=== PATIENT | female | born 1980 | race Caucasian/White ===

== ENCOUNTER 2017-05-06 16:42 | Emergency (ER) | payer OTHER ==
[2017-05-06] MEDS ORDERED: DIPHENHYDRAMINE 50 MG/ML VIAL ONE (17:22)
[2017-05-06] MEDS ORDERED: DEXAMETHASONE 10 MG/ML VIAL ONE (17:22)
[2017-05-06] MEDS ORDERED: TRAMADOL HCL 50 MG TAB ONE (17:22)
[2017-05-06] MEDS ORDERED: MAGNESIUM SULFATE 1 gm IVPB 1 GM/100 ML BAG IV ONE (17:23)
[2017-05-06] MEDS ORDERED: KETOROLAC 30 MG/ML INJ ONE (17:23)
[2017-05-06] MEDS ORDERED: ONDANSETRON 4 MG/2 ML VIAL ONE ×2 (17:39→18:00)
[2017-05-06] MEDS ORDERED: PROMETHAZINE 25 MG/ML VIAL ONE (18:57)
[2017-05-06] MEDS ORDERED: MEPERIDINE HCL 50 MG/ML AMP ONE (18:57)
--- NOTE | 2017-05-06 19:25 | ER ---
Nurse's Notes [facility] Name: Luis Felipe Nova Age: 37 yrs Sex: Female : 1980 Arrival Date: 05/06/2017 Time: 16:45 Bed 8 Private MD: Diagnosis: Migraine Presentation: 05/06 16:54 Presenting complaint: Patient states: Intractable migraine for one week. Similar to la1 previous. Transition of care: patient was not received from another setting of care. Onset of symptoms was May 06, 2017. Care prior to arrival: None. 16:54 Method Of Arrival: Ambulatory la1 16:54 Acuity: BRIANNA 3 la1 Triage Assessment: 16:57 Headache History: The patient has had previous headaches and this one is similar to la1 previous episodes. General: Appears in no apparent distress. Behavior is calm, cooperative. Pain: Pain currently is 8 out of 10 on a pain scale. Pain began 2-3 days ago. Also complains of nausea. Historical: - Allergies: 16:56 Sulfa (Sulfonamide Antibiotics); la1 16:56 Reglan; la1 - PMHx: 16:56 Migraines; la1 - Immunization history:: Adult Immunizations up to date. - Social history:: Smoking status: Patient/guardian denies using tobacco. Screenin:57 Abuse screen: Denies threats or abuse. Nutritional screening: No deficits noted. la1 Tuberculosis screening: No symptoms or risk factors identified. Fall Risk None identified. Assessment: 16:56 General: Appears in no apparent distress. Behavior is calm, cooperative. Pain: la1 Complains of pain in forehead, right eye and right cheek. Neuro: Level of Consciousness is awake, alert, obeys commands, Oriented to person, place, time, situation. Cardiovascular: Capillary refill < 3 seconds Patient's skin is warm and dry. Respiratory: Airway is patent Respiratory effort is even, unlabored, Respiratory pattern is regular, symmetrical. GI: No signs and/or symptoms were reported involving the gastrointestinal system. : No signs and/or symptoms were reported regarding the genitourinary system. Vital Signs: 16:56 BP 131 / 91; Pulse 94; Resp 16; Temp 98.3; Pulse Ox 100% on R/A; la1 19:04 BP 128 / 86; Pulse 96; Resp 16; Pulse Ox 100% on R/A; la1 19:39 BP 129 / 56; Pulse 89; Resp 19; Pulse Ox 100% on R/A; la1 ED Course: 16:45 Patient arrived in ED. mr 16:48 [facility] jr8 16:48 Mike Hernandez MD is Attending Physician. jr8 16:54 Juan Jose Ordoñez, KEESHA is Primary Nurse. la1 16:55 Triage completed. la1 16:56 Arm band placed on left wrist. la1 16:57 Bed in low position. Call light in reach. la1 19:40 No provider procedures requiring assistance completed. IV discontinued, intact, la1 bleeding controlled, No redness/swelling at site. Pressure dressing applied. Administered Medications: 17:24 Drug: Decadron - Dexamethasone 10 mg Route: IVP; Site: right antecubital; la1 17:38 Follow up: Response: No adverse reaction la1 17:24 Drug: Benadryl 50 mg Route: IVP; Site: right antecubital; la1 17:38 Follow up: Response: No adverse reaction la1 17:24 Drug: Magnesium Sulfate 1 grams Route: IVPB; Infused Over: 1 hrs; Site: right la1 antecubital; 19:41 Follow up: IV Status: Completed infusion la1 17:24 Drug: traMADol 100 mg Route: PO; la1 17:38 Follow up: Response: No adverse reaction; Pain is decreased la1 17:24 Drug: Zofran 4 mg Route: IVP; Site: right antecubital; la1 17:38 Follow up: Response: No adverse reaction la1 17:25 Drug: TORadol 30 mg Route: IVP; Site: right antecubital; la1 17:38 Follow up: Response: No adverse reaction; Pain is decreased la1 17:43 Drug: Zofran 4 mg Route: IVP; Site: right antecubital; la1 19:41 Follow up: Response: No adverse reaction la1 18:46 Drug: Demerol 50 mg Route: IVP; Site: right antecubital; la1 19:41 Follow up: Response: No adverse reaction; Pain is decreased la1 18:47 Drug: Phenergan 25 mg Route: IVP; Site: right antecubital; la1 19:41 Follow up: Response: No adverse reaction la1 Outcome: 19:24 Discharge ordered by . adam 19:40 Discharged to home ambulatory. la1 19:40 Condition: stable 19:40 Discharge instructions given to patient, Instructed on discharge instructions, follow up and referral plans. medication usage, Demonstrated understanding of instructions, follow-up care. 19:40 Patient left the ED. la1 Signatures: Rachael Godinez mr Bryan Griffiths PA PA jr8 Attema, Lee, RN RN la1
--- NOTE | 2017-05-06 19:25 | EDPHYS ---
Physician Documentation [facility] Name: Luis Felipe Nova Age: 37 yrs Sex: Female : 1980 Arrival Date: 05/06/2017 Time: 16:45 Bed 8 Private MD: ED Physician Mike Hernandez HPI: 05/06 18:42 This 37 yrs old Female presents to ER via Ambulatory with complaints of jr8 Headache. 18:42 The patient complains of pain to the forehead. The patient describes the headache as jr8 constant, throbbing. Onset: The symptoms/episode began/occurred acutely, 1 week(s) ago. Associated signs and symptoms: Pertinent positives: nausea, Photophobia. Severity of symptoms: At its worst the pain was moderate, in the emergency department the pain is unchanged. Headache History: The patient has had previous headaches and this one is similar to previous episodes. The symptoms are alleviated by nothing. the symptoms are aggravated by lights, movement, noise. The patient has experienced similar episodes in the past, a few times. The patient has not recently seen a physician. Stated that ever since she had bacterial meningitis 4 years ago. Has had on/off headaches. Sees neurology for them. Tried her OTC medicines for acute headache but did not respond to them. Historical: - Allergies: 16:56 Sulfa (Sulfonamide Antibiotics); la1 16:56 Reglan; la1 - PMHx: 16:56 Migraines; la1 - Immunization history:: Adult Immunizations up to date. - Social history:: Smoking status: Patient/guardian denies using tobacco. ROS: 18:42 Eyes: Negative for injury, pain, redness, and discharge, ENT: Negative for injury, jr8 pain, and discharge, Neck: Negative for injury, pain, and swelling, Cardiovascular: Negative for chest pain, palpitations, and edema, Respiratory: Negative for shortness of breath, cough, wheezing, and pleuritic chest pain, Abdomen/GI: Negative for abdominal pain, nausea, vomiting, diarrhea, and constipation, Back: Negative for injury and pain, MS/Extremity: Negative for injury and deformity, Skin: Negative for injury, rash, and discoloration. 18:42 Neuro: Positive for headache, Negative for altered mental status, dizziness, gait disturbance, hearing loss, loss of consciousness, numbness, seizure activity, speech changes, syncope, near syncope, tingling, tinnitus, tremor, visual changes, weakness. Exam: 18:42 Head/Face: Normocephalic, atraumatic. Eyes: Pupils equal round and reactive to light, jr8 extra-ocular motions intact. Lids and lashes normal. Conjunctiva and sclera are non-icteric and not injected. Cornea within normal limits. Periorbital areas with no swelling, redness, or edema. ENT: Nares patent. No nasal discharge, no septal abnormalities noted. Tympanic membranes are normal and external auditory canals are clear. Oropharynx with no redness, swelling, or masses, exudates, or evidence of obstruction, uvula midline. Mucous membranes moist. Neck: Trachea midline, no thyromegaly or masses palpated, and no cervical lymphadenopathy. Supple, full range of motion without nuchal rigidity, or vertebral point tenderness. No Meningismus. Cardiovascular: Regular rate and rhythm with a normal S1 and S2. No gallops, murmurs, or rubs. Normal PMI, no JVD. No pulse deficits. Respiratory: Lungs have equal breath sounds bilaterally, clear to auscultation and percussion. No rales, rhonchi or wheezes noted. No increased work of breathing, no retractions or nasal flaring. Abdomen/GI: Soft, non-tender, with normal bowel sounds. No distension or tympany. No guarding or rebound. No evidence of tenderness throughout. Back: No spinal tenderness. No costovertebral tenderness. Full range of motion. Skin: Warm, dry with normal turgor. Normal color with no rashes, no lesions, and no evidence of cellulitis. MS/ Extremity: Pulses equal, no cyanosis. Neurovascular intact. Full, normal range of motion. Neuro: Awake and alert, GCS 15, oriented to person, place, time, and situation. Cranial nerves II-XII grossly intact. Motor strength 5/5 in all extremities. Sensory grossly intact. Cerebellar exam normal. Normal gait. Vital Signs: 16:56 BP 131 / 91; Pulse 94; Resp 16; Temp 98.3; Pulse Ox 100% on R/A; la1 19:04 BP 128 / 86; Pulse 96; Resp 16; Pulse Ox 100% on R/A; la1 19:39 BP 129 / 56; Pulse 89; Resp 19; Pulse Ox 100% on R/A; la1 MDM: 16:48 Patient medically screened. jr8 19:23 Data reviewed: vital signs, nurses notes, and as a result, I will discharge patient. jr8 Data interpreted: Pulse oximetry: on room air is 100 %. Interpretation: normal. Counseling: I had a detailed discussion with the patient and/or guardian regarding: the historical points, exam findings, and any diagnostic results supporting the discharge/admit diagnosis, the need for outpatient follow up, a neurologist, to return to the emergency department if symptoms worsen or persist or if there are any questions or concerns that arise at home. Response to treatment: the patient's symptoms have markedly improved after treatment. 05/06 17:00 Order name: IV; Complete Time: 17:25 jr8 Administered Medications: 17:24 Drug: Decadron - Dexamethasone 10 mg Route: IVP; Site: right antecubital; la1 17:38 Follow up: Response: No adverse reaction la1 17:24 Drug: Benadryl 50 mg Route: IVP; Site: right antecubital; la1 17:38 Follow up: Response: No adverse reaction la1 17:24 Drug: Magnesium Sulfate 1 grams Route: IVPB; Infused Over: 1 hrs; Site: right la1 antecubital; 19:41 Follow up: IV Status: Completed infusion la1 17:24 Drug: traMADol 100 mg Route: PO; la1 17:38 Follow up: Response: No adverse reaction; Pain is decreased la1 17:24 Drug: Zofran 4 mg Route: IVP; Site: right antecubital; la1 17:38 Follow up: Response: No adverse reaction la1 17:25 Drug: TORadol 30 mg Route: IVP; Site: right antecubital; la1 17:38 Follow up: Response: No adverse reaction; Pain is decreased la1 17:43 Drug: Zofran 4 mg Route: IVP; Site: right antecubital; la1 19:41 Follow up: Response: No adverse reaction la1 18:46 Drug: Demerol 50 mg Route: IVP; Site: right antecubital; la1 19:41 Follow up: Response: No adverse reaction; Pain is decreased la1 18:47 Drug: Phenergan 25 mg Route: IVP; Site: right antecubital; la1 19:41 Follow up: Response: No adverse reaction la1 Disposition: 05/06/17 19:24 Discharged to Home. Impression: Migraine. - Condition is Stable. - Discharge Instructions: Migraine Headache. - Medication Reconciliation Form, Thank You Letter, Antibiotic Education, Prescription Opioid Use form. - Follow up: Private Physician; When: 2 - 3 days; Reason: Recheck today's complaints, Continuance of care, Re-evaluation by your physician. - Problem is new. - Symptoms have improved. Addendum: 05/08/2017 07:00 Co-signature as Attending Physician, Mike Hernandez MD I agree with the assessment and k dr plan of care. Signatures: Mike Hernandez MD MD [facility] Bryan Griffiths PA PA jr8 Juan Jose Ordoñez RN RN la1
[2017-05-06 19:44] VITALS: TEMP 98.3; O2SAT 100
[2017-05-06 19:46] VITALS: BP 129/56
== END 2017-05-06 19:40 | disposition home or self-care (01) ==
LOC: ER 16:42
DX: G43.909 Migraine, unspecified, not intractable, without status migrainosus (principal); Z88.2 Allergy status to sulfonamides; Z88.8 Allergy status to other drugs, medicaments and biological substances
CPT/HCPCS: 96365; 96366; 96375; 99283; J1100; J2175; J2405; J2550; J3475

== ENCOUNTER 2017-06-07 16:18 | Emergency (ER) | payer OTHER ==
--- OUTSIDE RECORDS SUMMARY | 2017-06-07 16:22 | XMS REPORT | Clinical Summary ---
:1980 Author Organization [facility] Address [address] [place] [address] Care Team Providers Name Role Phone Prudence Carr MD Primary Care Provider Allergies Active Allergy Reactions Severity Noted Date Comments Metoclopramide Hcl Diarrhea High 03/03/2016 Sulfa (Sulfonamide Antibiotics) Hives, Rash High 06/12/2013 Current Medications Prescription Sig. Disp. Refills Start End Status Date Date hydroxychloroquine TAKE 1 TABLET 1 Active (PLAQUENIL) 200 mg (200 MG TOTAL) 7 tablet BY MOUTH DAILY FOR 90 DAYS. estrogens, conjugated, Take 1.25 mg by Active (PREMARIN) 1.25 MG mouth daily. tablet levothyroxine Take 137 mcg by 90 tablet 3 Active (SYNTHROID, LEVOXYL) mouth every 7 137 mcg tablet morning. ARNUITY ELLIPTA 100 Active mcg/actuation blister 8 with device butalbital-acetaminoph Take 2 tablets 180 tablet 0 Active en-caff (FIORICET, by mouth 3 8 018 ESGIC) 50-325-40 mg (three) times a per tablet day for 30 days. gabapentin (NEURONTIN) Take 1 capsule 90 capsule 0 Active 100 mg capsule (100 mg total) 8 018 by mouth 3 (three) times a day for 30 days. zonisamide (ZONEGRAN) Take 1 capsule 30 capsule 0 Active 100 MG capsule (100 mg total) 8 018 by mouth nightly for 30 days. DULoxetine (CYMBALTA) Take 1 capsule 60 capsule 0 Active 60 MG capsule (60 mg total) 8 018 by mouth 2 (two) times a day for 30 days. traZODone (DESYREL) Take 1 tablet 30 tablet 0 Active 100 MG tablet (100 mg total) 8 018 by mouth every evening for 30 days. escitalopram (LEXAPRO) Take 20 mg by Discontinued 20 MG tablet mouth every 017 morning. estrogens, conjugated, Take 1 tablet 90 tablet 3 Discontinued (PREMARIN) 1.25 MG (1.25 mg total) 6 017 tabletIndications: Hot by mouth daily. flashes due to menopause pimecrolimus (ELIDEL) Apply 1 Discontinued 1 % cream application 017 topically every evening. topiramate (TOPAMAX) 1 tab qAM, 1 75 tablet 5 Discontinued 50 MG tablet 1/2 tabs qPM 7 017 dihydroergotamine 1 spray in each 8 mL 11 Discontinued (MIGRANAL) 0.5 mg/pump nostril at the 7 017 act. (4 mg/mL) nasal onset of spray migraine. Repeat after 15 minutes if needed SYNTHROID 112 mcg TAKE 1 TABLET 30 tablet 1 Discontinued tablet (112 MCG TOTAL) 7 017 BY MOUTH EVERY MORNING. promethazine Take 1 tablet 30 tablet 0 (PHENERGAN) 25 MG (25 mg total) 7 017 tabletIndications: by mouth every Nausea 6 (six) hours as needed for nausea or vomiting for up to 30 days. valproic acid Take 250 mg by Discontinued (DEPAKENE) 250 mg mouth 2 (two) 7 018 capsule times a day. docusate sodium Take 1 capsule 60 capsule 0 (COLACE) 100 MG (100 mg total) 7 017 capsule by mouth 2 (two) times a day for 30 days. hyoscyamine Take 1 tablet 90 tablet 0 (LEVSIN/SL) 0.125 mg (0.125 mg 7 017 SL tablet total) by mouth every 4 (four) hours as needed for cramping for up to 30 days. sodium,potassium,mag Use as 2 Bottle 0 Discontinued sulfates (SUPREP BOWEL directed, 7 017 PREP KIT) dispense entire 17.5-3.13-1.6 gram kit recon soln PROMETHAZINE HCL Take by mouth Discontinued (PROMETHAZINE ORAL) as needed. 017 doxepin 6 mg tablet Take 6 mg by 90 tablet 0 Discontinued mouth nightly. 7 017 levothyroxine Take 1 tablet 30 tablet 1 Discontinued (SYNTHROID, LEVOXYL) (125 mcg total) 7 017 125 mcg tablet by mouth every morning. doxylamine (UNISON) 25 Take 1 tablet 30 tablet 0 mg tablet (25 mg total) 7 017 by mouth nightly as needed for sleep for up to 30 days. azithromycin Discontinued (ZITHROMAX) 250 MG 7 017 tablet meloxicam (MOBIC) 15 Take 1 tablet 30 tablet 2 Discontinued mg tabletIndications: (15 mg total) 7 017 Positive LISY by mouth daily. (antinuclear antibody) traMADol (ULTRAM) 50 Take 1 tablet 9 tablet 0 mg tablet (50 mg total) 7 017 by mouth every 8 (eight) hours as needed for moderate pain for up to 3 days. levothyroxine Take 137 mcg by 30 tablet 4 Discontinued (SYNTHROID, LEVOXYL) mouth every 7 017 137 mcg tablet morning. hydroxychloroquine Take 1 tablet 180 tablet 1 (PLAQUENIL) 200 mg (200 mg total) 7 017 tablet by mouth daily for 90 days. DULoxetine (CYMBALTA) 1 CAPSULE BY 1 Discontinued 60 MG capsule MOUTH DAILY 7 018 bacitracin 500 Apply topically 28 g 1 unit/gram ointment 2 (two) times a 7 017 day for 14 days. doxycycline Take 1 capsule 20 capsule 0 (VIBRAMYCIN) 50 MG (50 mg total) capsule by mouth 2 (two) times a day for 10 days. bacitracin ointment APPLY TOPICALLY 1 Discontinued tube 2 (TWO) TIMES A 017 DAY FOR 14 DAYS. nitrofurantoin, Take 1 capsule 10 capsule 0 macrocrystal-monohydra (100 mg total) te, (MACROBID) 100 MG by mouth 2 capsule (two) times a day for 5 days. meloxicam (MOBIC) 15 TAKE 1 TABLET 30 tablet 2 Discontinued mg tabletIndications: (15 MG TOTAL) Positive LISY BY MOUTH DAILY. (antinuclear antibody) ACETAMINOPHEN (TYLENOL Take 1 tablet Discontinued ORAL) by mouth daily 017 as needed (for mild pain). diazePAM (VALIUM) 10 One tablet by 1 tablet 0 MG tabletIndications: mouth 45 mins 017 Anxiety before proceedure traZODone (DESYREL) 50 Take 50 mg by 1 Discontinued MG tablet mouth every 7 017 evening. acetaminophen Take 500 mg by Discontinued (TYLENOL) 500 MG mouth every 4 018 tablet (four) hours as needed for mild pain. levothyroxine Take 137 mcg by Discontinued (SYNTHROID, LEVOXYL) mouth every 017 137 mcg tablet morning. meloxicam (MOBIC) 15 Take 15 mg by Discontinued mg tablet mouth daily. 018 traZODone (DESYREL) 50 Take 50 mg by Discontinued MG tablet mouth every 018 evening. FLUoxetine (PROzac) 20 Take 40 mg by Discontinued MG capsule mouth daily. 018 traMADol-acetaminophen Take 1 tablet 10 tablet 0 (ULTRACET) 37.5-325 mg by mouth every 7 017 per tablet 6 (six) hours as needed for moderate pain for up to 5 days. predniSONE (DELTASONE) Take 1 tablet 5 tablet 0 50 mg tablet (50 mg total) 7 017 by mouth daily for 5 days. naproxen (NAPROSYN) Take 1 tablet 14 tablet 0 Discontinued 500 MG tablet (500 mg total) 8 018 by mouth 2 (two) times a day with meals for 7 days. PREMARIN 1.25 mg TAKE 1 TABLET 90 tablet 1 Discontinued tabletIndications: Hot (1.25 MG TOTAL) 8 018 flashes due to BY MOUTH DAILY. menopause meloxicam (MOBIC) 15 TAKE 1 TABLET 30 tablet 2 Discontinued mg tabletIndications: (15 MG TOTAL) 8 018 Positive LISY BY MOUTH DAILY. (antinuclear antibody) traMADol (ULTRAM) 50 Take 1 tablet 120 tablet 0 mg tablet (50 mg total) 8 018 by mouth every 6 (six) hours as needed for moderate pain for up to 31 days. predniSONE (DELTASONE) Days 1-3:8 tab 120 tablet 1 5 mg PO AM;4-7 7 tab 8 018 tabletIndications: PO AM;8-11:6 Myalgia tab PO AM;12-15-5 tab PO AM;16-19:4 tab PO AM;20-23:3 tab PO AM;24-27:2 tab PO AM;28-31:1 tab PO methylPREDNISolone follow package 21 tablet 0 (MEDROL DOSEPAK) 4 mg directions 8 018 tablet promethazine Take 1 tablet 20 tablet 0 (PHENERGAN) 12.5 MG (12.5 mg total) 8 018 tablet by mouth every 6 (six) hours as needed for nausea or vomiting for up to 5 days. Active Problems Problem Noted Date Status migrainosus 05/14/2017 Chest pain 01/05/2017 Migraine with status migrainosus 03/04/2016 Acquired hypothyroidism 02/16/2016 Deep vein thrombosis 02/07/2014 Overview: had blood clot to left arm from IV, treated with bld.thinner for 6 mos.and cleared now. Anxiety and depression Encounters Date Type Specialty Care Team Description 05/25/2017 Procedure Pass Obstetrics and Gynecology 05/24/2017 Telephone Gastroenterology Jodi Cohn MA 05/17/2017 Orders Only Radiology Josue Mclaughlin 05/14/2017 [facility] Obstetrics and Chuy Wang Status migrainosus ( Primary Dx); - Encounter Gynecology MD Alton Intractable headache, unspecified chronicity pattern, unspecified headache type 05/26/2017 Mike Leyva MD Ahmed, Rezwan, MD Nguyen, Leanne, MD 05/07/2017 Emergency Emergency Medicine Mike Leyva Intractable migraine MD Surendra without aura and without status migrainosus (Primary Dx) 04/29/2017 Hospital Radiology Jessy, Generalized abdominal Encounter Leonidas Amato MD pain 04/28/2017 Telephone Gastroenterology Leonidas Jiménez MD 04/20/2017 Telephone Rheumatology Juliana Jin MA 04/14/2017 Office Visit Gastroenterology Jessy, Meka abdominal Leonidas Amato MD pain (Primary Dx) 04/14/2017 Telephone Gastroenterology Jodi Cohn MA 03/31/2017 Telephone Gastroenterology Ginger Magallon LVN 03/29/2017 Orders Only Rheumatology Radu Curry IgA deficiency (Primary Dx); MD Kiel Diarrhea due to malabsorption 03/29/2017 Orders Only Rheumatology Juliana Jin MA 03/22/2017 Telephone Rheumatology Juliana Jin MA 03/21/2017 Orders Only Rheumatology Davin, Parathyroid abnormality ( Primary Dx); FABIO Andrews Myalgia 03/16/2017 Orders Only Rheumatology Davin, Pain of upper abdomen FABIO Andrews (Primary Dx) 03/15/2017 Office Visit Rheumatology Radu Curry Myalgia (Primary Dx); MD Kiel Positive LISY (antinuclear antibody); Epigastric pain; Hypocalcemia; 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; Encounter for long-term (current) use of NSAIDs; Vitamin D deficiency 03/14/2017 Orders Only Rheumatology Juliana Jin MA 03/11/2017 Lab Lab Leonidas Jiménez MD 03/03/2017 Telephone Gastroenterology Leonidas Jiménez MD 03/02/2017 Hospital Radiology [place], Abnormal ultrasound Encounter Prudence Kramer MD of liver 03/02/2017 Telephone Gastroenterology Jodi Cohn MA 02/24/2017 Office Visit Rheumatology Radu Curry Costochondritis ( Primary Dx); MD Kiel Myalgia; Positive LISY (antinuclear antibody); Epigastric pain; Iron deficiency anemia due to chronic blood loss 02/24/2017 Refill Rheumatology Radu Curry Positive LISY MD Kiel (antinuclear antibody) 02/18/2017 Office Visit Internal Medicine [place], Pleurisy (Primary Dx); Prudence Kramer MD Abnormal ultrasound of liver 02/18/2017 Procedure Pass Radiology 02/18/2017 Refill Obstetrics and [place], Hot flashes due to Gynecology [place], menopause 02/18/2017 Abstract Cardiothoracic Surgery Claudy Garber MD 02/04/2017 Orders Only Internal Medicine Mary Givens MA 01/17/2017 Telephone Gastroenterology Jodi Cohn MA 01/09/2017 Emergency Emergency Medicine Stuart, Ángela, Other chest pain PA (Primary Dx) Mike Leyva MD 01/05/2017 Emergency General Internal Ángela Davidson, Chest pain, unspecified type (Primary Dx); - Medicine PA Anxiety and depression 01/08/2017 Reymundo Heart MD Nguyen, Leanne, MD 01/05/2017 Hospital Radiology [place], Shortness of breath Encounter Prudence Kramer MD 01/05/2017 Office Visit Internal Medicine [place], Shortness of breath Prudence Kramer MD (Primary Dx) 01/03/2017 Orders Only Internal Medicine Adelina Wiley, Myalgia (Primary Dx ); FABIO Positive LISY (antinuclear antibody) 01/01/2017 Emergency Emergency Medicine Jn Muro Chronic right-sided low back pain without sciatica (Primary Dx); MD Enrico Myalgia; Chest pain, unspecified type 12/21/2016 Telephone Gastroenterology Jodi Cohn MA 12/14/2016 Lab Lab Ami Suarez MD 12/14/2016 Hospital Radiology [place], Calcification of Encounter Ami Ordoñez, right breast 12/14/2016 Hospital Radiology Erick, Calcification of Encounter [place] Ordoñez, right breast 12/14/2016 Hospital Radiology [place], Calcification of Encounter [place] Ordoeñz, right breast 12/14/2016 Ancillary Orders Access [place], Calcification of Ami Ordoñez, right breast 12/14/2016 Ancillary Orders Access [place], Calcification of [place] Ordoñez, right breast 12/06/2016 Hospital Radiology [place], Right flank pain Encounter Prudence Kramer MD 11/30/2016 Office Visit Internal Medicine [place], Right flank pain Prudence Kramer MD (Primary Dx) 11/30/2016 Refill Obstetrics and Danilo, Anxiety (Primary Dx) Gynecology YAMIL Alexander 11/26/2016 Transcribe Orders Access [place], Calcification of right breast ( Primary Dx); [place], Breast calcifications 11/26/2016 Telephone Radiology Efren Gutierrez RN 11/25/2016 Hospital Radiology [place], Breast discharge Encounter Ami Ordoñez MD 11/25/2016 Hospital Radiology [place], Breast discharge Encounter Ami Ordoñez MD 11/25/2016 Ancillary Orders Obstetrics and [place], Breast discharge Gynecology Ami Ordoñez MD 11/25/2016 Ancillary Orders Obstetrics and [place], Breast discharge Gynecology Ami Ordoñez MD 11/21/2016 Refill Rheumatology Radu Curry MD (antinuclear antibody) 11/17/2016 Telephone Obstetrics and [place], Breast discharge Gynecology YAMIL Alexander (Primary Dx) 11/10/2016 Office Visit Internal Medicine [place], Back pain, Prudence Kramer MD unspecified back location, unspecified back pain laterality, unspecified chronicity (Primary Dx) 10/24/2016 Orders Only Internal Medicine [place], Paronychia of toe, Prudence Kramer MD unspecified laterality (Primary Dx) 10/21/2016 Office Visit Internal Medicine [place], Acquired hypothyroidism (Primary Dx); Prudence Kramer MD Other forms of migraine with status migrainosus; Anxiety and depression 09/13/2016 Orders Only Rheumatology Juliana Jin MA 09/07/2016 Orders Only Internal Medicine [place], Prudence Kramer MD 09/03/2016 Orders Only Internal Medicine [place], Acquired Prudence Kramer MD hypothyroidism (Primary Dx) 09/02/2016 Office Visit Internal Medicine [place], Anxiety and depression (Primary Dx); Prudence Kramer MD Acquired hypothyroidism; Tightness in chest 09/01/2016 Emergency Emergency Medicine [place], Shortness of breath Harshil Ruiz (Primary Dx) 08/30/2016 Office Visit Rheumatology Radu Curry Positive LISY ( antinuclear antibody) (Primary Dx); MD Kiel Myalgia; Fatigue, unspecified type 08/12/2016 Orders Only Internal Medicine Zoila Zepeda MD 08/11/2016 Office Visit Internal Medicine Katelyn, Myalgia (Primary Dx); MD Zoila Acquired hypothyroidism; Muscle cramp; Positive LISY (antinuclear antibody); Sleep disturbance; Mild episode of recurrent major depressive disorder 08/04/2016 Telephone Rheumatology Juliana Jin MA 07/26/2016 Office Visit Internal Medicine [place], Left lower quadrant pain (Primary Dx); Prudence Kramer MD Depression, unspecified depression type; Acquired hypothyroidism 07/26/2016 Lab Lab Radu Curry Raynaud's disease without gangrene; MD Kiel History of miscarriage; Other forms of migraine with status migrainosus; Deep vein thrombosis (DVT) of other vein of left upper extremity, unspecified chronicity; Acquired hypothyroidism; Cholecystitis without calculus; Chronic bilateral low back pain without sciatica 07/26/2016 Office Visit Rheumatology Radu Curry History of miscarriage (Primary Dx); MD Kiel Raynaud's disease without gangrene; Acquired hypothyroidism; Other forms of migraine with status migrainosus; Deep vein thrombosis (DVT) of other vein of left upper extremity, unspecified chronicity; Chronic bilateral low back pain without sciatica; Cholecystitis without calculus 07/19/2016 Office Visit Internal Medicine [place], Left lower quadrant pain (Primary Dx); Prudence Kramer MD Depressive disorder; Acquired hypothyroidism 07/14/2016 Telephone Obstetrics and [place], Pelvic pain in female Gynecology YAMIL Alexander (Primary Dx) 07/07/2016 Lab Lab Leonidas Jiménez MD 07/06/2016 [facility] Radiology [place], Abnormal finding on Encounter Prudence Kramer MD radiology exam 06/30/2016 Telephone Gastroenterology Jodi Cohn MA 06/29/2016 Procedure Pass Radiology 06/29/2016 Orders Only Internal Medicine Adelina Wiley, Abnormal finding on ID radiology exam (Primary Dx) 06/28/2016 Hospital Radiology [place], LLQ pain Encounter Leonidas Amato MD 06/24/2016 Telephone Gastroenterology Lalit, LLQ pain (Primary Dx) FABIO Zapata 06/23/2016 Office Visit Gastroenterology Jessy, Left lower quadrant pain (Primary Dx); Leonidas Amato MD Change in bowel habits 06/21/2016 Office Visit Internal Medicine [place], Chest pressure ( Primary Dx); Prudence Kramer MD Abdominal distention; Hypothyroidism, unspecified type; Constipation, unspecified constipation type 06/18/2016 Telephone Obstetrics and [place], Nausea (Primary Dx) Gynecology 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, 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 06/16/2016 Office Visit Obstetrics and [place], Pelvic pain in female Gynecology Ami Ordoñez (Primary Dx) after 06/06/2016 Immunizations Name Dates Previously Given Next Due Tdap 03/29/2008 Family History Medical History Relation Name Comments Diabetes Father Thyroid disease Father Diabetes Maternal Grandfather Cancer Maternal Grandmother Fibromyalgia Mother Colon cancer Paternal Grandfather Relation Name Status Comments Father Alive Maternal Grandfather Alive Maternal Grandmother Mother Alive Paternal Grandfather Alive Social History Tobacco Use Types Packs/Day Years Used Date Never Smoker Smokeless Tobacco: Never Used Alcohol Use Drinks/Week oz/Week Comments Yes social Sex Assigned at Date Recorded Not on file Last Filed Vital Signs Vital Sign Reading Time Taken Blood Pressure 132/74 05/26/2017 8:27 AM CDT Pulse 79 05/26/2017 8:27 AM CDT Temperature 36.3 C (97.3 F) 05/26/2017 8:27 AM CDT Respiratory Rate 18 05/26/2017 8:27 AM CDT Oxygen Saturation 97% 05/26/2017 8:27 AM CDT Inhaled Oxygen Concentration - - Weight 113 kg (250 lb) 05/17/2017 12:30 PM CDT Height 167.6 cm (5' 6") 05/17/2017 12:30 PM CDT Body Mass Index 40.35 05/17/2017 12:30 PM CDT Plan of Treatment Date Type Specialty Care Team Description 06/09/2017 Office Visit Rheumatology Kaleigh López [place] [address] [id number] Health Maintenance Due Date Last Done Comments PAP SMEAR 02/11/2014 02/11/2011 INFLUENZA VACCINE 09/07/2017 Procedures Procedure Name Priority Date/Time Associated Comments Diagnosis ECHOCARDIOGRAM 2D Routine 01/07/2017 3:45 Results for this COMPLETE W MMODE PM [employer] procedure are in SPECTRAL COLOR DOPPLER the results (45787) section. CV STRESS TEST NUCLEAR Routine 01/06/2017 9:07 Results for this CARDIO AM [employer] SCI[employer]ACTITIONER procedure are in the results section. after 06/06/2016 Results MRI Brain Wo Contrast (05/25/2017 4:31 PM) Specimen Performing Laboratory [facility] [address] [place] [id number] Narrative EXAMINATION:MRI BRAIN WO CONTRAST CLINICAL HISTORY:speech change COMPARISON:May 17, 2017 Findings: No intracranial hemorrhage, acute ischemia, extra-axial fluid collections or parenchymal mass lesions. No hydrocephalus. No suspicious focal bone marrow lesions. Major flow voids are maintained. IMPRESSION: No acute intracranial abnormalities or mass lesions. [id number] Procedure Note Interface, Radiology Results Incoming - 05/25/2017 4:52 PM CDT EXAMINATION: MRI BRAIN WO CONTRAST CLINICAL HISTORY: speech change COMPARISON: May 17, 2017 Findings: No intracranial hemorrhage, acute ischemia, extra-axial fluid collections or parenchymal mass lesions. No hydrocephalus. No suspicious focal bone marrow lesions. Major flow voids are maintained. IMPRESSION: No acute intracranial abnormalities or mass lesions. [id number] Partial thromboplastin time, activated (05/25/2017 3:00 PM)Only the most recent of3 resultswithin the time period is included. Component Value Ref Range PTT 28.3 23.0 - 36.0 sec Comment: PTT therapeutic range for unfractionated heparin is 61.0-112.0 seconds which corresponds to Anti-Xa 0.3-0.7 U/ml. Specimen Performing Laboratory Blood [facility] DEPARTMENT OF PATHOLOGY AND GENOMIC MEDICINE [address] [place] [id number] Prothrombin time with INR (05/25/2017 3:00 PM)Only the most recent of3 resultswithin the time period is included. Component Value Ref Range Prothrombin time 13.3 12.0 - 15.0 sec INR 1.0 Comment: The International Normalized Ratio (INR) is a therapeutic monitoring tool for patients who are stable on oral anticoagulant therapy. An INR of 2.0-3.0 is suggested for deep vein thrombosis/pulmonary embolism. Specimen Performing Laboratory Blood [facility] DEPARTMENT OF PATHOLOGY AND GENOMIC MEDICINE [address] [place] [address] CBC with platelet and differential (05/25/2017 3:00 PM)Only the most recent of16 resultswithin the time period is included. Component Value Ref Range WBC 8.10 4.50 - 11.00 k/uL RBC 3.79 (L) 4.20 - 5.50 m/uL HGB 11.2 (L) 12.0 - 16.0 g/dL HCT 35.0 (L) 37.0 - 47.0 % MCV 92.3 82.0 - 100.0 fL MCH 29.6 27.0 - 34.0 pg MCHC 32.0 31.0 - 37.0 g/dL RDW - SD 47.0 37.0 - 55.0 fL MPV 10.4 8.8 - 13.2 fL Platelet count 243 150 - 400 k/uL Nucleated RBC 0.00 /100 WBC Neutrophils 55.2 39.0 - 69.0 % Lymphocytes 34.3 25.0 - 45.0 % Monocytes 8.4 0.0 - 10.0 % Eosinophils 1.1 0.0 - 5.0 % Basophils 0.6 0.0 - 1.0 % Immature granulocytes 0.4Comment: "Immature granulocytes" 0.0 - 1.0 % (promyelocytes, myelocytes, metamyelocytes) Specimen Performing Laboratory Blood [facility] DEPARTMENT OF PATHOLOGY AND GENOMIC MEDICINE [address] [place] [id number] Estimated GFR (05/25/2017 2:45 PM)Only the most recent of14 resultswithin the time period is included. Component Value Ref Range GFR Non Af Amer 81 mL/min/1.73 m2 GFR Af Amer >90 mL/min/1.73 m2 Comment: Chronic kidney disease: <60 mL/min/1.73m2 Kidney failure: <15 mL/min/1.73m2 The estimated GFR is calculated from the IDMS-traceable Modification of Diet in Renal Disease Equation. The accuracy of the calculation is poor when the creatinine is normal. Calculated values >90 mL/min/1.73m2 are not reported. This equation has not been validated in children (<18 years), women, the elderly (>70 years), or ethnic groups other than Caucasians and Americans. Specimen Performing Laboratory Plasma specimen [facility] DEPARTMENT OF PATHOLOGY AND [address] [address] Troponin (05/25/2017 2:45 PM)Only the most recent of5 resultswithin the time period is included. Component Value Ref Range Troponin <0.30 0.00 - 0.30 ng/mL Comment: 0.30 - 1.49 ng/mlMay indicate increased risk of acute coronary syndrome. >=1.5 ng/mlConsistent with acute myocardial infarction. The diagnostic value of a single normal or non-diagnostic result is questionable.Serial samples at 2-6 hour intervals are required to rule out acute myocardial injury. Specimen Performing Laboratory Plasma specimen [facility] DEPARTMENT PATHOLOGY [address] [address] Magnesium level (05/25/2017 2:45 PM)Only the most recent of6 resultswithin the time period is included. Component Value Ref Range Magnesium 1.9 1.6 - 2.6 mg/dL Specimen Performing Laboratory Plasma specimen [facility] DEPARTMENT PATHOLOGY [address] [address] Lactic acid level (05/25/2017 2:45 PM) Component Value Ref Range Lactic acid 1.3 0.5 - 2.2 mmol/L Specimen Performing Laboratory Plasma specimen [facility] DEPARTMENT PATHOLOGY [address] [address] Ionized calcium (05/25/2017 2:45 PM)Only the most recent of2 resultswithin the time period is included. Component Value Ref Range pH 7.46 Ionized calcium 1.06 (L) 1.11 - 1.32 mmol/L Specimen Performing Laboratory Plasma specimen [facility] DEPARTMENT PATHOLOGY [address] [address] Basic metabolic panel (05/25/2017 2:45 PM)Only the most recent of11 resultswithin the time period is included. Component Value Ref Range Sodium 142 135 - 148 mEq/L Potassium 4.0 3.5 - 5.0 mEq/L Chloride 107 98 - 112 mEq/L CO2 24 24 - 31 mEq/L Anion gap 11 7 - 15 mEq/L Comment: Starting from May , anion gap calculation no longer incorporates potassium. Please note the change. BUN 10 6 - 20 mg/dL Creatinine 0.8 0.5 - 0.9 mg/dL Glucose 297 (H) 65 - 99 mg/dL Calcium 8.1 (L) 8.3 - 10.2 mg/dL Specimen Performing Laboratory Plasma specimen [facility] DEPARTMENT OF PATHOLOGY AND [facility] MEDICINE [address] [place] [address] ECG 12 lead (05/25/2017 2:30 PM)Only the most recent of9 resultswithin the time period is included. Component Value Ref Range Ventricular rate 103 Atrial rate 103 ME interval 160 QRSD interval 72 QT interval 340 QTC interval 445 P axis 1 59 QRS axis 1 17 T wave axis 41 EKG impression Sinus tachycardia-Possible Left atrial enlargement-Borderline ECG-In automated comparison with ECG of 19-MAY-2017 11:39,-No significant change was found- Specimen Performing Laboratory [facility] [address] [place] [address] POC glucose (05/25/2017 2:16 PM) Component Value Ref Range POC glucose 104 (H) 65 - 99 mg/dL Comment: PENDING SALE TO [facility] Notified RN Meter ID: [id number] Stave Planer Tender: Anna Cano I Specimen Performing Laboratory [facility] [facility] [address] [place] [address] Zinc level, serum (05/25/2017 6:00 AM) Component Value Ref Range Zinc 61 60 - 120 ug/dL Comment: INTERPRETIVE INFORMATION: Zinc, Serum or Plasma Circulating zinc concentrations are dependent on albumin status and are depressed with malnutrition. Zinc may also be lowered with infection, inflammation, stress, oral contraceptives, and . Zinc may be elevated with zinc supplementation or fasting. Elevated zinc concentrations may interfere with copper absorption. Test developed and characteristics determined by [facility]. See Compliance Statement B: [facility]/CS Performed by [facility], [address] [place] [id number] www.[email or web address], Ferny Rodríguez MD - Lab. Director Specimen Performing Laboratory [facility] [address] [place] [phone] CTA Head W Wo Contrast (05/21/2017 8:16 PM) Specimen Performing Laboratory [address] [address] Narrative EXAMINATION: CT ANGIOGRAM HEAD W WO CONTRAST CLINICAL HISTORY: HEADACHEACUTESEVERETHUNDERCLAPWORST GREEN OF LIFE, VENOGRAM PROTOCOL COMPARISON:None TECHNIQUE:Imaging of the intracranial circulation was obtained from the skull base to the vertex during the arterial phase of enhancement. Postprocessing was performed with MIP multiplanar and 3D reconstructed images. CT scans are performed using radiation dose reduction techniques. Technical factors are evaluated and adjusted to ensure appropriate moderation of exposure. Automated dose management technology is applied to adjust radiation exposure while achieving a diagnostic quality image. FINDINGS: No hemodynamically significant stenosis is identified of the intracranial internal carotid arteries, middle cerebral arteries, anterior cerebral arteries, intracranial vertebral arteries, basilar artery or posterior cerebral arteries. There is no aneurysmal dilatation or vascular malformation of the [place]. The major dural sinuses are opacified normally. The internal cerebral veins opacify. IMPRESSION: No hemodynamically significant narrowing of the [place] vessels. No evidence of dural sinus or venous thrombosis. [facility]-[id number] Procedure Note Interface, Radiology Results Incoming - 05/22/2017 12:12 AM CDT EXAMINATION: CT ANGIOGRAM HEAD W WO CONTRAST CLINICAL HISTORY: HEADACHE ACUTE SEVERE THUNDERCLAP WORST GREEN OF LIFE, VENOGRAM PROTOCOL COMPARISON: None TECHNIQUE: Imaging of the intracranial circulation was obtained from the skull base to the vertex during the arterial phase of enhancement. Postprocessing was performed with MIP multiplanar and 3D reconstructed images. CT scans are performed using radiation dose reduction techniques. Technical factors are evaluated and adjusted to ensure appropriate moderation of exposure. Automated dose management technology is applied to adjust radiation exposure while achieving a diagnostic quality image. FINDINGS: No hemodynamically significant stenosis is identified of the intracranial internal carotid arteries, middle cerebral arteries, anterior cerebral arteries , intracranial vertebral arteries, basilar artery or posterior cerebral arteries. There is no aneurysmal dilatation or vascular malformation of the [place]. The major dural sinuses are opacified normally. The internal cerebral veins opacify. IMPRESSION: No hemodynamically significant narrowing of the [place] vessels. No evidence of dural sinus or venous thrombosis. [facility]-[id number] CT Cervical Spine Wo Contrast (05/21/2017 8:04 PM) Specimen Performing Laboratory [facility] [address] [place] [address] Narrative EXAMINATION: CT CERVICAL SPINE WO CONTRAST CLINICAL HISTORY: headacheimbalance COMPARISON:None TECHNIQUE: Noncontrast enhanced imaging through the cervical spine was performed with coronal and sagittal reconstructed images. CT scans are performed using radiation dose reduction techniques (iterative reconstruction and/or automated exposure control). Technical factors are evaluated and adjusted to ensure appropriate moderation of exposure. Automated dose management technology is applied to adjust radiation exposure while achieving a diagnostic quality image. FINDINGS: Cervical lordosis is maintained.No acute fractures or subluxations.No soft tissue abnormalities are seen. No degenerative change. IMPRESSION: No acute osseous abnormality. [facility]-[id number] Procedure Note Hm Interface, Radiology Results Incoming - 05/22/2017 12:18 AM CDT EXAMINATION: CT CERVICAL SPINE WO CONTRAST CLINICAL HISTORY: headache imbalance COMPARISON: None TECHNIQUE: Noncontrast enhanced imaging through the cervical spine was performed with coronal and sagittal reconstructed images. CT scans are performed using radiation dose reduction techniques (iterative reconstruction and/or automated exposure control). Technical factors are evaluated and adjusted to ensure appropriate moderation of exposure. Automated dose management technology is applied to adjust radiation exposure while achieving a diagnostic quality image. FINDINGS: Cervical lordosis is maintained. No acute fractures or subluxations. No soft tissue abnormalities are seen. No degenerative change. IMPRESSION: No acute osseous abnormality. [facility]-[id number] LISY (05/21/2017 4:24 PM)Only the most recent of2 resultswithin the time period is included. Component Value Ref Range LISY screen Negative Negative Specimen Performing Laboratory Blood [facility]PART[facility] OF PATHOLOGY AND [facility] [address] [place] [address] Folate level (05/21/2017 4:24 PM) Component Value Ref Range Folate 7.3 4.8 - 24.2 ng/mL Specimen Performing Laboratory Serum [facility]PARTMENT OF PATHOLOGY AND [facility] [address] [place] [address] Vitamin B12 level (05/21/2017 4:24 PM)Only the most recent of2 resultswithin the time period is included. Component Value Ref Range Vitamin B12 688 211 - 946 pg/mL Comment: Significant overlap exists between normal and deficiency states. However, most patients with deficiencies will have Serum B12 <200 pg/mL. Specimen Performing Laboratory Serum [facility]MENT OF PATHOLOGY AND [facility] [address] [place] [address] Smear review (05/19/2017 5:10 AM) Component Value Ref Range Platelet slide review David adequate Tear drop cells Occasional Ovalocytes Moderate Specimen Performing Laboratory [facility] DEPARTMENT OF PATHOLOGY AND GENOMIC MEDICINE [address] [place] [address] IgG synthesis rate study (05/17/2017 2:53 PM) Component Value Ref Range IgG albumin ratio, CSF 0.12 0.00 - 0.23 IgG index, CSF 0.66 (H) 0.01 - 0.63 IgG synthetic rate 1.75 -9.90 - 3.30 mg/day Q-albumin ratio, CSF 3.96 2.00 - 7.50 IgG, CSF 1.15 1.00 - 3.00 mg/dL Albumin, CSF <9.50 (L) 10.00 - 30.00 mg/dL IgG 437 (L) 700 - 1,600 mg/dL Albumin, S 2,400.0 (L) 3,640.0 - 5,304.0 mg/dL Specimen Performing Laboratory Cerebrospinal fluid [facility]MENT OF PATHOLOGY AND GENOMIC MEDICINE [address] [place] [address] Cytomegalovirus by PCR (05/17/2017 2:53 PM) Component Value Ref Range Cytomegalovirus by PCR Not-Detected Not-Detected IU/mL Cytomegalovirus by PCR See link below for PDF Lab ReportComment: Specimen Performing Laboratory [facility] DEPARTMENT OF PATHOLOGY AND [address] [address] Varicella zoster by PCR (05/17/2017 2:53 PM) Component Value Ref Range VZV result Not-Detected Not-Detected copies/mL Varicella zoster, PCR See link below for PDF Lab ReportComment: Specimen Performing Laboratory [facility] DEPARTMENT OF PATHOLOGY [address] [address] Herpes simplex virus by PCR (05/17/2017 2:53 PM) Component Value Ref Range Herpes virus, PCR Not-Detected Not-Detected Herpes virus, PCR See link below for PDF Lab ReportComment: Specimen Performing Laboratory [facility] DEPARTMENT OF PATHOLOGY [address] [address] Lynda Conroy Virus (EBV) by PCR (05/17/2017 2:53 PM) Component Value Ref Range Lynda Conroy virus, PCR Not-Detected Not-Detected copies/mL Lynda Conroy virus, PCR See link below for PDF Lab ReportComment: Specimen Performing Laboratory [facility] DEPARTMENT OF PATHOLOGY [address] [address] Cryptococcal antigen, screen (05/17/2017 2:53 PM) Component Value Ref Range Cryptococcal Ag Negative - No Cryptococcus antigen detected. Comment: Specimen Information Specimen Source: CSF (Spinal Fluid) Specimen Site: No tube number noted Specimen Performing Laboratory Cerebrospinal fluid - No tube number noted [facility] DEPARTMENT OF PATHOLOGY AND [address] [address] Enterovirus by PCR (05/17/2017 2:53 PM) Component Value Ref Range Enterovirus PCR Not-Detected Not-Detected Enterovirus PCR See link below for PDF Lab ReportComment: Specimen Performing Laboratory [facility]MENT OF PATHOLOGY AND [facility] [address] [place] [address] Gram stain (05/17/2017 2:53 PM) Component Value Ref Range Gram stain isolate Rare WBC's No organisms seen Comment: Specimen Information Specimen Source: CSF (Spinal Fluid) Specimen Site: No tube number noted Specimen Performing Laboratory Cerebrospinal fluid - No tube number noted [facility] DEPARTMENT OF PATHOLOGY AND [address] [address] CSF culture (05/17/2017 2:53 PM) Component Value Ref Range CSF culture isolate No growth after 3 days. Comment: Specimen Information Specimen Source: CSF (Spinal Fluid) Specimen Site: No tube number noted Specimen Performing Laboratory Cerebrospinal fluid - No tube number noted [facility] DEPARTMENT OF PATHOLOGY AND [address] [address] CSF cell count with differential (05/17/2017 2:53 PM) Component Value Ref Range Color, CSF Colorless Appearance, CSF Clear RBC, CSF 2,150 (H) 0 - 1 /CMM WBC, CSF 1 0 - 5 /CMM Comment: Corrected result(s) called to STEPHANY DYE (name/location) at2017 19:01 (date/time) by MN__. Corrected result; previously reported as 7 on 05/17/2017 at 17:58 by MN CSF mononuclear cell 1/CMM Specimen Performing Laboratory Cerebrospinal fluid [facility] DEPARTMENT OF PATHOLOGY AND GENOMIC MEDICINE [address] [place] [address] Protein, CSF (05/17/2017 2:53 PM) Component Value Ref Range Protein, CSF 18 15 - 45 mg/dL Specimen Performing Laboratory Cerebrospinal fluid [facility]MENT OF PATHOLOGY AND GENOMIC MEDICINE [address] [place] [address] Glucose level, CSF (05/17/2017 2:53 PM) Component Value Ref Range Glucose, CSF 62 40 - 70 mg/dL Specimen Performing Laboratory Cerebrospinal fluid [facility]MENT OF PATHOLOGY AND GENOMIC MEDICINE [address] [place] [address] IR Lumbar Puncture by Radiology (05/17/2017 1:52 PM) Specimen Performing Laboratory [address] [address] Narrative EXAMINATION:IR LUMBAR PUNCTURE CLINICAL HISTORY:HEADACHE COMPARISON:None. FINDINGS: Informed consent was obtained prior to the exam. Total fluoroscopy time was 1 second. 2 images were stored during fluoroscopy although no images were obtained. The patient was prepped in a sterile fashion in the prone position. 1% Xylocaine was utilized for local anesthesia. Utilizing fluoroscopic guidance a 22-gauge spinal needle was placed into the subarachnoid space at the L3-4 level. The opening pressure was 16 cm. Approximately 36 mL of initially blood-tinged but later clear cerebrospinal fluid was withdrawn and sent to the laboratory for analysis. There were no complications. The primary surgeon was Dr. Newby. There were no assistants. The patient was sent to the recovery room after the procedure and then back to the floor. IMPRESSION: Successful fluoroscopic guided lumbar puncture to evaluate for headache and meningitis. [facility]-[id number] Procedure Note Interface, Radiology Results Incoming - 05/17/2017 2:24 PM CDT EXAMINATION: IR LUMBAR PUNCTURE CLINICAL HISTORY: HEADACHE COMPARISON: None. FINDINGS: Informed consent was obtained prior to the exam. Total fluoroscopy time was 1 second. 2 images were stored during fluoroscopy although no images were obtained. The patient was prepped in a sterile fashion in the prone position. 1% Xylocaine was utilized for local anesthesia. Utilizing fluoroscopic guidance a 22-gauge spinal needle was placed into the subarachnoid space at the L3-4 level. The opening pressure was 16 cm. Approximately 36 mL of initially blood-tinged but later clear cerebrospinal fluid was withdrawn and sent to the laboratory for analysis. There were no complications. The primary surgeon was Dr. Nebwy. There were no assistants. The patient was sent to the recovery room after the procedure and then back to the floor. IMPRESSION: Successful fluoroscopic guided lumbar puncture to evaluate for headache and meningitis. [facility]-[id number] CT Stroke Brain Wo Contrast (05/17/2017 9:04 AM) Specimen Performing Laboratory [address] [address] Narrative EXAMINATION: CT STROKE BRAIN WO CONTRAST CLINICAL HISTORY: STROKE COMPARISON: NONE TECHNIQUE: Noncontrast enhanced images of the brain were obtained from the skull base to the vertex. Both soft tissue and bone reconstruction algorithms were performed. CT scans are performed using radiation dose reduction techniques.Technical factors are evaluated and adjusted to ensure appropriate moderation of exposure.Automated dose management technology is applied to adjust radiation exposure while achieving a diagnostic quality image. DOSE (DLP):1157.60 mGy.cm FINDINGS: The ventricles, sulci and CSF-containing spaces are normal size and configuration. The fajardo-white matter interface is within normal limits. There is no evidence of mass, hemorrhage or extraaxial fluid collection.There is no evidence of midline shift or brain herniation. There is no other macrostructural abnormalities within the cerebral hemispheres , basal ganglia, brainstem or cerebellum. The visualized bony structures are unremarkable. The paranasal sinuses are well aerated. Mastoid air cells and orbits are grossly unremarkable. IMPRESSION: Negative for acute intracranial abnormality, mass, hemorrhage, extra-axial fluid collection or hydrocephalus. Findings discussed withKEESHA Chanel on 05/17/2017 9:08 AM , and she verbalized understanding of the report. [facility]-[id number] Procedure Note Interface, Radiology Results Incoming - 05/17/2017 9:12 AM CDT EXAMINATION: CT STROKE BRAIN WO CONTRAST CLINICAL HISTORY: STROKE COMPARISON: NONE TECHNIQUE: Noncontrast enhanced images of the brain were obtained from the skull base to the vertex. Both soft tissue and bone reconstruction algorithms were performed. CT scans are performed using radiation dose reduction techniques. Technical factors are evaluated and adjusted to ensure appropriate moderation of exposure. Automated dose management technology is applied to adjust radiation exposure while achieving a diagnostic quality image. DOSE (DLP): 1157.60 mGy.cm FINDINGS: The ventricles, sulci and CSF-containing spaces are normal size and configuration. The fajardo-white matter interface is within normal limits. There is no evidence of mass, hemorrhage or extraaxial fluid collection. There is no evidence of midline shift or brain herniation. There is no other macrostructural abnormalities within the cerebral hemispheres , basal ganglia, brainstem or cerebellum. The visualized bony structures are unremarkable. The paranasal sinuses are well aerated. Mastoid air cells and orbits are grossly unremarkable. IMPRESSION: Negative for acute intracranial abnormality, mass, hemorrhage, extra-axial fluid collection or hydrocephalus. Findings discussed with KEESHA Chanel on 05/17/2017 9:08 AM , and she verbalized understanding of the report. [id number] CBC hemogram (05/15/2017 5:00 AM)Only the most recent of2 resultswithin the time period is included. Component Value Ref Range WBC 5.20 4.50 - 11.00 k/uL RBC 3.80 (L) 4.20 - 5.50 m/uL HGB 11.3 (L) 12.0 - 16.0 g/dL HCT 35.5 (L) 37.0 - 47.0 % MCV 93.4 82.0 - 100.0 fL MCH 29.7 27.0 - 34.0 pg MCHC 31.8 31.0 - 37.0 g/dL RDW - SD 45.9 37.0 - 55.0 fL MPV 10.8 8.8 - 13.2 fL Platelet count 210 150 - 400 k/uL Nucleated RBC 0.00 /100 WBC Specimen Performing Laboratory Blood [facility] DEPARTMENT OF PATHOLOGY AND GENOMIC MEDICINE [address] [place] [address] Thyroid stimulating hormone (05/15/2017 5:00 AM)Only the most recent of4 resultswithin the time period is included. Component Value Ref Range TSH 2.19 0.27 - 4.20 uIU/mL Specimen Performing Laboratory Plasma specimen [facility] DEPARTMENT OF PATHOLOGY AND [address] [address] T4, free (05/15/2017 5:00 AM)Only the most recent of3 resultswithin the time period is included. Component Value Ref Range T4, free 1.0 0.9 - 1.7 ng/dL Specimen Performing Laboratory Plasma specimen [facility] DEPARTMENT OF PATHOLOGY AND GENOMIC MEDICINE [address] [place] [address] Phosphorus level (05/15/2017 5:00 AM)Only the most recent of4 resultswithin the time period is included. Component Value Ref Range Phosphorus 3.1 2.4 - 4.5 mg/dL Specimen Performing Laboratory Plasma specimen [facility] DEPARTMENT OF PATHOLOGY AND [facility] [address] [place] [address] Lipid panel (05/15/2017 5:00 AM) Component Value Ref Range Cholesterol 240 (H) <200 mg/dL Triglycerides 184 (H) <150 mg/dL HDL cholesterol 72 >40 mg/dL LDL cholesterol 154 (H)Comment: Result obtained by direct <100 mg/dL LDL measurement Lipid panel interpretation SeeBelow Comment: Total Cholesterol (mg/dL) <200 Desirable [phone]-yxcp >=240High Triglycerides (mg/dL) <150 Normal [id number]-mrez 200-499High >=500Very high HDL Cholesterol (mg/dL) <40Low (male) <40Low (female) LDL Cholesterol (mg/dL) <100 Optimal 100-129Near or above optimal [phone]-awzv 160-189High >=190Very high Risk Catergories that modify LDL goals. Risk CatergoriesLDL goal (mg/dL) CHD and CHD risk equivalent<100 (10-year risk >20%) Multiple (2+) risk factors <130 (10-year risk=<20%) 0-1 risk factors <160 (<10-year risk) Defining levels of lipids in metabolic syndrome Triglycerides>=150 mg/dL HDL Cholesterol Men<40 mg/dL Women<40 mg/dL Non-HDL cholesterol is a second target for therapy in persons with high triglycerides (>=200 mg/dL) Specimen Performing Laboratory Plasma specimen [facility] DEPARTMENT OF PATHOLOGY AND GENOMIC MEDICINE [address] [place] [address] Hemoglobin A1c (05/14/2017 5:15 PM)Only the most recent of2 resultswithin the time period is included. Component Value Ref Range Hemoglobin A1C 5.4 4.0 - 5.6 % Comment: HbA1c cutoffs for diagnosing diabetes: 4.0% - 5.6%=normal 5.7% - 6.4%=increased risk for diabetes (prediabetes) >=6.5%=diabetes Goals for glycemic control (ADA 2016) < 7.0%Target for non adults with diabetes. More or less stringent targets may be appropriate for individual patients. <7.5% Target for Children and adolescents with type 1 diabetes. Specimen Performing Laboratory [facility] DEPARTMENT OF PATHOLOGY AND GENOMIC MEDICINE [address] [place] [address] Urinalysis screen and microscopy, with reflex to culture (05/14/2017 3:38 PM) Only the most recent of4 resultswithin the time period is included. Component Value Ref Range Specimen site Clean catch Color, UA Straw Appearance, UA Clear Specific gravity, UA 1.008 1.001 - 1.035 pH, UA 6.0 5.0 - 8.5 Protein, UA Negative Negative Glucose, UA Negative Negative Ketones, UA Negative Negative Bilirubin, UA Negative Negative Blood, UA Negative Negative Nitrite, UA Negative Negative Urobilinogen, UA <2.0 <2.0 Leukocyte esterase, UA Negative Negative Epithelial cells, UA 3 /HPF WBC, UA <1 0 - 4 /HPF RBC, UA None seen 0 - 5 /HPF Bacteria, UA Few None seen Yeast, UA None seen Yeast with pseudohyphae, UA None seen Specimen Performing Laboratory Urine [facility] DEPARTMENT PATHOLOGY AND [facility] [address] [place] [address] hCG qualitative, urine screen (05/14/2017 3:38 PM) Component Value Ref Range hCG qualitative, urine NegativeComment: Sensitivity of HCG test: 25 mIU/mL Specimen Performing Laboratory Urine [facility] DEPARTMENT PATHOLOGY AND [facility] [address] [place] [address] Urine culture (05/14/2017 3:38 PM)Only the most recent of5 resultswithin the time period is included. Component Value Ref Range Urine culture SEE COMMENTComment: Bacteriuria screen negative. Specimen Performing Laboratory Urine [facility] DEPARTMENT OF PATHOLOGY AND [facility] [address] [place] [address] Valproic acid level (05/14/2017 3:34 PM) Component Value Ref Range Valproic acid 33.6 (L) 50.0 - 100.0 ug/mL Comment: Therapeutic Range: 50 - 100 ug/mL Specimen Performing Laboratory Plasma specimen [facility] DEPARTMENT OF PATHOLOGY AND [facility] [address] [place] [address] PV duplex venous upper extremity (05/14/2017 3:00 PM) Specimen [facility] [address] [place], [place] [id number] Narrative Vascular Ultrasound Laboratory Upper Extremity Venous Report [address] [place] [address] Pat.Name:LUIS FELIPE MCCRARY.ID:[id number] .Date: 05/14/2017Refer.:PHYSICIAN, EMERGENCY, MD Exam Time: 2:39:00 PMStudy Type:UE Venous DOBAge:1980,37YSex: FEMALE Sonogrphr: Bandar [place] RVT Room:ER TapeVol: VB, CPT - 4: 66369 Echo Event ID:[id number] Order ID:[id number] Reason for Study:Right upper extremity edema and pain s/p DHE infusion Race:C SUMMARY: DUPLEX SCAN OBSERVATIONS Right Left IJNormal SubclavianNormal Normal AxillaryNormal BrachialNormal BasilicNormal CephalicObstructed RIGHT: The upper arm cephalic vein is non-compressible with echogenic material within the lumen; color flow and Doppler signals are absent. There is normal compressibility and no evidence of echogenic material noted within the lumen of the remaining visualized veins. PRELIMINARY FINDINGS 1. The upper arm cephalic vein is obstructed Verbal preliminary results given to Dr. Leyva @ [facility] PHYSICIAN INTERPRETATION 1.Venous examination of the right upper extremity, neck and left subclavian vein demonstratesthrombosis right cephalic vein Signed 05/14/2017 03:42 PM Louis Kaba MD Procedure Note Interface, Radiology Results In - 05/14/2017 3:43 PM CDT Vascular Ultrasound Laboratory Upper Extremity Venous Report [address] [place] [address] Pat.Name: LUIS FELIPE MCCRARY Pat.ID: [id number] .Date: 05/14/2017 Refer.MD: PHYSICIAN, EMERGENCY, MD Exam Time: 2:39:00 PM Study Type:UE Venous Age: 2 1980,37Y Sex: FEMALE Sonogrphr: GLENN WangT Room: ER Tape Vol: VB, CPT - 4: 64942 Echo Event ID:[id number] Order ID: [id number] Reason for Study:Right upper extremity edema and pain s/p DHE infusion Race: C SUMMARY: DUPLEX SCAN OBSERVATIONS Right Left IJ Normal Subclavian Normal Normal Axillary Normal Brachial Normal Basilic Normal Cephalic Obstructed RIGHT: The upper arm cephalic vein is non-compressible with echogenic material within the lumen; color flow and Doppler signals are absent. There is normal compressibility and no evidence of echogenic material noted within the lumen of the remaining visualized veins. PRELIMINARY FINDINGS 1. The upper arm cephalic vein is obstructed Verbal preliminary results given to Dr. Leyva @ 1500 PHYSICIAN INTERPRETATION 1. Venous examination of the right upper extremity, neck and left subclavian vein demonstrates thrombosis right cephalic vein Signed 05/14/2017 03:42 PM Louis Kaba MD CT Abdomen Pelvis W Contrast (04/29/2017 12:25 PM)Only the most recent of2 resultswithin the time period is included. Specimen Performing Laboratory [facility] [address] [place] [id number] Narrative EXAMINATION:CT ABDOMEN PELVIS W CONTRAST CLINICAL HISTORY:R10.84 Generalized abdominal pain, ABDOMINAL PAIN TECHNIQUE: Multiple axial images of the abdomen and pelvis were obtained following intravenous administration of iodinated contrast. Sagittal and coronal computerized reformatted images were also obtained. CT scans are performed using radiation dose reduction techniques. Technical factors are evaluated and adjusted to ensure appropriate moderation of exposure. Automated dose management technology is applied to adjust radiation exposure while achieving a diagnostic quality image. COMPARISON:06/28/2016 IMPRESSION: No significant CT abnormality. A few small mesenteric lymph nodes are seen which may suggest a low-grade enteritis. Otherwise unremarkable as detailed below. Clear lung bases. Cholecystectomy. Liver, spleen, pancreas, both adrenal glands and both kidneys are unremarkable. No hydronephrosis or hydroureter. Urinary bladder is unremarkable. Tiny hiatal hernia. Stomach otherwise unremarkable. Small bowel is normal, unobstructed. Administered oral contrast has reached the cecum. Colon is unremarkable. No enlarged lymph nodes by size criteria, no free fluid. Abdominal aorta is unremarkable. Osseous structures are intact. [facility]-[id number] Procedure Note Interface, Radiology Results Incoming - 04/29/2017 12:32 PM CDT EXAMINATION: CT ABDOMEN PELVIS W CONTRAST CLINICAL HISTORY: R10.84 Generalized abdominal pain, ABDOMINAL PAIN TECHNIQUE: Multiple axial images of the abdomen and pelvis were obtained following intravenous administration of iodinated contrast. Sagittal and coronal computerized reformatted images were also obtained. CT scans are performed using radiation dose reduction techniques. Technical factors are evaluated and adjusted to ensure appropriate moderation of exposure. Automated dose management technology is applied to adjust radiation exposure while achieving a diagnostic quality image. COMPARISON: 06/28/2016 IMPRESSION: No significant CT abnormality. A few small mesenteric lymph nodes are seen which may suggest a low-grade enteritis. Otherwise unremarkable as detailed below. Clear lung bases. Cholecystectomy. Liver, spleen, pancreas, both adrenal glands and both kidneys are unremarkable. No hydronephrosis or hydroureter. Urinary bladder is unremarkable. Tiny hiatal hernia. Stomach otherwise unremarkable. Small bowel is normal, unobstructed. Administered oral contrast has reached the cecum. Colon is unremarkable. No enlarged lymph nodes by size criteria, no free fluid. Abdominal aorta is unremarkable. Osseous structures are intact. [facility]-[id number] Lipase level (04/14/2017 11:23 AM)Only the most recent of4 resultswithin the time period is included. Component Value Ref Range Lipase 20 7 - 60 U/L Specimen Performing Laboratory [facility] Narrative FASTING:NO FASTING: NO Amylase level (04/14/2017 11:23 AM)Only the most recent of4 resultswithin the time period is included. Component Value Ref Range Amylase 56 21 - 101 U/L Specimen Performing Laboratory [facility] Narrative FASTING:NO FASTING: NO Comprehensive metabolic panel (04/14/2017 11:23 AM)Only the most recent of7 resultswithin the time period is included. Component Value Ref Range Glucose 115 (H) 65 - 99 mg/dL Comment: Fasting reference interval For someone without known diabetes, a glucose value between 100 and 125 mg/dL is consistent with prediabetes and should be confirmed with a follow-up test. BUN, whole blood 9 7 - 25 mg/dL Creatinine 0.82 0.50 - 1.10 mg/dL EGFR Non-Afr. Iranian 92 > OR=60 mL/min/1.73m2 EGFR 107 > OR=60 mL/min/1.73m2 BUN/creatinine ratio NOT APPLICABLE 6 (calc) Sodium 139 135 - 146 mmol/L Potassium 4.7 3.5 - 5.3 mmol/L Chloride 102 98 - 110 mmol/L CO2 30 20 - 31 mmol/L Calcium 9.1 8.6 - 10.2 mg/dL Protein 6.5 6.1 - 8.1 g/dL Albumin, S 3.9 3.6 - 5.1 g/dL Globulin, total 2.6 1.9 - 3.7 g/dL (calc) Albumin/globulin ratio 1.5 1.0 - 2.5 (calc) Total bilirubin 0.2 0.2 - 1.2 mg/dL Alkaline phosphatase 62 33 - 115 U/L AST 11 10 - 30 U/L ALT 8 6 - 29 U/L Specimen Performing Laboratory [facility] Narrative FASTING:NO FASTING: NO HLA Typing for Celiac Disease (04/06/2017 11:52 AM) Component Value Ref Range Interpretation see note Comment: The patient does not have the HLA-DQ variants associated with celiac disease. More than 97% of celiac patients carry either HLA-DQ2(DQA1*05/DQB1*02) or HLA-DQ8(DQA1*03/DQB1*0302) or both. Genetic counseling as needed. HLA DQ2 Negative HLA DQ8 Negative HLA variants detected: HLA DQA1 1 HLA DQA1 1 HLA DQB1 501 HLA DQB1 604 Reviewed by see note Comment: Steve Galarza, Ph.D., [facility] Director, Molecular Genetics Typing performed by PCR and hybridization with sequence specific oligonucleotide probes (SSO) using the FDA-cleared LABType(R) SSO Kit. Specimen Performing Laboratory [facility] Narrative FASTING:NO FASTING: NO LISY SCREEN W IFA W REFLEX TO TITER (03/16/2017 9:07 AM) Component Value Ref Range LISY screen NEGATIVE NEGATIVE Comment: LISY IFA is a first line screen for detecting the presence of up to approximately 150 autoantibodies in various autoimmune diseases. A negative LISY IFA result suggests LISY-associated autoimmune diseases are not present at this time. Visit Physician FAQs for interpretation of all antibodies in the [place], prevalence, and association with diseases at http://education.BitMethod/ faq/WGY471 Specimen Performing Laboratory [facility] Narrative FASTING:YES FASTING: YES TEST AUTHORIZATION (03/16/2017 9:07 AM) Component Value Ref Range TEST(S) ORDERED ON REQUISITION CELIAC DISEASE COMPREHENSIVE TEST CODE: 90788QDBP CLIENT CONTACT: JULIANA JIN REPORT ALWAYS MESSAGE SIGNATURE Comment: The laboratory testing on this patient was verbally requested or confirmed by the ordering physician or his or her authorized it sales representative after contact with an employee of [employer]. Federal regulations require that we maintain on file written authorization for all laboratory testing.Accordingly we are asking that the ordering physician or his or her authorized it sales representative sign a copy of this report and promptly return it to the auto claim representative. Signature: (Always message) Comment: Please fax this signed form to [phone]. Please do not attempt to return this document by other methods. Documents will not be viewed by a it sales representative. Please do not use this fax number for other service requests. Specimen Performing Laboratory [facility] Narrative FASTING:YES FASTING: YES SS-B antibody (03/16/2017 9:07 AM)Only the most recent of2 resultswithin the time period is included. Component Value Ref Range Sjogren's SS-B antibody <1.0 NEG <1.0 NEG AI Specimen Performing Laboratory [facility] Narrative FASTING:YES FASTING: YES SS-A antibody (03/16/2017 9:07 AM)Only the most recent of2 resultswithin the time period is included. Component Value Ref Range Sjogren's SS-A antibody <1.0 NEG <1.0 NEG AI Specimen Performing Laboratory [facility] Narrative FASTING:YES FASTING: YES Mayi-1 antibody (03/16/2017 9:07 AM)Only the most recent of2 resultswithin the time period is included. Component Value Ref Range Mayi-1 antibody <1.0 NEG <1.0 NEG AI Specimen Performing Laboratory [facility] Narrative FASTING:YES FASTING: YES Acetylcholine receptor binding Ab (03/16/2017 9:07 AM) Component Value Ref Range Acetylcholine receptor binding Ab <0.30 nmol/L Comment: Reference Ranges for Acetylcholine Receptor Binding Antibody: Negative: < or=0.30 nmol/L Equivocal:0.31-0.49 nmol/L Positive: > or=0.50 nmol/L Specimen Performing Laboratory [facility] Narrative FASTING:YES FASTING: YES Celiac disease panel (03/16/2017 9:07 AM) Component Value Ref Range Interpretation see note Comment: No serological evidence for celiac disease is present. Consider IgA deficiency. Tissue transglutaminase Ab, IgA 1 <4 U/mL Comment: Value Interpretation <4 U/mL: No Antibody Detected >or=4 U/mL: Antibody Detected IgA 47 (L) 81 - 463 mg/dL Specimen Performing Laboratory [facility] Narrative FASTING:YES FASTING: YES Tissue transglutaminase Ab, IgG (03/16/2017 9:07 AM) Component Value Ref Range Tissue transglutaminase Ab, IgG 3 <6 U/mL Comment: Value Interpretation <6 U/mL: No Antibody Detected >or=6 U/mL: Antibody Detected Specimen Performing Laboratory [facility] Narrative FASTING:YES FASTING: YES Aldolase, serum (03/16/2017 9:07 AM) Component Value Ref Range Aldolase 2.9 < OR=8.1 U/L Specimen Performing Laboratory [facility] Narrative FASTING:YES FASTING: YES Vitamin D 25 hydroxy level (03/16/2017 9:07 AM) Component Value Ref Range Vitamin D, 25-hydroxy 23 (L) 30 - 100 ng/mL Comment: Vitamin D Status 25-OH Vitamin D: Deficiency:<20 ng/mL Insufficiency: 20 - 29 ng/mL Optimal: > or=30 ng/mL For 25-OH Vitamin D testing on patients on D2-supplementation and patients for whom quantitation of D2 and D3 fractions is required, the QuestAssureD(TM) 25-OH VIT D, (D2,D3), LC/MS/MS is recommended: order code 09322 (patients >2yrs). For more information on this test, go to: http://education.Gluster/faq/FRG511 (This link is being provided for informational/educational purposes only.) Specimen Performing Laboratory [facility] Narrative FASTING:YES FASTING: YES Urinalysis, automated with microscopy (03/16/2017 9:07 AM) Component Value Ref Range Color, UA YELLOW YELLOW Appearance CLEAR CLEAR Specific gravity, urine 1.015 1.001 - 1.035 pH, urine 6.0 5.0 - 8.0 Glucose, urine NEGATIVE NEGATIVE Bilirubin, UA NEGATIVE NEGATIVE Ketones, UA NEGATIVE NEGATIVE Occult blood, urine NEGATIVE NEGATIVE Protein, UA NEGATIVE NEGATIVE Nitrite, UA NEGATIVE NEGATIVE Leukocyte esterase, UA NEGATIVE NEGATIVE WBC, UA NONE SEEN < OR=5 /HPF RBC, UA NONE SEEN < OR=2 /HPF Squamous epithelial cells, UA 0-5 < OR=5 /HPF Bacteria, UA NONE SEEN NONE SEEN /HPF Hyaline casts, UA NONE SEEN NONE SEEN /LPF Specimen Performing Laboratory [facility] Narrative FASTING:YES FASTING: YES Angiotensin converting enzyme (03/16/2017 9:07 AM) Component Value Ref Range Angiotensin converting enzyme 53 9 - 67 U/L Specimen Performing Laboratory [facility] Narrative FASTING:YES FASTING: YES Complement activity, total (03/16/2017 9:07 AM) Component Value Ref Range Complement activity, total >60 (H) 31 - 60 U/mL Specimen Performing Laboratory [facility] Narrative FASTING:YES FASTING: YES C3 complement component (03/16/2017 9:07 AM)Only the most recent of2 resultswithin the time period is included. Component Value Ref Range C3 complement 164 83 - 193 mg/dL Specimen Performing Laboratory [facility] Narrative FASTING:YES FASTING: YES C4 complement component (03/16/2017 9:07 AM)Only the most recent of2 resultswithin the time period is included. Component Value Ref Range C4 complement 30 15 - 57 mg/dL Specimen Performing Laboratory [facility] Narrative FASTING:YES FASTING: YES C-reactive protein (03/16/2017 9:07 AM)Only the most recent of2 resultswithin the time period is included. Component Value Ref Range CRP 8.2 (H) <8.0 mg/L Specimen Performing Laboratory [facility] Narrative FASTING:YES FASTING: YES Parathyroid hormone (03/16/2017 9:07 AM) Component Value Ref Range PTH 66 (H) 14 - 64 pg/mL Comment: Interpretive GuideIntact PTH Calcium ------- Normal ParathyroidNormal Normal HypoparathyroidismLow or Low NormalLow Hyperparathyroidism PrimaryNormal or High High SecondaryHigh Normal or Low Tertiary High High Non-Parathyroid HypercalcemiaLow or Low NormalHigh Specimen Performing Laboratory [facility] Narrative FASTING:YES FASTING: YES Creatine kinase, total (CPK) (03/16/2017 9:07 AM)Only the most recent of5 resultswithin the time period is included. Component Value Ref Range Creatine kinase 82 29 - 143 U/L Specimen Performing Laboratory [facility] Narrative FASTING:YES FASTING: YES Surgical pathology request (03/11/2017 4:43 PM)Only the most recent of3 resultswithin the time period is included. Component Value Ref Range Surgical pathology report See link below for PDF Lab Report Result status This is Final Report to [id number] Specimen Performing Laboratory [facility] DEPARTMENT OF PATHOLOGY AND GENOMIC MEDICINE [address] [place] [id number] MRI Abdomen W Wo Contrast (03/02/2017 8:20 AM)Only the most recent of2 resultswithin the time period is included. Specimen Per[facility] [address] [place] [id number] Narrative EXAMINATION:MRI ABDOMEN W WO CONTRAST CLINICAL HISTORY: 37 years 1980R93.2 Abnormal findings on diagnostic imaging of liver and biliary tract, 2 lesions of the liver- rule out mass vs hemamgioma COMPARISON:01/06/2017, 07/06/2016 TECHNIQUE: Multiplanar, multisequence MRI of the upper abdomen with and without intravenous gadolinium. FINDINGS: 1.Liver is normal in contour and signal intensity. There are no suspicious hepatic lesions identified. There is no MRI correlate identified to explain the echogenic regions on prior ultrasound, therefore may have been artifactual. Question of a 7 mm hypovascular focus in the right lobe of the liver at the dome, probably also artifactual. 2.The gallbladder is absent. There is no biliary dilatation. 3.The spleen, adrenal glands, pancreas and kidneys are normal in appearance. 4.The abdominal aorta is nonaneurysmal. The portal vein is patent. There is no abdominal ascites. No abdominal adenopathy. 5.No focal marrow replacing abnormality. IMPRESSION: 1.No suspicious hepatic lesion. 2.Status post cholecystectomy. 3.Additional findings as above. [facility]-[id number] Procedure Note [facility], Radiology Results Incoming - 03/02/2017 8:51 AM CHRISTIAN SCIENCE PRACTITIONER EXAMINATION: MRI ABDOMEN W WO CONTRAST CLINICAL HISTORY: 37 years 1980 R93.2 Abnormal findings on diagnostic imaging of liver and biliary tract, 2 lesions of the liver- rule out mass vs hemamgioma COMPARISON: 01/06/2017, 07/06/2016 TECHNIQUE: Multiplanar, multisequence MRI of the upper abdomen with and without intravenous gadolinium. FINDINGS: 1. Liver is normal in contour and signal intensity. There are no suspicious hepatic lesions identified. There is no MRI correlate identified to explain the echogenic regions on prior ultrasound, therefore may have been artifactual. Question of a 7 mm hypovascular focus in the right lobe of the liver at the dome, probably also artifactual. 2. The gallbladder is absent. There is no biliary dilatation. 3. The spleen, adrenal glands, pancreas and kidneys are normal in appearance. 4. The abdominal aorta is nonaneurysmal. The portal vein is patent. There is no abdominal ascites. No abdominal adenopathy. 5. No focal marrow replacing abnormality. IMPRESSION: 1. No suspicious hepatic lesion. 2. Status post cholecystectomy. 3. Additional findings as above. [facility]-[id number] Total iron binding capacity (02/24/2017 1:15 PM) Component Value Ref Range Iron level 81 40 - 190 mcg/dL Iron binding capacity 577 (H) 250 - 450 mcg/dL (calc) Iron saturation 14 11 - 50 % (calc) Specimen Performing Laboratory [facility] Narrative FASTING:NO FASTING: NO Reticulocyte count, automated (02/24/2017 1:15 PM) Component Value Ref Range Retic count, manual 1.6 % Retic absolute, auto 65,280 20,000 - 80,000 cells/uL Specimen Performing Laboratory [facility] Narrative FASTING:NO FASTING: NO Ferritin level (02/24/2017 1:15 PM) Component Value Ref Range Ferritin level 17 10 - 154 ng/mL Specimen Performing Laboratory [facility] Narrative FASTING:NO FASTING: NO Echocardiogram complete w contrast and 3D if needed (01/07/2017 3:45 PM) Specimen Performing Laboratory [facility] [address] [place] [address] Narrative Echocardiography Report [address] [place] [address] Pat.Name:LUIS FELIPE MCCRARY.ID:[id number] .Date: 01/07/2017 Refer.MD:ELOISE NO MD Exam Time: 4:27:00 PMStudy Type:Routine Echo Height:71inWeight:242lb BSA: 2.29 m2 DOBAge:1980,36Y Sex: FEMALEBP:119/63 HR:90 bpmSonogrphr: KRUNAL Wheeler, [facility] Pat. Stat.:Inpatient Room:A836 Study Status:Final Echo Event ID:[id number] Order ID:[id number] Reason for Study:Chest Pain Procedures:2D Echo, Colorflow Doppler, Portable Race:C SUMMARY: Normal biventricular function. FINDINGS: LV: LV size is normal. LV EF is normal. Overall wall motion is normal.Estimated EF is 60-64%. RV: RV size is normal. RV systolic function is normal. LA: LA size is normal. RA: RA size is normal. AO: Aortic root diameter is normal. CATINA: No pericardial effusion. AV: No structural AV abnormalities noted. MV: No structural MV abnormalities noted. A trace of mitral regurgitation. PV: Pulmonic valve not well seen. A trace of pulmonic regurgitation. TV: No structural TV abnormalities noted. Watson: LV relaxation is normal. LV filling pressure is normal. Other:Insufficient TR jet to estimate PA systolic pressure. MEASUREMENTS: 2D Parasternal Long [place]es LVOT 2.1 cmIVSd 0.9 cm LA Ds2.8 cmLVPWd0.9 cm Ao Rtd 2.9 cmIndex 1.3 cm/m LV Asbl871.2 g(87-129) LVIDd4.7 cmIndex 2 cm/m LVM Index 64.3 g/m2 LVIDs3.1 cmRWT0.4 LV%fs 33.1 % LA Sng Plane LA Area 14.6 cm2(8.8-23.4) LA Vol 35 ml Index15.3 ml/m LA LngAx 5.3 cm DOPPLER LVOT For Flow LVOT Area3.5 cm2 LVOT SV 66 ml YGPAgqDsf218.6 cm/sHR91.8 bpm LVOTpkPG 4 mmHgLVOT CO6.1 l/min LVOTmnPG 2.3 mmHgLVOT CI 2.6 l/m/m2 LVOT TVI19 cm Signed 01/07/2017 10:41 PM Yariel Middleton M.D. Procedure Note Interface, Radiology Results In - 01/07/2017 10:[address] [facility] Echocardiography Report [address] [place] [address] Pat.Name: LUIS FELIPE MCCRARY Pat.ID: [id number] .Date: 01/07/2017 Refer.MD: ELOISE NO MD Exam Time: 4:27:00 PM Study Type:Routine Echo Height: 71in Weight: 242lb BSA: 2.29 m2 Age: 1 1980,36Y Sex: FEMALE BP: 119/63 HR: 90 bpm Sonogrphr: KRUNAL Wheeler, [facility] Pat. Stat.:Inpatient Room: [facility] Study Status:Final Echo Event ID:[id number] Order ID: [id number] Reason for Study:Chest Pain Procedures:2D Echo, Colorflow Doppler, Portable Race: C SUMMARY: Normal biventricular function. FINDINGS: LV: LV size is normal. LV EF is normal. Overall wall motion is normal. Estimated EF is 60-64%. RV: RV size is normal. RV systolic function is normal. LA: LA size is normal. RA: RA size is normal. AO: Aortic root diameter is normal. CATINA: No pericardial effusion. AV: No structural AV abnormalities noted. MV: No structural MV abnormalities noted. A trace of mitral regurgitation. PV: Pulmonic valve not well seen. A trace of pulmonic regurgitation. TV: No structural TV abnormalities noted. Watson: LV relaxation is normal. LV filling pressure is normal. Other: Insufficient TR jet to estimate PA systolic pressure. MEASUREMENTS: 2D Parasternal Long [place]es LVOT 2.1 cm IVSd 0.9 cm LA Ds 2.8 cm LVPWd 0.9 cm Ao Rtd 2.9 cm Index 1.3 cm/m LV Mass 147.2 g (87-129) LVIDd 4.7 cm Index 2 cm/m LVM Index 64.3 g/m2 LVIDs 3.1 cm RWT 0.4 LV%fs 33.1 % LA Sng Plane LA Area 14.6 cm2 (8.8-23.4) LA Vol 35 ml Index 15.3 ml/m LA LngAx 5.3 cm DOPPLER LVOT For Flow LVOT Area 3.5 cm2 LVOT SV 66 ml LVOTpkVel 100.6 cm/s HR 91.8 bpm LVOTpkPG 4 mmHg LVOT CO 6.1 l/min LVOTmnPG 2.3 mmHg LVOT CI 2.6 l/m/m2 LVOT TVI 19 cm Signed 01/07/2017 10:41 PM Yariel Middleton M.D. US Abdomen Complete (01/06/2017 4:29 PM)Only the most recent of2 resultswithin the time period is included. Specimen Performing Laboratory [facility] [address] [place] [address] Narrative EXAM: US ABDOMEN COMPLETE CLINICAL DATA:ABDOMINAL PAIN COMPARISON: MRI July 06, 2016 IMPRESSION: LIVER:2 echogenic areas are seen in the liver. Left lobe lesion measures 1.3 cm. Right lobe lesion measures 8 mm. They may be related to small hemangiomas. These are not clearly identified on the previous MRI examination. They may be artifactual. A follow-up MRI is recommended for further evaluation. GALLBLADDER:Absent. CBD:4 mm, within normal limits. MPV:Doppler evaluation of the portal vein demonstrates normal hepatopetal flow. 9 mm in diameter. PANCREAS:The visualized portions of the pancreas are within normal limits. SPLEEN:The spleen is homogeneous and not enlarged measuring 10.9 cm in length. KIDNEYS:Survey of kidneys demonstrates no hydronephrosis.The right kidney measures 11.3 cm in length and the left kidney measures9.7 cm in length. AORTA:The visualized upper abdominal aorta demonstrates no evidence of ectasia or aneurysm. IVC:The visualized portions of the inferior vena cava are unremarkable. ASCITES: No ascites or abnormal fluid collections are seen. PLEURAL EFFUSION:There are no pleural effusions. [facility]-[id number] Procedure Note [facility], Radiology Results Incoming - 01/06/2017 4:42 PM CHRISTIAN SCIENCE PRACTITIONER EXAM: US ABDOMEN COMPLETE CLINICAL DATA: ABDOMINAL PAIN COMPARISON: MRI July 06, 2016 IMPRESSION: LIVER: 2 echogenic areas are seen in the liver. Left lobe lesion measures 1.3 cm. Right lobe lesion measures 8 mm. They may be related to small hemangiomas. These are not clearly identified on the previous MRI examination. They may be artifactual. A follow-up MRI is recommended for further evaluation. GALLBLADDER: Absent. CBD: 4 mm, within normal limits. MPV: Doppler evaluation of the portal vein demonstrates normal hepatopetal flow. 9 mm in diameter. PANCREAS: The visualized portions of the pancreas are within normal limits. SPLEEN: The spleen is homogeneous and not enlarged measuring 10.9 cm in length. KIDNEYS: Survey of kidneys demonstrates no hydronephrosis. The right kidney measures 11.3 cm in length and the left kidney measures 9.7 cm in length. AORTA: The visualized upper abdominal aorta demonstrates no evidence of ectasia or aneurysm. IVC: The visualized portions of the inferior vena cava are unremarkable. ASCITES: No ascites or abnormal fluid collections are seen. PLEURAL EFFUSION: There are no pleural effusions. [facility]-[id number] CV stress test (01/06/2017 9:07 AM) Component Value Ref Range Resting HR 83 Resting BP 124 Peak MET Achieved 1.0 Protocol Name REGADENO Time in Exercise Phase 00:01:00 Max Systolic BP 133 Max Diastolic BP 70 Max Heart Rate 118 Max Predicted Heart Rate 185 Target HR Formula (220 - Age)*100% Test Indication chest pain Arrhy During Ex ECG Interp Before EX ECG Interp During Ex Ex Summary Comment Overall HR Response to Exercise Overall BP Response To Exercise Reason for Termination Stress Test Impression -Waveform interpreted in report associated with image study. No interpretation is provided as part of this Stress ECG report.-Electronically Signed By Pranav BOLDEN, Cait Loco ([id number]), editor greeting card Danika Rose ([id number]) on 01/06/2017 3:26:37 PM Specimen Performing Laboratory [facility] MUSE [address] [place] [address] CV myocardial perfusion (01/06/2017 9:07 AM) Specimen Performing Laboratory [facility] [address] [place] [address] Narrative Nuclear Cardiology and Cardiac CT [address] [place] [address] Myocardial Perfusion Imaging Report Stress ECG tracings are available in MUSE, EPIC and CV Web All ECG interpretations are included in this report Pat.Name:LUIS FELIPE MCCRARY Pat.ID:[id number] St.Date: 01/06/2017Refer.MD:MARIO VELAZQUEZ MD Exam Time: 8:25:00 AM Study Type:Myocardial Perfusion Imaging Height:70inWeight:242lb BSA: 2.27 m2 DOBAge:1980,36Y Sex: FEMALEBP:124/73 HR:82 bpmHCT: 37 % Nuclear Tech:RASHID BellT, DRY PLASTERER HELPER/ PALOMA Humphreys, [facility] Pat. Stat.:Outpatient Room:[id number] Event ID:[id number] Order ID:[id number] Reason for Study:Chest pain, unspecified* History / Clinical:DVT, Migraine, Appendectomy, Cholecystectomy, Thyroidectomy, Back Surgery, Obesity Procedures:Stress only Race: Risk Factors:Obesity Clinical Symptoms:Regadenoson Physical Exam:S1, S2 Surgery: Serum K+ Date,4.3/01/05/2017, Troponin I Date, 1)negative/01/01/2017 2)negative/01/05/2017 3)negative/01/06/2017, BUN/Creatinine Date,90.8/01/05/2017 Medications:None SUMMARY: SCINTIGRAPHIC RESULTS Perfusion Defect Size (% LV) 0 % Total 0 % Ischemia 0 % Scar Left Ventricular Perfusion Results There is normal tracer distribution throughout the myocardium during stress and prone imaging. Gated SPECT Results The post-stress left ventricular ejection fraction is 77 % with normal regional wall motion and left ventricular thickening.Left ventricular end-diastolic volume is 88 ml; end-systolic volume is20 ml. The left ventricle is of normal size at stress.The right ventricle is of normal size with normal wall motion. Conclusion Normal regadenoson Tc-99m tetrofosmin myocardial perfusion study. The left ventricular ejection fraction is normal. Comments Patients with a normal stress myocardial perfusion study have a low (< 1%) annual risk of cardiac or nonfatal myocardial infarction. Study Quality/Artifacts The study quality is good. Comparison to Previous Study None available. STRESS: Baseline Vital Signs:Intervention: Regadenoson 0.4mg/5ml IV over 10 seconds followed by radiotracer injection and 5ml saline flush ECG: Normal Sinus Rhythm HR:82 BP:124/73 Stress Test Results: Target HR: 157 Symptoms and Complications: Arrhythmias: None Terminated: As per Regadenoson protocol Symptoms:Chest tightness, Nausea, Leg and neck tingling Complications: None Conclusions: Normal heart rate response to pharmacological stress, Normal blood pressure response to pharmacological stress Stress ECG Interp: No ischemic ST segment change occurred with stress. Signed 01/06/2017 01:29 PM Cait Rock MD Procedure Note Interface, Radiology Results In - 01/06/2017 1:[address] [facility] Nuclear Cardiology and Cardiac CT [address] [address] Myocardial Perfusion Imaging Report Stress ECG tracings are available in [employer]), [employer] and [employer] All ECG interpretations are included in this report Pat.Name: LUIS FELIPE MCCRARY Pat.ID: [id number] St.Date: 01/06/2017 Refer.MD: MARIO VELAZQUEZ MD Exam Time: 8:25:00 AM Study Type:Myocardial Perfusion Imaging Height: 70in Weight: 242lb BSA: 2.27 m2 Age: 1 1980,36Y Sex: FEMALE BP: 124/73 HR: 82 bpm HCT: 37 % Nuclear Tech:RASHID BellT, DRY PLASTERER HELPER/ PALOMA Humphreys, ARRT Pat. Stat.:Outpatient Room: ED25 Nuclear Event ID:[id number] Order ID: [id number] Reason for Study:Chest pain, unspecified* History / Clinical:DVT, Migraine, Appendectomy, Cholecystectomy, Thyroidectomy, Back Surgery, Obesity Procedures:Stress only Race: Risk Factors:Obesity Clinical Symptoms:Regadenoson Physical Exam:S1, S2 Surgery: Serum K+ Date, 4.301/05/2017, Troponin I Date, 1)negative01/01/2017 2)negative01/05/2017 3)negative01/06/2017, BUN/Creatinine Date, 9/0.801/05/2017 Medications:None SUMMARY: SCINTIGRAPHIC RESULTS Perfusion Defect Size (% LV) 0 % Total 0 % Ischemia 0 % Scar Left Ventricular Perfusion Results There is normal tracer distribution throughout the myocardium during stress and prone imaging. Gated SPECT Results The post-stress left ventricular ejection fraction is 77 % with normal regional wall motion and left ventricular thickening. Left ventricular end-diastolic volume is 88 ml; end-systolic volume is 20 ml. The left ventricle is of normal size at stress. The right ventricle is of normal size with normal wall motion. Conclusion Normal regadenoson Tc-99m tetrofosmin myocardial perfusion study. The left ventricular ejection fraction is normal. Comments Patients with a normal stress myocardial perfusion study have a low (< 1%) annual risk of cardiac or nonfatal myocardial infarction. Study Quality/Artifacts The study quality is good. Comparison to Previous Study None available. STRESS: Baseline Vital Signs: Intervention: Regadenoson 0.4mg/5ml IV over 10 seconds followed by radiotracer injection and 5ml saline flush ECG: Normal Sinus Rhythm HR: 82 BP: 124/73 Stress Test Results: Target HR: 157 Symptoms and Complications: Arrhythmias: None Terminated: As per Regadenoson protocol Symptoms: Chest tightness, Nausea, Leg and neck tingling Complications: None Conclusions: Normal heart rate response to pharmacological stress, Normal blood pressure response to pharmacological stress Stress ECG Interp: No ischemic ST segment change occurred with stress. Signed 01/06/2017 01:29 PM Cait Rock MD CT Angiogram Pe Chest (01/05/2017 7:17 PM)Only the most recent of2 resultswithin the time period is included. Specimen Performing Laboratory [facility] [id number] [place] [address] ANGIOGRAM PE CHEST INDICATION:sob TECHNIQUE: Multidetector CT of the chest with attention to the pulmonary arteries was performed following the intravenous administration of iodinated contrast. Standard multiplanar reformatted images were performed.In addition, postprocessed 3D MIP images were also performed for CT angiography. CT imaging was performed with iterative reconstruction technique and/or automated exposure control to reduce radiation dose. COMPARISON:09/01/2016. FINDINGS: PULMONARY ARTERIES:The pulmonary arteries are diagnostically opacified without findings for acute pulmonary embolus. HEART AND GREAT ARTERIES:The heart is normal in size without pericardial effusion. The aorta and great vessels are unremarkable for phase of scanning. MEDIASTINUM AND CYRUS: No mass or hematoma is identified.No enlarged lymph nodes are seen.Trachea and central airways are patent. LUNGS:Aside from a few areas of minimal atelectasis, the lungs are clear. PLEURA: No pneumothorax or effusion. CHEST WALL:There are no acute osseous abnormalities. VISUALIZED ABDOMEN: No acute findings. IMPRESSION: No pulmonary embolism or acute pulmonary infiltrate. [facility]-[id number] Procedure Note Interface, Radiology Results Incoming - 01/05/2017 7:31 PM [facility] [employer]ACTITIONER CT ANGIOGRAM PE CHEST INDICATION: sob TECHNIQUE: Multidetector CT of the chest with attention to the pulmonary arteries was performed following the intravenous administration of iodinated contrast. Standard multiplanar reformatted images were performed. In addition, postprocessed 3D MIP images were also performed for CT angiography. CT imaging was performed with iterative reconstruction technique and/or automated exposure control to reduce radiation dose. COMPARISON: 09/01/2016. FINDINGS: PULMONARY ARTERIES: The pulmonary arteries are diagnostically opacified without findings for acute pulmonary embolus. HEART AND GREAT ARTERIES: The heart is normal in size without pericardial effusion. The aorta and great vessels are unremarkable for phase of scanning. MEDIASTINUM AND CYRUS: No mass or hematoma is identified. No enlarged lymph nodes are seen. Trachea and central airways are patent. LUNGS: Aside from a few areas of minimal atelectasis, the lungs are clear. PLEURA: No pneumothorax or effusion. CHEST WALL: There are no acute osseous abnormalities. VISUALIZED ABDOMEN: No acute findings. IMPRESSION: No pulmonary embolism or acute pulmonary infiltrate. [facility]-[id number] B natriuretic peptide (01/05/2017 5:10 PM)Only the most recent of2 resultswithin the time period is included. Component Value Ref Range BNP 5 0 - 100 pg/mL Specimen Performing Laboratory Blood [facility] DEPARTMENT OF PATHOLOGY AND GENOMIC MEDICINE [address] [place] [address] XR Chest 2 Vw (01/05/2017 1:02 PM) Specimen Performing Laboratory [facility] [address] [place] [address] Narrative EXAMINATION:XR CHEST 2 VW CLINICAL HISTORY:R06.02 Shortness of breath, SHORTNESS OF BREATH IMPRESSION: Normal chest. Heart and mediastinum are within normal limits. Lungs are clear. Regional skeleton is intact. No change from March 05, 2015 [facility]-[id number] Procedure Note Interface, Radiology Results Incoming - 01/05/2017 1:10 PM CHRISTIAN SCIENCE PRACTITIONER EXAMINATION: XR CHEST 2 VW CLINICAL HISTORY: R06.02 Shortness of breath, SHORTNESS OF BREATH IMPRESSION: Normal chest. Heart and mediastinum are within normal limits. Lungs are clear. Regional skeleton is intact. No change from March 05, 2015 [facility]-[id number] D-dimer (01/05/2017 12:02 PM) Component Value Ref Range D-dimer 0.37 <0.50 mcg/mL FEU Comment: The D-Dimer test is used frequently to exclude an acute PE or DVT. In patients with a low to moderate clinical risk assessment and a D-Dimer result <0.50 mcg/mL FEU, the likelihood of a PE or DVT is very low. However, a thromboembolic event should not be excluded solely on the basis of the D-Dimer level. Increased levels of D-Dimer are associated with a PE, DVT, DIC, malignancies, inflammation, sepsis, surgery, trauma, , and advancing patient age. [Saeed 2006 11:295(2):199-207] For additional information, please refer to: http://education.Gluster/faq/QCK581 (This link is being provided for informational/ educational purposes only) Specimen Performing Laboratory Blood [facility] Narrative FASTING:NO FASTING: NO CT Head Wo Contrast (01/01/2017 5:40 PM) Specimen Performing Laboratory [facility] [address] [place] [address] Narrative EXAMINATION:CT HEAD WO CONTRAST CLINICAL HISTORY:headache COMPARISON:MRI brain 03/14/2013; CT head 03/13/2013. TECHNIQUE: Noncontrast head CT performed using radiation dose reduction techniques.Technical factors are evaluated and adjusted to ensure appropriate moderation of exposure.Automated dose management technology is applied to adjust radiation exposure while achieving a diagnostic quality image. FINDINGS: No evidence of acute intracranial hemorrhage, mass, mass effect, midline shift , or acute infarct. Ventricles and sulci are normal in appearance for patient's age.Basal cisterns are clear. Calvarium is intact. Orbits are normal in appearance. Visualized paranasal sinuses are clear. Mastoid air cells are clear. IMPRESSION: 1. No CT evidence of acute intracranial abnormality. [id number] Procedure Note Interface, Radiology Results Incoming - 01/01/2017 5:47 PM CHRISTIAN SCIENCE PRACTITIONER EXAMINATION: CT HEAD WO CONTRAST CLINICAL HISTORY: headache COMPARISON: MRI brain 03/14/2013; CT head 03/13/2013. TECHNIQUE: Noncontrast head CT performed using radiation dose reduction techniques. Technical factors are evaluated and adjusted to ensure appropriate moderation of exposure. Automated dose management technology is applied to adjust radiation exposure while achieving a diagnostic quality image. FINDINGS: No evidence of acute intracranial hemorrhage, mass, mass effect, midline shift , or acute infarct. Ventricles and sulci are normal in appearance for patient's age. Basal cisterns are clear. Calvarium is intact. Orbits are normal in appearance. Visualized paranasal sinuses are clear. Mastoid air cells are clear. IMPRESSION: 1. No CT evidence of acute intracranial abnormality. [facility]-[id number] CT Renal Stone Protocol (01/01/2017 5:40 PM) Specimen Performing Laboratory [facility] [address] [place] [id number] Narrative EXAMINATION:CT RENAL STONE PROTOCOL CLINICAL HISTORY:right flank pain TECHNIQUE: Multiple axial images of the abdomen and pelvis were obtained without intravenous administration of iodinated contrast. Sagittal and coronal computerized reformatted images were also obtained. The lack of intravenous contrast reduces the sensitivity of detecting solid organ disease. COMPARISON:CT abdomen and pelvis dated 06/28/2016 FINDINGS: Lower chest: Patchy atelectasis in the lower lobes bilaterally. Abdomen: Limited evaluation of the solid organs in the absence of intravenous contrast. No focal liver mass can be visualized. Spleen, adrenal glands, and pancreas are normal. The gallbladder is absent without dilatation of the biliary tree. No evidence of a renal stone or hydronephrosis. The ureters are normal in caliber. No ureteral calculus is present. No ascites. No enlarged retroperitoneal or upper abdominal lymph nodes. Subcentimeter left periaortic lymph nodes are nonspecific. Abdominal aorta is normal in caliber. Stomach and duodenum are unremarkable. There is no evidence of a small bowel obstruction. The appendix is not visualized. Moderate amount of stool throughout the colon. No findings to suggest a colonic obstruction. Pelvis: No suspicious fluid in the pelvis. Uterus is not visualized and may be absent. No discrete adnexal mass. No inguinal or pelvic lymph nodes. IMPRESSION: No acute noncontrast abnormality. [facility]-[id number] Procedure Note Interface, Radiology Results Incoming - 01/01/2017 6:07 PM CHRISTIAN SCIENCE PRACTITIONER EXAMINATION: CT RENAL STONE PROTOCOL CLINICAL HISTORY: right flank pain TECHNIQUE: Multiple axial images of the abdomen and pelvis were obtained without intravenous administration of iodinated contrast. Sagittal and coronal computerized reformatted images were also obtained. The lack of intravenous contrast reduces the sensitivity of detecting solid organ disease. COMPARISON: CT abdomen and pelvis dated 06/28/2016 FINDINGS: Lower chest: Patchy atelectasis in the lower lobes bilaterally. Abdomen: Limited evaluation of the solid organs in the absence of intravenous contrast. No focal liver mass can be visualized. Spleen, adrenal glands, and pancreas are normal. The gallbladder is absent without dilatation of the biliary tree. No evidence of a renal stone or hydronephrosis. The ureters are normal in caliber. No ureteral calculus is present. No ascites. No enlarged retroperitoneal or upper abdominal lymph nodes. Subcentimeter left periaortic lymph nodes are nonspecific. Abdominal aorta is normal in caliber. Stomach and duodenum are unremarkable. There is no evidence of a small bowel obstruction. The appendix is not visualized. Moderate amount of stool throughout the colon. No findings to suggest a colonic obstruction. Pelvis: No suspicious fluid in the pelvis. Uterus is not visualized and may be absent. No discrete adnexal mass. No inguinal or pelvic lymph nodes. IMPRESSION: No acute noncontrast abnormality. [facility]-[id number] Hepatic function panel (01/01/2017 4:50 PM) Component Value Ref Range Albumin 3.3 (L) 3.5 - 5.0 g/dL Total bilirubin <0.2 0.0 - 1.2 mg/dL Bilirubin direct <0.2 0.0 - 0.3 mg/dL Alkaline phosphatase 69 35 - 104 U/L Protein 6.9 6.3 - 8.3 g/dL Comment: 4.6-7.0 g/dL 1 week 4.4-7.6 g/dL 7 months-1year5.1-7.3 g/dL 1-2 years5.6-7.5 g/dL >3 years6.0-8.0 g/dL 18-150 6.3-8.3 g/dL ALT 11 5 - 50 U/L AST 18 10 - 35 U/L Specimen Performing Laboratory Plasma specimen [facility] DEPARTMENT OF PATHOLOGY AND GENOMIC MEDICINE [address] [place] [address] Mammo Diagnostic w Cad Right (12/14/2016 10:40 AM) [facility] [address] [place] [address] Narrative EXAMINATION:MAMMO DIAGNOSTIC W CAD RIGHT See stereotactic breast biopsy report for right breast diagnostic mammogram after stereotactic biopsy. Impression: Successful stereotactic breast biopsy and clip placement. [facility]-[id number] Breast Specimen (12/14/2016 10:39 AM) Specimen Performing Laboratory [facility] [address] [place] [address] Narrative Specimen radiograph: Specimen radiograph does show the microcalcifications present. IMPRESSION: Successful specimen radiography. See stereotactic breast biopsy report of same day for further detail. Stereotactic Breast Biopsy Right (12/14/2016 10:39 AM) Specimen Performing Laboratory [facility] [address] [place] [address] Addenda Addendum by Brian Capps Jr., MD on 12/17/2016 10:30 AM ADDENDUM #1 Addendum report for pathology. Stereotactic biopsy for microcalcification reveals benign changes. No atypia or malignancy. Apocrine metaplasia noted. Reporting pathologist: Dr. Heike Saenz M.D. PhD 12/15/2016. See pathology report for further details. IMPRESSION: BI-RADS Category 2 benign findings. Annual mammography recommended Narrative PROCEDURE: STEREOTACTIC BREAST BIOPSY RIGHT CLINICAL HISTORY: The patient came in for stereotactic biopsy of right breast calcifications as previously recommended. CONSENT: Informed consent for stereotactic guided core needle biopsy/biopsies of the right breast(s) was obtained following a detailed discussion of the procedure, alternatives, risks, and complications including hemorrhage, infection, and clip migration. PROCEDURE: After a confirmatory pause for the biopsy team, and after obtaining informed consent, the patient was placed on the stereotactic table. Using stereotactic guidance and a vacuum-assisted needle, approximately 12 core samples were obtained through a single skin incision and a clip deployed marking the biopsy site. Specimen radiograph confirmed the presence of calcifications in multiple core samples.The core samples obtained were sent to pathology. Postprocedure mammogram obtained, not for diagnostic purposes but for clip identification, confirmed clip deployment and minimal postbiopsy changes. The patient tolerated the procedure and left the department in stable condition. IMPRESSION: Stereotactic guided core needle biopsy/biopsies of the right breast are complete.Final pathology report is pending. Addendum will follow. BI-RADS CATEGORY 0: INCOMPLETE. HISTOLOGY IS PENDING. [id number] US Renal (12/06/2016 4:02 PM) Specimen Performing Laboratory [facility] [address] [place] [address] Narrative EXAMINATION:US RENAL CLINICAL HISTORY:R10.9 Unspecified abdominal pain, right flank pain COMPARISON:None. IMPRESSION: 1.There is no hydronephrosis. 2.Renal cortical echogenicity is within normal limits. 3.Right kidney measures 11.5 x 4.5 x 6.3 cm. 4.Left kidney measures 10.6 x 5.3 x 5.4 cm. 5.Bladder is unremarkable. [id number] Procedure Note Interface, Radiology Results Incoming - 12/06/2016 5:37 PM CDT EXAMINATION: US RENAL CLINICAL HISTORY: R10.9 Unspecified abdominal pain, right flank pain COMPARISON: None. IMPRESSION: 1. There is no hydronephrosis. 2. Renal cortical echogenicity is within normal limits. 3. Right kidney measures 11.5 x 4.5 x 6.3 cm. 4. Left kidney measures 10.6 x 5.3 x 5.4 cm. 5. Bladder is unremarkable. [id number] US Breast Complete Bilateral (11/25/2016 10:26 AM) Specimen Performing Laboratory [facility] [address] [place] [address] Narrative EXAMINATION:MAMMO DIAGNOSTIC W CAD BILATERAL, US BREAST COMPLETE BILATERAL INDICATION:History of bloody nipple discharge.] And discharge in the past. No personal or family history of breast cancer. COMPARISON:None available FINDINGS: The breasts are heterogeneously dense which, may obscure small masses. There is a mildly suspicious cluster calcification seen centrally in the right breast with slight heterogeneous forms. There is another one or 2 small foci or clusters of microvascular calcification with a few calcification that appear somewhat heterogeneous. There is also a few scattered benign-appearing punctate calcification on the left. Bilateral whole breast sonography was performed by both the stitch bonding machine tender helper and myself. This included sonographic evaluation of all 4 quadrants as well as the subareolar regions bilaterally.No solid or cystic lesion of concern nor abnormal acoustic shadowing is detected. IMPRESSION:Mildly suspicious right breast calcification foci or cluster. RECOMMENDATION: Stereotactic biopsy of right breast. BI-RADS 4: SUSPICIOUS. [id number] Mammo Diagnostic w Cad Bilateral (11/25/2016 9:51 AM) Specimen Performing Laboratory [facility] [address] [place] [address] Narrative EXAMINATION:MAMMO DIAGNOSTIC W CAD BILATERAL, US BREAST COMPLETE BILATERAL INDICATION:History of bloody nipple discharge.] And discharge in the past. No personal or family history of breast cancer. COMPARISON:None available FINDINGS: The breasts are heterogeneously dense which, may obscure small masses. There is a mildly suspicious cluster calcification seen centrally in the right breast with slight heterogeneous forms. There is another one or 2 small foci or clusters of microvascular calcification with a few calcification that appear somewhat heterogeneous. There is also a few scattered benign-appearing punctate calcification on the left. Bilateral whole breast sonography was performed by both the stitch bonding machine tender helper and myself. This included sonographic evaluation of all 4 quadrants as well as the subareolar regions bilaterally.No solid or cystic lesion of concern nor abnormal acoustic shadowing is detected. IMPRESSION:Mildly suspicious right breast calcification foci or cluster. RECOMMENDATION: Stereotactic biopsy of right breast. BI-RADS 4: SUSPICIOUS. [id number] POC urinalysis dipstick (11/10/2016 12:05 PM) Component Value Ref Range Color urine, POC Yellow Clarity urine, POC Clear Glucose urine, POC Negative Negative Bilirubin urine, POC Negative Negative Ketones urine, POC Negative Negative Specific gravity urine, POC </=1.005 1.005 - 1.030 Blood urine, POC Negative Negative pH urine, POC 8.0 5.0, 5.5, 6.0, 6.5, 7.0, 7.5, 8.0, 8.5 Protein urine, POC Negative Negative Urobilinogen urine, POC Comment: negative <2.0 Nitrite urine, POC Negative Negative Leukocyte esterase urine, POC Negative Negative Specimen Performing Laboratory Urine ECG ED Preliminary Interpretation - NOT AN ORDER (09/02/2016 10:06 AM) Minnie Danielle MD 09/02/2016 10:06 AM ECG ED Preliminary Interpretation - Not an Order Performed by: ADRIEL LEACH Authorized by: HARSHIL DANIELLE Interpretation: Interpretation: non-specific Rate: ECG rate:82 bpm ECG rate assessment: normal Rhythm: Rhythm: sinus rhythm Ectopy: Ectopy: none QRS: QRS axis:Left ST segments: ST segments:Non-specific T waves: T waves: non-specific Sm and Sm/VESSEL BUILDER Antibodies (08/30/2016 4:55 PM) Component Value Ref Range Marx antibody <1.0 NEG <1.0 NEG AI VESSEL BUILDER-SM interp <1.0 NEG <1.0 NEG AI Specimen Performing Laboratory Blood [facility] Narrative FASTING:NO DNA Ab screen (08/30/2016 4:55 PM) Component Value Ref Range DNA ds antibody 1 IU/mL Comment: IU/mL Interpretation < or=4 Negative 5-9 Indeterminate > or=10 Positive Specimen Performing Laboratory Blood [facility] Narrative FASTING:NO Thyroperoxidase antibody (08/30/2016 4:55 PM) Component Value Ref Range Thyroperoxidase Ab 1 <9 IU/mL Specimen Performing Laboratory Blood [facility] Narrative FASTING:NO Scleroderma antibody (08/30/2016 4:55 PM) Component Value Ref Range Scleroderma SCL-70 Ab <1.0 NEG <1.0 NEG AI Specimen Performing Laboratory Blood [facility] Narrative FASTING:NO HLA B single locus low res - SSO (07/26/2016 10:26 AM) Component Value Ref Range HLA B single locus los res - SSO See link below for PDF Lab Report Specimen Performing Laboratory [facility] DEPARTMENT OF PATHOLOGY AND [facility] MEDICINE [address] [place] [id number] Thyroglobulin antibody (07/26/2016 10:26 AM) Component Value Ref Range Thyroglobulin Ab <0.9 0.0 - 4.0 IU/mL Specimen Performing Laboratory Serum [facility] DEPARTMENT OF PATHOLOGY AND [facility] MEDICINE [address] [place] [address] Protease-3 (07/26/2016 10:26 AM) Component Value Ref Range ME-3 (protease) 2 0 - 20 Units Comment: Negative:0 - 20 UNITS Weak Positive: 21 - 30 UNITS Moderate to Strong Positive: > 30 UNITS ME-3 (protease) interp Negative Negative Specimen Performing Laboratory Blood [facility] DEPARTMENT OF PATHOLOGY AND GENOMIC MEDICINE [address] [place] [id number] MPO (myeloperoxidase) (07/26/2016 10:26 AM) Component Value Ref Range MPO (myeloperoxidase) 2 0 - 20 Units Comment: Negative: 0 - 20 units Weak Positive:21 - 30 units Moderate to Strong: > 30 units MPO (myeloperoxidase) interp Negative Negative Specimen Performing Laboratory Blood [facility] DEPARTMENT OF PATHOLOGY AND GENOMIC MEDICINE [address] [place] [address] LISY titer (07/26/2016 10:26 AM) Component Value Ref Range LISY titer 1:160 (A) Not-Detected LISY titer 1 1:160 (A) Not-Detected LISY pattern Nucleolar (A) Not-Detected Specimen Performing Laboratory Blood [facility] DEPARTMENT OF PATHOLOGY AND [address] [address] Beta-2 glycoprotein 1 Abs, IgG & IgM (07/26/2016 10:26 AM) Component Value Ref Range Beta-2 glycoprotein 1 antibody, IgG 1 0 - 20 Beta-2 glycoprotein 1 antibody, IgM 2 0 - 20 Comment: INTERPRETIVE INFORMATION: [id number] I, IgG and IgM Antibody The persistent presence of IgG and/or IgM beta 2 glycoprotein I (B2GPI) antibodies (greater than 99th percentile) is a laboratory criterion for the diagnosis of antiphospholipid syndrome (APS). Persistence is defined as moderate or high levels of IgG and/or IgM B2GPI antibodies detected in two or more specimens drawn at least 12 weeks apart (J Throm Haemost. 2006;4:295-306). B2GPI results greater than 20 SGU (IgG) and/or SMU (IgM) are considered positive based on the cutoff values established for this test. International reference materials and consensus units for anti-B2GPI antibodies have not been established (Clin Tracie Acta. 2012;413(1-2):358-60; Arthritis Rheum. 2012;64(1):1-10.). Strong clinical correlation is recommended for a diagnosis of APS. Low positive IgG and IgM B2GPI antibody levels should be interpreted in light of APS-specific clinical manifestations and/or other criteria phospholipid antibody tests. Performed by [facility], [address] [place], [place] [id number] [email or web address], Ferny Rodríguez MD - Lab. Director Specimen Performing Laboratory [facility] [address] [place] [id number] Functional protein S (07/26/2016 10:26 AM) Component Value Ref Range Functional protein S 94 58 - 160 % Comment: Functional Protein S performed.If result is decreased Total and Free Protein S Antigen will be performed. Specimen Performing Laboratory Blood [facility] DEPARTMENT OF PATHOLOGY AND [facility] [address] [place] [id number] Functional protein C (07/26/2016 10:26 AM) Component Value Ref Range Functional protein C 146 70 - 165 % Specimen Performing Laboratory Blood [facility] DEPARTMENT OF PATHOLOGY AND [address] [id number] Lupus anticoagulant panel (07/26/2016 10:26 AM) Component Value Ref Range Prothrombin time 12.5 12.0 - 15.0 sec INR 0.9 Comment: The International Normalized Ratio (INR) is a therapeutic monitoring tool for patients who are stable on oral anticoagulant therapy. An INR of 2.0-3.0 is suggested for deep vein thrombosis/pulmonary embolism. PTT 28.3 23.0 - 36.0 sec Comment: PTT therapeutic range for unfractionated heparin is 61.0-112.0 seconds which corresponds to Anti-Xa 0.3-0.7 U/ml. PTT lupus anticoagulant 30.9 27.0 - 38.0 sec Comment: Lupus anticoagulant (LA) panel consists of PT, PTT, PTT-LA, and DRVVT. If the PTT-LA is above the normal range, the hexagonal phospholipid will be performed. If the DRVVT is above the normal range, the DRVVC confirmatory test will be performed. A normal result for both the DRVVT and the PTT-LA means the patient is negative for lupus anticoagulant. The patient is considered positive for lupus anticoagulant if either the Ratio SCR/CONF or the hexagonal phospholipid is high (positive) on two occassions at least six weeks apart. Clinical confirmation is also required for diagnosis. DRVVT 37.5 29.0 - 46.0 sec Specimen Performing Laboratory Blood [facility] DEPARTMENT OF PATHOLOGY AND [facility] [address] [place] [id number] Cardiolipin antibodies (07/26/2016 10:26 AM) Component Value Ref Range Cardiolipin IgG 1 0 - 14 GPL Comment: Negative=<15 GPL Indeterminate=15-20 GPL Positive=>20 GPL Cardiolipin IgM 5 0 - 12 MPL Comment: Negative=<13 MPL Indeterminate=13-20 MPL Positive=>20 MPL Specimen Performing Laboratory Blood [facility] DEPARTMENT OF PATHOLOGY AND [facility] [address] [place] [id number] Factor V leiden by PCR (07/26/2016 10:26 AM) Component Value Ref Range Factor V Leiden Normal Factor V Leiden See link below for PDF Lab ReportComment: Specimen Performing Laboratory Blood [facility] DEPARTMENT OF PATHOLOGY AND GENOMIC MEDICINE [address] [place] [address] Sedimentation rate (07/26/2016 10:26 AM) Component Value Ref Range Sedimentation rate 8 0 - 20 mm/hr Specimen Performing Laboratory Blood [facility] DEPARTMENT OF PATHOLOGY AND GENOMIC MEDICINE [address] [place] [phone] Antithrombin III level (07/26/2016 10:26 AM) Component Value Ref Range Antithrombin III 102 80 - 130 % Specimen Performing Laboratory Blood [facility] DEPARTMENT OF PATHOLOGY AND GENOMIC MEDICINE [address] [place] [id number] Pelvic Transvaginal (06/16/2016 11:19 AM) Specimen Performing Laboratory [facility] [address] [place] [id number] Narrative Uterus: Length: Surgically absent Endometrium: n/a Free Fluid:Not seen Rt Ovary:Surgically absent Rt Adnexa:wnl Lt Ovary: Surgically absent Lt Adnexa:wnl nw after 06/06/2016 Insurance Payer Benefit Plan / Group Subscriber ID Type Phone Address AETNA AETNA HMO,POS,EPO, MC/EC xxxxxxxxx HMO Home: [id number] [phone] [place], [place] [phone]
--- OUTSIDE RECORDS SUMMARY | 2017-06-07 16:22 | XMS REPORT ---
:1980 [facility] Address [address] [place] [address] Dr. Graham [address] [place] [id number] Care Team Providers Name Role Phone Unavailable Unavailable Unavailable Problems This patient has no known problems. Allergies, Adverse Reactions, Alerts This patient has no known allergies or adverse reactions. Medications This patient has no known medications. Results Test Description Test Time Test Comments Text Results Atomic Results Result Comments MRI BRAIN AND PITUITARY WO/W CLINICAL INDICATION: R51 Headache, visual disturbance.MODALITY: Siemens Skyra 3.0 Elenita MRITECHNIQUE: Multiplanar SE, FSE and inversion recovery pulse sequences of the brain were performed without contrast enhancement. High-resolution coronal and sagittal T1 and T2 imaging is obtained through the pituitary gland. Diffusion weighted imaging was utilized. IV contrast, 20 ml gadolinium are injected IV and post-contrast T1 axial and coronal images obtained. Axial FLAIR and postcontrast T1-weighted imaging are obtain through the entire brain.IMPRESSION:1. Mildly enlarged, partially empty sella. No evidence of sellar or parasellar mass.2. No evidence of intracranial demyelination process.3. Following contrast administration there is no abnormal enhancement in the brain, skull base or meninges.FINDINGS:COMPARISON: noneThe sella is mildly enlarged with intact sellar floor. Mildly thinned pituitary tissue measuring approximately 2 mm - 3.4 mm in CC dimension is seen along the floor of the sella. Findings are consistent with partially empty sella. The pituitary gland is homogeneous prior to and following contrast administration without evidence of pituitary microadenoma, pituitary mass or pituitary macroadenoma. The posterior pituitary gland is normal. The infundibulum is normal in position with normal signal characteristics prior to and following contrast administration. The suprasellar cistern is normal. Cavernous sinuses are normal bilaterally.Optic tracts and optic chiasm are normal. Hypothalamus, third ventricle and mesial temporal lobes are normal. There are normal flow voids in the carotid arteries and the cavernous sinuses. The prepontine cistern and vertebral basilar arteries are normal.Diffusion imaging is normal. There is no evidence of cerebral ischemia or infarct. There are no intracranial demyelinating lesions or significant white matter lesions. There are no intracranial masses, hydrocephalus, or hemorrhages. Brainstem, midbrain and cerebellum are normal. Internal auditory canals are normal. The craniocervical junction is normal without mass or Chiari malformation.Paranasal sinuses and mastoid air cells are clear.There is no pathologic intracranial enhancement.
--- NOTE | 2017-06-07 17:40 | RAD REPORT ---
EXAM DESCRIPTION: CT - Head Brain Wo Cont - 06/07/2017 5:34 pm CLINICAL HISTORY: Headache COMPARISON: 11/04/2008 TECHNIQUE: All CT scans are performed using dose optimization technique as appropriate and may inclu de automated exposure control or mA/KV adjustment according to patient size. FINDINGS: No intracranial hemorrhage, hydrocephalus or extra-axial fluid collection.No areas of brai n edema or evidence of midline shift. The paranasal sinuses and mastoids are clear. The calvarium is intact. IMPRESSION: No acute intracranial abnormality.
[2017-06-07 18:00] LABS: Absolute Lymphocytes (CBC) 2.1 K/uL (0.7-4.9); Absolute Monocytes 0.2 K/uL (0.1-1.3); Absolute Neutrophil 2.6 K/uL (1.8-8.0); Basophils % 0.7 % (0-1.3); Eosinophils % 1.7 % (0-4.4); Hematocrit 35.5 % (36.0-45.0); Lymphocytes % 41.5 % (15.3-44.8); MCH 29.9 pg (27.0-35.0); MCV 88.7 fL (80-100); MPV 8.9 fL (7.6-11.3); Monocytes % 4.7 % (3.3-12.3)
[2017-06-07] MEDS ORDERED: DIPHENHYDRAMINE 50 MG/ML VIAL ONE (18:09)
[2017-06-07] MEDS ORDERED: NA CHLORIDE 0.9% 1,000 ML ONE (18:09)
[2017-06-07 18:11] LABS: Potassium 3.8 mEq/L (3.6-5.0)
[2017-06-07 18:14] LABS: Bilirubin Total 0.2 mg/dL (0.3-1.2)
--- NOTE | 2017-06-07 19:06 | EDPHYS ---
Physician Documentation [facility] Name: Luis Felipe Nova Age: 37 yrs Sex: Female : 1980 Arrival Date: 06/07/2017 Time: 16:22 Bed 17 Private MD: out of town, doctor ED Physician Dickson Gonzalez HPI: 06/07 17:12 This 37 yrs old Female presents to ER via Ambulatory with complaints of ma2 Numbness Of Arm. 17:12 The patient or guardian complains of pain, that is acute. The complaints affect the ma2 right bicep and dorsal aspect of right forearm. Onset: The symptoms/episode began/occurred gradually, 3 hour(s) ago. Severity of symptoms: At their worst the symptoms were moderate. hx of migraine, has been having baseline headache for the last month now with gradual new headache that is occipital and associated with right arm and leg numbness and heaviness for the last 3 hours, gradual not worst of her life. no other symptom . 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 - Social history:: Smoking status: Patient/guardian denies using tobacco, Patient/guardian denies using alcohol, street drugs, The patient lives with family. - Family history:: not pertinent. ROS: 17:12 Neuro: Positive for headache, numbness, Negative for altered mental status, dizziness, ma2 gait disturbance, hearing loss, loss of consciousness, seizure activity, speech changes, syncope, near syncope, tingling, tinnitus, tremor, visual changes, weakness. 17:12 All other systems are negative. Exam: 17:12 Constitutional: This is a well developed, well nourished patient who is awake, alert, ma2 and in no acute distress. Chest/axilla: Normal chest wall appearance and motion. Nontender with no deformity. No lesions are appreciated. Cardiovascular: Regular rate and rhythm with a normal S1 and S2. No gallops, murmurs, or rubs. Normal PMI, no JVD. No pulse deficits. Respiratory: Lungs have equal breath sounds bilaterally, clear to auscultation and percussion. No rales, rhonchi or wheezes noted. No increased work of breathing, no retractions or nasal flaring. Abdomen/GI: Soft, non-tender, with normal bowel sounds. No distension or tympany. No guarding or rebound. No evidence of tenderness throughout. MS/ Extremity: Pulses equal, no cyanosis. Neurovascular intact. Full, normal range of motion. Neuro: Awake and alert, GCS 15, oriented to person, place, time, and situation. Cranial nerves II-XII grossly intact. Motor strength 5/5 in all extremities. Sensory grossly intact. Cerebellar exam normal. Normal gait. Psych: Awake, alert, with orientation to person, place and time. Behavior, mood, and affect are within normal limits. Vital Signs: 16:39 BP 125 / 84; Pulse 108; Resp 16; Temp 98.4; Pulse Ox 99% on R/A; Weight 113.4 kg; ch Height 5 ft. 11 in. (180.34 cm); Pain 6/10; 17:39 BP 122 / 86; Pulse 83; Resp 16; Pulse Ox 97% on R/A; mh5 18:25 BP 113 / 80; Pulse 84; Resp 16 S; Pulse Ox 99% on R/A; jl7 16:39 Body Mass Index 34.87 (113.40 kg, 180.34 cm) ch MDM: 16:46 Patient medically screened. ma2 17:12 Differential diagnosis: migraine headache, tension headache vs other headache unlikely ma2 brain bleeding or other condition. 19:04 Data reviewed: vital signs, nurses notes, halfway records, lab test result(s), ma2 EKG. Counseling: I had a detailed discussion with the patient and/or guardian regarding: the historical points, exam findings, and any diagnostic results supporting the discharge/admit diagnosis, the presence of at least one elevated blood pressure reading (>120/80) during this emergency department visit, the need for outpatient follow up. ED course: workup unremarkable, given IVF, phenargan and feels better . 06/07 17:12 Order name: CBC with Diff; Complete Time: 18:50 ma2 06/07 17:12 Order name: CMP; Complete Time: 18:50 ma2 06/07 17:12 Order name: CT Head Brain wo Cont; Complete Time: 18:01 ma2 06/07 17:12 Order name: Magnesium; Complete Time: 18:50 ma2 Administered Medications: 18:14 Drug: Benadryl 50 mg Route: IVP; Site: right antecubital; jl7 20:59 Follow up: Response: No adverse reaction ao 18:14 Drug: NS 0.9% 1000 ml Route: IV; Rate: 1 bolus; Site: right antecubital; jl7 20:59 Follow up: IV Status: Completed infusion; IV Intake: 1000ml ao 19:23 Drug: Phenergan 25 mg Route: IVP; Site: right antecubital; ao 20:59 Follow up: Response: No adverse reaction ao Disposition: 06/07/17 19:05 Discharged to Home. Impression: Migraine. - Condition is Stable. - Discharge Instructions: Migraine Headache. - Prescriptions for promethazine 25 mg Oral Tablet - take 1 tablet by ORAL route every 6 hours As needed; 20 tablet. - Medication Reconciliation Form, Thank You Letter, Antibiotic Education, Prescription Opioid Use form. - Follow up: Private Physician; When: Tomorrow; Reason: Continuance of care. - Problem is new. - Symptoms have improved. Signatures: Dispatcher [employer] Parvin Ortiz RN RN ch Ortiz, Alex, RN RN ao Leal, Jahala, RN RN jl7 Dickson Gonzalez MD MD sd2
--- NOTE | 2017-06-07 19:06 | ER ---
Nurse's Notes [facility] Name: Luis Felipe Nova Age: 37 yrs Sex: Female : 1980 Arrival Date: 06/07/2017 Time: 16:22 Bed 17 Private MD: out of town, doctor Diagnosis: Migraine Presentation: 06/07 16:36 Presenting complaint: Patient states: pt c/o feeling soda fizz in the back of the head, ch then headache to back of head. states the R side of body feels heavy. started at 1330. pt has hx of migranes, atypical that cause weakness and tingling. Transition of care: patient was not received from another setting of care. Onset of symptoms was June 07, 2017 at 13:30. Initial Sepsis Screen: Does the patient meet any 2 criteria? No. Patient's initial sepsis screen is negative. Does the patient have a suspected source of infection? No. Patient's initial sepsis screen is negative. Care prior to arrival: None. 16:36 Method Of Arrival: Ambulatory 16:36 Acuity: BRIANNA 3 ch Triage Assessment: 16:39 General: Appears in no apparent distress. comfortable, Behavior is calm, cooperative, ch appropriate for age. Pain: Complains of pain in occipital area and base of the skull. Neuro: Level of Consciousness is awake, alert, obeys commands, Oriented to person, place, time, situation, Phd Intern are equal bilaterally Moves all extremities. Full function Gait is steady, Speech is normal, Facial symmetry appears normal, Facial symmetry: tongue is midline, Pupils are PERRLA, Reports headache pt reports feeling heavy on R arm. 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 - Social history:: Smoking status: Patient/guardian denies using tobacco, Patient/guardian denies using alcohol, street drugs, The patient lives with family. - Family history:: not pertinent. Screenin:00 Abuse screen: Denies threats or abuse. Denies injuries from another. Nutritional jl7 screening: No deficits noted. Tuberculosis screening: No symptoms or risk factors identified. Fall Risk IV access (20 points). Total Leija Fall Scale indicates No Risk (0-24 pts). Assessment: 16:45 General: Appears in no apparent distress. uncomfortable, Behavior is calm, cooperative, jl7 appropriate for age. Pain: Complains of pain in right parietal area Pain does not radiate. Pain currently is 7 out of 10 on a pain scale. Quality of pain is described as pressure, Pain began 4 hours ago. Is continuous. Neuro: Level of Consciousness is awake, alert, obeys commands, Oriented to person, place, time, situation, Phd Intern are weak bilaterally Moves all extremities. Gait is steady, Speech is normal, Facial symmetry appears normal, Pupils are PERRLA. Cardiovascular: Heart tones S1 S2 present. Respiratory: Airway is patent Respiratory effort is even, unlabored, Respiratory pattern is regular, symmetrical, Breath sounds are clear bilaterally. GI: No signs and/or symptoms were reported involving the gastrointestinal system. : No signs and/or symptoms were reported regarding the genitourinary system. EENT: No signs and/or symptoms were reported regarding the EENT system. Derm: Skin is pink, warm \\T\\ dry. Musculoskeletal: No signs and/or symptoms reported regarding the musculoskeletal system. 17:45 Reassessment: No changes from previously documented assessment. Patient and/or family jl7 updated on plan of care and expected duration. Pain level reassessed. Patient is alert, oriented x 3, equal unlabored respirations, skin warm/dry/pink. 19:20 General: Appears in no apparent distress. comfortable, Behavior is calm, cooperative, ao appropriate for age. Pain: Complains of pain in migranine hadche. Neuro: Level of Consciousness is awake, alert, obeys commands, Oriented to person, place, time, situation. Cardiovascular: Patient's skin is warm and dry. Respiratory: Airway is patent Respiratory effort is even, unlabored, Respiratory pattern is regular, symmetrical. GI: No signs and/or symptoms were reported involving the gastrointestinal system. : No signs and/or symptoms were reported regarding the genitourinary system. EENT: No signs and/or symptoms were reported regarding the EENT system. Derm: No signs and/or symptoms reported regarding the dermatologic system. 20:10 Reassessment: Patient o be discharge after fluids are done. ao Vital Signs: 16:39 BP 125 / 84; Pulse 108; Resp 16; Temp 98.4; Pulse Ox 99% on R/A; Weight 113.4 kg; ch Height 5 ft. 11 in. (180.34 cm); Pain 6/10; 17:39 BP 122 / 86; Pulse 83; Resp 16; Pulse Ox 97% on R/A; mh5 18:25 BP 113 / 80; Pulse 84; Resp 16 S; Pulse Ox 99% on R/A; jl7 16:39 Body Mass Index 34.87 (113.40 kg, 180.34 cm) ED Course: 16:22 Patient arrived in ED. mr 16:22 out of town, doctor is Private Physician. mr 16:37 Triage completed. 16:39 Arm band placed on left wrist. Patient placed in an exam room. 16:46 Dickson Gonzalez MD is Attending Physician. ma 17:00 Patient has correct armband on for positive identification. Placed in gown. Bed in low jl7 position. Call light in reach. Side rails up X 1. monitor worker on. Pulse ox on. NIBP on. Warm blanket given. 17:00 Report given to KEESHA Romero. jl7 17:33 CT completed. Patient tolerated procedure well. Patient moved to CT via wheelchair. nj Patient moved back from CT. 17:34 CT Head Brain wo Cont In Process Unspecified. EDMS 18:08 Renee Paz RN is Primary Nurse. jl7 18:21 Initial lab(s) drawn, by fl, sent to lab. Inserted saline lock: 22 gauge in right mh5 antecubital area, using aseptic technique. Blood collected. 20:20 No provider procedures requiring assistance completed. IV discontinued, intact, ao bleeding controlled, No redness/swelling at site. Pressure dressing applied. Administered Medications: 18:14 Drug: Benadryl 50 mg Route: IVP; Site: right antecubital; jl7 20:59 Follow up: Response: No adverse reaction ao 18:14 Drug: NS 0.9% 1000 ml Route: IV; Rate: 1 bolus; Site: right antecubital; jl7 20:59 Follow up: IV Status: Completed infusion; IV Intake: 1000ml ao 19:23 Drug: Phenergan 25 mg Route: IVP; Site: right antecubital; ao 20:59 Follow up: Response: No adverse reaction ao Intake: 20:59 IV: 1000ml; Total: 1000ml. ao Outcome: 19:05 Discharge ordered by MD. hardy 20:20 Discharged to home ambulatory. ao 20:20 Condition: stable 20:20 Discharge instructions given to patient, Instructed on discharge instructions, Demonstrated understanding of instructions, follow-up care, medications, Prescriptions given X 1. 20:57 Patient left the ED. ao Signatures: Dispatcher [employer] EDMS Parvin Jain, Rachael Mcclellan RN, ch, Alex RN Ronny Woodruff Maria mh5 Leal, Jahala, RN RN jl7 Dickson Gonzalez MD MD ma2
[2017-06-07] MEDS ORDERED: PROMETHAZINE 25 MG/ML VIAL ONE (19:14)
[2017-06-07 21:12] VITALS: TEMP 98.4
[2017-06-07 21:14] VITALS: BP 113/80; O2SAT 99
== END 2017-06-07 20:57 | disposition home or self-care (01) ==
LOC: ER 16:18
DX: G43.909 Migraine, unspecified, not intractable, without status migrainosus (principal); Z88.2 Allergy status to sulfonamides; Z88.8 Allergy status to other drugs, medicaments and biological substances
CPT/HCPCS: 36415; 70450; 80053; 83735; 85025; 96361; 96374; 96375; 99285; J2550; J7030

== ENCOUNTER 2018-01-10 08:24 | Emergency (ER) | payer OTHER ==
[2018-01-10] MEDS ORDERED: ONDANSETRON 4 MG/2 ML VIAL ONE ×2 (08:44→09:48)
[2018-01-10] MEDS ORDERED: NA CHLORIDE 0.9% 1,000 ML ONE (08:44)
[2018-01-10] MEDS ORDERED: KETOROLAC 30 MG/ML INJ ONE (09:06)
[2018-01-10 09:14] LABS: Absolute Lymphocytes (CBC) 2.2 K/uL (0.7-4.9); Absolute Monocytes 0.3 K/uL (0.1-1.3); Absolute Neutrophil 2.7 K/uL (1.8-8.0); Basophils % 0.6 % (0-1.3); Eosinophils % 1.4 % (0-4.4); Hematocrit 36.9 % (36.0-45.0); Lymphocytes % 41.7 % (15.3-44.8); MCH 29.2 pg (27.0-35.0); MCV 86.9 fL (80-100); MPV 9.8 fL (7.6-11.3); RBC Red Blood Cell Count 4.25 M/uL (3.86-4.86)
--- NOTE | 2018-01-10 09:17 | RAD REPORT ---
EXAM DESCRIPTION: CT - Stone Protocol - 01/10/2018 9:07 am CLINICAL HISTORY: Right flank pain for 2 days, now radiating to the right lower quadrant, hematuria, prior , cholecystectomy and hysterectomy COMPARISON: January 2014 CT, renal ultrasound January 05 TECHNIQUE: Axial 5 mm thick images were obtained without oral or IV contrast. The [id number] span s the entirety of the system including uppermost abdomen and lung bases. All CT scans are performed using dose optimization technique as appropriate and may include automated exposure control or mA/KV adjustment according to patient size. FINDINGS: No hydronephrosis is present and no obstructing ureteral calculi. No renal pelvic or calic eal calcifications. No suspicious renal masses. Isodense masses and pyelonephritis are not excluded o n a stone protocol CT scan. Urinary bladder is only partially filled. No bladder calculi or acute fin ding suspected. No adrenal abnormalities. Imaged portions of the liver, spleen and pancreas show no suspicious findings on non-contrast imaging . Liver does demonstrate a fatty infiltration pattern. Cholecystectomy clips are present. No biliary tree dilatation. No appendicitis findings. No acute GI process identifiable. Patient has a few small nonspecific sub c entimeter sized mesenteric lymph nodes. No hernia, mass or bulky lymphadenopathy noted. No free air, free fluid or inflammatory stranding. No significant bony abnormality. IMPRESSION: No hydronephrosis, obstructing calculus or other acute finding. Isodense masses and pyelonephritis are not excluded on stone protocol technique. No appendicitis or acute GI process seen. Patient does have a few small nonspecific mesenteric lymph nodes. Status post cholecystectomy with no biliary tree dilatation.
--- OUTSIDE RECORDS SUMMARY | 2018-01-10 09:17 | XMS REPORT | Clinical Summary ---
:1980 Author Organization [facility] Address [address] [place] [address] Care Team Providers Name Role Phone Prudence Carr MD Primary Care Provider Allergies Active Allergy Reactions Severity Noted Date Comments Metoclopramide Hcl Diarrhea High 03/03/2016 Sulfa (Sulfonamide Antibiotics) Hives, Rash High 06/12/2013 Medications Medication Sig Dispensed Refills Start End Date Status Date hydroxychloroquine TAKE 1 TABLET 1 Active (PLAQUENIL) 200 mg (200 MG TOTAL) 7 tablet BY MOUTH DAILY FOR 90 DAYS. estrogens, conjugated, Take 1.25 mg 0 Active (PREMARIN) 1.25 MG by mouth tablet daily. levothyroxine Take 137 mcg 90 tablet 3 Active (SYNTHROID, LEVOXYL) by mouth every 7 137 mcg tablet morning. ARNUITY ELLIPTA 100 0 Active mcg/actuation blister 8 with device PREMARIN 1.25 mg TAKE 1 TABLET 90 tablet 0 Active tabletIndications: Hot (1.25 MG 8 flashes due to TOTAL) BY menopause MOUTH DAILY. valproic acid Take 250 mg by 0 05/27/19 Discontinued (DEPAKENE) 250 mg mouth 2 (two) 7 18 capsule times a day. DULoxetine (CYMBALTA) 1 CAPSULE BY 1 02/24/19 Discontinued 60 MG capsule MOUTH DAILY 7 18 acetaminophen Take 500 mg by 0 02/24/19 Discontinued (TYLENOL) 500 MG mouth every 4 18 tablet (four) hours as needed for mild pain. levothyroxine Take 137 mcg 0 12/29/20 Discontinued (SYNTHROID, LEVOXYL) by mouth every 17 137 mcg tablet morning. meloxicam (MOBIC) 15 Take 15 mg by 0 02/24/19 Discontinued mg tablet mouth daily. 18 traZODone (DESYREL) 50 Take 50 mg by 0 05/27/19 Discontinued MG tablet mouth every 18 evening. FLUoxetine (PROzac) 20 Take 40 mg by 0 05/27/19 Discontinued MG capsule mouth daily. 18 traMADol-acetaminophen Take 1 tablet 10 tablet 0 01/15/20 (ULTRACET) 37.5-325 mg by mouth every 7 17 per tablet 6 (six) hours as needed for moderate pain for up to 5 days. predniSONE (DELTASONE) Take 1 tablet 5 tablet 0 01/15/20 50 mg tablet (50 mg total) 7 17 by mouth daily for 5 days. naproxen (NAPROSYN) Take 1 tablet 14 tablet 0 02/24/19 Discontinued 500 MG tablet (500 mg total) 8 18 by mouth 2 (two) times a day with meals for 7 days. PREMARIN 1.25 mg TAKE 1 TABLET 90 tablet 1 02/24/19 Discontinued tabletIndications: Hot (1.25 MG 8 18 flashes due to TOTAL) BY menopause MOUTH DAILY. meloxicam (MOBIC) 15 TAKE 1 TABLET 30 tablet 2 02/24/19 Discontinued mg tabletIndications: (15 MG TOTAL) 8 18 Positive LISY BY MOUTH (antinuclear antibody) DAILY. traMADol (ULTRAM) 50 Take 1 tablet 120 tablet 0 04/15/19 mg tablet (50 mg total) 8 18 by mouth every 6 (six) hours as needed for moderate pain for up to 31 days. predniSONE (DELTASONE) Days 1-3:8 tab 120 tablet 1 05/09/19 5 mg PO AM;4-7 7 8 18 tabletIndications: tab PO Myalgia AM;8-11:6 tab PO AM;12-15-5 tab PO AM;16-19:4 tab PO AM;20-23:3 tab PO AM;24-27:2 tab PO AM;28-31:1 tab PO butalbital-acetaminoph Take 2 tablets 180 tablet 0 06/26/19 en-caff (FIORICET, by mouth 3 8 18 ESGIC) 50-325-40 mg (three) times per tablet a day for 30 days. gabapentin (NEURONTIN) Take 1 capsule 90 capsule 0 06/25/19 100 mg capsule (100 mg total) 8 18 by mouth 3 (three) times a day for 30 days. zonisamide (ZONEGRAN) Take 1 capsule 30 capsule 0 06/25/19 100 MG capsule (100 mg total) 8 18 by mouth nightly for 30 days. methylPREDNISolone follow package 21 tablet 0 05/31/19 (MEDROL DOSEPAK) 4 mg directions 8 18 tablet DULoxetine (CYMBALTA) Take 1 capsule 60 capsule 0 06/25/19 60 MG capsule (60 mg total) 8 18 by mouth 2 (two) times a day for 30 days. promethazine Take 1 tablet 20 tablet 0 05/31/19 (PHENERGAN) 12.5 MG (12.5 mg 8 18 tablet total) by mouth every 6 (six) hours as needed for nausea or vomiting for up to 5 days. traZODone (DESYREL) Take 1 tablet 30 tablet 0 06/26/19 100 MG tablet (100 mg total) 8 18 by mouth every evening for 30 days. PREMARIN 1.25 mg TAKE 1 TABLET 90 tablet 0 12/09/19 Discontinued tabletIndications: Hot (1.25 MG 8 18 flashes due to TOTAL) BY menopause MOUTH DAILY. Active Problems Problem Noted Date Status migrainosus 05/14/2017 Chest pain 01/05/2017 Migraine with status migrainosus 03/04/2016 Acquired hypothyroidism 02/16/2016 Deep vein thrombosis 02/07/2014 Overview: had blood clot to left arm from IV, treated with bld.thinner for 6 mos.and cleared now. Anxiety and depression Encounters Date Type Specialty Care Team Description 12/08/2017 Refill Obstetrics and [place]rick, Hot flashes due to Gynecology [place], menopause 11/30/2017 Telephone Obstetrics and [place], Screening mammogram, Gynecology Ami Ordoñez, encounter for MD (Primary Dx) 09/03/2017 Refill Obstetrics and [place], Hot flashes due to Gynecology saray Santos MD 05/24/2017 Telephone Gastroenterology Jodi Cohn MA 05/17/2017 Orders Only Radiology Josue Mclaughlin 05/14/2017 Hospital Obstetrics and Chuy Wang Status migrainosus ( Primary Dx); - Encounter Gynecology MD [place] Intractable headache, unspecified chronicity pattern, unspecified headache type 05/26/2017 Mike Leyva MD Ahmed, Rezwan, MD Nguyen, Leanne, MD 05/07/2017 Emergency Emergency Medicine Mike Leyva Intractable migraine MD Surendra without aura and without status migrainosus (Primary Dx) 04/29/2017 [facility] Radiology Jessy, Generalized abdominal Encounter Leonidas Amato MD pain 04/28/2017 Telephone Gastroenterology Leonidas Jiménez MD 04/20/2017 Telephone Rheumatology Juliana Jin MA 04/14/2017 Office Visit Gastroenterology Jessy, Generalized abdominal Leonidas Amato MD pain (Primary Dx) [...] Positive LISY (antinuclear antibody); Epigastric pain; Hypocalcemia; long term care pharmacist current use of systemic steroids; Encounter for long-term (current) use of NSAIDs; Vitamin D deficiency 03/14/2017 Orders Only Rheumatology Juliana Jin MA 03/11/2017 Lab Lab Leonidas Jiménez MD 03/03/2017 Telephone Gastroenterology Leonidas Jiménez MD 03/02/2017 Hospital Radiology [place], Abnormal ultrasound Encounter Prudence Kramer MD of liver 03/02/2017 [facility] Rheumatology Radu Curry Costochondritis ( Primary Dx); MD Kiel Myalgia; Positive LISY (antinuclear antibody); Epigastric pain; Iron deficiency anemia due to chronic blood loss 02/24/2017 Refill Rheumatology Radu Curry Positive LISY MD Kiel (antinuclear antibody) 02/18/2017 Office Visit Internal Medicine [place], Pleurisy (Primary Dx); Prudence Kramer MD Abnormal ultrasound of liver 02/18/2017 Refill Obstetrics and [place], Hot flashes due to Gynecology saray Santos MD 02/18/2017 Abstract Cardiothoracic Surgery Claudy Garber MD 02/04/2017 Orders Only Internal Medicine Mary Givens MA 01/17/2017 [facility] 01/[facility]2017 Emergency Emergency Medicine Ángela Davidson, Other chest pain PA (Primary Dx) Mike Leyva MD after 01/09/2017 Immunizations Name Dates Previously Given Next Due [...] Assigned at Date Recorded Not on file Job Start Date Occupation Industry Not on file Not on file Not on file Travel History Travel Start Travel End No recent travel history available. Last Filed Vital Signs Vital Sign Reading [...] Treatment Date Type Specialty Care Team Description 05/02/2018 Office Visit Obstetrics and Gynecology Ami Suarez MD [id number] [facility] [address] [place] [id number] Health Maintenance Due Date Last Done Comments CERVICAL CANCER SCREENING 02/11/2014 02/11/2011 INFLUENZA VACCINE 09/07/2017 HEPATITIS B VACCINES Aged Out No longer eligible based on patient's age to complete this topic IPV VACCINES Aged Out No longer eligible based on patient's age to complete this topic MENINGOCOCCAL VACCINE Aged Out No longer eligible based on patient's age to complete this topic Procedures Procedure Name Priority Date/Time Associated Diagnosis Comments MRI BRAIN WO CONTRAST STAT 05/25/2017 4:31 Results for this PM CDT procedure are in the results section. PROTHROMBIN TIME WITH STAT 05/25/2017 3:00 Results for this INR PM CDT procedure are in the results section. PARTIAL THROMBOPLASTIN STAT 05/25/2017 3:00 Results for this TIME (PTT) PM CDT procedure are in the results section. HC COMPLETE BLD COUNT STAT 05/25/2017 3:00 Results for this W/AUTO DIFF PM CDT procedure are in the results section. ZZESTIMATED GFR STAT 05/25/2017 2:45 Results for this PM CDT procedure are in the results section. BASIC METABOLIC PANEL STAT 05/25/2017 2:45 Results for this PM CDT procedure are in the results section. TROPONIN STAT 05/25/2017 2:45 Results for this PM CDT procedure are in the results section. MAGNESIUM LEVEL STAT 05/25/2017 2:45 Results for this PM CDT procedure are in the results section. LACTIC ACID LEVEL STAT 05/25/2017 2:45 Results for this PM CDT procedure are in the results section. IONIZED CALCIUM STAT 05/25/2017 2:45 Results for this PM CDT procedure are in the results section. ECG 12-LEAD Routine 05/25/2017 2:30 Results for this PM CDT procedure are in the results section. POC GLUCOSE Routine 05/25/2017 2:16 Results for this PM CDT procedure are in the results section. ZINC LEVEL, SERUM Routine 05/25/2017 6:00 Results for this AM CDT procedure are in the results section. CT ANGIOGRAM HEAD W WO Routine 05/21/2017 8:16 Results for this CONTRAST PM CDT procedure are in the results section. CT CERVICAL SPINE WO Routine 05/21/2017 8:04 Results for this CONTRAST PM CDT procedure are in the results section. FOLATE LEVEL Routine 05/21/2017 4:24 Results for this PM CDT procedure are in the results section. VITAMIN B12 LEVEL Routine 05/21/2017 4:24 Results for this PM CDT procedure are in the results section. LISY Routine 05/21/2017 4:24 Results for this PM CDT procedure are in the results section. HC COMPLETE BLD COUNT Routine 05/21/2017 12:15 Results for this W/AUTO DIFF PM CDT procedure are in the results section. ZZESTIMATED GFR Routine 05/21/2017 4:10 Results for this AM CDT procedure are in the results section. CBC WITH PLATELET AND Routine 05/21/2017 4:10 Results for this DIFFERENTIAL AM CDT procedure are in the results section. BASIC METABOLIC PANEL Routine 05/21/2017 4:10 Results for this AM CDT procedure are in the results section. ZZESTIMATED GFR Routine 05/20/2017 4:40 Results for this AM CDT procedure are in the results section. HC COMPLETE BLD COUNT Routine 05/20/2017 4:40 Results for this W/AUTO DIFF AM CDT procedure are in the results section. BASIC METABOLIC PANEL Routine 05/20/2017 4:40 Results for this AM CDT procedure are in the results section. ECG 12-LEAD Routine 05/19/2017 11:39 Results for this AM CDT procedure are in the results section. SMEAR REVIEW Routine 05/19/2017 5:10 Results for this AM CDT procedure are in the results section. ZZESTIMATED GFR Routine 05/19/2017 5:10 Results for this AM CDT procedure are in the results section. HC COMPLETE BLD COUNT Routine 05/19/2017 5:10 Results for this W/AUTO DIFF AM CDT procedure are in the results section. BASIC METABOLIC PANEL Routine 05/19/2017 5:10 Results for this AM CDT procedure are in the results section. ECG 12-LEAD Routine 05/18/2017 10:41 Results for this AM CDT procedure are in the results section. ZZESTIMATED GFR Routine 05/18/2017 4:40 Results for this AM CDT procedure are in the results section. HC COMPLETE BLD COUNT Routine 05/18/2017 4:40 Results for this W/AUTO DIFF AM CDT procedure are in the results section. BASIC METABOLIC PANEL Routine 05/18/2017 4:40 Results for this AM CDT procedure are in the results section. CYTOMEGALOVIRUS BY PCR Routine 05/17/2017 2:53 Results for this PM CDT procedure are in the results section. LYNDA MALONE VIRUS (EBV) Routine 05/17/2017 2:53 Results for this BY PCR PM CDT procedure are in the results section. HERPES SIMPLEX VIRUS BY Routine 05/17/2017 2:53 Results for this PCR PM CDT procedure are in the results section. VARICELLA ZOSTER BY PCR Routine 05/17/2017 2:53 Results for this PM CDT procedure are in the results section. ENTEROVIRUS BY PCR Routine 05/17/2017 2:53 Results for this PM CDT procedure are in the results section. IGG SYNTHESIS RATE STUDY Routine 05/17/2017 2:53 Results for this PM CDT procedure are in the results section. GLUCOSE LEVEL, CSF Routine 05/17/2017 2:53 Results for this PM CDT procedure are in the results section. PROTEIN, CSF Routine 05/17/2017 2:53 Results for this PM CDT procedure are in the results section. CSF CELL COUNT WITH Routine 05/17/2017 2:53 Results for this DIFFERENTIAL PM CDT procedure are in the results section. GRAM STAIN Routine 05/17/2017 2:53 Results for this PM CDT procedure are in the results section. FUNGUS CULTURE Routine 05/17/2017 2:53 Results for this PM CDT procedure are in the results section. AFB CULTURE Routine 05/17/2017 2:53 Results for this PM CDT procedure are in the results section. CSF CULTURE Routine 05/17/2017 2:53 Results for this PM CDT procedure are in the results section. CRYPTOCOCCAL ANTIGEN Routine 05/17/2017 2:53 Results for this SCREEN PM CDT procedure are in the results section. IR LUMBAR PUNCTURE Routine 05/17/2017 1:52 Results for this PM CDT procedure are in the results section. CT STROKE BRAIN WO STAT 05/17/2017 9:04 Results for this CONTRAST AM CDT procedure are in the results section. HC COMPLETE BLD COUNT Routine 05/17/2017 5:23 Results for this W/AUTO DIFF AM CDT procedure are in the results section. ZZESTIMATED GFR Routine 05/17/2017 4:00 Results for this AM CDT procedure are in the results section. BASIC METABOLIC PANEL Routine 05/17/2017 4:00 Results for this AM CDT procedure are in the results section. HC COMPLETE BLD COUNT Routine 05/16/2017 4:20 Results for this W/AUTO DIFF AM CDT procedure are in the results section. ZZESTIMATED GFR Routine 05/16/2017 4:00 Results for this AM CDT procedure are in the results section. BASIC METABOLIC PANEL Routine 05/16/2017 4:00 Results for this AM CDT procedure are in the results section. ZZESTIMATED GFR Routine 05/15/2017 5:00 Results for this AM CDT procedure are in the results section. LIPID PANEL Routine 05/15/2017 5:00 Results for this AM CDT procedure are in the results section. T4, FREE Routine 05/15/2017 5:00 Results for this AM CDT procedure are in the results section. THYROID STIMULATING Routine 05/15/2017 5:00 Results for this HORMONE AM CDT procedure are in the results section. PHOSPHORUS LEVEL Routine 05/15/2017 5:00 Results for this AM CDT procedure are in the results section. MAGNESIUM LEVEL Routine 05/15/2017 5:00 Results for this AM CDT procedure are in the results section. BASIC METABOLIC PANEL Routine 05/15/2017 5:00 Results for this AM CDT procedure are in the results section. CBC HEMOGRAM Routine 05/15/2017 5:00 Results for this AM CDT procedure are in the results section. HEMOGLOBIN A1C STAT 05/14/2017 5:15 Results for this PM CDT procedure are in the results section. HCG QUALITATIVE, URINE Routine 05/14/2017 3:38 Results for this SCREEN PM CDT procedure are in the results section. URINALYSIS SCREEN AND Routine 05/14/2017 3:38 Results for this MICROSCOPY, WITH REFLEX PM CDT procedure are in TO CULTURE the results section. URINE CULTURE Routine 05/14/2017 3:38 Results for this PM CDT procedure are in the results section. MAGNESIUM LEVEL STAT 05/14/2017 3:34 Results for this PM CDT procedure are in the results section. PHOSPHORUS LEVEL STAT 05/14/2017 3:34 Results for this PM CDT procedure are in the results section. VALPROIC ACID LEVEL STAT 05/14/2017 3:34 Results for this PM CDT procedure are in the results section. ZZESTIMATED GFR STAT 05/14/2017 3:34 Results for this PM CDT procedure are in the results section. BASIC METABOLIC PANEL STAT 05/14/2017 3:34 Results for this PM CDT procedure are in the results section. HC COMPLETE BLD COUNT STAT 05/14/2017 3:34 Results for this W/AUTO DIFF PM CDT procedure are in the results section. US DUPLEX VENOUS UPPER STAT 05/14/2017 3:00 Results for this EXTREMITY RIGHT PM CDT procedure are in the results section. CT ABDOMEN PELVIS W Routine 04/29/2017 12:25 Generalized Results for this CONTRAST PM CDT abdominal 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 LIPASE LEVEL Routine 04/14/2017 11:23 Generalized Results for this AM [employer] abdominal 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 AMYLASE LEVEL Routine 04/14/2017 11:23 Generalized Results for this AM [employer] abdominal 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 COMPREHENSIVE METABOLIC Routine 04/14/2017 11:23 Generalized Results for this PANEL AM [employer] abdominal 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 CBC HEMOGRAM Routine 04/14/2017 11:23 Generalized Results for this AM [employer] abdominal 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 HLA TYPING FOR CELIAC Routine 04/06/2017 11:52 IgA deficiency Results for this DISEASE AM [employer] Diarrhea due to procedure are in malabsorption the results section. TISSUE TRANSGLUTAMINASE Routine 03/16/2017 9:07 Results for this AB, IGG AM [employer] procedure are in the results section. TEST AUTHORIZATION Routine 03/16/2017 9:07 Results for this AM [employer] procedure are in the results section. CELIAC DISEASE PANEL Routine 03/16/2017 9:07 Results for this AM [employer] procedure are in the results section. VITAMIN D 25 HYDROXY Routine 03/16/2017 9:07 Vitamin D deficiency Results for this LEVEL AM [employer] procedure are in the results section. VITAMIN B12 LEVEL Routine 03/16/2017 9:07 Myalgia Results for this AM [employer] procedure are in the results section. URINALYSIS, AUTOMATED Routine 03/16/2017 9:07 Encounter for Results for this WITH MICROSCOPY AM [employer] long-term (current) procedure are in use of NSAIDs the results section. MAYI-1 ANTIBODY Routine 03/16/2017 9:07 Positive LISY Results for this AM [employer] (antinuclear procedure are in antibody) the results section. SS-B ANTIBODY Routine 03/16/2017 9:07 Positive LISY Results for this AM [employer] (antinuclear procedure are in antibody) the results section. SS-A ANTIBODY Routine 03/16/2017 9:07 Positive LISY Results for this AM [employer] (antinuclear procedure are in antibody) the results section. COMPLEMENT ACTIVITY, Routine 03/16/2017 9:07 Positive LISY Results for this TOTAL AM [employer] (antinuclear procedure are in antibody) the results section. C4 COMPLEMENT COMPONENT Routine 03/16/2017 9:07 Positive LISY Results for this AM [employer] (antinuclear procedure are in antibody) the results section. C3 COMPLEMENT COMPONENT Routine 03/16/2017 9:07 Positive LISY Results for this AM [employer] (antinuclear procedure are in antibody) the results section. LISY SCREEN W IFA W Routine 03/16/2017 9:07 Positive LISY Results for this REFLEX TO TITER AM [employer] (antinuclear procedure are in antibody) the results section. MAGNESIUM LEVEL Routine 03/16/2017 9:07 Hypocalcemia Results for this AM [employer] procedure are in the results section. PARATHYROID HORMONE Routine 03/16/2017 9:07 Hypocalcemia Results for this AM [employer] procedure are in the results section. ACETYLCHOLINE RECEPTOR Routine 03/16/2017 9:07 Myalgia Results for this BINDING AB AM [employer] procedure are in the results section. ANGIOTENSIN CONVERTING Routine 03/16/2017 9:07 Myalgia Results for this ENZYME AM [employer] procedure are in the results section. IONIZED CALCIUM Routine 03/16/2017 9:07 Hypocalcemia Results for this AM [employer] procedure are in the results section. COMPREHENSIVE METABOLIC Routine 03/16/2017 9:07 Encounter for Results for this PANEL AM [employer] long-term (current) procedure are in use of NSAIDs the results section. HEMOGLOBIN A1C Routine 03/16/2017 9:07 longterm current Results for this AM [employer] use of systemic procedure are in steroids the results section. CREATINE KINASE, TOTAL Routine 03/16/2017 9:07 Myalgia Results for this (CPK) AM [employer] procedure are in the results section. C-REACTIVE PROTEIN Routine 03/16/2017 9:07 Positive LISY Results for this AM [employer] (antinuclear procedure are in antibody) the results section. ALDOLASE, SERUM Routine 03/16/2017 9:07 Myalgia Results for this AM [employer] procedure are in the results section. SURGICAL PATHOLOGY Routine 03/11/2017 4:43 Results for this REQUEST PM [employer] procedure are in the results section. MRI ABDOMEN W WO Routine 03/02/2017 8:20 Abnormal ultrasound Results for this CONTRAST AM [employer] of liver procedure are in the results section. LIPASE LEVEL Routine 02/24/2017 1:15 Epigastric pain Results for this PM [employer] procedure are in the results section. AMYLASE LEVEL Routine 02/24/2017 1:15 Epigastric pain Results for this PM [employer] procedure are in the results section. CBC WITH PLATELET AND Routine 02/24/2017 1:15 Iron deficiency Results for this DIFFERENTIAL PM [employer] anemia due to procedure are in chronic blood loss the results section. TOTAL IRON BINDING Routine 02/24/2017 1:15 Iron deficiency Results for this CAPACITY PM [employer] anemia due to procedure are in chronic blood loss the results section. RETICULOCYTE COUNT, Routine 02/24/2017 1:15 Iron deficiency Results for this AUTOMATED PM [employer] anemia due to procedure are in chronic blood loss the results section. FERRITIN LEVEL Routine 02/24/2017 1:15 Iron deficiency Results for this PM [employer] anemia due to procedure are in chronic blood loss the results section. ECG 12-LEAD STAT 01/09/2017 4:14 Results for this PM [employer] procedure are in the results section. after 01/09/2017 Results MRI Brain Wo Contrast (05/25/2017 4:31 PM CDT) Narrative Performed At EXAMINATION:MRI BRAIN WO CONTRAST [facility] CLINICAL HISTORY:speech change COMPARISON:May 17, 2017 Findings: No intracranial hemorrhage, acute ischemia, extra-axial fluid collections or parenchymal mass lesions. No hydrocephalus. No suspicious focal bone marrow lesions. Major flow voids are maintained. IMPRESSION: No acute intracranial abnormalities or mass lesions. [facility]-[id number] Procedure Note Interface, Radiology Results Incoming - 05/25/2017 4:52 PM CDT EXAMINATION: MRI BRAIN WO CONTRAST CLINICAL HISTORY: speech change COMPARISON: May 17, 2017 Findings: No intracranial hemorrhage, acute ischemia, extra-axial fluid collections or parenchymal mass lesions. No hydrocephalus. No suspicious focal bone marrow lesions. Major flow voids are maintained. IMPRESSION: No acute intracranial abnormalities or mass lesions. [facility]-[id number] Performing Organization Address City/State/Zipcode Phone Number [facility] [address] [facility] [place] [address] Partial thromboplastin time, activated (05/25/2017 3:00 PM CDT) PTT 28.3 23.0 - 36.0 sec [facility] DEPARTMENT OF PATHOLOGY Comment: AND GENOMIC MEDICINE PTT therapeutic range for unfractionated heparin is 61.0-112.0 seconds which corresponds to Anti-Xa 0.3-0.7 U/ml. Specimen Blood Performing Organization Address City/[facility]/Zipcode Phone Number [facility] OF [facility] AND [address] [place] [address] Prothrombin time with INR (05/25/2017 3:00 PM CDT) Prothrombin time 13.3 12.0 - 15.0 sec [facility] DEPARTMENT OF PATHOLOGY AND GENOMIC MEDICINE INR 1.0 [facility] DEPARTMENT OF Comment: PATHOLOGY AND GENOMIC The International Normalized Ratio (INR) is a therapeutic MEDICINE monitoring tool for patients who are stable on oral anticoagulant therapy. An INR of 2.0-3.0 is suggested for deep vein thrombosis/pulmonary embolism. Specimen Blood Performing Organization Address St. [facility] Phone Number [facility] DEPARTMENT OF PATHOLOGY AND [address] [place] [address] CBC with platelet and differential (05/25/2017 3:00 PM CDT)Only the most recent of10 resultswithin the time period is included. WBC 8.10 4.50 - 11.00 k/uL [facility] DEPARTMENT OF PATHOLOGY AND GENOMIC MEDICINE RBC 3.79 (L) 4.20 - 5.50 m/uL [facility] DEPARTMENT OF PATHOLOGY AND GENOMIC MEDICINE HGB 11.2 (L) 12.0 - 16.0 g/dL [facility] DEPARTMENT OF PATHOLOGY AND GENOMIC MEDICINE HCT 35.0 (L) 37.0 - 47.0 % [facility] DEPARTMENT OF PATHOLOGY AND GENOMIC MEDICINE MCV 92.3 82.0 - 100.0 fL [facility] DEPARTMENT OF PATHOLOGY AND GENOMIC MEDICINE MCH 29.6 27.0 - 34.0 pg [facility] DEPARTMENT OF PATHOLOGY AND GENOMIC MEDICINE MCHC 32.0 31.0 - 37.0 g/dL [facility] DEPARTMENT OF PATHOLOGY AND GENOMIC MEDICINE RDW - SD 47.0 37.0 - 55.0 fL [facility] DEPARTMENT OF PATHOLOGY AND GENOMIC MEDICINE MPV 10.4 8.8 - 13.2 fL [facility] DEPARTMENT OF PATHOLOGY AND GENOMIC MEDICINE Platelet count 243 150 - 400 k/uL [facility] DEPARTMENT OF PATHOLOGY AND GENOMIC MEDICINE Nucleated RBC 0.00 /100 WBC [facility] DEPARTMENT OF PATHOLOGY AND GENOMIC MEDICINE Neutrophils 55.2 39.0 - 69.0 % [facility] DEPARTMENT OF PATHOLOGY AND GENOMIC MEDICINE Lymphocytes 34.3 25.0 - 45.0 % [facility] DEPARTMENT OF PATHOLOGY AND GENOMIC MEDICINE Monocytes 8.4 0.0 - 10.0 % [facility] DEPARTMENT OF PATHOLOGY AND GENOMIC MEDICINE Eosinophils 1.1 0.0 - 5.0 % [facility] DEPARTMENT OF PATHOLOGY AND GENOMIC MEDICINE Basophils 0.6 0.0 - 1.0 % [facility] DEPARTMENT OF PATHOLOGY AND GENOMIC MEDICINE Immature granulocytes 0.4Comment: 0.0 - 1.0 % [facility] DEPARTMENT OF "Immature PATHOLOGY AND GENOMIC granulocytes" MEDICINE (promyelocytes, myelocytes, metamyelocytes) Specimen Blood Performing Organization Address City/[facility] Phone Number [facility] DEPARTMENT OF PATHOLOGY AND [address] [place] [address] Estimated GFR (05/25/2017 2:45 PM CDT)Only the most recent of9 resultswithin the time period is included. GFR Non Af Amer 81 mL/min/1.73 m2 [facility] DEPARTMENT OF PATHOLOGY AND GENOMIC MEDICINE GFR Af Amer >90 mL/min/1.73 m2 [facility] DEPARTMENT OF Comment: PATHOLOGY AND GENOMIC Chronic kidney disease: <60 mL/min/1.73m2 MEDICINE Kidney failure: <15 mL/min/1.73m2 The estimated GFR is calculated from the IDMS-traceable Modification of Diet in Renal Disease Equation. The accuracy of the calculation is poor when the creatinine is normal. Calculated values >90 mL/min/1.73m2 are not reported. This equation has not been validated in children (<18 years), women, the elderly (>70 years), or ethnic groups other than Caucasians and Americans. Specimen Plasma specimen Performing Organization Address City/State/Zipcode Phone Number [facility] DEPARTMENT OF PATHOLOGY AND [address] [phone] [facility] Troponin (05/25/2017 2:45 PM CDT) Troponin <0.30 0.00 - 0.30 ng/mL [facility] DEPARTMENT OF PATHOLOGY Comment: AND GENOMIC MEDICINE 0.30 - 1.49 ng/mlMay indicate increased risk of acute coronary syndrome. >=1.5 ng/mlConsistent with acute myocardial infarction. The diagnostic value of a single normal or non-diagnostic result is questionable.Serial samples at 2-6 hour intervals are required to rule out acute myocardial injury. Specimen Plasma specimen Performing Organization Address [facility] Phone Number [facility] DEPARTMENT OF PATHOLOGY AND [address] [place] [address] Magnesium level (05/25/2017 2:45 PM CDT)Only the most recent of4 resultswithin the time period is included. Magnesium 1.9 1.6 - 2.6 mg/dL [facility] DEPARTMENT OF PATHOLOGY AND GENOMIC MEDICINE Specimen Plasma specimen Performing Organization Address [facility] Phone Number [facility] DEPARTMENT OF PATHOLOGY AND [address] [place] [address] Lactic acid level (05/25/2017 2:45 PM CDT) Lactic acid 1.3 0.5 - 2.2 mmol/L [facility] DEPARTMENT OF PATHOLOGY AND [facility] MEDICINE Specimen Plasma specimen Performing Organization Address [facility] Phone Number [facility] DEPARTMENT OF PATHOLOGY AND [address] [place] [address] Ionized calcium (05/25/2017 2:45 PM CDT)Only the most recent of2 resultswithin the time period is included. pH 7.46 [facility] DEPARTMENT OF PATHOLOGY AND GENOMIC MEDICINE Ionized calcium 1.06 (L) 1.11 - 1.32 mmol/L [facility] DEPARTMENT OF PATHOLOGY AND [facility] Specimen Plasma specimen Performing Organization Address [facility] Phone Number [facility] DEPARTMENT OF PATHOLOGY AND [address] [place] [address] Basic metabolic panel (05/25/2017 2:45 PM CDT)Only the most recent of9 resultswithin the time period is included. Sodium 142 135 - 148 mEq/L [facility] DEPARTMENT OF PATHOLOGY AND GENOMIC MEDICINE Potassium 4.0 3.5 - 5.0 mEq/L [facility] DEPARTMENT OF PATHOLOGY AND GENOMIC MEDICINE Chloride 107 98 - 112 mEq/L [facility] DEPARTMENT OF PATHOLOGY AND GENOMIC MEDICINE CO2 24 24 - 31 mEq/L [facility] DEPARTMENT OF PATHOLOGY AND GENOMIC MEDICINE Anion gap 11 7 - 15 mEq/L [facility] DEPARTMENT OF PATHOLOGY Comment: AND GENOMIC [facility] Starting from May , anion gap calculation no longer incorporates potassium. Please note the change. BUN 10 6 - 20 mg/dL [facility] DEPARTMENT OF PATHOLOGY AND GENOMIC MEDICINE Creatinine 0.8 0.5 - 0.9 mg/dL [facility] DEPARTMENT OF PATHOLOGY AND GENOMIC MEDICINE Glucose 297 (H) 65 - 99 mg/dL [facility] DEPARTMENT OF PATHOLOGY AND [facility] MEDICINE Calcium 8.1 (L) 8.3 - 10.2 mg/dL [facility] DEPARTMENT OF PATHOLOGY AND [facility] Specimen Plasma specimen Performing Organization Address [facility] Phone Number [facility] DEPARTMENT OF PATHOLOGY AND [address] [place] [id number] [facility] ECG 12 lead (05/25/2017 2:30 PM CDT)Only the most recent of4 resultswithin the time period is included. Ventricular rate 103 [facility]USE Atrial rate 103 [facility] UT interval 160 [facility] QRSD interval 72 [facility] QT interval 340 [facility] QTC interval 445 [facility] MUSE P axis 1 59 [facility] M[facility] QRS axis 1 17 [facility] MUSE T wave axis 41 [facility] MUSE EKG impression Sinus tachycardia-Possible Left atrial [facility] MUSE enlargement-Borderline ECG-In automated comparison with ECG of 19-MAY-2017 11:39,-No significant change was found- Performing Organization Address [facility] Phone Number [facility] MUSE [address] [place] [address] POC glucose (05/25/2017 2:16 PM CDT) POC glucose 104 (H) 65 - 99 mg/dL [facility] DEPARTMENT OF PATHOLOGY AND Comment: [facility] Notified RN Meter ID: [id number] Film Cleaner: Anna Cano I Performing Organization Address [facility]/Zipcode Phone Number [facility] DEPARTMENT OF PATHOLOGY AND [address] [place] [address] [facility] Zinc level, serum (05/25/2017 6:00 AM CDT) Zinc 61 60 - 120 ug/dL [facility] Comment: INTERPRETIVE INFORMATION: Zinc, Serum or Plasma Circulating zinc concentrations are dependent on albumin status and are depressed with malnutrition. Zinc may also be lowered with infection, inflammation, stress, oral contraceptives, and . Zinc may be elevated with zinc supplementation or fasting. Elevated zinc concentrations may interfere with copper absorption. Test developed and characteristics determined by [facility]. See Compliance Statement B: [email or web address] Performed by [facility], [address] [place] [address] [email or web address], Ferny Rodríguez MD - Lab. Director Specimen Blood Performing Organization Address City/State/Zipcode Phone Number [facility] [address] [place] [address] CTA Head W Wo Contrast (05/21/2017 8:16 PM CDT) Narrative Performed At EXAMINATION: CT ANGIOGRAM HEAD W WO CONTRAST [facility] CLINICAL HISTORY: HEADACHEACUTESEVERETHUNDERCLAPWORST GREEN OF LIFE, VENOGRAM [...] aneurysmal dilatation or vascular malformation of the [place]. The major dural sinuses are opacified normally. The internal cerebral veins opacify. IMPRESSION: No hemodynamically significant narrowing of the [place] vessels. No evidence of dural sinus or venous thrombosis. [facility]-[id number] Procedure Note Hm Interface, Radiology Results Incoming - 05/22/2017 12:12 [...] aneurysmal dilatation or vascular malformation of the [place]. The major dural sinuses are opacified normally. The internal cerebral veins opacify. IMPRESSION: No hemodynamically significant narrowing of the [place] vessels. No evidence of dural sinus or venous thrombosis. [facility]-[id number] Performing Organization Address [facility] Phone Number [facility] [address] [place] [address] CT Cervical Spine Wo Contrast (05/21/2017 8:04 PM CDT) Narrative Performed At EXAMINATION: CT CERVICAL SPINE WO CONTRAST [facility] CLINICAL HISTORY: headacheimbalance COMPARISON:None TECHNIQUE: Noncontrast enhanced [...] degenerative change. IMPRESSION: No acute osseous abnormality. [facility]-[id number] Procedure Note Hm Interface, Radiology Results Incoming [...] degenerative change. IMPRESSION: No acute osseous abnormality. [facility]-[id number] Performing Organization Address [facility]/Zipcode Phone Number [facility] [address] [place] [address] LISY (05/21/2017 4:24 PM CDT) LISY screen Negative Negative [facility] DEPARTMENT OF PATHOLOGY AND GENOMIC MEDICINE Specimen Blood Performing Organization Address [facility] Phone Number [facility] DEPARTMENT OF PATHOLOGY AND [address] [place] [address] GENOMIC MEDICINE Folate level (05/21/2017 4:24 PM CDT) Folate 7.3 4.8 - 24.2 ng/mL [facility] DEPARTMENT OF PATHOLOGY AND GENOMIC MEDICINE Specimen Serum Performing Organization Address City/[facility] Phone Number [facility] DEPARTMENT OF PATHOLOGY AND [address] [place] [address] [facility] Vitamin B12 level (05/21/2017 4:24 PM CDT)Only the most recent of2 resultswithin the time period is included. Vitamin B12 688 211 - 946 pg/mL [facility] DEPARTMENT OF PATHOLOGY Comment: AND [facility] Significant overlap exists between normal and deficiency states. However, most patients with deficiencies will have Serum B12 <200 pg/mL. Specimen Serum Performing Organization Address City/[facility] Phone Number [facility] DEPARTMENT OF PATHOLOGY AND [address] [place], [place] [id number] [facility] MEDICINE Smear review (05/19/2017 5:10 AM CDT) Platelet slide review David adequate [facility] DEPARTMENT OF PATHOLOGY AND GENOMIC MEDICINE Tear drop cells Occasional [facility] DEPARTMENT OF PATHOLOGY AND GENOMIC MEDICINE Ovalocytes Moderate [facility] DEPARTMENT OF PATHOLOGY AND GENOMIC MEDICINE Performing Organization Address [facility] Phone Number [facility] DEPARTMENT OF PATHOLOGY AND [address] [place] [address] [facility] IgG synthesis rate study (05/17/2017 2:53 PM CDT) IgG albumin ratio, CSF 0.12 0.00 - 0.23 [facility] DEPARTMENT OF PATHOLOGY AND GENOMIC MEDICINE IgG index, CSF 0.66 (H) 0.01 - 0.63 [facility] DEPARTMENT OF PATHOLOGY AND GENOMIC MEDICINE IgG synthetic rate 1.75 -9.90 - 3.30 mg/day [facility] DEPARTMENT OF PATHOLOGY AND GENOMIC MEDICINE Q-albumin ratio, CSF 3.96 2.00 - 7.50 [facility] DEPARTMENT OF PATHOLOGY AND GENOMIC MEDICINE IgG, CSF 1.15 1.00 - 3.00 mg/dL [facility] DEPARTMENT OF PATHOLOGY AND GENOMIC MEDICINE Albumin, CSF <9.50 (L) 10.00 - 30.00 mg/dL [facility] DEPARTMENT OF PATHOLOGY AND GENOMIC MEDICINE IgG 437 (L) 700 - 1,600 mg/dL [facility] DEPARTMENT OF PATHOLOGY AND GENOMIC MEDICINE Albumin, S 2,400.0 (L) 3,640.0 - 5,304.0 mg/dL [facility] DEPARTMENT OF PATHOLOGY AND GENOMIC MEDICINE Specimen Cerebrospinal fluid Performing Organization Address City/[facility] Phone Number [facility] DEPARTMENT OF PATHOLOGY AND [address] [place] [address] GENOMIC [facility] Cytomegalovirus by PCR (05/17/2017 2:53 PM CDT) Cytomegalovirus by PCR Not-Detected Not-Detected IU/mL [facility] DEPARTMENT OF PATHOLOGY AND GENOMIC MEDICINE Cytomegalovirus by PCR See link below for [facility] DEPARTMENT OF PDF Lab PATHOLOGY AND GENOMIC ReportComment: Case MEDICINE Number: [id number] Performing Organization Address City/State/[facility] Phone Number [facility] DEPARTMENT OF PATHOLOGY AND [address] [place] [address] Varicella zoster by PCR (05/17/2017 2:53 PM CDT) VZV result Not-Detected Not-Detected [facility] DEPARTMENT OF copies/mL PATHOLOGY AND GENOMIC MEDICINE Varicella zoster, PCR See link below for [facility] DEPARTMENT OF PDF Lab PATHOLOGY AND GENOMIC ReportComment: Case MEDICINE Number: [id number] Performing Organization Address City/[facility] Phone Number [facility] DEPARTMENT OF PATHOLOGY AND [address] [place] [address] Herpes simplex virus by PCR (05/17/2017 2:53 PM CDT) Herpes virus, PCR Not-Detected Not-Detected [facility] DEPARTMENT OF PATHOLOGY AND GENOMIC MEDICINE Herpes virus, PCR See link below for PDF [facility] DEPARTMENT OF PATHOLOGY Lab ReportComment: Case AND GENOMIC MEDICINE Number: [id number] Performing Organization Address City/[facility] Phone Number [facility] DEPARTMENT OF PATHOLOGY AND [address] [place] [address] Lynda Malone Virus (EBV) by PCR (05/17/2017 2:53 PM CDT) Lynda Malone virus, PCR Not-Detected Not-Detected [facility] DEPARTMENT OF copies/mL PATHOLOGY AND GENOMIC MEDICINE Lynda Malone virus, PCR See link below for [facility] DEPARTMENT OF PDF Lab PATHOLOGY AND GENOMIC ReportComment: Case MEDICINE Number: [id number] Performing Organization Address City/[facility] Phone Number [facility] DEPARTMENT OF PATHOLOGY AND [address] [place] [address] AFB culture (05/17/2017 2:53 PM CDT) AFB culture isolate No growth after 6 weeks of incubation. [facility] DEPARTMENT OF PATHOLOGY Comment: AND GENOMIC MEDICINE Specimen Information Specimen Source: CSF (Spinal Fluid) Specimen Site: No tube number noted Specimen Cerebrospinal fluid - No tube number noted Performing Organization Address City/State/Zipcode Phone Number [facility] DEPARTMENT OF PATHOLOGY AND [address] [place] [address] Cryptococcal antigen, screen (05/17/2017 2:53 PM CDT) Cryptococcal Ag Negative - No Cryptococcus antigen detected. [facility] DEPARTMENT OF PATHOLOGY Comment: AND GENOMIC MEDICINE Specimen Information Specimen Source: CSF (Spinal Fluid) Specimen Site: No tube number noted Specimen Cerebrospinal fluid - No tube number noted Performing Organization Address City/State/Zipcode Phone Number [facility] DEPARTMENT OF PATHOLOGY AND [address] [place] [address] Enterovirus by PCR (05/17/2017 2:53 PM CDT) Enterovirus PCR Not-Detected Not-Detected [facility] DEPARTMENT OF PATHOLOGY AND GENOMIC MEDICINE Enterovirus PCR See link below for PDF Lab [facility] DEPARTMENT OF PATHOLOGY ReportComment: Case AND GENOMIC MEDICINE Number: [id number] Performing Organization Address City/State/[facility] Phone Number [facility] DEPARTMENT OF PATHOLOGY AND [address] [place] [address] Gram stain (05/17/2017 2:53 PM CDT) Gram stain isolate Rare WBC's [facility] DEPARTMENT OF PATHOLOGY No organisms seen AND [facility] Comment: Specimen Information Specimen Source: CSF (Spinal Fluid) Specimen Site: No tube number noted Specimen Cerebrospinal fluid - No tube number noted Performing Organization Address City/[facility] Phone Number [facility] DEPARTMENT OF PATHOLOGY AND [address] [place] [address] CSF culture (05/17/2017 2:53 PM CDT) CSF culture isolate No growth after 3 days. [facility] DEPARTMENT OF PATHOLOGY Comment: AND [facility] MEDICINE Specimen Information Specimen Source: CSF (Spinal Fluid) Specimen Site: No tube number noted Specimen Cerebrospinal fluid - No tube number noted Performing Organization Address City/State/Zipcode Phone Number [facility] DEPARTMENT OF PATHOLOGY AND [address] [place] [address] [facility] Fungus culture (05/17/2017 2:53 PM CDT) Fungus culture isolate No growth after 4 weeks of incubation. [facility] DEPARTMENT OF Comment: PATHOLOGY AND GENOMIC Specimen Information MEDICINE Specimen Source: CSF (Spinal Fluid) Specimen Site: No tube number noted Specimen Cerebrospinal fluid - No tube number noted Performing Organization Address [facility] Phone Number [facility] DEPARTMENT OF PATHOLOGY AND [address] [place] [address] CSF cell count with differential (05/17/2017 2:53 PM CDT) Color, CSF Colorless [facility] DEPARTMENT OF PATHOLOGY AND GENOMIC MEDICINE Appearance, CSF Clear [facility] DEPARTMENT OF PATHOLOGY AND GENOMIC MEDICINE RBC, CSF 2,150 (H) 0 - 1 /CMM [facility] DEPARTMENT OF PATHOLOGY AND GENOMIC MEDICINE WBC, CSF 1 0 - 5 /CMM [facility] DEPARTMENT OF Comment: PATHOLOGY AND GENOMIC Corrected result(s) called to STEPHANY LORA/SHERYL (name/location) at2017 MEDICINE 19:01 (date/time) by [place]__. Corrected result; previously reported as 7 on 05/17/2017 at 17:58 by [place] CSF mononuclear cell 1/CMM [facility] DEPARTMENT OF PATHOLOGY AND GENOMIC MEDICINE Specimen Cerebrospinal fluid Performing Organization Address [facility] Phone Number [facility] DEPARTMENT OF PATHOLOGY AND [address] [place] [address] Protein, CSF (05/17/2017 2:53 PM CDT) Protein, CSF 18 15 - 45 mg/dL [facility] DEPARTMENT OF PATHOLOGY AND GENOMIC MEDICINE Specimen Cerebrospinal fluid Performing Organization Address [facility] Phone Number [facility] DEPARTMENT OF PATHOLOGY AND [address] [place] [address] Glucose level, CSF (05/17/2017 2:53 PM CDT) Glucose, CSF 62 40 - 70 mg/dL [facility] DEPARTMENT OF PATHOLOGY AND GENOMIC MEDICINE Specimen Cerebrospinal fluid Performing Organization Address [facility] Phone Number [facility] DEPARTMENT OF PATHOLOGY AND [address] [place] [address] IR Lumbar Puncture by Radiology (05/17/2017 1:52 PM CDT) Narrative Performed At EXAMINATION:IR LUMBAR PUNCTURE [facility] CLINICAL HISTORY:HEADACHE COMPARISON:None. FINDINGS: Informed consent was [...] puncture to evaluate for headache and meningitis. [facility]-[id number] Procedure Note Interface, Radiology Results Incoming - [...] puncture to evaluate for headache and meningitis. [facility]-[id number] Performing Organization Address City/State/Zipcode Phone Number [facility] [address] [place] [address] CT Stroke Brain Wo Contrast (05/17/2017 9:04 AM CDT) Narrative Performed At EXAMINATION: CT STROKE BRAIN WO [facility] CLINICAL HISTORY: STROKE COMPARISON: NONE TECHNIQUE: Noncontrast [...] no other macrostructural abnormalities within the cerebral hemispheres, basal ganglia, brainstem or cerebellum. The visualized bony structures are unremarkable. The paranasal sinuses are well aerated. Mastoid air cells and orbits are grossly unremarkable. IMPRESSION: Negative for acute intracranial abnormality, mass, hemorrhage, extra-axial fluid collection or hydrocephalus. Findings discussed withKEESHA Chanel on 05/17/2017 9:08 AM , and she verbalized understanding of the report. [id number] Procedure Note Interface, Radiology Results Incoming - [...] and she verbalized understanding of the report. [id number] Performing Organization Address City/State/Zipcode Phone Number [facility] [address] [place] [address] CBC hemogram (05/15/2017 5:00 AM CDT)Only the most recent of2 resultswithin the time period is included. WBC 5.20 4.50 - 11.00 k/uL [facility] DEPARTMENT OF PATHOLOGY AND GENOMIC MEDICINE RBC 3.80 (L) 4.20 - 5.50 m/uL [facility] DEPARTMENT OF PATHOLOGY AND GENOMIC MEDICINE HGB 11.3 (L) 12.0 - 16.0 g/dL [facility] DEPARTMENT OF PATHOLOGY AND GENOMIC MEDICINE HCT 35.5 (L) 37.0 - 47.0 % [facility] DEPARTMENT OF PATHOLOGY AND GENOMIC MEDICINE MCV 93.4 82.0 - 100.0 fL [facility] DEPARTMENT OF PATHOLOGY AND GENOMIC MEDICINE MCH 29.7 27.0 - 34.0 pg [facility] DEPARTMENT OF PATHOLOGY AND GENOMIC MEDICINE MCHC 31.8 31.0 - 37.0 g/dL [facility] DEPARTMENT OF PATHOLOGY AND GENOMIC MEDICINE RDW - SD 45.9 37.0 - 55.0 fL [facility] DEPARTMENT OF PATHOLOGY AND GENOMIC MEDICINE MPV 10.8 8.8 - 13.2 fL [facility] DEPARTMENT OF PATHOLOGY AND GENOMIC MEDICINE Platelet count 210 150 - 400 k/uL [facility] DEPARTMENT OF PATHOLOGY AND GENOMIC MEDICINE Nucleated RBC 0.00 /100 WBC [facility] DEPARTMENT OF PATHOLOGY AND GENOMIC MEDICINE Specimen Blood Performing Organization Address [facility] Phone Number [facility] DEPARTMENT OF PATHOLOGY AND [address] [place] [address] MEDICINE Thyroid stimulating hormone (05/15/2017 5:00 AM CDT) TSH 2.19 0.27 - 4.20 uIU/mL [facility] DEPARTMENT OF PATHOLOGY AND GENOMIC MEDICINE Specimen Plasma specimen Performing Organization Address [facility] [facility] Phone Number [facility] DEPARTMENT OF PATHOLOGY AND [address] [place] [address] GENOMIC MEDICINE T4, free (05/15/2017 5:00 AM CDT) T4, free 1.0 0.9 - 1.7 ng/dL [facility] DEPARTMENT OF PATHOLOGY AND GENOMIC MEDICINE Specimen Plasma specimen Performing Organization Address [facility] Phone Number [facility] DEPARTMENT OF PATHOLOGY AND [address] [place] [address] GENOMIC [facility] Phosphorus level (05/15/2017 5:00 AM CDT)Only the most recent of2 resultswithin the time period is included. Phosphorus 3.1 2.4 - 4.5 mg/dL [facility] DEPARTMENT OF PATHOLOGY AND GENOMIC MEDICINE Specimen Plasma specimen Performing Organization Address [facility] Phone Number [facility] DEPARTMENT OF PATHOLOGY AND [address] [place] [address] GENOMIC MEDICINE Lipid panel (05/15/2017 5:00 AM CDT) Cholesterol 240 (H) <200 mg/dL [facility] DEPARTMENT OF PATHOLOGY AND GENOMIC MEDICINE Triglycerides 184 (H) <150 mg/dL [facility] DEPARTMENT OF PATHOLOGY AND GENOMIC MEDICINE HDL cholesterol 72 >40 mg/dL [facility] DEPARTMENT OF PATHOLOGY AND GENOMIC MEDICINE LDL cholesterol 154 (H)Comment: Result <100 mg/dL [facility] DEPARTMENT OF obtained by direct LDL PATHOLOGY AND GENOMIC measurement MEDICINE Lipid panel interpretation SeeBelow [facility] DEPARTMENT OF Comment: PATHOLOGY AND GENOMIC Total Cholesterol (mg/dL) MEDICINE <200 Desirable [phone]-zvtn >=240High Triglycerides (mg/dL) <150 Normal 331-361Mulavxngyp-ncbu 200-499High >=500Very high HDL Cholesterol (mg/dL) <40Low (male) <40Low (female) LDL Cholesterol (mg/dL) <100 Optimal 100-129Near or above optimal 401-323Styanuhvvo-csdq 160-189High >=190Very high Risk Catergories that modify [...] persons with high triglycerides (>=200 mg/dL) Specimen Plasma specimen Performing Organization Address City/State/Zipcode Phone Number [facility] DEPARTMENT OF PATHOLOGY AND [address] [place] [address] GENOMIC MEDICINE Hemoglobin A1c (05/14/2017 5:15 PM CDT)Only the most recent of2 resultswithin the time period is included. Hemoglobin A1C 5.4 4.0 - 5.6 % [facility] DEPARTMENT OF PATHOLOGY Comment: AND GENOMIC MEDICINE HbA1c cutoffs for diagnosing diabetes: 4.0% - 5.6%=normal 5.7% - 6.4%=increased risk for diabetes (prediabetes) >=6.5%=diabetes Goals for glycemic control (ADA 2016) < 7.0%Target for non adults with diabetes. More or less stringent targets may be appropriate for individual patients. <7.5% Target for Children and adolescents with type 1 diabetes. Performing Organization Address City/[facility]/Zipcode Phone Number [facility] DEPARTMENT OF PATHOLOGY AND [address] [place] [address] MEDICINE Urinalysis screen and microscopy, with reflex to culture (05/14/2017 3:38 PM CDT) Specimen site Clean catch [facility] DEPARTMENT OF PATHOLOGY AND GENOMIC MEDICINE Color, UA Straw [facility] DEPARTMENT OF PATHOLOGY AND GENOMIC MEDICINE Appearance, UA Clear [facility] DEPARTMENT OF PATHOLOGY AND GENOMIC MEDICINE Specific gravity, UA 1.008 1.001 - 1.035 [facility] DEPARTMENT OF PATHOLOGY AND GENOMIC MEDICINE pH, UA 6.0 5.0 - 8.5 [facility] DEPARTMENT OF PATHOLOGY AND GENOMIC MEDICINE Protein, UA Negative Negative [facility] DEPARTMENT OF PATHOLOGY AND GENOMIC MEDICINE Glucose, UA Negative Negative [facility] DEPARTMENT OF PATHOLOGY AND GENOMIC MEDICINE Ketones, UA Negative Negative [facility] DEPARTMENT OF PATHOLOGY AND GENOMIC MEDICINE Bilirubin, UA Negative Negative [facility] DEPARTMENT OF PATHOLOGY AND GENOMIC MEDICINE Blood, UA Negative Negative [facility] DEPARTMENT OF PATHOLOGY AND GENOMIC MEDICINE Nitrite, UA Negative Negative [facility] DEPARTMENT OF PATHOLOGY AND GENOMIC MEDICINE Urobilinogen, UA <2.0 <2.0 [facility] DEPARTMENT OF PATHOLOGY AND GENOMIC MEDICINE Leukocyte esterase, UA Negative Negative [facility] DEPARTMENT OF PATHOLOGY AND GENOMIC MEDICINE Epithelial cells, UA 3 /HPF [facility] DEPARTMENT OF PATHOLOGY AND GENOMIC MEDICINE WBC, UA <1 0 - 4 /HPF [facility] DEPARTMENT OF PATHOLOGY AND GENOMIC MEDICINE RBC, UA None seen 0 - 5 /HPF [facility] DEPARTMENT OF PATHOLOGY AND GENOMIC MEDICINE Bacteria, UA Few None seen [facility] DEPARTMENT OF PATHOLOGY AND GENOMIC MEDICINE Yeast, UA None seen [facility] DEPARTMENT OF PATHOLOGY AND GENOMIC MEDICINE Yeast with pseudohyphae, UA None seen [facility] DEPARTMENT OF PATHOLOGY AND GENOMIC MEDICINE Specimen Urine Performing Organization Address City/[facility]code Phone Number [facility] DEPARTMENT OF PATHOLOGY AND [address] [place] [address] [facility] MEDICINE hCG qualitative, urine screen (05/14/2017 3:38 PM CDT) hCG qualitative, urine NegativeComment: [facility] DEPARTMENT OF Sensitivity of HCG test: 25 PATHOLOGY AND GENOMIC mIU/mL MEDICINE Specimen Urine Performing Organization Address City/[facility]/Zipcode Phone Number [facility] DEPARTMENT OF PATHOLOGY AND [address] [place] [address] [facility] MEDICINE Urine culture (05/14/2017 3:38 PM CDT) Urine culture SEE COMMENTComment: Bacteriuria [facility] DEPARTMENT OF PATHOLOGY screen negative. AND GENOMIC MEDICINE Specimen Urine Performing Organization Address [facility] Phone Number [facility] DEPARTMENT OF PATHOLOGY AND [address] [place] [address] GENOMIC MEDICINE Valproic acid level (05/14/2017 3:34 PM CDT) Valproic acid 33.6 (L) 50.0 - 100.0 ug/mL [facility] DEPARTMENT OF PATHOLOGY AND Comment: GENOMIC MEDICINE Therapeutic Range: 50 - 100 ug/mL Specimen Plasma specimen Performing Organization Address City/[facility]code Phone Number [facility] DEPARTMENT OF PATHOLOGY AND [address] [place] [address] GENOMIC MEDICINE PV duplex venous upper extremity (05/14/2017 3:00 PM CDT) Narrative Performed At [facility] Vascular Ultrasound Laboratory Upper Extremity Venous Report [address] [place] [address] Pat.Name:LUIS FELIPE MCCRARY.ID:[id number] .Date: 05/14/2017Refer.MD:PHYSICIAN, EMERGENCY, MD Exam Time: 2:39:00 PMStudy Type:UE Venous DOBAge:1980,37YSex: FEMALE Sonogrphr: Bandar Toleod RVT Room:ER TapeVol: DI, CPT - 4: 48863 Echo Event ID:[id number] Order ID:[id number] Reason for Study:Right upper extremity edema and [...] preliminary results given to Dr. Leyva @ 0645 PHYSICIAN INTERPRETATION 1.Venous examination of the right upper extremity, neck and left subclavian vein demonstratesthrombosis right cephalic vein Signed 05/14/2017 03:42 PM Louis Kaba MD Procedure Note Interface, Radiology Results In - 05/14/2017 3:43 PM CDT Vascular Ultrasound Laboratory Upper Extremity Venous Report [address] [place] [address] Pat.Name: LUIS FELIPE MCCRARY Pat.ID: [id number] .Date: 05/14/2017 Refer.MD: PHYSICIAN, EMERGENCY, MD Exam Time: 2:39:00 PM Study Type:UE Venous Age: 2 1980,37Y Sex: FEMALE Sonogrphr: Bandar [place] RVT Room: ER Tape Vol: VB, CPT - 4: 01617 Echo Event ID:[id number] Order ID: [id number] Reason for Study:Right upper extremity edema and [...] preliminary results given to Dr. Leyva @ [facility] [place] PHYSICIAN INTERPRETATION 1. Venous examination of the right upper extremity, neck and left subclavian vein demonstrates thrombosis right cephalic vein Signed 05/14/2017 03:42 PM Louis Kaba MD Performing Organization Address City/State/Zipcode Phone Number [facility] [address] [place] [address] CT Abdomen Pelvis W Contrast (04/29/2017 12:25 PM CDT) Narrative Performed At EXAMINATION:CT ABDOMEN PELVIS W CONTRAST HM [facility] CLINICAL HISTORY:R10.84 Generalized abdominal pain, ABDOMINAL PAIN [...] aorta is unremarkable. Osseous structures are intact. [facility]-[id number] Procedure Note Interface, Radiology Results Incoming - [...] aorta is unremarkable. Osseous structures are intact. [facility]-[id number] Performing Organization Address City/State/Zipcode Phone Number [facility] [address] [place] [address] Lipase level (04/14/2017 11:23 AM SENIOR FIRE PROTECTION ENGINEER)Only the most recent of2 resultswithin the time period is included. Lipase 20 7 - 60 U/L [employer] [place] Specimen Blood Narrative Performed At FASTING:NO [facility] FASTING: NO Resulting Agency Comment Performing Organization Information: Site ID: [facility] Name: [facility] Lab Address: [address] [place], [place] [id number] Director: Tierra Vance MD Performing Organization Address [facility] Hospital[facility] [place] [address] Amylase level (04/14/2017 11:23 AM SENIOR FIRE PROTECTION ENGINEER)Only the most recent of2 resultswithin the time period is included. Amylase 56 21 - 101 U/L [employer] [place] Specimen Blood Narrative Performed At FASTING:NO [facility] FASTING: NO Resulting Agency Comment Performing Organization Information: Site ID: [facility] Name: [facility] Address: [address] [place], [place] [id number] Director: Tierra Vance MD Performing Organization Address [facility] Phone Number [facility] [address] Comprehensive metabolic panel (04/14/2017 11:23 AM SENIOR FIRE PROTECTION ENGINEER)Only the most recent of2 resultswithin the time period is included. Glucose 115 (H) 65 - 99 mg/dL [employer] Comment: [place] Fasting reference interval For someone without known diabetes, a glucose value between 100 and 125 mg/dL is consistent with prediabetes and should be confirmed with a follow-up test. BUN, whole blood 9 7 - 25 mg/dL [facility] [place] Creatinine 0.82 0.50 - 1.10 mg/dL [facility] [place] EGFR Non-Afr. Prydeinig 92 > OR=60 [facility] mL/min/1.73m2 [place] EGFR 107 > OR=60 [facility] mL/min/1.73m2 [place] BUN/creatinine ratio NOT APPLICABLE 6 - 22 (calc) [facility] [place] Sodium 139 135 - 146 mmol/L [facility] [place] Potassium 4.7 3.5 - 5.3 mmol/L [facility] Chloride 102 98 - 110 mmol/L [facility] [place] CO2 30 20 - 31 mmol/L [facility] [place] Calcium 9.1 8.6 - 10.2 mg/dL [facility] [place] Protein 6.5 6.1 - 8.1 g/dL [facility] [place] Albumin, S 3.9 3.6 - 5.1 g/dL [facility] [place] Globulin, total 2.6 1.9 - 3.7 g/dL [facility] (calc) [place] Albumin/globulin ratio 1.5 1.0 - 2.5 (calc) [facility] [place] Total bilirubin 0.2 0.2 - 1.2 mg/dL [facility] Alkaline phosphatase 62 33 - 115 U/L [facility]ST[facility] [place] AST 11 10 - 30 U/L [facility] [place] ALT 8 6 - 29 U/L [facility] [place] Specimen Blood Narrative Performed At FASTING:NO [facility] FASTING: NO Resulting Agency Comment Performing Organization Information: Site ID: [id number] Name: [facility] Address: [address] [place] [phone] Director: Tierra Vance MD Performing Organization Address City/State/Zipcode Phone Number [facility] [place] [phone] HLA Typing for Celiac Disease (04/06/2017 11:52 AM SENIOR FIRE PROTECTION ENGINEER) Interpretation see note [facility] Comment: [facility]/[place] The patient does not have the HLA-DQ variants [facility] associated with celiac disease. More than 97% of celiac patients carry either HLA-DQ2(DQA1*05/DQB1*02) or HLA-DQ8(DQA1*03/DQB1*0302) or both. Genetic counseling as needed. HLA DQ2 Negative [facility] HLA DQ8 Negative [facility] [facility] HLA variants detected: HLA 1 [facility] DQA1 [facility]/[place] HLA DQA1 1 [facility] HLA DQB1 501 [facility] HLA DQB1 604 [facility] Reviewed by see note [facility] Comment: [facility] Steve Galarza, Ph.D., [facility] Director, Molecular Genetics Typing performed by PCR and hybridization with sequence specific oligonucleotide probes (SSO) using the FDA-cleared LABType(R) SSO Kit. Specimen Blood Narrative Performed At FASTING:NO [facility] FASTING: NO Resulting Agency Comment Performing Organization Information: Site ID: TRUE Name: Janeth Bai/Aditi [facility] Address: [address] [place] [address] Director: John Morales M.D.,PhD Performing Organization Address City/[facility]/Zipcode Phone Number JANETH BAI/ADITI [address] [place], [place] LISY SCREEN W IFA W REFLEX TO TITER (03/16/2017 9:07 AM SENIOR FIRE PROTECTION ENGINEER) LISY screen NEGATIVE NEGATIVE [employer] II Comment: LISY IFA is a first line screen for detecting the presence of up to approximately 150 autoantibodies in various autoimmune diseases. A negative LISY IFA result suggests LISY-associated autoimmune diseases are not present at this time. Visit Physician FAQs for interpretation of all antibodies in the [place], prevalence, and association with diseases at http://education.Rupture/ faq/MSN079 Specimen Blood Narrative Performed At FASTING:YES [facility] FASTING: YES Resulting Agency Comment Performing Organization Information: Site ID: IG Name: [facility] Address: [address] [place] [phone] Director: Dr. Jacek Andujar Performing Organization Address [facility] Hospitalcode Phone Number [employer] [address] [address] TEST AUTHORIZATION (03/16/2017 9:07 AM SENIOR FIRE PROTECTION ENGINEER) TEST(S) ORDERED ON CELIAC DISEASE [facility] REQUISITION COMPREHENSIVE DI[facility]-[place] II TEST CODE: [id number] [employer] II CLIENT CONTACT: JULIANA JIN [facility] DIAGNOSTICS-[place] II REPORT ALWAYS MESSAGE [facility] SIGNATURE Comment: DIAGNOSTICS-[place]RSITOPHER II The laboratory testing on this patient was verbally requested or confirmed by the ordering physician or his or her authorized provider service representative after contact with an employee of [facility]. Federal regulations require that we maintain on file written authorization for all laboratory testing.Accordingly we are asking that the ordering physician or his or her authorized provider service representative sign a copy of this report and promptly return it to the client delivery specialist. Signature: (Always message) [facility] Comment: [employer]-CHRISTOPHER II Please fax this signed form to [phone]. Please do not attempt to return this document by other methods. Documents will not be viewed by a provider service representative. Please do not use this fax number for other service requests. Narrative Performed At FASTING:YES [facility] FASTING: YES Resulting Agency Comment Performing Organization Information: Site ID: IG Name: [facility] Address: [address] [place] [phone] Director: Dr. Jacek Andujar Performing Organization Address City/[facility]/Zipcode Phone Number [employer] [address] SS-B antibody (03/16/2017 9:07 AM SENIOR FIRE PROTECTION ENGINEER) Sjogren's SS-B antibody <1.0 NEG <1.0 NEG AI AA Party[facility] II Specimen Blood Narrative Performed At FASTING:YES [facility] FASTING: YES Resulting Agency Comment Performing Organization Information: Site ID: IG Name: [facility] Address: [address] [place] [phone] Director: Dr. Jacek Andujar Performing Organization Address [facility]/Zipcode Phone Number [employer] [address] SS-A antibody (03/16/2017 9:07 AM SENIOR FIRE PROTECTION ENGINEER) Sjogren's SS-A antibody <1.0 NEG <1.0 NEG AI AA PartyVING II Specimen Blood Narrative Performed At FASTING:YES [facility] FASTING: YES Resulting Agency Comment Performing Organization Information: Site ID: IG Name: [facility] Address: [address] [place] [phone] Director: Dr. Jacek Andujar Performing Organization Address [facility]/Zipcode Phone Number [address] [address] Mayi-1 antibody (03/16/2017 9:07 AM SENIOR FIRE PROTECTION ENGINEER) Mayi-1 antibody <1.0 NEG <1.0 NEG AI [facility] II Specimen Blood Narrative Performed At FASTING:YES [facility] FASTING: YES Resulting Agency Comment Performing Organization Information: Site ID: IG Name: [facility] Address: [address] [place] [address] Director: Dr. Jacek Andujar Performing Organization Address [facility] Phone Number [facility] [facility] II [address] [place] [address] Acetylcholine receptor binding Ab (03/16/2017 9:07 AM SENIOR FIRE PROTECTION ENGINEER) Acetylcholine receptor <0.30 nmol/L [facility] binding Ab Comment: DIAGNOSTICS/[place] [facility] Reference Ranges for Acetylcholine Receptor Binding Antibody: Negative: < or=0.30 nmol/L Equivocal:0.31-0.49 nmol/L Positive: > or=0.50 nmol/L Specimen Blood Narrative Performed At FASTING:YES [facility] FASTING: YES Resulting Agency Comment Performing Organization Information: Site ID: [id number] Name: [facility], Address: [address] [place] [phone] Director: Richard Hodge MD,PhD Performing Organization Address [facility] Phone Number [facility] DIAGNOSTICS/[facility] [address] [place] [address] [facility] Celiac disease panel (03/16/2017 9:07 AM SENIOR FIRE PROTECTION ENGINEER) Interpretation see note [facility] Comment: DIAGNOSTICS/[facility] No serological evidence for celiac disease is present. JAGJIT Consider IgA deficiency. Tissue transglutaminase Ab, 1 <4 U/mL [facility] IgA Comment: [facility]ST[facility] [facility] Value Interpretation <4 U/mL: No Antibody Detected >or=4 U/mL: Antibody Detected IgA 47 (L) 81 - 463 mg/dL [facility] JAGJIT Narrative Performed At FASTING:YES [facility] FASTING: YES Resulting Agency Comment Performing Organization Information: Site ID: AMD Name: [facility] [facility] Address: [address] [place] [address] Director: John Morales M.D.,PhD Performing Organization Address City/[facility]/Zipcode Phone Number [facility] [employer] [address] [place] Tissue transglutaminase Ab, IgG (03/16/2017 9:07 AM SENIOR FIRE PROTECTION ENGINEER) Tissue transglutaminase Ab, 3 <6 U/mL [facility] IgG Comment: [facility] [place] Value Interpretation <6 U/mL: No Antibody Detected >or=6 U/mL: Antibody Detected Narrative Performed At FASTING:YES [facility] FASTING: YES Resulting Agency Comment Performing Organization Information: Site ID: AMD Name: [facility]/[employer] [facility] Address: [address] [place] [phone] Director: John Morales M.D.,PhD Performing Organization Address City/State/[facility] Phone Number [employer] [address] [place] [address] [phone] [place] Aldolase, serum (03/16/2017 9:07 AM SENIOR FIRE PROTECTION ENGINEER) Aldolase 2.9 < OR=8.1 U/L [employer] II Specimen Blood Narrative Performed At FASTING:YES [facility] FASTING: YES Resulting Agency Comment Performing Organization Information: Site ID: IG Name: [facility] Address: [address] [place] [phone] Director: Dr. Jacek Andujar Performing Organization Address [facility] Hospitalcode Phone Number [employer] [address] [place] [address]. [place] [address] Vitamin D 25 hydroxy level (03/16/2017 9:07 AM SENIOR FIRE PROTECTION ENGINEER) Vitamin D, 25-hydroxy 23 (L) 30 - 100 ng/mL [facility] Comment: [place] Vitamin D Status 25-OH Vitamin D: Deficiency:<20 ng/mL Insufficiency: 20 - 29 ng/mL Optimal: > or=30 ng/mL For 25-OH Vitamin D testing on patients on D2-supplementation and patients for whom quantitation of D2 and D3 fractions is required, the QuestAssureD(TM) 25-OH VIT D, (D2,D3), LC/MS/MS is recommended: order code [id number] (patients >2yrs). For more information on this test, go to: http://education.Airseed/faq/IEZ272 (This link is being provided for informational/educational purposes only.) Specimen Blood Narrative Performed At FASTING:YES [facility] FASTING: YES Resulting Agency Comment Performing Organization Information: Site ID: KERRY Name: [facility] Address: [address] [place] [phone] Director: Tierra Vance MD Performing Organization Address City/[facility]code Phone Number [facility] [place] [phone] Urinalysis, automated with microscopy (03/16/2017 9:07 AM SENIOR FIRE PROTECTION ENGINEER) Color, UA YELLOW YELLOW [employer] [place] Appearance CLEAR CLEAR [facility] [place] Specific gravity, urine 1.015 1.001 - 1.035 [facility] [place] pH, urine 6.0 5.0 - 8.0 [facility] [place] Glucose, urine NEGATIVE NEGATIVE [facility] [place] Bilirubin, UA NEGATIVE NEGATIVE [facility] [place] Ketones, UA NEGATIVE NEGATIVE [facility] [place] Occult blood, urine NEGATIVE NEGATIVE [facility] [place] Protein, UA NEGATIVE NEGATIVE [facility] [place] Nitrite, UA NEGATIVE NEGATIVE [facility] [place] Leukocyte esterase, UA NEGATIVE NEGATIVE [facility] [place] WBC, UA NONE SEEN < OR=5 /HPF [facility] [place] RBC, UA NONE SEEN < OR=2 /HPF [facility] [place] Squamous epithelial cells, UA 0-5 < OR=5 /HPF [facility] [place] Bacteria, UA NONE SEEN NONE SEEN /HPF [facility] [place] Hyaline casts, UA NONE SEEN NONE SEEN /LPF [facility] [place] Specimen Urine Narrative Performed At FASTING:YES [facility] FASTING: YES Resulting Agency Comment Performing Organization Information: Site ID: RGA Name: [facility] Address: [address] [place] [phone] Director: Tierra Vance MD Performing Organization Address City/State/Zipcode Phone Number [facility] [address] [address] Angiotensin converting enzyme (03/16/2017 9:07 AM SENIOR FIRE PROTECTION ENGINEER) Angiotensin converting enzyme 53 9 - 67 U/L [facility] II Specimen Blood Narrative Performed At FASTING:YES [facility] FASTING: YES Resulting Agency Comment Performing Organization Information: Site ID: [id number] Name: [facility] Address: [address] [place] [address] Director: Dr. Jacek Andujar Performing Organization Address City/State/Zipcode Phone Number [facility] [address] [place] [address] Complement activity, total (03/16/2017 9:07 AM SENIOR FIRE PROTECTION ENGINEER) Complement activity, total >60 (H) 31 - 60 U/mL [facility] [place] Specimen Blood Narrative Performed At FASTING:YES [facility] FASTING: YES Resulting Agency Comment Performing Organization Information: Site ID: [id number] Name: [facility] [facility] [place], Address: [address] [place] [phone] Director: Richard Hodge MD,PhD Performing Organization Address City/[facility] Phone Number [facility] [employer] [address] [place] [phone] [facility] [place] C3 complement component (03/16/2017 9:07 AM SENIOR FIRE PROTECTION ENGINEER) C3 complement 164 83 - 193 mg/dL [employer] [place] Specimen Blood Narrative Performed At FASTING:YES [facility] FASTING: YES Resulting Agency Comment Performing Organization Information: Site ID: RGA [facility] Address: [address] [place] [phone] Director: Tierra Vance MD Performing Organization Address [facility] Phone Number [facility] [address] [address] C4 complement component (03/16/2017 9:07 AM SENIOR FIRE PROTECTION ENGINEER) C4 complement 30 15 - 57 mg/dL [employer] [place] Specimen Blood Narrative Performed At FASTING:YES [facility] FASTING: YES Resulting Agency Comment Performing Organization Information: Site ID: RGA [facility]: [facility] Address: [address] [place] [phone] Director: Tierra Vance MD Performing Organization Address [facility] Phone Number [facility] [address] [address] C-reactive protein (03/16/2017 9:07 AM SENIOR FIRE PROTECTION ENGINEER) CRP 8.2 (H) <8.0 mg/L [employer] [place] Specimen Blood Narrative Performed At FASTING:YES [facility] FASTING: YES Resulting Agency Comment Performing Organization Information: Site ID: RGA Name: [facility] Address: [address] [place] [phone] Director: Tierra Vance MD Performing Organization Address City/State/[facility]code Phone Number [facility] [address] [address] Parathyroid hormone (03/16/2017 9:07 AM SENIOR FIRE PROTECTION ENGINEER) PTH 66 (H) 14 - 64 pg/mL [employer] SoftwareCHRISTOPHER Comment: II Interpretive GuideIntact PTH Calcium ------- Normal ParathyroidNormal Normal HypoparathyroidismLow or Low NormalLow Hyperparathyroidism PrimaryNormal or High High SecondaryHigh Normal or Low Tertiary High High Non-Parathyroid HypercalcemiaLow or Low NormalHigh Specimen Blood Narrative Performed At FASTING:YES [facility] FASTING: YES Resulting Agency Comment Performing Organization Information: Site ID: [id number] Name: [facility] Address: [address] [place] [phone] Director: Dr. Jacek Andujar Performing Organization Address [facility] Phone Number [facility] [address] Creatine kinase, total (CPK) (03/16/2017 9:07 AM SENIOR FIRE PROTECTION ENGINEER) Creatine kinase 82 29 - 143 U/L [employer] [place] Specimen Blood Narrative Performed At FASTING:YES [facility] FASTING: YES Resulting Agency Comment Performing Organization Information: Site ID: RGA Name: [facility] Address: [address] [place] [phone] Director: Tierra Vance MD Performing Organization Address City/[facility] Hospitalcode Phone Number [facility] [address] [address] Surgical pathology request (03/11/2017 4:43 PM SENIOR FIRE PROTECTION ENGINEER) [facility] DEPARTMENT OF PATHOLOGY AND GENOMIC MEDICINE Surgical pathology report See link below for PDF [facility] DEPARTMENT OF Lab Report PATHOLOGY AND GENOMIC MEDICINE Result status This is Final Report to [facility] DEPARTMENT OF [id number] PATHOLOGY AND GENOMIC MEDICINE Performing Organization Address City/State/Zipcode Phone Number [facility] DEPARTMENT OF PATHOLOGY AND [address] [place] [address] GENOMIC MEDICINE MRI Abdomen W Wo Contrast (03/02/2017 8:20 AM SENIOR FIRE PROTECTION ENGINEER) Narrative Performed At EXAMINATION:MRI ABDOMEN W WO CONTRAST RADIANT CLINICAL HISTORY: 37 years 1981R93.2 Abnormal findings [...] 2.Status post cholecystectomy. 3.Additional findings as above. [facility]-[id number] Procedure Note [facility], Radiology Results Incoming - 03/02/2017 8:51 AM SENIOR FIRE PROTECTION ENGINEER EXAMINATION: MRI ABDOMEN W WO CONTRAST CLINICAL [...] post cholecystectomy. 3. Additional findings as above. [facility]-[id number] Performing Organization Address City/State/Zipcode Phone Number [facility] [address] [place] [address] Total iron binding capacity (02/24/2017 1:15 PM SENIOR FIRE PROTECTION ENGINEER) Iron level 81 40 - 190 mcg/dL [employer] [place] Iron binding capacity 577 (H) 250 - 450 mcg/dL (calc) [employer] [place] Iron saturation 14 11 - 50 % (calc) [employer] [place] Specimen Blood Narrative Performed At FASTING:NO [facility] FASTING: NO Resulting Agency Comment Performing Organization Information: Site ID: RG [facility]: [facility] Address: [address] [place] [phone] Director: Tierra Vance MD Performing Organization Address [facility] Phone Number [facility] [address] [address] Reticulocyte count, automated (02/24/2017 1:15 PM SENIOR FIRE PROTECTION ENGINEER) Retic count, manual 1.6 % [facility] [place] Retic absolute, auto 65,280 20,000 - 80,000 cells/uL [employer] [place] Specimen Blood Narrative Performed At FASTING:NO [facility] FASTING: NO Resulting Agency Comment Performing Organization Information: Site ID: RGA Name: [facility] Address: [address] [place] [phone] Director: Tierra Vance MD Performing Organization Address [facility] Phone Number [facility] [address] [address] Ferritin level (02/24/2017 1:15 PM SENIOR FIRE PROTECTION ENGINEER) Ferritin level 17 10 - 154 ng/mL [employer] [place] Specimen Blood Narrative Performed At FASTING:NO [facility] FASTING: NO Resulting Agency Comment Performing Organization Information: Site ID: RGA [facility]: [facility] Address: [address] [place] [phone] Director: Tierra Vance MD Performing Organization Address City/State/Zipcode Phone Number [facility] [place] [address] [facility] [place] [phone] after 01/09/2017 Insurance Payer Benefit Plan / Group Subscriber ID Type Phone Address AETNA AETNA HMO,POS,EPO, MC/EC xxxxxxxxx HMO ([place]) [place] [address] Advance Directives Patient has advance care planning documents on file. For more information, please contact:Isidoro Gramajo[address] [place] [address]
[2018-01-10 09:22] LABS: ALT/SGPT 21 U/L (12-78); AST/SGOT 16 U/L (15-37); Albumin 3.7 g/dL (3.4-5.0); Alkaline Phosphatase 94 U/L (45-117); BUN Blood Urea Nitrogen 8 mg/dL (7-18); Bicarbonate 26 mmol/L (21-32); Bilirubin Direct < 0.1 mg/dL (0-0.2); Bilirubin Total 0.2 mg/dL (0.2-1.0); Glucose Level 93 mg/dL (74-106); Lipase 117 U/L (73-393); Potassium 4.2 mmol/L (3.5-5.1); Protein, Total 7.4 g/dL (6.4-8.2); Sodium Level 141 mmol/L (136-145)
--- OUTSIDE RECORDS SUMMARY | 2018-01-10 09:22 | XMS REPORT | Continuity of Care Document ---
:1980 Author Organization Interface Problems Problem Status Onset Classification Date Comments Source Date Reported SYNCOPE Active 08/10/[address] MIGRAINE Active 08/07/[address], [place] Discharge 03/31/19 04/03/2015 Diagnosis: 16 [place] Unspecified abdominal pain FLANK PAIN Active 03/31/19 [address] [place] Discharge 08/27/19 09/02/2014 Diagnosis: 15 [place] Abdominal pain Discharge 08/27/19 09/02/2014 Diagnosis: 15 [place] Dizziness PID Active 08/27/19 [address] [place] DIZZINESS Active 08/27/19 [address] [place] WEAKNESS Active 08/27/19 [address] [place] ABDOMINAL PAIN, Active 08/16/19 Condition 08/15/2014 Medical RIGHT LOWER 15 Group QUADRANT RADIAL VEIN Active 08/06/19 THROMBOSIS 15 [place] ARM SWELLING Active 08/06/19 15 [place] Discharge 04/04/19 04/06/2014 Diagnosis: Acute 15 [place] right lower quadrant pain ABDOMINAL PAIN Active 04/04/19 15 [place] MS Active 01/27/[address] SENT Active 01/09/20 11 [place] DVT (<span Resolved Problem [place] [facility] [id number]"> Neuro, Confirmed</span>) [facility] Endometriosis Resolved Problem 08/19/2017 [facility] [place] [facility] Hypothyroidism Active Problem 08/19/2017 [facility] [place] [facility] Valentin Guadarrama,[facility] Thyroid cancer Resolved Problem 08/19/2017 [facility] [place] [facility] Meningitis Resolved Problem 08/19/2017 [facility] [place] [facility] [place],[facility] Morbid obesity Active Problem 08/19/2017 [facility] [place] [facility] [place],[facility] Blood clot Resolved Problem 04/03/2015 [place] MIGRAINE, Active UNSPECIFIED, [place] INTRACTABLE, WITH FEM PELV INFLAM Active DIS NOS [place] AC DVT/EMBL UP Active EXT [place] SYNCOPE AND Active [facility] Medications Medication Details Route Status Patient Ordering Order Source Instructions Provider Date candesartan 4 mg 4 mg=1 tab, Active 08/15/ [facility] oral tablet PO, QAM, 1 tab 2018 Neuro every morning for 1 week, then 2 tab every morning thereafter. Decrease nortriptyline to 3 tabs at bedtime., # 60 tab, 1 Refill(s), Pharmacy: [facility]/pharmacy #[id number], for migraine headaches indomethacin 25 mg 25 mg=1 cap, [facility], BID, PRN [facility] Headache 6-10, 1 tab BID prn headache. Take with food or milk. Stop zanaflex when starting this medication., # 40 cap, 1 Refill(s), Pharmacy: [facility]/pharmacy #[id number], For migraine headaches Promethazine 25 mg=1 tab, Active 08/11[facility] [place] Hydrochloride 25 PO, Q6H, PRN 2018 Medical MG Oral Tablet Nausea & Center Vomiting, # 28 tab, 0 Refill(s), Pharmacy: [facility]/pharmacy #[id number] acetaZOLAMIDE 250 500 mg=2 tab, Active 08/11[facility] [place] mg oral tablet PO, Q12H, # 2018 Medical 120 tab, 1 Center Refill(s), [id number] Acetazolamide 500 mg, 2 tab, Inactive 08/11[facility] [place] Route: PO, 2018 Medical Drug form: Center TAB, Q12H, Dosing Weight 117.727, kg, Priority: NOW, Start date: 08/11/17 14:23:00 CDT, Duration: 30 day, Stop date: 09/10/17 9:00:00 CDTNotes: (Same as: Diamox) Magnesium Sulfate 2 gm, 50 mL, Inactive 08/11[facility] [place] Route: IVPB, 2018 Medical Drug form: Center INJ, ONCE, Dosing Weight 117.727, kg, Total dose=2 gm, Start date: 08/10/17 21:49:00 CDT, Stop date: 08/10/17 21:49:00 CDTNotes: WASTE: F/P - Sink; E - Municipal Trash Bin Zofran 4 mg, 2 mL, Inactive [place] Route: IV2017 Medical Drug form: Center INJ, ONCE, Dosing Weight 117.727, kg, Start date: 08/10/17 21:49:00 CDT, Stop date: 08/10/17 21:49:00 CDTNotes: (Same as: Zofran) MEDICATION WASTE Product Size: 4 mg Product Wasted: ___ mg Ketorolac 30 mg, 1 mL, Inactive [facility] Route: IV2017 Medical Drug form: Center INJ, ONCE, Dosing Weight 117.727, kg, Start date: 08/10/17 21:49:00 CDT, Stop date: 08/10/17 21:49:00 CDTNotes: (Same as:Toradol) IV bolus must be given >15 seconds. Give IM administration slowly and deeply into the muscle. Not for use > 4 days MEDICATION WASTE Product Size: 30 mg Product Wasted: ___ mg Ketorolac 30 mg, 1 mL, Inactive [facility] Route: 2017 Medical Drug form: [place] INJ, ONCE, Dosing Weight 117.727, kg, Priority: NOW, Start date: 08/10/17 14:45:00 CDT, Stop date: 08/10/17 14:45:00 CDTNotes: (Same as:Toradol) Give IM administration slowly and deeply into the muscle. Not for use > 4 days MEDICATION WASTE Product Size: 30 mg Product Wasted: ___ mg Zofran 4 mg, 2 mL, Inactive [facility] Route: 2017 Medical Drug form: Center INJ, ONCE, Dosing Weight 117.727, kg, Start date: 08/10/17 14:45:00 CDT, Stop date: 08/10/17 14:45:00 CDTNotes: (Same as: Zofran) MEDICATION WASTE Product Size: 4 mg Product Wasted: ___ mg Magnesium Sulfate 2 gm, 50 mL, Inactive [facility] Route: 2017 Medical Drug form: Center INJ, ONCE, Dosing Weight 117.727, kg, Total dose=2 gm, Start date: 08/10/17 14:44:00 CDT, Stop date: 08/10/17 14:44:00 CDTNotes: WASTE: F/P - Sink; E - Municipal Trash Bin nortriptyline 50 50 mg=1 cap, Active [facility] mg oral capsule PO, Bedtime, # 2018 Medical 30 cap, 1 Center Refill(s) levothyroxine 137 137 Active [place] mcg (0.137 mg) microgram=1 2018 Medical oral tablet tab, PO, Center Daily, 0 Refill(s) Nortriptyline 50 mg, 1 cap, No Longer [place] Route: PO, Active 2017 Medical Drug form: Center CAP, Daily, Dosing Weight 68.182, kg, Start date: 08/10/17 9:00:00 CDT, Duration: 30 day, Stop date: 09/08/17 9:00:00 CDTNotes: (Same as:Yobani Sagastumetycrystal) Premarin 1.25 mg, 1 No Longer [place] tab, Route: Active 2018 Medical PO, Drug form: Center TAB, Daily, Dosing Weight 68.182, kg, Start date: 08/10/17 9:00:00 CDT, Duration: 30 day, Stop date: 09/08/17 9:00:00 CDT Docusate 100 mg, 1 cap, No Longer [facility] Route: PO, Active 2017 Medical Drug form: [place] CAP, BID, Dosing Weight 68.182, kg, Start date: 08/10/17 9:00:00 CDT, Duration: 30 day, Stop date: 09/08/17 17:00:00 CDT Synthroid 112 microgram, No Longer [facility] 1 tab, Route: Active 2018 Medical PO, Drug form: [place] TAB, Q630AM, Dosing Weight 68.182, kg, Start date: 08/10/17 6:30:00 CDT, Duration: 30 day, Stop date: 09/08/17 6:30:00 CDT Phenergan 12.5 mg, 0.5 Inactive [place] mL, Route: 2018 Medical IVPB, Drug Center form: INJ, ONCE, Dosing Weight 117.727, kg, Start date: 08/10/17 2:16:00 CDT, Stop date: 08/10/17 2:16:00 CDTNotes: Do not give IV push. (Same as: Phenergan) Dexamethasone 6 mg, 1.5 mL, Inactive [place] Route: IV, 2018 Medical Drug form: [place] INJ, ONCE, Dosing Weight 117.727, kg, PRN Headache 7-10, Start date: 08/10/17 1:04:00 CDT, Pediatric DosingNotes: Concentration: 4mg/ml APAP/butalbital/ca 1 tab, Route: No Longer [place] ffeine PO, Drug Form: Active 2018 Medical TAB, Q4H, PRN Center Other -See Comment, Start date: 08/09/17 18:10:00 CDT, Duration: 30 day, Stop date: 09/08/17 18:09:00 CDT Phenergan 25 mg, 1 tab, No Longer [facility] Route: PO, Active 2017 Medical Drug form: [place] TAB, Q6H, PRN Nausea & Vomiting, Start date: 08/09/17 18:08:00 CDT, Duration: 30 day, Stop date: 09/08/17 18:07:00 CDT normal saline 0.9% 1,000 mL, Inactive [place] IV 1,000 mL Rate: 1,000 2018 Medical ml/hr, Infuse Center over: 1 hr, Route: IV, Dosing Weight 68.182 kg, Total Volume: 1,000, Start date: 08/09/17 17:27:00 CDT, Duration: 1 doses or times, Stop date: 08/09/17 18:26:00 CDT, 1.85, m2 normal saline 0.9% 1,000 mL, No Longer [facility] IV 1,000 mL Rate: 125 Active 2018 Medical ml/hr, Infuse Center over: 8 hr, Route: IV, Dosing Weight 68.182 kg, Total Volume: 1,000, Start date: 08/09/17 17:25:00 CDT, Duration: 30 day, Stop date: 09/08/17 17:24:00 CDT, 1.85, m2 Caffeine 100 MG / 1 tab, Route: Inactive [facility] Ergotamine PO, Drug Form: 2018 Medical Tartrate 1 MG Oral TAB, Dosing Center Tablet Weight 68.182, kg, Q1H, PRN, Start date: 08/09/17 17:15:00 CDT, Duration: 30 day, Stop date: 09/08/17 17:14:00 CDT, migraine Potassium Chloride 40 mEq, 2 tab, Inactive [place] Route: PO, 2018 Medical Drug form: [place] ERTAB, ONCE, Dosing Weight 68.182, kg, Start date: 08/09/17 17:07:00 CDT, Stop date: 08/09/17 17:07:00 CDT Acetaminophen 650 mg, 2 tab, No Longer [facility] Route: PO, Active 2018 Medical Drug form: Center TAB, Q4H, Dosing Weight 68.182, kg, PRN Pain 1-3/Temp > 100.4 F, Start date: 08/09/17 17:06:00 CDT, Duration: 30 day, Stop date: 09/08/17 17:05:00 CDTNotes: Do not exceed 4 gm/day. (Same as: Tylenol) Ondansetron 4 mg, 2 mL, No Longer [facility] Route: IVP, Active 2017 Medical Drug form: [place] INJ, Q6H, Dosing Weight 68.182, kg, PRN Nausea & Vomiting, Start date: 08/09/17 17:06:00 CDT, Duration: 30 day, Stop date: 09/08/17 17:05:00 CDTNotes: (Same as: Osvaldo) MEDICATION WASTE Product Size: 4 mg Product Wasted: ___ mg Acetaminophen 325 1 tab, Route: No Longer [place] MG / Hydrocodone PO, Drug Form: Active 2018 Medical Bitartrate 5 MG TAB, Dosing Center Oral Tablet Weight 68.182, kg, Q4H, PRN Pain Score 4-6, Start date: 08/09/17 17:06:00 CDT, Duration: 30 day, Stop date: 09/08/17 17:05:00 CDTNotes: (Same as: [place] 325/5) Do not exceed 4gm/day of acetaminophen. Isolyte S PH-7.4 1,000 mL, 1000 Inactive [facility] ([place]) IV ml/hr, Route: 2018 Medical IV, Drug Form: [facility], Dosing Weight 68.182, kg, ONCE, STAT, Start date: 08/09/17 15:04:00 CDT, Stop date: 08/09/17 15:04:00 CDTNotes: (Same as: Isolyte S PH 7.4) Isolyte S PH-7.4 1,000 mL, 1000 Inactive [facility] ([place]) IV ml/hr, Route: 2018 Medical IV, Drug Form: [facility], Dosing Weight 68.182, kg, ONCE, STAT, Start date: 08/09/17 13:38:00 CDT, Stop date: 08/09/17 13:38:00 CDTNotes: (Same as: Isolyte S PH 7.4) Iohexol 70 mL, Route: Inactive [facility] IVP, Drug 2017 Medical Form: [facility] Dosing Weight 68.182, kg, ONCALL, STAT, Start date: 08/09/17 12:43:00 CDT, Duration: 1 doses or times, Dose=2.2ml/kg, Max feju=[id number] -- "To be infused by Radiology Staff ONLY"Notes: (Same as:Omnipaque 350). WASTE: F/P - Black; E - Municipal Trash Bin Caffeine 100 MG / 1 tab, PO, No Longer Ergotamine Q1H, PRN for Active 2017 Tartrate 1 MG Oral headache, 2 Tablet tablets at start of attack; 1 additional tablet every 30 min, if needed, maximum 6 tab/day and 10 tab/week, X 2 day, # 20 tab, 0 Refill(s) Pts. Home Med - Pts. Home Inactive Premarin 1.25 Med - Premarin 2018 [place] mg 1.25 mg, 1 each, Drug form: MISC, Route: PO, Daily, 08/08/17 9:00:00 CDT, Duration: 30 day, Stop date: 09/06/17 9:00:00 CDT Dihydroergotamine 1 mg, 1 mL, Inactive Mesylate 1 MG/ML Route: IM, 2018 [facility] Injectable Drug form: Solution [DHE-45] INJ, ONCE, Dosing Weight 112.983, kg, Start date: 08/08/17 8:11:00 CDT, Stop date: 08/08/17 8:11:00 CDT, For Migraine HeadacheNotes: (Same as: Soy Enciso) Morphine 2 mg, 1 mL, Inactive Route: IVP, 2017 [facility] Drug form: SOLN, ONCE, Dosing Weight 112.983, kg, PRN Headache 6-10, Start date: 08/07/17 17:57:00 CDT Phenergan 12.5 mg, 0.5 No Longer mL, Route: Active 2017 [facility] IVPB, Q4H, Dosing Weight 112.983, kg, PRN Nausea & Vomiting, Start date: 08/07/17 16:15:00 CDT, Duration: 3 day, Stop date: 08/10/17 16:14:00 CDTNotes: Do not give IV push. (Same as: Phenergan) Bring pts. Home Bring pts. No Longer Med to pharmacy - Home Med to Active 2017 [facility] Premarin pharmacy - Premarin, 1 each, Drug form: MISC, Route: MISC, [place], 08/07/17 16:00:00 CDT, Duration: 30 day, Stop date: 09/06/17 8:00:00 CDT Solu-Medrol 250 mg, 4 mL, Inactive Route: IVP, 2017 [facility] Drug form: INJ, ONCE, Dosing Weight 112.983, kg, Priority: STAT, Start date: 08/07/17 11:42:00 CDT, Stop date: 08/07/17 11:42:00 CDTNotes: (Same as:Solu-MEDROL , A-Methapred) tizanidine 2 mg, 0.5 tab, No Longer Route: PO, Active 2017 [facility] Drug form: TAB, Daily, Dosing Weight 112.983, kg, Start date: 08/07/17 9:00:00 CDT, Duration: 30 day, Stop date: 09/05/17 9:00:00 CDTNotes: (Same As: Zanaflex) Nortriptyline 50 mg, 2 cap, No Longer Route: PO, Active 2017 [facility] Drug form: CAP, Daily, Dosing Weight 112.983, kg, Start date: 08/07/17 9:00:00 CDT, Duration: 30 day, Stop date: 09/05/17 9:00:00 CDTNotes: (Same as:Pamelor, Aventyl) Synthroid 125 microgram, No Longer 1 tab, Route: Active 2017 [facility] PO, Drug form: TAB, Q630AM, Dosing Weight 112.983, kg, Start date: 08/07/17 9:00:00 CDT, Duration: 30 day, Stop date: 09/06/17 6:30:00 CDTNotes: Take 1 hour before or 2 hours after meal; Enteral feeds may interefere with the absorption of this medication. (Same as:Levothroid) Premarin 1.25 mg, 2 No Longer tab, Route: 2017 [facility] PO, Drug form: TAB, Daily, Dosing Weight 112.983, kg, Start date: 08/07/17 9:00:00 CDT, Duration: 30 day, Stop date: 09/05/17 9:00:00 CDTNotes: (Same As: Premarin) Sumatriptan 6 mg, 0.5 mL, Inactive Route: SUB-Q, 2017 [facility] Drug form: INJ, ONCE, Dosing Weight 112.983, kg, PRN Headache 6-10, Priority: STAT, Start date: 08/07/17 8:46:00 CDTNotes: For SUBCUTANEOUS use only Tylenol 650 mg, 2 tab, No Longer Route: PO, Active 2017 [facility] Drug form: TAB, Q6H, Dosing Weight 112.983, kg, PRN Pain Score 1-3, Start date: 08/07/17 8:25:00 CDT, Duration: 30 day, Stop date: 09/06/17 8:24:00 CDTNotes: Do not exceed 4 gm/day. (Same as: Tylenol) Saline Flush 0.9% 10 ml, Route: No Longer IVP, Drug Active 2017 [facility] Form: INJ, Dosing Weight 112.983, kg, PRN, PRN Line Flush, Start date: 08/07/17 8:25:00 CDT, Duration: 30 day, Stop date: 09/06/17 8:24:00 CDTNotes: preservative free. Sodium Chloride 1,000 mL, No Longer 0.9% IV 1,000 mL Rate: 125 Active 2017 [facility] ml/hr, Infuse over: 8 hr, Route: IV, Dosing Weight 112.983 kg, Total Volume: 1,000, Start date: 08/07/17 8:25:00 CDT, Duration: 30 day, Stop date: 09/06/17 8:24:00 CDT, 2.4, m2 Ondansetron 4 mg, 2 mL, No Longer Route: IVP, Active 2017 [facility] Drug form: INJ, Q8H, Dosing Weight 112.983, kg, PRN Nausea & Vomiting, Start date: 08/07/17 8:25:00 CDT, Duration: 30 day, Stop date: 09/06/17 8:24:00 CDTNotes: (Same as: Zofran) MEDICATION WASTE Product Size: 4 mg Product Wasted: ___ mg Sumatriptan 50 mg, Route: Inactive PO, Drug form: 2017 [facility] TAB, ONCE, Dosing Weight 112.983, kg, PRN Headache 4-6, Start date: 08/07/17 8:24:00 CDT Ondansetron 4 mg, Route: Inactive IVP, Drug 2017 [facility] form: INJ, Q8H, Dosing Weight 112.983, kg, PRN Nausea, Start date: 08/07/17 8:24:00 CDT, Duration: 30 day, Stop date: 09/06/17 8:23:00 CDT Morphine 4 mg, 1 mL, Inactive Route: IVP, 2017 [facility] Drug form: SOLN, ONCE, Dosing Weight 112.983, kg, PRN Pain Score 6-10, Start date: 08/07/17 7:14:00 CDTNotes: (Same as:MORPhine Sulfate) Synthroid PO, Daily, 0 No Longer Refill(s) Active 2017 [facility] Nortriptyline 50 mg, PO, No Longer Daily, 0 2017 [facility] Refill(s) Estrogens, 1.25 mg=1 tab, On Hold Conjugated (SHELTER) PO, Daily, 0 2017 [facility] 1.25 MG Oral Refill(s) Tablet [Premarin] tizanidine 4 mg, PO, BID, No Longer 0 Refill(s) Active 2017 [facility] Zofran 4 mg, 1 tab, No Longer Route: PO, Active 2017 [facility] Drug form: TAB, Q4H, Dosing Weight 112.983, kg, PRN as needed for nausea/vomitin g, Start date: 08/07/17 6:44:00 CDT, Stop date: 09/06/17 6:43:00 CDTNotes: (Same as: Zofran) Zofran 4 mg, 2 mL, Inactive Route: IVP, 2017 [facility] Drug form: INJ, ONCE, Dosing Weight 110.455, kg, Priority: STAT, Start date: 08/06/17 23:14:00 CDT, Stop date: 08/06/17 23:14:00 CDTNotes: (Same as: Zofran) MEDICATION WASTE Product Size: 4 mg Product Wasted: ___ mg Magnesium Sulfate 2 gm, 4 mL, Inactive Route: IV, 2017 [facility] ONCE, Dosing Weight 110.455, kg, Priority: STAT, Start date: 08/06/17 22:04:00 CDT, Stop date: 08/06/17 22:04:00 CDTNotes: (Same as: MgSO4) WASTE: F/P - Sink; E - Municipal Trash Bin MEDICATION WASTE Product Size: 1000 mg Product Wasted: ___ mg Phenergan 12.5 mg, Inactive Route: IVPB, 2017 [facility] ONCE, Dosing Weight 110.455, kg, Priority: STAT, Start date: 08/06/17 22:04:00 CDT, Stop date: 08/06/17 22:04:00 CDT Divalproex Sodium 500 mg, 2 tab, Inactive 500 MG Enteric Route: PO, 2017 [facility] Coated Tablet Drug form: ECTAB, ONCE, Dosing Weight 110.455, kg, Start date: 08/06/17 22:03:00 CDT, Stop date: 08/06/17 22:03:00 CDT, Delayed Release TabletNotes: (Same as: Depakote Delayed Release) Do not confuse with the extended-relea se tablet. Delayed absorption, enteric coated tablet. Do not crush NS ([place]) IV 1,000 mL, Inactive 1,000 ml/hr, 2017 [facility] Infuse Over: 1 hr, Route: IV, 1,000, Drug form: INJ, ONCE, Priority: STAT, Dosing Weight 110.455 kg, Start date: 08/06/17 19:59:00 CDT, Stop date: 08/06/17 19:59:00 CDT Ketorolac 30 mg, 1 mL, Inactive Route: IVP, 2017 [facility] Drug form: INJ, ONCE, Dosing Weight 110.455, kg, Priority: STAT, Start date: 08/06/17 19:59:00 CDT, Stop date: 08/06/17 19:59:00 CDTNotes: (Same as:Toradol) IV bolus must be given >15 seconds. Give IM administration slowly and deeply into the muscle. Not for use > 4 days MEDICATION WASTE Product Size: 30 mg Product Wasted: ___ mg Compazine 10 mg, 2 mL, Inactive Route: IV, 2017 [facility] Drug form: INJ, ONCE, Dosing Weight 110.455, kg, Start date: 08/06/17 19:59:00 CDT, Stop date: 08/06/17 19:59:00 CDTNotes: (Same as: Compazine) Benadryl 25 mg, 0.5 mL, Inactive Route: IVP, 2017 [facility] Drug form: INJ, ONCE, Dosing Weight 110.455, kg, Priority: STAT, Start date: 08/06/17 19:59:00 CDT, Stop date: 08/06/17 19:59:00 CDTNotes: (Same as: Benadryl) Zofran 4 mg, 2 mL, Inactive Route: IVP, 2018 [facility] Drug form: INJ, ONCE, Dosing Weight 110.455, kg, Priority: STAT, Start date: 08/06/17 14:21:00 CDT, Stop date: 08/06/17 14:21:00 CDTNotes: (Same as: Zofran) MEDICATION WASTE Product Size: 4 mg Product Wasted: ___ mg Dexamethasone 10 mg, 2.5 mL, Inactive Route: IVP2017 [facility] Drug form: INJ, ONCE, Dosing Weight 110.455, kg, Priority: STAT, Start date: 08/06/17 14:21:00 CDT, Stop date: 08/06/17 14:21:00 CDT Benadryl 25 mg, 0.5 mL, Inactive Route: IVP2017 [facility] Drug form: INJ, ONCE, Dosing Weight 110.455, kg, Priority: STAT, Start date: 08/06/17 14:21:00 CDT, Stop date: 08/06/17 14:21:00 CDTNotes: (Same as: Benadryl) Ketorolac 30 mg, 1 mL, Inactive Route: IV2017 [facility] Drug form: INJ, ONCE, Dosing Weight 110.455, kg, Priority: STAT, Start date: 08/06/17 14:21:00 CDT, Stop date: 08/06/17 14:21:00 CDTNotes: (Same as:Toradol) IV bolus must be given >15 seconds. Give IM administration slowly and deeply into the muscle. Not for use > 4 days MEDICATION WASTE Product Size: 30 mg Product Wasted: ___ mg normal saline 0.9% 1,000 mL, Inactive IV 1,000 mL Rate: 1,000 2017 [facility] ml/hr, Infuse over: 1 hr, Route: IV, Dosing Weight 110.455 kg, Total Volume: 1,000, Priority: STAT, Start date: 08/06/17 14:20:00 CDT, Duration: 1 doses or times, Stop date: 08/06/17 15:19:00 CDT, 2.37, m2 tizanidine 4 MG See Active Oral Tablet Instructions, 2018 [facility] [Zanaflex] 0.5 tab PO bedtime x 2 days, then 1 tab PO bedtime x 14 days, then stop, # 20 tab, 0 Refill(s), Pharmacy: [facility]/pharmacy #[id number] nortriptyline 10 See Active mg oral capsule Instructions, 2018 [facility] after stopping Zanaflex 1 cap PO PM x 1 wk, then 2 cap PM x 1 wk, then 3 cap PM x 1 wk, then 4 cap PM x 1 wk, then 5 cap PO thereafter, # 150 cap, 2 Refill(s), Pharmacy: [facility]/pharmacy #[id number] tizanidine 4 MG See Inactive Oral Tablet Instructions, 2018 Neuro [Zanaflex] 0.5 tab PO bedtime x 2 days, then 1 tab PO bedtime x 10 dyas, then stop, # 15 tab, 0 Refill(s), Pharmacy: [facility]/pharmacy #[id number] Ibuprofen 0 Refill(s) Active 2017 [facility] Tylenol PO, 0 Active Refill(s) 2017 [facility] Promethazine 25 mg=1 tab, Active Hydrochloride 25 PO, Q6H, PRN 2015 [place] MG Oral Tablet Nausea, X 4 [Phenergan] day, # 30 tab, 0 Refill(s) Acetaminophen 325 1-2 tab, PO, Active MG / Hydrocodone Q4-6H, PRN 2016 [facility] Bitartrate 10 MG Pain, X 5 day, Oral Tablet [[place] # 30 tab, 0 10/325] Refill(s) Acetaminophen 325 1 tab, Route: Inactive MG / Hydrocodone PO, Drug Form: 2015 [facility] Bitartrate 10 MG TAB, Dosing Oral Tablet [[place] Weight 97.727, 10/325] kg, ONCE, STAT, Start date: 03/31/15 13:36:00, Stop date: 03/31/15 13:36:00 Phenergan 25 mg, Route: Inactive IVPB, ONCE, 2015 [facility] Dosing Weight 97.727, kg, Priority: STAT, Start date: 03/31/15 12:31:00, Stop date: 03/31/15 12:31:00 Morphine 4 mg, Route: Inactive IVP, Drug 2015 [facility] form: INJ, ONCE, Dosing Weight 97.727, kg, Priority: STAT, Start date: 03/31/15 12:31:00, Stop date: 03/31/15 12:31:00 Zofran 4 mg, Route: Inactive IVP, Drug 2015 [facility] form: INJ, ONCE, Dosing Weight 97.727, kg, Priority: STAT, Start date: 03/31/15 11:46:00, Stop date: 03/31/15 11:46:00 Morphine 4 mg, Route: Inactive IVP, Drug 2015 [facility] form: INJ, ONCE, Dosing Weight 97.727, kg, Priority: STAT, Start date: 03/31/15 11:46:00, Stop date: 03/31/15 11:46:00 Acetaminophen 325 1 tab, PO, Active MG / Hydrocodone TID, PRN Pain, 2014 [facility] Bitartrate 10 MG # 30 tab, 0 Oral Tablet [[place] Refill(s), 10/325] given to patient meclizine 25 mg 25 mg=1 tab, Active oral tablet PO, TID, PRN 2014 [facility] Other-See Comments, X 10 day, # 30 tab, 0 Refill(s) Doxycycline 100 MG 100 mg=1 cap, Active Oral Capsule PO, Q12H, X 14 2014 [facility] day, # 28 cap, 0 Refill(s) rivaroxaban 20 MG 20 mg=1 tab, Active Oral Tablet PO, QPM, # 30 2014 [Xarelto] tab, 3 Refill(s) ketOROLAC 30 mg/mL 30 mg, 1 mL, Inactive injectable Route: IV, 2014 [facility] solution Drug form: INJ, Q8H, Dosing Weight 86, kg, PRN Pain Score 4-6, Start date: 08/29/14 18:29:00, Duration: 4 day, Stop date: 09/02/14 18:28:00Notes: (Same as:Toradol) IV bolus must be given >15 seconds. Give IM administration slowly and deeply into the muscle. Not for use > 4 days MEDICATION WASTE Product Size: 30 mg Product Wasted: ___ mg Acetaminophen 1,000 mg, 100 No Longer mL, Route: IV, Active 2014 [facility] Drug form: INJ, Q6H, Dosing Weight 86, kg, PRN Pain Score 4-6, Start date: 08/29/14 18:27:00, Duration: 2 day, Stop date: 08/31/14 18:26:00Notes: Infuse over 15 minutes Do not exceed 4gm/day of acetaminophen MEDICATION WASTE Product Size: 1000 mg Product Wasted: ___ mg Morphine 2 mg, 1 mL, No Longer Route: IV, Active 2014 [facility] Drug form: INJ, Q2H, Dosing Weight 86, kg, PRN Pain Score 4-6, Start date: 08/29/14 9:49:00, Duration: 30 day, Stop date: 09/28/14 9:48:00Notes: (Same as:MORPhine Sulfate) Rocephin 250 mg, Route: Inactive IM, Drug form: 2014 [facility] PDR/INJ, ONCE, Dosing Weight 86, kg, Start date: 08/28/14 13:37:00, Stop date: 08/28/14 13:37:00Notes: (Same As: Rocephin) Zithromax 250 mg 500 mg, 2 tab, Inactive oral tablet Route: PO, 2014 [facility] Drug form: TAB, ONCE, Dosing Weight 86, kg, Start date: 08/28/14 13:37:00, Stop date: 08/28/14 13:37:00Notes: Take 1 hour before or 2 hours after meals. (Same As: Zithromax) pneumococcal 0.5 mL, Route: Inactive capsular IM, Drug Form: 2014 polysaccharide INJ, Daily, type 1 vaccine / Start date: pneumococcal 08/28/14 capsular 9:00:00, polysaccharide Duration: 1 type 10A vaccine / doses or pneumococcal times, Stop capsular date: 08/28/14 polysaccharide 9:00:00Notes: type 11A vaccine / (Same as: pneumococcal Pneumovax 23) capsular Refrigerate polysaccharide type 12F vaccine / pneumococcal capsular polysacchar Morphine 2 mg, 1 mL, No Longer Route: IV, Active 2014 [facility] Drug form: INJ, Q4H, Dosing Weight 86, kg, PRN Pain Score 4-6, Start date: 08/27/14 17:29:00, Duration: 30 day, Stop date: 09/26/14 17:28:00Notes: (Same as:MORPhine Sulfate) Tylenol 650 mg, 2 tab, No Longer Route: PO, Active 2014 [facility] Drug form: TAB, Q6H, Dosing Weight 86, kg, PRN Pain Score 1-3, Start date: 08/27/14 11:30:00, Duration: 30 day, Stop date: 09/26/14 11:29:00Notes: Do not exceed 4 gm/day. (Same as: Tylenol) tramadol 50 mg, 1 tab, No Longer hydrochloride 50 Route: PO, Active 2014 Oral Tablet Drug form: TAB, Q6H, Dosing Weight 86, kg, PRN Pain Score 1-3, Start date: 08/27/14 11:30:00, Duration: 30 day, Stop date: 09/26/14 11:29:00Notes: Not to exceed 400mg/day. (Same As: Ultram) Lorazepam 1 mg, 0.5 mL, Inactive Route: IV, 2014 [facility] Drug form: INJ, ONCE, Dosing Weight 86, kg, PRN Other -See Comment, Start date: 08/27/14 11:24:00Notes: (Same as: Ativan) Synthroid 112 microgram, No Longer 1 tab, Route: Active 2014 [facility] PO, Drug form: TAB, Daily, Dosing Weight 88.636, kg, Start date: 08/27/14 6:30:00, Duration: 30 day, Stop date: 09/25/14 6:30:00Notes: Take 1 hour before or 2 hours after meal; Enteral feeds may interefere with the absorption of this medication.(Sa me as:Levothroid) rivaroxaban 15 mg, 1 tab, No Longer Route: PO, Active 2014 [facility] Drug form: TAB, [id number], Dosing Weight 88.636, kg, Start date: 08/27/14 6:00:00, Duration: 30 day, Stop date: 09/25/14 18:00:00Notes: (Same as: Xarelto) Administer with food Meclizine 25 mg, 1 tab, No Longer Route: PO, Active 2014 [facility] Drug form: TAB, TID, Dosing Weight 88.636, kg, PRN Dizziness, Start date: 08/26/14 20:59:00, Duration: 30 day, Stop date: 09/25/14 20:58:00Notes: (Same as: Antivert) Zofran 4 mg, Route: Inactive IVP, Drug 2014 [facility] form: INJ, ONCE, Dosing Weight 88.636, kg, Start date: 08/26/14 20:17:00, Stop date: 08/26/14 20:17:00 Meclizine 25 mg, Route: Inactive PO, ONCE, 2014 [facility] Dosing Weight 88.636, kg, Start date: 08/26/14 20:17:00, Stop date: 08/26/14 20:17:00 Ondansetron 4 mg, 2 mL, No Longer Route: IVP, Active 2014 [facility] Drug form: INJ, Q6H, Dosing Weight 88.636, kg, PRN Nausea & Vomiting, Start date: 08/26/14 19:56:00, Duration: 30 day, Stop date: 09/25/14 19:55:00Notes: (Same as: Zofran) MEDICATION WASTE Product Size: 4 mg Product Wasted: ___ mg Docusate 100 mg, 1 cap, No Longer Route: PO, Active 2014 [facility] Drug form: CAP, BID, Dosing Weight 88.636, kg, PRN Constipation, Start date: 08/26/14 19:56:00, Duration: 30 day, Stop date: 09/25/14 19:55:00Notes: (Same as: Colace) (Do Not Crush) meclizine 25 mg 25 mg=1 tab, No Longer oral tablet PO, TID, PRN Active 2014 [facility] Other-See Comments, X 10 day, # 30 tab, 0 Refill(s) Ativan 1 mg, Route: Inactive IVP, Drug 2014 [facility] form: INJ, ONCE, Dosing Weight 88.636, kg, Priority: STAT, Start date: 08/26/14 17:00:00, Stop date: 08/26/14 17:00:00 Ketorolac 30 mg, Route: Inactive IVP, Drug 2014 [facility] form: INJ, ONCE, Dosing Weight 88.636, kg, Priority: STAT, Start date: 08/26/14 17:00:00, Stop date: 08/26/14 17:00:00 Zofran 4 mg, Route: Inactive IVP, Drug 2014 [facility] form: INJ, ONCE, Dosing Weight 88.636, kg, Priority: STAT, Start date: 08/26/14 15:21:00, Stop date: 08/26/14 15:21:00 Morphine 4 mg, Route: Inactive IVP, Drug 2014 [facility] form: INJ, ONCE, Dosing Weight 88.636, kg, Priority: STAT, Start date: 08/26/14 15:20:00, Stop date: 08/26/14 15:20:00 Meclizine 25 mg, 1 tab, Inactive Route: PO, 2014 [facility] Drug form: TAB, ONCE, Dosing Weight 88.636, kg, Priority: STAT, Start date: 08/26/14 14:28:00, Stop date: 08/26/14 14:28:00Notes: (Same as: Antivert) Sodium Chloride 1,000 mL, 1000 Inactive 0.154 MEQ/ML ml/hr, Infuse 2014 [facility] Injectable Over: 1 hr, Solution Route: IV, 1,000, Drug form: INJ, ONCE, Priority: STAT, Dosing Weight 88.636 kg, Start date: 08/26/14 14:28:00, Duration: 1 doses or times, Stop date: 08/26/14 14:28:00 Saline Flush 0.9% 10 mL, Route: No Longer IVP, Drug Active 2014 [facility] Form: INJ, Dosing Weight 88.636, kg, PRN, PRN Line Flush, Start date: 08/26/14 14:28:00, Duration: 30 day, Stop date: 09/25/14 14:27:00Notes: (Same as: BD Posiflush) SYNTHROID 112 MCG Active Medical TABS 2014 Group XARELTO TABS Active Medical 2014 Group rivaroxaban 15 mg 15 mg=1 tab, Active oral tablet PO, [id number], # 2014 30 tab, 1 Refill(s) Xarelto 15 mg, 1 tab, No Longer Route: PO, Active 2014 Drug form: TAB, [id number], Dosing Weight 85.909, kg, Start date: 08/09/14 18:00:00, Duration: 30 day, Stop date: 09/08/14 6:00:00Notes: (Same as: Xarelto) Administer with food Ofirmev 1,000 mg, 100 No Longer mL, Route: IV, Active 2014 Drug form: INJ, Q6H, Dosing Weight 85.909, kg, for > or=50 kg, Start date: 08/07/14 18:00:00, Duration: 1 day, Stop date: 08/08/14 12:00:00Notes: Infuse over 15 minutes Do not exceed 4gm/day of acetaminophen MEDICATION WASTE Product Size: 1000 mg Product Wasted: ___ mg docusate sodium 100 mg, 1 cap, No Longer 100 mg oral Route: PO, Active 2014 capsule Drug form: CAP, BID, Dosing Weight 85.909, kg, Start date: 08/07/14 17:00:00, Duration: 30 day, Stop date: 09/06/14 9:00:00Notes: (Same as: Colace) (Do Not Crush) Phenergan 6.25 mg, Inactive Route: IVPB, 2014 ONCE, Dosing Weight 85.909, kg, Start date: 08/07/14 14:03:00, Stop date: 08/07/14 14:03:00 Acetaminophen 325 1 tab, Route: Inactive MG / Hydrocodone PO, Drug Form: 2014 Bitartrate 5 MG TAB, Dosing Oral Tablet [[place] Weight 85.909, 5/325] kg, Q4H, PRN Pain, Start date: 08/07/14 13:31:00, Duration: 30 day, Stop date: 09/06/14 13:30:00 Ondansetron 4 mg, Route: Inactive IVP, ONCE, 2014 [facility] Dosing Weight 85.909, kg, PRN Nausea & Vomiting, Start date: 08/07/14 13:31:00 Naloxone 0.04 mg, Inactive Route: IVP, 2014 [facility] Q2MIN, Dosing Weight 85.909, kg, PRN Narcotic Reversal, Start date: 08/07/14 13:31:00, Duration: 8 doses or times, Stop date: Limited # of times Flumazenil 0.2 mg, Route: Inactive IVP, PRN, 2014 [facility] Dosing Weight 85.909, kg, PRN Benzodiazepine Reversal, Initial dose, Start date: 08/07/14 13:31:00, Duration: 30 day, Stop date: 09/06/14 13:30:00 Meperidine 12.5 mg, Inactive Route: IVP, 2014 [facility] Q30Min, Dosing Weight 85.909, kg, PRN Other -See Comment, For shivering, Start date: 08/07/14 13:31:00, Duration: 2 doses or times, Stop date: Limited # of times Acetaminophen 1,000 mg, Inactive Route: IVPB, 2014 [facility] Drug form: INJ, ONCE, Dosing Weight 85.909, kg, PRN Pain Score 1-3, Start date: 08/07/14 13:31:00, Duration: 1 doses or times, Stop date: Limited # of times Fentanyl 25 microgram, Inactive Route: IVP, 2014 [facility] Q5Min, Dosing Weight 85.909, kg, PRN Pain Score 4-6, Start date: 08/07/14 13:31:00, Duration: 4 doses or times, Stop date: Limited # of times Hydromorphone 0.5 mg, Route: Inactive IVP, Q5Min, 2014 [facility] Dosing Weight 85.909, kg, PRN Pain Score 7-10, Start date: 08/07/14 13:31:00, Duration: 4 doses or times, Stop date: Limited # of times Sodium Chloride 1,000 mL, No Longer 0.154 MEQ/ML Rate: 125 Active 2014 [facility] Injectable ml/hr, Infuse Solution over: 8 hr, Route: IV, Dosing Weight 85.909 kg, Total Volume: 1,000, Start date: 08/07/14 13:13:00, Duration: 30 day, Stop date: 09/06/14 13:12:00 Saline Flush 0.9% 10 ml, Route: No Longer IVP, Drug Active 2014 [facility] Form: INJ, Dosing Weight 85.909, kg, PRN, PRN Line Flush, Start date: 08/07/14 13:13:00, Duration: 30 day, Stop date: 09/06/14 13:12:00Notes: (Same as: BD Posiflush) Ondansetron 4 mg, 2 mL, No Longer Route: IVP, [facility] 2014 [facility] Drug form: INJ, Q6H, Dosing Weight 85.909, kg, PRN Nausea & Vomiting, Start date: 08/07/14 13:13:00, Duration: 30 day, Stop date: 09/06/14 13:12:00Notes: (Same as: Osvaldo) MEDICATION WASTE Product Size: 4 mg Product Wasted: ___ mg Morphine 2 mg, 1 mL, No Longer Route: IVP, [facility] 2014 [facility] Drug form: INJ, Q3H, Dosing Weight 85.909, kg, PRN Pain Score 4-6, Start date: 08/07/14 13:13:00, Duration: 30 day, Stop date: 09/06/14 13:12:00Notes: (Same as:MORPhine Sulfate) Acetaminophen 325 1 tab, Route: No Longer MG / Hydrocodone PO, Drug Form: 2014 [facility] Bitartrate 5 MG TAB, Dosing Oral Tablet Weight 85.909, kg, Q4H, PRN Pain Score 1-3, Start date: 08/07/14 13:13:00, Duration: 30 day, Stop date: 09/06/14 13:12:00Notes: (Same as: Thornton 325/5) Do not exceed 4gm/day of acetaminophen. Morphine 2 mg, 1 mL, Inactive Route: IV, 2014 Drug form: INJ, Q2H, Dosing Weight 85.909, kg, PRN Pain Score 1-5, Start date: 08/07/14 9:49:00, Duration: 30 day, Stop date: 09/06/14 9:48:00Notes: (Same as:MORPhine Sulfate) normal saline 0.9% 1,000 mL, Inactive IV 1,000 mL Rate: 100 2014 [facility] ml/hr, Infuse over: 10 hr, Route: IV, Dosing Weight 85.909 kg, Total Volume: 1,000, Start date: 08/07/14 9:49:00, Duration: 30 day, Stop date: 09/06/14 9:48:00 Zofran 4 mg, 2 mL, No Longer Route: IV, Active 2014 [facility] Drug form: INJ, Q4H, Dosing Weight 85.909, kg, PRN Nausea, Start date: 08/06/14 23:35:00, Duration: 30 day, Stop date: 09/05/14 23:34:00Notes: (Same as: Zofran) MEDICATION WASTE Product Size: 4 mg Product Wasted: ___ mg Synthroid 112 microgram, No Longer 1 tab, Route: Active 2014 [facility] PO, Drug form: TAB, [id number], Dosing Weight 85.909, kg, Start date: 08/06/14 6:30:00, Duration: 30 day, Stop date: 09/04/14 6:30:00Notes: Take 1 hour before or 2 hours after meal; Enteral feeds may interefere with the absorption of this medication.(Sa nj as:Levothroid) Lovenox 80 mg, 0.8 mL, No Longer Route: SUB-Q, Active 2014 [facility] Drug form: INJ, [id number], Dosing Weight 85.909, kg, Start date: 08/06/14 4:00:00, Duration: 30 day, Stop date: 09/04/14 13:00:00Notes: Nurse to ensure documentation of patient education per anticoagulatio n policy. (Same as: Lovenox) Ondansetron 4 mg, 2 mL, No Longer Route: IVP, Active 2014 [facility] Drug form: INJ, Q8H, Dosing Weight 85.909, kg, PRN Nausea & Vomiting, Start date: 08/05/14 17:46:00, Duration: 30 day, Stop date: 09/04/14 17:45:00Notes: (Same as: Zofran) MEDICATION WASTE Product Size: 4 mg Product Wasted: ___ mg Docusate 100 mg, 1 cap, No Longer Route: PO, Active 2014 [facility] Drug form: CAP, BID, Dosing Weight 85.909, kg, PRN Constipation, Start date: 08/05/14 17:46:00, Duration: 30 day, Stop date: 09/04/14 17:45:00Notes: (Same as: Colace) (Do Not Crush) Acetaminophen 325 1 tab, Route: No Longer MG / Hydrocodone PO, Drug Form: Active 2014 [facility] Bitartrate 5 MG TAB, Dosing Oral Tablet Weight 85.909, kg, Q4H, PRN Pain Score 1-3, Start date: 08/05/14 17:46:00, Duration: 30 day, Stop date: 09/04/14 17:45:00Notes: (Same as: Thornton 325/5) Do not exceed 4gm/day of acetaminophen. Levothyroxine 112 Active Sodium 0.112 MG microgram=1 2014 [facility] Oral Tablet tab, PO, [Synthroid] Daily, # 30 tab, 0 Refill(s) Lovenox 80 mg, 0.8 mL, Inactive Route: SUB-Q, 2014 [facility] Drug form: INJ, ONCE, Dosing Weight 85.909, kg, Priority: STAT, Start date: 08/05/14 15:00:00, Stop date: 08/05/14 15:00:00Notes: Nurse to ensure documentation of patient education per anticoagulatio n policy. (Same as: Lovenox) Prednisone 60 mg, Route: Inactive PO, Drug form: 2014 [facility] TAB, ONCE, Dosing Weight 85.909, kg, Priority: STAT, Start date: 08/05/14 13:15:00, Stop date: 08/05/14 13:15:00 Dicyclomine 20 mg=1 tab, Active Hydrochloride 20 PO, QID, # 28 2014 [facility] MG Oral Tablet tab, 0 [Bentyl] Refill(s) Ondansetron 4 MG 4 mg=1 tab, Active Disintegrating PO, BID, 2014 [facility] Tablet [Zofran] Nausea and Vomiting, Dissolve tab under tongue, # 10 tab, 0 Refill(s)Speci al Instructions: Dissolve tab under tongue tramadol 50 mg=1 tab, Active hydrochloride 50 PO, Q4H, # 24 2014 [facility] Oral Tablet tab, 0 Refill(s) Ketorolac 30 mg, Route: Inactive IVP, Drug 2014 [facility] form: INJ, ONCE, Dosing Weight 84.091, kg, Priority: STAT, Start date: 04/04/14 15:08:00, Stop date: 04/04/14 15:08:00 Morphine 4 mg, Route: Inactive IVP, Drug 2014 [facility] form: INJ, ONCE, Dosing Weight 84.091, kg, Priority: STAT, Start date: 04/04/14 14:26:00, Stop date: 04/04/14 14:26:00 Morphine 4 mg, Route: Inactive IVP, Drug 2014 [facility] form: INJ, ONCE, Dosing Weight 84.091, kg, Priority: STAT, Start date: 04/04/14 12:22:00, Stop date: 04/04/14 12:22:00 normal saline 0.9% 1,000 mL, Inactive IV 1000 mL Rate: 1,000 2014 [facility] ml/hr, Infuse over: 1 hr, Route: IV, Dosing Weight 84.091 kg, Total Volume: 1,000, Priority: STAT, Start date: 04/04/14 12:22:00, Duration: 1 doses or times, Stop date: 04/04/14 13:21:00 Zofran 4 mg, Route: Inactive IVP, Drug 2014 [facility] form: INJ, ONCE, Dosing Weight 84.091, kg, Priority: STAT, Start date: 04/04/14 12:21:00, Stop date: 04/04/14 12:21:00 Allergies, Adverse Reactions, Alerts Substance Category Reaction Severity Reaction Status Date Comments Source type Reported SULFA Drug SULFA allergy 5 Medical Group sulfa Assertion Drug Active Data [facility] drugs<sup> allergy 5 migrated Neuro 1</sup> from [employer] on 09/06/14. Originally documented as SULFA. hives Reglan Assertion Diarrhea, Propensity Active [facility] NOS to adverse Neuro reactions to drug sulfa Assertion Drug Active drugs allergy [place] Immunizations Immunization Date Given Site Status Last Comments Source Updated pneumococcal 08/28/2014 Right completed [facility] 23-valent vaccine deltoid Neuro, OPID [facility] Results Order Name Results Value Reference Date Interpretation Comments Source Range BODY WBC CSF 0 /mm3 0 - 53 08/11 [facility] /[address] [place] [address] BODY Supernat CSF Colorless Colorless 08/11 [facility] (08/11/17 11:36 AM) Center BODY RBC CSF 0 /mm3 0 - 03 08/11 [facility]2017 [facility] BODY Clarity CSF Clear Clear 08/11 [facility] FLUIDS [facility] (08/11/17 11:36 AM) Center BODY Color CSF Colorless Colorless 08/11 [facility] /2017 [facility] (08/11/17 11:36 AM) [place] BODY Tube Num CSF 3 08/[address] [facility] BODY Glucose CSF 74 mg/dL 45 - 80 08/[address] BODY Protein CSF 20 mg/dL 15 - 45 08/[address] IMMUNOLOGY ASHKAN CSF <1 unit/L <=3 unit/L 08/11 [facility] [address] [place] [address] IMMUNOLOGY VDRL Scr CSF Non Reactive Non 08/11 [facility] Reactive [facility] (08/11/17 11:36 AM) Center Gram Stain Gram Stain 08/11 [facility] Report Performed Medical By: Center [facility] [place] Culture: CSF 48 Hour 08/11 [facility]/Gram Stain Report - Medical No Growth, [place] Holding Spine Spine lumbar EXAM: LUMBAR PUNCTURE, FLUOROSCOPIC GUIDANCE 08/11 - [facility] lumbar puncture w - Medical puncture w fluoro DX This report was dictated by a Tractor Trailer Truck Driver /Fellow. I have personally reviewed the images as Center fluoro DX well as the Resident's interpretation and agree with the findings. DATE: 08/11/2017 2:32 PM CDT Read by: Chandu Bell MD Resident: Chandu Bell MD Dictated Date/time: 08/11/17 17:50 Electronically Signed by: Neo Coronel MD 08/11/17 23:27 FINAL REPORT INDICATION: Other- See Reason for Consult - lp COMPARISON: Lumbar puncture dated 01/29/2011. TECHNIQUE AND FINDINGS: Informed consent was obtained from the patient, and time out procedure was performed. The lower back was prepped and draped in sterile fashion with the patient in prone position. Under fluoroscopic guidance a 22 gauge needle was advanced into the thecal sac at the L2-L3 interspace, and 1 8 mL of clear spinal fluid was withdrawn without complication. The opening pressure was 29 cm of water and the closing pressure was 14.5. FLUOROSCOPY TIME: 0.2 min Skin dose: 6.6 mGy Neo Coronel MD was present for the procedure. IMPRESSION: Successful fluoroscopy guided lumbar puncture. CHEM PANEL eGFR 80 08/11 Result Comment: The eGFR is calculated using the CKD-EPI formula. In most young, healthy individuals the eGFR will be >90 mL/ min/1.73m2. The eGFR declines with age. An eGFR of 60-89 may be normal in [facility] mL/min/1. some populations, particularly the elderly, for whom the CKD-EPI formula has not been extensively validated. Use of the eGFR is not recommended in the following populations: [address] Individuals with unstable creatinine concentrations, including patients and those with serious co-morbid conditions. Patients with extremes in muscle mass or diet. The data above are obtained from the National Kidney Disease Education Program (NKDEP) which additionally recommends that when the eGFR is used in patients with extremes of body mass index for purposes of drug dosing, the eGFR should be multiplied by the estimated BMI. CHEM PANEL Glucose Lvl 164 mg/dL 70 - 99 08/11 [facility] CHEM PANEL BUN 11 mg/dL 7 - 22 08/11 [facility]2017 [facility] CHEM PANEL Potassium 3.5 meq/L 3.5 - 5.1 08/11 [facility] /2017 [facility] CHEM PANEL Creatinine 0.92 mg/dL 0.50 - 08/11 [facility] Lvl 1.40 /2018 Medical Center CHEM PANEL Chloride Lvl 105 meq/L 95 - 109 08/11 [place] /2018 [facility] CHEM PANEL AGAP 15.5 meq/L 10.0 - 07 [place] 20.0 /2017 [facility] CHEM PANEL Calcium Lvl 8.0 mg/dL 8.5 - 10.5 08/11 [place] /2018 [facility] CHEM PANEL Sodium Lvl 141 meq/L 135 - 145 08/11 [place] /2018 [facility] CHEM PANEL CO2 24 meq/L 24 - 32 08/11 [place] /2018 [facility] CARDIAC CK MB 1.0 ng/mL 0.5 - 3.6 08/10 [place] [facility] /2018 [facility] CARDIAC CK MB Index 0.7 0.0 - 2.5 08/10 [place] [facility] /2018 [facility] CARDIAC Troponin-T null 0.000 - 08/10 [place] [facility] 0.100 /2018 [facility] CARDIAC Troponin-I null 0.00 - 08/10 [place] [facility] 0.40 /2018 [facility] CARDIAC Total CK 137 unit/L 08/10 [place] [facility] /2018 [facility] CARDIAC Troponin-T null 0.000 - 08/10 [place] [facility] 0.100 /2018 [facility] CARDIAC Troponin-I null 0.00 - 08/10 [place] [facility] 0.40 /2018 [facility] CARDIAC CK MB Index 0.9 0.0 - 2.5 08/10 [place] [facility] /2018 [facility] CARDIAC CK MB 1.4 ng/mL 0.5 - 3.6 08/10 [place] [facility] /2018 [facility] CARDIAC Total CK 157 unit/L - 08/10 [place] [facility] /2018 [facility] CARDIAC CK MB Index 1.3 0.0 - 2.5 08/10 [place] [facility] /2018 [facility] CARDIAC CK MB 2.3 ng/mL 0.5 - 3.6 08/10 [place] [facility] /2018 [facility] CARDIAC Total CK 176 unit/L - 08/10 [place] [facility] /2018 [facility] CARDIAC Troponin-T null 0.000 - 08/10 [place] [facility] 0.100 /2018 [facility] CARDIAC Troponin-I null 0.00 - 08/10 [place] [facility] 0.40 /2018 [facility] CHEM PANEL Phosphorus 2.9 mg/dL 2.5 - 4.5 08/10 [place] /2018 [facility] CHEM PANEL Magnesium 1.9 mg/dL 1.8 - 2.4 08/10 [facility] [place] Lvl /2018 [facility] Brain w/wo Brain w/wo MRA OF THE BRAIN WITH AND WITHOUT CONTRAST 08/09 - [facility] contrast contrast MRA /2018 - Medical MRA and and MRV MRV OF THE BRAIN WITH AND WITHOUT CONTRAST Center MRV Read by: Buzz Lehman MD Dictated Date/time: 08/10/17 03:26 DATE: 08/09/2017 at 10:37 PM. Electronically Signed by: Buzz Lehman MD 08/10/17 03:38 FINAL REPORT COMPARISON: MRA brain 08/27/2014 HISTORY: Benign intracranial hypertension.. TECHNIQUE: Pre and postcontrast MR angiography and venography of the cervical and intracranial circulation was performed utilizing 3-D time-of- flight and phase contrast techniques. Maximum intensity pro jection, MIP reformatted images were provided. Source images were also reviewed. 15 cc of MultiHance contrast was administered intravenously. FINDINGS: MRA: There is normal flow signal and enhancement within the bilateral intracranial internal carotid arteries, the bilateral distal vertebral arteries , and the basilar artery. The anterior and posterior circulations demonstrate normal branching pattern and caliber. There are no intracranial branch occlusions or stenoses. There are no aneurysms or vascular malformations. Normal flow signal is noted within the cervical bilateral common, internal , and external carotid arteries. There is no carotid bifurcation stenosis. Normal flow signal and enhancement is noted within the bilateral vertebral arteries. MRV: There is normal flow signal within the superior sagittal sinus, the bilateral internal cerebral veins, the vein of Tra, the straight sinus, and the bilateral internal jugular veins. Flow signal i s noted within the bilateral transverse sinuses with prominence of the right transverse sinus. There is narrowing and focal stenosis of the lateral transverse sinuses bilaterally consistent with benign intracranial hypertension. There is no venous sinus thrombosis. IMPRESSION: 1. Stenosis of the bilateral lateral transverse sinuses consistent with benign intracranial hypertension. 2. Normal MRA of the brain. Brain/Orbi Brain/Orbits MRI OF THE BRAIN AND ORBITS WITH AND WITHOUT CONTRAST 08/09 - [facility] ts w/wo w/wo /2018 - Medical contrast contrast MRI Center MRI DATE: 08/10/2017 at 12:29 AM. Read by: Buzz Lehman MD Dictated Date/time: 08/10/17 03:44 Electronically Signed by: Buzz Lehman MD 08/10/17 03:51 FINAL REPORT HISTORY: Benign intracranial hypertension/idiopathic intracranial hypertension, pseudotumor cerebri. TECHNIQUE: Pre and postcontrast MR imaging was performed utilizing T1, T2, and diffusion weighting. High-resolution images were obtained through the orbits. FINDINGS: There is no restricted diffusion to indicate acute infarction. The rivera-white interfaces are well defined. There are no foci of signal abnormality within the brain substance. There are no mass lesions or extra-axial collections. Normal vascular flow voids are noted. High-resolution images of the orbits demonstrate mild prominence of the subarachnoid spaces of the optic nerve sheaths. There is mild flattening of the posterior sclera. These findings are consistent wi th idiopathic intracranial hypertension or pseudotumor cerebri. Mucosal thickening is noted within the left sphenoid sinus. IMPRESSION: 1. Mild prominence of the optic nerve sheaths and flattening the posterior sclera consistent with idiopathic intracranial hypertension or pseudotumor cerebri. URINE AND UA Bacteria Few /HPF None Seen 08/09 [facility] /HPF /[address] [place] [address] URINE AND UA RBC None Seen 0 - 2 08/[address] (08/09/17 2:28 PM) [place] URINE AND UA Sq Epi Occasional Few /LPF 08/09 [facility] /LPF /[address] [place] [address] URINE AND UA WBC None Seen None Seen 08/[address] (08/09/17 2:28 PM) [place] URINE AND UA Mucus None Seen None Seen 08/[address] (08/09/17 2:28 PM) [place] URINE AND UA Turbidity Clear Clear 08/[address] (08/09/17 2:28 PM) [place] URINE AND UA Blood Negative Negative 08/[address] (08/09/17 2:28 PM) [place] URINE AND UA Bili Negative Negative 08/[address] *NA* [place] (08/09/17 2:28 PM) URINE AND UA Leuk Est Negative Negative 08/[address] (08/09/17 2:28 PM) [place] URINE AND UA Nitrite Negative Negative 08/[address] (08/09/17 2:28 PM) [place] URINE AND UA 0.2 EU/dL 0.1 - 1.0 08/09 [facility] Urobilinogen /[address] [place] [address] URINE AND UA Color Yellow Yellow 08/09 [facility] Medical *NA* [place] (08/09/17 2:28 PM) URINE AND UA Spec Grav <=1.005 <=1.030 08/09 [facility]
*NA*< /2017 Medical br/>( Center 8 2:28 PM) URINE AND UA Ketones Negative Negative 08/09 [facility] *NA* [place] (08/09/17 2:28 PM) URINE AND UA pH 6.0 5.0 - 8.0 08/[address] URINE AND UA Protein Negative Negative 08/09 [facility] (08/09/17 2:28 PM) [place] URINE AND UA Glucose Negative Negative 08/09 [facility] (08/09/17 2:28 PM) [place] BLOOD BANK ABO/Rh O POS 08/09 [facility] RESULTS [facility] BLOOD BANK Antibody Negative 08/09 [facility] RESULTS Scr [facility] (08/09/17 1:30 PM) [place] CHEM PANEL eGFR 98 08/09 Result Comment: The eGFR is calculated using the CKD-EPI formula. In most young, healthy individuals the eGFR will be >90 mL/ min/1.73m2. The eGFR declines with age. An eGFR of 60-89 may be normal in [facility] mL/min/1. some populations, particularly the elderly, for whom the CKD-EPI formula has not been extensively validated. Use of the eGFR is not recommended in the following populations: [address] Individuals with unstable creatinine concentrations, including patients and those with serious co-morbid conditions. Patients with extremes in muscle mass or diet. The data above are obtained from the National Kidney Disease Education Program (NKDEP) which additionally recommends that when the eGFR is used in patients with extremes of body mass index for purposes of drug dosing, the eGFR should be multiplied by the estimated BMI. CHEM PANEL CO2 26 meq/L 24 - 32 08/09 [facility]2017 [facility] CHEM PANEL Potassium 3.3 meq/L 3.5 - 5.1 08/09 [facility] Lvl /2017 [facility] CHEM PANEL Chloride Lvl 104 meq/L 95 - 109 08/[address] CHEM PANEL Calcium Lvl 8.6 mg/dL 8.5 - 10.5 08/09 [facility] [place] [address] CHEM PANEL Glucose Lvl 85 mg/dL 70 - 99 08/[address] CHEM PANEL BUN 12 mg/dL 7 - 22 08/[address] CHEM PANEL Creatinine 0.78 mg/dL 0.50 - 08/09 [facility] Lvl [address].40 [facility] CHEM PANEL Sodium Lvl 138 meq/L 135 - 145 08/[address] CHEM PANEL AGAP 11.3 meq/L 10.0 - 08/[address] [facility] ENDOCRINOL S Preg Negative Negative 08/09 [facility] OGY Medical *NA* Center (08/09/17 11:58 AM) HEMATOLOGY MPV 9.2 fL 7.4 - 10.4 08/09 [facility]2017 [facility] HEMATOLOGY RBC 4.12 M/CMM 4.20 - 08/09 [facility] [address].40 [facility] HEMATOLOGY WBC 9.1 K/CMM 3.7 - 10.4 08/09 [facility] [address] [place] [address] HEMATOLOGY RDW 14.0 % 11.5 - 08/09 [facility] [address] [facility] HEMATOLOGY Platelet 204 K/CMM 133 - 450 08/[address] [place] [address] HEMATOLOGY MCHC 33.4 g/dL 32.0 - 08/09 [facility] [address] [facility] HEMATOLOGY MCH 30.0 pg 27.0 - 08/09 [facility] [address] [facility] HEMATOLOGY MCV 89.6 fL 80.0 - 08/09 [facility] [address] [facility] HEMATOLOGY Hct 36.9 % 36.0 - 08/[address] [facility] HEMATOLOGY Hgb 12.3 g/dL 12.0 - 08/09 [facility] [address] [facility] HEMATOLOGY Basophils # 0.1 K/CMM 0.0 - 0.2 08/09 [facility] HEMATOLOGY Eosinophils 0.1 K/CMM 0.0 - 0.5 08/09 [facility] # /2017 [facility] HEMATOLOGY Monocytes # 0.5 K/CMM 0.0 - 0.8 08/[address] HEMATOLOGY Monocytes 6.0 % 2.0 - 12.0 08/09 [facility] [address] [place] [address] HEMATOLOGY Lymphocytes 3.1 K/CMM 1.0 - 5.5 08/09 [facility] # /2017 [facility] HEMATOLOGY Segs-Bands # 5.3 K/CMM 1.5 - 8.1 08/09 [facility] HEMATOLOGY Eosinophils 1.0 % 0.0 - 4.0 08/09 [facility] HEMATOLOGY Basophils 0.6 % 0.0 - 1.0 08/09 [facility] HEMATOLOGY Lymphocytes 33.8 % 20.0 - 08/[address] [facility] HEMATOLOGY Segs 58.6 % 45.0 - 08/[address] [place] [address] [facility] HEMATOLOGY PTT 24.1 s 22.9 - 08/[address] [place] [address] [facility] HEMATOLOGY INR 0.83 0.85 - 08/09 [facility] [address].17 [facility] HEMATOLOGY PT 11.4 s 12.0 - 08/09 [facility] [address].7 [facility] IMMUNOLOGY [facility] HIV 4th Negative Negative 08/09 [facility] GEN [facility] *NA* Center (08/09/17 11:56 AM) Brain wo Brain wo EXAM: CT HEAD WITHOUT CONTRAST 08/09 [facility] contrast contrast CT /2017 - [facility] CT Center DATE: 08/09/2017 12:09 PM CDT Read by: Romulo Llamas MD Dictated Date/time: 08/09/17 13:57 Electronically Signed by: Romulo Llamas MD 08/09/17 14:06 FINAL REPORT INDICATION: 37 years old Female patient with history of - syncope, GREEN. TECHNIQUE: Multiple axial images were obtained through the head from vertex to the skull base. Axial bone algorithm reconstruction images are provided. COMPARISON: MRI brain 02/18/2016 FINDINGS: No acute intracranial hemorrhage is identified. The ventricles are normal in size. No parenchymal mass, mass effect or midline shift is present. The rivera- white matter differentiation is maintained. No p athologic extra axial fluid is identified. Empty sella is identified. There is blunting of the posterior globes at the insertion of the optic nerves. Visualized paranasal sinuses are clear. No mastoid e ffusion is identified. The bony calvarium is intact. IMPRESSION: 1. No CT evidence of acute intracranial abnormality. Empty sella and flattening of the posterior globes are concerning for idiopathic intracranial hypertension (pseudotumor cerebri). Correlation with CSF pressure is recommended. Spine Spine EXAM: CT CERVICAL SPINE WITHOUT CONTRAST 07/03 [facility] cervical cervical wo /2017 - Medical wo contrast CT This report was dictated by a Tractor Trailer Truck Driver/ Fellow. I have personally reviewed the images as Center contrast well as the Resident's interpretation and agree with the findings. CT DATE: 08/09/2017 12:09 PM CDT Read by: Fernando Bentley MD Resident: Fernando Bentley MD Dictated Date/time: 08/09/17 13:35 Electronically Signed by: Iwrin So MD 08/09/17 14:10 FINAL REPORT INDICATION: - neck pain s/p fall COMPARISON: Magnetic resonance imaging of the cervical spine 01/18/2011. Chest radiograph 03/31/2015. TECHNIQUE: Volumetric acquisition of the cervical spine without contrast. Axial, sagittal and coronal reconstructions. IV contrast: None. DLP: 673 mGy-cm UT SECTION: ER FINDINGS: The spine is imaged from the skull base to the level of T1. No acute fracture or malalignment is identified. There is very minimal retrolisthesis at C2/C3 and C3/C4 which is unchanged from 2010. No soft tissue abnormality is identified. A 1 cm metallic foreign body is embedded in the soft tissues of the left lower neck in close proximity to the left sternocleidomastoid as seen on image 75 of series 3. Of note, this foreign body was present in 2015. IMPRESSION: 1. No acute abnormality in the cervical spine. 2. Mild spondylosis of the cervical spine Chest Chest EXAM: CTA CHEST WITH CONTRAST 08/09 [facility] Pulmonary Pulmonary /2017 - Medical Embolism Embolism CTA Center CTA DATE: 08/09/2017 12:10 PM CDT Read by: Cale Bustamante MD Dictated Date/time: 08/09/17 13:16 Electronically Signed by: Cale Bustamante MD 08/09/17 13:21 FINAL REPORT INDICATION: - chest pain, hx of DVT, tachycardia, syncope COMPARISON: No available prior chest CTs for comparison. TECHNIQUE: Volumetric CT acquisition of the chest, during pulmonary arterial phase, after intravenous contrast. Axial, sagittal, coronal, and oblique MIP reconstructions are created at the acquisition workstation. IV Contrast: 70 mL of Omnipaque 350 DLP: 792 mGy-cm FINDINGS: Lines and tubes: None Lower neck: The visualized portion of the thyroid gland and lower neck are unremarkable. Heart and Mediastinum: No cardiomegaly. No pericardial effusion. RV to LV ratio is less than 1. No aortic or coronary calcifications identified. Measurements and appearance of the thoracic aorta are nor mal. At the same level where the ascending aorta measures 3.2 cm the pulmonary trunk measures 2.2 cm. There is no pulmonary embolus. Pleura: Trace right pleural effusion. No pneumothorax. Lymph Nodes: There is no hilar, mediastinal, axillary or internal mammary lymphadenopathy. Lungs: Minimal bibasilar dependent atelectatic changes. Small calcified nodule is seen in the superior lingular segment. (Axial image 95). Otherwise, lungs are clear. Trachea: Unremarkable. Upper abdomen: The visualized portion of the upper abdomen is unremarkable. Bones and soft tissues: Unremarkable. IMPRESSION: 1. No pulmonary embolism. No CT features of right heart strain. 2. Lungs are essentially clear. 3. Trace right pleural fluid. RECOMMENDATIONS: None. Elbow 3 Elbow 3 EXAM: XR RIGHT ELBOW 3 VIEWS 08/09 - [place] views DX views DX /2017 [facility] DATE: 08/09/2017 12:09 PM CDT Read by: Irwin So MD Dictated Date/time: 08/09/17 12:46 Electronically Signed by: Irwin So MD 08/09/17 12:48 FINAL REPORT INDICATION: - pain s/p fall COMPARISON: None TECHNIQUE: AP, lateral and oblique radiographs of the right elbow DISCUSSION: No acute fracture or malalignment is identified. There is no excessive joint fluid. No soft tissue abnormality is identified. IMPRESSION: No acute abnormality. Chest Chest 1view EXAM: XR CHEST 1 VIEW 08/09 - [facility] 1view DX DX /2017 [facility] DATE: 08/09/2017 12:08 PM CDT Read by: Irwin So MD Dictated Date/time: 08/09/17 12:42 Electronically Signed by: Irwin So MD 08/09/17 12:45 FINAL REPORT INDICATION: - syncope COMPARISON: 03/31/2015 TECHNIQUE: AP chest FINDINGS: Lines and tubes: None. Lungs and pleura: Subsegmental atelectasis is present in the left lung base. Lung volumes are slightly low. No other pulmonary or pleural based abnormality is identified. Heart and mediastinum: Unremarkable. Chest wall: Unremarkable. Bones: No acute bony abnormality is identified. IMPRESSION: Minimal left basilar atelectasis, without other acute cardiopulmonary abnormality. Hand 3 Hand 3 views EXAM: XR LEFT HAND 3 VIEWS 08/09 - [facility] views DX - Medical This report was dictated by a Tractor Trailer Truck Driver/Fellow. I have personally reviewed the images as Center well as the Resident's interpretation and agree with the findings. DATE: 08/09/2017 12:09 PM CDT Read by: Fernando Bentley MD Resident: Fernando Bentley MD Dictated Date/time: 08/09/17 12:35 Electronically Signed by: Irwin So MD 08/09/17 12:38 FINAL REPORT INDICATION: - 2nd/3rd digit pain s/p fall COMPARISON: None. TECHNIQUE: PA, lateral and oblique radiographs of the hand FINDINGS: No acute fracture or malalignment is identified. Soft tissue swelling is present about the 2nd and 3rd digits. No radiopaque foreign body. IMPRESSION: Soft tissue swelling about the 2nd and 3rd digits of the left hand without underlying fracture or malalignment. URINE AND UA <=1.0 0.1 - 1.0 08/07 [facility] Urobilinogen mg/dL [place] URINE AND UA Ketones Negative Negative 08/07 [facility] mg/dL mg/dL [facility] URINE AND UA Nitrite Negative Negative 08/07 [facility] (08/06/17 7:19 PM) URINE AND UA Leuk Est Negative Negative 08/07 [facility] (08/06/17 7:19 PM) URINE AND UA Sq Epi Occasional Few /LPF 08/07 [facility] /LPF /2017 [facility] URINE AND UA Bili Negative Negative 08/07 [facility] *NA* (08/06/17 7:19 PM) URINE AND UA Glucose Negative Negative 08/07 [facility] mg/dL mg/dL [facility] URINE AND UA Protein Negative Negative 08/07 [facility] mg/dL mg/dL [facility] URINE AND UA Blood Negative Negative 08/07 [facility] (08/06/17 7:19 PM) URINE AND UA Color Yellow Yellow 08/07 [facility] *NA* (08/06/17 7:19 PM) URINE AND UA WBC 1 /HPF 0 - 5 08/07 [facility] URINE AND UA Bacteria Occasional None Seen 08/07 [facility] /HPF /HPF /2017 [facility] URINE AND UA RBC 1 /HPF 0 - 2 08/07 [facility] URINE AND UA Mucus Few /LPF None Seen 08/07 [facility] /LPF /2017 [facility] URINE AND UA Spec Grav 1.008 <=1.030 08/07 [facility] URINE AND UA Turbidity Clear Clear 08/07 [facility] (08/06/17 7:19 PM) URINE AND UA pH 6.0 5.0 - 8.0 08/07 [facility] URINE CHEM U Preg Negative Negative 08/07 [facility] (08/06/17 7:19 PM) CHEM PANEL A/G Ratio 1.0 0.7 - 1.6 08/06 [facility] CHEM PANEL B/C Ratio 8 6 - 25 08/06 [facility] CHEM PANEL Globulin 3.8 g/dL 2.7 - 4.2 08/06 [facility] CHEM PANEL AGAP 13.1 meq/L 10.0 - 08/06 [facility] 20.0 [facility] CHEM PANEL eGFR 113 08/06 Result Comment: The eGFR is calculated using the CKD-EPI formula. In most young, healthy individuals the eGFR will be >90 mL/ min/1.73m2. The eGFR declines with age. An eGFR of 60-89 may be normal in mL/min/1.7 some populations, particularly the elderly, for whom the CKD-EPI formula has not been extensively validated. Use of the eGFR is not recommended in the following populations: [facility] 3m2 Individuals with unstable creatinine concentrations, including patients and those with serious co-morbid conditions. Patients with extremes in muscle mass or diet. The data above are obtained from the National Kidney Disease Education Program (NKDEP) which additionally recommends that when the eGFR is used in patients with extremes of body mass index for purposes of drug dosing, the eGFR should be multiplied by the estimated BMI. CHEM PANEL Calcium Lvl 8.7 mg/dL 8.5 - 10.5 08/06 [facility] CHEM PANEL Total 7.5 g/dL 6.4 - 8.4 08/06 [facility] CHEM PANEL Potassium 4.1 meq/L 3.5 - 5.1 08/06 [facility] Lvl /2017 [facility] CHEM PANEL Chloride Lvl 107 meq/L 95 - 109 08/06 [facility] CHEM PANEL CO2 25 meq/L 24 - 32 08/06 [facility] CHEM PANEL Sodium Lvl 141 meq/L 135 - 145 08/06 [facility] CHEM PANEL Creatinine 0.74 mg/dL 0.50 - 08/06 [facility] Lvl 1.40 [facility] CHEM PANEL BUN 6 mg/dL 7 - 22 08/06 [facility] CHEM PANEL Bili Total 0.2 mg/dL 0.2 - 1.3 08/06 [facility] CHEM PANEL Albumin Lvl 3.7 g/dL 3.5 - 5.0 08/06 [facility] CHEM PANEL ALT 25 unit/L 0 - 65 08/06 [facility] CHEM PANEL AST 16 unit/L 0 - 37 08/06 [facility] CHEM PANEL Alk Phos 83 unit/L 39 - 136 08/06 [facility] CHEM PANEL Glucose Lvl 99 mg/dL 70 - 99 08/06 [facility] HEMATOLOGY Eosinophils 0.1 K/CMM 0.0 - 0.5 08/06 [facility] HEMATOLOGY Basophils 0.5 % 0.0 - 1.0 08/06 [facility] HEMATOLOGY Segs-Bands # 3.0 K/CMM 1.5 - 8.1 08/06 [facility] HEMATOLOGY Monocytes # 0.3 K/CMM 0.0 - 0.8 08/06 [facility] HEMATOLOGY Lymphocytes 2.6 K/CMM 1.0 - 5.5 08/06 [facility] HEMATOLOGY Eosinophils 1.0 % 0.0 - 4.0 08/06 [facility] HEMATOLOGY Monocytes 4.3 % 2.0 - 12.0 08/06 [facility] HEMATOLOGY Lymphocytes 44.4 % 20.0 - 08/06 [facility] 40.0 [facility] HEMATOLOGY Segs 49.8 % 45.0 - 08/06 [facility] 75.0 [facility] HEMATOLOGY Platelet 253 K/CMM 133 - 450 08/06 [facility] HEMATOLOGY MPV 9.2 fL 7.4 - 10.4 08/06 [facility] HEMATOLOGY MCHC 33.5 g/dL 32.0 - 08/06 [facility] 36.0 /2017 [facility] HEMATOLOGY RDW 13.9 % 11.5 - 08/06 [facility] 14.5 [facility] HEMATOLOGY MCH 29.7 pg 27.0 - 08/06 [facility] 31.0 [facility] HEMATOLOGY MCV 88.7 fL 80.0 - 08/06 [facility] 98.0 [facility] HEMATOLOGY Hct 38.0 % 36.0 - 08/06 [facility] 48.0 [facility] HEMATOLOGY Hgb 12.7 g/dL 12.0 - 08/06 [facility] 16.0 [facility] HEMATOLOGY WBC 6.0 K/CMM 3.7 - 10.4 08/06 [facility] /2017 [facility] HEMATOLOGY RBC 4.28 M/CMM 4.20 - 08/06 [facility] 5.40 [facility] Brain wo Brain wo CT HEAD WITHOUT CONTRAST: 08/06 - [facility] contrast contrast CT /2017 - [place] [facility] HISTORY: Persistent severe migraine. Read by: Lucas Hamlin MD Dictated Date/time: 08/06/17 20:17 Electronically Signed by: Lucas Hamlin MD 08/06/17 20:19 FINAL REPORT PROCEDURE: Multiple axial images from the skull base to the skull vertex were obtained without contrast. Coronal and sagittal reconstructed images were performed. DLP: 888.96 mGy-cm COMPARISON: None FINDINGS: No acute hemorrhage, midline shift, extra-axial fluid collection , mass, or hydrocephalus is present. Rivera-white differentiation appears normal. No sulcal effacement to suggest acute infarct i s present. Partially empty sella is of uncertain clinical significance. The visualized mastoid air cells are clear. There is no air-fluid level in the visualized paranasal sinuses. Mild left sphenoid mucosal thickening is noted. IMPRESSION: No acute intracranial abnormality. SL: BM-M Carotid Carotid CAROTID ULTRASOUND 06/30 - [facility] artery artery /2017 - [place] Doppler Doppler bilat US bilat US HISTORY: - [id number], RT neck pain; Read by: Pérez Yepez MD Dictated Date/time: 06/30/17 14:10 Electronically Signed by: Pérez Yepez MD 06/30/17 14:14 FINAL REPORT TECHNIQUE: Rivera-scale, color Doppler and spectral Doppler of the carotid arteries was performed. Any reported ICA stenoses indirectly reference the distal internal carotid diameter as the denominator for the sten osis measurement, utilizing consensus panel criteria. COMPARISON: None available. FINDINGS: RIGHT: No significant plaque ICA PSV 80 cm/sec CCA PSV 132 cm/sec ICA/CCA ratio 0.6 Vertebral flow is antegrade. External carotid artery is patent. LEFT: No significant plaque ICA PSV 75 cm/sec CCA PSV 114 cm/sec ICA/CCA ratio 0.7 Vertebral flow is antegrade. External carotid artery is patent. IMPRESSION: 1. RIGHT: ICA stenosis <50 % by velocity criteria. 2. LEFT: ICA stenosis <50 % by velocity criteria. Consensus panel Doppler US criteria for diagnosis of ICA stenosis: Stenosis (%) ICA PSV (cm/sec) ICA/CCA ratio -- <50 <125 <2.0 50-69 125-230 2.0-4.0 >70 but less than >230 >4.0 near occlusion Near occlusion High, low, or Variable undetectable SL: [id number] Brain CTA Brain CTA PROCEDURE: BRAIN CTA / CT VENOGRAM 04/16 [facility] CLINICAL INDICATION: I67.1. Cerebral aneurysm. Read by: Dong Flores MD Dictated Date/time: 04/16/16 16:48 Electronically Signed by: Dong Flores MD 04/16/16 21:06 FINAL REPORT Note: The patient reports a headache, blurry vision, numbness and tingling. COMPARISON: Multiple prior examinations, the most recent comparison examination is magnetic resonance imaging of the brain and MRA of the brain performed 08/27/2014. TECHNIQUE: Enhanced axial helical CT images of the brain were performed. Coronal and sagittal reconstructions are available along with 3D post-processed imaging for exam interpretation. Unenhanced axial helical CT images of the brain were also performed. IV contrast: [address] Radiation Dose DLP 2098.14 mGy-cm. FINDINGS: BRAIN CTA: There is a tiny calcification involving the cavernous segment of the left internal carotid artery. Flow is demonstrated in the intracranial arterial vasculature without a demonstrable hemodyn amically significant stenosis, aneurysm or arterial venous malformation. The vertebral arteries are codominant. BRAIN CT VENOGRAM: Flow is demonstrated in the intracranial venous vasculature without demonstrable thrombosis. The left transverse sinus is hypoplastic. NON-CONTRAST BRAIN IMAGES: The brain volume is age-appropriate. Again noted is an empty sella. There is no finding to suggest an acute infarction. There is no demonstrable mass, hemorrhage, hydrocephalu s, extra-axial fluid collection, midline shift or herniation. ADDITIONAL FINDINGS: There is debris/mucosal thickening in the posterior aspect of the left sphenoid sinus. There is minimal segmental mucosal thickening in the bilateral ethmoid sinuses. There is parti al aeration of the lana luís, a developmental variation. There is no demonstrable abnormality of the orbits, mastoids or calvarium. IMPRESSION: 1. Tiny calcification involving the cavernous segment of the left internal carotid artery. Otherwise unremarkable CTA of the intracranial arterial vasculature. 2. Hypoplastic left transverse sinus. Otherwise unremarkable CTV of the intracranial venous vasculature. 3. There is no demonstrable acute intracranial abnormality. 4. Stable empty sella. 5. Mild left sphenoid sinusitis. 6. Minimal chronic bilateral ethmoid sinusitis. SL: 15 CARDIAC Total CK 133 unit/L 12 - 191 03/31 [facility] CARDIAC BNP 4 pg/mL <=100 03/31 [facility] pg/mL /2015 [facility] CARDIAC CK MB Index null 0.0 - 2.5 03/31 [facility] CARDIAC Troponin-I null 0.00 - 03/31 [facility] 0.40 /2016 [facility] CARDIAC CK MB null 0.5 - 3.6 03/31 [facility] CHEM PANEL eGFR 87 03/31 Result Comment: The eGFR is calculated using the CKD-EPI formula. In most young, healthy individuals the eGFR will be >90 mL/ min/1.73m2. The eGFR declines with age. An eGFR of 60-89 may be normal in mL/min/1.7 /2016 some populations, particularly the elderly, for whom the CKD-EPI formula has not been extensively validated. Use of the eGFR is not recommended in the following populations: [facility] 3m2 Individuals with unstable creatinine concentrations, including patients and those with serious co-morbid conditions. Patients with extremes in muscle mass or diet. The data above are obtained from the National Kidney Disease Education Program (NKDEP) which additionally recommends that when the eGFR is used in patients with extremes of body mass index for purposes of drug dosing, the eGFR should be multiplied by the estimated BMI. CHEM PANEL Chloride Lvl 106 meq/L 95 - 109 03/31 [facility] CHEM PANEL Calcium Lvl 8.4 mg/dL 8.5 - 10.5 03/31 [facility] CHEM PANEL CO2 28 meq/L 24 - 32 03/31 [facility] CHEM PANEL Potassium 3.9 meq/L 3.5 - 5.1 03/31 Lvl /2015 [facility] CHEM PANEL Sodium Lvl 139 meq/L 135 - 145 03/31 [facility] CHEM PANEL Creatinine 0.87 mg/dL 0.50 - 03/31 [facility] Lvl 1.40 [facility] CHEM PANEL BUN 8 mg/dL 7 - 03/31 [facility] CHEM PANEL Glucose Lvl 84 mg/dL 70 - 99 03/31 [facility] CHEM PANEL AGAP 8.9 meq/L 10.0 - 03/31 [facility] 20.0 [facility] HEMATOLOGY WBC 6.5 K/CMM 3.7 - 10.4 03/31 [facility] HEMATOLOGY Hgb 12.5 g/dL 12.0 - 03/31 [facility] 16.0 [facility] HEMATOLOGY Hct 38.7 % 36.0 - 03/31 MH 48.0 [facility] HEMATOLOGY Platelet 213 K/CMM 133 - 450 03/31 [facility] HEMATOLOGY RBC 4.36 M/CMM 4.20 - 03/31 MH 5.40 /2015 [facility] HEMATOLOGY MCV 88.7 fL 80.0 - 03/31 MH 98.0 /2015 [facility] HEMATOLOGY MCH 28.7 pg 27.0 - 03/31 MH 31.0 [facility] HEMATOLOGY MCHC 32.3 g/dL 32.0 - 03/31 MH 36.0 /2015 [facility] HEMATOLOGY MPV 9.0 fL 7.4 - 10.4 03/31 [facility] HEMATOLOGY RDW 14.7 % 11.5 - 03/31 MH 14. [facility] HEMATOLOGY Eosinophils 0.1 K/CMM 0.0 - 0.5 03/31 MH # /2016 [facility] HEMATOLOGY Segs-Bands # 3.7 K/CMM 1.5 - 8.1 03/31 [facility] HEMATOLOGY Lymphocytes 2.3 K/CMM 1.0 - 5.5 03/31 MH # /2016 [facility] HEMATOLOGY Monocytes # 0.3 K/CMM 0.0 - 0.8 03/31 [facility] HEMATOLOGY Basophils # 0.1 K/CMM 0.0 - 0.2 03/31 /2015 [facility] HEMATOLOGY Basophils 1.0 % 0.0 - 1.0 03/31 [facility] HEMATOLOGY Monocytes 4.0 % 2.0 - 12.0 03/31 [facility] HEMATOLOGY Eosinophils 1.9 % 0.0 - 4.0 03/31 [facility] HEMATOLOGY Segs 57.9 % 45.0 - 03/31 MH 75.0 /2016 [facility] HEMATOLOGY Lymphocytes 35.2 % 20.0 - 03/31 MH 40.0 /2016 [facility] HEMATOLOGY PTT 28.8 s 22.9 - 03/31 MH 35.8 /2015 [facility] HEMATOLOGY PT 12.8 s 12.0 - 03/31 14.7 /2015 [facility] HEMATOLOGY INR 0.93 0.85 - 03/31 1.17 /2015 [facility] HEMATOLOGY D-Dimer 0.80 ug/mL 03/31 FEU /2015 [facility] URINE AND UA Color Ltyellow 03/31 STOOL [facility] URINE AND UA <=1.0 0.1 - 1.0 03/31 STOOL Urobilinogen mg/dL /2015 [facility] URINE AND UA Ketones Negative Negative 03/31 STOOL mg/dL mg/dL /2015 [facility] URINE AND UA Protein Negative Negative 03/31 STOOL mg/dL mg/dL /2015 [facility] URINE AND UA Glucose Negative Negative 03/31 STOOL mg/dL mg/dL /2015 [facility] URINE AND UA pH 7.0 5.0 - 8.0 03/31 STOOL [facility] URINE AND UA Bili Negative Negative 03/31 STOOL [facility] *NA* (03/31/15 11:59 AM) URINE AND UA Blood Negative Negative 03/31 STOOL [facility] (03/31/15 11:59 AM) URINE AND UA Nitrite Negative Negative 03/31 STOOL [facility] (03/31/15 11:59 AM) URINE AND UA Leuk Est Negative Negative 03/31 STOOL [facility] (03/31/15 11:59 AM) URINE AND UA Sq Epi Occasional Few /LPF 03/31 STOOL /LPF /2015 [facility] URINE AND UA Turbidity Clear Clear 03/31 STOOL [facility] (03/31/15 11:59 AM) URINE AND UA Spec Grav 1.002 <=1.030 03/31 [facility] URINE AND UA RBC 1 /HPF 0 - 2 03/31 [facility] Chest Chest 1view Chest 1view DX 03/31 - 1view DX DX - [facility] CLINICAL HISTORY:Chest pain Read by: Shalom Mccurdy MD Dictated Date/time: 03/31/15 11:54 Electronically Signed by: Shalom Mccurdy MD 03/31/15 11:55 FINAL REPORT COMPARISON: 07/27/2014 FINDINGS: Limited AP portable study. Lungs are reasonably well inflated. No opacities, effusion or pneumothorax. Trachea is midline. Cardiomediastinal silhouette is within normal limits. No pulmonary edema. No significant bony abnormality is noted. IMPRESSION: No acute abnormality is noted. SL: [id number] CHEM PANEL eGFR 84 08/30 Result Comment: The eGFR is calculated using the CKD-EPI formula. In most young, healthy individuals the eGFR will be >90 mL/ min/1.73m2. The eGFR declines with age. An eGFR of 60-89 may be normal in mL/min/1. some populations, particularly the elderly, for whom the CKD-EPI formula has not been extensively validated. Use of the eGFR is not recommended in the following populations: [facility] 3m2 Individuals with unstable creatinine concentrations, including patients and those with serious co-morbid conditions. Patients with extremes in muscle mass or diet. The data above are obtained from the National Kidney Disease Education Program (NKDEP) which additionally recommends that when the eGFR is used in patients with extremes of body mass index for purposes of drug dosing, the eGFR should be multiplied by the estimated BMI. CHEM PANEL Glucose Lvl 88 mg/dL 70 - 99 08/30 [facility] CHEM PANEL CO2 29 meq/L 24 - 32 08/30 [facility] CHEM PANEL Calcium Lvl 8.4 mg/dL 8.5 - 10.5 08/30 [facility] CHEM PANEL Total 6.6 g/dL 6.4 - 8.4 08/30 [facility] CHEM PANEL BUN 7 mg/dL 7 - 08/30 [facility] CHEM PANEL Creatinine 0.9 mg/dL 0.5 - 1.4 08/30 MH Lvl /2014 [facility] CHEM PANEL Albumin Lvl 3.8 g/dL 3.5 - 5.0 08/30 [facility] CHEM PANEL AST 8 unit/L 0 - 37 08/30 [facility] CHEM PANEL ALT 13 unit/L 0 - 65 08/30 [facility] CHEM PANEL Bili Total 0.3 mg/dL 0.2 - 1.3 08/30 [facility] CHEM PANEL Alk Phos 82 unit/L 39 - 136 08/30 [facility] CHEM PANEL Chloride Lvl 103 meq/L 95 - 109 08/30 [facility] CHEM PANEL Potassium 4.1 meq/L 3.5 - 5.1 08/30 Lv [facility] CHEM PANEL Sodium Lvl 139 meq/L 135 - 145 08/30 [facility] CHEM PANEL AGAP 11.1 meq/L 10.0 - 08/30 MH 20.0 [facility] CHEM PANEL Globulin 2.8 g/dL 2.0 - 4.0 08/30 [facility] CHEM PANEL B/C Ratio 8 6 - 25 08/30 [facility] CHEM PANEL A/G Ratio 1.4 0.7 - 1.6 08/30 [facility] HEMATOLOGY Hgb 12.2 g/dL 12.0 - 08/30 MH 16.0 [facility] HEMATOLOGY Platelet 226 K/CMM 133 - 450 08/30 [facility] HEMATOLOGY MCV 90.2 fL 80.0 - 08/30 MH 98.0 [facility] HEMATOLOGY Hct 36.3 % 36.0 - 08/30 MH 48.0 [facility] HEMATOLOGY MCHC 33.7 g/dL 32.0 - 08/30 MH 36.0 /2014 [facility] HEMATOLOGY MCH 30.4 pg 27.0 - 08/30 MH 31.0 /2014 [facility] HEMATOLOGY RBC 4.03 M/CMM 4.20 - 08/30 MH 5.40 /2014 [facility] HEMATOLOGY WBC 6.2 K/CMM 3.7 - 10.4 08/30 [facility] HEMATOLOGY MPV 9.7 fL 7.4 - 10.4 08/30 [facility] HEMATOLOGY RDW 13.3 % 11.5 - 08/30 MH 14.5 [facility] HEMATOLOGY Eosinophils 0.4 K/CMM 0.0 - 0.5 08/30 MH # /2015 [facility] HEMATOLOGY Lymphocytes 2.0 K/CMM 1.0 - 5.5 / MH # /2015 [facility] HEMATOLOGY Segs-Bands # 3.3 K/CMM 1.5 - 8.1 08/30 /2014 [facility] HEMATOLOGY Segs 53.0 % 45.0 - 08/30 MH 75.0 /2014 [facility] HEMATOLOGY Monocytes 7.5 % 2.0 - 12.0 08/30 [facility] HEMATOLOGY Eosinophils 6.5 % 0.0 - 4.0 08/30 /2014 [facility] HEMATOLOGY Lymphocytes 32.4 % 20.0 - 08/30 MH 40.0 /2014 [facility] HEMATOLOGY Monocytes # 0.5 K/CMM 0.0 - 0.8 08/30 [facility] HEMATOLOGY Basophils 0.6 % 0.0 - 1.0 08/30 [facility] CHEM PANEL eGFR 84 08/29 Result Comment: The eGFR is calculated using the CKD-EPI formula. In most young, healthy individuals the eGFR will be >90 mL/ min/1.73m2. The eGFR declines with age. An eGFR of 60-89 may be normal in MH mL/min/1. some populations, particularly the elderly, for whom the CKD-EPI formula has not been extensively validated. Use of the eGFR is not recommended in the following populations: [facility] 3m2 Individuals with unstable creatinine concentrations, including patients and those with serious co-morbid conditions. Patients with extremes in muscle mass or diet. The data above are obtained from the National Kidney Disease Education Program (NKDEP) which additionally recommends that when the eGFR is used in patients with extremes of body mass index for purposes of drug dosing, the eGFR should be multiplied by the estimated BMI. CHEM PANEL Calcium Lvl 8.2 mg/dL 8.5 - 10.5 08/29 [facility] CHEM PANEL Chloride Lvl 106 meq/L 95 - 109 08/29 [facility] CHEM PANEL AGAP 10.0 meq/L 10.0 - 08/29 MH 20.0 [facility] CHEM PANEL CO2 28 meq/L 24 - 32 08/29 [facility] CHEM PANEL Potassium 4.0 meq/L 3.5 - 5.1 08/29 MH Lvl [facility] CHEM PANEL Sodium Lvl 140 meq/L 135 - 145 08/29 [facility] CHEM PANEL Creatinine 0.9 mg/dL 0.5 - 1.4 08/29 [facility] CHEM PANEL BUN 8 mg/dL - 08/29 [facility] CHEM PANEL Glucose Lvl 120 mg/dL 70 - 99 08/29 [facility] CHEM PANEL eGFR 172 08/29 Result Comment: The eGFR is calculated using the CKD-EPI formula. In most young, healthy individuals the eGFR will be >90 mL/ min/1.73m2. The eGFR declines with age. An eGFR of 60-89 may be normal in mL/min/1. some populations, particularly the elderly, for whom the CKD-EPI formula has not been extensively validated. Use of the eGFR is not recommended in the following populations: [facility] 3m2 Individuals with unstable creatinine concentrations, including patients and those with serious co-morbid conditions. Patients with extremes in muscle mass or diet. The data above are obtained from the National Kidney Disease Education Program (NKDEP) which additionally recommends that when the eGFR is used in patients with extremes of body mass index for purposes of drug dosing, the eGFR should be multiplied by the estimated BMI. CHEM PANEL Chloride Lvl 104 meq/L 95 - 109 08/29 [facility] CHEM PANEL Calcium Lvl 8.5 mg/dL 8.5 - 10.5 08/29 [facility] CHEM PANEL Sodium Lvl 134 meq/L 135 - 145 08/29 [facility] CHEM PANEL Potassium See Note 1 3.5 - 5.1 08/29 Result Comment: Grossly hemolyzed. sks notified Lissette Elham 08/29/2014 11:55 [facility] (08/29/14 10:50 AM) CHEM PANEL Creatinine 0.2 mg/dL 0.5 - 1.4 08/29 [facility] CHEM PANEL CO2 27 meq/L 24 - 32 08/29 [facility] CHEM PANEL Glucose Lvl 101 mg/dL 70 - 99 08/29 [facility] CHEM PANEL BUN 9 mg/dL 08/29 [facility] HEMATOLOGY MCH 30.7 pg 27.0 - 08/29 31. [facility] HEMATOLOGY MCHC 34.2 g/dL 32.0 - 08/29 MH 36.0 [facility] HEMATOLOGY RDW 13.7 % 11.5 - 08/29 14. [facility] HEMATOLOGY MCV 90.0 fL 80.0 - 08/29 MH 98.0 /2014 [facility] HEMATOLOGY Hct 39.8 % 36.0 - 08/29 MH 48.0 /2014 [facility] HEMATOLOGY Hgb 13.6 g/dL 12.0 - 08/29 MH 16.0 /2014 [facility] HEMATOLOGY RBC 4.42 M/CMM 4.20 - 08/29 MH 5.40 /2014 [facility] HEMATOLOGY Platelet 237 K/CMM 133 - 450 08/29 /2014 [facility] HEMATOLOGY MPV 10.4 fL 7.4 - 10.4 08/29 /2014 [facility] HEMATOLOGY WBC 6.6 K/CMM 3.7 - 10.4 08/29 /2014 [facility] HEMATOLOGY Lymphocytes 2.0 K/CMM 1.0 - 5.5 08/29 MH # /2014 [facility] HEMATOLOGY Monocytes # 0.4 K/CMM 0.0 - 0.8 08/29 [facility] HEMATOLOGY Eosinophils 0.3 K/CMM 0.0 - 0.5 08/29 # /2014 [facility] HEMATOLOGY Basophils 0.4 % 0.0 - 1.0 08/29 [facility] HEMATOLOGY Eosinophils 3.8 % 0.0 - 4.0 08/29 /2014 [facility] HEMATOLOGY Segs-Bands # 3.8 K/CMM 1.5 - 8.1 08/29 [facility] HEMATOLOGY Segs 57.9 % 45.0 - 08/29 MH 75.0 [facility] HEMATOLOGY Monocytes 6.6 % 2.0 - 12.0 08/29 [facility] HEMATOLOGY Lymphocytes 31.3 % 20.0 - 08/29 MH 40.0 [facility] HEMATOLOGY Sed Rate 1 mm/h 0 - 20 08/29 [facility] IMMUNOLOGY Chlam PCR Negative Negative 08/28 [facility] (08/28/14 12:43 PM) IMMUNOLOGY Source Chlam [employer] 08/28 [facility] IMMUNOLOGY Source [place] [employer] 08/28 [facility] IMMUNOLOGY Gonorrhea Negative Negative 08/28 /2014 [facility] (08/28/14 12:43 PM) CARDIAC BNP 14 pg/mL <=100 08/28 [facility] pg/mL /2014 [facility] HEMATOLOGY Segs 48.0 % 45.0 - 08/28 MH 75.0 [facility] HEMATOLOGY Monocytes # 0.3 K/CMM 0.0 - 0.8 08/28 [facility] HEMATOLOGY Eosinophils 6.1 % 0.0 - 4.0 08/28 MH /2014 [facility] HEMATOLOGY Lymphocytes 39.1 % 20.0 - 08/28 MH 40.0 /2014 [facility] HEMATOLOGY Segs-Bands # 2.7 K/CMM 1.5 - 8.1 08/28 /2014 [facility] HEMATOLOGY Eosinophils 0.3 K/CMM 0.0 - 0.5 08/28 MH # /2014 [facility] HEMATOLOGY Lymphocytes 2.2 K/CMM 1.0 - 5.5 08/28 MH # /2014 [facility] HEMATOLOGY Monocytes 6.1 % 2.0 - 12.0 08/28 /2014 [facility] HEMATOLOGY Basophils 0.7 % 0.0 - 1.0 08/28 /2014 [facility] HEMATOLOGY Platelet 226 K/CMM 133 - 450 08/28 /2014 [facility] HEMATOLOGY MPV 9.4 fL 7.4 - 10.4 08/28 /2014 [facility] HEMATOLOGY RDW 13.1 % 11.5 - 08/28 MH 14.5 /2014 [facility] HEMATOLOGY MCHC 33.2 g/dL 32.0 - 08/28 36.0 /2014 [facility] HEMATOLOGY RBC 3.87 M/CMM 4.20 - 08/28 MH 5.40 /2014 [facility] HEMATOLOGY WBC 5.7 K/CMM 3.7 - 10.4 08/28 /2014 [facility] HEMATOLOGY Hct 35.1 % 36.0 - 08/28 48.0 /2014 [facility] HEMATOLOGY Hgb 11.7 g/dL 12.0 - 08/28 16.0 /2014 [facility] MCH 30.2 pg 27.0 - 08/28 31.0 /2014 [facility] HEMATOLOGY MCV 90.8 fL 80.0 - 08/28 98.0 /2014 [facility] THYROID TSH 3.290 0.360 - 08/28 PANEL uIU/mL 3.740 /2014 [facility] Pelvis w Pelvis w PELVIC ULTRASOUND: 08/28 - Pelvis Pelvis /2014 - [facility] Transvagin Transvaginal al US US CLINICAL HX: Abdomen pain Read by: Shalom Mccurdy MD Dictated Date/time: 08/28/14 10:15 Electronically Signed by: Shalom Mccurdy MD 08/28/14 10:19 FINAL REPORT COMPARISON: CT abdomen pelvis 08/26/2014 TECHNIQUE: Multiple static transabdominal images of the pelvis are submitted for review. FINDINGS: The uterus measures approximately 7.7 cm in the sagittal length. No focal masses are evident. Neither ovary is optimally visualized on the transabdominal study. The bladder is grossly unremarkable in appearance. TRANSVAGINAL ULTRASOUND: TECHNIQUE: Multiple static transvaginal images of the pelvis are submitted for review. FINDINGS: The uterus is unremarkable in appearance. The endometrial stripe measures 13 mm. The right ovary measures 2.9 x 1.7 x 1.9 cm in size, and the left ovary measures 3.3 x 1.7 x 1.9 cm in size. A few follicles are noted in both ovaries. No dominant cyst. No free fluid is present in the cul-de-sac. IMPRESSION: No significant sonographic abnormality is noted. SL:13 Brain wo Brain wo MRI BRAIN W/O CONTRAST: 08/27 contrast contrast MRI /2014 MRI TECHNIQUE: Sagittal T1,T2, SD, IR and diffusion weighted sequence were performed. No IV contrast was administered. Read by: Shalom Mccurdy MD Dictated Date/time: 08/28/14 07:43 Electronically Signed by: Shalom Mccurdy MD 08/28/14 07:57 FINAL REPORT COMPARISON: CT head 08/26/2014 CLINICAL HX: Vertigo FINDINGS: There are no extra-axial fluid collections, intra-axial masses, or midline shift. The rivera-white matter differentiation is well-preserved. There is no evidence for an acute infarct. The ventri cles are of normal size. The visualized brain stent IACs demonstrate normal morphology. CSF extends into the pituitary fossa with flattening of the pituitary gland giving an appearance of partially empt y sella. The usual flow voids for the carotids and the vertebrobasilar system are preserved. No significant inflammatory change is present in the sinuses. IMPRESSION: Partially empty sella is noted. Although this can be an incidental finding , this can also be seen in the setting of intracranial hypertension. Correlation with other clinical data is recommended. No other significant abnormality is noted on the noncontrast brain MRI. SL:13 Brain wo Brain wo MRA [place]: 08/27 contrast contrast MRA /2014 MRA CLINICAL HX: Vertigo Read by: Shalom Mccurdy MD Dictated Date/time: 08/28/14 07:48 Electronically Signed by: Shalom Mccurdy MD 08/28/14 07:51 FINAL REPORT COMPARISON: MRI brain 08/27/2014 TECHNIQUE: 3-D [id number] images of the [place] were performed. Images were reformatted in the sagittal and coronal projections. FINDINGS: The petrous, cavernous, and supraclinoid portions of the carotids bilaterally demonstrate normal signal. The A1, A2, M1 and M2 segments of the anterior and middle cerebral arteries do not demo nstrate any focal loss of signal to suggest any significant stenosis. No gross aneurysm is identified. Both vertebral arteries, basilar artery, [employer], and SCA demonstrate normal signal. No gross aneurysm is identified in the posterior circulation. IMPRESSION: No significant abnormality is noted on the MRA of [place]. SL:13 CHEM PANEL Bili Total 0.2 mg/dL 0.2 - 1.3 08/27 [facility] CHEM PANEL Alk Phos 69 unit/L 39 - 136 08/27 [facility] CHEM PANEL Total 6.0 g/dL 6.4 - 8.4 08/27 [facility] CHEM PANEL B/C Ratio 11 6 - 25 08/27 [facility] CHEM PANEL AGAP 12.9 meq/L 10.0 - 08/27 20.0 [facility] CHEM PANEL AST 7 unit/L 0 - 37 08/27 [facility] CHEM PANEL ALT 14 unit/L 0 - 65 08/27 [facility] CHEM PANEL Globulin 3.0 g/dL 2.0 - 4.0 08/27 [facility] CHEM PANEL Albumin Lvl 3.0 g/dL 3.5 - 5.0 08/27 [facility] CHEM PANEL A/G Ratio 1.0 0.7 - 1.6 08/27 [facility] URINE AND UA <=1.0 0.1 - 1.0 08/26 STOOL Urobilinogen mg/dL /2014 [facility] URINE AND UA Color Ltyellow 08/26 STOOL [facility] URINE AND UA Bacteria Occasional None Seen 08/26 STOOL /HPF /HPF /2014 [facility] URINE AND UA RBC 1 /HPF 0 - 2 08/26 STOOL [facility] URINE AND UA Sq Epi Occasional Few /LPF 08/26 STOOL /LPF /2014 [facility] URINE AND UA WBC 1 /HPF 0 - 5 08/26 STOOL [facility] URINE AND UA Nitrite Negative Negative 08/26 STOOL [facility] (08/26/14 2:06 PM) URINE AND UA Leuk Est Negative Negative 08/26 STOOL [facility] (08/26/14 2:06 PM) URINE AND UA Blood Negative Negative 08/26 STOOL [facility] (08/26/14 2:06 PM) URINE AND UA Bili Negative Negative 08/26 STOOL [facility] *NA* (08/26/14 2:06 PM) URINE AND UA Protein Negative Negative 08/26 STOOL mg/dL mg/dL URINE AND UA Glucose Negative Negative 08/26 STOOL mg/dL mg/dL [facility] URINE AND UA Ketones Negative Negative 08/26 STOOL mg/dL mg/dL [facility] URINE AND UA Spec Grav 1.013 <=1.030 08/26 STOOL [facility] URINE AND UA pH 7.0 5.0 - 8.0 08/26 STOOL [facility] URINE AND UA Turbidity Clear Clear 08/26 STOOL [facility] (08/26/14 2:06 PM) URINE CHEM U Preg Negative Negative 08/26 [facility] (08/26/14 2:06 PM) CARDIAC Total CK 101 unit/L 12 - 191 08/26 ENZYMES [facility] CARDIAC CK MB null 0.5 - 3.6 08/26 ENZYMES [facility] CARDIAC Troponin-I null 0.00 - 08/26 [facility] 0.40 /2014 [facility] CARDIAC CK MB Index null 0.0 - 2.5 08/26 [facility]ES [facility] CHEM PANEL Lipase Lvl 113 unit/L 73 - 393 08/26 [facility] CHEM PANEL Total 7.7 g/dL 6.4 - 8.4 08/26 Protein [facility] CHEM PANEL Albumin Lvl 4.0 g/dL 3.5 - 5.0 08/26 [facility] CHEM PANEL AST 12 unit/L 0 - 37 08/26 [facility] CHEM PANEL ALT 17 unit/L 0 - 65 08/26 [facility] CHEM PANEL Alk Phos 84 unit/L 39 - 136 08/26 [facility] CHEM PANEL Bili Total 0.2 mg/dL 0.2 - 1.3 08/26 [facility] CHEM PANEL B/C Ratio 8 6 - 25 08/26 [facility] CHEM PANEL Globulin 3.7 g/dL 2.0 - 4.0 08/26 [facility] CHEM PANEL A/G Ratio 1.1 0.7 - 1.6 08/26 [facility] CHEM PANEL Amylase Lvl 80 unit/L 25 - 115 08/26 [facility] HEMATOLOGY PT 18.6 s 12.0 - 08/26 MH 14.7 /2014 [facility] HEMATOLOGY INR 1.52 0.85 - 08/26 MH 1.17 /2014 [facility] HEMATOLOGY PTT 40.7 s 22.9 - 08/26 MH 35.8 /2014 [facility] ED ED HISTORY: Abdominal pain. 08/26 Abdomen/Pe Abdomen/Pelv /2014 - [facility] lvis IV is IV contrast contrast only CT only CT CT abdomen and pelvis performed with IV contrast. Read by: Augie Klein MD Dictated Date/time: 08/26/14 16:27 Electronically Signed by: Augie Klein MD 08/26/14 16:31 FINAL REPORT Comparison 08/06/2014. 04/04/2014. Previous cholecystectomy. Minimally prominent intrahepatic bile ducts and common bile duct, although unchanged from 04/04/2014. Liver, spleen, pancreas, adrenal glands and kidneys demonstrate no acute finding otherwise. No bowel obstruction or distention, free air or pathologic fluid. Appendix not visualized. Retroverted uterus. No pathologic pelvic fluid mass or inflammation is otherwise noted. IMPRESSION: No acute finding. SL:13 Brain wo Brain wo PROCEDURE: Brain wo contrast CT 08/[address] /2014 - [facility] CT CLINICAL INDICATION: Focal neurological deficit Read by: Marc Chappell MD Dictated Date/time: 08/26/14 16:25 COMPARISON: 01/08/2011. Electronically Signed by: Marc Chappell MD 08/26/14 16:27 FINAL REPORT FINDINGS: The extra-axial space, rivera-white differentiation, ventricles and cisterns are normal. There is no hemorrhage or midline shift. IMPRESSION: No evidence for hemorrhage, mass lesion or acute infarct. DLP: 956 mGy-cm SL: 16 Chest Chest 1view HISTORY: Focal neurological deficit. 08/26 1view DX - [facility] Chest one view. Read by: Augie Klein MD Dictated Date/time: 08/26/14 15:04 Electronically Signed by: Augie Klein MD 08/26/14 15:04 FINAL REPORT No previous for comparison. Lungs are clear. Cardiomediastinal silhouette normal. No pleural effusion or pneumothorax. Monitoring leads overlie the chest. IMPRESSION: Negative SL:13 HEMATOLOGY Segs 56.3 % 45.0 - 07/ MH 75.0 /2014 [facility] HEMATOLOGY Lymphocytes 25.6 % 20.0 - 07/ MH 40.0 /2014 [facility] HEMATOLOGY Monocytes 6.7 % 2.0 - 12.0 / /2014 [facility] HEMATOLOGY Eosinophils 11.1 % 0.0 - 4.0 / /2014 [facility] HEMATOLOGY Basophils 0.3 % 0.0 - 1.0 / /2014 [facility] HEMATOLOGY Segs-Bands # 4.0 K/CMM 1.5 - 8.1 / [facility] HEMATOLOGY Lymphocytes 1.8 K/CMM 1.0 - 5.5 / /2014 [facility] HEMATOLOGY Monocytes # 0.5 K/CMM 0.0 - 0.8 / [facility] Eosinophils 0.8 K/CMM 0.0 - 0.5 08/10 /2014 [facility] WBC 7.0 K/CMM 3.7 - 10.4 08/10 [facility] Platelet 184 K/CMM 133 - 450 07/ [facility] MPV 9.5 fL 7.4 - 10.4 08/10 [facility] MCH 30.7 pg 27.0 - 07/ MH 31.0 /2014 [facility] MCHC 33.8 g/dL 32.0 - 08/10 MH 36.0 /2014 [facility] MCV 90.9 fL 80.0 - 08/10 MH 98.0 /2014 [facility] RDW 14.1 % 11.5 - 07 MH 14.5 /2014 [facility] RBC 3.90 M/CMM 4.20 - 07/ MH 5.40 /2014 [facility] Hgb 12.0 g/dL 12.0 - 08/10 MH 16.0 /2014 [facility] Hct 35.5 % 36.0 - 08/10 MH 48.0 /2014 [facility] CHEM PANEL eGFR 120 08/09 1Result Comment: The eGFR is calculated using the CKD-EPI formula. In most young, healthy individuals the eGFR will be > 90 mL/min/1.73m2. The eGFR declines with age. An eGFR of 60-89 may be normal in MH mL/min/1.7 /2014 some populations, particularly the elderly, for whom the CKD-EPI formula has not been extensively validated. Use of the eGFR is not recommended in the following populations: [facility] 3m2 Individuals with unstable creatinine concentrations, including patients and those with serious co-morbid conditions. Patients with extremes in muscle mass or diet. The data above are obtained from the National Kidney Disease Education Program (NKDEP) which additionally recommends that when the eGFR is used in patients with extremes of body mass index for purposes of drug dosing, the eGFR should be multiplied by the estimated BMI. CHEM PANEL BUN 6 mg/dL 7 - 22 08/09 [facility] CHEM PANEL Calcium Lvl 7.8 mg/dL 8.5 - 10.5 08/09 [facility] CHEM PANEL Glucose Lvl 83 mg/dL 70 - 99 08/09 4Interpretive Data: Adult reference range values reflect the clinical guidelines of the [place] [employer]. [facility] CHEM PANEL AGAP 10.8 meq/L 10.0 - 08/09 20.0 [facility] CHEM PANEL Creatinine 0.6 mg/dL 0.5 - 1.4 08/09 Lvl [facility] CHEM PANEL CO2 24 meq/L 24 - 32 08/09 [facility] CHEM PANEL Potassium 3.8 meq/L 3.5 - 5.1 08/09 Lv [facility] CHEM PANEL Chloride Lvl 110 meq/L 95 - 109 08/09 [facility] CHEM PANEL Sodium Lvl 141 meq/L 135 - 145 08/09 [facility] HEMATOLOGY Segs 45.3 % 45.0 - 07 MH 75.0 /2014 [facility] HEMATOLOGY Monocytes 5.5 % 2.0 - 12.0 08/09 [facility] HEMATOLOGY Lymphocytes 39.2 % 20.0 - 07 MH 40.0 /2014 [facility] HEMATOLOGY Eosinophils 9.5 % 0.0 - 4.0 08/09 [facility] HEMATOLOGY Basophils 0.5 % 0.0 - 1.0 08/09 [facility] HEMATOLOGY Segs-Bands # 3.0 K/CMM 1.5 - 8.1 08/09 [facility] HEMATOLOGY Eosinophils 0.6 K/CMM 0.0 - 0.5 08/09 # /2014 [facility] HEMATOLOGY Monocytes # 0.4 K/CMM 0.0 - 0.8 /2014 [facility] HEMATOLOGY Lymphocytes 2.6 K/CMM 1.0 - 5.5 / # /2014 [facility] HEMATOLOGY RDW 13.9 % 11.5 - 08/09 MH 14.5 /2014 [facility] HEMATOLOGY MCHC 33.5 g/dL 32.0 - 08/09 MH 36.0 /2014 [facility] HEMATOLOGY RBC 3.60 M/CMM 4.20 - 08/09 MH 5.40 /2014 [facility] HEMATOLOGY Hgb 11.1 g/dL 12.0 - 08/09 MH 16.0 /2014 [facility] HEMATOLOGY WBC 6.7 K/CMM 3.7 - 10.4 08/09 /2014 [facility] HEMATOLOGY MPV 9.8 fL 7.4 - 10.4 08/09 /2014 [facility] MCH 30.8 pg 27.0 - 08/09 31.0 /2014 [facility] Platelet 174 K/CMM 133 - 450 08/09 [facility] Hct 33.0 % 36.0 - 08/09 48.0 /2014 [facility] HEMATOLOGY MCV 91.8 fL 80.0 - 08/09 98.0 /2014 [facility] ELECTROLYT Chloride Lvl 107 meq/L 95 - 109 08/08 ES [facility] ELECTROLYT Sodium Lvl 139 meq/L 135 - 145 08/08 ES [facility] ELECTROLYT Calcium Lvl 7.6 mg/dL 8.5 - 10.5 08/08 /2014 [facility] ELECTROLYT Potassium 3.9 meq/L 3.5 - 5.1 08/08 ES Lvl /2014 [facility] ELECTROLYT eGFR 97 08/08 2Result Comment: The eGFR is calculated using the CKD-EPI formula. In most young, healthy individuals the eGFR will be >90 mL/ min/1.73m2. The eGFR declines with age. An eGFR of 60-89 may be normal in ES mL/min/1.7 /2014 some populations, particularly the elderly, for whom the CKD-EPI formula has not been extensively validated. Use of the eGFR is not recommended in the following populations: [facility] 3m2 Individuals with unstable creatinine concentrations, including patients and those with serious co-morbid conditions. Patients with extremes in muscle mass or diet. The data above are obtained from the National Kidney Disease Education Program (NKDEP) which additionally recommends that when the eGFR is used in patients with extremes of body mass index for purposes of drug dosing, the eGFR should be multiplied by the estimated BMI. ELECTROLYT Creatinine 0.8 mg/dL 0.5 - 1.4 / ES Lvl /2014 [facility] ELECTROLYT BUN 6 mg/dL 7 - 22 / ES /2014 [facility] ELECTROLYT Glucose Lvl 79 mg/dL 70 - 99 / 5Interpretive Data: Adult reference range values reflect the clinical guidelines of the [place] [employer]. [facility] ELECTROLYT CO2 25 meq/L 24 - 32 07/ ES /2014 [facility] ELECTROLYT AGAP 10.9 meq/L 10.0 - 08/08 ES 20.0 /2014 [facility] HEMATOLOGY MCH 30.8 pg 27.0 - 08/08 MH 31.0 /2014 [facility] HEMATOLOGY MCHC 33.9 g/dL 32.0 - 07 MH 36.0 /2014 [facility] HEMATOLOGY MCV 91.0 fL 80.0 - 08/08 MH 98.0 /2014 [facility] HEMATOLOGY Hct 32.9 % 36.0 - 08/08 48.0 /2014 [facility] HEMATOLOGY Hgb 11.1 g/dL 12.0 - 08/08 MH 16.0 /2014 [facility] HEMATOLOGY MPV 9.9 fL 7.4 - 10.4 / /2014 [facility] HEMATOLOGY Platelet 185 K/CMM 133 - 450 / /2014 [facility] HEMATOLOGY RDW 14.1 % 11.5 - 07/ 14.5 /2014 [facility] HEMATOLOGY WBC 6.4 K/CMM 3.7 - 10.4 / /2014 [facility] HEMATOLOGY RBC 3.61 M/CMM 4.20 - 07/ MH 5.40 /2014 [facility] HEMATOLOGY Eosinophils 0.2 K/CMM 0.0 - 0.5 / MH # /2014 [facility] HEMATOLOGY Monocytes 6.1 % 2.0 - 12.0 / /2014 [facility] HEMATOLOGY Segs-Bands # 3.5 K/CMM 1.5 - 8.1 / /2014 [facility] HEMATOLOGY Eosinophils 3.8 % 0.0 - 4.0 / /2014 [facility] HEMATOLOGY Lymphocytes 2.2 K/CMM 1.0 - 5.5 / MH # /2014 [facility] HEMATOLOGY Basophils 0.6 % 0.0 - 1.0 / /2014 [facility] HEMATOLOGY Monocytes # 0.4 K/CMM 0.0 - 0.8 08/08 [facility] HEMATOLOGY Lymphocytes 34.8 % 20.0 - / MH 40.0 /2014 [facility] HEMATOLOGY Segs 54.7 % 45.0 - 08/08 75.0 /2014 [facility] ELECTROLYT AGAP 12.2 meq/L 10.0 - 08/07 ES 20.0 [facility] ELECTROLYT eGFR 97 08/07 3Result Comment: The eGFR is calculated using the CKD-EPI formula. In most young, healthy individuals the eGFR will be >90 mL/ min/1.73m2. The eGFR declines with age. An eGFR of 60-89 may be normal in [facility] mL/min/1.7 some populations, particularly the elderly, for whom the CKD-EPI formula has not been extensively validated. Use of the eGFR is not recommended in the following populations: [facility] 3m2 Individuals with unstable creatinine concentrations, including patients and those with serious co-morbid conditions. Patients with extremes in muscle mass or diet. The data above are obtained from the National Kidney Disease Education Program (NKDEP) which additionally recommends that when the eGFR is used in patients with extremes of body mass index for purposes of drug dosing, the eGFR should be multiplied by the estimated BMI. ELECTROLYT Creatinine 0.8 mg/dL 0.5 - 1.4 08/07 [facility] ELECTROLYT BUN 8 mg/dL 7 - 22 08/07 [facility] ELECTROLYT Sodium Lvl 139 meq/L 135 - 145 08/07 [facility] ELECTROLYT Chloride Lvl 106 meq/L 95 - 109 08/07 [facility] ELECTROLYT Potassium 4.2 meq/L 3.5 - 5.1 08/07 Lv [facility] ELECTROLYT Calcium Lvl 8.2 mg/dL 8.5 - 10.5 08/07 [facility] ELECTROLYT CO2 25 meq/L 24 - 32 08/07 [facility] ELECTROLYT Glucose Lvl 80 mg/dL 70 - 99 08/07 6Interpretive Data: Adult reference range values reflect the clinical guidelines of the [place] [employer]. [facility] HEMATOLOGY Basophils # 0.1 K/CMM 0.0 - 0.2 08/07 [facility] Abdomen/Pe Abdomen/Pelv I. CT SCAN of the ABDOMEN without contrast 08/06 - MH lvis wo IV is wo IV /2014 [facility] contrast contrast CT II. CT SCAN of the PELVIS without contrast CT Read by: Irwin Yanez MD Dictated Date/time: 08/06/14 18:23 Electronically Signed by: Irwin Yanez MD 08/06/14 18:34 FINAL REPORT HISTORY: Abdominal pain. A prior study of 04/04/[address] SCAN of the ABDOMEN without contrast Technique: Helical CT images were obtained from the domes of the diaphragms to the iliac crests following administration of oral contrast. Intravenous contrast was not administered. II. CT SCAN of the PELVIS without contrast Technique: Helical CT images were obtained from the iliac crests to the pubic symphysis following the administration of oral contrast. Intravenous contrast was not administered. Sagittal and coronal reconstructions were provided. FINDINGS: There is no free intraperitoneal gas, abscess, focal inflammation , or other evidence of an acute intra-abdominal process. Status post cholecystectomy. Surgical clips are noted in the right upper quadrant. There is no evidence of biliary ductal dilatation. The liver, spleen, pancreas, and adrenals are normal in appearance. The kidneys are normal in size without hydronephrosis. No renal calculi are seen. Evaluation of the solid organs is limited due to lack of intravenous contrast. The gastrointestinal structures are unremarkable. There is no evidence of obstruction or ileus. A normal appendix was visualized. There are no findings to suggest appendicitis. There is no evidence of obstruction or ileus. There is a minimal amount of free fluid within the pelvis which is nonspecific. There is no generalized ascites. There no masses, other fluid collections, or other focal abnormalities within the abdomen. There is a very small left inguinal hernia. The hernia sac measures approximately 15 mm per there is no herniation of bowel. There are small gas densities in the subcutaneous tissues of the intra- abdominal wall presumably related to subcutaneous injections. The visualized lung bases are clear. There are no pleural effusions. The heart is normal in size. There is no pericardial effusion. The regional skeleton is unremarkable. CONCLUSION: 1. No evidence of an acute intra-abdominal process. 2. Status post cholecystectomy. 3. Normal appendix. 4. Minimal amount of free fluid within the pelvis which is nonspecific but likely to be within normal limits. 5. Very small left inguinal hernia. Coding: Abdomen/pelvis w/o contrast CT SL: 13 Irwin Yanez M.D. URINE AND UA <=1.0 0.1 - 1.0 08/06 STOOL Urobilinogen mg/dL /2014 [facility] URINE AND UA Color Ltyellow 08/06 [facility] URINE AND UA Mucus Many /LPF None Seen 08/06 STOOL /LPF [facility] URINE AND UA Bacteria Occasional None Seen 08/06 STOOL /HPF /HPF [facility] URINE AND UA RBC 3 /HPF 0 - 2 08/06 [facility] URINE AND UA WBC 1 /HPF 0 - 5 08/06 [facility] URINE AND UA Leuk Est Negative Negative 08/06 [facility] (08/06/14 11:41 AM) URINE AND UA Sq Epi Occasional Few /LPF 08/06 STOOL /LPF [facility] URINE AND UA pH 6.0 5.0 - 8.0 08/06 [facility] URINE AND UA Protein Negative Negative 08/06 [facility] mg/dL mg/dL [facility] URINE AND UA Ketones Negative Negative 08/06 [facility] mg/dL mg/dL [facility] URINE AND UA Glucose Negative Negative 08/06 [facility] mg/dL mg/dL [facility] URINE AND UA Nitrite Negative Negative 08/06 [facility] (08/06/14 11:41 AM) URINE AND UA Bili Negative Negative 08/06 [facility] *NA* (08/06/14 11:41 AM) URINE AND UA Blood Negative Negative 08/06 [facility] (08/06/14 11:41 AM) URINE AND UA Spec Grav 1.013 <=1.030 08/06 [facility] URINE AND UA Turbidity Clear Clear 08/06 [facility] (08/06/14 11:41 AM) URINE CHEM U Preg Negative Negative 08/06 [facility] (08/06/14 11:41 AM) HEMATOLOGY Basophils # 0.1 K/CMM 0.0 - 0.2 08/06 [facility] HEMATOLOGY INR 1.06 0.85 - 08/06 7Interpretive Data: RECOMMENDED RANGES FOR PROTIME INR: 1. 2.0-3.0 for most medical and surgical thromboembolic states. [facility] 2.5-3.5 for artificial heart valves and recurrent embolism. INR SHOULD BE USED ONLY FOR PATIENTS ON STABLE ANTICOAGULANT THERAPY. HEMATOLOGY PT 13.8 s 12.0 - 08/06 14.7 [facility] CHEM PANEL Total 7.6 g/dL 6.4 - 8.4 08/05 [facility] CHEM PANEL AST 9 unit/L 0 - 37 08/05 [facility] CHEM PANEL Albumin Lvl 4.5 g/dL 3.5 - 5.0 08/05 [facility] CHEM PANEL ALT 14 unit/L 0 - 65 08/05 [facility] CHEM PANEL Alk Phos 84 unit/L 39 - 136 08/05 [facility] CHEM PANEL Bili Total 0.2 mg/dL 0.2 - 1.3 08/05 [facility] CHEM PANEL Globulin 3.1 g/dL 2.0 - 4.0 08/05 [facility] CHEM PANEL A/G Ratio 1.5 0.7 - 1.6 08/05 [facility] CHEM PANEL B/C Ratio 12 6 - 25 08/05 [facility] HEMATOLOGY Basophils # 0.1 K/CMM 0.0 - 0.2 08/05 [facility] HEMATOLOGY PT 12.3 s 12.0 - 08/05 14.7 [facility] HEMATOLOGY PTT 32.0 s 22.9 - 08/05 9Interpretive 35.8 /2014 Data: Heparin [facility] Therapeutic Range: 57 - 92 Seconds HEMATOLOGY INR 0.92 0.85 - 08/05 8Interpretive Data: RECOMMENDED RANGES FOR PROTIME INR: 1. 2.0-3.0 for most medical and surgical thromboembolic states. [facility] 2.5-3.5 for artificial heart valves and recurrent embolism. INR SHOULD BE USED ONLY FOR PATIENTS ON STABLE ANTICOAGULANT THERAPY. Ext Upper Ext Upper LEFT UPPER EXTREMITY DOPPLER ULTRASOUND 08/05 - Venous Venous /2014 - [facility] Doppler Doppler Unilat US Unilat US INDICATION: Left arm pain, evaluate for venous thrombosis Read by: Lawrence Samson MD Dictated Date/time: 08/05/14 14:28 Electronically Signed by: Lawrence Samson MD 08/05/14 14:31 FINAL REPORT COMPARISON: None DISCUSSION: Grayscale, color Doppler, and spectral waveform analysis of the left upper extremity venous system and internal jugular vein were performed. The internal jugular, axillary, brachial, basilic, and cephal ic veins are compressible and demonstrate normal spontaneous phasic waveforms. The subclavian vein demonstrates normal waveforms. There is complete thrombosis of the radial vein of the left forearm. IMPRESSION: Complete thrombosis of the radial vein of the left forearm. SL: 16 CHEM PANEL Amylase Lvl 72 unit/L 25 - 115 04/04 [facility] CHEM PANEL Lipase Lvl 145 unit/L 73 - 393 04/04 [facility] ELECTROLYT Potassium 3.6 meq/L 3.5 - 5.1 04/04 ES Lvl [facility] ELECTROLYT Chloride Lvl 105 meq/L 95 - 109 04/04 [facility] ELECTROLYT Sodium Lvl 139 meq/L 135 - 145 04/04 [facility] ELECTROLYT CO2 28 meq/L 24 - 32 04/04 [facility] ELECTROLYT eGFR 97 04/04 1Result Comment: The eGFR is calculated using the CKD-EPI formula. In most young, healthy individuals the eGFR will be >90 mL/ min/1.73m2. The eGFR declines with age. An eGFR of 60-89 may be normal in mL/min/1.7 some populations, particularly the elderly, for whom the CKD-EPI formula has not been extensively validated. Use of the eGFR is not recommended in the following populations: [facility] 3m2 Individuals with unstable creatinine concentrations, including patients and those with serious co-morbid conditions. Patients with extremes in muscle mass or diet. The data above are obtained from the National Kidney Disease Education Program (NKDEP) which additionally recommends that when the eGFR is used in patients with extremes of body mass index for purposes of drug dosing, the eGFR should be multiplied by the estimated BMI. ELECTROLYT Total 7.5 g/dL 6.4 - 8.4 04/04 ES Protein [facility] ELECTROLYT AST 13 unit/L 0 - 37 04/04 [facility] ELECTROLYT Bili Total 0.2 mg/dL 0.2 - 1.3 04/04 [facility] ELECTROLYT Calcium Lvl 8.4 mg/dL 8.5 - 10.5 04/04 [facility] ELECTROLYT Creatinine 0.8 mg/dL 0.5 - 1.4 04/04 Lvl [facility] ELECTROLYT ALT 22 unit/L 0 - 65 04/04 [facility] ELECTROLYT Albumin Lvl 4.1 g/dL 3.5 - 5.0 04/04 [facility] ELECTROLYT Alk Phos 87 unit/L 39 - 136 04/04 [facility] ELECTROLYT Glucose Lvl 76 mg/dL 70 - 99 04/04 2Interpretive Data: Adult reference range values reflect the clinical guidelines of the [place] [employer]. [facility] ELECTROLYT BUN 8 mg/dL 7 - 22 04/04 [facility] ELECTROLY[facility] AGAP 9.6 meq/L 10.0 - 04/04 ES 20.0 [facility] A/G Ratio 1.2 0.7 - 1.6 04/04 [facility] E[facility] B/C Ratio 10 6 - 25 04/04 [facility] Globulin 3.4 g/dL 2.0 - 4.0 04/04 [facility] HEMATOLOGY MCHC 33.1 g/dL 32.0 - 04/04 MH 36.0 /2014 [facility] HEMATOLOGY MCH 30.4 pg 27.0 - 04/04 MH 31.0 [facility] HEMATOLOGY RDW 13.8 % 11.5 - 04/04 MH 14.5 /2014 [facility] HEMATOLOGY MCV 91.9 fL 80.0 - 04/04 MH 98.0 /2014 [facility] HEMATOLOGY Hct 36.0 % 36.0 - 04/04 MH 48.0 /2014 [facility] HEMATOLOGY MPV 9.0 fL 7.4 - 10.4 04/04 /2014 [facility] HEMATOLOGY Platelet 227 K/CMM 133 - 450 04/04 [facility] HEMATOLOGY RBC 3.92 M/CMM 4.20 - 04/04 MH 5.40 /2014 [facility] HEMATOLOGY WBC 4.6 K/CMM 3.7 - 10.4 04/04 /2014 [facility] HEMATOLOGY Hgb 11.9 g/dL 12.0 - 04/04 MH 16.0 /2014 [facility] HEMATOLOGY Eosinophils 0.1 K/CMM 0.0 - 0.5 04/04 MH /2014 [facility] HEMATOLOGY Segs 54.4 % 45.0 - 04/04 MH 75.0 /2014 [facility] HEMATOLOGY Lymphocytes 36.0 % 20.0 - 04/04 MH 40.0 /2014 [facility] HEMATOLOGY Monocytes 7.1 % 2.0 - 12.0 04/04 [facility] HEMATOLOGY Eosinophils 1.7 % 0.0 - 4.0 04/04 [facility] HEMATOLOGY Basophils 0.8 % 0.0 - 1.0 04/04 [facility] HEMATOLOGY Segs-Bands # 2.5 K/CMM 1.5 - 8.1 04/04 [facility] HEMATOLOGY Monocytes # 0.3 K/CMM 0.0 - 0.8 04/04 [facility] HEMATOLOGY Lymphocytes 1.6 K/CMM 1.0 - 5.5 04/04 # [facility] URINE AND UA Sq Epi None Seen Few 04/04 STOOL [facility] (04/04/14 12:07 PM) URINE AND UA WBC None Seen None Seen 04/04 [facility] (04/04/14 12:07 PM) URINE AND UA RBC None Seen 0 - 2 04/04 (04/04/14 12:07 PM) URINE AND UA Bacteria None Seen None Seen 04/04 [facility] (04/04/14 12:07 PM) URINE AND UA Leuk Est Negative Negative 04/04 [facility] (04/04/14 12:07 PM) URINE AND UA Nitrite Negative Negative 04/04 STOOL [facility] (04/04/14 12:07 PM) URINE AND UA Protein Negative Negative 04/04 [facility] (04/04/14 12:07 PM) URINE AND UA pH 6.0 5.0 - 8.0 04/04 URINE AND UA 0.2 EU/dL 0.1 - 1.0 04/04 STOOL Urobilinogen [facility] URINE AND UA Spec Grav <=1.005 <=1.030 04/04 STOOL
*NA*< [facility] br/>( 12:07 PM) URINE AND UA Glucose Negative Negative 04/04 [facility] (04/04/14 12:07 PM) URINE AND UA Ketones Negative Negative 04/04 [facility] *NA* (04/04/14 12:07 PM) URINE AND UA Bili Negative Negative 04/04 [facility] *NA* (04/04/14 12:07 PM) URINE AND UA Blood Small Negative 04/04 [facility] *ABN* (04/04/14 12:07 PM) URINE AND UA Color Yellow Yellow 04/04 [facility] *NA* (04/04/14 12:07 PM) URINE AND UA Turbidity Clear Clear 04/04 STOOL [facility] (04/04/14 12:07 PM) URINE CHEM U Preg Negative Negative 04/04 [facility] (04/04/14 12:07 PM) Abdomen/Pe Abdomen/Pelv PROCEDURE: Abdomen/Pelvis w contrast CT 04/04 - lvis w IV is w IV /2014 - [facility] contrast contrast CT REASON FOR EXAM: appy CT CLINICAL INFORMATION Abdominal pain, acute Read by: Marc Chappell MD Dictated Date/time: 04/04/14 14:17 Electronically Signed by: Marc Chappell MD 04/04/14 14:21 FINAL REPORT COMPARISON: None. ABDOMEN with IV contrast: Post cholecystectomy. Mild pectus excavatum deformity. Normal aortic caliber, no dissection. Post cholecystectomy intrahepatic ductal dilation. Normal portal vein, spleen, adrenal glands, pancreas and kidneys. PELVIS with IV contrast: Normal appendix. Mildly distended bladder. Intact uterus. Minimal free fluid in the lower pelvis. Ingested pills in the cecum. No small bowel obstruction. Tarlov cysts in the sacrum are suspected incompletely evaluated. IMPRESSION: 1. Normal appendix. 2. Post cholecystectomy. 3. Mildly distended bladder. 4. Tarlov cysts in the sacrum are suspected incompletely evaluated. SL: 13 BODY Chloride CSF 124 meq/L 01/29 NA FLUIDS [facility] BODY Protein CSF 23 mg/dL 15 - 45 01/29 Normal FLUIDS [facility] BODY Glucose CSF 54 mg/dL 45 - 80 01/29 Normal [facility] BODY Supernat CSF Colorless Colorless 01/29 Normal [facility] (01/29/2011 04:40:00) BODY Clarity CSF Clear Clear 01/29 Normal FLUIDS [facility] (01/29/2011 04:40:00) BODY RBC CSF 0 /mm3 0 - 0 01/29 Normal [facility] BODY WBC CSF 1 /mm3 0 - 5 01/29 Normal [facility] BODY Color CSF Colorless Colorless 01/29 Normal [facility] (01/29/2011 04:40:00) BODY Tube Num CSF 1 01/29 NA [facility] IMMUNOLOGY VDRL Scr CSF Non Reactive Non 01/29 Normal Reactive /2010 [facility] (01/29/2011 04:40:00) Microbiolo Culture: AFB 01/29 gy w/Smear /2010 [facility] Microbiolo Culture: CSF 01/29 gy w/Gram Stain /2010 [facility] Vital Signs Vital Sign Value Date Comments Source Systolic (mm Hg) 129 08/12/2017 [facility] Diastolic (mm Hg) 92 08/12/2017 [facility] Heart Rate 96 08/12/2017 [facility] Respitory Rate 18 08/12/2017 [facility] Temperature Oral (F) 97.9 F 08/12/2017 [facility] Systolic (mm Hg) 144 08/11/2017 [facility] Diastolic (mm Hg) 94 08/11/2017 [facility] Systolic (mm Hg) 139 08/11/2017 [facility] Diastolic (mm Hg) 89 08/11/2017 [facility] Respitory Rate 18 08/11/2017 [facility] Temperature Oral (F) 98.0 F 08/11/2017 [facility] Heart Rate 85 08/11/2017 [facility] Temperature Oral (F) 98.2 F 08/11/2017 [facility] Respitory Rate 18 08/11/2017 [facility] Heart Rate 87 08/11/2017 [facility] BMI Calculated 36.2 08/09/2017 [facility] Height 180.34 cm 08/09/2017 [facility] Weight 117.727 08/09/2017 [facility] Weight 68.182 08/09/2017 [facility] Height 180.34 cm 08/09/2017 [facility] BMI Calculated 20.96 08/09/2017 [facility] BMI Calculated 34.84 08/09/2017 [facility] Weight 113.295 08/09/2017 [facility] Height 180.34 cm 08/09/2017 [facility] Heart Rate 132 08/09/2017 [facility] Temperature Oral (F) 97.9 F 08/09/2017 [facility] Systolic (mm Hg) 114 08/09/2017 [facility] Diastolic (mm Hg) 80 08/09/2017 [facility] Systolic (mm Hg) 147 08/08/2017 [facility] Diastolic (mm Hg) 91 08/08/2017 [facility] Heart Rate 97 08/08/2017 [facility] Temperature Oral (F) 97.7 F 08/08/2017 [facility] Heart Rate 98 08/08/2017 [facility] Respitory Rate 16 08/08/2017 [facility] Systolic (mm Hg) 135 08/08/2017 [facility] Diastolic (mm Hg) 87 08/08/2017 [facility] Temperature Oral (F) 98.4 F 08/08/2017 [facility] Respitory Rate 14 08/07/2017 [facility] Heart Rate 94 08/07/2017 [facility] Systolic (mm Hg) 142 08/07/2017 [facility] Diastolic (mm Hg) 88 08/07/2017 [facility] Temperature Oral (F) 98.0 F 08/07/2017 [facility] Respitory Rate 16 08/07/2017 [facility] Height 180.34 cm 08/07/2017 [facility] Weight 112.983 08/07/2017 [facility] BMI Calculated 34.74 08/07/2017 [facility] Heart Rate 113 08/07/2017 [facility] Systolic (mm Hg) 130 08/07/2017 [facility] Diastolic (mm Hg) 72 08/07/2017 [facility] Temperature Oral (F) 98.3 F 08/07/2017 [facility] Respitory Rate 18 08/07/2017 [facility] Heart Rate 109 08/07/2017 [facility] Temperature Oral (F) 98.3 F 08/07/2017 [facility] Systolic (mm Hg) 129 08/07/2017 [facility] Diastolic (mm Hg) 89 08/07/2017 [facility] Height 180.34 cm 08/06/2017 [facility] Weight 110.455 08/06/2017 [facility] Systolic (mm Hg) 128 08/06/2017 [facility] Diastolic (mm Hg) 66 08/06/2017 [facility] Respitory Rate 20 08/06/2017 [facility] Temperature Oral (F) 98.4 F 08/06/2017 [facility] BMI Calculated 33.96 08/06/2017 [facility] Heart Rate 117 08/06/2017 [facility] BMI Calculated 35.08 06/17/2017 [facility] Weight 114.091 06/17/2017 [facility] Height 180.34 cm 06/17/2017 [facility] Heart Rate 101 06/17/2017 [facility] Systolic (mm Hg) 124 06/17/2017 [facility] Diastolic (mm Hg) 73 06/17/2017 [facility] Temperature Oral (F) 98.1 F 06/17/2017 [facility] Systolic (mm Hg) 118 03/31/2015 [facility] Diastolic (mm Hg) 72 03/31/2015 [facility] Temperature Oral (F) 98 F 03/31/2015 [facility] Respitory Rate 16 03/31/2015 [facility] Heart Rate 88 03/31/2015 [facility] [facility] Temperature Oral (F) 98.1 F 03/31/2015 [facility] Respitory Rate 18 03/31/2015 [facility] Heart Rate 107 03/31/2015 [facility] Systolic (mm Hg) 137 03/31/2015 [facility] Diastolic (mm Hg) 92 03/31/2015 [facility] Weight 97.727 03/31/2015 [facility] BMI Calculated 30.05 03/31/2015 [facility] Height 180.34 cm 03/31/2015 [facility] Respitory Rate 16 08/30/2014 [facility] Temperature Oral (F) 97.9 F 08/30/2014 [facility] Heart Rate 94 08/30/2014 [facility] Systolic (mm Hg) 107 08/30/2014 [facility] Diastolic (mm Hg) 73 08/30/2014 [facility] Heart Rate 82 08/30/2014 [facility] Temperature Oral (F) 97.4 F 08/30/2014 [facility] Respitory Rate 18 08/30/2014 [facility] Systolic (mm Hg) 99 08/30/2014 [facility] Diastolic (mm Hg) 68 08/30/2014 [facility] Respitory Rate 17 08/30/2014 [facility] Systolic (mm Hg) 106 08/30/2014 [facility] Diastolic (mm Hg) 71 08/30/2014 [facility] Heart Rate 78 08/30/2014 [facility] Temperature Oral (F) 97.9 F 08/30/2014 [facility] Height 180.34 cm 08/27/2014 [facility] Weight 86 08/27/2014 [facility] BMI Calculated 26.44 08/27/2014 [facility] Weight 88.636 08/26/2014 [facility] Height 71 08/15/2014 [facility] Weight 196 08/15/2014 [facility] Temperature Oral (F) 98.4 F 08/15/2014 [facility] Heart Rate 83 08/15/2014 [facility] Systolic (mm Hg) 127 08/15/2014 [facility] Diastolic (mm Hg) 80 08/15/2014 [facility] Heart Rate 85 08/10/2014 [facility] Temperature Oral (F) 98.2 F 08/10/2014 [facility] Respitory Rate 16 08/10/2014 [facility] Systolic (mm Hg) 93 08/10/2014 [facility] Diastolic (mm Hg) 59 08/10/2014 [facility] Systolic (mm Hg) 94 08/10/2014 [facility] Diastolic (mm Hg) 60 08/10/2014 [facility] Temperature Oral (F) 98.1 F 08/10/2014 [facility] Heart Rate 86 08/10/2014 [facility] Respitory Rate 16 08/10/2014 [facility] Heart Rate 80 08/10/2014 [facility] Systolic (mm Hg) 100 08/10/2014 [facility] Diastolic (mm Hg) 54 08/10/2014 [facility] Respitory Rate 16 08/10/2014 [facility] Temperature Oral (F) 98.2 F 08/10/2014 [facility] BMI Calculated 26.42 08/05/2014 [facility] Weight 85.909 08/05/2014 [facility] Height 180.34 cm 08/05/2014 [facility] Temperature Oral (F) 98.0 F 04/04/2014 [facility] Systolic (mm Hg) 133 04/04/2014 [facility] Diastolic (mm Hg) 85 04/04/2014 [facility] Respitory Rate 18 04/04/2014 [facility] Heart Rate 86 04/04/2014 [facility] Systolic (mm Hg) 135 04/04/2014 [facility] Diastolic (mm Hg) 80 04/04/2014 [facility] Respitory Rate 16 04/04/2014 [facility] Heart Rate 85 04/04/2014 [facility] Temperature Oral (F) 98.4 F 04/04/2014 [facility] Heart Rate 83 04/04/2014 [facility] Respitory Rate 18 04/04/2014 [facility] Systolic (mm Hg) 138 04/04/2014 [facility] Diastolic (mm Hg) 97 04/04/2014 [facility] Height 180.34 cm 04/04/2014 [facility] Weight 84.091 04/04/2014 [facility] BMI Calculated 25.86 04/04/2014 [facility] Height 180.34 cm 01/29/2011 [facility] Weight 80.455 01/29/2011 [facility] Encounters Location Location Encounter Encounter Reason Attending ADM DC Status Source Details Type Number For Provider Date Date Visit Emergency [id number] DR SAMMIE SPENCER 01/08 01/08 Active [facility] 1 BARNARD /2010 [facility] [id number] MS CORRALES 01/29 Active [facility] [id number] Mario 04/04 04/04 [facility] 4 [facility] Inpatient [id number] Jacek 08/05 08/10 [facility] 5 [facility] Outpatient [id number] LORENE DIEUDONNE 08/07 [facility] Office [id number] Lorene Dieudonne, 08/15 08/15 [id number] [address] [place] [address] Inpatient [id number] Jacek 08/26 08/30 [facility] 6 [facility] [place] [id number] Amor Wrenf 03/31 03/31 [facility] Outpatient [id number] SEAN DIOR 04/09 [facility] Outpt Diag [id number] Sean Dior 04/16 04/17 [facility] Phone [id number] 06/08 06/10 [facility] Outpatient [id number] CHACE SHI 06/17 [facility] Sp[facility] Outpatient [id number] Sean Dior 06/17 06/18 [facility] Phone [id number] 06/22 06/24 [facility] Message Neuro [facility] Sp[facility] Phone [id number] 06/22 06/24 [facility] Message Neuro [facility] Sp[facility] Phone [id number] 07/21 07/23 [facility] Message Neuro [facility] Sp[facility] Phone [id number] 08/01 08/03 [facility] Sp[facility] Phone [id number] 08/03 08/05 [facility] Neuro [facility] Phone [id number] 08/05 08/07 [facility] Spine Phone [id number] 08/05 08/07 [facility] [id number] Pat 08/06 08/07 [facility] Observation [id number] Gen[place] 08/07 08/08 [facility] 2 [facility] Spine Phone [id number] 08/08 08/10 [facility] Message Neuro [facility] Phone [id number] 08/08 08/10 [facility] Outpatient [id number] CHACE SHI 08/09 [facility] Outpatient [id number] Sean Dior 08/09 08/10 [facility] Observation [id number] Esperanza 08/09 08/12 [facility] [address] [facility] Spine Phone [id number] 08/12 08/14 [facility] Message Neuro [facility] Spine Phone [id number] 08/15 08/17 [facility] Message Neuro Outpatient [id number] CHACE SHI 08/16 Active [facility] Spine Ambulatory [id number] Sean Dior 08/16 08/16 [facility] Neuro Outpatient [id number] CHACE SHI 09/23 Active [facility] Outpatient [id number] CHACE SHI 09/30 Active [facility] Outpatient [id number] CHACE YURIDIA 11/30 Active [facility] Outpatient [id number] CHACE SHI 01/03 Active [facility] Outpatient [id number] CHACE NEYCATHERINE 03/08 Active [facility] Procedures Procedure Code Date Perfomer Comments Source Spinal puncture, [address] [facility] lumbar, [address] Spinal operation [id number] [facility] 5 Spinal operation [id number] [facility]inal operation [id number] [facility] 5 Spinal operation [id number] [facility] Spinal operation [id number] [address] Appendectomy [id number] [facility] Cholecystectomy [id number] [facility] Thyroidectomy [id number] [facility] Appendectomy [id number] [facility] Cholecystectomy [id number] [facility] Thyroidectomy [id number] [facility] Cholecystectomy [id number] [facility] Thyroidectomy [id number] [facility] Appendectomy [id number] [facility] section [id number] [facility] Hysterectomy [id number] [facility] Appendectomy [id number] [facility] section [id number] [facility] Cholecystectomy [id number] [facility] Hysterectomy [id number] [facility] Thyroidectomy [id number] [facility] section [id number] [facility] Hysterectomy [id number] [facility] Appendectomy [id number] [facility] section [id number] [facility] Cholecystectomy [id number] [facility] Hysterectomy [id number] [facility] Thyroidectomy [id number] [facility]
--- OUTSIDE RECORDS SUMMARY | 2018-01-10 09:23 | XMS REPORT | CCD ---
:1980 Author Organization [facility] Care Team Providers Name Role Phone Al Bliss III Referring Provider Allergies, Adverse Reactions, Alerts Substance Reaction Status sulfa drugs Active Vital Signs Most recent to oldest [Reference Range]: 1 Height 180.34 cm (01/29/2011 08:52:00) Weight 80.455 kg (01/29/2011 08:52:00) Results BODY FLUIDS Most recent to oldest [Reference Range]: 1 Glucose CSF [45-80 mg/dL] 54 mg/dL (01/29/2011 04:40:00) Protein CSF [15-45 mg/dL] 23 mg/dL (01/29/2011 04:40:00) Chloride CSF 124 mEq/L *NA* (01/29/2011 04:40:00) Tube Num CSF 1 *NA* (01/29/2011 04:40:00) Color CSF [Colorless] Colorless (01/29/2011 04:40:00) Clarity CSF [Clear] Clear (01/29/2011 04:40:00) Supernat CSF [Colorless] Colorless (01/29/2011 04:40:00) RBC CSF [0-0 /mm3] 0 /mm3 (01/29/2011 04:40:00) WBC CSF [0-5 /mm3] 1 /mm3 (01/29/2011 04:40:00) IMMUNOLOGY Most recent to oldest [Reference Range]: 1 VDRL Scr CSF [Non Reactive] Non Reactive (01/29/2011 04:40:00) Microbiology Reports PROCEDURE:Culture: AFB w/Smear STATUS: In Progress BODY SITE: COLLECTED DATE/TIME: 01/29/2011 04:40:00 SOURCE: CSF FREE TEXT SOURCE: PRELIMINARY REPORTS Preliminary ReportCulture In ProgressSTAIN REPORTS Stain ReportNo Acid Fast Bacilli Seen On Smear PROCEDURE: Culture: CSF w/Gram Stain STATUS: In Progress BODY SITE: COLLECTED DATE/TIME: 01/29/2011 04:40:00 SOURCE: CSF FREE TEXT SOURCE: PRELIMINARY REPORTS Preliminary ReportNo Growth; HoldingSTAIN REPORTS Stain ReportNo Wbc'S Or Organisms Seen PROCEDURE:Culture: Fungal CSF w/Melly Ink STATUS: In Progress BODY SITE: COLLECTED DATE/TIME: 01/29/2011 04:40:00 SOURCE: CSF FREE TEXT SOURCE: STAIN REPORTS Stain ReportNo Encapsulated Budding Yeast Seen
--- OUTSIDE RECORDS SUMMARY | 2018-01-10 09:25 | XMS REPORT | Continuity of Care Document ---
:1980 Author Organization [facility] Care Team Providers Name Role Phone MD Lund Hoang Unavailable Unavailable Insurance Providers Payer name Policy type / Coverage Policy ID Covered republican ID Policy Williamson type AET[employer] - CHOICE (POS II) AET[employer] - CHOICE (POS II) Encounters Encounter Performer Location Date Office Visit Terry Lund MD [facility] General Aug 15, 2014 Surgery 350 Allergies, Adverse Reactions, Alerts Type Substance Reaction Status Drug allergy SULFA hives Active Problems Problem Effective Dates Problem Status ABDOMINAL PAIN, RIGHT LOWER QUADRANT Aug 15, 2014 Active Procedures Date Description Comments Aug 15, 2014 smoking status Never smoker Medications Medication Instructions Start Date Status SYNTHROID 112 MCG TABS Aug 15, 2014 Active XARELTO TABS Aug 15, 2014 Active Vital Signs Date Description Test Result Aug 15, 2014 height E&M - 8302-2 HEIGHT 71 in Aug 15, 2014 weight E&M - 3141-9 WEIGHT 196 lb Aug 15, 2014 temperature E&M TEMPERATURE 98.4 deg f Aug 15, 2014 pulse rate E&M - 8867-4 PULSE RATE 83 /min Aug 15, 2014 blood pressure, systolic - 8480-6 BP SYSTOLIC 127 mm Hg Aug 15, 2014 blood pressure, diastolic - 8462-4 BP DIASTOLIC 80 mm Hg
--- OUTSIDE RECORDS SUMMARY | 2018-01-10 09:25 | XMS REPORT ---
:1980 [facility] [address] [place] [address] [place] [id number] Care Team Providers Name Role Phone Unavailable [...]
[2018-01-10] MEDS ORDERED: MORPHINE 4 MG/ML SYR ONE (09:48)
--- NOTE | 2018-01-10 10:54 | ER ---
Nurse's Notes [facility] Name: Luis Felipe Nova Age: 37 yrs Sex: Female : 1980 Arrival Date: 01/10/2018 Time: 08:27 Bed 14 Private MD: Diagnosis: Abdominal and pelvic pain;Flank Pain Presentation: 01/10 08:28 Presenting complaint: Patient states: right flank pain started Tuesday and the pain sv has now started radiated to the RLQ. Pt was seen at PCP and had some blood in urine. c/o nausea. Transition of care: patient was not received from another setting of care. Onset of symptoms was January 07, 2018. Care prior to arrival: None. 08:28 Method Of Arrival: Ambulatory sv 08:28 Acuity: BRIANNA 3 sv 09:09 Risk Assessment: Do you want to hurt yourself or someone else? Patient reports no jl7 desire to harm self or others. Initial Sepsis Screen: Does the patient meet any 2 criteria? No. Patient's initial sepsis screen is negative. Does the patient have a suspected source of infection? No. Patient's initial sepsis screen is negative. Triage Assessment: 09:09 General: Appears in no apparent distress. 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 - Social history:: Smoking status: Patient/guardian denies using tobacco. - Ebola Screening: : No symptoms or risks identified at this time. Screenin:08 Abuse screen: Denies threats or abuse. Denies injuries from another. Nutritional jl7 screening: No deficits noted. Tuberculosis screening: No symptoms or risk factors identified. Fall Risk IV access (20 points). Assessment: 08:45 General: Appears in no apparent distress. uncomfortable, Behavior is calm, cooperative, jl7 appropriate for age. Pain: Complains of pain in right flank Pain radiates to right lower quadrant Pain currently is 7 out of 10 on a pain scale. at worst was 10 out of 10 on a pain scale. Pain began 2-3 days ago. Is intermittent. Neuro: Level of Consciousness is awake, alert, obeys commands, Oriented to person, place, time, situation. Cardiovascular: Patient's skin is warm and dry. Respiratory: Airway is patent Respiratory effort is even, unlabored, Respiratory pattern is regular, symmetrical. GI: Abdomen is round non-distended, Bowel sounds present X 4 quads. Abd is soft and non tender X 4 quads. Reports nausea, Patient currently denies diarrhea, vomiting. : Reports pain in right flank(s), Denies burning with urination, pain with urination. Derm: Skin is pink, warm \\T\\ dry. 09:30 Reassessment: Pt reports continued nausea and pain, ERP notified see MAR for orders. jl7 09:40 Reassessment: ERP at bedside discussing plan of care. jl7 10:03 Reassessment: Pt reports decreased pain and nausea, ERP notified at this time. jl7 10:30 Reassessment: ERP at bedside discussing plan of care. jl7 Vital Signs: 08:30 BP 148 / 83; Pulse 90; Resp 20; Temp 97.9; Pulse Ox 100% ; Weight 106.59 kg; Height 5 sv ft. 11 in. (180.34 cm); Pain 7/10; 09:00 BP 124 / 60; Pulse 77; Resp 16; Pulse Ox 96% ; Pain 7/10; jl7 09:30 BP 112 / 70; Pulse 76; Resp 16 S; Pulse Ox 96% on R/A; Pain 7/10; jl7 10:03 BP 119 / 68; Pulse 80; Resp 16; Pulse Ox 97% ; Pain 2/10; jl7 11:16 BP 120 / 75; Pulse 76; Resp 16; Pulse Ox 98% on R/A; Pain 2/10; jl7 08:30 Body Mass Index 32.78 (106.59 kg, 180.34 cm) sv ED Course: 08:27 Patient arrived in ED. tw3 08:29 Triage completed. sv 08:30 Arm band placed on. sv 08:31 Bryan Griffiths PA is PHCP. jr8 08:31 Sundeep Galvan MD is Attending Physician. jr8 08:31 Paz, Jahala, RN is Primary Nurse. jl7 09:06 CT completed. Patient tolerated procedure well. Patient moved to CT via wheelchair. Patient moved back from CT. 09:06 CT Stone Protocol In Process Unspecified. EDMS 09:08 Patient has correct armband on for positive identification. Placed in gown. Bed in low jl7 position. Call light in reach. Side rails up X 1. Pulse ox on. NIBP on. Warm blanket given. 09:08 Initial lab(s) drawn, by me, sent to lab. Urine collected: clean catch specimen, clear. jl7 Inserted saline lock: 20 gauge in left antecubital area, using aseptic technique. Blood collected. 11:16 No provider procedures requiring assistance completed. IV discontinued, intact, jl7 bleeding controlled, No redness/swelling at site. Pressure dressing applied. Administered Medications: 08:59 Drug: Zofran 4 mg Route: IVP; Site: left antecubital; jl7 09:30 Follow up: Response: No adverse reaction; Pain is unchanged, physician notified jl7 09:03 Drug: TORadol 30 mg Route: IVP; Site: left antecubital; jl7 09:30 Follow up: Response: No adverse reaction; Pain is unchanged, physician notified jl7 09:43 Drug: Zofran 4 mg Route: IVP; Site: left antecubital; jl7 10:10 Follow up: Response: No adverse reaction; Nausea is decreased jl7 09:46 Drug: morphine 4 mg Route: IVP; Site: left antecubital; jl7 10:10 Follow up: Response: No adverse reaction; Pain is decreased jl7 Outcome: 10:53 Discharge ordered by . adam 11:16 Discharged to home ambulatory. jl7 11:16 Condition: stable 11:16 Discharge instructions given to patient, Instructed on discharge instructions, follow up and referral plans. medication usage, Demonstrated understanding of instructions, follow-up care, medications, Prescriptions given X 2. 11:17 Patient left the ED. jl7 Signatures: Dispatcher [employer] EDJennifer Bush, RN Soila Aponte Josh, PA PA jrRenee Limon RN RN jl7 Alfredo, Maria Luisa tw3
--- NOTE | 2018-01-10 10:54 | EDPHYS ---
Physician Documentation [facility] Name: Luis Felipe Nova Age: 37 yrs Sex: Female : 1980 Arrival Date: 01/10/2018 Time: 08:27 Bed 14 Private MD: ED Physician Sundeep Galvan HPI: 01/10 10:21 This 37 yrs old Female presents to ER via Ambulatory with complaints of jr8 Abdominal Pain, Flank Pain. 10:21 Onset: The symptoms/episode began/occurred acutely, yesterday. The symptoms do not jr8 radiate. Associated signs and symptoms: Pertinent positives: nausea and vomiting. The symptoms are described as crampy, waxing/waning. Modifying factors: The symptoms are alleviated by nothing, the symptoms are aggravated by nothing. Severity of pain: At its worst the pain was moderate in the emergency department the pain is unchanged. The patient has not experienced similar symptoms in the past. The patient has not recently seen a physician. saw PCP the other day for this and had US done with negative results. Pain worsened so came to ED for further evaluation . 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 - Social history:: Smoking status: Patient/guardian denies using tobacco. - Ebola Screening: : No symptoms or risks identified at this time. ROS: 10:21 Eyes: Negative for injury, pain, redness, and discharge, ENT: Negative for injury, jr8 pain, and discharge, Neck: Negative for injury, pain, and swelling, Cardiovascular: Negative for chest pain, palpitations, and edema, Respiratory: Negative for shortness of breath, cough, wheezing, and pleuritic chest pain, MS/Extremity: Negative for injury and deformity, Skin: Negative for injury, rash, and discoloration, Neuro: Negative for headache, weakness, numbness, tingling, and seizure. 10:21 Abdomen/GI: Positive for abdominal pain, nausea and vomiting, Negative for diarrhea, constipation, abdominal distension, anorexia, dysphagia, hematemesis, black/tarry stool, rectal pain, rectal bleeding, bowel incontinence, flatulence. 10:21 Back: Positive for pain at rest, flank pain, on the right. Exam: 10:21 Eyes: Pupils equal round and reactive to light, extra-ocular motions intact. Lids and jr8 lashes normal. Conjunctiva and sclera are non-icteric and not injected. Cornea within normal limits. Periorbital areas with no swelling, redness, or edema. ENT: Nares patent. No nasal discharge, no septal abnormalities noted. Tympanic membranes are normal and external auditory canals are clear. Oropharynx with no redness, swelling, or masses, exudates, or evidence of obstruction, uvula midline. Mucous membranes moist. Neck: Trachea midline, no thyromegaly or masses palpated, and no cervical lymphadenopathy. Supple, full range of motion without nuchal rigidity, or vertebral point tenderness. No Meningismus. Cardiovascular: Regular rate and rhythm with a normal S1 and S2. No gallops, murmurs, or rubs. Normal PMI, no JVD. No pulse deficits. Respiratory: Lungs have equal breath sounds bilaterally, clear to auscultation and percussion. No rales, rhonchi or wheezes noted. No increased work of breathing, no retractions or nasal flaring. Abdomen/GI: Soft, non-tender, with normal bowel sounds. No distension or tympany. No guarding or rebound. No evidence of tenderness throughout. Back: No spinal tenderness. No costovertebral tenderness. Full range of motion. Skin: Warm, dry with normal turgor. Normal color with no rashes, no lesions, and no evidence of cellulitis. MS/ Extremity: Pulses equal, no cyanosis. Neurovascular intact. Full, normal range of motion. Neuro: Awake and alert, GCS 15, oriented to person, place, time, and situation. Cranial nerves II-XII grossly intact. Motor strength 5/5 in all extremities. Sensory grossly intact. Cerebellar exam normal. Normal gait. Vital Signs: 08:30 BP 148 / 83; Pulse 90; Resp 20; Temp 97.9; Pulse Ox 100% ; Weight 106.59 kg; Height 5 sv ft. 11 in. (180.34 cm); Pain 7/10; 09:00 BP 124 / 60; Pulse 77; Resp 16; Pulse Ox 96% ; Pain 7/10; jl7 09:30 BP 112 / 70; Pulse 76; Resp 16 S; Pulse Ox 96% on R/A; Pain 7/10; jl7 10:03 BP 119 / 68; Pulse 80; Resp 16; Pulse Ox 97% ; Pain 2/10; jl7 11:16 BP 120 / 75; Pulse 76; Resp 16; Pulse Ox 98% on R/A; Pain 2/10; jl7 08:30 Body Mass Index 32.78 (106.59 kg, 180.34 cm) sv MDM: 08:31 Patient medically screened. jr8 10:52 Differential diagnosis: bowel obstruction, diverticulitis, Herpes Zoster, non-specific jr8 abd pain, Peritonitis, Pelvic Inflammatory Disease, Pyelonephritis, Ureterolithiasis, urinary tract infection, muscle spasm. Data reviewed: vital signs, nurses notes, lab test result(s), radiologic studies, CT scan. Data interpreted: Pulse oximetry: on room air is 97 %. Interpretation: normal. Counseling: I had a detailed discussion with the patient and/or guardian regarding: the historical points, exam findings, and any diagnostic results supporting the discharge/admit diagnosis, lab results, radiology results, the need for outpatient follow up, a family practitioner, to return to the emergency department if symptoms worsen or persist or if there are any questions or concerns that arise at home. Response to treatment: the patient's symptoms have markedly improved after treatment. 01/10 08:44 Order name: Basic Metabolic Panel; Complete Time: 09:36 01/10 08:44 Order name: CBC with Diff; Complete Time: 09:36 01/10 08:44 Order name: Creatinine for Radiology; Complete Time: 09:36 01/10 08:44 Order name: Hepatic Function; Complete Time: 09:36 01/10 08:44 Order name: Lipase; Complete Time: 09:36 01/10 08:59 Order name: Urine Dipstick--Ancillary (enter results) eb 01/10 08:44 Order name: IV Saline Lock; Complete Time: 08:56 01/10 08:44 Order name: Labs collected and sent; Complete Time: 08:56 01/10 08:44 Order name: CT Stone Protocol; Complete Time: 09:36 jr8 Administered Medications: 08:59 Drug: Zofran 4 mg Route: IVP; Site: left antecubital; jl7 09:30 Follow up: Response: No adverse reaction; Pain is unchanged, physician notified jl7 09:03 Drug: TORadol 30 mg Route: IVP; Site: left antecubital; jl7 09:30 Follow up: Response: No adverse reaction; Pain is unchanged, physician notified jl7 09:43 Drug: Zofran 4 mg Route: IVP; Site: left antecubital; jl7 10:10 Follow up: Response: No adverse reaction; Nausea is decreased jl7 09:46 Drug: morphine 4 mg Route: IVP; Site: left antecubital; jl7 10:10 Follow up: Response: No adverse reaction; Pain is decreased jl7 Disposition: 16:18 Co-signature as Attending Physician, Sundeep Galvan MD I agree with the assessment and guero plan of care. Disposition: 01/10/18 10:53 Discharged to Home. Impression: Abdominal and pelvic pain, Flank Pain. - Condition is Stable. - Discharge Instructions: Abdominal Pain, Adult. - Prescriptions for Tylenol- Codeine #3 300-30 mg Oral Tablet - take 2 tablets by ORAL route every 6 hours As needed; 20 tablet. Zofran 4 mg Oral Tablet - take 1 tablet by ORAL route every 12 hours As needed; 20 tablet. - Medication Reconciliation Form, Thank You Letter, Antibiotic Education, Prescription Opioid Use form. - Follow up: Private Physician; When: 2 - 3 days; Reason: Recheck today's complaints, Continuance of care, Re-evaluation by your physician. - Problem is new. - Symptoms have improved. Signatures: Dispatcher [employer] Jennifer Hanson RN RN sv Anderson, Corey, MD MD cha Roszak, Josh, PA PA jr8 Renee Paz RN RN jl7 Corrections: (The following items were deleted from the chart) 10:54 10:53 01/10/2018 10:53 Discharged to Home. Impression: Abdominal and pelvic pain. jr8 Condition is Stable. Forms are Medication Reconciliation Form, Thank You Letter, Antibiotic Education, Prescription Opioid Use. Follow up: Private Physician; When: 2 - 3 days; Reason: Recheck today's complaints, Continuance of care, Re-evaluation by your physician. Problem is new. Symptoms have improved. jr8 11:17 10:54 01/10/2018 10:53 Discharged to Home. Impression: Abdominal and pelvic pain; Flank jl7 Pain. Condition is Stable. Forms are Medication Reconciliation Form, Thank You Letter, Antibiotic Education, Prescription Opioid Use. Follow up: Private Physician; When: 2 - 3 days; Reason: Recheck today's complaints, Continuance of care, Re-evaluation by your physician. Problem is new. Symptoms have improved. jr8
[2018-01-10 11:21] VITALS: TEMP 97.9
[2018-01-10 11:28] VITALS: BP 120/75; O2SAT 98
[2018-01-10 11:34] LABS: Urine Blood NEGATIVE (NEG); Urine Glucose NEGATIVE (NEG); Urine Protein NEGATIVE (NEG)
== END 2018-01-10 11:17 | disposition home or self-care (01) ==
LOC: ER 08:24
DX: R10.9 Unspecified abdominal pain (principal); R10.2 Pelvic and perineal pain
CPT/HCPCS: 36415; 74176; 76377; 80048; 80076; 81003; 83690; 85025; 96374; 96375; 99284; J2405; J7030

== ENCOUNTER 2018-01-12 10:47 | Emergency (ER) | payer OTHER ==
--- OUTSIDE RECORDS SUMMARY | 2018-01-12 10:50 | XMS REPORT | Clinical Summary ---
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 COMPREHENSIVE METABOLIC Routine 04/14/2017 11:23 Generalized Results for this PANEL AM ESE 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 CBC HEMOGRAM Routine 04/14/2017 11:23 Generalized 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 TISSUE TRANSGLUTAMINASE Routine 03/16/2017 9:07 Results for this AB, IGG AM ESE TEACHER procedure are in the results section. TEST AUTHORIZATION Routine 03/16/2017 9:07 Results for this AM ESE TEACHER procedure are in the results section. CELIAC DISEASE PANEL Routine 03/16/2017 9:07 Results for this AM ESE TEACHER procedure are in the results section. VITAMIN D 25 HYDROXY Routine 03/16/2017 9:07 Vitamin D deficiency Results for this LEVEL AM ESE TEACHER procedure are in the results section. VITAMIN B12 LEVEL Routine 03/16/2017 9:07 Myalgia Results for this AM ESE TEACHER procedure are in the results section. URINALYSIS, AUTOMATED Routine 03/16/2017 9:07 Encounter for Results for this WITH MICROSCOPY AM ESE TEACHER long-term (current) procedure are in use of NSAIDs the results section. MAYI-1 ANTIBODY Routine 03/16/2017 9:07 Positive LISY Results for this AM ESE TEACHER (antinuclear procedure are in antibody) the results section. SS-B ANTIBODY Routine 03/16/2017 9:07 Positive LISY Results for this AM ESE TEACHER (antinuclear procedure are in antibody) the results section. SS-A ANTIBODY Routine 03/16/2017 9:07 Positive LISY Results for this AM ESE TEACHER (antinuclear procedure are in antibody) the results section. COMPLEMENT ACTIVITY, Routine 03/16/2017 9:07 Positive LISY Results for this TOTAL AM ESE TEACHER (antinuclear procedure are in antibody) the results section. C4 COMPLEMENT COMPONENT Routine 03/16/2017 9:07 Positive LISY Results for this AM ESE TEACHER (antinuclear procedure are in antibody) the results section. C3 COMPLEMENT COMPONENT Routine 03/16/2017 9:07 Positive LISY Results for this AM ESE TEACHER (antinuclear procedure are in antibody) the results section. LISY SCREEN W IFA W Routine 03/16/2017 9:07 Positive LISY Results for this REFLEX TO TITER AM ESE TEACHER (antinuclear procedure are in antibody) the results section. MAGNESIUM LEVEL Routine 03/16/2017 9:07 Hypocalcemia Results for this AM ESE TEACHER procedure are in the results section. PARATHYROID HORMONE Routine 03/16/2017 9:07 Hypocalcemia Results for this AM ESE TEACHER procedure are in the results section. ACETYLCHOLINE RECEPTOR Routine 03/16/2017 9:07 Myalgia Results for this BINDING AB AM ESE TEACHER procedure are in the results section. ANGIOTENSIN CONVERTING Routine 03/16/2017 9:07 Myalgia Results for this ENZYME AM ESE TEACHER procedure are in the results section. IONIZED CALCIUM Routine 03/16/2017 9:07 Hypocalcemia Results for this AM ESE TEACHER procedure are in the results section. COMPREHENSIVE METABOLIC Routine 03/16/2017 9:07 Encounter for Results for this PANEL AM ESE TEACHER long-term (current) procedure are in use of NSAIDs the results section. HEMOGLOBIN A1C Routine 03/16/2017 9:07 longterm current Results for this AM ESE TEACHER use of systemic procedure are in steroids the results section. CREATINE KINASE, TOTAL Routine 03/16/2017 9:07 Myalgia Results for this (CPK) AM ESE TEACHER procedure are in the results section. C-REACTIVE PROTEIN Routine 03/16/2017 9:07 Positive LISY Results for this AM ESE TEACHER (antinuclear procedure are in antibody) the results section. ALDOLASE, SERUM Routine 03/16/2017 9:07 Myalgia Results for this AM ESE TEACHER procedure are in the results section. SURGICAL PATHOLOGY Routine 03/11/2017 4:43 Results for this REQUEST PM ESE TEACHER procedure are in the results section. MRI ABDOMEN W WO Routine 03/02/2017 8:20 Abnormal ultrasound Results for this CONTRAST AM ESE TEACHER of liver procedure are in the results section. LIPASE LEVEL Routine 02/24/2017 1:15 Epigastric pain Results for this PM ESE TEACHER procedure are in the results section. AMYLASE LEVEL Routine 02/24/2017 1:15 Epigastric pain Results for this PM ESE TEACHER procedure are in the results section. CBC WITH PLATELET AND Routine 02/24/2017 1:15 Iron deficiency Results for this DIFFERENTIAL PM ESE TEACHER anemia due to procedure are in chronic blood loss the results section. TOTAL IRON BINDING Routine 02/24/2017 1:15 Iron deficiency Results for this CAPACITY PM ESE TEACHER anemia due to procedure are in chronic blood loss the results section. RETICULOCYTE COUNT, Routine 02/24/2017 1:15 Iron deficiency Results for this AUTOMATED PM ESE TEACHER anemia due to procedure are in chronic blood loss the results section. FERRITIN LEVEL Routine 02/24/2017 1:15 Iron deficiency Results for this PM ESE TEACHER anemia due to procedure are in chronic blood loss the results section. after 01/11/2017 Results MRI Brain Wo Contrast (05/25/2017 4:31 PM CDT) Narrative Performed At EXAMINATION:MRI BRAIN WO CONTRAST [facility] CLINICAL HISTORY:speech change COMPARISON:May 17, 2017 Findings: No intracranial hemorrhage, acute ischemia, extra-axial fluid collections or parenchymal mass lesions. No hydrocephalus. No suspicious focal bone marrow lesions. Major flow voids are maintained. IMPRESSION: No acute intracranial abnormalities or mass lesions. [facility]-[id number] Procedure Note Interface, Radiology Results Incoming - 05/25/2017 4:52 PM CDT EXAMINATION: MRI BRAIN WO CONTRAST CLINICAL HISTORY: speech change COMPARISON: May 17, 2017 Findings: No intracranial hemorrhage, acute ischemia, extra-axial fluid collections or parenchymal mass lesions. No hydrocephalus. No suspicious focal bone marrow lesions. Major flow voids are maintained. IMPRESSION: No acute intracranial abnormalities or mass lesions. [facility]-[id number] Performing Organization Address City/State/Zipcode Phone Number [facility] [address] [facility] [address] Partial thromboplastin time, activated (05/25/2017 3:00 PM CDT) PTT 28.3 23.0 - 36.0 sec [facility] DEPARTMENT OF PATHOLOGY Comment: AND GENOMIC MEDICINE PTT therapeutic range for unfractionated heparin is 61.0-112.0 seconds which corresponds to Anti-Xa 0.3-0.7 U/ml. Specimen Blood Performing Organization Address City/[facility]/Zipcode Phone Number [facility] PATHOLOGY AND [address] [place], [place] [id number] [facility] Prothrombin time with INR (05/25/2017 3:00 PM CDT) Prothrombin time 13.3 12.0 - 15.0 sec [facility] DEPARTMENT OF PATHOLOGY AND GENOMIC MEDICINE INR 1.0 [facility] DEPARTMENT OF Comment: PATHOLOGY AND GENOMIC The International Normalized Ratio (INR) is a therapeutic MEDICINE monitoring tool for patients who are stable on oral anticoagulant therapy. An INR of 2.0-3.0 is suggested for deep vein thrombosis/pulmonary embolism. Specimen Blood Performing Organization Address [facility]ode Phone Number [facility] PATHOLOGY AND [address] [place], [place] [id number] [facility] CBC with platelet and differential (05/25/2017 3:00 PM CDT)Only the most recent of10 resultswithin the time period is included. WBC 8.10 4.50 - 11.00 k/uL [facility] DEPARTMENT OF PATHOLOGY AND GENOMIC MEDICINE RBC 3.79 (L) 4.20 - 5.50 m/uL [facility] DEPARTMENT OF PATHOLOGY AND GENOMIC MEDICINE HGB 11.2 (L) 12.0 - 16.0 g/dL [facility] DEPARTMENT OF PATHOLOGY AND GENOMIC MEDICINE HCT 35.0 (L) 37.0 - 47.0 % [facility] DEPARTMENT OF PATHOLOGY AND GENOMIC MEDICINE MCV 92.3 82.0 - 100.0 fL [facility] DEPARTMENT OF PATHOLOGY AND GENOMIC MEDICINE MCH 29.6 27.0 - 34.0 pg [facility] DEPARTMENT OF PATHOLOGY AND GENOMIC MEDICINE MCHC 32.0 31.0 - 37.0 g/dL [facility] DEPARTMENT OF PATHOLOGY AND GENOMIC MEDICINE RDW - SD 47.0 37.0 - 55.0 fL [facility] DEPARTMENT OF PATHOLOGY AND GENOMIC MEDICINE MPV 10.4 8.8 - 13.2 fL [facility] DEPARTMENT OF PATHOLOGY AND GENOMIC MEDICINE Platelet count 243 150 - 400 k/uL [facility] DEPARTMENT OF PATHOLOGY AND GENOMIC MEDICINE Nucleated RBC 0.00 /100 WBC [facility] DEPARTMENT OF PATHOLOGY AND GENOMIC MEDICINE Neutrophils 55.2 39.0 - 69.0 % [facility] DEPARTMENT OF PATHOLOGY AND GENOMIC MEDICINE Lymphocytes 34.3 25.0 - 45.0 % [facility] DEPARTMENT OF PATHOLOGY AND GENOMIC MEDICINE Monocytes 8.4 0.0 - 10.0 % [facility] DEPARTMENT OF PATHOLOGY AND GENOMIC MEDICINE Eosinophils 1.1 0.0 - 5.0 % [facility] DEPARTMENT OF PATHOLOGY AND GENOMIC MEDICINE Basophils 0.6 0.0 - 1.0 % [facility] DEPARTMENT OF PATHOLOGY AND GENOMIC MEDICINE Immature granulocytes 0.4Comment: 0.0 - 1.0 % [facility] DEPARTMENT OF "Immature PATHOLOGY AND GENOMIC granulocytes" MEDICINE (promyelocytes, myelocytes, metamyelocytes) Specimen Blood Performing Organization Address City/[facility] Phone Number [facility] DEPARTMENT OF PATHOLOGY AND [address] [place] [address] Estimated GFR (05/25/2017 2:45 PM CDT)Only the most recent of9 resultswithin the time period is included. GFR Non Af Amer 81 mL/min/1.73 m2 [facility] DEPARTMENT OF PATHOLOGY AND GENOMIC MEDICINE GFR Af Amer >90 mL/min/1.73 m2 [facility] DEPARTMENT OF Comment: PATHOLOGY AND GENOMIC Chronic [...] Americans. Specimen Plasma specimen Performing Organization Address [facility] Centercode Phone Number [facility] DEPARTMENT OF PATHOLOGY AND [address] [place] [address] Troponin (05/25/2017 2:45 PM CDT) Troponin <0.30 0.00 - 0.30 ng/mL [facility] DEPARTMENT OF PATHOLOGY Comment: AND GENOMIC MEDICINE 0.30 - 1.49 ng/mlMay indicate increased risk of acute coronary syndrome. >=1.5 ng/mlConsistent with acute myocardial infarction. The diagnostic value of a single normal or non-diagnostic result is questionable.Serial samples at 2-6 hour intervals are required to rule out acute myocardial injury. Specimen Plasma specimen Performing Organization Address City/[facility]/Zipcode Phone Number [facility] DEPARTMENT OF PATHOLOGY AND [address] [place] [address] GENOMIC MEDICINE Magnesium level (05/25/2017 2:45 PM CDT)Only the most recent of4 resultswithin the time period is included. Magnesium 1.9 1.6 - 2.6 mg/dL [facility] DEPARTMENT OF PATHOLOGY AND GENOMIC MEDICINE Specimen Plasma specimen Performing Organization Address City/[facility] Cent[facility]ode Phone Number [facility] DEPARTMENT OF PATHOLOGY AND [address] [place] [address] MEDICINE Lactic acid level (05/25/2017 2:45 PM CDT) Lactic acid 1.3 0.5 - 2.2 mmol/L [facility] DEPARTMENT OF PATHOLOGY AND GENOMIC MEDICINE Specimen Plasma specimen Performing Organization Address [facility] Centercode Phone Number [facility] DEPARTMENT OF PATHOLOGY AND [address] [place] [address] Ionized calcium (05/25/2017 2:45 PM CDT)Only the most recent of2 resultswithin the time period is included. pH 7.46 [facility] DEPARTMENT OF PATHOLOGY AND GENOMIC MEDICINE Ionized calcium 1.06 (L) 1.11 - 1.32 mmol/L [facility] DEPARTMENT OF PATHOLOGY AND GENOMIC MEDICINE Specimen Plasma specimen Performing Organization Address [facility] Centerco[facility] Phone Number [facility] DEPARTMENT OF PATHOLOGY AND [address] [place] [address] Basic metabolic panel (05/25/2017 2:45 PM CDT)Only the most recent of9 resultswithin the time period is included. Sodium 142 135 - 148 mEq/L [facility] DEPARTMENT OF PATHOLOGY AND GENOMIC MEDICINE Potassium 4.0 3.5 - 5.0 mEq/L [facility] DEPARTMENT OF PATHOLOGY AND GENOMIC MEDICINE Chloride 107 98 - 112 mEq/L [facility] DEPARTMENT OF PATHOLOGY AND GENOMIC MEDICINE CO2 24 24 - 31 mEq/L [facility] DEPARTMENT OF PATHOLOGY AND GENOMIC MEDICINE Anion gap 11 7 - 15 mEq/L [facility] DEPARTMENT OF PATHOLOGY Comment: AND GENOMIC [facility] Starting from May , anion gap calculation no longer incorporates potassium. Please note the change. BUN 10 6 - 20 mg/dL [facility] DEPARTMENT OF PATHOLOGY AND GENOMIC MEDICINE Creatinine 0.8 0.5 - 0.9 mg/dL [facility] DEPARTMENT OF PATHOLOGY AND GENOMIC MEDICINE Glucose 297 (H) 65 - 99 mg/dL [facility] DEPARTMENT OF PATHOLOGY AND GENOMIC MEDICINE Calcium 8.1 (L) 8.3 - 10.2 mg/dL [facility] DEPARTMENT OF PATHOLOGY AND GENOMIC [facility] Specimen Plasma specimen Performing Organization Address [facility] [place] Phone Number [facility] DEPARTMENT OF PATHOLOGY AND [address] [place] [phone] [facility] ECG 12 lead (05/25/2017 2:30 PM CDT)Only the most recent of3 resultswithin the time period is included. Ventricular rate 103 [facility] Atrial rate 103 [facility] [place] interval 160 [facility] QRSD interval 72 [facility] QT interval 340 [facility] QTC interval 445 [facility] P axis 1 59 [facility] QRS axis 1 17 HM MUSE T wave axis 41 [facility] MUSE EKG impression Sinus tachycardia-Possible Left atrial [facility] MUSE enlargement-Borderline ECG-In automated comparison with ECG of 19-MAY-2017 11:39,-No significant change was found- Performing Organization Address [facility] [place] Phone Number [facility] MUSE [address] [place] [phone] POC glucose (05/25/2017 2:16 PM CDT) POC glucose 104 (H) 65 - 99 mg/dL [facility] DEPARTMENT OF PATHOLOGY AND Comment: [facility] Notified RN Meter ID: [id number] Laboratory Animal Caretaker: Anna Cano I Performing Organization Address [facility] [place] Phone Number [facility] DEPARTMENT OF PATHOLOGY AND [address] [place] [address] [facility] Zinc level, serum (05/25/2017 6:00 AM CDT) Zinc 61 60 - 120 ug/dL [facility] Comment: INTERPRETIVE INFORMATION: Zinc, Serum or Plasma Circulating zinc concentrations are dependent on albumin status and are depressed with malnutrition. Zinc may also be lowered with infection, inflammation, stress, oral contraceptives, and . Zinc may be elevated with zinc supplementation or fasting. Elevated zinc concentrations may interfere with copper absorption. Test developed and characteristics determined by [facility]. See Compliance Statement B: [email or web address] Performed by [facility], [address] [place] [id number] [email or web address], Ferny Rodríguez MD - Lab. Director Specimen Blood Performing Organization Address City/State/Zipcode Phone Number [facility] [address] [place] [address] CTA Head W Wo Contrast (05/21/2017 8:16 [...] aneurysmal dilatation or vascular malformation of the osage of Rodriguez. The major dural sinuses are opacified normally. The internal cerebral veins opacify. IMPRESSION: No hemodynamically significant narrowing of the osage of Rodriguez vessels. No evidence of dural sinus or venous thrombosis. [facility]-[id number] Procedure Note Interface, Radiology Results Incoming - [...] aneurysmal dilatation or vascular malformation of the osage of Rodriguez. The major dural sinuses are opacified normally. The internal cerebral veins opacify. IMPRESSION: No hemodynamically significant narrowing of the osage of Rodriguez vessels. No evidence of dural sinus or venous thrombosis. [facility]-[id number] Performing Organization Address [facility] Phone Number [facility] [address] [place] [address] CT Cervical Spine Wo Contrast (05/21/2017 8:04 [...] degenerative change. IMPRESSION: No acute osseous abnormality. [facility]-[id number] Procedure Note Hm Interface, Radiology Results Incoming [...] degenerative change. IMPRESSION: No acute osseous abnormality. [facility]-[id number] Performing Organization Address [facility] Phone Number [facility] [address] [place] [address] LISY (05/21/2017 4:24 PM CDT) LISY screen Negative Negative [facility] DEPARTMENT OF PATHOLOGY AND GENOMIC MEDICINE Specimen Blood Performing Organization Address [facility] Centercode Phone Number [facility] DEPARTMENT OF PATHOLOGY AND [address] [place] [address] GENOMIC MEDICINE Folate level (05/21/2017 4:24 PM CDT) Folate 7.3 4.8 - 24.2 ng/mL [facility] DEPARTMENT OF PATHOLOGY AND GENOMIC MEDICINE Specimen Serum Performing Organization Address [facility] Centercode Phone Number [facility] DEPARTMENT OF PATHOLOGY AND [address] MEDICINE Vitamin B12 level (05/21/2017 4:24 PM CDT)Only the most recent of2 resultswithin the time period is included. Vitamin B12 688 211 - 946 pg/mL [facility] DEPARTMENT OF PATHOLOGY Comment: AND GENOMIC MEDICINE Significant overlap exists between normal and deficiency states. However, most patients with deficiencies will have Serum B12 <200 pg/mL. Specimen Serum Performing Organization Address City/[facility] Centercode Phone Number [facility] DEPARTMENT OF PATHOLOGY AND [address] [place] [address] GENOMIC MEDICINE Smear review (05/19/2017 5:10 AM CDT) Platelet slide review David adequate [facility] DEPARTMENT OF PATHOLOGY AND GENOMIC MEDICINE Tear drop cells Occasional [facility] DEPARTMENT OF PATHOLOGY AND GENOMIC MEDICINE Ovalocytes Moderate [facility] DEPARTMENT OF PATHOLOGY AND GENOMIC MEDICINE Performing Organization Address City/[facility] Phone Number [facility] DEPARTMENT OF PATHOLOGY AND [address] [place] [address] MEDICINE IgG synthesis rate study (05/17/2017 2:53 PM CDT) IgG albumin ratio, CSF 0.12 0.00 - 0.23 [facility] DEPARTMENT OF PATHOLOGY AND GENOMIC MEDICINE IgG index, CSF 0.66 (H) 0.01 - 0.63 [facility] DEPARTMENT OF PATHOLOGY AND GENOMIC MEDICINE IgG synthetic rate 1.75 -9.90 - 3.30 mg/day [facility] DEPARTMENT OF PATHOLOGY AND GENOMIC MEDICINE Q-albumin ratio, CSF 3.96 2.00 - 7.50 [facility] DEPARTMENT OF PATHOLOGY AND GENOMIC MEDICINE IgG, CSF 1.15 1.00 - 3.00 mg/dL [facility] DEPARTMENT OF PATHOLOGY AND GENOMIC MEDICINE Albumin, CSF <9.50 (L) 10.00 - 30.00 mg/dL [facility] DEPARTMENT OF PATHOLOGY AND GENOMIC MEDICINE IgG 437 (L) 700 - 1,600 mg/dL [facility] DEPARTMENT OF PATHOLOGY AND GENOMIC MEDICINE Albumin, S 2,400.0 (L) 3,640.0 - 5,304.0 mg/dL [facility] DEPARTMENT OF PATHOLOGY AND GENOMIC MEDICINE Specimen Cerebrospinal fluid Performing Organization Address City/[facility] Phone Number [facility] DEPARTMENT OF PATHOLOGY AND [address] [place] [address] Cytomegalovirus by PCR (05/17/2017 2:53 PM CDT) Cytomegalovirus by PCR Not-Detected Not-Detected IU/mL [facility] DEPARTMENT OF PATHOLOGY AND [facility] MEDICINE Cytomegalovirus by PCR See link below for [facility] DEPARTMENT OF PDF Lab PATHOLOGY AND GENOMIC ReportComment: Case MEDICINE Number: [id number] Performing Organization Address City/State/[facility] Phone Number [facility] DEPARTMENT OF PATHOLOGY AND [address] [place] [address] Varicella zoster by PCR (05/17/2017 2:53 PM CDT) VZV result Not-Detected Not-Detected [facility] DEPARTMENT OF copies/mL PATHOLOGY AND GENOMIC MEDICINE Varicella zoster, PCR See link below for [facility] DEPARTMENT OF PDF Lab PATHOLOGY AND GENOMIC ReportComment: Case MEDICINE Number: [id number] Performing Organization Address City/State/[facility]ercode Phone Number [facility] DEPARTMENT OF PATHOLOGY AND [address] [place] [address] Herpes simplex virus by PCR (05/17/2017 2:53 PM CDT) Herpes virus, PCR Not-Detected Not-Detected [facility] DEPARTMENT OF PATHOLOGY AND GENOMIC MEDICINE Herpes virus, PCR See link below for PDF [facility] DEPARTMENT OF PATHOLOGY Lab ReportComment: Case AND GENOMIC MEDICINE Number: [id number] Performing Organization Address City/[facility]ercode Phone Number [facility] DEPARTMENT OF PATHOLOGY AND [address] [place] [address] Lynda Malone Virus (EBV) by PCR (05/17/2017 2:53 PM CDT) Lynda Malone virus, PCR Not-Detected Not-Detected [facility] DEPARTMENT OF copies/mL PATHOLOGY AND GENOMIC MEDICINE Lynda Malone virus, PCR See link below for [facility] DEPARTMENT OF PDF Lab PATHOLOGY AND GENOMIC ReportComment: Case MEDICINE Number: [id number] Performing Organization Address City/[facility] Centercode Phone Number [facility] DEPARTMENT OF PATHOLOGY AND [address] [place] [address] AFB culture (05/17/2017 2:53 PM CDT) AFB culture isolate No growth after 6 weeks of incubation. [facility] DEPARTMENT OF PATHOLOGY Comment: AND GENOMIC MEDICINE Specimen Information Specimen Source: CSF (Spinal Fluid) Specimen Site: No tube number noted Specimen Cerebrospinal fluid - No tube number noted Performing Organization Address City/State/Zipcode Phone Number [facility] DEPARTMENT OF PATHOLOGY AND [address] [place] [address] Cryptococcal antigen, screen (05/17/2017 2:53 PM CDT) Cryptococcal Ag Negative - No Cryptococcus antigen detected. [facility] DEPARTMENT OF PATHOLOGY Comment: AND [employer] MEDICINE Specimen Information Specimen Source: CSF (Spinal Fluid) Specimen Site: No tube number noted Specimen Cerebrospinal fluid - No tube number noted Performing Organization Address City/State/Zipcode Phone Number [facility] DEPARTMENT OF PATHOLOGY AND [address] [place] [id number] [place] [address] Enterovirus by PCR (05/17/2017 2:53 PM CDT) Enterovirus PCR Not-Detected Not-Detected [facility] DEPARTMENT OF PATHOLOGY AND [facility] Enterovirus PCR See link below for PDF Lab [facility] DEPARTMENT OF PATHOLOGY ReportComment: Case AND GENOMIC [facility] Number: [id number] Performing Organization Address City/State/Zipcode Phone Number [facility] DEPARTMENT OF PATHOLOGY AND [address] [place] [address] Gram stain (05/17/2017 2:53 PM CDT) Gram stain isolate Rare WBC's [facility] DEPARTMENT OF PATHOLOGY No organisms seen AND [employer] MEDICINE Comment: Specimen Information Specimen Source: CSF (Spinal Fluid) Specimen Site: No tube number noted Specimen Cerebrospinal fluid - No tube number noted Performing Organization Address City/State/Zipcode Phone Number [facility] DEPARTMENT OF PATHOLOGY AND [address] [place] [address] CSF culture (05/17/2017 2:53 PM CDT) CSF culture isolate No growth after 3 days. [facility] DEPARTMENT OF PATHOLOGY Comment: AND [employer] MEDICINE Specimen Information Specimen Source: CSF (Spinal Fluid) Specimen Site: No tube number noted Specimen Cerebrospinal fluid - No tube number noted Performing Organization Address City/State/Zipcode Phone Number [facility] DEPARTMENT OF PATHOLOGY AND [address] [place], [place] [id number] [employer] [facility] Fungus culture (05/17/2017 2:53 PM CDT) Fungus culture isolate No growth after 4 weeks of incubation. [facility] DEPARTMENT OF Comment: PATHOLOGY AND GENOMIC Specimen Information MEDICINE Specimen Source: CSF (Spinal Fluid) Specimen Site: No tube number noted Specimen Cerebrospinal fluid - No tube number noted Performing Organization Address City/State/Zipcode Phone Number [facility] DEPARTMENT OF PATHOLOGY AND [address] [place] [address] CSF cell count with differential (05/17/2017 2:53 PM CDT) Color, CSF Colorless [facility] DEPARTMENT OF PATHOLOGY AND GENOMIC MEDICINE Appearance, CSF Clear [facility] DEPARTMENT OF PATHOLOGY AND GENOMIC MEDICINE RBC, CSF 2,150 (H) 0 - 1 /CMM [facility] DEPARTMENT OF PATHOLOGY AND GENOMIC MEDICINE WBC, CSF 1 0 - 5 /CMM [facility] DEPARTMENT OF Comment: PATHOLOGY AND GENOMIC Corrected result(s) called to STEPHANY LORA/SHERYL (name/location) at2017 MEDICINE 19:01 (date/time) by [place]__. Corrected result; previously reported as 7 on 05/17/2017 at 17:58 by [place] CSF mononuclear cell 1/CMM [facility] DEPARTMENT OF PATHOLOGY AND GENOMIC MEDICINE Specimen Cerebrospinal fluid Performing Organization Address City/[facility] Centercode Phone Number [facility] DEPARTMENT OF PATHOLOGY AND [address] [place] [address] Protein, CSF (05/17/2017 2:53 PM CDT) Protein, CSF 18 15 - 45 mg/dL [facility] DEPARTMENT OF PATHOLOGY AND GENOMIC MEDICINE Specimen Cerebrospinal fluid Performing Organization Address City/[facility] Centercode Phone Number [facility] DEPARTMENT OF PATHOLOGY AND [address] [place] [address] Glucose level, CSF (05/17/2017 2:53 PM CDT) Glucose, CSF 62 40 - 70 mg/dL [facility] DEPARTMENT OF PATHOLOGY AND GENOMIC MEDICINE Specimen Cerebrospinal fluid Performing Organization Address [facility] Centercoar Phone Number [facility] DEPARTMENT OF PATHOLOGY AND [address] [place] [address] IR Lumbar Puncture by Radiology (05/17/2017 1:52 [...] puncture to evaluate for headache and meningitis. [facility]-[id number] Procedure Note Hm Interface, Radiology Results Incoming - 05/17/2017 2:24 [...] puncture to evaluate for headache and meningitis. [facility]-[id number] Performing Organization Address City/State/Zipcode Phone Number [facility] [address] [place] [address] CT Stroke Brain Wo Contrast (05/17/2017 9:04 AM CDT) Narrative Performed At EXAMINATION: CT STROKE BRAIN WO CONTRAST [facility] CLINICAL HISTORY: STROKE COMPARISON: NONE TECHNIQUE: Noncontrast [...] and she verbalized understanding of the report. [id number] Procedure Note Interface, Radiology Results Incoming - [...] and she verbalized understanding of the report. [id number] Performing Organization Address City/State/Zipcode Phone Number [facility] [address] [place] [address] CBC hemogram (05/15/2017 5:00 AM CDT)Only the most recent of2 resultswithin the time period is included. WBC 5.20 4.50 - 11.00 k/uL [facility] DEPARTMENT OF PATHOLOGY AND GENOMIC MEDICINE RBC 3.80 (L) 4.20 - 5.50 m/uL [facility] DEPARTMENT OF PATHOLOGY AND GENOMIC MEDICINE HGB 11.3 (L) 12.0 - 16.0 g/dL [facility] DEPARTMENT OF PATHOLOGY AND GENOMIC MEDICINE HCT 35.5 (L) 37.0 - 47.0 % [facility] DEPARTMENT OF PATHOLOGY AND GENOMIC MEDICINE MCV 93.4 82.0 - 100.0 fL [facility] DEPARTMENT OF PATHOLOGY AND GENOMIC MEDICINE MCH 29.7 27.0 - 34.0 pg [facility] DEPARTMENT OF PATHOLOGY AND GENOMIC MEDICINE MCHC 31.8 31.0 - 37.0 g/dL [facility] DEPARTMENT OF PATHOLOGY AND GENOMIC MEDICINE RDW - SD 45.9 37.0 - 55.0 fL [facility] DEPARTMENT OF PATHOLOGY AND GENOMIC MEDICINE MPV 10.8 8.8 - 13.2 fL [facility] DEPARTMENT OF PATHOLOGY AND GENOMIC MEDICINE Platelet count 210 150 - 400 k/uL [facility] DEPARTMENT OF PATHOLOGY AND GENOMIC MEDICINE Nucleated RBC 0.00 /100 WBC [facility] DEPARTMENT OF PATHOLOGY AND GENOMIC MEDICINE Specimen Blood Performing Organization Address City/[facility] Centercode Phone Number [facility] DEPARTMENT OF PATHOLOGY AND [address] [place] [address] Thyroid stimulating hormone (05/15/2017 5:00 AM CDT) TSH 2.19 0.27 - 4.20 uIU/mL [facility] DEPARTMENT OF PATHOLOGY AND GENOMIC MEDICINE Specimen Plasma specimen Performing Organization Address City/[facility] Centercode Phone Number [facility] DEPARTMENT OF PATHOLOGY AND [address] [place] [address] MEDICINE T4, free (05/15/2017 5:00 AM CDT) T4, free 1.0 0.9 - 1.7 ng/dL [facility] DEPARTMENT OF PATHOLOGY AND GENOMIC MEDICINE Specimen Plasma specimen Performing Organization Address City/[facility] Centercoar Phone Number [facility] DEPARTMENT OF PATHOLOGY AND [address] [place] [address] Phosphorus level (05/15/2017 5:00 AM CDT)Only the most recent of2 resultswithin the time period is included. Phosphorus 3.1 2.4 - 4.5 mg/dL [facility] DEPARTMENT OF PATHOLOGY AND GENOMIC MEDICINE Specimen Plasma specimen Performing Organization Address [facility] Centercode Phone Number [facility] DEPARTMENT OF PATHOLOGY AND [address] [place] [address] [employer] MEDICINE Lipid panel (05/15/2017 5:00 AM CDT) Cholesterol 240 (H) <200 mg/dL [facility] DEPARTMENT OF PATHOLOGY AND GENOMIC MEDICINE Triglycerides 184 (H) <150 mg/dL [facility] DEPARTMENT OF PATHOLOGY AND GENOMIC MEDICINE HDL cholesterol 72 >40 mg/dL [facility] DEPARTMENT OF PATHOLOGY AND GENOMIC MEDICINE LDL cholesterol 154 (H)Comment: Result <100 mg/dL [facility] DEPARTMENT OF obtained by direct LDL PATHOLOGY AND GENOMIC measurement MEDICINE Lipid panel interpretation SeeBelow [facility] DEPARTMENT OF Comment: PATHOLOGY AND GENOMIC Total Cholesterol (mg/dL) MEDICINE <200 Desirable [id number] >=240High Triglycerides (mg/dL) <150 Normal [id number]-[id number] 200-499High >=500Very high HDL Cholesterol (mg/dL) <40Low (male) <40Low (female) LDL Cholesterol (mg/dL) <100 Optimal 100-129Near or above optimal [phone]-gaem 160-189High >=190Very high Risk Catergories that modify [...] specimen Performing Organization Address City/State/Zipcode Phone Number [facility] DEPARTMENT OF PATHOLOGY AND [address] [place] [address] [employer] [facility] Hemoglobin A1c (05/14/2017 5:15 PM CDT)Only the most recent of2 resultswithin the time period is included. Hemoglobin A1C 5.4 4.0 - 5.6 % [facility] DEPARTMENT OF PATHOLOGY Comment: AND GENOMIC MEDICINE HbA1c cutoffs for diagnosing diabetes: 4.0% - 5.6%=normal 5.7% - 6.4%=increased risk for diabetes (prediabetes) >=6.5%=diabetes Goals for glycemic control (ADA 2016) < 7.0%Target for non adults with diabetes. More or less stringent targets may be appropriate for individual patients. <7.5% Target for Children and adolescents with type 1 diabetes. Performing Organization Address City/State/[facility] Centercode Phone Number [facility] DEPARTMENT OF PATHOLOGY AND [address] [place] [address] [employer] [facility] Urinalysis screen and microscopy, with reflex to culture (05/14/2017 3:38 PM CDT) Specimen site Clean catch [facility] DEPARTMENT OF PATHOLOGY AND GENOMIC MEDICINE Color, UA Straw [facility] DEPARTMENT OF PATHOLOGY AND GENOMIC MEDICINE Appearance, UA Clear [facility] DEPARTMENT OF PATHOLOGY AND GENOMIC MEDICINE Specific gravity, UA 1.008 1.001 - 1.035 [facility] DEPARTMENT OF PATHOLOGY AND GENOMIC MEDICINE pH, UA 6.0 5.0 - 8.5 [facility] DEPARTMENT OF PATHOLOGY AND GENOMIC MEDICINE Protein, UA Negative Negative [facility] DEPARTMENT OF PATHOLOGY AND GENOMIC MEDICINE Glucose, UA Negative Negative [facility] DEPARTMENT OF PATHOLOGY AND GENOMIC MEDICINE Ketones, UA Negative Negative [facility] DEPARTMENT OF PATHOLOGY AND GENOMIC MEDICINE Bilirubin, UA Negative Negative [facility] DEPARTMENT OF PATHOLOGY AND GENOMIC MEDICINE Blood, UA Negative Negative [facility] DEPARTMENT OF PATHOLOGY AND GENOMIC MEDICINE Nitrite, UA Negative Negative [facility] DEPARTMENT OF PATHOLOGY AND GENOMIC MEDICINE Urobilinogen, UA <2.0 <2.0 [facility] DEPARTMENT OF PATHOLOGY AND GENOMIC MEDICINE Leukocyte esterase, UA Negative Negative [facility] DEPARTMENT OF PATHOLOGY AND GENOMIC MEDICINE Epithelial cells, UA 3 /HPF [facility] DEPARTMENT OF PATHOLOGY AND GENOMIC MEDICINE WBC, UA <1 0 - 4 /HPF [facility] DEPARTMENT OF PATHOLOGY AND GENOMIC MEDICINE RBC, UA None seen 0 - 5 /HPF [facility] DEPARTMENT OF PATHOLOGY AND GENOMIC MEDICINE Bacteria, UA Few None seen [facility] DEPARTMENT OF PATHOLOGY AND GENOMIC MEDICINE Yeast, UA None seen [facility] DEPARTMENT OF PATHOLOGY AND GENOMIC MEDICINE Yeast with pseudohyphae, UA None seen [facility] DEPARTMENT OF PATHOLOGY AND GENOMIC MEDICINE Specimen Urine Performing Organization Address City/[facility] Centercode Phone Number [facility] DEPARTMENT OF PATHOLOGY AND [address] [place] [address] hCG qualitative, urine screen (05/14/2017 3:38 PM CDT) hCG qualitative, urine NegativeComment: [facility] DEPARTMENT OF Sensitivity of HCG test: 25 PATHOLOGY AND GENOMIC mIU/mL MEDICINE Specimen Urine Performing Organization Address City/[facility] Centercode Phone Number [facility] DEPARTMENT OF PATHOLOGY AND [address] [place] [address] [facility] Urine culture (05/14/2017 3:38 PM CDT) Urine culture SEE COMMENTComment: Bacteriuria [facility] DEPARTMENT OF PATHOLOGY screen negative. AND GENOMIC MEDICINE Specimen Urine Performing Organization Address City/[facility] Centercode Phone Number [facility] DEPARTMENT OF PATHOLOGY AND [address] [place] [phone] GENOMIC MEDICINE Valproic acid level (05/14/2017 3:34 PM CDT) Valproic acid 33.6 (L) 50.0 - 100.0 ug/mL [facility] DEPARTMENT OF PATHOLOGY AND Comment: GENOMIC MEDICINE Therapeutic Range: 50 - 100 ug/mL Specimen Plasma specimen Performing Organization Address City/State/Zipcode Phone Number [facility] DEPARTMENT OF PATHOLOGY AND [address] [place] [address] GENOMIC MEDICINE PV duplex venous upper extremity (05/14/2017 3:00 PM CDT) Narrative Performed At [facility] Vascular Ultrasound Laboratory Upper Extremity Venous Report [address] [facility] [address], [place] [address] Pat.Name:LUIS FELIPE MCCRARY.ID:[id number] .Date: 05/14/2017Refer.MD:PHYSICIAN, EMERGENCY, MD Exam Time: 2:39:00 PMStudy Type:UE Venous DOBAge:1980,37YSex: FEMALE Sonogrphr: [place]ar [place] RVT Room:ER TapeVol: , CPT - 4: 62339 Echo Event ID:[id number] Order ID:[id number] Reason for Study:Right upper extremity edema and [...] preliminary results given to Dr. Leyva @ 3765 PHYSICIAN INTERPRETATION 1.Venous examination of the right upper extremity, neck and left subclavian vein demonstratesthrombosis right cephalic vein Signed 05/14/2017 03:42 PM Louis Kaba MD Procedure Note Interface, Radiology Results In - 05/14/2017 3:43 PM CDT Vascular Ultrasound Laboratory Upper Extremity Venous Report [id number] [place] [id number] Pat.Name: LUIS FELIPE MCCRARY.ID: [id number] .Date: 05/14/2017 Refer.MD: PHYSICIAN, EMERGENCY, MD Exam Time: 2:39:00 PM Study Type:UE Venous Age: 2 1980,37Y Sex: FEMALE Sonogrphr: Bandar [place] RVT Room: ER Tape Vol: VB, CPT - 4: 04200 Echo Event ID:[id number] Order ID: [id number] Reason for Study:Right upper extremity edema and [...] preliminary results given to Dr. Leyva @ [facility] PHYSICIAN INTERPRETATION 1. Venous examination of the right upper extremity, neck and left subclavian vein demonstrates thrombosis right cephalic vein Signed 05/14/2017 03:42 PM Louis Kaba MD Performing Organization Address City/State/Zipcode Phone Number [facility] [address] [place] [address] CT Abdomen Pelvis W Contrast (04/29/2017 12:25 PM CDT) Narrative Performed At EXAMINATION:CT ABDOMEN PELVIS W CONTRAST [facility] CLINICAL HISTORY:R10.84 Generalized abdominal pain, ABDOMINAL [...] aorta is unremarkable. Osseous structures are intact. [facility]-[id number] Procedure Note Interface, Radiology Results Incoming - [...] aorta is unremarkable. Osseous structures are intact. [facility]-[id number] Performing Organization Address City/State/Zipcode Phone Number [facility] [address] [place] [address] Lipase level (04/14/2017 11:23 AM ESE TEACHER)Only the most recent of2 resultswithin the time period is included. Lipase 20 7 - 60 U/L [employer] [place] Specimen Blood Narrative Performed At FASTING:NO [facility] FASTING: NO Resulting Agency Comment Performing Organization Information: Site ID: A Name: [facility] Address: [address] [place] [phone] Director: Tierra Vance MD Performing Organization Address City/[facility] Centercoar Phone Number [employer] [place] [address] [place] [address] [phone] Amylase level (04/14/2017 11:23 AM ESE TEACHER)Only the most recent of2 resultswithin the time period is included. Amylase 56 21 - 101 U/L [facility] [employer] [place] Specimen Blood Narrative Performed At FASTING:NO [facility] FASTING: NO Resulting Agency Comment Performing Organization Information: Site ID: A Name: [facility] Address: [address] [place] [phone] Director: Tierra Vance MD Performing Organization Address [facility] Centerco[facility] Phone Number [employer] [place] [address] [place] [phone] Comprehensive metabolic panel (04/14/2017 11:23 AM ESE TEACHER)Only the most recent of2 resultswithin the time period is included. Glucose 115 (H) 65 - 99 mg/dL [employer] Comment: [place] Fasting reference interval For someone without known diabetes, a glucose value between 100 and 125 mg/dL is consistent with prediabetes and should be confirmed with a follow-up test. BUN, whole blood 9 7 - 25 mg/dL [employer] [place] Creatinine 0.82 0.50 - 1.10 mg/dL [employer] [place] EGFR Non-Afr. Hong [place]er 92 > OR=60 [facility] mL/min/1.73m2 [place] EGFR 107 > OR=60 [facility] mL/min/1.73m2 [place] BUN/creatinine ratio NOT APPLICABLE 6 - 22 (calc) [employer] [facility] Sodium 139 135 - 146 mmol/L [employer] [facility] Potassium 4.7 3.5 - 5.3 mmol/L [facility] [place] Chloride 102 98 - 110 mmol/L [facility] [place] CO2 30 20 - 31 mmol/L [employer] [place] Calcium 9.1 8.6 - 10.2 mg/dL [employer] [place] Protein 6.5 6.1 - 8.1 g/dL [employer] [facility] Albumin, S 3.9 3.6 - 5.1 g/dL [employer] [place] Globulin, total 2.6 1.9 - 3.7 g/dL [facility] (calc) [place] Albumin/globulin ratio 1.5 1.0 - 2.5 (calc) [facility] [place] Total bilirubin 0.2 0.2 - 1.2 mg/dL [facility] [place] Alkaline phosphatase 62 33 - 115 U/L [facility] [place] AST 11 10 - 30 U/L [facility] [place] ALT 8 6 - 29 U/L [facility] [place] Specimen Blood Narrative Performed At FASTING:NO [facility] FASTING: NO Resulting Agency Comment Performing Organization Information: Site ID: [id number] Name: [facility] Address: [address] [place] [phone] Director: Tierra Vance MD Performing Organization Address City/State/[facility] Center[facility] Phone Number [employer] [address] [address] HLA Typing for Celiac Disease (04/06/2017 11:52 AM ESE TEACHER) Interpretation see note [facility] Comment: [facility] The patient does not have the HLA-DQ variants [place] associated with celiac disease. More than 97% of celiac patients carry either HLA-DQ2(DQA1*05/DQB1*02) or HLA-DQ8(DQA1*03/DQB1*0302) or both. Genetic counseling as needed. HLA DQ2 Negative [facility] HLA DQ8 Negative [facility] HLA variants detected: HLA 1 [facility] DQA1 [facility] HLA DQA1 1 [facility] HLA DQB1 501 [facility] HLA DQB1 604 [facility] Reviewed by see note [facility] Comment: [facility] Steve Galarza, Ph.D., [facility] Director, Molecular Genetics Typing performed by PCR and hybridization with sequence specific oligonucleotide probes (SSO) using the FDA-cleared LABType(R) SSO Kit. Specimen Blood Narrative Performed At FASTING:NO [facility] FASTING: NO Resulting Agency Comment Performing Organization Information: Site ID: AMD Name: [employer] [facility] Address: [address] [place] [address] Director: John Morales M.D.,PhD Performing Organization Address City/State/Zipcode Phone Number [facility] [address] [place], [place] [phone] [place] LISY SCREEN W IFA W REFLEX TO TITER (03/16/2017 9:07 AM ESE TEACHER) LISY screen NEGATIVE NEGATIVE [facility] II Comment: LISY IFA is a first line screen for detecting the presence of up to approximately 150 autoantibodies in various autoimmune diseases. A negative LISY IFA result suggests LISY-associated autoimmune diseases are not present at this time. Visit Physician FAQs for interpretation of all antibodies in the [place], prevalence, and association with diseases at http://education.[employer]/ faq/YTY704 Specimen Blood Narrative Performed At FASTING:YES [facility] FASTING: YES Resulting Agency Comment Performing Organization Information: Site ID: [id number] Name: [facility] Address: [address] [place] [phone] Director: Dr. Jacek Andujar Performing Organization Address [facility] Centercode Phone Number [employer] [place] [phone] TEST AUTHORIZATION (03/16/2017 9:07 AM ESE TEACHER) TEST(S) ORDERED ON CELIAC DISEASE [facility] TEST CODE: [id number] [employer] [facility] [facility] CLIENT CONTACT: JULIANA SIFUENTESOUB [facility] REPORT ALWAYS MESSAGE [facility] SIGNATURE Comment: [facility]-[place] II The laboratory testing on this patient was verbally requested or confirmed by the ordering physician or his or her authorized small business representative after contact with an employee of [employer]. Federal regulations require that we maintain on file written authorization for all laboratory testing.Accordingly we are asking that the ordering physician or his or her authorized small business representative sign a copy of this report and promptly return it to the client success specialist. Signature: (Always message) [facility] Comment: [facility] II Please fax this signed form to [phone]. Please do not attempt to return this document by other methods. Documents will not be viewed by a small business representative. Please do not use this fax number for other service requests. Narrative Performed At FASTING:YES [facility] FASTING: YES Resulting Agency Comment Performing Organization Information: Site ID: IG Name: [facility] Address: [address] [place] [phone] Director: Dr. Jacek Andujar Performing Organization Address [facility] Centercode Phone Number [employer] II [address] [place] [address] SS-B antibody (03/16/2017 9:07 AM ESE TEACHER) Sjogren's SS-B antibody <1.0 NEG <1.0 NEG [facility] II Specimen Blood Narrative Performed At FASTING:YES [facility] FASTING: YES Resulting Agency Comment Performing Organization Information: Site ID: IG Name: [facility] Address: [address] [place] [phone] Director: Dr. Jacek Andujar Performing Organization Address [facility] Centercoar Phone Number XinrongVING II [address] [place] [address] SS-A antibody (03/16/2017 9:07 AM ESE TEACHER) Sjogren's SS-A antibody <1.0 NEG <1.0 NEG AI [employer]-CHRISTOPHER II Specimen Blood Narrative Performed At FASTING:YES [facility] FASTING: YES Resulting Agency Comment Performing Organization Information: Site ID: IG Name: [facility] Lab Address: [address] [place] [phone] Director: Dr. Jacek Andujar Performing Organization Address [facility] Centercode Phone Number XinrongVING II [address] [place] [address] Mayi-1 antibody (03/16/2017 9:07 AM ESE TEACHER) Mayi-1 antibody <1.0 NEG <1.0 NEG AI [employer]-[place] II Specimen Blood Narrative Performed At FASTING:YES [facility] FASTING: YES Resulting Agency Comment Performing Organization Information: Site ID: IG Name: [facility] Address: [address] [place] [phone] Director: Dr. Jacek Andujar Performing Organization Address City/[facility]/Zipcode Phone Number myJambi BHUMIKA-CHRISTOPHER II [address] [facility] [place], [place] [phone] Acetylcholine receptor binding Ab (03/16/2017 9:07 AM ESE TEACHER) Acetylcholine receptor <0.30 nmol/L [facility] binding Ab Comment: [facility] [facility] Reference Ranges for Acetylcholine Receptor Binding Antibody: Negative: < or=0.30 nmol/L Equivocal:0.31-0.49 nmol/L Positive: > or=0.50 nmol/L Specimen Blood Narrative Performed At FASTING:YES [facility] FASTING: YES Resulting Agency Comment Performing Organization Information: Site ID: Name: [facility], Address: [address] [place] [phone] Director: Richard Hodge MD,PhD Performing Organization Address [facility] Centercode Phone Number [facility]i DIAGNOST[facility] [address] [address] [phone] [facility] Celiac disease panel (03/16/2017 9:07 AM ESE TEACHER) Interpretation see note [facility] Comment: [facility]ST[facility]/[place] No serological evidence for celiac disease is present. JAGJIT Consider IgA deficiency. Tissue transglutaminase Ab, 1 <4 U/mL [facility] IgA Comment: DI[facility]NOST[facility]/[place] JAGJIT Value Interpretation <4 U/mL: No Antibody Detected >or=4 U/mL: Antibody Detected IgA 47 (L) 81 - 463 mg/dL [facility] Narrative Performed At FASTING:YES [facility] FASTING: YES Resulting Agency Comment Performing Organization Information: Site ID: AMD Name: [facility] Address: [address] [place] [phone] Director: John Morales M.D.,PhD Performing Organization Address [facility] Centercode Phone Number [facility] [address] [place], [place] [phone] [place] Tissue transglutaminase Ab, IgG (03/16/2017 9:07 AM ESE TEACHER) Tissue transglutaminase Ab, 3 <6 U/mL [facility] IgG Comment: DI[facility]NOST[facility]/[place] Value Interpretation <6 U/mL: No Antibody Detected >or=6 U/mL: Antibody Detected Narrative Performed At FASTING:YES [facility] FASTING: YES Resulting Agency Comment Performing Organization Information: Site ID: AMD Name: [facility] [facility] Address: [address] [place] [phone] Director: John Morales M.D.,PhD Performing Organization Address City/State/Zipcode Phone Number [facility] [address] [place] [address] [phone] [place] Aldolase, serum (03/16/2017 9:07 AM ESE TEACHER) Aldolase 2.9 < OR=8.1 U/L [facility]-[place]STOPHER II Specimen Blood Narrative Performed At FASTING:YES [facility] FASTING: YES Resulting Agency Comment Performing Organization Information: Site ID: IG Name: [facility] Address: [address] [place] [phone] Director: Dr. Jacek Andujar Performing Organization Address [facility] Centercode Phone Number [employer] [address] [place] [address] Vitamin D 25 hydroxy level (03/16/2017 9:07 AM ESE TEACHER) Vitamin D, 25-hydroxy 23 (L) 30 - 100 ng/mL [facility] Comment: [place] Vitamin D Status 25-OH Vitamin D: Deficiency:<20 ng/mL Insufficiency: 20 - 29 ng/mL Optimal: > or=30 ng/mL For 25-OH Vitamin D testing on patients on D2-supplementation and patients for whom quantitation of D2 and D3 fractions is required, the QuestAssureD(TM) 25-OH VIT D, (D2,D3), LC/MS/MS is recommended: order code 83493 (patients >2yrs). For more information on this test, go to: http://education.Nanigans.Cytonics/faq/XOK350 (This link is being provided for informational/educational purposes only.) Specimen Blood Narrative Performed At FASTING:YES [facility] FASTING: YES Resulting Agency Comment Performing Organization Information: Site ID: RGA Name: [facility] Address: [address] [place] [phone] Director: Tierra Vance MD Performing Organization Address [facility] Centercode Phone Number [employer] [address] [address] Urinalysis, automated with microscopy (03/16/2017 9:07 AM ESE TEACHER) Color, UA YELLOW YELLOW [facility] [employer] [place] Appearance CLEAR CLEAR [facility] [place] Specific gravity, urine 1.015 1.001 - 1.035 [facility] [place] pH, urine 6.0 5.0 - 8.0 [facility] [place] Glucose, urine NEGATIVE NEGATIVE [facility] [place] Bilirubin, UA NEGATIVE NEGATIVE [facility] [place] Ketones, UA NEGATIVE NEGATIVE [facility] [place] Occult blood, urine NEGATIVE NEGATIVE [facility] [place] Protein, UA NEGATIVE NEGATIVE [facility] [place] Nitrite, UA NEGATIVE NEGATIVE [facility] [place] Leukocyte esterase, UA NEGATIVE NEGATIVE [facility] [place] WBC, UA NONE SEEN < OR=5 /HPF [facility] [place] RBC, UA NONE SEEN < OR=2 /HPF [facility] [place] Squamous epithelial cells, UA 0-5 < OR=5 /HPF [facility] [place] Bacteria, UA NONE SEEN NONE SEEN /HPF [facility] [place] Hyaline casts, UA NONE SEEN NONE SEEN /LPF [facility] [place] Specimen Urine Narrative Performed At FASTING:YES [facility] FASTING: YES Resulting Agency Comment Performing Organization Information: Site ID: RGA Name: [facility] Address: [address] [place] [phone] Director: Tierra Vance MD Performing Organization Address [facility] Centercode Phone Number [employer] [address] [address] Angiotensin converting enzyme (03/16/2017 9:07 AM ESE TEACHER) Angiotensin converting enzyme 53 9 - 67 U/L [employer] II Specimen Blood Narrative Performed At FASTING:YES [facility] FASTING: YES Resulting Agency Comment Performing Organization Information: Site ID: IG Name: [facility] Address: [address] [place] [phone] Director: Dr. Jacek Andujar Performing Organization Address City/[facility]/Zipcode Phone Number Xinrong[address] [address] Complement activity, total (03/16/2017 9:07 AM ESE TEACHER) Complement activity, total >60 (H) 31 - 60 U/mL [facility] [facility] Specimen Blood Narrative Performed At FASTING:YES [facility] FASTING: YES Resulting Agency Comment Performing Organization Information: Site ID: EZ Name: [facility] [facility]-[place], Address: [address] [place] [phone] Director: Richard Hodge MD,PhD Performing Organization Address City/State/[facility] Centercode Phone Number [facility]/[place] [address] [place] [address] [facility] C3 complement component (03/16/2017 9:07 AM ESE TEACHER) C3 complement 164 83 - 193 mg/dL [employer] [place] Specimen Blood Narrative Performed At FASTING:YES [facility] FASTING: YES Resulting Agency Comment Performing Organization Information: Site ID: RGA Name: [facility] Address: [address] [place] [phone] Director: Tierra Vance MD Performing Organization Address [facility] Centercoar Phone [place] [address] C4 complement component (03/16/2017 9:07 AM ESE TEACHER) C4 complement 30 15 - 57 mg/dL [employer] [place] Specimen Blood Narrative Performed At FASTING:YES [facility] FASTING: YES Resulting Agency Comment Performing Organization Information: Site ID: RGA Name: [facility] Address: [address] [place] [phone] Director: Tierra Vance MD Performing Organization Address [facility] Centerco[facility] Phone [place] [address] C-reactive protein (03/16/2017 9:07 AM ESE TEACHER) CRP 8.2 (H) <8.0 mg/L [facility] [employer] [place] Specimen Blood Narrative Performed At FASTING:YES [facility] FASTING: YES Resulting Agency Comment Performing Organization Information: Site ID: RGA Name: [facility] Address: [address] [place] [phone] Director: Tierra Vance MD Performing Organization Address [facility] Phone Number [employer] [address] [address] Parathyroid hormone (03/16/2017 9:07 AM ESE TEACHER) PTH 66 (H) 14 - 64 pg/mL [employer] TechnologiesB[facility]STOL[facility] Comment: II Interpretive GuideIntact PTH Calcium ------- Normal ParathyroidNormal Normal HypoparathyroidismLow or Low NormalLow Hyperparathyroidism PrimaryNormal or High High SecondaryHigh Normal or Low Tertiary High High Non-Parathyroid HypercalcemiaLow or Low NormalHigh Specimen Blood Narrative Performed At FASTING:YES [facility] FASTING: YES Resulting Agency Comment Performing Organization Information: Site ID: IG Name: [facility] Address: [address] [place] [phone] Director: Dr. Jacek Andujar Performing Organization Address [facility] Phone Number [employer] [address] Creatine kinase, total (CPK) (03/16/2017 9:07 AM ESE TEACHER) Creatine kinase 82 29 - 143 U/L [employer] [place] Specimen Blood Narrative Performed At FASTING:YES [facility] FASTING: YES Resulting Agency Comment Performing Organization Information: Site ID: RGA Name: [facility] Address: [address] [place] [phone] Director: Tierra Vance MD Performing Organization Address [facility] [place] Phone Number [employer] [address] [address] Surgical pathology request (03/11/2017 4:43 PM ESE TEACHER) [facility] DEPARTMENT OF PATHOLOGY AND GENOMIC MEDICINE Surgical pathology report See link below for PDF [facility] DEPARTMENT OF Lab Report PATHOLOGY AND GENOMIC MEDICINE Result status This is Final Report to [facility] DEPARTMENT OF [id number] PATHOLOGY AND GENOMIC MEDICINE Performing Organization Address City/[facility] Centercode Phone Number [facility] DEPARTMENT OF PATHOLOGY AND [address] [place] [address] GENOMIC MEDICINE MRI Abdomen W Wo Contrast (03/02/2017 8:20 AM ESE TEACHER) Narrative Performed At EXAMINATION:MRI ABDOMEN W WO CONTRAST [facility] [place] CLINICAL HISTORY: 37 years [id number] Abnormal findings [...] 2.Status post cholecystectomy. 3.Additional findings as above. [facility]-[id number] Procedure Note [facility], Radiology Results Incoming - 03/02/2017 8:51 AM ESE TEACHER EXAMINATION: MRI ABDOMEN W WO CONTRAST CLINICAL [...] post cholecystectomy. 3. Additional findings as above. [facility]-[id number] Performing Organization Address City/State/Zipcode Phone Number [facility] [address] [place] [address] Total iron binding capacity (02/24/2017 1:15 PM ESE TEACHER) Iron level 81 40 - 190 mcg/dL [employer] [place] Iron binding capacity 577 (H) 250 - 450 mcg/dL (calc) [employer] [place] Iron saturation 14 11 - 50 % (calc) [employer] [place] Specimen Blood Narrative Performed At FASTING:NO [facility] FASTING: NO Resulting Agency Comment Performing Organization Information: Site ID: RGA Name: [facility] Address: [address] [place] [phone] Director: Tierra Vance MD Performing Organization Address [facility] Centercode Phone Number [employer] [address] [address] Reticulocyte count, automated (02/24/2017 1:15 PM ESE TEACHER) Retic count, manual 1.6 % [employer] [place] Retic absolute, auto 65,280 20,000 - 80,000 cells/uL [employer] [place] Specimen Blood Narrative Performed At FASTING:NO [facility] FASTING: NO Resulting Agency Comment Performing Organization Information: Site ID: RGA Name: [facility] Address: [address] [place] [phone] Director: Tierra Vance MD Performing Organization Address [facility] Centercode Phone Number [employer] [place] [phone] Ferritin level (02/24/2017 1:15 PM ESE TEACHER) Ferritin level 17 10 - 154 ng/mL [employer] [place] Specimen Blood Narrative Performed At FASTING:NO [facility] FASTING: NO Resulting Agency Comment Performing Organization Information: Site ID: RGA Name: [facility] Address: [address] [place] [phone] Director: Tierra Vance MD Performing Organization Address [facility] Centercode Phone Number [employer] [place] [phone] after 01/11/2017 Insurance Payer Benefit Plan / Group Subscriber ID Type Phone Address AETNA AETNA HMO,POS,EPO, MC/EC xxxxxxxxx HMO Advance Directives Patient has advance care planning documents on file. For more information, please contact:Isidoro Gramajo[address] [place] [address]
--- OUTSIDE RECORDS SUMMARY | 2018-01-12 10:57 | XMS REPORT | Continuity of Care Document ---
:1980 Author Organization Interface Problems Problem Status Onset Classification Date Comments Source Date Reported SYNCOPE Active 08/10/[address] MIGRAINE Active 08/07/[address], [place] Discharge 03/31/19 04/03/2015 Diagnosis: 16 [place] Unspecified abdominal pain FLANK PAIN Active 03/31/19 16 [place] Discharge 08/27/19 09/02/2014 Diagnosis: 15 [place] Abdominal pain Discharge 08/27/19 09/02/2014 Diagnosis: 15 [place] Dizziness PID Active 08/27/19 [facility] [place] DIZZINESS Active 08/27/19 15 [place] WEAKNESS Active 08/27/19 15 [place] ABDOMINAL PAIN, Active 08/16/19 Condition 08/15/2014 Medical RIGHT LOWER 15 Group QUADRANT ARM SWELLING Active 08/06/19 15 [place] RADIAL VEIN Active 08/06/19 THROMBOSIS 15 [place] Discharge 04/04/19 04/06/2014 Diagnosis: Acute 15 [place] right lower quadrant pain ABDOMINAL PAIN Active 04/04/19 15 [place] MS Active 01/27/[address] SENT Active 01/09/20 11 [facility] DVT (<span Resolved Problem 08/19/2017 [facility] ID="[id number]"> Neuro, Confirmed</span>) Den Avelar,[facility], [place] Endometriosis Resolved Problem 08/19/2017 [facility] [place]velar,[facility] [place] Hypothyroidism Active Problem 08/19/2017 [facility] [place] Avelar,[facility], [place] Thyroid cancer Res[facility], [place] Meningitis Resolved Problem 08/19/2017 [facility] [place] Avelar,[facility], [place] Morbid obesity Active Problem [facility]/19[facility] Blood clot Resolved Problem 04/03/2015 [place] MIGRAINE, Active UNSPECIFIED, [place] INTRACTABLE, WITH FEM PELV INFLAM Active DIS NOS [place] AC DVT/EMBL UP Active EXT [place] SYNCOPE AND Active [facility] Medications Medication Details Route Status Patient Ordering Order Source Instructions Provider Date candesartan 4 mg 4 mg=1 tab, Active 08/15/ [facility] oral tablet PO, QAM, 1 tab 2018 Neuro every morning for 1 week, then 2 tab every morning thereafter. Decrease nortriptyline to 3 tabs at bedtime., # 60 tab, 1 Refill(s), Pharmacy: [facility]/pharmacy #[id number], for migraine headaches indomethacin 25 mg 25 mg=1 cap, [facility], BID, PRN 2018 Neuro Headache 6-10, 1 tab BID prn headache. Take with food or milk. Stop zanaflex when starting this medication., # 40 cap, 1 Refill(s), Pharmacy: [facility]/pharmacy #[id number], For migraine headaches Promethazine 25 mg=1 tab, Active 08/11[facility] [place] Hydrochloride 25 PO, Q6H, PRN 2018 Medical MG Oral Tablet Nausea & Center Vomiting, # 28 tab, 0 Refill(s), Pharmacy: [facility]/pharmacy #[id number] acetaZOLAMIDE 250 500 mg=2 tab, Active 08/11[facility] [place] mg oral tablet PO, Q12H, # 2018 Medical 120 tab, 1 Center Refill(s), [id number] Acetazolamide 500 mg, 2 tab, Inactive 08/11[facility] Route: PO, 2018 Medical Drug form: Center TAB, Q12H, Dosing Weight 117.727, kg, Priority: NOW, Start date: 08/11/17 14:23:00 CDT, Duration: 30 day, Stop date: 09/10/17 9:00:00 CDTNotes: (Same as: Diamox) Magnesium Sulfate 2 gm, 50 mL, Inactive 08/11[facility] Route: IVPB, 2018 Medical Drug form: Center INJ, ONCE, Dosing Weight 117.727, kg, Total dose=2 gm, Start date: 08/10/17 21:49:00 CDT, Stop date: 08/10/17 21:49:00 CDTNotes: WASTE: F/P - Sink; E - Municipal Trash Bin Zofran 4 mg, 2 mL, Inactive [place] Route: IV2017 Medical Drug form: Center INJ, ONCE, Dosing Weight 117.727, kg, Start date: 08/10/17 21:49:00 CDT, Stop date: 08/10/17 21:49:00 CDTNotes: (Same as: Zofran) MEDICATION WASTE Product Size: 4 mg Product Wasted: ___ mg Ketorolac 30 mg, 1 mL, Inactive [facility] Route: IV2017 Medical Drug form: Center INJ, ONCE, Dosing Weight 117.727, kg, Start date: 08/10/17 21:49:00 CDT, Stop date: 08/10/17 21:49:00 CDTNotes: (Same as:Toradol) IV bolus must be given >15 seconds. Give IM administration slowly and deeply into the muscle. Not for use > 4 days MEDICATION WASTE Product Size: 30 mg Product Wasted: ___ mg Ketorolac 30 mg, 1 mL, Inactive [facility] Route: 2017 Medical Drug form: [place] INJ, ONCE, Dosing Weight 117.727, kg, Priority: NOW, Start date: 08/10/17 14:45:00 CDT, Stop date: 08/10/17 14:45:00 CDTNotes: (Same as:Toradol) Give IM administration slowly and deeply into the muscle. Not for use > 4 days MEDICATION WASTE Product Size: 30 mg Product Wasted: ___ mg Zofran 4 mg, 2 mL, Inactive [facility] Route: 2017 Medical Drug form: Center INJ, ONCE, Dosing Weight 117.727, kg, Start date: 08/10/17 14:45:00 CDT, Stop date: 08/10/17 14:45:00 CDTNotes: (Same as: Zofran) MEDICATION WASTE Product Size: 4 mg Product Wasted: ___ mg Magnesium Sulfate 2 gm, 50 mL, Inactive [facility] Route: 2017 Medical Drug form: Center INJ, ONCE, Dosing Weight 117.727, kg, Total dose=2 gm, Start date: 08/10/17 14:44:00 CDT, Stop date: 08/10/17 14:44:00 CDTNotes: WASTE: F/P - Sink; E - Municipal Trash Bin nortriptyline 50 50 mg=1 cap, Active [facility] mg oral capsule PO, Bedtime, # 2018 Medical 30 cap, 1 Center Refill(s) levothyroxine 137 137 Active [place] mcg (0.137 mg) microgram=1 2018 Medical oral tablet tab, PO, Center Daily, 0 Refill(s) Nortriptyline 50 mg, 1 cap, No Longer [place] Route: PO, Active 2017 Medical Drug form: Center CAP, Daily, Dosing Weight 68.182, kg, Start date: 08/10/17 9:00:00 CDT, Duration: 30 day, Stop date: 09/08/17 9:00:00 CDTNotes: (Same as:Yobani Sagastumetycrystal) Premarin 1.25 mg, 1 No Longer [place] tab, Route: Active 2018 Medical PO, Drug form: Center TAB, Daily, Dosing Weight 68.182, kg, Start date: 08/10/17 9:00:00 CDT, Duration: 30 day, Stop date: 09/08/17 9:00:00 CDT Docusate 100 mg, 1 cap, No Longer [facility] Route: PO, Active 2017 Medical Drug form: Bond CAP, BID, Dosing Weight 68.182, kg, Start date: 08/10/17 9:00:00 CDT, Duration: 30 day, Stop date: 09/08/17 17:00:00 CDT Synthroid 112 microgram, No Longer [facility] 1 tab, Route: Active 2018 Medical PO, Drug form: [place] TAB, Q630AM, Dosing Weight 68.182, kg, Start [...] [place] Route: IV, 2018 Medical Drug form: [place] INJ, ONCE, Dosing Weight 117.727, kg, PRN Headache 7-10, Start date: 08/10/17 1:04:00 CDT, Pediatric DosingNotes: Concentration: 4mg/ml APAP/butalbital/ca 1 tab, Route: No Longer [place] ffeine PO, Drug Form: Active 2018 Medical TAB, Q4H, PRN Center Other -See Comment, Start date: 08/09/17 18:10:00 CDT, Duration: 30 day, Stop date: 09/08/17 18:09:00 CDT Phenergan 25 mg, 1 tab, No Longer [facility] Route: PO, Active 2017 Medical Drug form: Bond TAB, Q6H, PRN Nausea & Vomiting, Start date: 08/09/17 18:08:00 CDT, Duration: 30 day, Stop date: 09/08/17 18:07:00 CDT normal saline 0.9% 1,000 mL, Inactive [place] IV 1,000 mL Rate: 1,000 2018 Medical ml/hr, Infuse Center over: 1 hr, Route: IV, Dosing Weight 68.182 kg, Total Volume: 1,000, Start date: 08/09/17 17:27:00 CDT, Duration: 1 doses or times, Stop date: 08/09/17 18:26:00 CDT, 1.85, m2 normal saline 0.9% 1,000 mL, No Longer [facility] IV 1,000 mL Rate: 125 Active 2018 Medical ml/hr, Infuse Center over: 8 hr, Route: IV, Dosing Weight 68.182 kg, Total Volume: 1,000, Start date: 08/09/17 17:25:00 CDT, Duration: 30 day, Stop date: 09/08/17 17:24:00 CDT, 1.85, m2 Caffeine 100 MG / 1 tab, Route: Inactive [facility] Ergotamine PO, Drug Form: 2018 Medical Tartrate 1 MG Oral TAB, Dosing Center Tablet Weight 68.182, kg, Q1H, PRN, Start date: 08/09/17 17:15:00 CDT, Duration: 30 day, Stop date: 09/08/17 17:14:00 CDT, migraine Potassium Chloride 40 mEq, 2 tab, Inactive [place] Route: PO, 2018 Medical Drug form: [place] ERTAB, ONCE, Dosing Weight 68.182, kg, Start date: 08/09/17 17:07:00 CDT, Stop date: 08/09/17 17:07:00 CDT Acetaminophen 650 mg, 2 tab, No Longer [facility] Route: PO, Active 2018 Medical Drug form: Center TAB, Q4H, Dosing Weight 68.182, kg, PRN Pain 1-3/Temp > 100.4 F, Start date: 08/09/17 17:06:00 CDT, Duration: 30 day, Stop date: 09/08/17 17:05:00 CDTNotes: Do not exceed 4 gm/day. (Same as: Tylenol) Ondansetron 4 mg, 2 mL, No Longer [facility] Route: IVP, Active 2017 Medical Drug form: Bond INJ, Q6H, Dosing Weight 68.182, kg, PRN Nausea & Vomiting, Start date: 08/09/17 17:06:00 CDT, Duration: 30 day, Stop date: 09/08/17 17:05:00 CDTNotes: (Same as: Osvaldo) MEDICATION WASTE Product Size: 4 mg Product Wasted: ___ mg Acetaminophen 325 1 tab, Route: No Longer [place] MG / Hydrocodone PO, Drug Form: Active 2018 Medical Bitartrate 5 MG TAB, Dosing Center Oral Tablet Weight 68.182, kg, Q4H, PRN Pain Score 4-6, Start date: 08/09/17 17:06:00 CDT, Duration: 30 day, Stop date: 09/08/17 17:05:00 CDTNotes: (Same as: [place] 325/5) Do not exceed 4gm/day of acetaminophen. Isolyte S PH-7.4 1,000 mL, 1000 Inactive [facility] (Bolus) IV ml/hr, Route: 2018 Medical IV, Drug Form: [facility], Dosing Weight 68.182, kg, ONCE, STAT, Start date: 08/09/17 15:04:00 CDT, Stop date: 08/09/17 15:04:00 CDTNotes: (Same as: Isolyte S PH 7.4) Isolyte S PH-7.4 1,000 mL, 1000 Inactive [facility] (Bolus) IV ml/hr, Route: 2018 Medical IV, Drug Form: [facility], Dosing Weight 68.182, kg, ONCE, STAT, Start date: 08/09/17 13:38:00 CDT, Stop date: 08/09/17 13:38:00 CDTNotes: (Same as: Isolyte S PH 7.4) Iohexol 70 mL, Route: Inactive [facility] IVP, Drug 2017 Medical Form: [facility] Dosing Weight 68.182, kg, ONCALL, STAT, Start date: 08/09/17 12:43:00 CDT, Duration: 1 doses or times, Dose=2.2ml/kg, Max gmry=397mg -- "To be infused by Radiology Staff [...] Inactive Mesylate 1 MG/ML Route: IM, 2018 [facility] Injectable Drug form: Solution [DHE-45] INJ, ONCE, Dosing Weight 112.983, kg, Start date: 08/08/17 8:11:00 CDT, Stop date: 08/08/17 8:11:00 CDT, For Migraine HeadacheNotes: (Same as: Soy Enciso) Morphine 2 mg, 1 mL, Inactive Route: IVP, 2017 [facility] Drug form: SOLN, ONCE, Dosing Weight 112.983, kg, PRN Headache 6-10, Start date: 08/07/17 17:57:00 CDT Phenergan 12.5 mg, 0.5 No Longer mL, Route: Active 2017 [facility] IVPB, Q4H, Dosing Weight 112.983, kg, PRN Nausea & Vomiting, Start date: 08/07/17 16:15:00 CDT, Duration: 3 day, Stop date: 08/10/17 16:14:00 CDTNotes: Do not give IV push. (Same as: Phenergan) Bring pts. Home Bring pts. No Longer Med to pharmacy - Home Med to Active 2017 [facility] Premarin pharmacy - Premarin, 1 each, Drug form: MISC, Route: MISC, [place], 08/07/17 16:00:00 CDT, Duration: 30 day, Stop date: 09/06/17 8:00:00 CDT Solu-Medrol 250 mg, 4 mL, Inactive Route: IVP, 2017 [facility] Drug form: INJ, ONCE, Dosing Weight 112.983, kg, Priority: STAT, Start date: 08/07/17 11:42:00 CDT, Stop date: 08/07/17 11:42:00 CDTNotes: (Same as:Solu-MEDROL , A-Methapred) tizanidine 2 mg, 0.5 tab, No Longer Route: PO, Active 2017 [facility] Drug form: TAB, Daily, Dosing Weight 112.983, kg, Start date: 08/07/17 9:00:00 CDT, Duration: 30 day, Stop date: 09/05/17 9:00:00 CDTNotes: (Same As: Zanaflex) Nortriptyline 50 mg, 2 cap, No Longer Route: PO, Active 2017 [facility] Drug form: CAP, Daily, Dosing Weight 112.983, kg, Start date: 08/07/17 9:00:00 CDT, Duration: 30 day, Stop date: 09/05/17 9:00:00 CDTNotes: (Same as:Pamelor, Aventyl) Synthroid 125 microgram, No Longer 1 tab, Route: Active 2017 [facility] PO, Drug form: TAB, Q630AM, Dosing Weight 112.983, kg, Start date: 08/07/17 9:00:00 CDT, Duration: 30 day, Stop date: 09/06/17 6:30:00 CDTNotes: Take 1 hour before or 2 hours after meal; Enteral feeds may interefere with the absorption of this medication. (Same as:Levothroid) Premarin 1.25 mg, 2 No Longer tab, Route: 2017 [facility] PO, Drug form: TAB, Daily, Dosing Weight 112.983, kg, Start date: 08/07/17 9:00:00 CDT, Duration: 30 day, Stop date: 09/05/17 9:00:00 CDTNotes: (Same As: Premarin) Sumatriptan 6 mg, 0.5 mL, Inactive Route: SUB-Q, 2017 [facility] Drug form: INJ, ONCE, Dosing Weight 112.983, kg, PRN Headache 6-10, Priority: STAT, Start date: 08/07/17 8:46:00 CDTNotes: For SUBCUTANEOUS use only Tylenol 650 mg, 2 tab, No Longer Route: PO, Active 2017 [facility] Drug form: TAB, Q6H, Dosing Weight 112.983, kg, PRN Pain Score 1-3, Start date: 08/07/17 8:25:00 CDT, Duration: 30 day, Stop date: 09/06/17 8:24:00 CDTNotes: Do not exceed 4 gm/day. (Same as: Tylenol) Saline Flush 0.9% 10 ml, Route: No Longer IVP, Drug Active 2017 [facility] Form: INJ, Dosing Weight 112.983, kg, PRN, PRN Line Flush, Start date: 08/07/17 8:25:00 CDT, Duration: 30 day, Stop date: 09/06/17 8:24:00 CDTNotes: preservative free. Sodium Chloride 1,000 mL, No Longer 0.9% IV 1,000 mL Rate: 125 Active 2017 [facility] ml/hr, Infuse over: 8 hr, Route: IV, Dosing Weight 112.983 kg, Total Volume: 1,000, Start date: 08/07/17 8:25:00 CDT, Duration: 30 day, Stop date: 09/06/17 8:24:00 CDT, 2.4, m2 Ondansetron 4 mg, 2 mL, No Longer Route: IVP, Active 2017 [facility] Drug form: INJ, Q8H, Dosing Weight 112.983, kg, PRN Nausea & Vomiting, Start date: 08/07/17 8:25:00 CDT, Duration: 30 day, Stop date: 09/06/17 8:24:00 CDTNotes: (Same as: Zofran) MEDICATION WASTE Product Size: 4 mg Product Wasted: ___ mg Sumatriptan 50 mg, Route: Inactive PO, Drug form: 2017 [facility] TAB, ONCE, Dosing Weight 112.983, kg, PRN Headache 4-6, Start date: 08/07/17 8:24:00 CDT Ondansetron 4 mg, Route: Inactive IVP, Drug 2017 [facility] form: INJ, Q8H, Dosing Weight 112.983, kg, PRN Nausea, Start date: 08/07/17 8:24:00 CDT, Duration: 30 day, Stop date: 09/06/17 8:23:00 CDT Morphine 4 mg, 1 mL, Inactive Route: IVP, 2017 [facility] Drug form: SOLN, ONCE, Dosing Weight 112.983, kg, PRN Pain Score 6-10, Start date: 08/07/17 7:14:00 CDTNotes: (Same as:MORPhine Sulfate) Synthroid PO, Daily, 0 No Longer Refill(s) Active 2017 [facility] Nortriptyline 50 mg, PO, No Longer Daily, 0 2017 [facility] Refill(s) Estrogens, 1.25 mg=1 tab, On Hold Conjugated (GROUP HOME) PO, Daily, 0 2017 [facility] 1.25 MG Oral Refill(s) Tablet [Premarin] tizanidine 4 mg, PO, BID, No Longer 0 Refill(s) Active 2017 [facility] Zofran 4 mg, 1 tab, No Longer Route: PO, Active 2017 [facility] Drug form: TAB, Q4H, Dosing Weight 112.983, kg, PRN as needed for nausea/vomitin g, Start date: 08/07/17 6:44:00 CDT, Stop date: 09/06/17 6:43:00 CDTNotes: (Same as: Zofran) Zofran 4 mg, 2 mL, Inactive Route: IVP, 2017 [facility] Drug form: INJ, ONCE, Dosing Weight 110.455, kg, Priority: STAT, Start date: 08/06/17 23:14:00 CDT, Stop date: 08/06/17 23:14:00 CDTNotes: (Same as: Zofran) MEDICATION WASTE Product Size: 4 mg Product Wasted: ___ mg Magnesium Sulfate 2 gm, 4 mL, Inactive Route: IV, 2017 [facility] ONCE, Dosing Weight 110.455, kg, Priority: STAT, Start date: 08/06/17 22:04:00 CDT, Stop date: 08/06/17 22:04:00 CDTNotes: (Same as: MgSO4) WASTE: F/P - Sink; E - Municipal Trash Bin MEDICATION WASTE Product Size: 1000 mg Product Wasted: ___ mg Phenergan 12.5 mg, Inactive Route: IVPB, 2017 [facility] ONCE, Dosing Weight 110.455, kg, Priority: STAT, Start date: 08/06/17 22:04:00 CDT, Stop date: 08/06/17 22:04:00 CDT Divalproex Sodium 500 mg, 2 tab, Inactive 500 MG Enteric Route: PO, 2017 [facility] Coated Tablet Drug form: ECTAB, ONCE, Dosing Weight 110.455, kg, Start date: 08/06/17 22:03:00 CDT, Stop date: 08/06/17 22:03:00 CDT, Delayed Release TabletNotes: (Same as: Depakote Delayed Release) Do not confuse with the extended-relea se tablet. Delayed absorption, enteric coated tablet. Do not crush NS (Bolus) IV 1,000 mL, Inactive 1,000 ml/hr, 2017 [facility] Infuse Over: 1 hr, Route: IV, 1,000, Drug form: INJ, ONCE, Priority: STAT, Dosing Weight 110.455 kg, Start date: 08/06/17 19:59:00 CDT, Stop date: 08/06/17 19:59:00 CDT Ketorolac 30 mg, 1 mL, Inactive Route: IVP, 2017 [facility] Drug form: INJ, ONCE, Dosing Weight 110.455, kg, Priority: STAT, Start date: 08/06/17 19:59:00 CDT, Stop date: 08/06/17 19:59:00 CDTNotes: (Same as:Toradol) IV bolus must be given >15 seconds. Give IM administration slowly and deeply into the muscle. Not for use > 4 days MEDICATION WASTE Product Size: 30 mg Product Wasted: ___ mg Compazine 10 mg, 2 mL, Inactive Route: IV, 2017 [facility] Drug form: INJ, ONCE, Dosing Weight 110.455, kg, Start date: 08/06/17 19:59:00 CDT, Stop date: 08/06/17 19:59:00 CDTNotes: (Same as: Compazine) Benadryl 25 mg, 0.5 mL, Inactive Route: IVP, 2017 [facility] Drug form: INJ, ONCE, Dosing Weight 110.455, kg, Priority: STAT, Start date: 08/06/17 19:59:00 CDT, Stop date: 08/06/17 19:59:00 CDTNotes: (Same as: Benadryl) Zofran 4 mg, 2 mL, Inactive Route: IVP, 2018 [facility] Drug form: INJ, ONCE, Dosing Weight 110.455, kg, Priority: STAT, Start date: 08/06/17 14:21:00 CDT, Stop date: 08/06/17 14:21:00 CDTNotes: (Same as: Zofran) MEDICATION WASTE Product Size: 4 mg Product Wasted: ___ mg Dexamethasone 10 mg, 2.5 mL, Inactive Route: IVP2017 [facility] Drug form: INJ, ONCE, Dosing Weight 110.455, kg, Priority: STAT, Start date: 08/06/17 14:21:00 CDT, Stop date: 08/06/17 14:21:00 CDT Benadryl 25 mg, 0.5 mL, Inactive Route: IVP2017 [facility] Drug form: INJ, ONCE, Dosing Weight 110.455, kg, Priority: STAT, Start date: 08/06/17 14:21:00 CDT, Stop date: 08/06/17 14:21:00 CDTNotes: (Same as: Benadryl) Ketorolac 30 mg, 1 mL, Inactive Route: IV2017 [facility] Drug form: INJ, ONCE, Dosing Weight 110.455, [...] Inactive IV 1,000 mL Rate: 1,000 2017 [place] ml/hr, Infuse over: 1 hr, Route: IV, [...] stop, # 20 tab, 0 Refill(s), Pharmacy: [facility]/pharmacy #[id number] nortriptyline 10 See Active mg oral capsule Instructions, 2018 [facility] after stopping Zanaflex 1 cap PO PM x 1 wk, then 2 cap PM x 1 wk, then 3 cap PM x 1 wk, then 4 cap PM x 1 wk, then 5 cap PO thereafter, # 150 cap, 2 Refill(s), Pharmacy: [facility]/pharmacy #[id number] tizanidine 4 MG See Inactive Oral Tablet Instructions, 2018 Neuro [Zanaflex] 0.5 tab PO bedtime x 2 days, then 1 tab PO bedtime x 10 dyas, then stop, # 15 tab, 0 Refill(s), Pharmacy: [facility]/pharmacy #[id number] Ibuprofen 0 Refill(s) Active 2017 Neuro Tylenol PO, 0 Active Refill(s) 2017 [facility] Promethazine 25 mg=1 tab, Active Hydrochloride 25 PO, Q6H, PRN 2015 [place] [facility] Oral Tablet Nausea, X 4 [Phenergan] day, # 30 tab, 0 Refill(s) Acetaminophen 325 1-2 tab, PO, Active MG / Hydrocodone Q4-6H, PRN 2016 [facility] Bitartrate 10 MG Pain, X 5 day, Oral Tablet [[place] # 30 tab, 0 10/325] Refill(s) Acetaminophen 325 1 tab, Route: Inactive MG / Hydrocodone PO, Drug Form: 2015 [facility] Bitartrate 10 MG TAB, Dosing Oral Tablet [[place] Weight 97.727, 10/325] kg, ONCE, STAT, Start date: 03/31/15 13:36:00, Stop date: 03/31/15 13:36:00 Phenergan 25 mg, Route: Inactive IVPB, ONCE, 2015 [facility] Dosing Weight 97.727, kg, Priority: STAT, Start date: 03/31/15 12:31:00, Stop date: 03/31/15 12:31:00 Morphine 4 mg, Route: Inactive IVP, Drug 2015 [facility] form: INJ, ONCE, Dosing Weight 97.727, kg, Priority: STAT, Start date: 03/31/15 12:31:00, Stop date: 03/31/15 12:31:00 Zofran 4 mg, Route: Inactive IVP, Drug 2015 [facility] form: INJ, ONCE, Dosing Weight 97.727, kg, Priority: STAT, Start date: 03/31/15 11:46:00, Stop date: 03/31/15 11:46:00 Morphine 4 mg, Route: Inactive IVP, Drug 2015 [facility] form: INJ, ONCE, Dosing Weight 97.727, kg, Priority: STAT, Start date: 03/31/15 11:46:00, Stop date: 03/31/15 11:46:00 Acetaminophen 325 1 tab, PO, Active MG / Hydrocodone TID, PRN Pain, 2014 [facility] Bitartrate 10 MG # 30 tab, 0 Oral Tablet [[place] Refill(s), 10/325] given to patient meclizine 25 mg 25 mg=1 tab, Active oral tablet PO, TID, PRN 2014 [facility] Other-See Comments, X 10 day, # 30 tab, 0 Refill(s) Doxycycline 100 MG 100 mg=1 cap, Active Oral Capsule PO, Q12H, X 14 2014 [facility] day, # 28 cap, 0 Refill(s) rivaroxaban 20 MG 20 mg=1 tab, Active Oral Tablet PO, QPM, # 30 2014 [Xarelto] tab, 3 Refill(s) ketOROLAC 30 mg/mL 30 mg, 1 mL, Inactive injectable Route: IV, 2014 [facility] solution Drug form: INJ, Q8H, Dosing Weight [...] No Longer mL, Route: IV, Active 2014 [facility] Drug form: INJ, Q6H, Dosing Weight 86, kg, PRN Pain Score 4-6, Start date: 08/29/14 18:27:00, Duration: 2 day, Stop date: 08/31/14 18:26:00Notes: Infuse over 15 minutes Do not exceed 4gm/day of acetaminophen MEDICATION WASTE Product Size: 1000 mg Product Wasted: ___ mg Morphine 2 mg, 1 mL, No Longer Route: IV, Active 2014 [facility] Drug form: INJ, Q2H, Dosing Weight 86, kg, PRN Pain Score 4-6, Start date: 08/29/14 9:49:00, Duration: 30 day, Stop date: 09/28/14 9:48:00Notes: (Same as:MORPhine Sulfate) Rocephin 250 mg, Route: Inactive IM, Drug form: 2014 [facility] PDR/INJ, ONCE, Dosing Weight 86, kg, Start date: 08/28/14 13:37:00, Stop date: 08/28/14 13:37:00Notes: (Same As: Rocephin) Zithromax 250 mg 500 mg, 2 tab, Inactive oral tablet Route: PO, 2014 [facility] Drug form: TAB, ONCE, Dosing Weight 86, [...] mL, No Longer Route: IV, Active 2014 [facility] Drug form: INJ, Q4H, Dosing Weight 86, kg, PRN Pain Score 4-6, Start date: 08/27/14 17:29:00, Duration: 30 day, Stop date: 09/26/14 17:28:00Notes: (Same as:MORPhine Sulfate) Tylenol 650 mg, 2 tab, No Longer Route: PO, Active 2014 [facility] Drug form: TAB, Q6H, Dosing Weight 86, [...] mg, 0.5 mL, Inactive Route: IV, 2014 [facility] Drug form: INJ, ONCE, Dosing Weight 86, kg, PRN Other -See Comment, Start date: 08/27/14 11:24:00Notes: (Same as: Ativan) Synthroid 112 microgram, No Longer 1 tab, Route: Active 2014 [facility] PO, Drug form: TAB, Daily, Dosing Weight 88.636, kg, Start date: 08/27/14 6:30:00, Duration: 30 day, Stop date: 09/25/14 6:30:00Notes: Take 1 hour before or 2 hours after meal; Enteral feeds may interefere with the absorption of this medication.(Sa me as:Levothroid) rivaroxaban 15 mg, 1 tab, No Longer Route: PO, Active 2014 [facility] Drug form: TAB, C10B-18, Dosing Weight 88.636, kg, Start date: 08/27/14 6:00:00, Duration: 30 day, Stop date: 09/25/14 18:00:00Notes: (Same as: Xarelto) Administer with food Meclizine 25 mg, 1 tab, No Longer Route: PO, Active 2014 [facility] Drug form: TAB, TID, Dosing Weight 88.636, kg, PRN Dizziness, Start date: 08/26/14 20:59:00, Duration: 30 day, Stop date: 09/25/14 20:58:00Notes: (Same as: Antivert) Zofran 4 mg, Route: Inactive IVP, Drug 2014 [facility] form: INJ, ONCE, Dosing Weight 88.636, kg, Start date: 08/26/14 20:17:00, Stop date: 08/26/14 20:17:00 Meclizine 25 mg, Route: Inactive PO, ONCE, 2014 [facility] Dosing Weight 88.636, kg, Start date: 08/26/14 20:17:00, Stop date: 08/26/14 20:17:00 Ondansetron 4 mg, 2 mL, No Longer Route: IVP, Active 2014 [facility] Drug form: INJ, Q6H, Dosing Weight 88.636, kg, PRN Nausea & Vomiting, Start date: 08/26/14 19:56:00, Duration: 30 day, Stop date: 09/25/14 19:55:00Notes: (Same as: Zofran) MEDICATION WASTE Product Size: 4 mg Product Wasted: ___ mg Docusate 100 mg, 1 cap, No Longer Route: PO, Active 2014 [facility] Drug form: CAP, BID, Dosing Weight 88.636, kg, PRN Constipation, Start date: 08/26/14 19:56:00, Duration: 30 day, Stop date: 09/25/14 19:55:00Notes: (Same as: Colace) (Do Not Crush) meclizine 25 mg 25 mg=1 tab, No Longer oral tablet PO, TID, PRN Active 2014 [facility] Other-See Comments, X 10 day, # 30 tab, 0 Refill(s) Ativan 1 mg, Route: Inactive IVP, Drug 2014 [facility] form: INJ, ONCE, Dosing Weight 88.636, kg, Priority: STAT, Start date: 08/26/14 17:00:00, Stop date: 08/26/14 17:00:00 Ketorolac 30 mg, Route: Inactive IVP, Drug 2014 [facility] form: INJ, ONCE, Dosing Weight 88.636, kg, Priority: STAT, Start date: 08/26/14 17:00:00, Stop date: 08/26/14 17:00:00 Zofran 4 mg, Route: Inactive IVP, Drug 2014 [facility] form: INJ, ONCE, Dosing Weight 88.636, kg, Priority: STAT, Start date: 08/26/14 15:21:00, Stop date: 08/26/14 15:21:00 Morphine 4 mg, Route: Inactive IVP, Drug 2014 [facility] form: INJ, ONCE, Dosing Weight 88.636, kg, Priority: STAT, Start date: 08/26/14 15:20:00, Stop date: 08/26/14 15:20:00 Meclizine 25 mg, 1 tab, Inactive Route: PO, 2014 [facility] Drug form: TAB, ONCE, Dosing Weight 88.636, kg, Priority: STAT, Start date: 08/26/14 14:28:00, Stop date: 08/26/14 14:28:00Notes: (Same as: Antivert) Sodium Chloride 1,000 mL, 1000 Inactive 0.154 MEQ/ML ml/hr, Infuse 2014 [facility] Injectable Over: 1 hr, Solution Route: IV, 1,000, Drug form: INJ, ONCE, Priority: STAT, Dosing Weight 88.636 kg, Start date: 08/26/14 14:28:00, Duration: 1 doses or times, Stop date: 08/26/14 14:28:00 Saline Flush 0.9% 10 mL, Route: No Longer IVP, Drug Active 2014 [facility] Form: INJ, Dosing Weight 88.636, kg, PRN, PRN Line Flush, Start date: 08/26/14 14:28:00, Duration: 30 day, Stop date: 09/25/14 14:27:00Notes: (Same as: BD Posiflush) SYNTHROID 112 MCG Active Medical TABS 2014 [facility] XARELTO TABS Active Medical 2014 [facility] rivaroxaban 15 mg 15 mg=1 tab, Active oral tablet PO, [id number], # 2014 30 tab, 1 Refill(s) Xarelto 15 mg, 1 tab, No Longer Route: PO, Active 2014 Drug form: TAB, [id number], Dosing Weight 85.909, kg, Start date: 08/09/14 [...] Bitartrate 5 MG TAB, Dosing Oral Tablet [[place] Weight 85.909, 5/325] kg, Q4H, PRN Pain, Start date: 08/07/14 13:31:00, Duration: 30 day, Stop date: 09/06/14 13:30:00 Ondansetron 4 mg, Route: Inactive IVP, ONCE, 2014 [facility] Dosing Weight 85.909, kg, PRN Nausea & Vomiting, Start date: 08/07/14 13:31:00 Naloxone 0.04 mg, Inactive Route: IVP, 2014 [facility] Q2MIN, Dosing Weight 85.909, kg, PRN Narcotic Reversal, Start date: 08/07/14 13:31:00, Duration: 8 doses or times, Stop date: Limited # of times Flumazenil 0.2 mg, Route: Inactive IVP, PRN, 2014 [facility] Dosing Weight 85.909, kg, PRN Benzodiazepine Reversal, Initial dose, Start date: 08/07/14 13:31:00, Duration: 30 day, Stop date: 09/06/14 13:30:00 Meperidine 12.5 mg, Inactive Route: IVP, 2014 [facility] Q30Min, Dosing Weight 85.909, kg, PRN Other -See Comment, For shivering, Start date: 08/07/14 13:31:00, Duration: 2 doses or times, Stop date: Limited # of times Acetaminophen 1,000 mg, Inactive Route: IVPB, 2014 [facility] Drug form: INJ, ONCE, Dosing Weight 85.909, kg, PRN Pain Score 1-3, Start date: 08/07/14 13:31:00, Duration: 1 doses or times, Stop date: Limited # of times Fentanyl 25 microgram, Inactive Route: IVP, 2014 [facility] Q5Min, Dosing Weight 85.909, kg, PRN Pain Score 4-6, Start date: 08/07/14 13:31:00, Duration: 4 doses or times, Stop date: Limited # of times Hydromorphone 0.5 mg, Route: Inactive IVP, Q5Min, 2014 [facility] Dosing Weight 85.909, kg, PRN Pain Score 7-10, Start date: 08/07/14 13:31:00, Duration: 4 doses or times, Stop date: Limited # of times Sodium Chloride 1,000 mL, No Longer 0.154 MEQ/ML Rate: 125 Active 2014 [facility] Injectable ml/hr, Infuse Solution over: 8 hr, Route: IV, Dosing Weight 85.909 kg, Total Volume: 1,000, Start date: 08/07/14 13:13:00, Duration: 30 day, Stop date: 09/06/14 13:12:00 Saline Flush 0.9% 10 ml, Route: No Longer IVP, Drug Active 2014 [facility] Form: INJ, Dosing Weight 85.909, kg, PRN, PRN Line Flush, Start date: 08/07/14 13:13:00, Duration: 30 day, Stop date: 09/06/14 13:12:00Notes: (Same as: BD Posiflush) Ondansetron 4 mg, 2 mL, No Longer Route: IVP, [facility] 2014 [facility] Drug form: INJ, Q6H, Dosing Weight 85.909, kg, PRN Nausea & Vomiting, Start date: 08/07/14 13:13:00, Duration: 30 day, Stop date: 09/06/14 13:12:00Notes: (Same as: Osvaldo) MEDICATION WASTE Product Size: 4 mg Product Wasted: ___ mg Morphine 2 mg, 1 mL, No Longer Route: IVP, [facility] 2014 [facility] Drug form: INJ, Q3H, Dosing Weight 85.909, kg, PRN Pain Score 4-6, Start date: 08/07/14 13:13:00, Duration: 30 day, Stop date: 09/06/14 13:12:00Notes: (Same as:MORPhine Sulfate) Acetaminophen 325 1 tab, Route: No Longer MG / Hydrocodone PO, Drug Form: 2014 [facility] Bitartrate 5 MG TAB, Dosing Oral Tablet Weight 85.909, kg, Q4H, PRN Pain Score 1-3, Start date: 08/07/14 13:13:00, Duration: 30 day, Stop date: 09/06/14 13:12:00Notes: (Same as: [place] 325/5) Do not exceed 4gm/day of acetaminophen. Morphine 2 mg, 1 mL, Inactive Route: IV, 2014 Drug form: INJ, Q2H, Dosing Weight 85.909, kg, PRN Pain Score 1-5, Start date: 08/07/14 9:49:00, Duration: 30 day, Stop date: 09/06/14 9:48:00Notes: (Same as:MORPhine Sulfate) normal saline 0.9% 1,000 mL, Inactive IV 1,000 mL Rate: 100 2014 [facility] ml/hr, Infuse over: 10 hr, Route: IV, Dosing Weight 85.909 kg, Total Volume: 1,000, Start date: 08/07/14 9:49:00, Duration: 30 day, Stop date: 09/06/14 9:48:00 Zofran 4 mg, 2 mL, No Longer Route: IV, Active 2014 [facility] Drug form: INJ, Q4H, Dosing Weight 85.909, kg, PRN Nausea, Start date: 08/06/14 23:35:00, Duration: 30 day, Stop date: 09/05/14 23:34:00Notes: (Same as: Zofran) MEDICATION WASTE Product Size: 4 mg Product Wasted: ___ mg Synthroid 112 microgram, No Longer 1 tab, Route: Active 2014 [facility] PO, Drug form: TAB, [id number], Dosing Weight 85.909, kg, Start date: 08/06/14 6:30:00, Duration: 30 day, Stop date: 09/04/14 6:30:00Notes: Take 1 hour before or 2 hours after meal; Enteral feeds may interefere with the absorption of this medication.(Sa sd as:Levothroid) Lovenox 80 mg, 0.8 mL, No Longer Route: SUB-Q, Active 2014 [facility] Drug form: INJ, [id number], Dosing Weight 85.909, kg, Start date: 08/06/14 4:00:00, Duration: 30 day, Stop date: 09/04/14 13:00:00Notes: Nurse to ensure documentation of patient education per anticoagulatio n policy. (Same as: Lovenox) Ondansetron 4 mg, 2 mL, No Longer Route: IVP, Active 2014 [facility] Drug form: INJ, Q8H, Dosing Weight 85.909, kg, PRN Nausea & Vomiting, Start date: 08/05/14 17:46:00, Duration: 30 day, Stop date: 09/04/14 17:45:00Notes: (Same as: Zofran) MEDICATION WASTE Product Size: 4 mg Product Wasted: ___ mg Docusate 100 mg, 1 cap, No Longer Route: PO, Active 2014 [facility] Drug form: CAP, BID, Dosing Weight 85.909, kg, PRN Constipation, Start date: 08/05/14 17:46:00, Duration: 30 day, Stop date: 09/04/14 17:45:00Notes: (Same as: Colace) (Do Not Crush) Acetaminophen 325 1 tab, Route: No Longer MG / Hydrocodone PO, Drug Form: Active 2014 [facility] Bitartrate 5 MG TAB, Dosing Oral Tablet Weight 85.909, kg, Q4H, PRN Pain Score 1-3, Start date: 08/05/14 17:46:00, Duration: 30 day, Stop date: 09/04/14 17:45:00Notes: (Same as: [place] 325/5) Do not exceed 4gm/day of acetaminophen. Levothyroxine 112 Active Sodium 0.112 MG microgram=1 2014 [facility] Oral Tablet tab, PO, [Synthroid] Daily, # 30 tab, 0 Refill(s) Lovenox 80 mg, 0.8 mL, Inactive Route: SUB-Q, 2014 [facility] Drug form: INJ, ONCE, Dosing Weight 85.909, kg, Priority: STAT, Start date: 08/05/14 15:00:00, Stop date: 08/05/14 15:00:00Notes: Nurse to ensure documentation of patient education per anticoagulatio n policy. (Same as: Lovenox) Prednisone 60 mg, Route: Inactive PO, Drug form: 2014 [facility] TAB, ONCE, Dosing Weight 85.909, kg, Priority: STAT, Start date: 08/05/14 13:15:00, Stop date: 08/05/14 13:15:00 Dicyclomine 20 mg=1 tab, Active Hydrochloride 20 PO, QID, # 28 2014 [facility] MG Oral Tablet tab, 0 [Bentyl] Refill(s) Ondansetron 4 MG 4 mg=1 tab, Active Disintegrating PO, BID, 2014 [facility] Tablet [Zofran] Nausea and Vomiting, Dissolve tab under tongue, # 10 tab, 0 Refill(s)Speci al Instructions: Dissolve tab under tongue tramadol 50 mg=1 tab, Active hydrochloride 50 PO, Q4H, # 24 2014 [facility] Oral Tablet tab, 0 Refill(s) Ketorolac 30 mg, Route: Inactive IVP, Drug 2014 [facility] form: INJ, ONCE, Dosing Weight 84.091, kg, Priority: STAT, Start date: 04/04/14 15:08:00, Stop date: 04/04/14 15:08:00 Morphine 4 mg, Route: Inactive IVP, Drug 2014 [facility] form: INJ, ONCE, Dosing Weight 84.091, kg, Priority: STAT, Start date: 04/04/14 14:26:00, Stop date: 04/04/14 14:26:00 Morphine 4 mg, Route: Inactive IVP, Drug 2014 [facility] form: INJ, ONCE, Dosing Weight 84.091, kg, Priority: STAT, Start date: 04/04/14 12:22:00, Stop date: 04/04/14 12:22:00 normal saline 0.9% 1,000 mL, Inactive IV 1000 mL Rate: 1,000 2014 [facility] ml/hr, Infuse over: 1 hr, Route: IV, Dosing Weight 84.091 kg, Total Volume: 1,000, Priority: STAT, Start date: 04/04/14 12:22:00, Duration: 1 doses or times, Stop date: 04/04/14 13:21:00 Zofran 4 mg, Route: Inactive IVP, Drug 2014 [facility] form: INJ, ONCE, Dosing Weight 84.091, kg, [...] Active drugs allergy [place] Immunizations Immunization Date Site Status Last Comments Source Given Updated pneumococcal Right completed Nking Mischer 23-valent vaccine 5 deltoid Neuro, [place],[facility], [facility] Results Order Name Results Value Reference Date Interpretation Comments Source Range BODY WBC CSF 0 /mm3 0 - 53 08/11 [facility] BODY Supernat CSF Colorless Colorless 08/11 [facility] FLUIDS [facility] (08/11/17 11:36 AM) Center BODY RBC CSF 0 /mm3 0 - 03 08/11 [facility]2017 [facility] BODY Clarity CSF Clear Clear 08/11 [facility] FLUIDS [facility] (08/11/17 11:36 AM) Center BODY Color CSF Colorless Colorless 08/11 [facility] /2017 [facility] (08/11/17 11:36 AM) [place] BODY Tube Num CSF 3 08/11 [facility] BODY Glucose CSF 74 mg/dL 45 - 80 08/[address] BODY Protein CSF 20 mg/dL 15 - 45 08/[address] IMMUNOLOGY [place] CSF <1 unit/L <=3 unit/L 08/11 [facility] IMMUNOLOGY VDRL Scr CSF Non Reactive Non 08/11 [facility] Reactive [facility] (08/11/17 11:36 AM) Center Gram Stain Gram Stain 08/11 [facility] Report Performed Medical By: Center [facility] Culture: CSF 48 Hour 08/11 [facility]/Gram Stain Report - Medical No Growth, [facility] Spine Spine lumbar EXAM: LUMBAR PUNCTURE, FLUOROSCOPIC GUIDANCE 08/11 - [facility] lumbar puncture w - Medical puncture w fluoro DX This report was dictated by a Surgical Scheduler /Fellow. I have personally reviewed the images [...] eGFR of 60-89 may be normal in [facility] mL/min/1. some populations, particularly the elderly, for whom the CKD-EPI formula has not been extensively validated. Use of the eGFR is not recommended in the following populations: [address] Individuals with unstable creatinine concentrations, including [...] Lvl 164 mg/dL 70 - 99 08/11 [facility] CHEM PANEL BUN 11 mg/dL 7 - 22 08/11 [facility]2017 [facility] CHEM PANEL Potassium 3.5 meq/L 3.5 - 5.1 08/11 [facility] CHEM PANEL Creatinine 0.92 mg/dL 0.50 - 08/11 [facility] Lvl 1.40 /2018 Medical Center CHEM PANEL Chloride Lvl 105 meq/L 95 - 109 08/11 [place] /2018 [facility] Center CHEM PANEL AGAP 15.5 meq/L 10.0 - 07 [place] 20.0 /2017 [facility] Center CHEM PANEL Calcium Lvl 8.0 mg/dL 8.5 - 10.5 08/11 [place] /2018 [facility] CHEM PANEL Sodium Lvl 141 meq/L 135 - 145 08/11 [place] /2018 [facility] Center CHEM PANEL CO2 24 meq/L 24 - 32 08/11 [place] /2018 [facility] CARDIAC CK MB 1.0 ng/mL 0.5 - 3.6 08/10 [place] [facility] /2018 [facility] Center CARDIAC CK MB Index 0.7 0.0 - 2.5 08/10 [place] [facility] /2018 [facility] CARDIAC Troponin-T null 0.000 - 08/10 [place] [facility] 0.100 /2018 [facility] CARDIAC Troponin-I null 0.00 - 08/10 [place] [facility] 0.40 /2018 [facility] CARDIAC Total CK 137 unit/L 08/10 [place] [facility] /2018 [facility] CARDIAC Troponin-T null 0.000 - 08/10 [place] [facility] 0.100 /2018 [facility] CARDIAC Troponin-I null 0.00 - 08/10 [place] [facility] 0.40 /2018 [facility] CARDIAC CK MB Index 0.9 0.0 - 2.5 08/10 [place] [facility] /2018 [facility] CARDIAC CK MB 1.4 ng/mL 0.5 - 3.6 08/10 [place] [facility] /2018 [facility] CARDIAC Total CK 157 unit/L - 08/10 [place] [facility] /2018 [facility] CARDIAC CK MB Index 1.3 0.0 - 2.5 08/10 [place] [facility] /2018 [facility] CARDIAC CK MB 2.3 ng/mL 0.5 - 3.6 08/10 [place] [facility] /2018 [facility] CARDIAC Total CK 176 unit/L - 08/10 [place] [facility] /2018 [facility] CARDIAC Troponin-T null 0.000 - 08/10 [place] [facility] 0.100 /2018 [facility] CARDIAC Troponin-I null 0.00 - 08/10 [place] [facility] 0.40 /2018 [facility] CHEM PANEL Phosphorus 2.9 mg/dL 2.5 - 4.5 08/10 [place] /2018 [facility] CHEM PANEL Magnesium 1.9 mg/dL 1.8 - 2.4 08/10 [facility] [place] Lvl /2018 [facility] Center Brain w/wo Brain w/wo MRA OF THE BRAIN WITH AND WITHOUT CONTRAST 08/09 - [facility] contrast contrast MRA /2018 - Medical MRA [...] ORBITS WITH AND WITHOUT CONTRAST 08/09 - [facility] ts w/wo w/wo /2018 - Medical contrast [...] Bacteria Few /HPF None Seen 08/09 [facility] /HPF /[address] [place] [address] URINE AND UA RBC None Seen 0 - 2 08/[address] (08/09/17 2:28 PM) [place] URINE AND UA Sq Epi Occasional Few /LPF 08/09 [facility] /LPF /[address] [place] [address] URINE AND UA WBC None Seen None Seen 08/[address] (08/09/17 2:28 PM) [place] URINE AND UA Mucus None Seen None Seen 08/[address] (08/09/17 2:28 PM) [place] URINE AND UA Turbidity Clear Clear 08/[address] (08/09/17 2:28 PM) [place] URINE AND UA Blood Negative Negative 08/[address] (08/09/17 2:28 PM) [place] URINE AND UA Bili Negative Negative 08/[address] *NA* [place] (08/09/17 2:28 PM) URINE AND UA Leuk Est Negative Negative 08/[address] (08/09/17 2:28 PM) [place] URINE AND UA Nitrite Negative Negative 08/[address] (08/09/17 2:28 PM) [place] URINE AND UA 0.2 EU/dL 0.1 - 1.0 08/09 [facility] Urobilinogen /[address] [place] [address] URINE AND UA Color Yellow Yellow 08/09 [facility] Medical *NA* [place] (08/09/17 2:28 PM) URINE AND UA Spec Grav <=1.005 <=1.030 08/09 [facility]
*NA*< /2017 Medical br/>( Center 8 2:28 PM) URINE AND UA Ketones Negative Negative 08/09 [facility] *NA* [place] (08/09/17 2:28 PM) URINE AND UA pH 6.0 5.0 - 8.0 08/[address] URINE AND UA Protein Negative Negative 08/09 [facility] (08/09/17 2:28 PM) [place] URINE AND UA Glucose Negative Negative 08/09 [facility] (08/09/17 2:28 PM) [place] BLOOD BANK ABO/Rh O POS 08/09 [facility] RESULTS [facility] BLOOD BANK Antibody Negative 08/09 [facility] RESULTS Scr [facility] (08/09/17 1:30 PM) [facility] CHEM PANEL eGFR 98 08/09 Result Comment: The eGFR is calculated using the CKD-EPI formula. In most young, healthy individuals the eGFR will be >90 mL/ min/1.73m2. The eGFR declines with age. An eGFR of 60-89 may be normal in [facility] mL/min/1. some populations, particularly the elderly, for whom the CKD-EPI formula has not been extensively validated. Use of the eGFR is not recommended in the following populations: [address] Individuals with unstable creatinine concentrations, including [...] CO2 26 meq/L 24 - 32 08/09 [facility]2017 [facility] CHEM PANEL Potassium 3.3 meq/L 3.5 - 5.1 08/09 [facility] Lvl /2017 [facility] CHEM PANEL Chloride Lvl 104 meq/L 95 - 109 08/[address] CHEM PANEL Calcium Lvl 8.6 mg/dL 8.5 - 10.5 08/[address] [facility] [place] [address] CHEM PANEL Glucose Lvl 85 mg/dL 70 - 99 08/[address] CHEM PANEL BUN 12 mg/dL 7 - 22 08/[address] CHEM PANEL Creatinine 0.78 mg/dL 0.50 - 08/09 [facility] Lvl 1.40 [facility] CHEM PANEL Sodium Lvl 138 meq/L 135 - 145 08/[address] CHEM PANEL AGAP 11.3 meq/L 10.0 - 08/09 20.0 [facility] ENDOCRINOL S Preg Negative Negative 08/09 [facility] OGY Medical *NA* Center (08/09/17 11:58 AM) HEMATOLOGY MPV 9.2 fL 7.4 - 10.4 08/09 [facility]2017 [facility] HEMATOLOGY RBC 4.12 M/CMM 4.20 - 08/09 [facility] 5.40 [facility] HEMATOLOGY WBC 9.1 K/CMM 3.7 - 10.4 08/09 [facility] [address] [place] [address] HEMATOLOGY RDW 14.0 % 11.5 - 08/09 [facility] 14.5 [facility] HEMATOLOGY Platelet 204 K/CMM 133 - 450 08/[address] [place] [address] HEMATOLOGY MCHC 33.4 g/dL 32.0 - 08/09 [facility] 36.0 [facility] HEMATOLOGY MCH 30.0 pg 27.0 - 08/09 [facility] 31.0 [facility] HEMATOLOGY MCV 89.6 fL 80.0 - 08/09 [facility] 98.0 [facility] HEMATOLOGY Hct 36.9 % 36.0 - 08/09 48.0 [facility] HEMATOLOGY Hgb 12.3 g/dL 12.0 - 08/09 [facility] 16.0 [facility] HEMATOLOGY Basophils # 0.1 K/CMM 0.0 - 0.2 08/09 [facility] HEMATOLOGY Eosinophils 0.1 K/CMM 0.0 - 0.5 08/09 [facility] # /2017 [facility] HEMATOLOGY Monocytes # 0.5 K/CMM 0.0 - 0.8 08/[address] HEMATOLOGY Monocytes 6.0 % 2.0 - 12.0 08/09 [facility] [address] [place] [address] HEMATOLOGY Lymphocytes 3.1 K/CMM 1.0 - 5.5 08/09 [facility] # /2017 [facility] HEMATOLOGY Segs-Bands # 5.3 K/CMM 1.5 - 8.1 08/09 [facility] HEMATOLOGY Eosinophils 1.0 % 0.0 - 4.0 08/09 [facility] HEMATOLOGY Basophils 0.6 % 0.0 - 1.0 08/09 [facility] HEMATOLOGY Lymphocytes 33.8 % 20.0 - 08/09 40.0 [facility] HEMATOLOGY Segs 58.6 % 45.0 - 08/09 [place] 75.0 [facility] HEMATOLOGY PTT 24.1 s 22.9 - 08/09 [place] 35.8 /2017 [facility] HEMATOLOGY INR 0.83 0.85 - 08/09 [place] 1.17 [facility] HEMATOLOGY PT 11.4 s 12.0 - 08/09 [facility] 14.7 [facility] IMMUNOLOGY [facility] HIV 4th Negative Negative 08/09 [facility] GEN Medical *NA* Center (08/09/17 11:56 AM) Spine Spine EXAM: CT CERVICAL SPINE WITHOUT CONTRAST 08/09 - [facility] cervical cervical wo - [facility] contrast CT This report was dictated by a Surgical Scheduler/ Fellow. I have personally reviewed the images as Center contrast well as the Resident's interpretation and agree with the findings. CT DATE: 08/09/2017 12:09 PM CDT Read by: Fernando Bentley MD Resident: Fernando Bentley MD Dictated Date/time: 08/09/17 13:35 Electronically Signed by: Irwin So MD 08/09/17 14:10 FINAL REPORT INDICATION: [...] note, this foreign body was present in 2016. IMPRESSION: 1. No acute abnormality in the cervical spine. 2. Mild spondylosis of the cervical spine Brain wo Brain wo EXAM: CT HEAD WITHOUT CONTRAST 08/09 [facility] contrast contrast CT /2018 - Medical CT Center DATE: 08/09/2017 12:09 PM CDT [...] cerebri). Correlation with CSF pressure is recommended. Chest Chest EXAM: CTA CHEST WITH CONTRAST 08/09 [facility] Pulmonary Pulmonary /2017 - Medical Embolism [...] - [place] views DX views DX /2017 [facility] DATE: 08/09/2017 12:09 PM CDT Read by: [...] EXAM: XR CHEST 1 VIEW 08/09 - [facility] 1view DX DX /2017 [facility] DATE: 08/09/2017 12:08 PM CDT Read by: [...] XR LEFT HAND 3 VIEWS 08/09 - [facility] views DX - Medical This report was dictated by a Surgical Scheduler/Fellow. I have personally reviewed the images as [...] 0.1 - 1.0 08/07 [facility] Urobilinogen mg/dL [place] URINE AND UA Ketones Negative Negative 08/07 [facility] mg/dL mg/dL [place] URINE AND UA Nitrite Negative Negative 08/07 [facility] (08/06/17 7:19 PM) URINE AND UA Leuk Est Negative Negative 08/07 [facility] (08/06/17 7:19 PM) URINE AND UA Sq Epi Occasional Few /LPF 08/07 [facility] /LPF /2017 [place] URINE AND UA Bili Negative Negative 08/07 [facility] *NA* (08/06/17 7:19 PM) URINE AND UA Glucose Negative Negative 08/07 [facility] mg/dL mg/dL [facility] URINE AND UA Protein Negative Negative 08/07 [facility] mg/dL mg/dL [place] URINE AND UA Blood Negative Negative 08/07 [facility] (08/06/17 7:19 PM) URINE AND UA Color Yellow Yellow 08/07 [facility] *NA* (08/06/17 7:19 PM) URINE AND UA WBC 1 /HPF 0 - 5 08/07 [facility] URINE AND UA Bacteria Occasional None Seen 08/07 [facility] /HPF /HPF /2017 [place] URINE AND UA RBC 1 /HPF 0 - 2 08/07 [facility] URINE AND UA Mucus Few /LPF None Seen 08/07 [facility] /LPF /2017 [place] URINE AND UA Spec Grav 1.008 <=1.030 08/07 [facility] URINE AND UA Turbidity Clear Clear 08/07 [facility] (08/06/17 7:19 PM) URINE AND UA pH 6.0 5.0 - 8.0 08/07 [facility] URINE CHEM U Preg Negative Negative 08/07 [facility] (08/06/17 7:19 PM) CHEM PANEL A/G Ratio 1.0 0.7 - 1.6 08/06 [facility] CHEM PANEL B/C Ratio 8 6 - 25 08/06 [facility] CHEM PANEL Globulin 3.8 g/dL 2.7 - 4.2 08/06 [facility] CHEM PANEL AGAP 13.1 meq/L 10.0 - 08/06 [facility] 20.0 [facility] CHEM PANEL eGFR 113 08/06 Result Comment: [...] is not recommended in the following populations: [facility] 3m2 Individuals with unstable creatinine concentrations, including [...] Lvl 8.7 mg/dL 8.5 - 10.5 08/06 [facility] CHEM PANEL Total 7.5 g/dL 6.4 - 8.4 08/06 [facility] CHEM PANEL Potassium 4.1 meq/L 3.5 - 5.1 08/06 [facility] Lvl /2017 [place] CHEM PANEL Chloride Lvl 107 meq/L 95 - 109 08/06 [facility] CHEM PANEL CO2 25 meq/L 24 - 32 08/06 [facility] CHEM PANEL Sodium Lvl 141 meq/L 135 - 145 08/06 [facility] CHEM PANEL Creatinine 0.74 mg/dL 0.50 - 08/06 [facility] Lvl 1.40 [facility] CHEM PANEL BUN 6 mg/dL 7 - 22 08/06 [facility] CHEM PANEL Bili Total 0.2 mg/dL 0.2 - 1.3 08/06 [facility] CHEM PANEL Albumin Lvl 3.7 g/dL 3.5 - 5.0 08/06 [facility] CHEM PANEL ALT 25 unit/L 0 - 65 08/06 [facility] CHEM PANEL AST 16 unit/L 0 - 37 08/06 [facility] CHEM PANEL Alk Phos 83 unit/L 39 - 136 08/06 [facility] CHEM PANEL Glucose Lvl 99 mg/dL 70 - 99 08/06 [facility] HEMATOLOGY Eosinophils 0.1 K/CMM 0.0 - 0.5 08/06 [facility] HEMATOLOGY Basophils 0.5 % 0.0 - 1.0 08/06 [facility] HEMATOLOGY Segs-Bands # 3.0 K/CMM 1.5 - 8.1 08/06 [facility] HEMATOLOGY Monocytes # 0.3 K/CMM 0.0 - 0.8 08/06 [facility] HEMATOLOGY Lymphocytes 2.6 K/CMM 1.0 - 5.5 08/06 [facility] HEMATOLOGY Eosinophils 1.0 % 0.0 - 4.0 08/06 [facility] HEMATOLOGY Monocytes 4.3 % 2.0 - 12.0 08/06 [facility] HEMATOLOGY Lymphocytes 44.4 % 20.0 - 08/06 MH 40.0 [facility] HEMATOLOGY Segs 49.8 % 45.0 - 08/06 MH 75.0 [facility] HEMATOLOGY Platelet 253 K/CMM 133 - 450 08/06 [facility] HEMATOLOGY MPV 9.2 fL 7.4 - 10.4 08/06 [facility] HEMATOLOGY MCHC 33.5 g/dL 32.0 - 08/06 MH 36.0 /2017 [facility] HEMATOLOGY RDW 13.9 % 11.5 - 08/06 MH 14.5 [facility] HEMATOLOGY MCH 29.7 pg 27.0 - 08/06 MH 31.0 [facility] HEMATOLOGY MCV 88.7 fL 80.0 - 08/06 MH 98.0 [facility] HEMATOLOGY Hct 38.0 % 36.0 - 08/06 MH 48.0 [facility] HEMATOLOGY Hgb 12.7 g/dL 12.0 - 08/06 MH 16.0 [facility] HEMATOLOGY WBC 6.0 K/CMM 3.7 - 10.4 08/06 MH /2017 [facility] HEMATOLOGY RBC 4.28 M/CMM 4.20 - 08/06 MH 5.40 [facility] Brain wo Brain wo CT HEAD WITHOUT CONTRAST: 08/06 - [facility] contrast contrast CT /2017 - [place] CT HISTORY: Persistent severe migraine. Read by: [...] BM-M Carotid Carotid CAROTID ULTRASOUND 06/30 - [facility] artery artery /2017 - [place] Doppler Doppler bilat US bilat US HISTORY: - [id number], RT neck pain; Read by: Pérez Yepez [...] occlusion High, low, or Variable undetectable SL: [id number] Brain CTA Brain CTA PROCEDURE: BRAIN CTA / CT VENOGRAM 04/16 [facility] CLINICAL INDICATION: I67.1. Cerebral aneurysm. Read by: [...] 133 unit/L 12 - 191 03/31 [facility] CARDIAC BNP 4 pg/mL <=100 03/31 [facility] pg/mL /2015 [facility] CARDIAC CK MB Index null 0.0 - 2.5 03/31 [facility] CARDIAC Troponin-I null 0.00 - 03/31 MH EN[facility]YMES 0.40 /2016 [facility] CARDIAC CK MB null 0.5 - 3.6 03/31 MH [facility]ES [facility] CHEM PANEL eGFR 87 03/31 Result Comment: [...] is not recommended in the following populations: [facility] 3m2 Individuals with unstable creatinine concentrations, including [...] Lvl 106 meq/L 95 - 109 03/31 [facility] CHEM PANEL Calcium Lvl 8.4 mg/dL 8.5 - 10.5 03/31 [facility] CHEM PANEL CO2 28 meq/L 24 - 32 03/31 [facility] CHEM PANEL Potassium 3.9 meq/L 3.5 - 5.1 03/31 Lvl /2015 [facility] CHEM PANEL Sodium Lvl 139 meq/L 135 - 145 03/31 [facility] CHEM PANEL Creatinine 0.87 mg/dL 0.50 - 03/31 MH Lvl 1.40 [facility] CHEM PANEL BUN 8 mg/dL 7 - 03/31 [facility] CHEM PANEL Glucose Lvl 84 mg/dL 70 - 99 03/31 [facility] CHEM PANEL AGAP 8.9 meq/L 10.0 - 03/31 MH 20.0 [facility] HEMATOLOGY WBC 6.5 K/CMM 3.7 - 10.4 03/31 [facility] HEMATOLOGY Hgb 12.5 g/dL 12.0 - 03/31 MH 16.0 [facility] HEMATOLOGY Hct 38.7 % 36.0 - 03/31 MH 48.0 [facility] HEMATOLOGY Platelet 213 K/CMM 133 - 450 03/31 [facility] HEMATOLOGY RBC 4.36 M/CMM 4.20 - 03/31 MH 5.40 /2015 [facility] HEMATOLOGY MCV 88.7 fL 80.0 - 03/31 MH 98.0 /2015 [facility] HEMATOLOGY MCH 28.7 pg 27.0 - 03/31 MH 31.0 [facility] HEMATOLOGY MCHC 32.3 g/dL 32.0 - 03/31 MH 36.0 /2015 [facility] HEMATOLOGY MPV 9.0 fL 7.4 - 10.4 03/31 [facility] HEMATOLOGY RDW 14.7 % 11.5 - 03/31 MH 14. [facility] HEMATOLOGY Eosinophils 0.1 K/CMM 0.0 - 0.5 03/31 MH # /2016 [facility] HEMATOLOGY Segs-Bands # 3.7 K/CMM 1.5 - 8.1 03/31 [facility] HEMATOLOGY Lymphocytes 2.3 K/CMM 1.0 - 5.5 03/31 MH # /2016 [facility] HEMATOLOGY Monocytes # 0.3 K/CMM 0.0 - 0.8 03/31 [facility] HEMATOLOGY Basophils # 0.1 K/CMM 0.0 - 0.2 03/31 /2015 [facility] HEMATOLOGY Basophils 1.0 % 0.0 - 1.0 03/31 [facility] HEMATOLOGY Monocytes 4.0 % 2.0 - 12.0 03/31 [facility] HEMATOLOGY Eosinophils 1.9 % 0.0 - 4.0 03/31 [facility] HEMATOLOGY Segs 57.9 % 45.0 - 03/31 MH 75.0 /2016 [facility] HEMATOLOGY Lymphocytes 35.2 % 20.0 - 03/31 MH 40.0 /2016 [facility] HEMATOLOGY PTT 28.8 s 22.9 - 03/31 MH 35.8 /2015 [facility] HEMATOLOGY PT 12.8 s 12.0 - 03/31 14.7 /2015 [facility] HEMATOLOGY INR 0.93 0.85 - 03/31 1.17 /2015 [facility] HEMATOLOGY D-Dimer 0.80 ug/mL 03/31 FEU /2015 [facility] URINE AND UA Color Ltyellow 03/31 STOOL [facility] URINE AND UA <=1.0 0.1 - 1.0 03/31 STOOL Urobilinogen mg/dL /2015 [facility] URINE AND UA Ketones Negative Negative 03/31 STOOL mg/dL mg/dL /2015 [facility] URINE AND UA Protein Negative Negative 03/31 STOOL mg/dL mg/dL /2015 [facility] URINE AND UA Glucose Negative Negative 03/31 STOOL mg/dL mg/dL /2015 [facility] URINE AND UA pH 7.0 5.0 - 8.0 03/31 STOOL [facility] URINE AND UA Bili Negative Negative 03/31 STOOL [facility] *NA* (03/31/15 11:59 AM) URINE AND UA Blood Negative Negative 03/31 STOOL [facility] (03/31/15 11:59 AM) URINE AND UA Nitrite Negative Negative 03/31 STOOL [facility] (03/31/15 11:59 AM) URINE AND UA Leuk Est Negative Negative 03/31 STOOL [facility] (03/31/15 11:59 AM) URINE AND UA Sq Epi Occasional Few /LPF 03/31 STOOL /LPF /2015 [facility] URINE AND UA Turbidity Clear Clear 03/31 STOOL [facility] (03/31/15 11:59 AM) URINE AND UA Spec Grav 1.002 <=1.030 03/31 [facility] URINE AND UA RBC 1 /HPF 0 - 2 03/31 [facility] Chest Chest 1view Chest 1view DX 03/31 - 1view DX DX - [facility] CLINICAL HISTORY:Chest pain Read by: Shalom Mccurdy [...] IMPRESSION: No acute abnormality is noted. SL: [id number] CHEM PANEL eGFR 84 08/30 Result Comment: [...] is not recommended in the following populations: [facility] 3m2 Individuals with unstable creatinine concentrations, including [...] Lvl 88 mg/dL 70 - 99 08/30 [facility] CHEM PANEL CO2 29 meq/L 24 - 32 08/30 [facility] CHEM PANEL Calcium Lvl 8.4 mg/dL 8.5 - 10.5 08/30 [facility] CHEM PANEL Total 6.6 g/dL 6.4 - 8.4 08/30 [facility] CHEM PANEL BUN 7 mg/dL 7 - 08/30 [facility] CHEM PANEL Creatinine 0.9 mg/dL 0.5 - 1.4 08/30 MH Lvl /2014 [facility] CHEM PANEL Albumin Lvl 3.8 g/dL 3.5 - 5.0 08/30 [facility] CHEM PANEL AST 8 unit/L 0 - 37 08/30 [facility] CHEM PANEL ALT 13 unit/L 0 - 65 08/30 [facility] CHEM PANEL Bili Total 0.3 mg/dL 0.2 - 1.3 08/30 [facility] CHEM PANEL Alk Phos 82 unit/L 39 - 136 08/30 [facility] CHEM PANEL Chloride Lvl 103 meq/L 95 - 109 08/30 [facility] CHEM PANEL Potassium 4.1 meq/L 3.5 - 5.1 08/30 Lv [facility] CHEM PANEL Sodium Lvl 139 meq/L 135 - 145 08/30 [facility] CHEM PANEL AGAP 11.1 meq/L 10.0 - 08/30 MH 20.0 [facility] CHEM PANEL Globulin 2.8 g/dL 2.0 - 4.0 08/30 [facility] CHEM PANEL B/C Ratio 8 6 - 25 08/30 [facility] CHEM PANEL A/G Ratio 1.4 0.7 - 1.6 08/30 [facility] HEMATOLOGY Hgb 12.2 g/dL 12.0 - 08/30 MH 16.0 [facility] HEMATOLOGY Platelet 226 K/CMM 133 - 450 08/30 [facility] HEMATOLOGY MCV 90.2 fL 80.0 - 08/30 MH 98.0 [facility] HEMATOLOGY Hct 36.3 % 36.0 - 08/30 MH 48.0 [facility] HEMATOLOGY MCHC 33.7 g/dL 32.0 - 08/30 MH 36.0 /2014 [facility] HEMATOLOGY MCH 30.4 pg 27.0 - 08/30 MH 31.0 /2014 [facility] HEMATOLOGY RBC 4.03 M/CMM 4.20 - 08/30 MH 5.40 /2014 [facility] HEMATOLOGY WBC 6.2 K/CMM 3.7 - 10.4 08/30 [facility] HEMATOLOGY MPV 9.7 fL 7.4 - 10.4 08/30 [facility] HEMATOLOGY RDW 13.3 % 11.5 - 08/30 MH 14.5 [facility] HEMATOLOGY Eosinophils 0.4 K/CMM 0.0 - 0.5 08/30 MH # /2015 [facility] HEMATOLOGY Lymphocytes 2.0 K/CMM 1.0 - 5.5 / MH # /2015 [facility] HEMATOLOGY Segs-Bands # 3.3 K/CMM 1.5 - 8.1 08/30 /2014 [facility] HEMATOLOGY Segs 53.0 % 45.0 - 08/30 MH 75.0 /2014 [facility] HEMATOLOGY Monocytes 7.5 % 2.0 - 12.0 08/30 [facility] HEMATOLOGY Eosinophils 6.5 % 0.0 - 4.0 08/30 /2014 [facility] HEMATOLOGY Lymphocytes 32.4 % 20.0 - 08/30 MH 40.0 /2014 [facility] HEMATOLOGY Monocytes # 0.5 K/CMM 0.0 - 0.8 08/30 [facility] HEMATOLOGY Basophils 0.6 % 0.0 - 1.0 08/30 [facility] CHEM PANEL eGFR 84 08/29 Result Comment: [...] is not recommended in the following populations: [facility] 3m2 Individuals with unstable creatinine concentrations, including [...] Lvl 8.2 mg/dL 8.5 - 10.5 08/29 [facility] CHEM PANEL Chloride Lvl 106 meq/L 95 - 109 08/29 [facility] CHEM PANEL AGAP 10.0 meq/L 10.0 - 08/29 MH 20.0 [facility] CHEM PANEL CO2 28 meq/L 24 - 32 08/29 [facility] CHEM PANEL Potassium 4.0 meq/L 3.5 - 5.1 08/29 MH Lvl [facility] CHEM PANEL Sodium Lvl 140 meq/L 135 - 145 08/29 [facility] CHEM PANEL Creatinine 0.9 mg/dL 0.5 - 1.4 08/29 [facility] CHEM PANEL BUN 8 mg/dL - 08/29 [facility] CHEM PANEL Glucose Lvl 120 mg/dL 70 - 99 08/29 [facility] CHEM PANEL eGFR 172 08/29 Result Comment: [...] is not recommended in the following populations: [facility] 3m2 Individuals with unstable creatinine concentrations, including [...] Lvl 104 meq/L 95 - 109 08/29 [facility] CHEM PANEL Calcium Lvl 8.5 mg/dL 8.5 - 10.5 08/29 [facility] CHEM PANEL Sodium Lvl 134 meq/L 135 - 145 08/29 [facility] CHEM PANEL Potassium See Note 1 3.5 - 5.1 08/29 Result Comment: Grossly hemolyzed. sks notified Lissette Elham 08/29/2014 11:55 [facility] (08/29/14 10:50 AM) CHEM PANEL Creatinine 0.2 mg/dL 0.5 - 1.4 08/29 [facility] CHEM PANEL CO2 27 meq/L 24 - 32 08/29 [facility] CHEM PANEL Glucose Lvl 101 mg/dL 70 - 99 08/29 [facility] CHEM PANEL BUN 9 mg/dL 08/29 [facility] HEMATOLOGY MCH 30.7 pg 27.0 - 08/29 31. [facility] HEMATOLOGY MCHC 34.2 g/dL 32.0 - 08/29 MH 36.0 [facility] HEMATOLOGY RDW 13.7 % 11.5 - 08/29 14. [facility] HEMATOLOGY MCV 90.0 fL 80.0 - 08/29 MH 98.0 /2014 [facility] HEMATOLOGY Hct 39.8 % 36.0 - 08/29 MH 48.0 /2014 [facility] HEMATOLOGY Hgb 13.6 g/dL 12.0 - 08/29 MH 16.0 /2014 [facility] HEMATOLOGY RBC 4.42 M/CMM 4.20 - 08/29 MH 5.40 /2014 [facility] HEMATOLOGY Platelet 237 K/CMM 133 - 450 08/29 /2014 [facility] HEMATOLOGY MPV 10.4 fL 7.4 - 10.4 08/29 /2014 [facility] HEMATOLOGY WBC 6.6 K/CMM 3.7 - 10.4 08/29 /2014 [facility] HEMATOLOGY Lymphocytes 2.0 K/CMM 1.0 - 5.5 08/29 MH # /2014 [facility] HEMATOLOGY Monocytes # 0.4 K/CMM 0.0 - 0.8 08/29 [facility] HEMATOLOGY Eosinophils 0.3 K/CMM 0.0 - 0.5 08/29 # /2014 [facility] HEMATOLOGY Basophils 0.4 % 0.0 - 1.0 08/29 [facility] HEMATOLOGY Eosinophils 3.8 % 0.0 - 4.0 08/29 /2014 [facility] HEMATOLOGY Segs-Bands # 3.8 K/CMM 1.5 - 8.1 08/29 [facility] HEMATOLOGY Segs 57.9 % 45.0 - 08/29 MH 75.0 [facility] HEMATOLOGY Monocytes 6.6 % 2.0 - 12.0 08/29 [facility] HEMATOLOGY Lymphocytes 31.3 % 20.0 - 08/29 MH 40.0 [facility] HEMATOLOGY Sed Rate 1 mm/h 0 - 20 08/29 [facility] IMMUNOLOGY Chlam PCR Negative Negative 08/28 [facility] (08/28/14 12:43 PM) IMMUNOLOGY Source [place] [employer] 08/28 [facility] IMMUNOLOGY Source [place] [employer] 08/28 [facility] IMMUNOLOGY Gonorrhea Negative Negative 08/28 /2014 [facility] (08/28/14 12:43 PM) CARDIAC BNP 14 pg/mL <=100 08/28 [facility] pg/mL /2014 [facility] HEMATOLOGY Segs 48.0 % 45.0 - 08/28 MH 75.0 [facility] HEMATOLOGY Monocytes # 0.3 K/CMM 0.0 - 0.8 08/28 [facility] HEMATOLOGY Eosinophils 6.1 % 0.0 - 4.0 08/28 MH /2014 [facility] HEMATOLOGY Lymphocytes 39.1 % 20.0 - 08/28 MH 40.0 /2014 [facility] HEMATOLOGY Segs-Bands # 2.7 K/CMM 1.5 - 8.1 08/28 /2014 [facility] HEMATOLOGY Eosinophils 0.3 K/CMM 0.0 - 0.5 08/28 MH # /2014 [facility] HEMATOLOGY Lymphocytes 2.2 K/CMM 1.0 - 5.5 08/28 MH # /2014 [facility] HEMATOLOGY Monocytes 6.1 % 2.0 - 12.0 08/28 /2014 [facility] HEMATOLOGY Basophils 0.7 % 0.0 - 1.0 08/28 /2014 [facility] HEMATOLOGY Platelet 226 K/CMM 133 - 450 08/28 /2014 [facility] HEMATOLOGY MPV 9.4 fL 7.4 - 10.4 08/28 /2014 [facility] HEMATOLOGY RDW 13.1 % 11.5 - 08/28 MH 14.5 /2014 [facility] HEMATOLOGY MCHC 33.2 g/dL 32.0 - 08/28 36.0 /2014 [facility] HEMATOLOGY RBC 3.87 M/CMM 4.20 - 08/28 MH 5.40 /2014 [facility] HEMATOLOGY WBC 5.7 K/CMM 3.7 - 10.4 08/28 /2014 [facility] HEMATOLOGY Hct 35.1 % 36.0 - 08/28 48.0 /2014 [facility] HEMATOLOGY Hgb 11.7 g/dL 12.0 - 08/28 16.0 /2014 [facility] MCH 30.2 pg 27.0 - 08/28 31.0 /2014 [facility] HEMATOLOGY MCV 90.8 fL 80.0 - 08/28 98.0 /2014 [facility] THYROID TSH 3.290 0.360 - 08/28 PANEL uIU/mL 3.740 /2014 [facility] Pelvis w Pelvis w PELVIC ULTRASOUND: 08/28 - Pelvis Pelvis /2014 - [facility] Transvagin Transvaginal al US US CLINICAL HX: [...] MRI. SL:13 Brain wo Brain wo MRA [place]: 08/27 contrast contrast MRA /2014 MRA CLINICAL HX: Vertigo Read by: Shalom Mccurdy MD Dictated Date/time: 08/28/14 07:48 Electronically Signed by: Shalom Mccurdy MD 08/28/14 07:51 FINAL REPORT COMPARISON: MRI brain 08/27/2014 TECHNIQUE: 3-D [id number] images of the [place] were performed. Images were reformatted [...] is identified. Both vertebral arteries, basilar artery, [employer], and SCA demonstrate normal signal. No gross aneurysm is identified in the posterior circulation. IMPRESSION: No significant abnormality is noted on the MRA of [place]. SL:13 CHEM PANEL Bili Total 0.2 mg/dL 0.2 - 1.3 08/27 [facility] CHEM PANEL Alk Phos 69 unit/L 39 - 136 08/27 [facility] CHEM PANEL Total 6.0 g/dL 6.4 - 8.4 08/27 [facility] CHEM PANEL B/C Ratio 11 6 - 25 08/27 [facility] CHEM PANEL AGAP 12.9 meq/L 10.0 - 08/27 20.0 [facility] CHEM PANEL AST 7 unit/L 0 - 37 08/27 [facility] CHEM PANEL ALT 14 unit/L 0 - 65 08/27 [facility] CHEM PANEL Globulin 3.0 g/dL 2.0 - 4.0 08/27 [facility] CHEM PANEL Albumin Lvl 3.0 g/dL 3.5 - 5.0 08/27 [facility] CHEM PANEL A/G Ratio 1.0 0.7 - 1.6 08/27 [facility] URINE AND UA <=1.0 0.1 - 1.0 08/26 [facility] Urobilinogen mg/dL /2014 [facility] URINE AND UA Color Ltyellow 08/26 STOOL [facility] URINE AND UA Bacteria Occasional None Seen 08/26 STOOL /HPF /HPF /2014 [facility] URINE AND UA RBC 1 /HPF 0 - 2 08/26 STOOL [facility] URINE AND UA Sq Epi Occasional Few /LPF 08/26 STOOL /LPF /2014 [facility] URINE AND UA WBC 1 /HPF 0 - 5 08/26 STOOL [facility] URINE AND UA Nitrite Negative Negative 08/26 STOOL [facility] (08/26/14 2:06 PM) URINE AND UA Leuk Est Negative Negative 08/26 STOOL [facility] (08/26/14 2:06 PM) URINE AND UA Blood Negative Negative 08/26 STOOL [facility] (08/26/14 2:06 PM) URINE AND UA Bili Negative Negative 08/26 STOOL [facility] *NA* (08/26/14 2:06 PM) URINE AND UA Protein Negative Negative 08/26 [facility]OOL mg/dL mg/dL URINE AND UA Glucose Negative Negative 08/26 STOOL mg/dL mg/dL [facility] URINE AND UA Ketones Negative Negative 08/26 STOOL mg/dL mg/dL [facility] URINE AND UA Spec Grav 1.013 <=1.030 08/26 STOOL [facility] URINE AND UA pH 7.0 5.0 - 8.0 08/26 STOOL [facility] URINE AND UA Turbidity Clear Clear 08/26 STOOL [facility] (08/26/14 2:06 PM) URINE CHEM U Preg Negative Negative 08/26 [facility] (08/26/14 2:06 PM) CARDIAC Total CK 101 unit/L 12 - 191 08/26 [facility] CARDIAC CK MB null 0.5 - 3.6 08/26 [facility] CARDIAC Troponin-I null 0.00 - 08/26 [facility] 0.40 /2014 [facility] CARDIAC CK MB Index null 0.0 - 2.5 08/26 [facility] CHEM PANEL Lipase Lvl 113 unit/L 73 - 393 08/26 [facility] CHEM PANEL Total 7.7 g/dL 6.4 - 8.4 08/26 Protein [facility] CHEM PANEL Albumin Lvl 4.0 g/dL 3.5 - 5.0 08/26 [facility] CHEM PANEL AST 12 unit/L 0 - 37 08/26 [facility] CHEM PANEL ALT 17 unit/L 0 - 65 08/26 [facility] CHEM PANEL Alk Phos 84 unit/L 39 - 136 08/26 [facility] CHEM PANEL Bili Total 0.2 mg/dL 0.2 - 1.3 08/26 [facility] CHEM PANEL B/C Ratio 8 6 - 25 08/26 [facility] CHEM PANEL Globulin 3.7 g/dL 2.0 - 4.0 08/26 [facility] CHEM PANEL A/G Ratio 1.1 0.7 - 1.6 08/26 [facility] CHEM PANEL Amylase Lvl 80 unit/L 25 - 115 08/26 [facility] HEMATOLOGY PT 18.6 s 12.0 - 08/26 MH 14.7 /2014 [facility] HEMATOLOGY INR 1.52 0.85 - 08/26 MH 1.17 /2014 [facility] HEMATOLOGY PTT 40.7 s 22.9 - 08/26 MH 35.8 /2014 [facility] ED ED HISTORY: Abdominal pain. 08/26 Abdomen/Pe Abdomen/Pelv /2014 - [facility] lvis IV is IV contrast contrast only [...] CT 08/[address] /2014 - [facility] CT CLINICAL INDICATION: Focal neurological deficit Read [...] Focal neurological deficit. 08/26 1view DX - [facility] Chest one view. Read by: Augie Klein MD Dictated Date/time: 08/26/14 15:04 Electronically Signed by: Augie Klein MD 08/26/14 15:04 FINAL REPORT No previous for comparison. Lungs are clear. Cardiomediastinal silhouette normal. No pleural effusion or pneumothorax. Monitoring leads overlie the chest. IMPRESSION: Negative SL:13 HEMATOLOGY Segs 56.3 % 45.0 - 07/ MH 75.0 /2014 [facility] HEMATOLOGY Lymphocytes 25.6 % 20.0 - 07/ MH 40.0 /2014 [facility] HEMATOLOGY Monocytes 6.7 % 2.0 - 12.0 / /2014 [facility] HEMATOLOGY Eosinophils 11.1 % 0.0 - 4.0 / /2014 [facility] HEMATOLOGY Basophils 0.3 % 0.0 - 1.0 / /2014 [facility] HEMATOLOGY Segs-Bands # 4.0 K/CMM 1.5 - 8.1 / [facility] HEMATOLOGY Lymphocytes 1.8 K/CMM 1.0 - 5.5 / /2014 [facility] HEMATOLOGY Monocytes # 0.5 K/CMM 0.0 - 0.8 / [facility] Eosinophils 0.8 K/CMM 0.0 - 0.5 08/10 /2014 [facility] WBC 7.0 K/CMM 3.7 - 10.4 08/10 [facility] Platelet 184 K/CMM 133 - 450 07/ [facility] [place] MPV 9.5 fL 7.4 - 10.4 08/10 [facility] [place] MCH 30.7 pg 27.0 - 07/ MH 31.0 /2014 [facility] [place] MCHC 33.8 g/dL 32.0 - 08/10 MH 36.0 /2014 [facility] [place] MCV 90.9 fL 80.0 - 08/10 MH 98.0 /2014 [facility] [place] RDW 14.1 % 11.5 - 07 MH 14.5 /2014 [facility] [place] RBC 3.90 M/CMM 4.20 - 07/ MH 5.40 /2014 [facility] [place] Hgb 12.0 g/dL 12.0 - 08/10 MH 16.0 /2014 [facility] [place] Hct 35.5 % 36.0 - 08/10 MH 48.0 /2014 [facility] CHEM PANEL eGFR 120 08/09 1Result Comment: [...] is not recommended in the following populations: [facility] 3m2 Individuals with unstable creatinine concentrations, including [...] BUN 6 mg/dL 7 - 22 08/09 [facility] CHEM PANEL Calcium Lvl 7.8 mg/dL 8.5 - 10.5 08/09 [facility] CHEM PANEL Glucose Lvl 83 mg/dL 70 - 99 08/09 4Interpretive Data: Adult reference range values reflect the clinical guidelines of the [place] [employer]. [facility] CHEM PANEL AGAP 10.8 meq/L 10.0 - 08/09 20.0 [facility] CHEM PANEL Creatinine 0.6 mg/dL 0.5 - 1.4 08/09 Lvl [facility] CHEM PANEL CO2 24 meq/L 24 - 32 08/09 [facility] CHEM PANEL Potassium 3.8 meq/L 3.5 - 5.1 08/09 Lv [facility] CHEM PANEL Chloride Lvl 110 meq/L 95 - 109 08/09 [facility] CHEM PANEL Sodium Lvl 141 meq/L 135 - 145 08/09 [facility] HEMATOLOGY Segs 45.3 % 45.0 - 07 MH 75.0 /2014 [facility] HEMATOLOGY Monocytes 5.5 % 2.0 - 12.0 08/09 [facility] HEMATOLOGY Lymphocytes 39.2 % 20.0 - 07 MH 40.0 /2014 [facility] HEMATOLOGY Eosinophils 9.5 % 0.0 - 4.0 08/09 [facility] HEMATOLOGY Basophils 0.5 % 0.0 - 1.0 08/09 [facility] HEMATOLOGY Segs-Bands # 3.0 K/CMM 1.5 - 8.1 08/09 [facility] HEMATOLOGY Eosinophils 0.6 K/CMM 0.0 - 0.5 08/09 # /2014 [facility] HEMATOLOGY Monocytes # 0.4 K/CMM 0.0 - 0.8 /2014 [facility] HEMATOLOGY Lymphocytes 2.6 K/CMM 1.0 - 5.5 / # /2014 [facility] HEMATOLOGY RDW 13.9 % 11.5 - 08/09 MH 14.5 /2014 [facility] HEMATOLOGY MCHC 33.5 g/dL 32.0 - 08/09 MH 36.0 /2014 [facility] HEMATOLOGY RBC 3.60 M/CMM 4.20 - 08/09 MH 5.40 /2014 [facility] HEMATOLOGY Hgb 11.1 g/dL 12.0 - 08/09 MH 16.0 /2014 [facility] HEMATOLOGY WBC 6.7 K/CMM 3.7 - 10.4 08/09 /2014 [facility] HEMATOLOGY MPV 9.8 fL 7.4 - 10.4 08/09 /2014 [facility] [place] MCH 30.8 pg 27.0 - 08/09 31.0 /2014 [facility] [place] Platelet 174 K/CMM 133 - 450 08/09 [facility] [place] Hct 33.0 % 36.0 - 08/09 48.0 /2014 [facility] HEMATOLOGY MCV 91.8 fL 80.0 - 08/09 98.0 /2014 [facility] ELECTROLYT Chloride Lvl 107 meq/L 95 - 109 08/08 [facility] [facility] Sodium Lvl 139 meq/L 135 - 145 08/08 ES [facility] ELECTROLYT Calcium Lvl 7.6 mg/dL 8.5 - 10.5 08/08 /2014 [facility] ELECTROLYT Potassium 3.9 meq/L 3.5 - 5.1 08/08 ES Lvl /2014 [facility] ELECTROLYT eGFR 97 08/08 2Result Comment: The [...] is not recommended in the following populations: [facility] 3m2 Individuals with unstable creatinine concentrations, including [...] 0.5 - 1.4 / ES Lvl /2014 [facility] ELECTROLYT BUN 6 mg/dL 7 - 22 / ES /2014 [facility] ELECTROLYT Glucose Lvl 79 mg/dL 70 - 99 / 5Interpretive Data: Adult reference range values reflect the clinical guidelines of the [place] [employer]. [facility] ELECTROLYT CO2 25 meq/L 24 - 32 07/ ES /2014 [facility] ELECTROLYT AGAP 10.9 meq/L 10.0 - 08/08 ES 20.0 /2014 [facility] HEMATOLOGY MCH 30.8 pg 27.0 - 08/08 MH 31.0 /2014 [facility] HEMATOLOGY MCHC 33.9 g/dL 32.0 - 07 MH 36.0 /2014 [facility] HEMATOLOGY MCV 91.0 fL 80.0 - 08/08 MH 98.0 /2014 [facility] HEMATOLOGY Hct 32.9 % 36.0 - 08/08 48.0 /2014 [facility] HEMATOLOGY Hgb 11.1 g/dL 12.0 - 08/08 MH 16.0 /2014 [facility] HEMATOLOGY MPV 9.9 fL 7.4 - 10.4 / /2014 [facility] HEMATOLOGY Platelet 185 K/CMM 133 - 450 / /2014 [facility] HEMATOLOGY RDW 14.1 % 11.5 - 07/ 14.5 /2014 [facility] HEMATOLOGY WBC 6.4 K/CMM 3.7 - 10.4 / /2014 [facility] HEMATOLOGY RBC 3.61 M/CMM 4.20 - 07/ MH 5.40 /2014 [facility] HEMATOLOGY Eosinophils 0.2 K/CMM 0.0 - 0.5 / MH # /2014 [facility] HEMATOLOGY Monocytes 6.1 % 2.0 - 12.0 / /2014 [facility] HEMATOLOGY Segs-Bands # 3.5 K/CMM 1.5 - 8.1 / /2014 [facility] HEMATOLOGY Eosinophils 3.8 % 0.0 - 4.0 / /2014 [facility] HEMATOLOGY Lymphocytes 2.2 K/CMM 1.0 - 5.5 / MH # /2014 [facility] HEMATOLOGY Basophils 0.6 % 0.0 - 1.0 / /2014 [facility] HEMATOLOGY Monocytes # 0.4 K/CMM 0.0 - 0.8 08/08 [facility] HEMATOLOGY Lymphocytes 34.8 % 20.0 - / MH 40.0 /2014 [facility] HEMATOLOGY Segs 54.7 % 45.0 - 08/08 75.0 /2014 [facility] ELECTROLYT AGAP 12.2 meq/L 10.0 - 08/07 ES 20.0 [facility] ELECTROLYT eGFR 97 08/07 3Result Comment: The eGFR is calculated using the CKD-EPI formula. In most young, healthy individuals the eGFR will be >90 mL/ min/1.73m2. The eGFR declines with age. An eGFR of 60-89 may be normal in [facility] mL/min/1.7 some populations, particularly the elderly, for whom the CKD-EPI formula has not been extensively validated. Use of the eGFR is not recommended in the following populations: [facility] 3m2 Individuals with unstable creatinine concentrations, including [...] Creatinine 0.8 mg/dL 0.5 - 1.4 08/07 [facility] ELECTROLYT BUN 8 mg/dL 7 - 22 08/07 [facility] ELECTROLYT Sodium Lvl 139 meq/L 135 - 145 08/07 [facility] ELECTROLYT Chloride Lvl 106 meq/L 95 - 109 08/07 [facility] ELECTROLYT Potassium 4.2 meq/L 3.5 - 5.1 08/07 Lv [facility] ELECTROLYT Calcium Lvl 8.2 mg/dL 8.5 - 10.5 08/07 [facility] ELECTROLYT CO2 25 meq/L 24 - 32 08/07 [facility] ELECTROLYT Glucose Lvl 80 mg/dL 70 - 99 08/07 6Interpretive Data: Adult reference range values reflect the clinical guidelines of the [place] [employer]. [facility] HEMATOLOGY Basophils # 0.1 K/CMM 0.0 - 0.2 08/07 [facility] Abdomen/Pe Abdomen/Pelv I. CT SCAN of the ABDOMEN without contrast 08/06 - MH lvis wo IV is wo IV /2014 [facility] contrast contrast CT II. CT SCAN of [...] - 1.0 08/06 STOOL Urobilinogen mg/dL /2014 [facility] URINE AND UA Color Ltyellow 08/06 [facility] URINE AND UA Mucus Many /LPF None Seen 08/06 STOOL /LPF [facility] URINE AND UA Bacteria Occasional None Seen 08/06 [facility] /HPF /HPF [facility] URINE AND UA RBC 3 /HPF 0 - 2 08/06 [facility] URINE AND UA WBC 1 /HPF 0 - 5 08/06 [facility] URINE AND UA Leuk Est Negative Negative 08/06 [facility] (08/06/14 11:41 AM) URINE AND UA Sq Epi Occasional Few /LPF 08/06 STOOL /LPF [facility] URINE AND UA pH 6.0 5.0 - 8.0 08/06 [facility] URINE AND UA Protein Negative Negative 08/06 [facility] mg/dL mg/dL [facility] URINE AND UA Ketones Negative Negative 08/06 [facility] mg/dL mg/dL [facility] URINE AND UA Glucose Negative Negative 08/06 [facility] mg/dL mg/dL [facility] URINE AND UA Nitrite Negative Negative 08/06 [facility] (08/06/14 11:41 AM) URINE AND UA Bili Negative Negative 08/06 [facility] *NA* (08/06/14 11:41 AM) URINE AND UA Blood Negative Negative 08/06 [facility] (08/06/14 11:41 AM) URINE AND UA Spec Grav 1.013 <=1.030 08/06 [facility] URINE AND UA Turbidity Clear Clear 08/06 [facility] (08/06/14 11:41 AM) URINE CHEM U Preg Negative Negative 08/06 [facility] (08/06/14 11:41 AM) HEMATOLOGY Basophils # 0.1 K/CMM 0.0 - 0.2 08/06 [facility] HEMATOLOGY INR 1.06 0.85 - 08/06 7Interpretive Data: RECOMMENDED RANGES FOR PROTIME INR: 1. 2.0-3.0 for most medical and surgical thromboembolic states. [facility] 2.5-3.5 for artificial heart valves and recurrent embolism. INR SHOULD BE USED ONLY FOR PATIENTS ON STABLE ANTICOAGULANT THERAPY. HEMATOLOGY PT 13.8 s 12.0 - 08/06 14.7 [facility] CHEM PANEL Total 7.6 g/dL 6.4 - 8.4 08/05 [facility] CHEM PANEL AST 9 unit/L 0 - 37 08/05 [facility] CHEM PANEL Albumin Lvl 4.5 g/dL 3.5 - 5.0 08/05 [facility] CHEM PANEL ALT 14 unit/L 0 - 65 08/05 [facility] CHEM PANEL Alk Phos 84 unit/L 39 - 136 08/05 [facility] CHEM PANEL Bili Total 0.2 mg/dL 0.2 - 1.3 08/05 [facility] CHEM PANEL Globulin 3.1 g/dL 2.0 - 4.0 08/05 [facility] CHEM PANEL A/G Ratio 1.5 0.7 - 1.6 08/05 [facility] CHEM PANEL B/C Ratio 12 6 - 25 08/05 [facility] HEMATOLOGY Basophils # 0.1 K/CMM 0.0 - 0.2 08/05 [facility] HEMATOLOGY PT 12.3 s 12.0 - 08/05 14.7 [facility] HEMATOLOGY PTT 32.0 s 22.9 - 08/05 9Interpretive 35.8 /2014 Data: Heparin [facility] Therapeutic Range: 57 - 92 Seconds HEMATOLOGY INR 0.92 0.85 - 08/05 8Interpretive Data: RECOMMENDED RANGES FOR PROTIME INR: 1. 2.0-3.0 for most medical and surgical thromboembolic states. [facility] 2.5-3.5 for artificial heart valves and recurrent embolism. INR SHOULD BE USED ONLY FOR PATIENTS ON STABLE ANTICOAGULANT THERAPY. Ext Upper Ext Upper LEFT UPPER EXTREMITY DOPPLER ULTRASOUND 08/05 - Venous Venous /2014 - [facility] Doppler Doppler Unilat US Unilat US INDICATION: [...] Lvl 72 unit/L 25 - 115 04/04 [facility] CHEM PANEL Lipase Lvl 145 unit/L 73 - 393 04/04 [facility] ELECTROLYT Potassium 3.6 meq/L 3.5 - 5.1 04/04 ES Lvl [facility] ELECTROLYT Chloride Lvl 105 meq/L 95 - 109 04/04 [facility] ELECTROLYT Sodium Lvl 139 meq/L 135 - 145 04/04 [facility] ELECTROLYT CO2 28 meq/L 24 - 32 04/04 [facility] ELECTROLYT eGFR 97 04/04 1Result Comment: The [...] is not recommended in the following populations: [facility] 3m2 Individuals with unstable creatinine concentrations, including [...] g/dL 6.4 - 8.4 04/04 ES Protein [facility] ELECTROLYT AST 13 unit/L 0 - 37 04/04 [facility] ELECTROLYT Bili Total 0.2 mg/dL 0.2 - 1.3 04/04 [facility] ELECTROLYT Calcium Lvl 8.4 mg/dL 8.5 - 10.5 04/04 [facility] ELECTROLYT Creatinine 0.8 mg/dL 0.5 - 1.4 04/04 Lvl [facility] ELECTROLYT ALT 22 unit/L 0 - 65 04/04 [facility] ELECTROLYT Albumin Lvl 4.1 g/dL 3.5 - 5.0 04/04 [facility] Alk Phos 87 unit/L 39 - 136 04/04 [facility] ELECTROLYT Glucose Lvl 76 mg/dL 70 - 99 04/04 2Interpretive Data: Adult reference range values reflect the clinical guidelines of the [place] [employer]. [facility] BUN 8 mg/dL 7 - 22 04/04 [facility] AGAP 9.6 meq/L 10.0 - 04/04 ES 20.0 [facility] A/G Ratio 1.2 0.7 - 1.6 04/04 [facility] B/C Ratio 10 6 - 25 04/04 [facility] Globulin 3.4 g/dL 2.0 - 4.0 04/04 [facility] HEMATOLOGY MCHC 33.1 g/dL 32.0 - 04/04 MH 36.0 /2014 [facility] HEMATOLOGY MCH 30.4 pg 27.0 - 04/04 MH 31.0 [facility] HEMATOLOGY RDW 13.8 % 11.5 - 04/04 MH 14.5 /2014 [facility] HEMATOLOGY MCV 91.9 fL 80.0 - 04/04 MH 98.0 /2014 [facility] HEMATOLOGY Hct 36.0 % 36.0 - 04/04 MH 48.0 /2014 [facility] HEMATOLOGY MPV 9.0 fL 7.4 - 10.4 04/04 /2014 [facility] HEMATOLOGY Platelet 227 K/CMM 133 - 450 04/04 [facility] HEMATOLOGY RBC 3.92 M/CMM 4.20 - 04/04 MH 5.40 /2014 [facility] HEMATOLOGY WBC 4.6 K/CMM 3.7 - 10.4 04/04 /2014 [facility] HEMATOLOGY Hgb 11.9 g/dL 12.0 - 04/04 MH 16.0 /2014 [facility] HEMATOLOGY Eosinophils 0.1 K/CMM 0.0 - 0.5 04/04 MH /2014 [facility] HEMATOLOGY Segs 54.4 % 45.0 - 04/04 MH 75.0 /2014 [facility] HEMATOLOGY Lymphocytes 36.0 % 20.0 - 04/04 MH 40.0 /2014 [facility] HEMATOLOGY Monocytes 7.1 % 2.0 - 12.0 04/04 [facility] HEMATOLOGY Eosinophils 1.7 % 0.0 - 4.0 04/04 [facility] HEMATOLOGY Basophils 0.8 % 0.0 - 1.0 04/04 [facility] HEMATOLOGY Segs-Bands # 2.5 K/CMM 1.5 - 8.1 04/04 [facility] HEMATOLOGY Monocytes # 0.3 K/CMM 0.0 - 0.8 04/04 [facility] HEMATOLOGY Lymphocytes 1.6 K/CMM 1.0 - 5.5 04/04 # [facility] URINE AND UA Sq Epi None Seen Few 04/04 STOOL [facility] (04/04/14 12:07 PM) URINE AND UA WBC None Seen None Seen 04/04 [facility] (04/04/14 12:07 PM) URINE AND UA RBC None Seen 0 - 2 04/04 (04/04/14 12:07 PM) URINE AND UA Bacteria None Seen None Seen 04/04 [facility] (04/04/14 12:07 PM) URINE AND UA Leuk Est Negative Negative 04/04 [facility] (04/04/14 12:07 PM) URINE AND UA Nitrite Negative Negative 04/04 STOOL [facility] (04/04/14 12:07 PM) URINE AND UA Protein Negative Negative 04/04 [facility] (04/04/14 12:07 PM) URINE AND UA pH 6.0 5.0 - 8.0 04/04 URINE AND UA 0.2 EU/dL 0.1 - 1.0 04/04 STOOL Urobilinogen [facility] URINE AND UA Spec Grav <=1.005 <=1.030 04/04 STOOL
*NA*< [facility] br/>( 12:07 PM) URINE AND UA Glucose Negative Negative 04/04 [facility] (04/04/14 12:07 PM) URINE AND UA Ketones Negative Negative 04/04 [facility] *NA* (04/04/14 12:07 PM) URINE AND UA Bili Negative Negative 04/04 [facility] *NA* (04/04/14 12:07 PM) URINE AND UA Blood Small Negative 04/04 [facility] *ABN* (04/04/14 12:07 PM) URINE AND UA Color Yellow Yellow 04/04 [facility] *NA* (04/04/14 12:07 PM) URINE AND UA Turbidity Clear Clear 04/04 STOOL [facility] (04/04/14 12:07 PM) URINE CHEM U Preg Negative Negative 04/04 [facility] (04/04/14 12:07 PM) Abdomen/Pe Abdomen/Pelv PROCEDURE: Abdomen/Pelvis w contrast CT 04/04 - lvis w IV is w IV /2014 - [facility] contrast contrast CT REASON FOR EXAM: appy [...] Chloride CSF 124 meq/L 01/29 NA FLUIDS [facility] BODY Protein CSF 23 mg/dL 15 - 45 01/29 Normal FLUIDS [facility] BODY Glucose CSF 54 mg/dL 45 - 80 01/29 Normal [facility] BODY Supernat CSF Colorless Colorless 01/29 Normal [facility] (01/29/2011 04:40:00) BODY Clarity CSF Clear Clear 01/29 Normal FLUIDS [facility] (01/29/2011 04:40:00) BODY RBC CSF 0 /mm3 0 - 0 01/29 Normal [facility] BODY WBC CSF 1 /mm3 0 - 5 01/29 Normal [facility] BODY Color CSF Colorless Colorless 01/29 Normal [facility] (01/29/2011 04:40:00) BODY Tube Num CSF 1 01/29 NA [facility] IMMUNOLOGY VDRL Scr CSF Non Reactive Non 01/29 Normal Reactive /2010 [facility] (01/29/2011 04:40:00) Microbiolo Culture: AFB 01/29 gy w/Smear /2010 [facility] Microbiolo Culture: CSF 01/29 gy w/Gram Stain /2010 [facility] Vital Signs Vital Sign Value Date Comments Source Systolic (mm Hg) 129 08/12/2017 [facility] Diastolic (mm Hg) 92 08/12/2017 [facility] Heart Rate 96 08/12/2017 [facility] Respitory Rate 18 08/12/2017 [facility] Temperature Oral (F) 97.9 F 08/12/2017 [facility] Systolic (mm Hg) 144 08/11/2017 [facility] Diastolic (mm Hg) 94 08/11/2017 [facility] Systolic (mm Hg) 139 08/11/2017 [facility] Diastolic (mm Hg) 89 08/11/2017 [facility] Respitory Rate 18 08/11/2017 [facility] Temperature Oral (F) 98.0 F 08/11/2017 [facility] Heart Rate 85 08/11/2017 [facility] Temperature Oral (F) 98.2 F 08/11/2017 [facility] Respitory Rate 18 08/11/2017 [facility] Heart Rate 87 08/11/2017 [facility] BMI Calculated 36.2 08/09/2017 [facility] Height 180.34 cm 08/09/2017 [facility] Weight 117.727 08/09/2017 [facility] Weight 68.182 08/09/2017 [facility] Height 180.34 cm 08/09/2017 [facility] BMI Calculated 20.96 08/09/2017 [facility] BMI Calculated 34.84 08/09/2017 [facility] Weight 113.295 08/09/2017 [facility] Height 180.34 cm 08/09/2017 [facility] 132 08/09/2017 [facility] Temperature Oral (F) 97.9 F 08/09/2017 [facility] Systolic (mm Hg) 114 08/09/2017 [facility] Diastolic (mm Hg) 80 08/09/2017 [facility] Systolic (mm Hg) 147 08/08/2017 [facility] Diastolic (mm Hg) 91 08/08/2017 [facility] Heart Rate 97 08/08/2017 [facility] Temperature Oral (F) 97.7 F 08/08/2017 [facility] Heart Rate 98 08/08/2017 [facility] Respitory Rate 16 08/08/2017 [facility] Systolic (mm Hg) 135 08/08/2017 [facility] Diastolic (mm Hg) 87 08/08/2017 [facility] Temperature Oral (F) 98.4 F 08/08/2017 [facility] Respitory Rate 14 08/07/2017 [facility] Heart Rate 94 08/07/2017 [facility] Systolic (mm Hg) 142 08/07/2017 [facility] Diastolic (mm Hg) 88 08/07/2017 [facility] Temperature Oral (F) 98.0 F 08/07/2017 [facility] Respitory Rate 16 08/07/2017 [facility] Height 180.34 cm 08/07/2017 [facility] Weight 112.983 08/07/2017 [facility] BMI Calculated 34.74 08/07/2017 [facility] Heart Rate 113 08/07/2017 [facility] Systolic (mm Hg) 130 08/07/2017 [facility] Diastolic (mm Hg) 72 08/07/2017 [facility] Temperature Oral (F) 98.3 F 08/07/2017 [facility] Respitory Rate 18 08/07/2017 [facility] Heart Rate 109 08/07/2017 [facility] Temperature Oral (F) 98.3 F 08/07/2017 [facility] Systolic (mm Hg) 129 08/07/2017 [facility] Diastolic (mm Hg) 89 08/07/2017 [facility] Height 180.34 cm 08/06/2017 [facility] Weight 110.455 08/06/2017 [facility] Systolic (mm Hg) 128 08/06/2017 [facility] Diastolic (mm Hg) 66 08/06/2017 [facility] Respitory Rate 20 08/06/2017 [facility] Temperature Oral (F) 98.4 F 08/06/2017 [facility] BMI Calculated 33.96 08/06/2017 [facility] Heart Rate 117 08/06/2017 [facility] BMI Calculated 35.08 06/17/2017 [facility] Weight 114.091 06/17/2017 [facility] Height 180.34 cm 06/17/2017 [facility] Heart Rate 101 06/17/2017 [facility] Systolic (mm Hg) 124 06/17/2017 [facility] Diastolic (mm Hg) 73 06/17/2017 [facility] Temperature Oral (F) 98.1 F 06/17/2017 [facility] Systolic (mm Hg) 118 03/31/2015 [facility] Diastolic (mm Hg) 72 03/31/2015 [facility] Temperature Oral (F) 98 F 03/31/2015 [facility] Respitory Rate 16 03/31/2015 [facility] Heart Rate 88 03/31/2015 [facility] Temperature Oral (F) 98.1 F 03/31/2015 [facility] Respitory Rate 18 03/31/2015 [facility] Heart Rate 107 03/31/2015 [facility] Systolic (mm Hg) 137 03/31/2015 [facility] Diastolic (mm Hg) 92 03/31/2015 [facility] Weight 97.727 03/31/2015 [facility] BMI Calculated 30.05 03/31/2015 [facility] Height 180.34 cm 03/31/2015 [facility] Respitory Rate 16 08/30/2014 [facility] Temperature Oral (F) 97.9 F 08/30/2014 [facility] Heart Rate 94 08/30/2014 [facility] Systolic (mm Hg) 107 08/30/2014 [facility] Diastolic (mm Hg) 73 08/30/2014 [facility] Heart Rate 82 08/30/2014 [facility] Temperature Oral (F) 97.4 F 08/30/2014 [facility] Respitory Rate 18 08/30/2014 [facility] Systolic (mm Hg) 99 08/30/2014 [facility] Diastolic (mm Hg) 68 08/30/2014 [facility] Respitory Rate 17 08/30/2014 [facility] Systolic (mm Hg) 106 08/30/2014 [facility] Diastolic (mm Hg) 71 08/30/2014 [facility] Heart Rate 78 08/30/2014 [facility] Temperature Oral (F) 97.9 F 08/30/2014 [facility] Height 180.34 cm 08/27/2014 [facility] Weight 86 08/27/2014 [facility] BMI Calculated 26.44 08/27/2014 [facility] Weight 88.636 08/26/2014 [facility] Height 71 08/15/2014 [facility] Weight 196 08/15/2014 [facility] Temperature Oral (F) 98.4 F 08/15/2014 [facility] Heart Rate 83 08/15/2014 [facility] Systolic (mm Hg) 127 08/15/2014 [facility] Diastolic (mm Hg) 80 08/15/2014 [facility] Heart Rate 85 08/10/2014 [facility] Temperature Oral (F) 98.2 F 08/10/2014 [facility] Respitory Rate 16 08/10/2014 [facility] Systolic (mm Hg) 93 08/10/2014 [facility] Diastolic (mm Hg) 59 08/10/2014 [facility] Systolic (mm Hg) 94 08/10/2014 [facility] Diastolic (mm Hg) 60 08/10/2014 [facility] Temperature Oral (F) 98.1 F 08/10/2014 [facility] Heart Rate 86 08/10/2014 [facility] Respitory Rate 16 08/10/2014 [facility] Heart Rate 80 08/10/2014 [facility] Systolic (mm Hg) 100 08/10/2014 [facility] Diastolic (mm Hg) 54 08/10/2014 [facility] Respitory Rate 16 08/10/2014 [facility] Temperature Oral (F) 98.2 F 08/10/2014 [facility] BMI Calculated 26.42 08/05/2014 [facility] Weight 85.909 08/05/2014 [facility] Height 180.34 cm 08/05/2014 [facility] Temperature Oral (F) 98.0 F 04/04/2014 [facility] Systolic (mm Hg) 133 04/04/2014 [facility] Diastolic (mm Hg) 85 04/04/2014 [facility] Respitory Rate 18 04/04/2014 [facility] Heart Rate 86 04/04/2014 [facility] Systolic (mm Hg) 135 04/04/2014 [facility] Diastolic (mm Hg) 80 04/04/2014 [facility] Respitory Rate 16 04/04/2014 [facility] Heart Rate 85 04/04/2014 [facility] Temperature Oral (F) 98.4 F 04/04/2014 [facility] Heart Rate 83 04/04/2014 [facility] Respitory Rate 18 04/04/2014 [facility] Systolic (mm Hg) 138 04/04/2014 [facility] Diastolic (mm Hg) 97 04/04/2014 [facility] Height 180.34 cm 04/04/2014 [facility] Weight 84.091 04/04/2014 [facility] BMI Calculated 25.86 04/04/2014 [facility] Height 180.34 cm 01/29/2011 [facility] Weight 80.455 01/29/2011 [facility] Encounters Location Location Encounter Encounter Reason Attending ADM DC Status Source Details Type Number For Provider Date Date Visit Emergency [id number] DR SAMMIE SPENCER 01/08 01/08 Active [facility] 1 BARNARD /2010 [facility] [id number] MS CORRALES 01/29 Active [facility] [id number] Mario 04/04 04/04 [facility] 4 [facility] Inpatient [id number] Jacek 08/05 08/10 [facility] 5 [facility] Outpatient [id number] LORENE DIEUDONNE 08/07 [facility] Office [id number] Lorene Dieudonne, 08/15 08[id number] General [facility] [address] [place] [address] Inpatient [id number] Jacek 08/26 08/30 [facility] 6 [facility] [place] [id number] Amor Wrenf 03/31 03/31 [facility] [place] [facility] Outpatient [id number] SEAN DIOR 04/09 [facility] Outpt Diag [id number] Sean Dior 04/16 04/17 [facility] Phone [phone] 06/08 06/10 [facility] Outpatient [id number] CHACE SHI 06/17 [facility] [place] [facility] Outpatient [id number] Sean Dior 06/17 06/18 [facility] Phone [phone] 06/22 06/24 [facility] Message Neuro [facility] Phone [phone] 06/22 06/24 [facility] Message Neuro [facility] Phone [phone] 07/21 07/23 [facility] Message Neuro [facility] Phone [phone] 08/01 08/03 [facility] Message Neuro [facility] Phone [phone] 08/03 08/05 [facility] Message Neuro [facility] Phone [phone] 08/05 08/07 [facility] Phone [phone] 08/05 08/07 [facility] [id number] Pat 08/06 08/07 [place] 0 [facility] Observation [id number] Gen[place] 08/07 08/08 [place] 2 [place] Spine Phone [phone] 08/08 08/10 [facility] Message Neuro [facility] Phone [phone] 08/08 08/10 [facility] Outpatient [id number] CHACE SHI 08/09 [facility] [place] [facility] [id number] Sean Dior 08/09 08/10 [facility] [id number] Esperanza 08/09 08/12 [facility] [address] [facility] Spine Phone [phone] 08/12 08/14 [facility] Message Neuro [facility] Spine Phone [phone] 08/15 08/17 [facility] Message Neuro Outpatient [id number] CHACE SHI 08/16 Active [facility] Spine Ambulatory [id number] Sean Dior 08/16 08/16 [facility] Pre-Reg Neuro Outpatient [id number] CHACE SHI 09/23 Active [facility] Outpatient [id number] CHACE SHI 09/30 Active [facility] Outpatient [id number] CHACE YURIDIA 11/30 Active [facility] Outpatient [id number] CHACE SHI 01/03 Active [facility] Outpatient [id number] CHACE NEYCATHERINE 03/08 Active [facility] Procedures Procedure Code Date Perfomer Comments Source Spinal puncture, [address] [facility] lumbar, [address] Spinal operation [id number] [facility] 5 Spinal operation [id number] [facility] 5 Spinal operation [id number] [facility] 5 Spinal operation [id number] [address] Spinal operation [id number] [facility] [id number] [facility] [id number] [facility]ide[facility] [id number] [facility] section [id number] [facility]sterectomy [id number] [facility] Appendectomy [id number] [facility] section [id number] [facility] Cholecystectomy [id number] [facility] Hysterectomy [id number] [facility] Thyroidectomy [id number] [facility] Appendectomy [id number] [facility] section [id number] [facility] Cholecystectomy [id number] [facility] Hysterectomy [id number] [facility] Thyroidectomy [id number] [facility] Appendectomy [id number] [facility] section [id number] [facility] Cholecystectomy [id number] [facility] Hysterectomy [id number] [facility] Thyroidectomy [id number] [facility] Appendectomy [id number] [facility] Cholecystectomy [id number] [facility] Thyroidectomy [id number] [facility]
--- OUTSIDE RECORDS SUMMARY | 2018-01-12 10:58 | XMS REPORT | CCD ---
:1980 Author Organization [facility] Care Team Providers Name Role Phone Al [...]
--- OUTSIDE RECORDS SUMMARY | 2018-01-12 11:00 | XMS REPORT ---
:1980 [facility] [address] Graham [address] [place] [address] Care Team Providers Name Role Phone Unavailable [...]
--- OUTSIDE RECORDS SUMMARY | 2018-01-12 11:00 | XMS REPORT | Continuity of Care Document ---
:1980 Author Organization [facility] Care Team Providers Name Role Phone MD Lund Hoang Unavailable Unavailable Insurance Providers Payer name Policy type / Coverage Policy ID Covered constitution party ID Policy Williamson type AETNA - CHOICE (POS II) AETNA - CHOICE (POS II) Encounters Encounter Performer Location Date Office Visit Terry Lund MD [facility] General Aug 15, 2014 Surgery [address] [...]
[2018-01-12] MEDS ORDERED: MORPHINE 4 MG/ML SYR ONE ×2 (11:18→12:05)
[2018-01-12] MEDS ORDERED: ONDANSETRON 4 MG/2 ML VIAL ONE ×2 (11:18→12:05)
[2018-01-12 11:25] LABS: Absolute Lymphocytes (CBC) 2.5 K/uL (0.7-4.9); Absolute Monocytes 0.3 K/uL (0.1-1.3); Absolute Neutrophil 2.8 K/uL (1.8-8.0); Basophils % 0.7 % (0-1.3); Eosinophils % 1.2 % (0-4.4); Hematocrit 38.2 % (36.0-45.0); Lymphocytes % 43.4 % (15.3-44.8); MCH 29.1 pg (27.0-35.0); MCV 86.9 fL (80-100); MPV 9.8 fL (7.6-11.3); Monocytes % 5.8 % (3.3-12.3); RBC Red Blood Cell Count 4.39 M/uL (3.86-4.86)
[2018-01-12 11:41] LABS: ALT/SGPT 21 U/L (12-78); AST/SGOT 10 U/L (15-37); Albumin 3.7 g/dL (3.4-5.0); Alkaline Phosphatase 95 U/L (45-117); BUN Blood Urea Nitrogen 7 mg/dL (7-18); Bicarbonate 28 mmol/L (21-32); Bilirubin Direct < 0.1 mg/dL (0-0.2); Bilirubin Total 0.2 mg/dL (0.2-1.0); Glucose Level 110 mg/dL (74-106); Lipase 99 U/L (73-393); Potassium 3.9 mmol/L (3.5-5.1); Protein, Total 7.5 g/dL (6.4-8.2); Sodium Level 140 mmol/L (136-145)
[2018-01-12] MEDS ORDERED: PANTOPRAZOLE 40 MG INJ ONE (12:05)
--- NOTE | 2018-01-12 12:22 | ER ---
Nurse's Notes [facility] Name: Luis Felipe Nova Age: 37 yrs Sex: Female : 1980 Arrival Date: 01/12/2018 Time: 10:49 Bed 7 Private MD: None, None Diagnosis: Upper abdominal pain, unspecified Presentation: 01/12 10:52 Presenting complaint: Patient states: Right sided abd pain for the last week, seen here la1 and worked up but couldn't find anything, pain is worse today. Transition of care: patient was not received from another setting of care. Onset of symptoms was January 12, 2018. Risk Assessment: Do you want to hurt yourself or someone else? Patient reports no desire to harm self or others. Initial Sepsis Screen: Does the patient meet any 2 criteria? No. Patient's initial sepsis screen is negative. Does the patient have a suspected source of infection? No. Patient's initial sepsis screen is negative. Care prior to arrival: None. 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 - Social history:: Smoking status: Patient/guardian denies using tobacco. - Ebola Screening: : No symptoms or risks identified at this time. Screenin:59 Abuse screen: Denies threats or abuse. Denies injuries from another. Nutritional sv screening: No deficits noted. Tuberculosis screening: No symptoms or risk factors identified. Fall Risk None identified. Assessment: 11:00 General: Appears uncomfortable, well developed, Behavior is calm, cooperative, sv appropriate for age. Pain: Complains of pain in epigastric area, anterior aspect of right lateral abdomen, right upper quadrant and right lower quadrant Pain currently is 8 out of 10 on a pain scale. Is. Neuro: Level of Consciousness is awake, alert, obeys commands, Oriented to person, place, time, situation, Moves all extremities. Full function Gait is steady. Respiratory: Respiratory effort is even, unlabored, Respiratory pattern is regular, symmetrical. GI: Abdomen is round Abd is soft X 4 quads Abdomen is tender to palpation in epigastric area, right upper quadrant and right lower quadrant. : Denies burning with urination, pain urinary frequency, urgency. Derm: Skin is pink, warm \\T\\ dry. 11:52 Reassessment: pt called to nurse's station and reports she is "still having a lot of iw pain, and a lot of pressure", MANUEL Rodriguez notified. 12:05 Reassessment: Patient appears in no apparent distress at this time. No changes from sv previously documented assessment. Patient and/or family updated on plan of care and expected duration. Pain level reassessed. Patient is alert, oriented x 3, equal unlabored respirations, skin warm/dry/pink. Vital Signs: 10:54 BP 185 / 99; Pulse 99; Resp 16; Temp 98.4; Pulse Ox 98% on R/A; Weight 106.59 kg; la1 Height 5 ft. 11 in. (180.34 cm); 11:00 BP 134 / 84; Pulse 107; Resp 16; Pulse Ox 96% on R/A; sv 11:30 BP 133 / 98; Pulse 102; Resp 18; Pulse Ox 97% on R/A; sv 12:05 BP 133 / 90; Pulse 109; Resp 18; Pulse Ox 96% ; sv 10:54 Body Mass Index 32.78 (106.59 kg, 180.34 cm) la1 ED Course: 10:49 Patient arrived in ED. sb2 10:49 None, None is Private Physician. sb2 10:51 Jennifer Licona, [facility] kb 10:51 Justice Cramer MD is Attending Physician. kb 10:53 Triage completed. la1 10:54 Arm band placed on right wrist. la1 10:58 Jennifer Nick, KEESHA is Primary Nurse. sv 10:59 Patient has correct armband on for positive identification. Placed in gown. Bed in low sv position. Door closed. Head of bed elevated. 11:05 Initial lab(s) drawn, by me, sent to lab. Inserted saline lock: 20 gauge in right sv antecubital area, using aseptic technique. Blood collected. Flushed right antecubital with 5 ml normal saline. 12:30 No provider procedures requiring assistance completed. IV discontinued, intact, sv bleeding controlled, No redness/swelling at site. Pressure dressing applied. Administered Medications: 11:12 Drug: Zofran 4 mg Route: IVP; Site: right antecubital; sv 11:30 Follow up: Response: No adverse reaction sv 11:14 Drug: morphine 4 mg Route: IVP; Site: right antecubital; sv 11:30 Follow up: Response: No adverse reaction sv 12:06 Drug: Zofran 4 mg Route: IVP; Site: right antecubital; sv 12:29 Follow up: Response: No adverse reaction sv 12:08 Drug: morphine 4 mg Route: IVP; Site: right antecubital; sv 12:29 Follow up: Response: No adverse reaction sv 12:10 Drug: ProTONIX 40 mg Route: IVP; Site: right antecubital; sv 12:29 Follow up: Response: No adverse reaction sv Outcome: 12:21 Discharge ordered by . kb 12:30 Discharged to home ambulatory, with friend, Friend driving pt home. sv 12:30 Condition: stable 12:30 Discharge instructions given to patient, Instructed on discharge instructions, follow up and referral plans. medication usage, Demonstrated understanding of instructions, follow-up care, medications, Prescriptions given X 1. 12:30 Patient left the ED. sv Signatures: Dong López jb1 Jennifer Licona, BIKE SHOP MANAGER-C BIKE SHOP MANAGER-Jennifer Kothari RN RN sv Olga Lidia Amato RN RN iw Juan Jose Ordoñez RN RN la1 Rossy Junior2 Corrections: (The following items were deleted from the chart) 12:15 11:57 BP 133 / 98; Pulse 102bpm; Resp 18bpm; Pulse Ox 97% RA; jb1 sv
--- NOTE | 2018-01-12 12:23 | EDPHYS ---
Physician Documentation [facility] Name: Luis Felipe Nova Age: 37 yrs Sex: Female : 1980 Arrival Date: 01/12/2018 Time: 10:49 Bed 7 Private MD: None, None ED Physician Justice Cramer HPI: 01/12 12:24 This 37 yrs old Female presents to ER via Ambulatory with complaints of SIDE kb PAIN. 12:24 The patient presents with abdominal pain in the right upper quadrant. Onset: The kb symptoms/episode began/occurred 1 week(s) ago. The symptoms radiate to. Associated signs and symptoms: Pertinent positives: nausea. The symptoms are described as constant. Modifying factors: The symptoms are alleviated by nothing, the symptoms are aggravated by nothing. Severity of pain: At its worst the pain was moderate in the emergency department the pain is unchanged. The patient has not experienced similar symptoms in the past. The patient has been recently seen at the [facility] Emergency Department, this week. Pt reports right flank pain that radiates to RUQ for one week. Was seen by PCP and had US of bladder and kidneys done with normal results. Was seen here 2 days ago for same complaint, had labs and CT done with normal results. . 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 - Social history:: Smoking status: Patient/guardian denies using tobacco. - Ebola Screening: : No symptoms or risks identified at this time. ROS: 12:02 Constitutional: Negative for fever, chills, and weight loss, ENT: Negative for injury, kb pain, and discharge, Neck: Negative for injury, pain, and swelling, Cardiovascular: Negative for chest pain, palpitations, and edema, Respiratory: Negative for shortness of breath, cough, wheezing, and pleuritic chest pain, Back: Negative for injury and pain, : Negative for injury, bleeding, discharge, and swelling, MS/Extremity: Negative for injury and deformity, Skin: Negative for injury, rash, and discoloration, Neuro: Negative for headache, weakness, numbness, tingling, and seizure. 12:02 Abdomen/GI: Positive for abdominal pain, nausea, Negative for vomiting, diarrhea, constipation, abdominal cramps, abdominal distension, anorexia. Exam: 12:02 Constitutional: This is a well developed, well nourished patient who is awake, alert, kb and in no acute distress. Head/Face: Normocephalic, atraumatic. Chest/axilla: Normal chest wall appearance and motion. Nontender with no deformity. No lesions are appreciated. Cardiovascular: Regular rate and rhythm with a normal S1 and S2. No gallops, murmurs, or rubs. Normal PMI, no JVD. No pulse deficits. Respiratory: Lungs have equal breath sounds bilaterally, clear to auscultation and percussion. No rales, rhonchi or wheezes noted. No increased work of breathing, no retractions or nasal flaring. Back: No spinal tenderness. No costovertebral tenderness. Full range of motion. Skin: Warm, dry with normal turgor. Normal color with no rashes, no lesions, and no evidence of cellulitis. MS/ Extremity: Pulses equal, no cyanosis. Neurovascular intact. Full, normal range of motion. Neuro: Awake and alert, GCS 15, oriented to person, place, time, and situation. Cranial nerves II-XII grossly intact. Motor strength 5/5 in all extremities. Sensory grossly intact. Cerebellar exam normal. Normal gait. 12:02 Abdomen/GI: Inspection: abdomen appears normal, Bowel sounds: normal, in all quadrants, Palpation: soft, in all quadrants, nontender, in the left upper quadrant, right lower quadrant and left lower quadrant, moderate abdominal tenderness, in the right upper quadrant. Vital Signs: 10:54 BP 185 / 99; Pulse 99; Resp 16; Temp 98.4; Pulse Ox 98% on R/A; Weight 106.59 kg; la1 Height 5 ft. 11 in. (180.34 cm); 11:00 BP 134 / 84; Pulse 107; Resp 16; Pulse Ox 96% on R/A; sv 11:30 BP 133 / 98; Pulse 102; Resp 18; Pulse Ox 97% on R/A; sv 12:05 BP 133 / 90; Pulse 109; Resp 18; Pulse Ox 96% ; sv 10:54 Body Mass Index 32.78 (106.59 kg, 180.34 cm) la1 MDM: 10:55 Patient medically screened. kb 11:57 Data reviewed: vital signs, nurses notes. Data interpreted: Pulse oximetry: on room air kb is 96 %. Interpretation: normal. 12:18 Counseling: I had a detailed discussion with the patient and/or guardian regarding: the kb historical points, exam findings, and any diagnostic results supporting the discharge/admit diagnosis, lab results, the need for outpatient follow up, a senior materials planner, to return to the emergency department if symptoms worsen or persist or if there are any questions or concerns that arise at home. 01/12 11:03 Order name: Basic Metabolic Panel; Complete Time: 11:43 kb 01/12 11:03 Order name: CBC with Diff; Complete Time: 11:34 kb 01/12 11:03 Order name: Hepatic Function; Complete Time: 11:43 kb 01/12 11:03 Order name: Lipase; Complete Time: 11:43 kb 01/12 11:03 Order name: IV Saline Lock; Complete Time: 11:17 kb 01/12 11:03 Order name: Labs collected and sent; Complete Time: 11:17 kb Administered Medications: 11:12 Drug: Zofran 4 mg Route: IVP; Site: right antecubital; sv 11:30 Follow up: Response: No adverse reaction sv 11:14 Drug: morphine 4 mg Route: IVP; Site: right antecubital; sv 11:30 Follow up: Response: No adverse reaction sv 12:06 Drug: Zofran 4 mg Route: IVP; Site: right antecubital; sv 12:29 Follow up: Response: No adverse reaction sv 12:08 Drug: morphine 4 mg Route: IVP; Site: right antecubital; sv 12:29 Follow up: Response: No adverse reaction sv 12:10 Drug: ProTONIX 40 mg Route: IVP; Site: right antecubital; sv 12:29 Follow up: Response: No adverse reaction sv Disposition: 17:58 Co-signature as Attending Physician, Justice Cramer MD. rn Disposition: 01/12/18 12:21 Discharged to Home. Impression: Upper abdominal pain, unspecified. - Condition is Stable. - Discharge Instructions: Flank Pain, Adult, Abdominal Pain, Adult, [id number]. - Prescriptions for Zofran 4 mg Oral Tablet - take 1 tablet by ORAL route every 6 hours As needed; 20 tablet. - Medication Reconciliation Form, Thank You Letter, Antibiotic Education, Prescription Opioid Use form. - Follow up: Emergency Department; When: As needed; Reason: Worsening of condition. Follow up: Private Physician; When: 2 - 3 days; Reason: Recheck today's complaints, Continuance of care, Re-evaluation by your physician. Signatures: Dispatcher [employer] EDMS Jennifer Licona, LOCKER ATTENDANT-C LOCKER ATTENDANT-Jennifer Kothari, RN RN sv Justice Cramer MD MD rn Attema, Lee, RN RN la1 Corrections: (The following items were deleted from the chart) 12:30 12:21 01/12/2018 12:21 Discharged to Home. Impression: Upper abdominal pain, sv unspecified. Condition is Stable. Forms are Medication Reconciliation Form, Thank You Letter, Antibiotic Education, Prescription Opioid Use. Follow up: Emergency Department; When: As needed; Reason: Worsening of condition. Follow up: Private Physician; When: 2 - 3 days; Reason: Recheck today's complaints, Continuance of care, Re-evaluation by your physician. kb
[2018-01-12 12:41] VITALS: TEMP 98.4
[2018-01-12 12:44] VITALS: BP 133/90; O2SAT 96
== END 2018-01-12 12:30 | disposition home or self-care (01) ==
LOC: ER 10:47
DX: R10.11 Right upper quadrant pain (principal); Z88.2 Allergy status to sulfonamides; Z88.8 Allergy status to other drugs, medicaments and biological substances
CPT/HCPCS: 36415; 80048; 80076; 83690; 85025; 96374; 96375; 99284; C9113; J2405

== ENCOUNTER 2019-04-13 09:28 | Emergency (ER) | payer OTHER ==
--- OUTSIDE RECORDS SUMMARY | 2019-04-13 09:33 | XMS REPORT ---
:1980 [facility] Address [address] [place] [address] Dr. Graham [address] [place] [address] Care Team Providers Name Role Phone Unavailable Unavailable Unavailable Problems This patient has no known problems. Allergies, Adverse Reactions, Alerts This patient has no known allergies or adverse reactions. Medications This patient has no known medications. Encounters Start End Encounter Admission Attending Care Care Encounter Date/Time Date/Time Type Type Clinicians Facility Department ID 2019-04-11 2019-04-11 Emergency E [facility] [id number] 12:15:00 12:15:00 2018-09-12 2018-09-12 Outpatient [facility] [id number] 06:29:00 06:29:00 Results Test Description Test Time Test Comments [...]
[2019-04-13] MEDS ORDERED: KETOROLAC 30 MG/ML INJ ONE (11:12)
[2019-04-13] MEDS ORDERED: PROMETHAZINE INJ 25 MG/ML AMP ONE (11:12)
[2019-04-13] MEDS ORDERED: NA CHLORIDE 0.9% 1,000 ML ONE (11:12)
[2019-04-13] MEDS ORDERED: NA CHLORIDE 0.9% 100 ML IV ONE ×2 (11:12→13:26)
[2019-04-13 11:34] LABS: Absolute Lymphocytes (CBC) 2.4 K/uL (0.7-4.9); Basophils % 0.4 % (0-1.3); Hematocrit 37.9 % (36.0-45.0); Lymphocytes % 33.4 % (15.3-44.8); MPV 9.4 fL (7.6-11.3); RBC Red Blood Cell Count 4.26 M/uL (3.86-4.86)
[2019-04-13 11:54] LABS: Albumin 3.3 g/dL (3.4-5.0); Bilirubin Total 0.2 mg/dL (0.2-1.0); Potassium 3.7 mmol/L (3.5-5.1); Protein, Total 7.4 g/dL (6.4-8.2); Thyroid Stimulating Hormone 1.62 uIU/mL (0.360-3.740)
[2019-04-13 12:32] LABS: Urine Blood NEGATIVE (NEG); Urine Glucose NEGATIVE (NEG); Urine Protein 1+ (NEG); Urine pH 5.5 (5.0-7.0)
--- NOTE | 2019-04-13 12:54 | RAD REPORT ---
EXAM DESCRIPTION: CTHead angio04/13/2019 12:42 pm CLINICAL HISTORY: Headache COMPARISON: None TECHNIQUE: CT angiogram of the head was obtained. 3D MIPS reconstruction performed. All CT scans are performed using dose optimization technique as appropriate and may include automated exposure control or mA/KV adjustment according to patient size. FINDINGS: The basilar, internal carotid, anterior cerebral, middle cerebral and posterior cerebral a rteries are normal caliber. An aneurysm is not seen. A significant stenosis is not noted. Fever origin left posterior cerebral artery An empty sella turcica is seen. IMPRESSION: Unremarkable CT angiogram head.
--- NOTE | 2019-04-13 12:56 | RAD REPORT ---
EXAM DESCRIPTION: CT - Facial Bones W/ Mpr - 04/13/2019 12:43 pm CLINICAL HISTORY: Headache/facial pain COMPARISON: None TECHNIQUE: Computed axial tomography of the face was obtained. Coronal and sagittal reconstruction w as performed. All CT scans are performed using dose optimization technique as appropriate and may include automated exposure control or mA/KV adjustment according to patient size. FINDINGS: Fluid is present within the right maxillary sinus. Mild mucoperiosteal thickening involves the right maxillary sinus. Mild mucoperiosteal thickening involves the sphenoid sinus The globes are normal size and density. Subcutaneous tissues appear unremarkable. IMPRESSION: Fluid within the right maxillary sinus indicative of acute sinusitis
--- NOTE | 2019-04-13 13:04 | EDPHYS ---
Physician Documentation [facility] Name: Luis Felipe Nova Age: 39 yrs Sex: Female : 1980 Arrival Date: 04/13/2019 Time: 09:37 Bed 17 Private MD: TOR Physician Sundeep Galvan HPI: 04/12 10:56 This 39 yrs old Female presents to ER via Ambulatory with complaints of guero Headache, Neck Pain, <24hrs Old. 10:56 The patient complains of pain to the top of head, forehead, left frontal area, left guero side of the back of head, left occipital area, left base of the skull, right frontal area, right side of the back of head, right occipital area and right base of the skull. The patient describes the headache as aching. Onset: The symptoms/episode began/occurred 14 day(s) ago. Associated signs and symptoms: Pertinent positives: nausea, sinus congestion, sinus tenderness. Severity of symptoms: At its worst the pain was mild, moderate, in the emergency department the pain is unchanged. Headache History: The patient has had previous headaches and this one is similar to previous episodes. The symptoms are alleviated by nothing. the symptoms are aggravated by nothing. The patient has not experienced similar symptoms in the past. 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 - Social history:: Smoking status: Patient denies any tobacco usage or history of. . - Family history:: not pertinent. ROS: 10:56 Constitutional: Negative for fever, chills, and weight loss, Eyes: Negative for injury, guero pain, redness, and discharge, ENT: Negative for injury, pain, and discharge, Neck: Negative for injury, pain, and swelling, Cardiovascular: Negative for chest pain, palpitations, and edema, Respiratory: Negative for shortness of breath, cough, wheezing, and pleuritic chest pain, Abdomen/GI: Negative for abdominal pain, nausea, vomiting, diarrhea, and constipation, Back: Negative for injury and pain, : Negative for injury, bleeding, discharge, and swelling, MS/Extremity: Negative for injury and deformity, Skin: Negative for injury, rash, and discoloration, Neuro: Negative for headache, weakness, numbness, tingling, and seizure, Psych: Negative for depression, anxiety, suicide ideation, homicidal ideation, and hallucinations, Allergy/Immunology: Negative for hives, rash, and allergies, Endocrine: Negative for neck swelling, polydipsia, polyuria, polyphagia, and marked weight changes, Hematologic/Lymphatic: Negative for swollen nodes, abnormal bleeding, and unusual bruising. Exam: 10:56 Constitutional: This is a well developed, well nourished patient who is awake, alert, guero and in no acute distress. Head/Face: Normocephalic, atraumatic. Eyes: Pupils equal round and reactive to light, extra-ocular motions intact. Lids and lashes normal. Conjunctiva and sclera are non-icteric and not injected. Cornea within normal limits. Periorbital areas with no swelling, redness, or edema. ENT: Nares patent. No nasal discharge, no septal abnormalities noted. Tympanic membranes are normal and external auditory canals are clear. Oropharynx with no redness, swelling, or masses, exudates, or evidence of obstruction, uvula midline. Mucous membranes moist. Neck: Trachea midline, no thyromegaly or masses palpated, and no cervical lymphadenopathy. Supple, full range of motion without nuchal rigidity, or vertebral point tenderness. No Meningismus. Chest/axilla: Normal chest wall appearance and motion. Nontender with no deformity. No lesions are appreciated. Cardiovascular: Regular rate and rhythm with a normal S1 and S2. No gallops, murmurs, or rubs. Normal PMI, no JVD. No pulse deficits. Respiratory: Lungs have equal breath sounds bilaterally, clear to auscultation and percussion. No rales, rhonchi or wheezes noted. No increased work of breathing, no retractions or nasal flaring. Abdomen/GI: Soft, non-tender, with normal bowel sounds. No distension or tympany. No guarding or rebound. No evidence of tenderness throughout. Back: No spinal tenderness. No costovertebral tenderness. Full range of motion. Skin: Warm, dry with normal turgor. Normal color with no rashes, no lesions, and no evidence of cellulitis. MS/ Extremity: Pulses equal, no cyanosis. Neurovascular intact. Full, normal range of motion. Neuro: Awake and alert, GCS 15, oriented to person, place, time, and situation. Cranial nerves II-XII grossly intact. Motor strength 5/5 in all extremities. Sensory grossly intact. Cerebellar exam normal. Normal gait. Psych: Awake, alert, with orientation to person, place and time. Behavior, mood, and affect are within normal limits. 10:56 Neck: Thyroid: appears normal, no acute changes, ROM/movement: is normal, no acute changes, limited range of motion, is not appreciated, Meningeal signs: are not present, Kernig's sign is negative, Brudzinski's sign is negative. Vital Signs: 09:54 BP 123 / 72; Pulse 97; Resp 16; Temp 98.3; Pulse Ox 100% on R/A; Weight 100.7 kg; iw Height 5 ft. 11 in. (180.34 cm); Pain 7/10; 10:34 BP 126 / 80; Pulse 83; Resp 15; Pulse Ox 100% on R/A; mh5 11:16 BP 126 / 80; Pulse 78; Resp 18; Pulse Ox 97% on R/A; aj1 12:19 BP 115 / 75; Pulse 71; Resp 18; Pulse Ox 100% on R/A; aj1 09:54 Body Mass Index 30.96 (100.70 kg, 180.34 cm) iw MDM: 09:39 Patient medically screened. [facility] 10:58 Data reviewed: vital signs, nurses notes, lab test result(s), radiologic studies, CT [facility] scan. 04/12 10:34 Order name: CBC with Diff [facility] 04/12 10:34 Order name: Comprehensive Metabolic Panel [facility] 04/12 10:34 Order name: Urine Culture [facility] 04/12 10:34 Order name: Sed Rate [facility] 04/12 10:34 Order name: TSH [facility] 04/12 11:02 Order name: Urine Dipstick--Ancillary (enter results) 04/12 10:34 Order name: CT Head Angio [facility] 04/12 11:02 Order name: Urine --Ancillary (enter results) 04/12 11:36 Order name: CBC with Automated Diff; Complete Time: 12:54 EDOR 04/12 11:55 Order name: Comprehensive Metabolic Panel; Complete Time: 12:54 EDOR 04/12 11:55 Order name: Thyroid Stimulating Hormone; Complete Time: 12:54 EDOR 04/12 12:03 Order name: Sedimentation Rate, Westergren; Complete Time: 12:54 EDOR 04/12 12:33 Order name: Urine --Ancillary; Complete Time: 12:54 EDOR 04/12 12:33 Order name: Urine Dipstick-Ancillary; Complete Time: 12:54 EDOR 04/12 10:34 Order name: Urine Dipstick-Ancillary (obtain specimen); Complete Time: 10:55 [facility] 04/12 10:34 Order name: Urine Test (obtain specimen); Complete Time: 10:55 [facility] 04/12 10:56 Order name: CT Facial Bones W/O Con [facility] 04/12 13:06 Order name: CT EDOR 04/12 13:06 Order name: CT EDOR Administered Medications: 11:08 CANCELLED (Duplicate Order): Zofran (Ondansetron) 4 mg IVP once; over 2 minutes [facility] 11:14 Drug: NS 0.9% 1000 ml Route: IV; Rate: 1 bolus; Site: right antecubital; aj1 11:14 Drug: TORadol 30 mg Route: IVP; Site: right antecubital; aj1 11:14 Drug: Phenergan 12.5 mg Route: IVP; Site: right antecubital; aj1 13:19 Follow up: Response: Marked relief of symptoms bp 13:20 Drug: Rocephin 1 grams Route: IV; Rate: per protocol; Site: right antecubital; bp 13:50 Follow up: Response: No adverse reaction; IV Status: Completed infusion; IV Intake: [id number] Disposition: 04/13/19 13:02 Discharged to Home. Impression: Acute maxillary sinusitis, unspecified, Headache. - Condition is Stable. - Discharge Instructions: General Headache Without Cause, Sinusitis, Adult, General Headache Without Cause, [id number]. - Prescriptions for Augmentin 875- 125 mg Oral Tablet - take 1 tablet by ORAL route every 12 hours for 10 days; 20 tablet. Ibuprofen 600 mg Oral Tablet - take 1 tablet by ORAL route every 8 hours As needed take with food; 30 tablet. Zofran 4 mg Oral Tablet - take 1 tablet by ORAL route every 12 hours As needed; 20 tablet. - Medication Reconciliation Form, Thank You Letter, Antibiotic Education, Prescription Opioid Use form. - Follow up: Private Physician; When: 2 - 3 days; Reason: Recheck today's complaints, Continuance of care, Re-evaluation by your physician. Follow up: Jennifer Grande MD; When: 2 - 3 days; Reason: Recheck today's complaints, Continuance of care, Re-evaluation by your physician. - Problem is new. - Symptoms have improved. Signatures: Dispatcher [employer] EDKaleigh Howe RN RN aj1 Sundeep Galvan MD MD cha Williams, Irene, RN RN iw Lucas Looney RN RN bp Corrections: (The following items were deleted from the chart) 11:08 10:34 Zofran (Ondansetron) 4 mg IVP once; over 2 minutes ordered. guero jack 13:52 13:02 04/13/2019 13:02 Discharged to Home. Impression: Acute maxillary sinusitis, aj1 unspecified; Headache. Condition is Stable. Forms are Medication Reconciliation Form, Thank You Letter, Antibiotic Education, Prescription Opioid Use. Follow up: Private Physician; When: 2 - 3 days; Reason: Recheck today's complaints, Continuance of care, Re-evaluation by your physician. Follow up: Jennifer Grande; When: 2 - 3 days; Reason: Recheck today's complaints, Continuance of care, Re-evaluation by your physician. Problem is new. Symptoms have improved. guero
--- NOTE | 2019-04-13 13:04 | ER ---
Nurse's Notes [facility] Name: Luis Felipe Nova Age: 39 yrs Sex: Female : 1980 Arrival Date: 04/13/2019 Time: 09:37 Bed 17 Private MD: Diagnosis: Acute maxillary sinusitis, unspecified;Headache Presentation: 04/12 09:54 Chief complaint: Patient states: pt has been dealing with sinus pain and neck pain for iw 3 weeks, has been on 2 rounds of abx Augmentin and Levaquin , has hx of intracranial hypertension but had her stent evaluated and was told it was fine, pt denies fever , c/o pain in her joints and fatigue, has mild sensitivity to light , also has been on steroids. Coronavirus screen: The patient has NOT traveled to a country currently being monitored by the CDC within the last 14 days. Proceed with normal triage procedures. The patient has NOT had contact with any known and/or suspected case of coronavirus. Proceed with normal triage procedures. Ebola Screen: Patient negative for fever greater than or equal to 101.5 degrees Fahrenheit, and additional compatible Ebola Virus Disease symptoms Patient denies exposure to infectious person. Patient denies travel to an Ebola-affected area in the 21 days before illness onset. No symptoms or risks identified at this time. Initial Sepsis Screen: Does the patient meet any 2 criteria? No. Patient's initial sepsis screen is negative. Does the patient have a suspected source of infection? No. Patient's initial sepsis screen is negative. Risk Assessment: Do you want to hurt yourself or someone else? Patient reports no desire to harm self or others. 09:54 Method Of Arrival: Ambulatory iw 09:54 Acuity: BRIANNA 3 iw ON LINE CSR: 09:59 LMP N/A - Hysterectomy iw Historical: - Allergies: :59 Reglan; iw 09:59 Sulfa (Sulfonamide Antibiotics); iw - Home Meds: :59 Synthroid Oral [Active]; Premarin Oral [Active]; Lexapro Oral [Active]; Aspirin Oral iw [Active]; Claritin Oral [Active]; - PMHx: :59 "cysts on thyroid/possible cancer on thyroid"; Hashimotos; Endometrosis; Migraines; iw - PSHx: :59 Cholecystectomy; Thyroidectomy; Appendectomy; Hysterectomy; spinal cyst removed; iw - Immunization history:: Adult Immunizations up to date. - Social history:: Smoking status: Patient denies any tobacco usage or history of. . - Family history:: not pertinent. Screenin:16 Abuse screen: Denies threats or abuse. Denies injuries from another. Nutritional aj1 screening: No deficits noted. Tuberculosis screening: No symptoms or risk factors identified. 13:51 Fall Risk None identified. aj1 Assessment: 11:16 General: Appears in no apparent distress. uncomfortable, Behavior is calm, cooperative, aj1 appropriate for age. Pain: Complains of pain in neck and right base of the skull and right occipital area and right side of the back of head and right frontal area and left base of the skull and left occipital area and left side of the back of head and left frontal area and forehead and top of head Pain does not radiate. Neuro: Level of Consciousness is awake, alert, obeys commands, Oriented to person, place, time, situation, Moves all extremities. Speech is normal, Facial symmetry appears normal, Reports headache. Cardiovascular: Patient's skin is warm and dry. Respiratory: Airway is patent Respiratory effort is even, unlabored, Respiratory pattern is regular, symmetrical. GI: No signs and/or symptoms were reported involving the gastrointestinal system. : No signs and/or symptoms were reported regarding the genitourinary system. EENT: No signs and/or symptoms were reported regarding the EENT system. Derm: No signs and/or symptoms reported regarding the dermatologic system. Skin is pink, warm \\T\\ dry. normal. Musculoskeletal: No signs and/or symptoms reported regarding the musculoskeletal system. Circulation, motion, and sensation intact. 12:18 Reassessment: Patient appears in no apparent distress at this time. No changes from aj1 previously documented assessment. Patient and/or family updated on plan of care and expected duration. Pain level reassessed. Patient is alert, oriented x 3, equal unlabored respirations, skin warm/dry/pink. 12:30 Reassessment: Patient transported to CT via stretcher. aj1 13:20 Reassessment: D/C ON HOLD FOR ABX. bp Vital Signs: 09:54 BP 123 / 72; Pulse 97; Resp 16; Temp 98.3; Pulse Ox 100% on R/A; Weight 100.7 kg; iw Height 5 ft. 11 in. (180.34 cm); Pain 7/10; 10:34 BP 126 / 80; Pulse 83; Resp 15; Pulse Ox 100% on R/A; mh5 11:16 BP 126 / 80; Pulse 78; Resp 18; Pulse Ox 97% on R/A; aj1 12:19 BP 115 / 75; Pulse 71; Resp 18; Pulse Ox 100% on R/A; aj1 09:54 Body Mass Index 30.96 (100.70 kg, 180.34 cm) ED Course: 09:37 Patient arrived in ED. ag5 09:38 Sundeep Galvan MD is Attending Physician. guero 09:57 Triage completed. iw 09:59 Arm band placed on. iw 10:35 Patient has correct armband on for positive identification. Bed in low position. Call [facility] light in reach. Side rails up X 1. Adult w/ patient. Warm blanket given. Pulse ox on. NIBP on. 10:36 Kaleigh Mcgowan, KEESHA is Primary Nurse. aj1 11:00 Urine Culture Sent. 5 11:01 Urine collected: clean catch specimen, tea colored. [facility] 11:05 Initial lab(s) drawn, by nh, sent to lab. Inserted saline lock: [address] [facility] antecubital area, using aseptic technique. Blood collected. 11:16 No provider procedures requiring assistance completed. 1 13:01 Jennifer Grande MD is Referral Physician. guero 13:51 IV discontinued, intact, bleeding controlled, No redness/swelling at site. Pressure 1 dressing applied. Administered Medications: 11:08 CANCELLED (Duplicate Order): Zofran (Ondansetron) 4 mg IVP once; over 2 minutes guero 11:14 Drug: NS 0.9% 1000 ml Route: IV; Rate: 1 bolus; Site: right antecubital; aj1 11:14 Drug: TORadol 30 mg Route: IVP; Site: right antecubital; aj1 11:14 Drug: Phenergan 12.5 mg Route: IVP; Site: right antecubital; aj1 13:19 Follow up: Response: Marked relief of symptoms bp 13:20 Drug: Rocephin 1 grams Route: IV; Rate: per protocol; Site: right antecubital; bp 13:50 Follow up: Response: No adverse reaction; IV Status: Completed infusion; IV Intake: [id number] Intake: 13:50 IV: 10ml; Total: 10ml. aj1 Outcome: 13:02 Discharge ordered by . guero 13:51 Discharged to home ambulatory, with family. aj1 13:51 Condition: good 13:51 Discharge instructions given to patient, Instructed on discharge instructions, follow up and referral plans. medication usage, Demonstrated understanding of instructions, follow-up care, medications, Prescriptions given X 3. 13:52 Patient left the ED. aj1 Signatures: Kaleigh Mcgowan, RN RN Sundeep Mayen MD MD cha Williams, Irene, RN Rachael Forrest [facility] Lucas Looney RN [facility]
[2019-04-13] MEDS ORDERED: CEFTRIAXONE/SWI 1gm 1 GM/10 ML SYR ONE (13:26)
[2019-04-13 14:14] VITALS: TEMP 98.3
[2019-04-13 14:18] VITALS: BP 115/75; O2SAT 100
== END 2019-04-13 13:52 | disposition home or self-care (01) ==
LOC: ER 09:28
DX: J01.00 Acute maxillary sinusitis, unspecified (principal); Z88.2 Allergy status to sulfonamides; Z88.8 Allergy status to other drugs, medicaments and biological substances
CPT/HCPCS: 96365; 87088; 85025; 87086; 36415; 81025; 85652; 84443; 81003; 80053; 70486; 76377; 70496; 96375; 99284; Q9967; J2550; J0696; J7030

== ENCOUNTER 2019-04-17 10:48 | Emergency (ER) | payer OTHER ==
--- OUTSIDE RECORDS SUMMARY | 2019-04-17 10:50 | XMS REPORT ---
:1980 [facility] Address [address] [place] [address] Dr. Graham [address] [place] [id number] Care Team Providers Name Role Phone Unavailable Unavailable Unavailable Problems This patient has no known problems. Allergies, Adverse Reactions, Alerts This patient has no known allergies or adverse reactions. Medications This patient has no known medications. Encounters Start End Encounter Admission Attending Care Care Encounter Date/Time Date/Time Type Type Clinicians Facility Department ID 2019-04-11 2019-04-11 Emergency E [facility] [id number] 12:15:00 12:15:00 2018-09-12 2018-09-12 Outpatient [facility] [id number] 06:29:00 06:29:00 Results Test Description [...]
[2019-04-17] MEDS ORDERED: ONDANSETRON 4 MG/2 ML VIAL ONE (12:13)
[2019-04-17] MEDS ORDERED: KETOROLAC 30 MG/ML INJ ONE (12:13)
[2019-04-17] MEDS ORDERED: NA CHLORIDE 0.9% 1,000 ML ONE (12:13)
[2019-04-17 12:22] LABS: BUN Blood Urea Nitrogen 8 mg/dL (7-18); Bicarbonate 27 mmol/L (21-32); Glucose Level 106 mg/dL (74-106); Potassium 3.7 mmol/L (3.5-5.1); Sodium Level 139 mmol/L (136-145)
[2019-04-17 12:23] LABS: Absolute Lymphocytes (CBC) 2.1 K/uL (0.7-4.9); Basophils % 0.6 % (0-1.3); Hematocrit 37.1 % (36.0-45.0); Lymphocytes % 32.5 % (15.3-44.8); MPV 9.5 fL (7.6-11.3); RBC Red Blood Cell Count 4.16 M/uL (3.86-4.86)
[2019-04-17 14:42] LABS: CSF Glucose 58 mg/dL (40-70)
[2019-04-17 15:12] LABS: Appearance CLEAR (CLEAR); Body Fluid Source CSF; Body Fluid WBC 2 /mm^3; Color of fluid Colorless (COLORLESS)
[2019-04-17 15:13] LABS: Appearance CLEAR (CLEAR); Body Fluid Source CSF; Color of fluid Colorless (COLORLESS); Fluid Total Volume 10 ml
[2019-04-17 15:14] LABS: Body Fluid WBC 1 /mm^3
[2019-04-17] MEDS ORDERED: PROMETHAZINE INJ 25 MG/ML AMP ONE (15:31)
[2019-04-17] MEDS ORDERED: FENTANYL CITR 100 MCG/2 ML ONE (15:31)
--- NOTE | 2019-04-17 15:34 | ER ---
Nurse's Notes [facility] Name: Luis Felipe Nova Age: 39 yrs Sex: Female : 1980 Arrival Date: 04/17/2019 Time: 10:49 Bed 19 Private MD: Diagnosis: Migraine;Malaise and fatigue Presentation: 04/16 11:15 Chief complaint: Patient states: sinus pain, headache and ear pain x 1 month, is now ss getting worse with body aches. Coronavirus screen: The patient has NOT traveled to a country currently being monitored by the [facility] within the last 14 days. Proceed with normal triage procedures. Ebola Screen: Patient denies exposure to infectious person. Patient denies travel to an Ebola-affected area in the 21 days before illness onset. Initial Sepsis Screen: Does the patient meet any 2 criteria? No. Patient's initial sepsis screen is negative. Does the patient have a suspected source of infection? No. Patient's initial sepsis screen is negative. Risk Assessment: Do you want to hurt yourself or someone else? Patient reports no desire to harm self or others. 11:15 Method Of Arrival: Ambulatory 11:15 Acuity: BRIANNA 3 11:45 Onset of symptoms is unknown. Triage Assessment: 11:45 Pain: Also complains of no other associated symptoms. 11:45 Headache History: The patient has had previous headaches and this one is similar to previous episodes. 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 - Social history:: Smoking status: Patient denies any tobacco usage or history of. Screenin:50 Abuse screen: Denies threats or abuse. Nutritional screening: No deficits noted. tw2 Tuberculosis screening: No symptoms or risk factors identified. Fall Risk None identified. Assessment: 11:15 Reassessment:. General: Appears in no apparent distress. Behavior is calm, cooperative, wh appropriate for age. Pain: Complains of pain in sinus cabity and headache Pain does not radiate. Pain currently is 8 out of 10 on a pain scale. Pain began a month ago. Neuro: Level of Consciousness is awake, alert, obeys commands, Oriented to person, place, time, situation, Appropriate for age. Neuro: Reports headache in entire. Cardiovascular: Heart tones S1 S2. Respiratory: Airway is patent Respiratory effort is even, unlabored, Respiratory pattern is regular, symmetrical, Breath sounds are clear bilaterally. GI: Abdomen is flat, non-distended. : No signs and/or symptoms were reported regarding the genitourinary system. EENT: No signs and/or symptoms were reported regarding the EENT system. Derm: Skin is intact, is healthy with good turgor, Skin is pink, warm \\T\\ dry. normal. Musculoskeletal: Circulation, motion, and sensation intact. 12:08 Reassessment: Patient appears in no apparent distress at this time. No changes from previously documented assessment. Patient and/or family updated on plan of care and expected duration. Pain level reassessed. Patient is alert, oriented x 3, equal unlabored respirations, skin warm/dry/pink. 13:05 Reassessment: Patient appears in no apparent distress at this time. No changes from previously documented assessment. Patient and/or family updated on plan of care and expected duration. Pain level reassessed. Patient is alert, oriented x 3, equal unlabored respirations, skin warm/dry/pink. No change in headache condition, notified provider, plan for Lumbar Tap. 13:40 Reassessment: Patient appears in no apparent distress at this time. No changes from previously documented assessment. Patient and/or family updated on plan of care and expected duration. Pain level reassessed. Patient is alert, oriented x 3, equal unlabored respirations, skin warm/dry/pink. Lumbar tap done at bedside by provider. 14:30 Reassessment: Patient appears in no apparent distress at this time. No changes from previously documented assessment. Patient and/or family updated on plan of care and expected duration. Pain level reassessed. Patient is alert, oriented x 3, equal unlabored respirations, skin warm/dry/pink. Pt lying flat eyes closed. 15:39 Reassessment: Patient appears in no apparent distress at this time. No changes from previously documented assessment. Patient and/or family updated on plan of care and expected duration. Pain level reassessed. Patient is alert, oriented x 3, equal unlabored respirations, skin warm/dry/pink. Vital Signs: 11:15 BP 137 / 90; Pulse 89; Resp 15; Temp 98.2(O); Pulse Ox 99% on R/A; Weight 102.06 kg; ss Height 5 ft. 11 in. (180.34 cm); 12:15 BP 121 / 79; Pulse 79; Resp 18; Pulse Ox 96% on R/A; wh 13:22 BP 119 / 81; Pulse 72; Resp 16; Pulse Ox 97% on R/A; wh 14:20 BP 113 / 72; Pulse 75; Resp 18; Pulse Ox 95% on R/A; wh 15:30 BP 117 / 77; Pulse 77; Resp 16; Pulse Ox 96% on R/A; wh 11:15 Body Mass Index 31.38 (102.06 kg, 180.34 cm) ED Course: 10:49 Patient arrived in ED. rg4 11:09 Bed in low position. Call light in reach. tw2 11:11 Bryan Griffiths PA is PHCP. jr8 11:11 Sundeep Galvan MD is Attending Physician. jr8 11:17 Triage completed. 11:20 Arm band placed on right wrist. 11:45 Inserted saline lock: 20 gauge in right antecubital area, using aseptic technique. Blood collected. 11:46 Kieran Rincon is Primary Nurse. 13:40 Assist provider with lumbar puncture: Set up LP tray. Performed by Bryan LARA CSF wh is clear. Puncture site dressed with band aid, Procedure was successful. Patient tolerated well. 15:42 IV discontinued, intact, bleeding controlled, No redness/swelling at site. Administered Medications: 12:06 Drug: NS 0.9% 1000 ml Route: IV; Rate: 1000 ml; Site: right antecubital; 14:30 Follow up: Response: No adverse reaction; IV Status: Completed infusion 12:08 Drug: TORadol - Ketorolac 15 mg Route: IVP; Site: right antecubital; 13:00 Follow up: Response: No adverse reaction; Pain is unchanged, physician notified 12:10 Drug: Zofran (Ondansetron) 4 mg Route: IVP; Site: right antecubital; 14:30 Follow up: Response: No adverse reaction 15:36 Drug: fentaNYL (PF) 50 mcg {Note: RASS 0.} Route: IVP; Site: right antecubital; 15:55 Follow up: Response: No adverse reaction; Pain is decreased; RASS: Alert and Calm (0) 15:38 Drug: Promethazine 12.5 mg Route: IVP; Site: right antecubital; 15:55 Follow up: Response: No adverse reaction; Nausea is decreased Outcome: 15:33 Discharge ordered by . adam 15:41 Discharged to home via wheelchair. 15:41 Discharged to home with family. 15:41 Condition: stable 15:41 Instructed on discharge instructions, follow up and referral plans. POC Demonstrated understanding of instructions, follow-up care, POC 15:54 Patient left the ED. Signatures: Danay Galvez, RN RN ss Bryan Griffiths PA PA jr8 Kayy Borja RN RN tw2 Xena [email or web address] Kieran Rincon Corrections: (The following items were deleted from the chart) 12:13 11:15 Acuity: BRIANNA 4 ss ss
--- NOTE | 2019-04-17 15:35 | EDPHYS ---
Physician Documentation [facility] Name: Luis Felipe Nova Age: 39 yrs Sex: Female : 1980 Arrival Date: 04/17/2019 Time: 10:49 Bed 19 Private MD: ED Physician Sundeep Galvan HPI: 04/16 12:05 This 39 yrs old Female presents to ER via Ambulatory with complaints of jr8 Headache, Body Aches. 12:05 Patient stated that over the past few weeks has had 2 rounds of steroids and 3 rounds jr8 of Abx for what she believed to be sinus infection. Stated that she had opacified right maxillary sinus. Started as cold like symptoms. Stated that she is having worsening of head pain and body aches along with fatigue. History of benign intracranial hypertension as well with stent placed. Went to neurologist to check for patency and was cleared and without collapse of stent . Severity of symptoms: At their worst the symptoms were moderate in the emergency department the symptoms are unchanged. The patient has not experienced similar symptoms in the past. The patient has been recently seen by a physician:. 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 - Social history:: Smoking status: Patient denies any tobacco usage or history of. ROS: 12:05 Cardiovascular: Negative for chest pain, palpitations, and edema, Respiratory: Negative jr8 for shortness of breath, cough, wheezing, and pleuritic chest pain, Abdomen/GI: Negative for abdominal pain, nausea, vomiting, diarrhea, and constipation, Back: Negative for injury and pain, MS/Extremity: Negative for injury and deformity, Skin: Negative for injury, rash, and discoloration. 12:05 Eyes: Negative for injury, pain, redness, and discharge. 12:05 Constitutional: Positive for body aches, chills, malaise, Negative for fever, poor PO intake. 12:05 ENT: Positive for sinus congestion, sinus pain, Negative for drainage from ear(s), sore throat, difficulty swallowing, difficulty handling secretions, hoarseness. 12:05 Neck: Positive for pain with movement, pain at rest, Negative for stiffness, tenderness, bony tenderness. 12:05 Neuro: Positive for headache, Negative for altered mental status, dizziness, gait disturbance, hearing loss, loss of consciousness, numbness, seizure activity, speech changes, syncope, near syncope, tingling, tinnitus, tremor, visual changes, weakness. Exam: 12:05 Eyes: Pupils equal round and reactive to light, extra-ocular motions intact. Lids and jr8 lashes normal. Conjunctiva and sclera are non-icteric and not injected. Cornea within normal limits. Periorbital areas with no swelling, redness, or edema. ENT: Nares patent. No nasal discharge, no septal abnormalities noted. Tympanic membranes are normal and external auditory canals are clear. Oropharynx with no redness, swelling, or masses, exudates, or evidence of obstruction, uvula midline. Mucous membranes moist. Neck: Trachea midline, no thyromegaly or masses palpated, and no cervical lymphadenopathy. Supple, full range of motion without nuchal rigidity, or vertebral point tenderness. No Meningismus. Cardiovascular: Regular rate and rhythm with a normal S1 and S2. No gallops, murmurs, or rubs. Normal PMI, no JVD. No pulse deficits. Respiratory: Lungs have equal breath sounds bilaterally, clear to auscultation and percussion. No rales, rhonchi or wheezes noted. No increased work of breathing, no retractions or nasal flaring. Abdomen/GI: Soft, non-tender, with normal bowel sounds. No distension or tympany. No guarding or rebound. No evidence of tenderness throughout. Back: No spinal tenderness. No costovertebral tenderness. Full range of motion. Skin: Warm, dry with normal turgor. Normal color with no rashes, no lesions, and no evidence of cellulitis. MS/ Extremity: Pulses equal, no cyanosis. Neurovascular intact. Full, normal range of motion. Neuro: Awake and alert, GCS 15, oriented to person, place, time, and situation. Cranial nerves II-XII grossly intact. Motor strength 5/5 in all extremities. Sensory grossly intact. Cerebellar exam normal. Normal gait. 12:05 Head/face: Sinus tenderness, that is mild, is located over the right maxillary sinus. Vital Signs: 11:15 BP 137 / 90; Pulse 89; Resp 15; Temp 98.2(O); Pulse Ox 99% on R/A; Weight 102.06 kg; ss Height 5 ft. 11 in. (180.34 cm); 12:15 BP 121 / 79; Pulse 79; Resp 18; Pulse Ox 96% on R/A; wh 13:22 BP 119 / 81; Pulse 72; Resp 16; Pulse Ox 97% on R/A; wh 14:20 BP 113 / 72; Pulse 75; Resp 18; Pulse Ox 95% on R/A; wh 15:30 BP 117 / 77; Pulse 77; Resp 16; Pulse Ox 96% on R/A; wh 11:15 Body Mass Index 31.38 (102.06 kg, 180.34 cm) ss MDM: 11:16 Patient medically screened. guero 13:23 Data reviewed: vital signs, nurses notes, lab test result(s). Data interpreted: Pulse jr8 oximetry: on room air is 97 %. Interpretation: normal. Counseling: I had a detailed discussion with the patient and/or guardian regarding: the historical points, exam findings, and any diagnostic results supporting the discharge/admit diagnosis, lab results. ED course: Patients labs unremarkable. Still not feeling well after initial treatment. 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 Today is not as bad but still feels like she may have something wrong. Will do a LP to check pressure and to send out for Directigen and culture . 15:29 ED course: LP negative. Recommended f/u with ENT next week as scheduled. If worse to jr8 come back . 04/16 11:42 Order name: CBC with Diff; Complete Time: 12:30 jr8 04/16 11:42 Order name: Basic Metabolic Panel; Complete Time: 12:30 jr8 04/16 11:42 Order name: Influenza Screen (a \\T\\ B); Complete Time: 12:30 jr8 04/16 11:42 Order name: [place] Screen Profile; Complete Time: 12:30 04/16 13:50 Order name: CSF Bacterial Antigens (tube 1); Complete Time: 14:57 04/16 13:50 Order name: Csf Culture 04/16 11:42 Order name: IV; Complete Time: 12:02 04/16 13:50 Order name: Fluid Cell Count,Body; Complete Time: 15:25 04/16 13:50 Order name: Spinal Fluid Profile; Complete Time: 15:04/16 13:02 Order name: LP Consents; Complete Time: 13:04/16 13:02 Order name: LP Setup; Complete Time: 13: Administered Medications: 12:06 Drug: NS 0.9% 1000 ml Route: IV; Rate: 1000 ml; Site: right antecubital; 14:30 Follow up: Response: No adverse reaction; IV Status: Completed infusion 12:08 Drug: TORadol - Ketorolac 15 mg Route: IVP; Site: right antecubital; 13:00 Follow up: Response: No adverse reaction; Pain is unchanged, physician notified 12:10 Drug: Zofran (Ondansetron) 4 mg Route: IVP; Site: right antecubital; 14:30 Follow up: Response: No adverse reaction 15:36 Drug: fentaNYL (PF) 50 mcg {Note: RASS 0.} Route: IVP; Site: right antecubital; 15:55 Follow up: Response: No adverse reaction; Pain is decreased; RASS: Alert and Calm (0) 15:38 Drug: Promethazine 12.5 mg Route: IVP; Site: right antecubital; 15:55 Follow up: Response: No adverse reaction; Nausea is decreased Disposition: 17:18 Co-signature as Attending Physician, Sundeep Galvan MD I agree with the assessment and guero plan of care. Disposition: 04/17/19 15:33 Discharged to Home. Impression: Migraine, Malaise and fatigue. - Condition is Stable. - Discharge Instructions: Migraine Headache, Fatigue. - Medication Reconciliation Form, Thank You Letter, Antibiotic Education, Prescription Opioid Use form. - Follow up: Private Physician; When: 1 week; Reason: Recheck today's complaints, Continuance of care, Re-evaluation by your physician. - Problem is new. - Symptoms have improved. Signatures: Dispatcher [employer] EDMS Sundeep Galvan MD MD cha Smirch, Shelby, RN RN Bryan Edgar PA PA jr8 Kayy Borja RN RN tw2 JesuslucilleKieran Corrections: (The following items were deleted from the chart) 15:33 15:33 04/17/2019 15:33 Discharged to Home. Impression: Migraine. Condition is Stable. jr8 Forms are Medication Reconciliation Form, Thank You Letter, Antibiotic Education, Prescription Opioid Use. Follow up: Private Physician; When: 1 week; Reason: Recheck today's complaints, Continuance of care, Re-evaluation by your physician. Problem is new. Symptoms have improved. jr8 15:54 15:33 04/17/2019 15:33 Discharged to Home. Impression: Migraine; Malaise and fatigue. Condition is Stable. Discharge Instructions: Migraine Headache. Forms are Medication Reconciliation Form, Thank You Letter, Antibiotic Education, Prescription Opioid Use. Follow up: Private Physician; When: 1 week; Reason: Recheck today's complaints, Continuance of care, Re-evaluation by your physician. Problem is new. Symptoms have improved. jr8
[2019-04-17 16:26] VITALS: BP 117/77; O2SAT 96
[2019-04-17 16:59] VITALS: TEMP 98.2
[2019-04-27] MEDS ORDERED: ACETAMINOPHEN 325 MG TABLET ONE (20:36)
[2019-04-27] MEDS ORDERED: CLINDAMYCIN 600MG/D5W 600 MG/50 ML BAG IV ONE (20:36)
== END 2019-04-17 15:54 | disposition home or self-care (01) ==
LOC: ER 10:48
DX: G43.909 Migraine, unspecified, not intractable, without status migrainosus (principal); R53.81 Other malaise; R53.83 Other fatigue; Z88.2 Allergy status to sulfonamides
CPT/HCPCS: 96361; 87070; 85025; 80048; 36415; 89050 ×2; 86308; 84157; 82945; 86403 ×6; 87804 ×2; 62270; 96375; 96374; 99284; J2550; J3010; J7030; J2405

== ENCOUNTER 2020-10-11 14:32 | Emergency (ER) | payer OTHER ==
--- OUTSIDE RECORDS SUMMARY | 2020-10-11 14:36 | XMS REPORT | Clinical Summary ---
:1980 Author Organization [facility] MD [facility] Center Address [address] [place] [address] Care Team Providers Name Role Phone Rochelle Noriega Unavailable [phone] MD Dylan Unavailable MD Delia Primary Care Provider Allergies Active Allergy Reactions Severity Noted Date Comments Metoclopramide Diarrhea, GI High 03/03/2016 Other reactio n(s): Intolerance Diarrhea, NOS Sulfa (Sulfonamide Hives, Rash Low 04/14/2015 Antibiotics) Medications Medication Sig Dispensed Refills Start Date End Date Status escitalopram Take 20 mg 0 Active (LEXAPRO) 20 mg by mouth tablet daily. levothyroxine Take 1 0 Active (SYNTHROID, tablet by LEVOTHROID) 112 mcg mouth daily. tablet estradiol (ESTRACE) Take 1 0 08/01/2020 Active 2 mg tablet tablet by mouth daily. aspirin (Enteric Take 1 0 04/26/2018 Ac tive Coated Aspirin) 81 tablet by mg EC tablet mouth daily. promethazine Take 1 0 08/11/2017 Active (PHENERGAN) 25 mg tablet by tablet mouth as needed. HYDROcodone-acetami Take 1 0 Discontinued nophen (NORCO) 10 tablet by 1 (T herapy mg-325 mg per mouth as comple sky) tablet needed. meloxicam (MOBIC) Take 1 0 04/10/2015 D iscontinued 15 mg tablet tablet by 1 (Therap y mouth daily. complet ed) topiramate Take 1 0 04/10/2015 Disconti nued (TOPAMAX) 25 mg tablet by 1 (The rapy tablet mouth daily. complet ed) HYDROmorphone 0 04/21/2015 Disco ntinued (DILAUDID) 2 mg 1 (The rapy tablet completed) Active Problems Problem Noted Date Endometriosis of pelvic peritoneum 04/14/2015 Right upper quadrant pain 04/07/2015 Encounters Date Type Specialty Care Team Description 10/06/2020 Ancillary Procedure Radiology Delia Neuroend ocrine tumor MD Rachel 10/06/2020 Orders Only Internal Medicine Rachel Lin MD 10/06/2020 Travel 09/22/2020 Ancillary Procedure Radiology Roxanne Lin MD 09/22/2020 Ancillary Procedure Radiology Roxanne Lin MD 09/22/2020 Ancillary Procedure Radiology Roxanne Lin MD 09/22/2020 Office Visit Internal Medicine Delia Neuroendoc rine tumor MD Rachel (Primary Dx) 09/22/2020 NPR Patient Access Services 09/22/2020 Travel 06/03/2020 Travel after 10/12/2019 Immunizations Name Administration Dates Next Due Influenza, Quadrivalent 01/15/2020, 11/21/2018 Pneumococcal Polysaccharide 08/28/2014 Tdap 11/21/2018, 03/29/2008 Surgical History Surgery Date Site/Laterality Comments BACK SURGERY 07/08/2014 - dural ectatic cy st 08/06/2014 CHOLECYSTECTOMY 08/07/2009 - N/A 09/06/2009 APPENDECTOMY 08/07/2014 - 09/06/2014 THYROID SURGERY 08/07/2013 - 09/06/2013 HYSTERECTOMY 09/07/2014 - 10/07/2014 SPINE SURGERY Due to cyst on S [place] COLONOSCOPY BRAIN SURGERY 03/10/2018 - Stent for intrac ranial 04/06/2018 hypertension UPPER GASTROINTESTINAL 09/19/2020 ENDOSCOPY OOPHORECTOMY BILATERAL Medical History Medical History Date Comments Disorder of thyroid gland Depression Anxiety Bacterial meningitis 2013 Spinal instabilities, sacral and Patient was diagnosed with cyst on sacrococcygeal region spine, mistakenly diagnosed with MS for 2 years. Pain in right shoulder 04/14/2015 Neck pain 11/19/2013 Right flank pain 04/07/2015 Thrombosis 08/2014 arm Migraine Lung nodule Polyp of colon Endometriosis September 2014 Anemia Screening mammography 2018 pt reports-stable Routine pap smear 04/2020 pt reports WNL Family History Medical History Relation Name Comments Thyroid cancer Father Jorge -Other cancer Maternal Grandmother Sara Bile duct cancer Maternal Grandmother Sara Cervical cancer Maternal Grandmother Sara Melanoma Maternal Grandmother Sara Skin cancer Maternal Grandmother Sara Thyroid cancer Maternal Grandmother Sara Heart attack Maternal Uncle Stomach cancer Paternal Aunt Dayanna Colon cancer Paternal Grandfather Jorge Relation Name Status Comments Father Jorge Maternal Grandmother Sara Maternal Uncle Paternal Aunt Dayanna Paternal Grandfather Jorge Social History Tobacco Use Types Packs/Day Years Used Date Never Smoker 0 0 Smokeless Tobacco: Never Used Comments: Does not work outside of the [employer] Alcohol Use Standard Drinks/Week Comments Yes 0 (1 standard drink = 0.6 oz pure alcoho l) wine 1x/month Sex Assigned at Date Recorded Female 09/20/2020 6:18 PM CDT Job Start Date Occupation Industry Not on file Not on file Not on file COVID-19 Exposure Response Date Recorded In the last month, have you been in contact with No / Unsure 10/06/2020 8:27 AM CDT someone who was confirmed or suspected to have Coronavirus / COVID-19? Obstetrics History Grav Para Term Pre Abrt (TAB) (SAB) (Ect) Mult Lvng Comments 4 3 2 1 1 1 Date Outcome GA Total Labor/2nd/3rd Weight Sex Delivery Anes PTL Nidia A 1 A5 Name Clin Labor Term Term SAB Last Filed Vital Signs Vital Sign Reading Time Taken Comments Blood Pressure 120/76 09/22/2020 12:32 PM CDT Pulse 72 09/22/2020 12:32 PM CDT Temperature 37.1 C (98.8 F) 09/22/2020 12:32 PM CDT Respiratory Rate 18 09/22/2020 12:32 PM CDT Oxygen Saturation 97% 09/22/2020 12:32 PM CDT Inhaled Oxygen Concentration - - Weight 103.2 kg (227 lb 8.2 oz) 10/06/2020 12:55 PM CDT Height 178 cm (5' 10.08") 10/06/2020 12:55 PM CDT Body Mass Index 32.57 10/06/2020 12:55 PM CDT Plan of Treatment Date Type Specialty Care Team Description 11/06/2020 Telemedicine Internal Medicine Yanely Lin MD [address], [place] [address] [phone] Health Maintenance Due Date Last Done Comments COVID-19 Vaccination (1) 1993 Implants Implanted Type Area Road Repairer Device Shelf Expiration Model / Serial Identifier Date / Lot Cordis Stent-04/04/2018 [id number] / Implanted: 04/04/2018 (Quantity not on file) / [id number] Procedures Procedure Name Priority Date/Time Associated Diagnosis Comme nts MRI ABDOMEN W WO Routine 10/06/2020 2:00 Neuroendocrine tumor Results for this CONTRAST PM CDT procedure are i n the results section. FRACTIONATED BILIRUBIN Routine 10/06/2020 8:29 Neuroendocrine tumor Results for this AM CDT procedure are i n the results section. TOTAL PROTEIN Routine 10/06/2020 8:29 Neuroendocrine tumor Re sults for this AM CDT procedure are i n the results section. ASPARTATE Routine 10/06/2020 8:29 Neuroendocrine tumor Res ults for this AMINOTRANSFERASE AM CDT procedure a re in the results section. ALANINE Routine 10/06/2020 8:29 Neuroendocrine tumor Res ults for this AMINOTRANSFERASE AM CDT procedure a re in the results section. ALKALINE PHOSPHATASE Routine 10/06/2020 8:29 Neuroendocrine t umor Results for this AM CDT procedure are i n the results section. ALBUMIN LEVEL Routine 10/06/2020 8:29 Neuroendocrine tumor Re sults for this AM CDT procedure are i n the results section. CALCIUM LEVEL TOTAL Routine 10/06/2020 8:29 Neuroendocrine tu mor Results for this AM CDT procedure are i n the results section. .GLOMERULAR FILTRATION Routine 10/06/2020 8:29 Neuroendocrine tumor Results for this RATE AM CDT procedure are i n the results section. SERUM CREATININE Routine 10/06/2020 8:29 Neuroendocrine tumor Results for this AM CDT procedure are i n the results section. ELECTROLYTE PANEL Routine 10/06/2020 8:29 Neuroendocrine tumo r Results for this AM CDT procedure are i n the results section. BLOOD UREA NITROGEN Routine 10/06/2020 8:29 Neuroendocrine tu mor Results for this AM CDT procedure are i n the results section. GLUCOSE LEVEL Routine 10/06/2020 8:29 Neuroendocrine tumor Re sults for this AM CDT procedure are i n the results section. MANUAL DIFFERENTIAL Routine 10/06/2020 8:29 Neuroendocrine tu mor Results for this AM CDT procedure are i n the results section. Results CBC Routine 10/06/2020 8:29 Neuroendocrine tumor Res ults for this AM CDT procedure are i n the results section. NEURON SPECIFIC Routine 10/06/2020 8:29 Neuroendocrine tumor Results for this ENOLASE, SERUM AM CDT procedure are in the results section. GASTRIN LVL Routine 10/06/2020 8:29 Neuroendocrine tumor Res ults for this AM CDT procedure are i n the results section. CHROMOGRANIN A Routine 10/06/2020 8:29 Neuroendocrine tumor R esults for this AM CDT procedure are i n the results section. URIC ACID Routine 10/06/2020 8:29 Neuroendocrine tumor Res ults for this AM CDT procedure are i n the results section. LACTATE DEHYDROGENASE Routine 10/06/2020 8:29 Neuroendocrine tumor Results for this AM CDT procedure are i n the results section. PHOSPHORUS LEVEL Routine 10/06/2020 8:29 Neuroendocrine tumor Results for this AM CDT procedure are i n the results section. MAGNESIUM LEVEL Routine 10/06/2020 8:29 Neuroendocrine tumor Results for this AM CDT procedure are i n the results section. COMPREHENSIVE METABOLIC Routine 10/06/2020 8:29 Neuroendocrin e tumor PANEL AM CDT COMPLETE BLOOD COUNT W/ Routine 10/06/2020 8:29 Neuroendocrin e tumor DIFFERENTIAL AM CDT OSI MRI ABDOMEN Routine 08/12/2020 1:42 Cancer Results for this PM CDT procedure are i n the results section. OSI PET CT SKULL TO MID Routine 07/28/2020 2:02 Cancer Results for this THIGH PM CDT procedure are i n the results section. OSI CT ABDOMEN AND Routine 05/07/2020 2:02 Cancer Resul ts for this PELVIS PM CDT procedure are i n the results section. after 10/12/2019 Results MRI Abdomen W/WO contrast (10/06/2020 2:00 PM CDT) Specimen Impressions Performed At 1. Tiny pancreatic head cyst. No enhancing pancreati c mass is [id number] identified. 2. Note is made with regards to concern for possible neuroendocrine tumor. Bowel loops are poorly evaluated on MRI. Consid er CT enterogram protocol for further evaluation, as clin ically warranted. I personally reviewed these image(s) along with the resident's/fellow's interpretations, certify that if a procedure was performed I was physically present, and agree with the final report. Narrative Performed At FULL RESULT: [id number] Examination: MRI ABDOMEN W WO CONTRAST o n 10/06/2020 2:00 PM. Clinical History: 40-year-old female with no prior his tory of malignancy who is undergoing workup for possible neuro endocrine tumor with symptoms of diarrhea and skin flush ing. Indication: 5 mm pancreatic head lesion. Comparison: MRI abdomen 08/12/2020 from outside hospital , CT abdomen/pelvis 05/07/2020 from outside hospital, PET/CT 07/28/2020 from outside hospital Technique: MRI of the abdomen with and without venous contrast was performed per departmental protocol. Findings: Mild hepatic steatosis is present . No focal hepatic l esion is identified. Borderline splenomegaly is noted with a cr aniocaudal length of 12 cm. The gallbladder is surgically absent. The biliary tree is normal in caliber. The adrenal glands and bilatera l kidneys are unremarkable. No enhancing pancreatic parenchymal lesion is identifi ed. There is a tiny 4 mm T2 hyperintense, T1 hypointense, nonenhancin g tiny pancreatic head cyst (series 6, image 39). No definite communication with the main pancreatic duct is identified on this ex am and review of prior MRCP images. The pancreatic duct i s normal in caliber. No lymphadenopathy is identified. The abdominal aorta and inferior vena cava demonstrate normal course and contour. No suspicious osseous lesions are identi fied. A small fat-containing umbilical hernia is noted. Procedure Note Interface, Radiology Results In - 2020 6:02 PM CDT FULL RESULT: Examination: MRI ABDOMEN W WO CONTRAST o n 10/06/2020 2:00 PM. Clinical History: 40-year-old female wit h no prior history of malignancy who is undergoing workup for possible neuroendocrine tumor with symptoms of diarrhea and skin flushing. Indication: 5 mm pancreatic head lesion. Comparison: MRI abdomen 08/12/2020 from [facility], CT abdomen/pelvis 05/07/2020 from outside hospital, PET/CT 07/28/2020 from outside hospital Technique: MRI of the abdomen with and w ithout venous contrast was performed per departmental protocol. Findings: Mild hepatic steatosis is present . No f ocal hepatic lesion is identified. Borderline splenomegaly is noted with a craniocaudal length of 12 cm. The gallbladder is surgically absent. Th e biliary tree is normal in caliber. The adrenal glands and bilateral kidneys are unremarkable. No enhancing pancreatic parenchymal lesi on is identified. There is a tiny 4 mm T2 hyperintense, T1 hypointense, nonenhancing tiny pancreatic head cyst (series 6, image 39). No definite communication with the main pancreatic duct is identified on this ex am and review of prior MRCP images. The pancreatic duct is normal in caliber. No lymphadenopathy is identified. The ab dominal aorta and inferior vena cava demonstrate normal course and contour. No suspicious osseous lesions are identi fied. A small fat-containing umbilical hernia is noted. IMPRESSION: 1. Tiny pancreatic head cyst. No enhanc ing pancreatic mass is identified. 2. Note is made with regards to concern for possible neuroendocrine tumor. Bowel loops are poorly evaluated on MRI. Consider CT enterogram protocol for further evaluation, as clinically warranted. I personally reviewed these image(s) lucille reese with the resident's/fellow's interpretations, certify that if a procedure was performed I was physically present, and agree with the final report. Performing Organization Address City/[facility] Code Phon e Number [id number] .Serum Creatinine (10/06/2020 8:29 AM CDT) Pathologist Sig florentin Creatinine 0.80Comment: Testing 0.51 - 0.95 mg/dL [place] performed at [facility], [address] [place] [address] Specimen Blood Performing Organization Address City/[facility] Phon e Number [place], [place] [id number] [place] [address] .CBC (10/06/2020 8:29 AM CDT) Pathologist Sig florentin WBC 5.9Comment: All 4.0 - 11.0 K/uL [place] components of the CBC performed at [facility], [address] [place] [address] RBC 4.29Comment: All 4.00 - 5.50 [place] components of the CBC M/uL performed at [facility], [address] [place], [place] [id number] Hgb 12.6Comment: As part 12.0 - 16.0 [place] of CBC or as an gm/dL individual orderable testing performed at [facility], [address] [place] [address], [facility]573 Hct 39.5Comment: As part 37.0 - 47.0 % [place] of CBC testing performed at [facility], [address] [place] [address] MCV 92Comment: As part of 82 - 98 fL [place] CBC testing performed at [facility], [address] [place], [place] [id number] MCH 29.4Comment: As part 27.0 - 31.0 pg [place] of CBC testing performed at [facility], [address] [place], [place] [id number] MCHC 31.9Comment: As part 31.0 - 36.0 [place] of CBC testing gm/dL performed at [facility], [address] [place], [place] [id number] RDW-SD 45.1Comment: As part 35.1 - 46.3 fL [place] of CBC testing performed at [facility], [address] [place] [address] RDW-CV 13.2Comment: As part 12.0 - 15.5 % [place] of CBC testing performed at [facility], [address] [place], [place] [id number] Platelet count 291Comment: As part 140 - 440 K/uL [place] of CBC or an individual orderable testing performed at [facility], [address] [place] [address] MPV 10.5 (H)Comment: As 4.0 - 10.4 fL [place] part of CBC testing performed at [facility], [address] [place] [address] Specimen Blood Performing Organization Address City/State/[facility] [place] [address] [place] [address] Glomerular Filtration Rate (10/06/2020 8:29 AM CDT) [facility] nature eGFR-AA 107 >=60 mL/min/1.73 [place] Comment: sq. m Normal eGFR >= 60 mL/min/1.73 m2 Note: The eGFR is calculated using the CKD-EPI equation. The eGFR declines with age. eGFR <60 mL/min/1.73 m2 is considered as "decreased". This equation should only be used for patients 18 and older. According to the [facility]'s Kidney Disease Outcome Quality Initiative (KDOQI) classification and 2012 Kidney Disease Improving Global Outcomes (KDIGO) Clinical Practice Guideline, the stage of CKD should be categorized based on estimated GFR. Stage Description GFR mL/min/1.73 m2 1 Normal or high GFR >=90 2 Mildly decreased GFR 60-89 3a Mildly to moderately decreased GFR 45-59 3b Moderately to severely decreased GFR 30-44 4 Severely decreased GFR 15-29 5 Kidney failure <15 Testing performed at [facility], [address] [place] [address] eGFR-JOHAN 93 >=60 mL/min/1.73 [place] Comment: sq. m Normal eGFR >= 60 mL/min/1.73 m2 Note: The eGFR is calculated using the CKD-EPI equation. The eGFR declines with age. eGFR <60 mL/min/1.73 m2 is considered as "decreased". This equation should only be used for patients 18 and older. According to the [facility]'s Kidney Disease Outcome Quality Initiative (KDOQI) classification and 2012 Kidney Disease Improving Global Outcomes (KDIGO) Clinical Practice Guideline, the stage of CKD should be categorized based on estimated GFR. Stage Description GFR mL/min/1.73 m2 1 Normal or high GFR >=90 2 Mildly decreased GFR 60-89 3a Mildly to moderately decreased GFR 45-59 3b Moderately to severely decreased GFR 30-44 4 Severely decreased GFR 15-29 5 Kidney failure <15 Testing performed at [facility], [address] [place] [address] Specimen Blood Performing Organization Address City/[facility] Phon e Number [facility] [place] [address] [place] [address] Fractionated Bilirubin (10/06/2020 8:29 AM CDT) Bili Total 0.3 <=1.2 mg/dL [place] Comment: Indocyanine Green (ICG) may cause falsely elevated bilirubin results. Total and direct bilirubin must not be measured from samples containing indocyanine green. False elevation of total lisandro irubin can be seen in patients with IgG concentrations above 28 g/L. Testing performed at [facility], [address] [place] [address], [place] [address] Bili Direct <0.2 <=0.3 mg/dL [place] Comment: Indocyanine Green (ICG) may cause falsely elevated bilirubin results. Total and direct bilirubin must not be measured from samples containing indocyanine green. Testing performed at [facility], [address] [place] [address], [place] [address] Bili Indirect See Note 0.0 - 0.9 [place] Comment: mg/dL Unable to calculate Indirect Bilirubin result due to some parameters are outside reportable range Testing performed at [facility], [address] [place] [address], [place] [address] Specimen Blood Performing Organization Address City/State/ZIP Code Phon e Number [facility] [place] [address] [place] [address] NSE (10/06/2020 8:29 AM CDT) Neuron 9.6 <=15 ng/mL [facility] [place] Comment: CANCER CENTER ADDITIONAL INFORMATION ------ This test was developed and its performance characteri stics determined by [facility] in a manner consistent with CLIA requirements. This test has not been cleared or approved by the U.S. Food and Drug Administration. The testing method is a homogeneous time-resolved immunofluorescent assay manufactured by [employer] and performed on the [employer] Kryptor Compact Plus. Values obtained with different assay methods or kits may be different and cannot be used interchangeably. If ordered as a tumor marker, this test result cannot be interpreted as absolute evidence for the presence or absence of malignant disease. Test Performed by: [facility] [place] [address] [place]: Al Pichardo M.D. Ph.D.; CLIA# [id number] Specimen Blood Performing Organization Address [facility] Phon e Number [facility] CANCER Unless otherwise noted, [address] all lab tests performed by: Division of Pathology and Laboratory Medicine [address] [place] Chromogranin A (10/06/2020 8:29 AM CDT) Pathologist [facility] Chromogranin [place] [address] <93 ng/mL [facility] Comment: CANCER CENTER ADDITIONAL INFORMATION ------ This test was developed and its performance characteri stics determined by [facility] in a manner consistent with CLIA requirements. This test has not been cleared or approv ed by the U.S. Food and Drug Administration. The testing method is a homogeneous time-resolved immunofluorescent assay manufactured by [employer] and performed on the [employer] Kryptor Compact Plus. Values obtained with different assay methods or kits m ay be different and cannot be used interchangeably. Test results cannot be interpreted as absolute evidenc e for the presence or absence of malignant disease. Test Performed by: [facility] [place] [address] [place]: Al Pichardo M.D. Ph.D.; CLIA# [id number] Specimen Blood Performing Organization Address [facility] Phon e Number [facility] Unless otherwise noted, [address] all lab tests performed by: Division of Pathology and Laboratory Medicine [address] [place] Differential (10/06/2020 8:29 AM CDT) Neutrophil % 54.2Comment: All 42.0 - 66.0 % [place] components of the Differential performed at [facility], [address] [place] [address], [place] [address] Lymphocyte % 37.6Comment: As part 24.0 - 44.0 % [place] of the Differential testing performed at [facility], [address] [place] [address], [place] [address] Monocyte % 5.3Comment: As part of 2.0 - 7.0 % [place] the Differential testing performed at [facility], [address] [place] [address], [place] [address] Eosinophil % 2.4Comment: As part of 1.0 - 4.0 % [place] the Differential testing performed at [facility], [address] [place] [address], [place] [address] Basophil % 0.5Comment: As part of 0.0 - 1.0 % [place] the Differential testing performed at [facility], [address] [place] [address], [place] [address] IGRE % 0.0 0.0 - 0.4 % [place] Comment: IGRE % count includes Metamyelocytes, Myelocytes, and Promyelocytes. As part of the Differential testing performed at [facility], [address] [place] [address], [place] [address] Neutrophil Abs 3.19Comment: As part 1.70 - 7.30 [place] of the Differential K/uL testing performed at [facility], [address] [place] [address] Lymphocyte Abs 2.21Comment: As part 1.00 - 4.80 [place] of the Differential K/uL testing performed at [facility], [address] [place] [address], [place] [address] Monocyte Abs 0.31Comment: As part 0.08 - 0.70 [place] of the Differential K/uL testing performed at [facility], [address] [place] [address], [place] [address] Eosinophil Abs 0.14Comment: As part 0.04 - 0.40 [place] of the Differential K/uL testing performed at [facility], [address] [place] [address] Basophil Abs 0.03Comment: As part 0.00 - 0.10 [place] of the Differential K/uL testing performed at [facility], [address] [place] [address], [place] [address] IG Abs 0.00Comment: As part 0.00 - 0.04 [place] of the Differential K/uL testing performed at [facility], [address] [place] [address] Specimen Blood Performing Organization Address City/State/ZIP Code Phon e Number [facility] [place] [address] [place] [address] Uric Acid (10/06/2020 8:29 AM CDT) Pathologist Sig [facility] Uric Acid 5.1Comment: Testing 2.4 - 5.7 mg/dL [place] performed at [facility], [address] [place] [address] Specimen Blood Performing Organization Address City/State/ZIP Code [place] [address] [place] [address] BUN (10/06/2020 8:29 AM CDT) Pathologist Sig [facility] BUN 9Comment: Testing performed 6 - 23 mg/dL [facility], [address] [place] [id number] Specimen Blood Performing Organization Address City/State/ZIP Code Phon e Number [place], [place] [id number] [place] [address] ALT (10/06/2020 8:29 AM CDT) Pathologist Sig nature ALT 8Comment: Testing performed at <=33 U/L A[facility], [address] [place] [address] Specimen Blood Performing Organization Address City/State/ZIP Code Phon e Number [facility] [place] [address] [place] [address] Aspartate Aminotransferase (10/06/2020 8:29 AM CDT) Pathologist Sig [facility] AST 13Comment: Testing performed <=32 U/L [facility], [address] [place] [address] Specimen Blood Performing Organization Address City/State/ZIP Code Phon e Number [place], [place] [id number] [place] [address] Total Protein (10/06/2020 8:29 AM CDT) Pathologist Sig [facility] Total Protein 7.3Comment: Testing 6.4 - 8.3 g/dL [place] performed at [facility], [address] [place] [address] Specimen Blood Performing Organization Address City/State/ZIP Code Phon e [address] Phosphorus Level (10/06/2020 8:29 AM CDT) Pathologist Sig [facility] Phosphorus 3.3Comment: Testing 2.5 - 4.5 mg/dL [place] performed at [facility], [address] [place] [address] Specimen Blood Performing Organization Address City/State/ZIP Code Phon e [address] Alkaline Phosphatase (10/06/2020 8:29 AM CDT) Pathologist Sig [facility] Alk Phos 92Comment: Testing 35 - 104 U/L [place] performed at [facility], [address] [place] [address] Specimen Blood Performing Organization Address City/State/ZIP Code Phon e [address] Magnesium Level (10/06/2020 8:29 AM CDT) Pathologist Sig [facility] Magnesium 2.0Comment: Testing 1.6 - 2.6 mg/dL [place] performed at [facility], [address] [place] [address] Specimen Blood Performing Organization Address City/State/ZIP Code Phon e [address] LDH (10/06/2020 8:29 AM CDT) Pathologist Sig [facility] LDH 251 (H) 135 - 214 U/L [place] Comment: Results greater than 1651 U/ L may not be reliable due to matrix effect with extended dilution as it exceeds the pharmacist hospital s recommended limit. Caution should be exercised when interpreting such jenelle ues and done in conjunction with clinical context. Testing performed at [facility], [address] [place] [address] Specimen Blood Performing Organization Address City/[facility] [place] [address] [place] [address] Glucose Level (10/06/2020 8:29 AM CDT) Pathologist Sig nature Glucose Level 94 70 - 99 mg/dL [place] Comment: Effective 09/03/15, the gluco se reference intervals have been updated based on [employer] guidelines (Standards of Medical Care in Diabetes 2016. Diabetes Care 2016; 39: S13-S22). Fasting blood glucose: Normal: 70-99 mg/dL Impaired fasting glucose (in creased risk for diabetes or pre-diabetes): 100- 125 mg/dL Diabetes mellitus: >/=126 mg/dL Random blood glucose: Normal: 70-199 mg/dL Note: Random glucose >100 mg/dL is assoc iated with increased risk for diabetes Testing performed at [facility], [address] [place] [address] Specimen Blood Performing Organization Address City/[facility] Phon e Number [place], [place] [id number] [place] [address] [place] (10/06/2020 8:29 AM CDT) Pathologist Sig [facility] [place] 11 pg/mL [facility] Comment: CANCER CENTER REFERENCE VALUE ------ <100 Reference ranges valid for >= 8 hour fast. Test Performed by: [facility] [address] [facility], [place] [address] [place]: Al Pichardo M.D. Ph.D.; CLIA# [id number] Specimen Blood Performing Organization Address City/State/ZIP Code Phon e Number [facility] Unless otherwise noted, [place] [address] CENTER all lab tests performed by: Division of Pathology and Laboratory Medicine [address] [place] Calcium Level (10/06/2020 8:29 AM CDT) Pathologist Sig nature Calcium Lvl 9.3Comment: Testing 8.4 - 10.2 mg/dL [place] performed at [facility], [address] [place] [address] Specimen Blood Performing Organization Address City/State/ZIP Code Phon e Number [place], [place] [id number] [place] [address] Albumin Level (10/06/2020 8:29 AM CDT) Pathologist Sig nature Albumin Lvl 4.2Comment: Testing 3.5 - 5.2 gm/dL [place] performed at [facility], [address] [place] [address] Specimen Blood Performing Organization Address City/[facility]/ZIP Code [place] [address] [place] [address] Electrolyte Panel (10/06/2020 8:29 AM CDT) Pathologist Sig nature Sodium Lvl 140Comment: Testing 136 - 145 mEq/L [place] performed at [facility], [address] [place] [address] Potassium Lvl 4.4Comment: Testing 3.5 - 5.1 mEq/L [place] performed at [facility], [address] [place] [address] Chloride 103Comment: Testing 98 - 107 mEq/L [place] performed at [facility], [address] [place] [address] CO2 27Comment: Testing 22 - 29 mEq/L [place] performed at [facility], [address] [place] [address] Anion Gap 10Comment: Testing 4 - 14 mEq/L [place] performed at [facility], [address] [place] [address] Specimen Blood Performing Organization Address City/State/ZIP Code Phon e Number [place], [place] [id number] [place] [address] OSI MRI ABDOMEN (08/12/2020 1:42 PM CDT) Specimen Narrative Performed At Study acquired at another institution. For comparison only. No MD [facility] originated interpretation requested or available. OSI PET CT Skull to Mid Thigh (07/28/2020 2:02 PM CDT) Specimen Narrative Performed At Study acquired at another institution. For comparison only. No [facility] originated interpretation requested or available. OSI CT Abdomen and Pelvis (05/07/2020 2:02 PM CDT) Specimen Narrative Performed At Study acquired at another institution. For comparison only. No [facility] originated interpretation requested or available. after 10/12/2019 Insurance Payer Benefit Plan / Subscriber ID Effective Dates Phone Addre ss Type Group [employer] O [id number] 2014-Present HMO
--- OUTSIDE RECORDS SUMMARY | 2020-10-11 14:54 | XMS REPORT | Continuity of Care Document ---
:1980 Author Organization [facility] t Address [address] [place] [place] [address] Care Team Providers Name Role Phone [phone] Primary Care Physician Unavailable SYSTEM, NOT IN Attending Clinician Unavailable Jose BOLDEN, C Attending Clinician Shari BOLDEN Attending Clinician SHARI Attending Clinician Unavailable Erick BOLDEN, Tiago Attending Clinician Leann LOBO Attending Clinician Unavailable Aaron Gonzalez MD Attending Clinician Lalit MCCARTHY Attending Clinician Unavailable iKel Toney DO Attending Clinician Jose THAO Attending Clinician Unavailable Yessi WILDE Attending Clinician Payers Payer Name Policy Type Policy Number Effective Date Expiration Date Francisco cooper AETNA MANAGED [id number] 2014 MD Galvan CAREAETNA 00:00:00 [id number] Problems Condition Condition Condition Status Onset Resolution Last Treating Co mments Source Name Details Category Date Date Treatment Clinician Date POSSIBLE Diagnosis Active 2020-10-06 Mona valdesa NEUROENDOC 10-02 09:34:00 l RINE TUMOR POSSIBLE 00:00: He rmann IN SMALL B NEUROENDOC 00 RINE TUMOR IN SMALL B Active 10/02/[address] [facility] POSSIBLE Diagnosis Active 2020-09-19 M [facility] NEUROENDOC 09-17 12:26:00 l RINE TUMOR POSSIBLE 00:00: He rmann IN SMALL B NEUROENDOC 00 RINE TUMOR IN SMALL B Active 09/17/[address] [facility] K86.89 - Diagnosis [facility]09-09 [facility] 08-12 11:06:00 l SPECIFIED K86.89 - 00:01: Her orosco DISEASES OTHER 00 OF PA SPECIFIED DISEASES OF PA Active 08/12/2020 [facility] [place] PANCREATIC Diagnosis Active 2020-08-15 Memoria MASS 07-30 11:27:00 l 00:00: Forrest PANCREATIC 00 MASS Active 07/30/[address] [facility] R10.84 - Diagnosis Active 2020-07-28 M emoria GENERALIZE 07-11 06:21:00 l D R10.84 - 00:01: Geo n ABDOMINAL GENERALIZE 00 PAIN R79. D ABDOMINAL PAIN R79. [facility] SINUS Diagnosis Active 2019-04-11 Mem oria INFECTION 3-04 23:45:00 l SINUS 00:00: [place] INFECTION 00 Active 04/11/[address] [facility] G08 - Diagnosis Active 2019-05-13 Mem oria INTRACRANI 3-02 15:36:00 l AL AND G08 - 00:01: [place] INTRASPINA INTRACRANI 00 L P AL AND INTRASPINA L P Active 04/09/2019 OPID Forrest 3 Diagnosis Active 2018-09-12 Mem oria 8-05 06:38:00 l 3 00:00: [place] 00 Active 09/11/[address] [facility] BENIGN Diagnosis Active 2018-04-05 Mem oria INTRACRANI 2- 11:42:00 l AL BENIGN 00:00: [place] HYPERTENSI INTRACRANI 00 ON AL HYPERTENSI ON Active [address] [facility] INTRACRANI Diagnosis Active 2018-03-28 Memoria AL AND 2 05:40:00 l INTRASPINA 00:00: Geo n L INTRACRANI 00 PHLEBITIS AL AND A INTRASPINA L PHLEBITIS A Active 03/17/[address] [facility] HEADACHE Diagnosis Active 2018-03-08 M emoria 03-07 19:53:00 l HEADACHE 00:00: Geo n [address] [facility] SEVERE Diagnosis Active 2018-03-05 Mem oria HEADACHE 03-05 14:07:00 l SEVERE 00:00: [place] HEADACHE 00 Active 03/05/[address] [facility] HEADACHES Diagnosis Active 2018-02-27 Memoria 02-27 16:27:00 l 00:00: Forrest HEADACHES 00 Active 02/27/[address] [facility] SYNCOPE Diagnosis Active 2017-08-11 Me moria 08-09 15:35:00 l SYNCOPE 00:00: Forrest 00 Active 08/09/[address] [facility] Intracrani Intracrani Disease Active Overview : Methodi al al 08-[address] hypertensi hypertensi 00:00: g of this Hospita on on note l might be different from the original. Stent in transvers e sinus 03/2018 MIGRAINE Diagnosis Active 2017-08-18 M emoria 08-06 21:50:00 l MIGRAINE 00:00: Geo n 00 Active 08/06/2017 [facility] Status Status Disease Active Methodi migrainosu migrainosu 05-14 st s s 00:00: Hospita 00 l Chest pain Chest pain Disease Active 2016-02 M ethodi 03-07 st 00:00: Hospita 00 l Migraine Migraine Disease Active Metho di with with 03-04 st status status 00:00: Hospita migrainosu migrainosu 00 l s s Acquired Acquired Disease Active Metho di hypothyroi hypothyroi 02-15 st dism dism 00:00: Hospita 00 l Endometrio Endometrio Disease Active M D sis of sis of 3-07 Anderso pelvic pelvic 00:00: n peritoneum peritoneum 00 Right Right Disease Active MD upper upper 2-29 Anderso quadrant quadrant 00:00: n pain pain 00 FLANK PAIN Diagnosis Active 2015-03-31 Memoria 2- 13:18:00 l FLANK 00:00: [place] PAIN 00 Active 03/31/2015 [facility] PID Diagnosis Active 2014-08-30 Mem oria 08-26 07:34:00 l PID 00:00: [place] 00 Active 08/26/2014 [facility] WEAKNESS Diagnosis Active 2014-08-26 M emoria 08-26 18:39:00 l WEAKNESS 00:00: Geo n 00 Active 08/26/2014 [facility] DIZZINESS Diagnosis Active 2014-08-29 Memoria 08-26 08:36:00 l 00:00: [place] DIZZINESS 00 Active 08/26/2014 [facility] ABDOMINAL Condition Active 2014-08-15 Memoria PAIN, 08-15 09:43:31 l RIGHT 00:00: [place] LOWER ABDOMINAL 00 QUADRANT PAIN, RIGHT LOWER QUADRANT Active 08/15/2014 [facility] RADIAL Diagnosis Active 2014-09-09 Mem oria VEIN 08-05 13:38:00 l THROMBOSIS RADIAL 00:00: Herm mey VEIN 00 THROMBOSIS Active 08/05/2014 [facility] ARM Diagnosis Active 2014-08-05 Mem oria SWELLING 08-05 13:27:00 l ARM 00:00: [place] SWELLING 00 Active 08/05/2014 [facility] ABDOMINAL Diagnosis Active 2014-04-04 Memoria PAIN 04-04 13:10:00 l 00:00: [place] ABDOMINAL 00 PAIN Active 04/04/2014 [facility] Deep vein Deep vein Disease Active Overview: Methodi thrombosis thrombosis 02-[address] 00:00: g of this Hospita 00 note l might be different from the original. had blood clot to left arm from IV, treated with bld.thinn er for 6 mos.and cleared now. MS Diagnosis Active 2010-022011-01-29 Mem oria 03-29 08:48:00 l MS 00:00: Forrest 00 Active 01/26/[address] [facility] [address] SENT Diagnosis Active 2010-022011-05-12 Me moria 03-11 11:11:[address] SENT 00:00: [place] 00 Active 01/08/2011 [facility] Anxiety Anxiety Disease Active Methodi and and st depression depression Ho spita l Personal Problem 2018-09-26 Mem oria history of 15:24:51 l malignant Personal Her orosco neoplasm history of of thyroid malignant neoplasm of thyroid 09/26/[address] [facility] Hormone Problem 2018-09-26 Rafael cristina replacemen 15:24:51 l t therapy Hormone Herm mey (postmenop replacemen ausal) t therapy (postmenop ausal) 09/26/[address] [facility] Personal Problem 2018-09-26 Mem oria history of 15:24:51 l other Personal Geo n venous history of thrombosis other and venous embolism thrombosis and embolism 09/26/[address] [facility] Personal Problem 2018-09-26 Mem oria history of 15:24:51 l infections Personal He rmann of the history of central infections nervous of the system central nervous system 09/26/[address] [facility] Hemochroma Problem 2018-09-22 M emoria tosis, 12:40:34 l unspecifie Geo n d Hemochroma tosis, unspecifie d 09/22/[address] [facility] Blood clot Problem Resolve 2015-04-03 Memoria (morpholog d 05:50:25 l ic Blood [place] abnormalit clot y) (morpholog ic abnormalit y) Resolved Problem 04/03/2015 [facility] Benign Problem Resolve 2020-09-19 Rafael cristina intracrani d 01:27:14 l al Benign [place] hypertensi intracrani on al (disorder) hypertensi on (disorder) Resolved Problem 09/19/2020 [facility] her Neuro,[facility], [place],[facility] Disorder Problem Resolve 2020-09-19 Me moria of d 01:27:14 l meninges Disorder Herm mey (disorder) of meninges (disorder) Resolved Problem 09/19/2020 Medical Group,[facility], [place],[facility] Endometrio Problem Resolve 2020-09-19 Memoria sis d 01:27:14 l (disorder) Geo n Endometrio sis (disorder) Resolved Problem 09/19/2020 Medical Group,[facility] her Neuro,[facility], [place],M GA[place],[facility], [facility], GAEL [place],[facility] EDRI Malignant Problem Resolve 2020-09-19 M emoria tumor of d 01:27:14 l thyroid Forrest gland Malignant (disorder) tumor of thyroid gland (disorder) Resolved Problem 09/19/2020 Medical Group,[facility] her Neuro,[facility], [place],M H [place],[facility], [facility], GAEL [place],[facility] EDRI Meningitis Problem Resolve 2020-09-19 Memoria (disorder) d 01:27:14 l [place] Meningitis (disorder) Resolved Problem 09/19/2020 Medical Group,[facility] her Neuro,[facility] GA[place],[facility], [facility], [place],[facility] EDRI Cerebral Problem Active 2020-09-19 Mem oria venous 01:27:14 l sinus Cerebral Geo n thrombosis venous (disorder) sinus thrombosis (disorder) Active Problem 09/19/2020 Medical Group,[facility] her Neuro,[facility], [place],[facility], EDRI History of Problem Active 2020-09-19 M emoria idiopathic 01:27:14 l intracrani History Her orosco al of hypertensi idiopathic on intracrani al hypertensi on Active Problem Medical Group,[facility] her Neuro,[facility], [place],[facility], EDRI Hypothyroi Problem Active 2020-09-19 M emoria dism 01:27:14 l (disorder) Geo n Hypothyroi dism (disorder) Active Problem 09/19/2020 Medical Group,[facility] her Neuro,[facility], [place], Valentin [place],[facility], [facility], GAEL [place],[facility] EDRI Morbid Problem Active 2020-09-19 Memor ia obesity 01:27:14 l (disorder) Morbid Herm mey obesity (disorder) Active Problem 09/19/2020 Medical Group,[facility] her Neuro,[facility], [place],[facility] GAEL [place],[facility], [facility], EDRI FEM PELV Diagnosis Active 2014-08-30 M emoria INFLAM DIS 07:34:00 l NOS FEM PELV Geo n INFLAM DIS NOS Active [facility] AC Diagnosis Active 2014-09-09 Mem oria DVT/EMBL 13:38:00 l UP EXT AC Forrest DVT/EMBL UP EXT Active [facility] SYNCOPE Diagnosis Active 2017-08-11 Me moria AND 15:35:00 l COLLAPSE SYNCOPE Citlali nn AND COLLAPSE Active [facility] MIGRAINE, Diagnosis Active 2017-08-18 Memoria UNSPECIFIE 21:50:00 l D, Forrest INTRACTABL MIGRAINE, E, WITH UNSPECIFIE D, INTRACTABL E, WITH Active [facility] Cancer Diagnosis Active 2020-10-06 Mem oria 13:56:56 l Cancer [place] Active 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 Essential Problem 2018-09-17 Me moria (primary) 12:37:52 l hypertensi Geo n on Essential (primary) hypertensi on 09/17/[address] [facility] Hypothyroi Problem 2018-09-26 M emoria dism, 15:24:51 l unspecifie Geo n d Hypothyroi dism, unspecifie d 09/26/[address] [facility] Other long Problem 2018-09-17 M emoria term 12:37:52 l (current) Other Geo n drug senior living therapy (current) drug therapy 09/17/[address] [facility] Anesthesia Problem 2018-09-26 M emoria of skin 15:24:51 l [place] Anesthesia of skin 09/26/[address] [facility] Nausea Problem 2018-09-26 Memor ia 15:24:51 l Nausea [place] 09/26/[address] [facility] Other Problem 2018-09-26 Memor ia visual 15:24:51 l disturbanc Other Citlali nn es visual disturbanc es 09/26/[address] [facility] Benign Problem 2018-09-26 Memor ia intracrani 15:24:51 l al Benign [place] hypertensi intracrani on al hypertensi on 09/26/[address] [facility] Allergy Problem 2018-09-26 Rafael cristina status to 15:24:51 l sulfonamid Allergy Her orosco es status status to sulfonamid es status 09/26/[address] [facility] Allergy Problem 2018-09-26 Rafael cristina status to 15:24:51 l other Allergy [place] drugs, status to medicament other s and drugs, biological medicament substances s and status biological substances status 09/26/[address] [facility] History of Past Illness Condition Condition Condition Status Onset Resolution Last Treating Co mments Source Name Details Category Date Date Treatment Clinician Date Other Problem 2019-04-14 2019-04-14 M emoria specified 04-11 22:03:13 22:03:13 l disorders Other 18:00: Geo hicks of nose specified 00 and nasal disorders sinuses of nose and nasal sinuses 04/12/2019 04/14/[address] [facility] Migraine, Problem 2018-09-26 2018-09-26 Memoria unspecifie 04-01 15:24:51 15:24:51 l d, not 03:50: Forrest intractabl Migraine, 47 e, with unspecifie status d, not migrainosu intractabl s e, with status migrainosu s 04/01/2018 09/26/[address] [facility] Personal Problem 2018-09-22 2018-09-22 Memoria history of 03-05 12:40:34 12:40:34 l other Personal 06:00: Geo hicks diseases history of 00 of the other nervous diseases system and of the sense nervous organs system and sense organs 03/05/2018 09/22/[address] [facility] Chronic Problem 2018-09-17 2018-09-17 Memoria migraine 03-04 12:37:52 12:37:52 l without Chronic 04:20: Geo hicks aura, not migraine 24 intractabl without e, without aura, not status intractabl migrainosu e, without s status migrainosu s 03/04/2018 09/17/[address] [facility] Discharge Problem 2015-04-03 2015-04-03 Memoria Diagnosis: 2-22 05:50:25 05:50:25 l Unspecifie 06:00: Geo n d Discharge 00 abdominal Diagnosis: pain Unspecifie d abdominal pain 03/31/2015 04/03/2015 [place] Discharge Problem 2014-09-02 2014-09-02 Memoria Diagnosis: 7-20 01:22:45 01:22:45 l Abdominal 05:00: [place] pain Discharge 00 Diagnosis: Abdominal pain 08/26/2014 09/02/2014 [place] Discharge Problem 2014-09-02 2014-09-02 Memoria Diagnosis: 7- 01:22:45 01:22:45 l Dizziness 05:00: Forrest Discharge 00 Diagnosis: Dizziness 08/26/2014 09/02/2014 [place] Discharge Problem 2014-04-06 2014-04-06 Memoria Diagnosis: 2- 19:20:19 19:20:19 l Acute 06:00: [place] right Discharge 00 lower Diagnosis: quadrant Acute pain right lower quadrant pain 04/04/2014 04/06/2014 [facility] Allergies, Adverse Reactions, Alerts Allergy Allergy Status Severity Reaction(s) Onset Inactive Treating Comm ents Source Name Type Date Date Clinician Metoclop Propensi Active Diarrhea Meth garth ramide ty to 1-25 st Hcl adverse 00:00: Hospita reaction 00 l s to drug Reglan Reglan Active High, Diarrhea, GI Rafael cristina High Intolerance 1-25 l 00:00: [place] 00 sulfa sulfa Active Memoria drugs<johnson drugs<johnson 7-09 l p>1</sup p>1</sup 05:00: Geo n > > 00 SULFA SULFA Active Memoria 7-09 l 00:00: [place] 00 Sulfa Propensi Active Rash Methodi (Sulfona ty to 5-06 st mide adverse 00:00: Hospita Antibiot reaction 00 l ics) s to drug sulfa sulfa Active Memoria drugs drugs l [place] Family History Family Member Diagnosis Comments Start Date Stop Date Source Natural father Thyroid cancer [place] coral Natural father Diabetes [facility] Natural father Thyroid disease [facility] Maternal grandmother -Other cancer Mona Galvan Maternal grandmother Bile duct cancer MD Galvan Maternal grandmother Cervical cancer MD Galvan Maternal grandmother Melanoma MD Alyse to[place] Maternal grandmother Skin cancer MD Galvan Maternal grandmother Thyroid cancer MD Galvan Maternal grandmother Cancer [facility] Maternal uncle Heart attack [place] son Paternal aunt Stomach cancer MD [place] Maternal grandfather Diabetes [facility] Natural mother Fibromyalgia [facility] Paternal grandfather Colon cancer [facility] Social History Social Habit Start Date Stop Date Quantity Comments Source Exposure to Not sure MD Galvan SARS-CoV-2 (event) Tobacco use and 2020-04-07 2020-04-07 Never used [facility] exposure 00:00:00 00:00:00 Hospital Alcohol intake 2020-04-07 2020-04-07 Current drinker Metho dist 00:00:00 00:00:00 of alcohol Hospital (finding) Social History 2017-08-09 2017-08-09 [facility] 15:05:47 15:05:47 Alcohol Comment 2015-12-01 2015-12-01 social [facility] 00:00:00 00:00:00 Hospital Tobacco Comment 2015-04-14 2015-04-14 Does not work 00:00:00 00:00:00 outside of the home Sex Ass[birth year] [facility] 00:00:00 00:00:00 Hospital Smoking Status Start Date Stop Date Source Unknown if ever smoked [facility] smoker [facility] Medications Ordered Filled Start Stop Current Ordering Indication Dosage Frequency Signature Comments Components Source Medication Medication Date Date Medication? Clinician (SIG) Name Name escitalopra Yes 20mg Take 20 mg MD mona (LEXAPRO) 8-30 by mouth Jake rso 20 mg 17:58: daily. n tablet 31 levothyroxi Yes 1{tbl} Take 1 MD ne 8-30 tablet by Andersjoaquina (SYNTHROID, 17:58: mouth n LEVOTHROID) 31 daily. 112 mcg tablet levothyroxi Yes Take 1 Rafael cristina ne 8-30 tablet by crystal (SYNTHROID, 13:56: mouth Citlali nn LEVOTHROID) 56 daily. 112 mcg tablet HYDROcodone 2020- No 1{tbl} Take 1 M D -acetaminop 8-16 08-16 tablet by An josué mcneil (NORCO) 19:12: 00:00 mouth as n 10 mg-325 25 :00 needed. mg per tablet HYDROcodone No Take 1 Rafael cristina -acetaminop 8-16 tablet by l hen (NORCO) 00:00: mouth as He rmann 10 mg-325 00 needed. mg per tablet Promethazin Yes 25 mg = 1 M emoria e 6-25 tab, PO, l Hydrochlori 18:21: Q6H, PRN He rmann de 25 MG 00 as needed Oral Tablet for nausea/vom iting Promethazin Yes 25 mg = 1 M emoria e 6-25 tab, PO, l Hydrochlori 18:21: Q6H, PRN He rmann de 25 MG 00 as needed Oral Tablet for nausea/vom iting Estradiol Yes 2 mg, PO, Mem oria 6-25 Daily l 18:20: [place] escitalopra Yes 20 mg = 1 M emoria m 20 mg 6-25 tab, PO, l oral tablet 18:20: Daily Citlali Estradiol Yes 2 mg, PO, Mem oria 6-25 Daily l 18:20: [place] escitalopra Yes 20 mg = 1 M emoria m 20 mg 6-25 tab, PO, l oral tablet 18:20: Daily Citlali nn estradiol Yes 1{tbl} Take 1 MD (ESTRACE) 2 6-25 tablet by And erso mg tablet 00:00: mouth n 00 daily. estradiol Yes Take 1 Memori a (ESTRACE) 2 6-25 tablet by l mg tablet 00:00: mouth Forrest 00 daily. estradioL Yes TAKE 1 Method i (ESTRACE) 2 4-[address] MG tablet 00:00: MOUTH Hospita 00 EVERY DAY l estradioL Yes TAKE 1 Method i (ESTRACE) 2 4-[address] MG tablet 00:00: MOUTH Hospita 00 EVERY DAY l estradioL 2020- No 2mg QD Take 1 Metho di (Estrace) 2 3-29 04-26 tablet (2 st MG tablet 00:00: 00:00 mg total) Ho spita 00 :00 by mouth l daily. estradioL 2020- No 2mg QD Take 1 Metho di (Estrace) 2 05-05 tablet (2 st MG tablet 00:00: 00:00 mg total) Ho spita 00 :00 by mouth l daily. estrogens, [id number] TAKE 1 Methodi conjugated, 04-[address] (Premarin) 00:00: 00:00 (1.25 MG Ho spita 1.25 MG 00 :00 TOTAL) BY l tablet MOUTH DAILY. estrogens, [id number] TAKE 1 Methodi conjugated, 04-[address] (Premarin) 00:00: 00:00 (1.25 MG Ho spita 1.25 MG 00 :00 TOTAL) BY l tablet MOUTH DAILY. estrogens, [id number] TAKE 1 Methodi conjugated, 04-[address] (Premarin) 00:00: 00:00 (1.25 MG Ho spita 1.25 MG 00 :00 TOTAL) BY l tablet MOUTH DAILY. estrogens, [id number] TAKE 1 Methodi conjugated, 04-[address] (Premarin) 00:00: 00:00 (1.25 MG Ho spita 1.25 MG 00 :00 TOTAL) BY l tablet MOUTH DAILY. Premarin TAKE 1 Method i 1.25 mg 03-[address] tablet 00:00: 00:00 (1.25 MG Hospit a 00 :00 TOTAL) BY l MOUTH DAILY. LAST REFILL- NEEDS AN APT!!! estradioL 2020- Please Metho di (ESTRACE) 2 03-[address] MG tablet 00:00: 00:00 directions H ospita 00 :00 , refills l and quantity Premarin 2020- No TAKE 1 Method i 1.25 mg -31 03- TABLET st tablet 00:00: 00:00 (1.25 MG Hospit a 00 :00 TOTAL) BY l MOUTH DAILY. LAST REFILL- NEEDS AN APT!!! estradioL 2020- Please Metho di (ESTRACE) 2 03-[address] MG tablet 00:00: 00:00 directions H ospita 00 :00 , refills l and quantity sucralfate 2020- No 1g Q.25D Take 1 Met hodi (Carafate) 03-28- tablet (1 st 1 gram 00:00: 04:59 g total) Hospit a tablet 00 :00 by mouth 4 l (four) times a day for 30 days. pantoprazol 2020- No 20mg QD Take 1 Met hodi e 03-28- tablet (20 st (PROTONIX) 00:00: 04:59 mg total) H ospita 20 MG EC 00 :00 by mouth l tablet daily for 30 days. promethazin 2020- No 25mg Q6H Take 1 Met hodi e 03-28- tablet (25 st (PHENERGAN) 00:00: 04:59 mg total) Hospita 25 MG 00 :00 by mouth l tablet every 6 (six) hours as needed for nausea or vomiting for up to 30 days. sucralfate 2020- No 1g Q.25D Take 1 Met hodi (Carafate) 03-28 tablet (1 st 1 gram 00:00: 04:59 g total) Hospit a tablet 00 :00 by mouth 4 l (four) times a day for 30 days. pantoprazol 2020- No 20mg QD Take 1 Met hodi e 03-28- tablet (20 st (PROTONIX) 00:00: 04:59 mg total) H ospita 20 MG EC 00 :00 by mouth l tablet daily for 30 days. promethazin 2020- No 25mg Q6H Take 1 Met hodi e 03-28- tablet (25 st (PHENERGAN) 00:00: 04:59 mg total) Hospita 25 MG 00 :00 by mouth l tablet every 6 (six) hours as needed for nausea or vomiting for up to 30 days. hyoscyamine 2020- No .125mg Q4H Take 1 M ethodi (Levsin/SL) 03-[address] 0.125 mg SL 00:00: 05:59 (0.125 mg Hospita tablet 00 :00 total) by l mouth every 4 (four) hours as needed for cramping for up to 30 days. hyoscyamine No .125mg Q4H Take 1 M ethodi (Levsin/SL) 03-19- tablet st 0.125 mg SL 00:00: 05:59 (0.125 mg Hospita tablet 00 :00 total) by l mouth every 4 (four) hours as needed for cramping for up to 30 days. HYDROcodone No 1{tbl} Q6H Take 1 Methodi -acetaminop 2-10 - tablet by st hen (HOTELbeat) 00:00: 05:59 mouth [facility] 5-325 mg 00 :00 every 6 l per tablet (six) hours as needed for moderate pain for up to 10 days .acute pain. Max Daily Amount: 4 tablets HYDROcodone 1{tbl} Q6H Take 1 Methodi -acetaminop 2-10 - tablet by st hen ([place]) 00:00: 05:59 mouth [facility] 5-325 mg 00 :00 every 6 l per tablet (six) hours as needed for moderate pain for up to 10 days .acute pain. Max Daily Amount: 4 tablets estrogens, No 1.25mg QD Take 1 Me thodi conjugated, 06-27- tablet st (Premarin) 00:00: 00:00 (1.25 mg Ho spita 1.25 MG 00 :00 total) by l tablet mouth daily. LAST REFILL- NEEDS AN APT!!! estrogens, No 1.25mg QD Take 1 Me thodi conjugated, 06-27- tablet st (Premarin) 00:00: 00:00 (1.25 mg Ho spita 1.25 MG 00 :00 total) by l tablet mouth daily. LAST REFILL- NEEDS AN APT!!! Iohexol No 100 mL, Memoria 3-05 Route: l 07:37: IVP, Drug Forrest Form: SOLN, Dosing Weight 102.273, kg, ONCALL, STAT, Start date: 04/12/19 1:37:00 [employer] SPECIALIST, Duration: 1 doses or times, Dose = 2.2ml/kg, Max dose = 100ml -- "To be infused by Radiology Staff ONLY" Iohexol 2020-0 No 100 mL, Memoria 3-05 Route: l 07:37: IVP, Drug Forrest 00 Form: SOLN, Dosing Weight 102.273, kg, ONCALL, STAT, Start date: 04/12/19 1:37:00 OIL AND GAS SPECIALIST, Duration: 1 doses or times, Dose = 2.2ml/kg, Max dose = 100ml -- "To be infused by Radiology Staff ONLY" Iohexol 2020-0 No 100 mL, Memoria 3-05 Route: l 07:32: IVP, Drug [place] 00 Form: SOLN, Dosing Weight 102.273, kg, ONCALL, STAT, Start date: 04/12/19 1:32:00 OIL AND GAS SPECIALIST, Duration: 1 doses or times, Dose = 2.2ml/kg, Max dose = 100ml -- "To be infused by Radiology Staff ONLY" Iohexol 2020-0 No 100 mL, Memoria 3-05 Route: l 07:32: IVP, Drug [place] 00 Form: SOLN, Dosing Weight 102.273, kg, ONCALL, STAT, Start date: 04/12/19 1:32:00 OIL AND GAS SPECIALIST, Duration: 1 doses or times, Dose = 2.2ml/kg, Max dose = 100ml -- "To be infused by Radiology Staff ONLY" Morphine 2020-0 No 4 mg, Memoria 3-05 Route: l 07:18: IVP, ONCE, [place] 00 Dosing Weight 102.273, kg, Priority: STAT, Start date: 04/12/19 1:18:00 OIL AND GAS SPECIALIST, Stop date: 04/12/19 1:18:00 OIL AND GAS SPECIALIST Zofran 2020-0 No 4 mg, Memoria 3-05 Route: l 07:18: IVP, Drug [place] 00 form: INJ, ONCE, Dosing Weight 102.273, kg, Priority: STAT, Start date: 04/12/19 1:18:00 OIL AND GAS SPECIALIST, Stop date: 04/12/19 1:18:00 OIL AND GAS SPECIALIST Morphine 2020-0 No 4 mg, Memoria 3-05 Route: l 07:18: IVP, ONCE, [place] 00 Dosing Weight 102.273, kg, Priority: STAT, Start date: 04/12/19 1:18:00 OIL AND GAS SPECIALIST, Stop date: 04/12/19 1:18:00 OIL AND GAS SPECIALIST Zofran 2020-0 No 4 mg, Memoria 3-05 Route: l 07:18: IVP, Drug form: INJ, ONCE, Dosing Weight 102.273, kg, Priority: STAT, Start date: 04/12/19 1:18:00 OIL AND GAS SPECIALIST, Stop date: 04/12/19 1:18:00 OIL AND GAS SPECIALIST Acetaminoph 2019-0 No 1,000 mg, M emoria en 09-12 Route: PO, l 20:55: ONCE, Dosing Weight 98.636, kg, PRN Pain Score 1-3, Start date: 09/12/18 15:55:00 CDT Acetaminoph 2019-0 No 1,000 mg, M emoria en 09-12 Route: PO, l 20:55: ONCE, [place] 00 Dosing Weight 98.636, kg, PRN Pain Score 1-3, Start date: 09/12/18 15:55:00 CDT Omnipaque 2019-0 No 55 mL, Memori a 300 09-12 Route: l 16:35: INTRAARTER [place] 00 IAL, Dosing Weight 98.636, kg, ONCE, Start date: 09/12/18 11:35:00 CDT, Stop date: 09/12/18 11:35:00 CDT Omnipaque 2019-0 No 55 mL, Memori a 300 09-12 Route: l 16:35: INTRAARTER [place] 00 IAL, Dosing Weight 98.636, kg, ONCE, Start date: 09/12/18 11:35:00 CDT, Stop date: 09/12/18 11:35:00 CDT Versed 2019-0 No 1 mg, Memoria 09-12 Route: IV, l 16:31: ONCE, Dosing Weight 98.636, kg, Start date: 09/12/18 11:31:00 CDT, Stop date: 09/12/18 11:31:00 CDT Versed 2019-0 No 1 mg, Memoria 09-12 Route: IV, l 16:31: ONCE, Dosing Weight 98.636, kg, Start date: 09/12/18 11:31:00 CDT, Stop date: 09/12/18 11:31:00 CDT Versed 2019-0 No 1 mg, Memoria 8-06 Route: IV, l 16:26: ONCE, [place] 00 Dosing Weight 98.636, kg, Start date: 09/12/18 11:26:00 CDT, Stop date: 09/12/18 11:26:00 CDT Versed 2019-0 No 1 mg, Memoria 8-06 Route: IV, l 16:26: ONCE, [place] 00 Dosing Weight 98.636, kg, Start date: 09/12/18 11:26:00 CDT, Stop date: 09/12/18 11:26:00 CDT Versed 2019-0 No 1 mg, Memoria 8-06 Route: IV, l 16:24: ONCE, [place] 00 Dosing Weight 98.636, kg, Start date: 09/12/18 11:24:00 CDT, Stop date: 09/12/18 11:24:00 CDT Fentanyl 2019-0 No 50 Memoria 8-06 microgram, l 16:24: Route: IV, [place] ONCE, Dosing Weight 98.636, kg, Start date: 09/12/18 11:24:00 CDT, Stop date: 09/12/18 11:24:00 CDT Versed 2019-0 No 1 mg, Memoria 8-06 Route: IV, l 16:24: ONCE, [place] 00 Dosing Weight 98.636, kg, Start date: 09/12/18 11:24:00 CDT, Stop date: 09/12/18 11:24:00 CDT Fentanyl 2019-0 No 50 Memoria 8-06 microgram, l 16:24: Route: IV, [place] 00 ONCE, Dosing Weight 98.636, kg, Start date: 09/12/18 11:24:00 CDT, Stop date: 09/12/18 11:24:00 CDT Versed 2019-0 No 1 mg, Memoria 8-06 Route: IV, l 16:19: ONCE, [place] 00 Dosing Weight 98.636, kg, Start date: 09/12/18 11:19:00 CDT, Stop date: 09/12/18 11:19:00 CDT Fentanyl 2019-0 No 50 Memoria 8-06 microgram, l 16:19: Route: IV, [place] 00 ONCE, Dosing Weight 98.636, kg, Start date: 09/12/18 11:19:00 CDT, Stop date: 09/12/18 11:19:00 CDT Versed 2018- No 1 mg, Memoria 8-06 Route: IV, l 16:19: ONCE, [place] 00 Dosing Weight 98.636, kg, Start date: 09/12/18 11:19:00 CDT, Stop date: 09/12/18 11:19:00 CDT Fentanyl 2019- No 50 Memoria 8-06 microgram, l 16:19: Route: IV, [place] 00 ONCE, Dosing Weight 98.636, kg, Start date: 09/12/18 11:19:00 CDT, Stop date: 09/12/18 11:19:00 CDT PREMARIN 2018-0 2020- No [id number] TAKE 1 M ethodi 1.25 mg 5-16 03-[address] tablet 00:00: 00:00 (1.25 MG Hospit a 00 :00 TOTAL) BY l MOUTH DAILY. PREMARIN 2018-0 2020- No [id number] TAKE 1 M ethodi 1.25 mg 5-16 03-[address] tablet 00:00: 00:00 (1.25 MG Hospit a 00 :00 TOTAL) BY l MOUTH DAILY. Aspirin 81 2019-0 Yes 81 mg = 1 Me moria MG Enteric 3-20 tab, PO, l Coated 19:54: Daily, # [place] Tablet 00 90 tab, 3 Refill(s), Pharmacy: [facility] #[id number] Aspirin 81 2019-0 Yes 81 mg = 1 Me moria MG Enteric 3-20 tab, PO, l Coated 19:54: Daily, # [place] Tablet 00 90 tab, 3 Refill(s), Pharmacy: [facility] #[id number] ticagrelor 2019-0 Yes 60 mg = 1 Me moria 60 mg oral 3-20 tab, PO, l tablet 19:44: BID, # 60 Geo n 00 tab, 2 Refill(s), Pharmacy: [facility] #[id number] ticagrelor 2019-0 Yes 60 mg = 1 Me moria 60 mg oral 3-20 tab, PO, l tablet 19:44: BID, # 60 Geo n 00 tab, 2 Refill(s), Pharmacy: [facility] #[id number] aspirin 2019-0 Yes 1{tbl} Take 1 MD (Enteric 3-20 tablet by Mark o Coated 00:00: mouth n Aspirin) 81 00 daily. mg EC tablet aspirin Yes Take 1 Memoria (Enteric 3-20 tablet by l Coated 00:00: mouth [place] Aspirin) 81 00 daily. mg EC tablet aspirin Yes 81 mg = 1 Metho di (ENTERIC 3-20 tab, PO, st COATED 00:00: Daily, # [facility]osp[facility] ASPIRIN) 81 00 90 tab, 3 l MG enteric Refill(s), coated Pharmacy: tablet [facility] #[id number] aspirin Yes 81 mg = 1 Metho di (ENTERIC 3-20 tab, PO, st COATED 00:00: Daily, # Hospita ASPIRIN) 81 00 90 tab, 3 l MG enteric Refill(s), coated Pharmacy: tablet [facility] #[id number] ticagrelor 2020- No Brilinta Me thodi (BRILINTA) 3-20 -[address] 60 mg 00:00: 00:00 tablet Hospita tablet 00 :00 l ticagrelor 2020- No Brilinta Me thodi (BRILINTA) 3-20 02-[address] 60 mg 00:00: 00:00 tablet Hospita tablet 00 :00 l topiramate Yes See Memoria 25 MG Oral 3-19 Instructio l Tablet 22:19: ns, 1 tab Geo n [Topamax] 00 PO in AM, 2 tab in PM x 1 wk, then 1 tab BID x 1 wk, then 1 tab at night x 1 wk then STOP, # 120 tab, 2 Refill(s), Pharmacy: [facility] #[id number] topiramate Yes See Memoria 25 MG Oral 3-19 Instructio l Tablet 22:19: ns, 1 tab Geo n [Topamax] 00 PO in AM, 2 tab in PM x 1 wk, then 1 tab BID x 1 wk, then 1 tab at night x 1 wk then STOP, # 120 tab, 2 Refill(s), Pharmacy: [facility] #[id number] prasugrel 5 Yes 5 mg = 1 Me moria mg oral 3-15 tab, PO, l tablet 13:19: Daily, # [place] 00 30 tab, 0 Refill(s), Pharmacy: [facility] #[id number] prasugrel 5 Yes 5 mg = 1 Me moria mg oral 3-15 tab, PO, l tablet 13:19: Daily, # [place] 00 30 tab, 0 Refill(s), Pharmacy: [facility] #[id number] Aspirin 325 No Notes: Rafael cristina MG Oral 2-27 Take with l Tablet 15:00: food. Spironolact No Notes: Rafael cristina one 2-27 (Same As: l 15:00: Aldactone) [place] Effient No 60kg, Memoria 2-27 without l 15:00: history of [place] 00 TIA/Ischem ic stroke and without likely bypass surgery Aspirin 325 No Notes: Rafael cristina MG Oral 2-27 Take with l Tablet 15:00: food. Spironolact No Notes: Rafael cristina one 2-27 (Same As: l 15:00: Aldactone) [place] 00 Effient No 60kg, Memoria 2-27 without l 15:00: history of [place] 00 TIA/Ischem ic stroke and without likely bypass surgery Effient No 60kg, Memoria 2-27 without l 13:29: history of [place] 00 TIA/Ischem ic stroke and without likely bypass surgery Effient No 60kg, Memoria 2-27 without l 13:29: history of [place] 00 TIA/Ischem ic stroke and without likely bypass surgery Thyroxine No Notes: Memori a 2-27 Take 1 l 12:30: hour [place] 00 before or 2 hours after meal; Enteral feeds may interefere with the absorption of this medication . (Same as:Levothr oid) Thyroxine No Notes: Memori a 2-27 Take 1 l 12:30: hour [place] 00 before or 2 hours after meal; Enteral feeds may interefere with the absorption of this medication . (Same as:Levothr oid) Promethazin No 6.25 mg, Me moria e 2-27 0.25 mL, l 03:08: Route: IVPB, Drug form: INJ, Q6H, Dosing Weight 102.273, kg, PRN Nausea & Vomiting, Start date: 04/04/18 21:08:00 OIL AND GAS SPECIALIST, Duration: 30 day, Stop date: 05/04/18 21:07:00 CDT Promethazin No 6.25 mg, Me moria e 2-27 0.25 mL, l 03:08: Route: [place] 00 IVPB, Drug form: INJ, Q6H, Dosing Weight 102.273, kg, PRN Nausea & Vomiting, Start date: 04/04/18 21:08:00 OIL AND GAS SPECIALIST, Duration: 30 day, Stop date: 05/04/18 21:07:00 CDT Saline No Notes: Memoria Flush 0.9% 2-27 Same as: l 03:00: BD Posiflush Sterile Saline No Notes: Memoria Flush 0.9% 2-27 Same as: l 03:00: BD Posiflush Sterile sennosides, No Notes: Rafael cristina [facility] 2-27 (Same as: l 03:00: Senokot) Docusate No Notes: Memoria 2-27 (Same as: l 03:00: Colace) [place] 00 (Do Not Crush) sennosides, No Notes: Rafael cristina [facility] 2-27 (Same as: l 03:00: Senokot) [place] 00 Docusate No Notes: Memoria 2-27 (Same as: l 03:00: Colace) [place] (Do Not Crush) Phenergan No Notes: Memori a 2-27 (Same as: l 02:33: Phenergan) Phenergan No Notes: Memori a 2-27 (Same as: l 02:33: Phenergan) Labetalol No 10 mg, 2 Rafael cristina 2-26 mL, Route: l 23:39: IVP, Drug form: INJ, Q15Min, Dosing Weight 102.273, kg, PRN Hypertensi on, Start date: 04/04/18 17:39:00 OIL AND GAS SPECIALIST, Duration: 3 doses or times, Stop date: Limited # of times Hydralazine No Notes: Rafael cristina 2-26 (Same as: l 23:39: Apresoline ) Push over 5 minutes Labetalol No 10 mg, 2 Rafael cristina 2-26 mL, Route: l 23:39: IVP, Drug form: INJ, Q15Min, Dosing Weight 102.273, kg, PRN Hypertensi on, Start date: 04/04/18 17:39:00 OIL AND GAS SPECIALIST, Duration: 3 doses or times, Stop date: Limited # of times Hydralazine No Notes: Rafael cristina 2-26 (Same as: l 23:39: Apresoline ) Push over 5 minutes sugammadex No Notes: Memor ia 2-26 (Same as: l 19:36: [place]) sugammadex No Notes: Memor ia 2-26 (Same as: l 19:36: [place]) Ondansetron Yes 4 mg = 1 Me moria 4 MG Oral 2-26 tab, PO, l Tablet 19:09: Q8H, PRN [place] [Zofran] 00 Nausea/vom iting, # 20 tab, 0 Refill(s) Acetaminoph Yes 1 tab, PO, Memoria en 300 MG / 2-26 Q6H, PRN l Codeine 19:09: Pain, X 5 Citlali nn Phosphate 00 day, # 30 30 MG Oral tab, 0 Tablet Refill(s) [Tylenol with Codeine #3] Docusate Yes 100 mg = 1 Mem oria Sodium 100 2-26 cap, PO, l MG Oral 19:09: BID, # 28 Citlali nn Capsule 00 cap, 0 [Colace] Refill(s) Ondansetron Yes 4 mg = 1 Me moria 4 MG Oral 2-26 tab, PO, l Tablet 19:09: Q8H, PRN [place] [Zofran] 00 Nausea/vom iting, # 20 tab, 0 Refill(s) Acetaminoph Yes 1 tab, PO, Memoria en 300 MG / 2-26 Q6H, PRN l Codeine 19:09: Pain, X 5 Citlali nn Phosphate 00 day, # 30 30 MG Oral tab, 0 Tablet Refill(s) [Tylenol with Codeine #3] Docusate 2019 Yes 100 mg = 1 Mem oria Sodium 100 2-26 cap, PO, l MG Oral 19:09: BID, # 28 Citlali nn Capsule 00 cap, 0 [Colace] Refill(s) Zofran No Notes: Memoria 2-26 (Same as: l 18:39: Zofran) [place] MEDICATION WASTE Product Size: 4 mg Product Wasted: ___ mg Zofran No Notes: Memoria 2-26 (Same as: l 18:39: Zofran) [place] MEDICATION WASTE Product Size: 4 mg Product Wasted: ___ mg Phenergan No 6.25 mg, Rafael cristina 04-04 Route: l 16:36: IVPB, [place] 00 ONCE, Dosing Weight 102.273, kg, PRN as needed for nausea/vom iting, Start date: 04/04/18 10:36:00 OIL AND GAS SPECIALIST Phenergan No 6.25 mg, Rafael cristina 04-04 Route: l 16:36: IVPB, [place] 00 ONCE, Dosing Weight 102.273, kg, PRN as needed for nausea/vom iting, Start date: 04/04/18 10:36:00 OIL AND GAS SPECIALIST Phenergan No Notes: Memori a 2-26 (Same as: l 16:11: Phenergan) [place] 00 Phenergan No Notes: Memori a 2-26 (Same as: l 16:11: Phenergan) [place] Saline No Notes: Memoria Flush 0.9% 04-04 Same as: l 15:57: BD Posiflush Sterile Morphine No Notes: Memoria 2-26 (Same l 15:57: as:MORPhin e Sulfate) Sodium No 1,000 mL, Memori a Chloride 04-04 Rate: 75 l 0.9% IV 15:57: ml/hr, [place] 1,000 mL 00 Infuse over: 13.3 hr, Route: IV, Dosing Weight 102.273 kg, Total Volume: 1,000, Start date: 04/04/18 9:57:00 OIL AND GAS SPECIALIST, Duration: 30 day, Stop date: 05/04/18 9:56:00 CDT, 2.28, m2 Ondansetron No Notes: Rafael cristina 2-26 (Same as: l 15:57: Zofran) [place] 00 MEDICATION WASTE Product Size: 4 mg Product Wasted: ___ mg Acetaminoph No Notes: Rafael cristina en 325 MG / 2-26 (Same as: l Hydrocodone 15:57: [place] Citlali nn Bitartrate 00 325/5) Do 5 MG Oral not exceed Tablet 4gm/day of acetaminop hen. Acetaminoph No Notes: Do M emoria en 2-26 not exceed l 15:57: 4 gm/day. [place] 00 (Same as: Tylenol) Saline No Notes: Memoria Flush 0.9% 2-26 Same as: l 15:57: BD [place] 00 Posiflush Sterile Morphine No Notes: Memoria 2-26 (Same l 15:57: as:MORPhin [place] 00 e Sulfate) Sodium No 1,000 mL, Memori a Chloride 2-26 Rate: 75 l 0.9% IV 15:57: ml/hr, [place] 1,000 mL 00 Infuse over: 13.3 hr, Route: IV, Dosing Weight 102.273 kg, Total Volume: 1,000, Start date: 04/04/18 9:57:00 OIL AND GAS SPECIALIST, Duration: 30 day, Stop date: 05/04/18 9:56:00 CDT, 2.28, m2 Ondansetron No Notes: Rafael cristina 2-26 (Same as: l 15:57: Zofran) [place] 00 MEDICATION WASTE Product Size: 4 mg Product Wasted: ___ mg Acetaminoph No Notes: Rafael cristina en 325 MG / 2-26 (Same as: l Hydrocodone 15:57: [place] Citlali nn Bitartrate 00 325/5) Do 5 MG Oral not exceed Tablet 4gm/day of acetaminop hen. Acetaminoph No Notes: Do M emoria en 2-26 not exceed l 15:57: 4 gm/day. (Same as: Tylenol) Nicardipine No Notes: Rafael cristina 04-04 Same as: l 15:47: Cardene Concentrat ion: (0.1 mg/ 1 ml) Nicardipine No Notes: Rafael cristina 04-04 Same as: l 15:47: Cardene Concentrat ion: (0.1 mg/ 1 ml) ondansetron No Route: IV, Memoria (ANES) 04-04 Drug form: l 15:22: INJ, ONCE, Stop date: 04/04/18 9:22:00 OIL AND GAS SPECIALIST sugammadex No Route: IV, M emoria (ANES) 04-04 Drug form: l 15:22: SOLN, ONCE, Stop date: 04/04/18 9:22:00 OIL AND GAS SPECIALIST ondansetron No Route: IV, Memoria (ANES) 04-04 Drug form: l 15:22: INJ, ONCE, Stop date: 04/04/18 9:22:00 OIL AND GAS SPECIALIST sugammadex No Route: IV, M emoria (ANES) 04-04 Drug form: l 15:22: SOLN, ONCE, Stop date: 04/04/18 9:22:00 OIL AND GAS SPECIALIST Ondansetron No 4 mg, Memor ia 04-04 Route: l 14:49: IVP, ONCE, Dosing Weight 102.273, kg, PRN Nausea & Vomiting, Start date: 04/04/18 8:49:00 OIL AND GAS SPECIALIST Oxycodone No Notes: Memori a 04-04 (Same as: l 14:49: Roxicodone ) Acetaminoph No Notes: Max Memoria en 04-04 acetaminop l 14:49: hen 4000 mg/day (4 gm/day). (Same as: Tylenol Extra Strength) Metoprolol No Notes: Memor ia 04-04 (Same as: l 14:49: Lopressor) Push over 2 minutes Hydromorpho No Notes: Rafael cristina ne 2-26 Same as l 14:49: Dilaudid Naloxone No Notes: Memoria 2-26 Same as l 14:49: Narcan Hydralazine No Notes: Rafael cristina 2-26 (Same as: l 14:49: Apresoline ) Push over 5 minutes Flumazenil No Notes: Memor ia 2-26 (Same as: l 14:49: Romazicon) Ondansetron No 4 mg, Memor ia 2-26 Route: l 14:49: IVP, ONCE, Dosing Weight 102.273, kg, PRN Nausea & Vomiting, Start date: 04/04/18 8:49:00 OIL AND GAS SPECIALIST Oxycodone No Notes: Memori a 2-26 (Same as: l 14:49: Roxicodone ) Acetaminoph No Notes: Max Memoria en 2- acetaminop l 14:49: hen 4000 mg/day (4 gm/day). (Same as: Tylenol Extra Strength) Metoprolol No Notes: Memor ia 2-26 (Same as: l 14:49: Lopressor) Push over 2 minutes Hydromorpho No Notes: Rafael cristina ne 2- Same as l 14:49: Dilaudid Naloxone No Notes: Memoria 2-26 Same as l 14:49: Narcan Hydralazine No Notes: Rafael cristina 2-26 (Same as: l 14:49: Apresoline ) Push over 5 minutes Flumazenil No Notes: Memor ia 2-26 (Same as: l 14:49: Romazicon) heparin No Route: IV, Rafael cristina (ANES) 2-26 Drug form: l 14:48: INJ, ONCE, Stop date: 04/04/18 8:48:00 OIL AND GAS SPECIALIST heparin No Route: IV, Rafael cristina (ANES) 2-26 Drug form: l 14:48: INJ, ONCE, Stop date: 04/04/18 8:48:00 OIL AND GAS SPECIALIST protamine 2019-0 No Route: IV, Me moria (ANES) 10 04-04 Drug form: l mg 14:40: INJ, Start date: 04/04/18 8:40:00 OIL AND GAS SPECIALIST, Stop date: 04/04/18 9:40:00 OIL AND GAS SPECIALIST protamine 2019-0 No Route: IV, Me moria (ANES) 10 04-04 Drug form: l mg 14:40: INJ, Start date: 04/04/18 8:40:00 OIL AND GAS SPECIALIST, Stop date: 04/04/18 9:40:00 OIL AND GAS SPECIALIST lidocaine 2019-0 No Route: IV, Me moria (ANES) 04-04 Drug form: l 14:33: INJ, ONCE, Stop date: 04/04/18 8:33:00 OIL AND GAS SPECIALIST midazolam 2019-0 No Route: IV, Me moria (ANES) 04-04 Drug form: l 14:33: SOLN, ONCE, Stop date: 04/04/18 8:33:00 OIL AND GAS SPECIALIST fentaNYL 2019-0 No Route: IV, Mem oria (ANES) 04-04 Drug form: l 14:33: INJ, ONCE, Stop date: 04/04/18 8:33:00 OIL AND GAS SPECIALIST propofol 2019-0 No Route: IV, Mem oria (ANES) 04-04 Drug form: l 14:33: INJ, ONCE, Stop date: 04/04/18 8:33:00 OIL AND GAS SPECIALIST dexamethaso 2018-0 No Route: IV, Memoria ne (ANES) 04-04 Drug form: l 14:33: INJ, ONCE, Stop date: 04/04/18 8:33:00 OIL AND GAS SPECIALIST lidocaine 2019-0 No Route: IV, Me moria (ANES) 04-04 Drug form: l 14:33: INJ, ONCE, Stop date: 04/04/18 8:33:00 OIL AND GAS SPECIALIST midazolam 2019-0 No Route: IV, Me moria (ANES) 2- Drug form: l 14:33: SOLN, ONCE, Stop date: 04/04/18 8:33:00 OIL AND GAS SPECIALIST fentaNYL 2019-0 No Route: IV, Mem oria (ANES) 04-04 Drug form: l 14:33: INJ, ONCE, Stop date: 04/04/18 8:33:00 OIL AND GAS SPECIALIST propofol 2019-0 No Route: IV, Mem oria (ANES) 04-04 Drug form: l 14:33: INJ, ONCE, Stop date: 04/04/18 8:33:00 OIL AND GAS SPECIALIST dexamethaso 2018-0 No Route: IV, Memoria ne (ANES) 04-04 Drug form: l 14:33: INJ, ONCE, Stop date: 04/04/18 8:33:00 OIL AND GAS SPECIALIST ceFAZolin 2018-0 No Route: IV, Me moria (ANES) 04-04 Drug form: l 14:28: INJ, ONCE, Stop date: 04/04/18 8:28:00 OIL AND GAS SPECIALIST phenylephri 2018-0 No Route: IV, Memoria ne (ANES) 04-04 Drug form: l 14:28: INJ, ONCE, Stop date: 04/04/18 8:28:00 OIL AND GAS SPECIALIST ceFAZolin 2018-0 No Route: IV, Me moria (ANES) 04-04 Drug form: l 14:28: INJ, ONCE, Stop date: 04/04/18 8:28:00 OIL AND GAS SPECIALIST phenylephri 2018-0 No Route: IV, Memoria ne (ANES) 04-04 Drug form: l 14:28: INJ, ONCE, Stop date: 04/04/18 8:28:00 OIL AND GAS SPECIALIST Nitroglycer 2018-0 No Nitroglyce Memoria in 04-04 rin, 200 l 14:25: microgram, Route: INTRAARTER IAL, ONCE, 04/04/18 8:25:00 OIL AND GAS SPECIALIST, Stop date: 04/04/18 8:25:00 OIL AND GAS SPECIALIST Nitroglycer 2018-0 No Nitroglyce Memoria in 04-04 rin, 200 l 14:25: microgram, [place] 00 Route: INTRAARTER IAL, ONCE, 04/04/18 8:25:00 OIL AND GAS SPECIALIST, Stop date: 04/04/18 8:25:00 OIL AND GAS SPECIALIST Omnipaque 2018-0 No 150 ml, Memor ia 350 04-04 Route: l 14:24: INTRAARTER 00 IAL, Dosing Weight 102.273, kg, ONCE, Start date: 04/04/18 8:24:00 OIL AND GAS SPECIALIST, Stop date: 04/04/18 8:24:00 OIL AND GAS SPECIALIST Omnipaque 2019-0 No 150 ml, Memor ia 350 04-04 Route: l 14:24: INTRAARTER [place] 00 IAL, Dosing Weight 102.273, kg, ONCE, Start date: 04/04/18 8:24:00 OIL AND GAS SPECIALIST, Stop date: 04/04/18 8:24:00 OIL AND GAS SPECIALIST rocuronium 2018-0 No Route: IV, M emoria (ANES) 2-26 Drug form: l 14:23: INJ, ONCE, [place] 00 Stop date: 04/04/18 8:23:00 OIL AND GAS SPECIALIST rocuronium 2018-0 No Route: IV, M emoria (ANES) 2-26 Drug form: l 14:23: INJ, ONCE, Stop date: 04/04/18 8:23:00 OIL AND GAS SPECIALIST Lactated 2018-0 No Route: IV, Mem oria Ringers 2-26 Total l Injection 13:22: Volume: Citlali nn IV (ANES) 00 1,000, 1000 mL Start date: 04/04/18 7:22:00 OIL AND GAS SPECIALIST, Stop date: 04/04/18 8:22:00 OIL AND GAS SPECIALIST Lactated 2019-0 No Route: IV, Mem oria Ringers 2-26 Total l Injection 13:22: Volume: Citlali nn IV (ANES) 00 1,000, 1000 mL Start date: 04/04/18 7:22:00 OIL AND GAS SPECIALIST, Stop date: 04/04/18 8:22:00 OIL AND GAS SPECIALIST Acetaminoph 0 No Notes: Max Memoria en 2-26 acetaminop l 12:36: hen 4000 [place] 00 mg/day (4 gm/day). (Same as: Tylenol Extra Strength) Acetaminoph No Notes: Max Memoria en 2-26 acetaminop l 12:36: hen 4000 [place] 00 mg/day (4 gm/day). (Same as: Tylenol Extra Strength) ceFAZolin + No Notes: Rafael cristina sterile 2-26 (Same As: l water 20 mL 05:00: Ancef, Herm mey 00 Kefzol) MEDICATION WASTE Product Size: 1000 mg Product Wasted: ___ mg ceFAZolin + No Notes: Rafael cristina sterile 2-26 (Same As: l water 20 mL 05:00: Ancef, Herm mey 00 Kefzol) MEDICATION WASTE Product Size: 1000 mg Product Wasted: ___ mg ceFAZolin + 2018- No Notes: Rafael cristina sterile 2-19 (Same As: l water 20 mL 05:00: Ancef, Herm mey 00 Kefzol) MEDICATION WASTE Product Size: 1000 mg Product Wasted: ___ mg ceFAZolin + 2018- No Notes: Rafael cristina sterile 2-19 (Same As: l water 20 mL 05:00: Ancef, Herm mey 00 Kefzol) MEDICATION WASTE Product Size: 1000 mg Product Wasted: ___ mg clopidogrel 2019- No 75 mg = 1 M emoria 75 MG Oral 2-05 tab, PO, l Tablet 22:37: Daily, # [place] [Plavix] 00 30 tab, 5 Refill(s), Pharmacy: [facility] #[id number] Aspirin 325 2018-0 No 325 mg = 1 Memoria MG Oral 2-05 tab, PO, l Tablet 22:37: Daily, # [place] 00 30 tab, 11 Refill(s), Pharmacy: [facility] #[id number] clopidogrel 2018-0 No 75 mg = 1 M emoria 75 MG Oral 2-05 tab, PO, l Tablet 22:37: Daily, # [place] [Plavix] 00 30 tab, 5 Refill(s), Pharmacy: [facility] #[id number] Aspirin 325 2018-0 No 325 mg = 1 Memoria MG Oral 2-05 tab, PO, l Tablet 22:37: Daily, # Forrest 00 30 tab, 11 Refill(s), Pharmacy: [facility] #[id number] tizanidine 2018-0 No See Memoria 2 mg oral 2-04 Instructio l tablet 23:19: ns, # 60 Trinidad 08 tab, Refill(s) 2, TAKE 1 TABLET BY MOUTH AT BEDTIME FOR 2 DAYS AND THEN 2 TABLETS AT BEDTIME THEREAFTER , Pharmacy: [facility] #[id number] tizanidine 2018-0 No See Memoria 2 mg oral 2-04 Instructio l tablet 23:19: ns, # 60 Forrest 08 tab, Refill(s) 2, TAKE 1 TABLET BY MOUTH AT BEDTIME FOR 2 DAYS AND THEN 2 TABLETS AT BEDTIME THEREAFTER , Pharmacy: [facility] #[id number] magnesium 2019-0 No 500 mg = 1 Me moria oxide 500 1-31 tab, PO, l mg oral 21:16: Daily, X Geo n tablet 00 30 day, # 30 tab, 2 Refill(s), [id number] rizatriptan 2019-0 No 5 mg = 1 Me moria 5 MG Oral 1-31 tab, PO, l Tablet 21:16: Daily, PRN Citlali nn [Maxalt] 00 for migraine headache, X 12 day, # 12 tab, 0 Refill(s), [id number] magnesium 2019-0 No 500 mg = 1 Me moria oxide 500 1-31 tab, PO, l mg oral 21:16: Daily, X Geo n tablet 00 30 day, # 30 tab, 2 Refill(s), [id number] rizatriptan 2019-0 No 5 mg = 1 Me moria 5 MG Oral 1-31 tab, PO, l Tablet 21:16: Daily, PRN Citlali nn [Maxalt] 00 for migraine headache, X 12 day, # 12 tab, 0 Refill(s), Pharmacy: [facility] #[id number] { No See Memoria (Methylpred 1-31 Instructio l nisolone 4 21:12: ns, PO, Herm mey MG Oral 49 Take by Tablet mouth as [Medrol]) } directed Pack on label., [Medrol # 1 Pack, Dosepak] 0 Refill(s), [id number] { No See Memoria (Methylpred 1-31 Instructio l nisolone 4 21:12: ns, PO, Herm mey MG Oral 49 Take by Tablet mouth as [Medrol]) } directed Pack on label., [Medrol # 1 Pack, Dosepak] 0 Refill(s), Pharmacy: [facility] #[id number] Phenergan 2019-0 No 25 mg = 1 Mem oria 25 mg oral 1-31 tab, PO, l tablet 21:12: Q6H, PRN [place] 47 Headache 6-10, # 15 tab, 0 Refill(s), [id number] Phenergan 2019-0 No 25 mg = 1 Mem oria 25 mg oral 1-31 tab, PO, l tablet 21:12: Q6H, PRN Trinidad 47 Headache 6-10, # 15 tab, 0 Refill(s), [id number] { No See Memoria (Methylpred 1-31 Instructio l nisolone 4 21:02: ns, PO, Herm mey MG Oral 00 Take by Tablet mouth as [Medrol]) } directed Pack on label., [Medrol # 1 Pack, Dosepak] 0 Refill(s), Pharmacy: [facility] #[id number] Phenergan 2018- No 25 mg = 1 Mem oria 25 mg oral 1-31 tab, PO, l tablet 21:02: Q6H, PRN Forrest 00 Headache 6-10, # 15 tab, 0 Refill(s), [facility] [id number] { No See Memoria (Methylpred 1-31 Instructio l nisolone 4 21:02: ns, PO, Herm mey MG Oral 00 Take by Tablet mouth as [Medrol]) } directed Pack on label., [Medrol # 1 Pack, Dosepak] 0 Refill(s), [id number] Phenergan 2018-0 No 25 mg = 1 Mem oria 25 mg oral 1-31 tab, PO, l tablet 21:02: Q6H, PRN [place] 00 Headache 6-10, # 15 tab, 0 Refill(s), [id number] spironolact 2019-0 No 25 mg = 1 M emoria one 25 mg 1-31 tab, PO, l oral tablet 16:37: Daily, # He rmann 47 60 tab, 2 Refill(s), Pharmacy: [facility][id number] spironolact 2019-0 No 25 mg = 1 M emoria one 25 mg 1-31 tab, PO, l oral tablet 16:37: Daily, # He rmann 47 60 tab, 2 Refill(s), Pharmacy: [id number] topiramate 2018-0 No 50 mg = 1 Me moria 50 mg oral 1-31 tab, PO, l tablet 16:31: BID, # 60 Geo n 26 tab, 1 Refill(s), Pharmacy: [facility] #[id number] topiramate 0 No 50 mg = 1 Me moria 50 mg oral 1-31 tab, PO, l tablet 16:31: BID, # 60 Geo n 26 tab, 1 Refill(s), Pharmacy: [facility] #[id number] spironolact 0 No 25 mg = 1 M emoria one 25 mg -31 tab, PO, l oral tablet 16:30: Daily, # He rmann 00 60 tab, 2 Refill(s), Pharmacy: [facility] #[id number] spironolact No 25 mg = 1 M emoria one 25 mg -31 tab, PO, l oral tablet 16:30: Daily, # He rmann 00 60 tab, 2 Refill(s), Pharmacy: [facility] #[id number] Magnesium No Notes: Memori a Sulfate 03-09 WASTE: F/P l 16:07: - Sink; E [place] 00 - Municipal Trash Bin Ketorolac 0 No 4 days. Rafael cristina 03-09 l 16:07: [place] 00 Magnesium 0 No Notes: Memori a Sulfate 03-09 WASTE: F/P l 16:07: - Sink; E [place] 00 - Municipal Trash Bin Ketorolac 0 No 4 days. Rafael cristina 03-09 l 16:07: [place] 00 Solu-Medrol 0 No Notes: Rafael cristina 03-09 (Same l 16:06: as:Solu-ME [place] 00 DROL, A-Methapre d) MEDICATION WASTE Product Size: 1000 mg Product Wasted: ___ mg Solu-Medrol No Notes: Rafael cristina 03-09 (Same l 16:06: as:Solu-ME [place] 00 DROL, A-Methapre d) MEDICATION WASTE Product Size: 1000 mg Product Wasted: ___ mg Phenergan No Notes: Do Mem oria 03-09 not give l 16:05: IV push. [place] 00 (Same as: Phenergan) Phenergan 0 No Notes: Do Mem oria 03-09 not give l 16:05: IV push. [place] 00 (Same as: Phenergan) Nortriptyli No Notes: Rafael cristina ne 03-09 (Same l 03:00: as:Pamelor [place] 00 , Aventyl) Zanaflex No Notes: Memoria 03-09 (Same As: l 03:00: Zanaflex) [place] 00 Nortriptyli No Notes: Rafael cristina ne 03-09 (Same l 03:00: as:Pamelor [place] 00 , Aventyl) Zanaflex No Notes: Memoria 03-09 (Same As: l 03:00: Zanaflex) [place] 00 Magnesium No Notes: Memori a Sulfate 1-30 WASTE: F/P l 21:11: - Sink; E [place] - Municipal Trash Bin Magnesium No Notes: Memori a Sulfate -30 WASTE: F/P l 21:11: - Sink; E [place] 00 - Municipal Trash Bin ketOROLAC No 4 days. Rafael cristina 15 mg/mL 1-30 l injectable 21:09: [place] solution 00 ketOROLAC No 4 days. Rafael cristina 15 mg/mL 1-30 l injectable 21:09: [place] solution 00 Solu-Medrol No Notes: Rafael cristina 1-30 (Same l 21:08: as:Solu-ME [place] 00 DROL, A-Methapre d) Solu-Medrol No Notes: Rafael cristina 1-30 (Same l 21:08: as:Solu-ME [place] 00 DROL, A-Methapre d) Phenergan No Notes: Do Mem oria 1-30 not give l 21:07: IV push. [place] 00 (Same as: Phenergan) Phenergan No Notes: Do Mem oria 1-30 not give l 21:07: IV push. [place] 00 (Same as: Phenergan) Spironolact No Notes: Rafael cristina one -30 (Same As: l 18:00: Aldactone) [place] 00 Aldactone No Notes: Memori a 1-30 (Same As: l 18:00: Aldactone) [place] Spironolact No Notes: Rafael cristina one 1-30 (Same As: l 18:00: Aldactone) [place] 00 Aldactone No Notes: Memori a 1-30 (Same As: l 18:00: Aldactone) tizanidine No 4 mg = 2 Mem oria 2 mg oral 1-30 tab, PO, l tablet 17:56: Bedtime, 0 Citlali nn 00 Refill(s) tizanidine No 4 mg = 2 Mem oria 2 mg oral 1-30 tab, PO, l tablet 17:56: Bedtime, 0 Citlali nn 00 Refill(s) Thyroxine No Notes: Memori a 1-30 Take 1 l 16:41: hour [place] 00 before or 2 hours after meal; Enteral feeds may interefere with the absorption of this medication . (Same as:Levothr oid) Thyroxine No Notes: Memori a 1-30 Take 1 l 16:41: hour [place] 00 before or 2 hours after meal; Enteral feeds may interefere with the absorption of this medication . (Same as:Levothr oid) topiramate No Notes: Memor ia 1-30 (Same As: l 16:38: Topamax) [place] "Do Not Crush" topiramate No Notes: Memor ia 1-30 (Same As: l 16:38: Topamax) [place] "Do Not Crush" Miralax No Notes: Memoria 1-30 Dissolve l 16:12: in 8 oz of [place] 00 water or juice. (Same as: Miralax) Miralax No Notes: Memoria 1-30 Dissolve l 16:12: in 8 oz of [place] 00 water or juice. (Same as: Miralax) docusate No Notes: Memoria sodium 1-30 (Same as: l 15:00: Colace) (Do Not Crush) sennosides, No Notes: Rafael cristina [facility] 1-30 (Same as: l 15:00: Senokot) Saline No Notes: Memoria Flush 0.9% 1-30 Same as: l 15:00: BD [place] 00 Posiflush Sterile docusate No Notes: Memoria sodium 1-30 (Same as: l 15:00: Colace) [place] 00 (Do Not Crush) sennosides, No Notes: Rafael cristina [facility] -30 (Same as: l 15:00: Senokot) [place] 00 Saline No Notes: Memoria Flush 0.9% 1-30 Same as: l 15:00: BD [place] 00 Posiflush Sterile ketOROLAC 0 No 4 days Memor ia 30 mg/mL 30 l injectable 10:54: MEDICATION H ermann solution WASTE Product Size: 30 mg Product Wasted: ___ mg ketOROLAC 0 No 4 days Memor ia 30 mg/mL 30 l injectable 10:54: MEDICATION H ermann solution WASTE Product Size: 30 mg Product Wasted: ___ mg chlorhexidi No Notes: Rafael cristina ne 30 (Same As: l gluconate 06:00: Peridex) Herm mey 1.2 MG/ML 00 Mouthwash chlorhexidi No Notes: Rafael cristina ne 30 (Same As: l gluconate 06:00: Peridex) Herm mey 1.2 MG/ML 00 Mouthwash Depakote No 500 mg, Memori a 30 Route: IV, l 04:16: ONCE, Dosing Weight 104.545, kg, Priority: NOW, Start date: 03/07/18 22:16:00 [employer]IST, Stop date: 03/07/18 22:16:00 [employer]IL AND G[employer] SPECIALIST Depakote No 500 mg, Memori a 30 Route: IV, l 04:16: ONCE, Dosing Weight 104.545, kg, Priority: NOW, Start date: 03/07/18 22:16:00 OIL AND GAS SPECIALIST, Stop date: 03/07/18 22:16:00 OIL AND GAS SPECIALIST ketOROLAC 0 No 4 days Memor ia 30 mg/mL 30 l injectable 04:14: MEDICATION H ermann solution 00 WASTE Product Size: 30 mg Product Wasted: ___ mg Benadryl 2019- No Notes: Memoria 1-30 (Same as: l 04:14: Benadryl) [place] Ondansetron 2018- No Notes: Rafael cristina 1-30 (Same as: l 04:14: Zofran) [place] 00 MEDICATION WASTE Product Size: 4 mg Product Wasted: ___ mg ketOROLAC 2019- No 4 days Memor ia 30 mg/mL 03-08 l injectable 04:14: MEDICATION H ermann solution 00 WASTE Product Size: 30 mg Product Wasted: ___ mg Benadryl 2018- No Notes: Memoria -30 (Same as: l 04:14: Benadryl) [place] Ondansetron No Notes: Rafael cristina -30 (Same as: l 04:14: Zofran) [place] 00 MEDICATION WASTE Product Size: 4 mg Product Wasted: ___ mg Ondansetron 2018-0 No Notes: Rafael cristina -30 (Same as: l 04:13: Zofrmadan) [place] 00 MEDICATION WASTE Product Size: 4 mg Product Wasted: ___ mg Saline 2018- No Notes: Memoria Flush 0.9% 1-30 Same as: l 04:13: BD [place] Posiflush Sterile Insulin 2018-0 No 60 Memoria regular 1-30 units) l 04:13: WASTE: F/P [place] 00 - Black; E - Municipal Trash Bin Stable for 28 days at room temperatur e Expires in days from ____Date Ondansetron 2019-0 No Notes: Rafael cristina 1-30 (Same as: l 04:13: Zofrmadan) [place] 00 MEDICATION WASTE Product Size: 4 mg Product Wasted: ___ mg Saline 2018-0 No Notes: Memoria Flush 0.9% 1-30 Same as: l 04:13: BD [place] Posiflush Sterile Insulin 2018-0 No 60 Memoria regular 1-30 units) l 04:13: WASTE: F/P [place] 00 - Black; E - Municipal Trash Bin Stable for 28 days at room temperatur e Expires in days from ____Date Valproic No Notes: Memoria Acid 250 MG - (Same As: l Oral 23:51: Depakene) [place] Capsule 00 (Do Not Crush) Valproic No Notes: Memoria Acid 250 MG -29 (Same As: l Oral 23:51: Depakene) [place] Capsule 00 (Do Not Crush) Calcium No 1,000 mL, Memor ia Chloride - 1,000 l 0.0014 21:48: ml/hr, [place] MEQ/ML / 00 Infuse Potassium Over: 1 Chloride hr, Route: 0.004 IV, 1,000, MEQ/ML / Drug form: Sodium INJ, ONCE, Chloride Priority: 0.103 STAT, MEQ/ML / Dosing Sodium Weight Lactate 104.545 0.028 kg, Start MEQ/ML date: Injectable 03/07/18 Solution 15:48:00 [employer]IL [employer] G[employer] SPECIALIST, Stop date: 03/07/18 15:48:00 [employer]IL AND G[employer]IST Ketorolac No 4 days. Rafael cristina 03-07 (Same l 21:48: as:Toradol ) MEDICATION WASTE Product Size: 30 mg Product Wasted: ___ mg Compazine No Notes: Memori a 03-07 (Same as: l 21:48: Compazine) Dexamethaso No Notes: Memoria ne 03-07 MEDICATION l 21:48: WASTE Product Size: 10 mg Product Wasted: ___ mg Diphenhydra No Notes: Rafael cristina mine 03-07 (Same as: l 21:48: Benadryl) Calcium No 1,000 mL, Memor ia Chloride - 1,000 l 0.0014 21:48: ml/hr, Forrest MEQ/ML / 00 Infuse Potassium Over: 1 Chloride hr, Route: 0.004 IV, 1,000, MEQ/ML / Drug form: Sodium INJ, ONCE, Chloride Priority: 0.103 STAT, MEQ/ML / Dosing Sodium Weight Lactate 104.545 0.028 kg, Start MEQ/ML date: Injectable 03/07/18 Solution 15:48:00 [employer]IL [employer] G[employer] SPECIALIST, Stop date: 03/07/18 15:48:00 OIL AND G[employer] SPECIALIST Ketorolac No 4 days. Rafael cristina 03-07 (Same l 21:48: as:Toradol ) MEDICATION WASTE Product Size: 30 mg Product Wasted: ___ mg Compazine No Notes: Memori a 03-07 (Same as: l 21:48: Compazine) Dexamethaso No Notes: Memoria ne 03-07 MEDICATION l 21:48: WASTE Product Size: 10 mg Product Wasted: ___ mg Diphenhydra No Notes: Rafael cristina mine 03-07 (Same as: l 21:48: Benadryl) Iohexol No 60 mL, Memoria 03-07 Route: l 21:26: IVP, Drug Form: SOLN, Dosing Weight 104.545, kg, ONCALL, STAT, Start date: 03/07/18 15:26:00 OIL AND GAS SPECIALIST, Duration: 1 doses or times, Dose = 2.2ml/kg, Max dose = 100ml -- "To be infused by Radiology Staff ONLY" Iohexol No 60 mL, Memoria 03-07 Route: l 21:26: IVP, Drug Form: SOLN, Dosing Weight 104.545, kg, ONCALL, STAT, Start date: 03/07/18 15:26:00 OIL AND GAS SPECIALIST, Duration: 1 doses or times, Dose = 2.2ml/kg, Max dose = 100ml -- "To be infused by Radiology Staff ONLY" Saline No Notes: Memoria Flush 0.9% -29 preservati l 20:46: ve free. Saline No Notes: Memoria Flush 0.9% 1-29 preservati l 20:46: ve free. spironolact No See Memori a one 25 mg 03-07 Instructio l oral tablet 00:54: ns, 1 tab H ermann 00 daily for 3 days, then if no relief and no side effects increase to 2 tabs daily, # 60 tab, 2 Refill(s), Pharmacy: [facility] #[id number] spironolact No See Memori a one 25 mg 1-29 Instructio l oral tablet 00:54: ns, 1 tab H ermann 00 daily for 3 days, then if no relief and no side effects increase to 2 tabs daily, # 60 tab, 2 Refill(s), Pharmacy: [facility] #[id number] Ketorolac No 4 days Memor ia 03-05 l 23:37: MEDICATION [place] WASTE Product Size: 30 mg Product Wasted: 15 mg Ketorolac No 4 days Memor ia 03-05 l 23:37: MEDICATION [place] WASTE Product Size: 30 mg Product Wasted: 15 mg topiramate No 50 mg = 1 Me moria 50 mg oral 1-27 tab, PO, l tablet 21:55: BID, # 60 Geo n 00 tab, 1 Refill(s) topiramate No 50 mg = 1 Me moria 50 mg oral 1-27 tab, PO, l tablet 21:55: BID, # 60 Geo n 00 tab, 1 Refill(s) Phenergan No Notes: Do Mem oria - not give l 21:53: IV push. [place] 00 (Same as: Phenergan) Phenergan No Notes: Do Mem oria -27 not give l 21:53: IV push. [place] (Same as: Phenergan) Ativan No Notes: Memoria 1- (Same as: l 21:12: Ativan) [place] Ativan No Notes: Memoria 1-27 (Same as: l 21:12: Ativan) [place] Lidocaine No Notes: Memori a Hydrochlori -27 Preservati l de 10 MG/ML 20:40: ve free. He rmann Injectable 00 (Same as: Solution Xylocaine MPF) Lidocaine No Notes: Memori a Hydrochlori 1-27 Preservati l de 10 MG/ML 20:40: ve free. He rmann Injectable 00 (Same as: Solution Xylocaine MPF) NS (Bolus) 0 No 1,000 mL, Me moria IV - 1,000 l 20:01: ml/hr, [place] 00 Infuse Over: 1 hr, Route: IV, ONCE, Priority: STAT, Dosing Weight 104.545 kg, Start date: 03/05/18 14:01:00 [employer]IL [employer] G[employer] SPECIALIST, Stop date: 03/05/18 14:01:00 OIL AND GAS SPECIALIST ketOROLAC 0 No 30 mg, Memori a 30 mg/mL 03-05 Route: l injectable 20:01: IVP, Drug He rmann solution 00 form: INJ, ONCE, Dosing Weight 104.545, kg, Priority: STAT, Start date: 03/05/18 14:01:00 OIL AND GAS SPECIALIST, Stop date: 03/05/18 14:01:00 OIL AND GAS SPECIALIST NS (Bolus) 0 No 1,000 mL, Me moria IV 03-05 1,000 l 20:01: ml/hr, [place] 00 Infuse Over: 1 hr, Route: IV, ONCE, Priority: STAT, Dosing Weight 104.545 kg, Start date: 03/05/18 14:01:00 OIL AND GAS SPECIALIST, Stop date: 03/05/18 14:01:00 OIL AND GAS SPECIALIST ketOROLAC No 30 mg, Memori a 30 mg/mL 03-05 Route: l injectable 20:01: IVP, Drug He rmann solution 00 form: INJ, ONCE, Dosing Weight 104.545, kg, Priority: STAT, Start date: 03/05/18 14:01:00 OIL AND GAS SPECIALIST, Stop date: 03/05/18 14:01:00 OIL AND GAS SPECIALIST Zofran ODT No Notes: Memor ia - (Same as: l 19:21: Zofran [place] 00 ODT) Zofran ODT No Notes: Memor ia - (Same as: l 19:21: Zofran [place] 00 ODT) Lidocaine 0 No 2 mL, Memoria Hydrochlori 03-01 Route: l de 10 MG/ML 00:44: SUB-Q, Herm mey Injectable 00 Dosing Solution Weight 104.545, kg, ONCE, (Preservat mukesh Free), Start date: 02/28/18 18:44:00 OIL AND GAS SPECIALIST, Stop date: 02/28/18 18:44:00 OIL AND GAS SPECIALIST Lidocaine 2019-0 No 2 mL, Memoria Hydrochlori 03-01 Route: l de 10 MG/ML 00:44: SUB-Q, Herm mey Injectable 00 Dosing Solution Weight 104.545, kg, ONCE, (Preservat mukesh Free), Start date: 02/28/18 18:44:00 OIL AND GAS SPECIALIST, Stop date: 02/28/18 18:44:00 OIL AND GAS SPECIALIST Aimovig 70 0 No 70 mg, Memor ia mg/mL -22 SUB-Q, l subcutaneou 20:24: qMonth, # H ermann s solution 00 1 inj, 3 Refill(s), Pharmacy: [facility] #[id number], Please let u know if a PA is required. gabapentin 2019-0 No See Memoria 100 MG Oral - Instructio l Capsule 20:24: ns, 2 cap Citlali nn 00 PO daily with Diclofenac as needed for headache, # 60 cap, 2 Refill(s), Pharmacy: [facility] #[id number] 1 ML 2019-0 Yes 70 mg, Memoria erenumab-ao -22 SUB-Q, l oe 70 MG/ML 20:24: qMonth, # H ermann Prefilled 00 1 inj, 3 Syringe Refill(s), [Aimovig] Pharmacy: [facility] #[id number], Please let u know if a PA is required. Aimovig 70 0 No 70 mg, Memor ia mg/mL -22 SUB-Q, l subcutaneou 20:24: qMonth, # H ermann s solution 00 1 inj, 3 Refill(s), Pharmacy: [facility] #[id number], Please let u know if a PA is required. gabapentin 2019-0 No See Memoria 100 MG Oral -22 Instructio l Capsule 20:24: ns, 2 cap Citlali nn 00 PO daily with Diclofenac as needed for headache, # 60 cap, 2 Refill(s), Pharmacy: [facility] #[id number] 1 ML 2019-0 Yes 70 mg, Memoria erenumab-ao -22 SUB-Q, l oe 70 MG/ML 20:24: qMonth, # H ermann Prefilled 00 1 inj, 3 Syringe Refill(s), [Aimovig] Pharmacy: [facility] #[id number], Please let u know if a PA is required. Valproic No Notes: Memoria Acid 100 1-22 Dilute in l MG/ML 03:58: at least [place] Injectable 00 50ml D5W Solution or NS. Infusion rate = 20 mg/min (Same As: Depacon) Magnesium No Notes: Memori a Sulfate 02-28 WASTE: F/P l 03:58: - Sink; E [place] - Municipal Trash Bin Valproic No Notes: Memoria Acid 100 1-22 Dilute in l MG/ML 03:58: at least [place] Injectable 00 50ml D5W Solution or NS. Infusion rate = 20 mg/min (Same As: Depacon) Magnesium No Notes: Memori a Sulfate 02-28 WASTE: F/P l 03:58: - Sink; E [place] - Municipal Trash Bin Ketorolac No 30 mg, Memori a 02-28 Route: l 01:02: IVP, Drug form: INJ, ONCE, Dosing Weight 104.545, kg, Priority: STAT, Start date: 02/27/18 19:02:00 [employer]IL AND G[employer] SPECIALIST, Stop date: 02/27/18 19:02:00 OIL AND GAS SPECIALIST Ketorolac No 30 mg, Memori a 02-28 Route: l 01:02: IVP, Drug form: INJ, ONCE, Dosing Weight 104.545, kg, Priority: STAT, Start date: 02/27/18 19:02:00 OIL AND GAS SPECIALIST, Stop date: 02/27/18 19:02:00 OIL AND GAS SPECIALIST NS (Bolus) 0 No 1,000 mL, Me moria IV 02-27 1,000 l 21:51: ml/hr, [place] 00 Infuse Over: 1 hr, Route: IV, 1,000, Drug form: INJ, ONCE, Priority: STAT, Dosing Weight 104.545 kg, Start date: 02/27/18 15:51:00 OIL AND GAS SPECIALIST, Stop date: 02/27/18 15:51:00 OIL AND GAS SPECIALIST Benadryl No Notes: Memoria -21 (Same as: l 21:51: Benadryl) [place] 00 Compazine No Notes: Memori a 1-21 (Same as: l 21:51: Compazine) NS (Bolus) No 1,000 mL, Me moria IV 02-27 1,000 l 21:51: ml/hr, Infuse Over: 1 hr, Route: IV, 1,000, Drug form: INJ, ONCE, Priority: STAT, Dosing Weight 104.545 kg, Start date: 02/27/18 15:51:00 OIL AND GAS SPECIALIST, Stop date: 02/27/18 15:51:00 OIL AND GAS SPECIALIST Benadryl No Notes: Memoria 02-27 (Same as: l 21:51: Benadryl) Compazine No Notes: Memori a - (Same as: l 21:51: Compazine) levothyroxi 2017-02 Yes TAKE 1 Meth garth ne 2-[address] (SYNTHROID, 00:00: MOUTH Hospi ta LEVOXYL) 00 EVERY l 137 mcg MORNING tablet levothyroxi 2017-02 Yes TAKE 1 Meth garth ne 2-[address] (SYNTHROID, 00:00: MOUTH Hospi ta LEVOXYL) 00 EVERY l 137 mcg MORNING tablet diclofenac 2017-02 No = 1 tab, Mem oria potassium 2-10 PO, Daily, l 50 mg oral 22:08: PRN Citlali nn tablet 15 NEEDED, # 15 tab, Refill(s) 2, HEADACHE., Pharmacy: [facility] #[id number] diclofenac 2017-02 No = 1 tab, Mem oria potassium 2-10 PO, Daily, l 50 mg oral 22:08: PRN Citlali nn tablet 15 NEEDED, # 15 tab, Refill(s) 2, HEADACHE., Pharmacy: [facility] #[id number] baclofen 2017-02 No See Memori a mg oral 1-27 Instructio l tablet 23:42: ns, 0.5-1 Geo n 00 tab PO bedtime start with 0.5 tab, incease as needed if 0.5 not help, # 30 tab, 2 Refill(s), Pharmacy: [facility] #[id number], This replaces Tizanidine baclofen 2017-02 No See Memori a mg oral 1-27 Instructio l tablet 23:42: ns, 0.5-1 Geo n 00 tab PO bedtime start with 0.5 tab, incease as needed if 0.5 not help, # 30 tab, 2 Refill(s), Pharmacy: [facility] #[id number], This replaces Tizanidine tizanidine 2017-02 No See Memoria 2 mg oral 0-25 Instructio l tablet 21:36: ns, 1 tab Citlali nn 00 PO bedtime x 2 days, then 2 tab PO bedtime thereafter , # 60 tab, 2 Refill(s), Pharmacy: [facility] #[id number] tizanidine 2017-02 No See Memoria 2 mg oral 0-25 Instructio l tablet 21:36: ns, 1 tab Citlali nn 00 PO bedtime x 2 days, then 2 tab PO bedtime thereafter , # 60 tab, 2 Refill(s), Pharmacy: [facility] #[id number] diclofenac 2017-02 No See Memoria potassium 0-24 Instructio l 50 mg oral 18:32: ns, 1 tab He rmann tablet 00 PO daily prn headache, # 15 tab, 2 Refill(s), Pharmacy: [facility] #[id number] naratriptan 2017-02 No See Memori a 1 mg oral 0-24 Instructio l tablet 18:32: ns, 1 tab Geo n 00 PO Daily prn headaches Add to Diclofenac Rx if if Diclofenac not sufficient , # 9 tab, 2 Refill(s), Pharmacy: [facility] #[id number], This Rx replaces Frovatript an diclofenac 2017-02 No See Memoria potassium 0-24 Instructio l 50 mg oral 18:32: ns, 1 tab He rmann tablet 00 PO daily prn headache, # 15 tab, 2 Refill(s), Pharmacy: [facility] #[id number] naratriptan 2017-02 No See Memori a 1 mg oral 0-24 Instructio l tablet 18:32: ns, 1 tab Geo n 00 PO Daily prn headaches Add to Diclofenac Rx if if Diclofenac not sufficient , # 9 tab, 2 Refill(s), Pharmacy: [facility] #[id number], This Rx replaces Frovatript an Tylenol 2017-02 No PO, 0 Memoria 0-24 Refill(s) l 15:38: [place] 00 Ibuprofen 2017-02 No 0 Memoria 0-24 Refill(s) l 15:38: [place] 00 Tylenol 2017- No PO, 0 Memoria 0-24 Refill(s) l 15:38: [place] 00 Ibuprofen 2017-02 No 0 Memoria 0-24 Refill(s) l 15:38: [place] 00 frovatripta 2017-0 No See Memori a n 2.5 MG 8-17 Instructio l Oral Tablet 15:52: ns, 1 tab H ermann [Frova] 00 PO Daily prn headache, Take with Ibupofen, # 9 tab, 2 Refill(s), Pharmacy: [facility] #[id number] frovatripta 2017-0 No See Memori a n 2.5 MG 8-17 Instructio l Oral Tablet 15:52: ns, 1 tab H ermann [Frova] 00 PO Daily prn headache, Take with Ibupofen, # 9 tab, 2 Refill(s), Pharmacy: [facility] #[id number] candesartan 2018-0 Yes 4 mg = 1 Me moria 4 mg oral 7-09 tab, PO, l tablet 17:04: QAM, 1 tab Citlali nn 00 every morning for 1 week, then 2 tab every morning thereafter . Decrease nortriptyl ine to 3 tabs at bedtime., # 60 tab, 1 Refill(s), Pharmacy: [facility] #[id number], for migraine headaches indomethaci 2018-0 Yes 25 mg = 1 M emoria n 25 mg 7-09 cap, PO, l oral 17:04: BID, PRN [place] capsule 00 Headache 6-10, 1 tab BID prn headache. Take with food or milk. Stop zanaflex when starting this medication ., # 40 cap, 1 Refill(s), Pharmacy: [facility] #[id number], For migraine headaches candesartan 2018-0 Yes 4 mg = 1 Me moria 4 mg oral 7-09 tab, PO, l tablet 17:04: QAM, 1 tab Citlali nn 00 every morning for 1 week, then 2 tab every morning thereafter . Decrease nortriptyl ine to 3 tabs at bedtime., # 60 tab, 1 Refill(s), Pharmacy: [facility] #[id number], for migraine headaches indomethaci 2018-0 Yes 25 mg = 1 M emoria n 25 mg 7-09 cap, PO, l oral 17:04: BID, PRN [place] capsule 00 Headache 6-10, 1 tab BID prn headache. Take with food or milk. Stop zanaflex when starting this medication ., # 40 cap, 1 Refill(s), Pharmacy: [facility] #[id number], For migraine headaches Promethazin 2018-0 Yes 25 mg = 1 M emoria e 7-05 tab, PO, l Hydrochlori 22:44: Q6H, PRN He rmann de 25 MG 00 Nausea & Oral Tablet Vomiting, # 28 tab, 0 Refill(s), Pharmacy: [facility] #[id number] acetaZOLAMI Yes 500 mg = 2 Memoria DE 250 mg 7-05 tab, PO, l oral tablet 22:44: Q12H, # Her orosco 00 120 tab, 1 Refill(s), Pharmacy: [facility] #[id number] Promethazin 2017- Yes 25 mg = 1 M emoria e 7-05 tab, PO, l Hydrochlori 22:44: Q6H, PRN He rmann de 25 MG 00 Nausea & Oral Tablet Vomiting, # 28 tab, 0 Refill(s), Pharmacy: [facility] #[id number] acetaZOLAMI Yes 500 mg = 2 Memoria DE 250 mg 7-05 tab, PO, l oral tablet 22:44: Q12H, # Her orosco 00 120 tab, 1 Refill(s), Pharmacy: [facility] #[id number] Acetazolami No Notes: Rafael cristina de 08-11 (Same as: l 19:23: Diamox) [place] Acetazolami No Notes: Rafael cristina de - (Same as: l 19:23: Diamox) [place] Magnesium No Notes: Memori a Sulfate 08-11 WASTE: F/P l 02:49: - Sink; E [place] 00 - Municipal Trash Bin Zofran No Notes: Memoria 08-11 (Same as: l 02:49: Zofran) [place] 00 MEDICATION WASTE Product Size: 4 mg Product Wasted: ___ mg Ketorolac No 4 days Memor ia 08-11 l 02:49: MEDICATION [place] WASTE Product Size: 30 mg Product Wasted: ___ mg Magnesium 2017- No Notes: Memori a Sulfate 08-11 WASTE: F/P l 02:49: - Sink; E - Municipal Trash Bin Zofran No Notes: Memoria 08-11 (Same as: l 02:49: Zofran) [place] 00 MEDICATION WASTE Product Size: 4 mg Product Wasted: ___ mg Ketorolac 2017-0 No 4 days Memor ia 08-11 l 02:49: MEDICATION [place] WASTE Product Size: 30 mg Product Wasted: ___ mg promethazin Yes 1{tbl} Take 1 MD e 7-05 tablet by Andelvis (PHENERGAN) 00:00: mouth as n 25 mg 00 needed. tablet promethazin 0 Yes Take 1 Rafael cristina e 7-05 tablet by l (PHENERGAN) 00:00: mouth as He rmann 25 mg 00 needed. tablet Ketorolac 2017-0 No 4 days Memor ia 08-10 l 19:45: MEDICATION [place] WASTE Product Size: 30 mg Product Wasted: ___ mg Zofran No Notes: Memoria 08-10 (Same as: l 19:45: Zofran) [place] 00 MEDICATION WASTE Product Size: 4 mg Product Wasted: ___ mg Ketorolac 2017-0 No 4 days Memor ia 08-10 l 19:45: MEDICATION [place] WASTE Product Size: 30 mg Product Wasted: ___ mg Zofran 0 No Notes: Memoria 08-10 (Same as: l 19:45: Zofran) [place] 00 MEDICATION WASTE Product Size: 4 mg Product Wasted: ___ mg Magnesium 2017-0 No Notes: Memori a Sulfate 08-10 WASTE: F/P l 19:44: - Sink; E - [facility] Magnesium No Notes: Memori a Sulfate 08-10 WASTE: F/P l 19:44: - Sink; E - [facility] Tr[facility] nortriptyli 2018-0 Yes 50 mg = 1 M emoria ne 50 mg 7-04 cap, PO, l oral 14:54: Bedtime, # Forrest capsule 00 30 cap, 1 Refill(s) levothyroxi 2018-0 Yes 137 Memori a ne 137 mcg 7-04 microgram l (0.137 mg) 14:54: = 1 tab, Her [place] oral tablet 00 PO, Daily, 0 Refill(s) nortriptyli 2018-0 Yes 50 mg = 1 M emoria ne 50 mg 7-04 cap, PO, l oral 14:54: Bedtime, # Forrest capsule 00 30 cap, 1 Refill(s) levothyroxi 2018-0 Yes 137 Memori a ne 137 mcg 7-04 microgram l (0.137 mg) 14:54: = 1 tab, Her o[place] oral tablet 00 PO, Daily, 0 Refill(s) Nortriptyli 2018-0 No Notes: Rafael cristina ne - (Same l 14:00: as:Tanika Clayton 00 , Aventyl) Premarin 2017-0 No 1.25 mg, 1 Mem oria 7-04 tab, l 14:00: Route: PO, 00 Drug form: TAB, Daily, Dosing Weight 68.182, kg, Start date: 08/10/17 9:00:00 CDT, Duration: 30 day, Stop date: 09/08/17 9:00:00 CDT Docusate 2018-0 No 100 mg, 1 Rafael cristina 7-04 cap, l 14:00: Route: PO, 00 Drug form: CAP, BID, Dosing Weight 68.182, kg, Start date: 08/10/17 9:00:00 CDT, Duration: 30 day, Stop date: 09/08/17 17:00:00 CDT Nortriptyli 2017-0 No Notes: Rafael cristina ne 7-04 (Same l 14:00: as:Tanika Clayton 00 , Aventyl) Premarin 2017-0 No 1.25 mg, 1 Mem oria 7-04 tab, l 14:00: Route: PO, [place] 00 Drug form: TAB, Daily, Dosing Weight 68.182, kg, Start date: 08/10/17 9:00:00 CDT, Duration: 30 day, Stop date: 09/08/17 9:00:00 CDT Docusate 2018-0 No 100 mg, 1 Rafael cristina 7-04 cap, l 14:00: Route: PO, [place] 00 Drug form: CAP, BID, Dosing Weight 68.182, kg, Start date: 08/10/17 9:00:00 CDT, Duration: 30 day, Stop date: 09/08/17 17:00:00 CDT Synthroid 2018-0 No 112 Memoria 7-04 microgram, l 11:30: 1 tab, Route: PO, Drug form: TAB, Q630AM, Dosing Weight 68.182, kg, Start date: 08/10/17 6:30:00 CDT, Duration: 30 day, Stop date: 09/08/17 6:30:00 CDT Synthroid 2018-0 No 112 Memoria 7-04 microgram, l 11:30: 1 tab, [place] 00 Route: PO, Drug form: TAB, Q630AM, Dosing Weight 68.182, kg, Start date: 08/10/17 6:30:00 CDT, Duration: 30 day, Stop date: 09/08/17 6:30:00 CDT Phenergan 2017-0 No Notes: Do Mem oria 7-04 not give l 07:16: IV push. [place] 00 (Same as: Phenergan) Phenergan 2017-0 No Notes: Do Mem oria 7-04 not give l 07:16: IV push. [place] 00 (Same as: Phenergan) Dexamethaso 2017-0 No Notes: Rafael cristina ne 08-10 Concentrat l 06:04: ion: [place] 00 4mg/ml Dexamethaso 2018-0 No Notes: Rafael cristina ne - Concentrat l 06:04: ion: [place] 00 4mg/ml APAP/butalb 2018-0 No 1 tab, Rafael cristina ital/caffei 08-09 Route: PO, l ne 23:10: Drug Form: [place] 00 TAB, Q4H, PRN Other -See Comment, Start date: 08/09/17 18:10:00 CDT, Duration: 30 day, Stop date: 09/08/17 18:09:00 CDT APAP/butalb 2018-0 No 1 tab, Rafael cristina ital/caffei 7-03 Route: PO, l ne 23:10: Drug Form: [place] 00 TAB, Q4H, PRN Other -See Comment, Start date: 08/09/17 18:10:00 CDT, Duration: 30 day, Stop date: 09/08/17 18:09:00 CDT Phenergan 2018-0 No 25 mg, 1 Rafael cristina 7-03 tab, l 23:08: Route: PO, [place] 00 Drug form: TAB, Q6H, PRN Nausea & Vomiting, Start date: 08/09/17 18:08:00 CDT, Duration: 30 day, Stop date: 09/08/17 18:07:00 CDT Phenergan 2018-0 No 25 mg, 1 Rafael cristina 7-03 tab, l 23:08: Route: PO, [place] 00 Drug form: TAB, Q6H, PRN Nausea & Vomiting, Start date: 08/09/17 18:08:00 CDT, Duration: 30 day, Stop date: 09/08/17 18:07:00 CDT normal 2018-0 No 1,000 mL, Memori a saline 0.9% 7-03 Rate: l IV 1,000 mL 22:27: 1,000 Citlali nn 00 ml/hr, Infuse over: 1 hr, Route: IV, Dosing Weight 68.182 kg, Total Volume: 1,000, Start date: 08/09/17 17:27:00 CDT, Duration: 1 doses or times, Stop date: 08/09/17 18:26:00 CDT, 1.85, m2 normal 2018-0 No 1,000 mL, Memori a saline 0.9% 7-03 Rate: l IV 1,000 mL 22:27: 1,000 Citlali nn 00 ml/hr, Infuse over: 1 hr, Route: IV, Dosing Weight 68.182 kg, Total Volume: 1,000, Start date: 08/09/17 17:27:00 CDT, Duration: 1 doses or times, Stop date: 08/09/17 18:26:00 CDT, 1.85, m2 normal 2018-0 No 1,000 mL, Memori a saline 0.9% 7-03 Rate: 125 l IV 1,000 mL 22:25: ml/hr, Herm mey 00 Infuse over: 8 hr, Route: IV, Dosing Weight 68.182 kg, Total Volume: 1,000, Start date: 08/09/17 17:25:00 CDT, Duration: 30 day, Stop date: 09/08/17 17:24:00 CDT, 1.85, m2 normal 2018-0 No 1,000 mL, Memori a saline 0.9% 08-09 Rate: 125 l IV 1,000 mL 22:25: ml/hr, Herm mey 00 Infuse over: 8 hr, Route: IV, Dosing Weight 68.182 kg, Total Volume: 1,000, Start date: 08/09/17 17:25:00 CDT, Duration: 30 day, Stop date: 09/08/17 17:24:00 CDT, 1.85, m2 Caffeine 2018-0 No 1 tab, Memoria 100 MG / 08-09 Route: PO, l Ergotamine 22:15: Drug Form: H ermann Tartrate 1 00 TAB, MG Oral Dosing Tablet Weight 68.182, kg, Q1H, PRN, Start date: 08/09/17 17:15:00 CDT, Duration: 30 day, Stop date: 09/08/17 17:14:00 CDT, migraine Caffeine 2018-0 No 1 tab, Memoria 100 MG / 08-09 Route: PO, l Ergotamine 22:15: Drug Form: H ermann Tartrate 1 00 TAB, MG Oral Dosing Tablet Weight 68.182, kg, Q1H, PRN, Start date: 08/09/17 17:15:00 CDT, Duration: 30 day, Stop date: 09/08/17 17:14:00 CDT, migraine Potassium 2018-0 No 40 mEq, 2 Mem oria Chloride 7-03 tab, l 22:07: Route: PO, [place] 00 Drug form: ERTAB, ONCE, Dosing Weight 68.182, kg, Start date: 08/09/17 17:07:00 CDT, Stop date: 08/09/17 17:07:00 CDT Potassium 2018-0 No 40 mEq, 2 Mem oria Chloride 7-03 tab, l 22:07: Route: PO, [place] Drug form: ERTAB, ONCE, Dosing Weight 68.182, kg, Start date: 08/09/17 17:07:00 CDT, Stop date: 08/09/17 17:07:00 CDT Acetaminoph No Notes: Do M emoria en 08-09 not exceed l 22:06: 4 gm/day. [place] (Same as: Tylenol) Ondansetron No Notes: Rafael cristina - (Same as: l 22:06: Zofran) [place] MEDICATION WASTE Product Size: 4 mg Product Wasted: ___ mg Acetaminoph No Notes: Rafael cristina en 325 MG / 08-09 (Same as: l Hydrocodone 22:06: [place] Citlali nn Bitartrate 00 325/5) Do 5 MG Oral not exceed Tablet 4gm/day of acetaminop hen. Acetaminoph No Notes: Do M emoria en 08-09 not exceed l 22:06: 4 gm/day. [place] (Same as: Tylenol) Ondansetron No Notes: Rafael cristina 7- (Same as: l 22:06: Zofran) [place] 00 MEDICATION WASTE Product Size: 4 mg Product Wasted: ___ mg Acetaminoph No Notes: Rafael cristina en 325 MG / 08-09 (Same as: l Hydrocodone 22:06: [place] Citlali nn Bitartrate 00 325/5) Do 5 MG Oral not exceed Tablet 4gm/day of acetaminop hen. Isolyte S No Notes: Memori a PH-7.4 7-03 (Same as: l (Bolus) IV 20:04: Isolyte S He rmann 00 PH 7.4) Isolyte S No Notes: Memori a PH-7.4 7-03 (Same as: l (Bolus) IV 20:04: Isolyte S He rmann 00 PH 7.4) Isolyte S No Notes: Memori a PH-7.4 7-03 (Same as: l (Bolus) IV 18:38: Isolyte S He rmann 00 PH 7.4) Isolyte S No Notes: Memori a PH-7.4 7-03 (Same as: l (Bolus) IV 18:38: Isolyte S He rmann 00 PH 7.4) Iohexol No Notes: Memoria 08-09 (Same l 17:43: as:Omnipaq [place] 00 ue 350). WASTE: F/P - Black; E - Municipal Trash Bin Iohexol No Notes: Memoria 08-09 (Same l 17:43: as:Omnipaq [place] 00 ue 350). WASTE: F/P - Black; E - Municipal Trash Bin Caffeine No 1 tab, PO, Mem oria 100 MG / 08-08 Q1H, PRN l Ergotamine 16:56: for [place] Tartrate 1 00 headache, MG Oral 2 tablets Tablet at start of attack; 1 additional tablet every 30 min, if needed, maximum 6 tab/day and 10 tab/week, X 2 day, # 20 tab, 0 Refill(s) Caffeine No 1 tab, PO, Mem oria 100 MG / 08-08 Q1H, PRN l Ergotamine 16:56: for [place] Tartrate 1 00 headache, MG Oral 2 tablets Tablet at start of attack; 1 additional tablet every 30 min, if needed, maximum 6 tab/day and 10 tab/week, X 2 day, # 20 tab, 0 Refill(s) Pts. No Pts. Memoria Home Med - 08-08 Home Med - l Premarin 14:00: Premarin Citlali nn 1.25 mg 00 1.25 mg, 1 each, Drug form: MISC, Route: PO, Daily, 08/08/17 9:00:00 CDT, Duration: 30 day, Stop date: 09/06/17 9:00:00 CDT Pts. No Pts. Mem[facility] Home Med - 08-08 Home Med - l Premarin 14:00: Premarin Citlali nn 1.25 mg 00 1.25 mg, 1 each, Drug form: MISC, Route: PO, Daily, 08/08/17 9:00:00 CDT, Duration: 30 day, Stop date: 09/06/17 9:00:00 CDT Dihydroergo No Notes: Rafael cristina tamine (Same as: l Mesylate 1 13:11: D.H.E. 45) H ermann MG/ML 00 Injectable Solution [DHE-45] Dihydroergo No Notes: Rafael cristina tamine - (Same as: l Mesylate 1 13:11: D.H.E. 45) H ermann MG/ML 00 Injectable Solution [DHE-45] Morphine 2017-0 No 2 mg, 1 Memori a 7- mL, Route: l 22:57: IVP, Drug form: SOLN, ONCE, Dosing Weight 112.983, kg, PRN Headache 6-10, Start date: 08/07/17 17:57:00 CDT Morphine 2017-0 No 2 mg, 1 Memori a 7- mL, Route: l 22:57: IVP, Drug form: SOLN, ONCE, Dosing Weight 112.983, kg, PRN Headache 6-10, Start date: 08/07/17 17:57:00 CDT Phenergan No Notes: Do Mem oria 08-07 not give l 21:15: IV push. [place] (Same as: Phenergan) Phenergan No Notes: Do Mem oria - not give l 21:15: IV push. [place] 00 (Same as: Phenergan) Bring No Bring Memor ia pts. Home 08-07 pts. Home l Med to 21:00: Med to [facility] pharmacy - Premarin Premarin *, 1 each, Drug form: MISC, Route: MISC, QSHIFT, 08/07/17 16:00:00 CDT, Duration: 30 day, Stop date: 09/06/17 8:00:00 CDT Bring No Bring Memor ia pts. Home 08-07 pts. Home l Med to 21:00: Med to [place] [id number] pharmacy - Premarin Premarin *, 1 each, Drug form: MISC, Route: MISC, QSHIFT, 08/07/17 16:00:00 CDT, Duration: 30 day, Stop date: 09/06/17 8:00:00 CDT Solu-Medrol No Notes: Rafael cristina 7-01 (Same l 16:42: as:Solu-ME [place] 00 DROL, A-Methapre d) Solu-Medrol No Notes: Rafael cristina 7- (Same l 16:42: as:Solu-ME [place] 00 DROL, A-Methapre d) tizanidine No Notes: Memor ia 7- (Same As: l 14:00: Zanaflex) [place] Nortriptyli No Notes: Rafael cristina ne 7- (Same l 14:00: as:Pamelor [place] 00 , Aventyl) Synthroid No Notes: Memori a 7-01 Take 1 l 14:00: hour [place] 00 before or 2 hours after meal; Enteral feeds may interefere with the absorption of this medication . (Same as:Levothr oid) Premarin No Notes: Memoria 7-01 (Same As: l 14:00: Premarin) [place] tizanidine No Notes: Memor ia 7- (Same As: l 14:00: Zanaflex) [place] Nortriptyli No Notes: Rafael cristina ne 7- (Same l 14:00: as:Pamelor [place] 00 , Aventyl) Synthroid No Notes: Memori a 7-01 Take 1 l 14:00: hour [place] 00 before or 2 hours after meal; Enteral feeds may interefere with the absorption of this medication . (Same as:Levothr oid) Premarin No Notes: Memoria 7-01 (Same As: l 14:00: Premarin) [place] Sumatriptan No Notes: Rafael cristina 7-01 For l 13:46: SUBCUTANEO [place] 00 US use only Sumatriptan No Notes: Rafael cristina 7-01 For l 13:46: SUBCUTANEO [place] 00 US use only Tylenol No Notes: Do Memor ia 7-01 not exceed l 13:25: 4 gm/day. [place] 00 (Same as: Tylenol) Saline No Notes: Memoria Flush 0.9% 7-01 preservati l 13:25: ve free. [place] 00 Sodium No 1,000 mL, Memori a Chloride 7- Rate: 125 l 0.9% IV 13:25: ml/hr, [place] 1,000 mL 00 Infuse over: 8 hr, Route: IV, Dosing Weight 112.983 kg, Total Volume: 1,000, Start date: 08/07/17 8:25:00 CDT, Duration: 30 day, Stop date: 09/06/17 8:24:00 CDT, 2.4, m2 Ondansetron No Notes: Rafael cristina 08-07 (Same as: l 13:25: Zofran) MEDICATION WASTE Product Size: 4 mg Product Wasted: ___ mg Tylenol No Notes: Do Memor ia 08-07 not exceed l 13:25: 4 gm/day. (Same as: Tylenol) Saline No Notes: Memoria Flush 0.9% 7- preservati l 13:25: ve free. Sodium No 1,000 mL, Memori a Chloride 7- Rate: 125 l 0.9% IV 13:25: ml/hr, [place] 1,000 mL 00 Infuse over: 8 hr, Route: IV, Dosing Weight 112.983 kg, Total Volume: 1,000, Start date: 08/07/17 8:25:00 CDT, Duration: 30 day, Stop date: 09/06/17 8:24:00 CDT, 2.4, m2 Ondansetron No Notes: Rafael cristina 08-07 (Same as: l 13:25: Zofran) MEDICATION WASTE Product Size: 4 mg Product Wasted: ___ mg Sumatriptan No 50 mg, Rafael cristina 08-07 Route: PO, l 13:24: Drug form: TAB, ONCE, Dosing Weight 112.983, kg, PRN Headache 4-6, Start date: 08/07/17 8:24:00 CDT Ondansetron 2018-0 No 4 mg, Memor ia 08-07 Route: l 13:24: IVP, Drug [place] 00 form: INJ, Q8H, Dosing Weight 112.983, kg, PRN Nausea, Start date: 08/07/17 8:24:00 CDT, Duration: 30 day, Stop date: 09/06/17 8:23:00 CDT Sumatriptan No 50 mg, Rafael cristina 08-07 Route: PO, l 13:24: Drug form: [place] 00 TAB, ONCE, Dosing Weight 112.983, kg, PRN Headache 4-6, Start date: 08/07/17 8:24:00 CDT Ondansetron No 4 mg, Memor ia 08-07 Route: l 13:24: IVP, Drug [place] 00 form: INJ, Q8H, Dosing Weight 112.983, kg, PRN Nausea, Start date: 08/07/17 8:24:00 CDT, Duration: 30 day, Stop date: 09/06/17 8:23:00 CDT Morphine 0 No Notes: Memoria 08-07 (Same l 12:14: as:MORPhin [place] 00 e Sulfate) Morphine No Notes: Memoria 08-07 (Same l 12:14: as:MORPhin [place] e Sulfate) Synthroid 0 No PO, Daily, Me moria 08-07 0 l 11:53: Refill(s) [place] 00 Nortriptyli No 50 mg, PO, Memoria ne 08-07 Daily, 0 l 11:53: Refill(s) [place] 00 Estrogens, 0 Yes 1.25 mg = Me moria Conjugated 08-07 1 tab, PO, l ([facility]) 1.25 11:53: Daily, 0 Her orosco MG Oral 00 Refill(s) Tablet [Premarin] tizanidine No 4 mg, PO, Me moria 08-07 BID, 0 l 11:53: Refill(s) [place] 00 Synthroid 0 No PO, Daily, Me moria 08-07 0 l 11:53: Refill(s) [place] 00 Nortriptyli 0 No 50 mg, PO, Memoria ne - Daily, 0 l 11:53: Refill(s) [place] 00 Estrogens, Yes 1.25 mg = Me moria Conjugated - 1 tab, PO, l ([facility]) 1.25 11:53: Daily, 0 Her orosco MG Oral 00 Refill(s) Tablet [Premarin] tizanidine No 4 mg, PO, Me moria 08-07 BID, 0 l 11:53: Refill(s) [place] 00 Zofran No Notes: Memoria 08-07 (Same as: l 11:44: Zofran) Zofran No Notes: Memoria 08-07 (Same as: l 11:44: Zofran) Zofran No Notes: Memoria 08-07 (Same as: l 04:14: Zofran) MEDICATION WASTE Product Size: 4 mg Product Wasted: ___ mg Zofran No Notes: Memoria 08-07 (Same as: l 04:14: Zofran) MEDICATION WASTE Product Size: 4 mg Product Wasted: ___ mg Magnesium No Notes: Memori a Sulfate 08-07 (Same as: l 03:04: MgSO4) WASTE: F/P - Sink; E - Municipal Trash Bin MEDICATION WASTE Product Size: 1000 mg Product Wasted: ___ mg Phenergan No 12.5 mg, Rafael cristina 08-07 Route: l 03:04: IVPB, [place] 00 ONCE, Dosing Weight 110.455, kg, Priority: STAT, Start date: 08/06/17 22:04:00 CDT, Stop date: 08/06/17 22:04:00 CDT Magnesium No Notes: Memori a Sulfate 08-07 (Same as: l 03:04: MgSO4) WASTE: F/P - Sink; E - Municipal Trash Bin MEDICATION WASTE Product Size: 1000 mg Product Wasted: ___ mg Phenergan No 12.5 mg, Rafael cristina 08-07 Route: l 03:04: IVPB, [place] 00 ONCE, Dosing Weight 110.455, kg, Priority: STAT, Start date: 08/06/17 22:04:00 CDT, Stop date: 08/06/17 22:04:00 CDT Divalproex No Notes: Memor ia Sodium 500 08-07 (Same as: l MG Enteric 03:03: Depakote Her orosco Coated 00 Delayed Tablet Release) Do not confuse with the extended-r elease tablet. Delayed absorption , enteric coated tablet. Do not crush Divalproex No Notes: Memor ia Sodium 500 08-07 (Same as: l MG Enteric 03:03: Depakote Her orosco Coated 00 Delayed Tablet Release) Do not confuse with the extended-r elease tablet. Delayed absorption , enteric coated tablet. Do not crush NS (Bolus) No 1,000 mL, Me moria IV 08-07 1,000 l 00:59: ml/hr, [place] 00 Infuse Over: 1 hr, Route: IV, 1,000, Drug form: INJ, ONCE, Priority: STAT, Dosing Weight 110.455 kg, Start date: 08/06/17 19:59:00 CDT, Stop date: 08/06/17 19:59:00 CDT Ketorolac No 4 days Memor ia 08-07 l 00:59: MEDICATION [place] WASTE Product Size: 30 mg Product Wasted: ___ mg Compazine No Notes: Memori a 08-07 (Same as: l 00:59: Compazine) [place] 00 Benadryl No Notes: Memoria 08-07 (Same as: l 00:59: Benadryl) [place] 00 NS (Bolus) No 1,000 mL, Me moria IV 08-07 1,000 l 00:59: ml/hr, [place] 00 Infuse Over: 1 hr, Route: IV, 1,000, Drug form: INJ, ONCE, Priority: STAT, Dosing Weight 110.455 kg, Start date: 08/06/17 19:59:00 CDT, Stop date: 08/06/17 19:59:00 CDT Ketorolac 0 No 4 days Memor ia 08-07 l 00:59: MEDICATION [place] 00 WASTE Product Size: 30 mg Product Wasted: ___ mg Compazine No Notes: Memori a 08-07 (Same as: l 00:59: Compazine) Benadryl No Notes: Memoria 08-07 (Same as: l 00:59: Benadryl) Zofran No Notes: Memoria 08-06 (Same as: l 19:21: Zofran) [place] 00 MEDICATION WASTE Product Size: 4 mg Product Wasted: ___ mg Dexamethaso No 10 mg, 2.5 Memoria ne 6-30 mL, Route: l 19:21: IVP, Drug form: INJ, ONCE, Dosing Weight 110.455, kg, Priority: STAT, Start date: 08/06/17 14:21:00 CDT, Stop date: 08/06/17 14:21:00 CDT Benadryl No Notes: Memoria 08-06 (Same as: l 19:21: Benadryl) Ketorolac No 4 days Memor ia 6-30 l 19:21: MEDICATION [place] 00 WASTE Product Size: 30 mg Product Wasted: ___ mg Zofran No Notes: Memoria 08-06 (Same as: l 19:21: Zofran) 00 MEDICATION WASTE Product Size: 4 mg Product Wasted: ___ mg Dexamethaso No 10 mg, 2.5 Memoria ne 6-30 mL, Route: l 19:21: IVP, Drug [place] 00 form: INJ, ONCE, Dosing Weight 110.455, kg, Priority: STAT, Start date: 08/06/17 14:21:00 CDT, Stop date: 08/06/17 14:21:00 CDT Benadryl 0 No Notes: Memoria 6-30 (Same as: l 19:21: Benadryl) [place] 00 Ketorolac No 4 days Memor ia 6-30 l 19:21: MEDICATION [place] WASTE Product Size: 30 mg Product Wasted: ___ mg normal No 1,000 mL, Memori a saline 0.9% 6-30 Rate: l IV 1,000 mL 19:20: 1,000 Citlali nn 00 ml/hr, Infuse over: 1 hr, Route: IV, Dosing Weight 110.455 kg, Total Volume: 1,000, Priority: STAT, Start date: 08/06/17 14:20:00 CDT, Duration: 1 doses or times, Stop date: 08/06/17 15:19:00 CDT, 2.37, m2 normal No 1,000 mL, Memori a saline 0.9% 6-30 Rate: l IV 1,000 mL 19:20: 1,000 Ictlali nn 00 ml/hr, Infuse over: 1 hr, Route: IV, Dosing Weight 110.455 kg, Total Volume: 1,000, Priority: STAT, Start date: 08/06/17 14:20:00 CDT, Duration: 1 doses or times, Stop date: 08/06/17 15:19:00 CDT, 2.37, m2 tizanidine Yes See Memoria 4 MG Oral 5-11 Instructio l Tablet 18:07: ns, 0.5 [place] [Zanaflex] 09 tab PO bedtime x 2 days, then 1 tab PO bedtime x 14 days, then stop, # 20 tab, 0 Refill(s), Pharmacy: [facility] #[id number] tizanidine Yes See Memoria 4 MG Oral 5-11 Instructio l Tablet 18:07: ns, 0.5 [place] [Zanaflex] 09 tab PO bedtime x 2 days, then 1 tab PO bedtime x 14 days, then stop, # 20 tab, 0 Refill(s), Pharmacy: [facility] #[id number] nortriptyli Yes See Memori a ne 10 mg 5-11 Instructio l oral 17:52: ns, after [place] capsule 00 stopping Zanaflex 1 cap PO PM x 1 wk, then 2 cap PM x 1 wk, then 3 cap PM x 1 wk, then 4 cap PM x 1 wk, then 5 cap PO thereafter , # 150 cap, 2 Refill(s), Pharmacy: [facility] #[id number] tizanidine No See Memoria 4 MG Oral 5-11 Instructio l Tablet 17:52: ns, 0.5 [place] [Zanaflex] 00 tab PO bedtime x 2 days, then 1 tab PO bedtime x 10 dyas, then stop, # 15 tab, 0 Refill(s), [id number] nortriptyli Yes See Memori a ne 10 mg 5-11 Instructio l oral 17:52: ns, after [place] capsule 00 stopping Zanaflex 1 cap PO PM x 1 wk, then 2 cap PM x 1 wk, then 3 cap PM x 1 wk, then 4 cap PM x 1 wk, then 5 cap PO thereafter , # 150 cap, 2 Refill(s), Pharmacy: [facility] #[id number] tizanidine No See Memoria 4 MG Oral 5-11 Instructio l Tablet 17:52: ns, 0.5 [place] [Zanaflex] 00 tab PO bedtime x 2 days, then 1 tab PO bedtime x 10 dyas, then stop, # 15 tab, 0 Refill(s), Pharmacy: [facility] #[id number] Ibuprofen Yes 0 Memoria 5-11 Refill(s) l 15:07: [place] 00 Tylenol 2017-0 Yes PO, 0 Memoria 5-11 Refill(s) l 15:07: [place] 00 Ibuprofen 2017-0 Yes 0 Memoria 5-11 Refill(s) l 15:07: [place] 00 Tylenol 2018-0 Yes PO, 0 Memoria 5-11 Refill(s) l 15:07: [place] 00 tiZANidine 2020- No tizanidine [facility] (ZANAFLEX) 06-[address] 4 MG tablet 00:00: 00:00 tablet Hos luz 00 :00 l tiZANidine 2017-2020- No tizanidine [facility] (ZANAFLEX) 06-17-[address] 4 MG tablet 00:00: 00:00 tablet Hos luz 00 :00 l HYDROmorpho No Memori a ne 3-14 l (DILAUDID) 00:00: [place] 2 mg tablet 00 HYDROmorpho 2020- No ne 3-14 08-16 Anderso (DILAUDID) 00:00: 00:00 n 2 mg tablet 00 :00 meloxicam No Take 1 Memori a (MOBIC) 15 3-03 tablet by l mg tablet 00:00: mouth [place] 00 daily. topiramate No Take 1 Memor ia (TOPAMAX) 3-03 tablet by l 25 mg 00:00: mouth [place] tablet 00 daily. meloxicam 2020- No 1{tbl} Take 1 MD (MOBIC) 15 04-09 tablet by And erso mg tablet 00:00: 00:00 mouth n 00 :00 daily. topiramate 2020- No 1{tbl} Take 1 MD (TOPAMAX) 04-09 tablet by Jake rso 25 mg 00:00: 00:00 mouth n tablet 00 :00 daily. Promethazin Yes 25 mg = 1 M emoria e 2-22 tab, PO, l Hydrochlori 20:49: Q6H, PRN He rmann de 25 MG 00 Nausea, X Oral Tablet 4 day, # [Phenergan] 30 tab, 0 Refill(s) Promethazin Yes 25 mg = 1 M emoria e 2-22 tab, PO, l Hydrochlori 20:49: Q6H, PRN He rmann de 25 MG 00 Nausea, X Oral Tablet 4 day, # [Phenergan] 30 tab, 0 Refill(s) Acetaminoph Yes 1-2 tab, Me moria en 325 MG / 2-22 PO, Q4-6H, l Hydrocodone 19:45: PRN Pain, H ermann Bitartrate 00 X 5 day, # 10 MG Oral 30 tab, 0 Tablet Refill(s) [[place] 10/325] Acetaminoph Yes 1-2 tab, Me moria en 325 MG / 2-22 PO, Q4-6H, l Hydrocodone 19:45: PRN Pain, H ermann Bitartrate 00 X 5 day, # 10 MG Oral 30 tab, 0 Tablet Refill(s) [[place] 10/325] Acetaminoph No 1 tab, Rafael cristina en 325 MG / 2-22 Route: PO, l Hydrocodone 19:36: Drug Form: [place] Bitartrate 00 TAB, 10 MG Oral Dosing Tablet Weight [[place] 97.727, 10325] kg, ONCE, STAT, Start date: 03/31/15 13:36:00, Stop date: 03/31/15 13:36:00 Acetaminoph 2016-0 No 1 tab, Rafael cristina en 325 MG / 2-22 Route: PO, l Hydrocodone 19:36: Drug Form: [place] Bitartrate 00 TAB, 10 MG Oral Dosing Tablet Weight [[place] 97.727, 10325] kg, ONCE, STAT, Start date: 03/31/15 13:36:00, Stop date: 03/31/15 13:36:00 Phenergan 2016-0 No 25 mg, Memori a 2-22 Route: l 18:31: IVPB, [place] 00 ONCE, Dosing Weight 97.727, kg, Priority: STAT, Start date: 03/31/15 12:31:00, Stop date: 03/31/15 12:31:00 Morphine 2016-0 No 4 mg, Memoria 2-22 Route: l 18:31: IVP, Drug [place] 00 form: INJ, ONCE, Dosing Weight 97.727, kg, Priority: STAT, Start date: 03/31/15 12:31:00, Stop date: 03/31/15 12:31:00 Phenergan 2016-0 No 25 mg, Memori a 2-22 Route: l 18:31: IVPB, [place] 00 ONCE, Dosing Weight 97.727, kg, Priority: STAT, Start date: 03/31/15 12:31:00, Stop date: 03/31/15 12:31:00 Morphine 2016-0 No 4 mg, Memoria 2-22 Route: l 18:31: IVP, Drug [place] 00 form: INJ, ONCE, Dosing Weight 97.727, kg, Priority: STAT, Start date: 03/31/15 12:31:00, Stop date: 03/31/15 12:31:00 Zofran 2016-0 No 4 mg, Memoria 2-22 Route: l 17:46: IVP, Drug Forrest 00 form: INJ, ONCE, Dosing Weight 97.727, kg, Priority: STAT, Start date: 03/31/15 11:46:00, Stop date: 03/31/15 11:46:00 Morphine 2016-0 No 4 mg, Memoria 2-22 Route: l 17:46: IVP, Drug [place] 00 form: INJ, ONCE, Dosing Weight 97.727, kg, Priority: STAT, Start date: 03/31/15 11:46:00, Stop date: 03/31/15 11:46:00 Zofran 2016-0 No 4 mg, Memoria 2 Route: l 17:46: IVP, Drug [place] 00 form: INJ, ONCE, Dosing Weight 97.727, kg, Priority: STAT, Start date: 03/31/15 11:46:00, Stop date: 03/31/15 11:46:00 Morphine 2016-0 No 4 mg, Memoria 2 Route: l 17:46: IVP, Drug [place] 00 form: INJ, ONCE, Dosing Weight 97.727, kg, Priority: STAT, Start date: 03/31/15 11:46:00, Stop date: 03/31/15 11:46:00 Acetaminoph 2014- Yes 1 tab, PO, Memoria en 325 MG / 7-24 TID, PRN l Hydrocodone 16:13: Pain, # 30 [place] Bitartrate 00 tab, 0 10 MG Oral Refill(s), Tablet given to [[place] patient ] Acetaminoph Yes 1 tab, PO, Memoria en 325 MG / 7-24 TID, PRN l Hydrocodone 16:13: Pain, # 30 [place] Bitartrate 00 tab, 0 10 MG Oral Refill(s), Tablet given to [[place] patient ] meclizine Yes 25 mg = 1 Mem oria 25 mg oral 7-24 tab, PO, l tablet 15:52: TID, PRN [place] 28 Other-See Comments, X 10 day, # 30 tab, 0 Refill(s) meclizine 2014- Yes 25 mg = 1 Mem oria 25 mg oral 7-24 tab, PO, l tablet 15:52: TID, PRN [place] 28 Other-See Comments, X 10 day, # 30 tab, 0 Refill(s) Doxycycline Yes 100 mg = 1 Memoria 100 MG Oral 7-24 cap, PO, l Capsule 15:52: Q12H, X 14 Herm mey 00 day, # 28 cap, 0 Refill(s) rivaroxaban Yes 20 mg = 1 M emoria 20 MG Oral 7-24 tab, PO, l Tablet 15:52: QPM, # 30 Geo n [Xarelto] 00 tab, 3 Refill(s) Doxycycline Yes 100 mg = 1 Memoria 100 MG Oral 7-24 cap, PO, l Capsule 15:52: Q12H, X 14 Herm mey 00 day, # 28 cap, 0 Refill(s) rivaroxaban Yes 20 mg = 1 M emoria 20 MG Oral 7-24 tab, PO, l Tablet 15:52: QPM, # 30 Geo n [Xarelto] 00 tab, 3 Refill(s) ketOROLAC No 4 days Memor ia 30 mg/mL 08-29 l injectable 23:29: MEDICATION H ermann solution 00 WASTE Product Size: 30 mg Product Wasted: ___ mg ketOROLAC No 4 days Memor ia 30 mg/mL 08-29 l injectable 23:29: MEDICATION H ermann solution 00 WASTE Product Size: 30 mg Product Wasted: ___ mg Acetaminoph No Notes: Rafael cristina en 08-29 Infuse l 23:27: over 15 [place] 00 minutes Do not exceed 4gm/day of acetaminop hen MEDICATION WASTE Product Size: 1000 mg Product Wasted: ___ mg Acetaminoph No Notes: Rafael cristina en 08-29 Infuse l 23:27: over 15 [place] 00 minutes Do not exceed 4gm/day of acetaminop hen MEDICATION WASTE Product Size: 1000 mg Product Wasted: ___ mg Morphine No Notes: Memoria 08-29 (Same l 14:49: as:MORPhin [place] 00 e Sulfate) Morphine No Notes: Memoria 08-29 (Same l 14:49: as:MORPhin [place] 00 e Sulfate) Rocephin No Notes: Memoria 08-28 (Same As: l 18:37: Rocephin) [place] 00 Zithromax No Notes: Memori a 250 mg oral 7-22 Take 1 l tablet 18:37: hour [place] 00 before or 2 hours after meals. (Same As: Zithromax) Rocephin No Notes: Memoria 7-22 (Same As: l 18:37: Rocephin) [place] Zithromax No Notes: Memori a 250 mg oral 7-22 Take 1 l tablet 18:37: hour [place] 00 before or 2 hours after meals. (Same As: Zithromax) pneumococca No Notes: Rafael cristina l capsular 7-22 (Same as: l polysacchar 14:00: Pneumovax H ermann juanjo type 1 00 23) vaccine / Refrigerat pneumococca e l capsular polysacchar juanjo type 10A vaccine / pneumococca l capsular polysacchar juanjo type 11A vaccine / pneumococca l capsular polysacchar juanjo type 12F vaccine / pneumococca l capsular polysacchar pneumococca No Notes: Rafael cristina l capsular 7-22 (Same as: l polysacchar 14:00: Pneumovax H ermann juanjo type 1 00 23) vaccine / Refrigerat pneumococca e l capsular polysacchar juanjo type 10A vaccine / pneumococca l capsular polysacchar juanjo type 11A vaccine / pneumococca l capsular polysacchar juanjo type 12F vaccine / pneumococca l capsular polysacchar Morphine No Notes: Memoria 7-21 (Same l 22:29: as:MORPhin [place] 00 e Sulfate) Morphine No Notes: Memoria 7-21 (Same l 22:29: as:MORPhin [place] 00 e Sulfate) Tylenol No Notes: Do Memor ia 7-21 not exceed l 16:30: 4 gm/day. [place] 00 (Same as: Tylenol) tramadol No Notes: Not Mem oria hydrochlori -21 to exceed l de 50 MG 16:30: 400mg/day. Her orosco Oral Tablet 00 (Same As: Ultram) Tylenol No Notes: Do Memor ia 7-21 not exceed l 16:30: 4 gm/day. [place] 00 (Same as: Tylenol) tramadol No Notes: Not Mem oria hydrochlori 08-27 to exceed l de 50 MG 16:30: 400mg/day. Her orosco Oral Tablet 00 (Same As: Ultram) Lorazepam No Notes: Memori a 08-27 (Same as: l 16:24: Ativan) Lorazepam No Notes: Memori a 08-27 (Same as: l 16:24: Ativan) Synthroid No Notes: Memori a - Take 1 l 11:30: hour [place] 00 before or 2 hours after meal; Enteral feeds may interefere with the absorption of this medication .(Same as:Levothr oid) Synthroid No Notes: Memori a 08-27 Take 1 l 11:30: hour [place] 00 before or 2 hours after meal; Enteral feeds may interefere with the absorption of this medication .(Same as:Levothr oid) rivaroxaban No Notes: Rafael cristina 08-27 (Same as: l 11:00: Xarelto) Administer with food rivaroxaban No Notes: Rafael cristina 08-27 (Same as: l 11:00: Xarelto) Administer with food Meclizine No Notes: Memori a 08-27 (Same as: l 01:59: Antivert) Meclizine No Notes: Memori a 08-27 (Same as: l 01:59: Antivert) Zofran No 4 mg, Memoria 08-27 Route: l 01:17: IVP, Drug form: INJ, ONCE, Dosing Weight 88.636, kg, Start date: 08/26/14 20:17:00, Stop date: 08/26/14 20:17:00 Meclizine No 25 mg, Memori a 08-27 Route: PO, l 01:17: ONCE, Dosing Weight 88.636, kg, Start date: 08/26/14 20:17:00, Stop date: 08/26/14 20:17:00 Zofran No 4 mg, Memoria 08-27 Route: l 01:17: IVP, Drug form: INJ, ONCE, Dosing Weight 88.636, kg, Start date: 08/26/14 20:17:00, Stop date: 08/26/14 20:17:00 Meclizine 2014- No 25 mg, Memori a 7- Route: PO, l 01:17: ONCE, Dosing Weight 88.636, kg, Start date: 08/26/14 20:17:00, Stop date: 08/26/14 20:17:00 Ondansetron No Notes: Rafael cristina - (Same as: l 00:56: Zofran) [place] 00 MEDICATION WASTE Product Size: 4 mg Product Wasted: ___ mg Docusate No Notes: Memoria 08-27 (Same as: l 00:56: Colace) [place] 00 (Do Not Crush) Ondansetron No Notes: Rafael cristina 08-27 (Same as: l 00:56: Zofran) [place] 00 MEDICATION WASTE Product Size: 4 mg Product Wasted: ___ mg Docusate 2014- No Notes: Memoria -21 (Same as: l 00:56: Colace) [place] (Do Not Crush) meclizine No 25 mg = 1 Mem oria 25 mg oral 7-20 tab, PO, l tablet 22:43: TID, PRN [place] 00 Other-See Comments, X 10 day, # 30 tab, 0 Refill(s) meclizine No 25 mg = 1 Mem oria 25 mg oral 7-20 tab, PO, l tablet 22:43: TID, PRN [place] 00 Other-See Comments, X 10 day, # 30 tab, 0 Refill(s) Ativan 0 No 1 mg, Memoria 7-20 Route: l 22:00: IVP, Drug form: INJ, ONCE, Dosing Weight 88.636, kg, Priority: STAT, Start date: 08/26/14 17:00:00, Stop date: 08/26/14 17:00:00 Ketorolac 2014-0 No 30 mg, Memori a 7-20 Route: l 22:00: IVP, Drug [place] 00 form: INJ, ONCE, Dosing Weight 88.636, kg, Priority: STAT, Start date: 08/26/14 17:00:00, Stop date: 08/26/14 17:00:00 Ativan 2015-0 No 1 mg, Memoria 7-20 Route: l 22:00: IVP, Drug [place] 00 form: INJ, ONCE, Dosing Weight 88.636, kg, Priority: STAT, Start date: 08/26/14 17:00:00, Stop date: 08/26/14 17:00:00 Ketorolac 2015-0 No 30 mg, Memori a 7-20 Route: l 22:00: IVP, Drug [place] 00 form: INJ, ONCE, Dosing Weight 88.636, kg, Priority: STAT, Start date: 08/26/14 17:00:00, Stop date: 08/26/14 17:00:00 Zofran 2015-0 No 4 mg, Memoria 7-20 Route: l 20:21: IVP, Drug [place] 00 form: INJ, ONCE, Dosing Weight 88.636, kg, Priority: STAT, Start date: 08/26/14 15:21:00, Stop date: 08/26/14 15:21:00 Zofran 2015-0 No 4 mg, Memoria 7-20 Route: l 20:21: IVP, Drug [place] 00 form: INJ, ONCE, Dosing Weight 88.636, kg, Priority: STAT, Start date: 08/26/14 15:21:00, Stop date: 08/26/14 15:21:00 Morphine 2015-0 No 4 mg, Memoria 7-20 Route: l 20:20: IVP, Drug [place] 00 form: INJ, ONCE, Dosing Weight 88.636, kg, Priority: STAT, Start date: 08/26/14 15:20:00, Stop date: 08/26/14 15:20:00 Morphine 2015-0 No 4 mg, Memoria 7-20 Route: l 20:20: IVP, Drug [place] 00 form: INJ, ONCE, Dosing Weight 88.636, kg, Priority: STAT, Start date: 08/26/14 15:20:00, Stop date: 08/26/14 15:20:00 Meclizine 2015-0 No Notes: Memori a 7-20 (Same as: l 19:28: Antivert) Sodium No 1,000 mL, Memori a Chloride 7-20 1000 l 0.154 19:28: ml/hr, [place] MEQ/ML 00 Infuse Injectable Over: 1 Solution hr, Route: IV, 1,000, Drug form: INJ, ONCE, Priority: STAT, Dosing Weight 88.636 kg, Start date: 08/26/14 14:28:00, Duration: 1 doses or times, Stop date: 08/26/14 14:28:00 Saline No Notes: Memoria Flush 0.9% 7-20 (Same as: l 19:28: BD [place] 00 Posiflush) Meclizine No Notes: Memori a 7-20 (Same as: l 19:28: Antivert) Sodium No 1,000 mL, Memori a Chloride 7-20 1000 l 0.154 19:28: ml/hr, [place] MEQ/ML 00 Infuse Injectable Over: 1 Solution hr, Route: IV, 1,000, Drug form: INJ, ONCE, Priority: STAT, Dosing Weight 88.636 kg, Start date: 08/26/14 14:28:00, Duration: 1 doses or times, Stop date: 08/26/14 14:28:00 Saline No Notes: Memoria Flush 0.9% 7-20 (Same as: l 19:28: BD [place] 00 Posiflush) SYNTHROID Yes Memoria 112 MCG 7-09 l TABS 00:00: XARELTO Yes Memoria TABS 7-09 l 00:00: [place] 00 SYNTHROID Yes Memoria 112 MCG 7-09 l TABS 00:00: XARELTO Yes Memoria TABS 7-09 l 00:00: rivaroxaban Yes 15 mg = 1 M emoria 15 mg oral 7-04 tab, PO, l tablet 16:17: [id number], # Citlali nn 00 30 tab, 1 Refill(s) rivaroxaban Yes 15 mg = 1 M emoria 15 mg oral 7-04 tab, PO, l tablet 16:17: [id number], # Citlali nn 00 30 tab, 1 Refill(s) Xarelto No Notes: Memoria 08-09 (Same as: l 23:00: Xarelto) [place] 00 Administer with food Xarelto No Notes: Memoria 08-09 (Same as: l 23:00: Xarelto) [place] Administer with food Ofirmev No Notes: Memoria 08-07 Infuse l 23:00: over 15 [place] 00 minutes Do not exceed 4gm/day of acetaminop hen MEDICATION WASTE Product Size: 1000 mg Product Wasted: ___ mg Ofirmev No Notes: Memoria 08-07 Infuse l 23:00: over 15 [place] 00 minutes Do not exceed 4gm/day of acetaminop hen MEDICATION WASTE Product Size: 1000 mg Product Wasted: ___ mg docusate No Notes: Memoria sodium 100 08-07 (Same as: l mg oral 22:00: Colace) [place] capsule 00 (Do Not Crush) docusate No Notes: Memoria sodium 100 08-07 (Same as: l mg oral 22:00: Colace) [place] capsule 00 (Do Not Crush) Phenergan No 6.25 mg, Rafael cristina 08-07 Route: l 19:03: IVPB, [place] 00 ONCE, Dosing Weight 85.909, kg, Start date: 08/07/14 14:03:00, Stop date: 08/07/14 14:03:00 Phenergan No 6.25 mg, Rafael cristina 08-07 Route: l 19:03: IVPB, [place] 00 ONCE, Dosing Weight 85.909, kg, Start date: 08/07/14 14:03:00, Stop date: 08/07/14 14:03:00 Acetaminoph No 1 tab, Rafael cristina en 325 MG / 08-07 Route: PO, l Hydrocodone 18:31: Drug Form: [place] Bitartrate 00 TAB, 5 MG Oral Dosing Tablet Weight [[place] 85.909, 5/325] kg, Q4H, PRN Pain, Start date: 08/07/14 13:31:00, Duration: 30 day, Stop date: 09/06/14 13:30:00 Ondansetron 2014-0 No 4 mg, Memor ia 08-07 Route: l 18:31: IVP, ONCE, [place] 00 Dosing Weight 85.909, kg, PRN Nausea & Vomiting, Start date: 08/07/14 13:31:00 Naloxone 2014-0 No 0.04 mg, Memor ia 08-07 Route: l 18:31: IVP, [place] 00 Q2MIN, Dosing Weight 85.909, kg, PRN Narcotic Reversal, Start date: 08/07/14 13:31:00, Duration: 8 doses or times, Stop date: Limited # of times Flumazenil 2014-0 No 0.2 mg, Rafael cristina 08-07 Route: l 18:31: IVP, PRN, [place] 00 Dosing Weight 85.909, kg, PRN Benzodiaze pine Reversal, Initial dose, Start date: 08/07/14 13:31:00, Duration: 30 day, Stop date: 09/06/14 13:30:00 Meperidine 2014-0 No 12.5 mg, Mem oria 08-07 Route: l 18:31: IVP, [place] 00 Q30Min, Dosing Weight 85.909, kg, PRN Other -See Comment, For shivering, Start date: 08/07/14 13:31:00, Duration: 2 doses or times, Stop date: Limited # of times Acetaminoph 2014-0 No 1,000 mg, M emoria en 08-07 Route: l 18:31: IVPB, Drug form: INJ, ONCE, Dosing Weight 85.909, kg, PRN Pain Score 1-3, Start date: 08/07/14 13:31:00, Duration: 1 doses or times, Stop date: Limited # of times Fentanyl 2014-0 No 25 Memoria 08-07 microgram, l 18:31: Route: [place] 00 IVP, Q5Min, Dosing Weight 85.909, kg, PRN Pain Score 4-6, Start date: 08/07/14 13:31:00, Duration: 4 doses or times, Stop date: Limited # of times Hydromorpho 2015-0 No 0.5 mg, Mem oria ne 08-07 Route: l 18:31: IVP, [place] 00 Q5Min, Dosing Weight 85.909, kg, PRN Pain Score 7-10, Start date: 08/07/14 13:31:00, Duration: 4 doses or times, Stop date: Limited # of times Acetaminoph 2015-0 No 1 tab, Rafael cristina en 325 MG / 08-07 Route: PO, l Hydrocodone 18:31: Drug Form: [place] Bitartrate 00 TAB, 5 MG Oral Dosing Tablet Weight [[place] 85.909, 5/325] kg, Q4H, PRN Pain, Start date: 08/07/14 13:31:00, Duration: 30 day, Stop date: 09/06/14 13:30:00 Ondansetron 2015-0 No 4 mg, Memor ia 08-07 Route: l 18:31: IVP, ONCE, [place] 00 Dosing Weight 85.909, kg, PRN Nausea & Vomiting, Start date: 08/07/14 13:31:00 Naloxone 2015-0 No 0.04 mg, Memor ia 08-07 Route: l 18:31: IVP, [place] 00 Q2MIN, Dosing Weight 85.909, kg, PRN Narcotic Reversal, Start date: 08/07/14 13:31:00, Duration: 8 doses or times, Stop date: Limited # of times Flumazenil 2015-0 No 0.2 mg, Rafael cristina 08-07 Route: l 18:31: IVP, PRN, [place] 00 Dosing Weight 85.909, kg, PRN Benzodiaze pine Reversal, Initial dose, Start date: 08/07/14 13:31:00, Duration: 30 day, Stop date: 09/06/14 13:30:00 Meperidine 2015-0 No 12.5 mg, Mem oria 08-07 Route: l 18:31: IVP, [place] 00 Q30Min, Dosing Weight 85.909, kg, PRN Other -See Comment, For shivering, Start date: 08/07/14 13:31:00, Duration: 2 doses or times, Stop date: Limited # of times Acetaminoph 2015-0 No 1,000 mg, M hyunria en 08-07 Route: l 18:31: IVPB, Drug [place] 00 form: INJ, ONCE, Dosing Weight 85.909, kg, PRN Pain Score 1-3, Start date: 08/07/14 13:31:00, Duration: 1 doses or times, Stop date: Limited # of times Fentanyl No 25 Memoria 08-07 microgram, l 18:31: Route: [place] 00 IVP, Q5Min, Dosing Weight 85.909, kg, PRN Pain Score 4-6, Start date: 08/07/14 13:31:00, Duration: 4 doses or times, Stop date: Limited # of times Hydromorpho No 0.5 mg, Mem oria ne 08-07 Route: l 18:31: IVP, [place] 00 Q5Min, Dosing Weight 85.909, kg, PRN Pain Score 7-10, Start date: 08/07/14 13:31:00, Duration: 4 doses or times, Stop date: Limited # of times Sodium No 1,000 mL, Memori a Chloride 08-07 Rate: 125 l 0.154 18:13: ml/hr, [place] MEQ/ML 00 Infuse Injectable over: 8 Solution hr, Route: IV, Dosing Weight 85.909 kg, Total Volume: 1,000, Start date: 08/07/14 13:13:00, Duration: 30 day, Stop date: 09/06/14 13:12:00 Saline No Notes: Memoria Flush 0.9% 08-07 (Same as: l 18:13: BD [place] Posiflush) Ondansetron No Notes: Rafael cristina 08-07 (Same as: l 18:13: Zofran) [place] 00 MEDICATION WASTE Product Size: 4 mg Product Wasted: ___ mg Morphine No Notes: Memoria 08-07 (Same l 18:13: as:MORPhin [place] 00 e Sulfate) Acetaminoph No Notes: Rafael cristina en 325 MG / 08-07 (Same as: l Hydrocodone 18:13: [place] Citlali nn Bitartrate 00 325/5) Do 5 MG Oral not exceed Tablet 4gm/day of acetaminop hen. Sodium No 1,000 mL, Memori a Chloride 08-07 Rate: 125 l 0.154 18:13: ml/hr, [place] MEQ/ML 00 Infuse Injectable over: 8 Solution hr, Route: IV, Dosing Weight 85.909 kg, Total Volume: 1,000, Start date: 08/07/14 13:13:00, Duration: 30 day, Stop date: 09/06/14 13:12:00 Saline No Notes: Memoria Flush 0.9% 08-07 (Same as: l 18:13: BD [place] 00 Posiflush) Ondansetron No Notes: Rafael cristina 08-07 (Same as: l 18:13: Zofran) [place] 00 MEDICATION WASTE Product Size: 4 mg Product Wasted: ___ mg Morphine No Notes: Memoria 08-07 (Same l 18:13: as:MORPhin [place] 00 e Sulfate) Acetaminoph No Notes: Rafael cristina en 325 MG / 08-07 (Same as: l Hydrocodone 18:13: [place] Citlali nn Bitartrate 00 325/5) Do 5 MG Oral not exceed Tablet 4gm/day of acetaminop hen. Morphine No Notes: Memoria 08-07 (Same l 14:49: as:MORPhin [place] 00 e Sulfate) normal No 1,000 mL, Memori a saline 0.9% 08-07 Rate: 100 l IV 1,000 mL 14:49: ml/hr, Herm mey 00 Infuse over: 10 hr, Route: IV, Dosing Weight 85.909 kg, Total Volume: 1,000, Start date: 08/07/14 9:49:00, Duration: 30 day, Stop date: 09/06/14 9:48:00 Morphine No Notes: Memoria 08-07 (Same l 14:49: as:MORPhin [place] 00 e Sulfate) normal No 1,000 mL, Memori a saline 0.9% 08-07 Rate: 100 l IV 1,000 mL 14:49: ml/hr, Herm mey 00 Infuse over: 10 hr, Route: IV, Dosing Weight 85.909 kg, Total Volume: 1,000, Start date: 08/07/14 9:49:00, Duration: 30 day, Stop date: 09/06/14 9:48:00 Zofran No Notes: Memoria 08-07 (Same as: l 04:35: Zofran) [place] 00 MEDICATION WASTE Product Size: 4 mg Product Wasted: ___ mg Zofran No Notes: Memoria 08-07 (Same as: l 04:35: Zofran) [place] 00 MEDICATION WASTE Product Size: 4 mg Product Wasted: ___ mg Synthroid No Notes: Memori a 6-30 Take 1 l 11:30: hour [place] 00 before or 2 hours after meal; Enteral feeds may interefere with the absorption of this medication .(Same as:Levothr oid) Synthroid No Notes: Memori a 6-30 Take 1 l 11:30: hour [place] 00 before or 2 hours after meal; Enteral feeds may interefere with the absorption of this medication .(Same as:Levothr oid) Lovenox No Notes: Memoria 30 Nurse to l 09:00: ensure [place] 00 documentat ion of patient education per anticoagul ation policy. (Same as: Lovenox) Lovenox No Notes: Memoria 630 Nurse to l 09:00: ensure [place] 00 documentat ion of patient education per anticoagul ation policy. (Same as: Lovenox) Ondansetron No Notes: Rafael cristina 08-05 (Same as: l 22:46: Zofran) [place] 00 MEDICATION WASTE Product Size: 4 mg Product Wasted: ___ mg Docusate No Notes: Memoria 08-05 (Same as: l 22:46: Colace) [place] 00 (Do Not Crush) Acetaminoph No Notes: Rafael cristina en 325 MG / 08-05 (Same as: l Hydrocodone 22:46: [place] Citlali nn Bitartrate 00 325/5) Do 5 MG Oral not exceed Tablet 4gm/day of acetaminop hen. Ondansetron No Notes: Rafael cristina 08-05 (Same as: l 22:46: Zofran) [place] 00 MEDICATION WASTE Product Size: 4 mg Product Wasted: ___ mg Docusate No Notes: Memoria 08-05 (Same as: l 22:46: Colace) [place] 00 (Do Not Crush) Acetaminoph No Notes: Rafael cristina en 325 MG / 08-05 (Same as: l Hydrocodone 22:46: [place] Citlali nn Bitartrate 00 325/5) Do 5 MG Oral not exceed Tablet 4gm/day of acetaminop hen. Levothyroxi Yes 112 Memori a ne Sodium 6-29 microgram l 0.112 MG 20:41: = 1 tab, Cit[place] nn Oral Tablet 00 PO, Daily, [Synthroid] # 30 tab, 0 Refill(s) Levothyroxi Yes 112 Memori a ne Sodium 6-29 microgram l 0.112 MG 20:41: = 1 tab, [place] nn Oral Tablet 00 PO, Daily, [Synthroid] # 30 tab, 0 Refill(s) Lovenox No Notes: Andreoria 08-05 Nurse to l 20:00: ensure [place] 00 documentat ion of patient education per anticoagul ation policy. (Same as: Lovenox) Lovenox No Notes: Andreoria 08-05 Nurse to l 20:00: ensure [place] 00 documentat ion of patient education per anticoagul ation policy. (Same as: Lovenox) Prednisone No 60 mg, Memor ia 08-05 Route: PO, l 18:15: Drug form: [place] 00 TAB, ONCE, Dosing Weight 85.909, kg, Priority: STAT, Start date: 08/05/14 13:15:00, Stop date: 08/05/14 13:15:00 Prednisone No 60 mg, Memor ia 08-05 Route: PO, l 18:15: Drug form: [place] 00 TAB, ONCE, Dosing Weight 85.909, kg, Priority: STAT, Start date: 08/05/14 13:15:00, Stop date: 08/05/14 13:15:00 Dicyclomine 2015-0 Yes 20 mg = 1 M emoria Hydrochlori 2-26 tab, PO, l de 20 MG 21:34: QID, # 28 Herm mey Oral Tablet 00 tab, 0 [Bentyl] Refill(s) Ondansetron 2014-0 Yes Special Mem oria 4 MG 2-26 Instructio l Disintegrat 21:34: ns: Geo n ing Tablet 00 Dissolve [Zofran] tab under tongue Dicyclomine 2014-0 Yes 20 mg = 1 M emoria Hydrochlori 2-26 tab, PO, l de 20 MG 21:34: QID, # 28 Herm mey Oral Tablet 00 tab, 0 [Bentyl] Refill(s) Ondansetron 0 Yes Special [facility] 4 MG 2-26 Instructio l Disintegrat 21:34: ns: Geo n ing Tablet 00 Dissolve [Zofran] tab under tongue tramadol 0 Yes 50 mg = 1 Rafael cristina hydrochlori 2-26 tab, PO, l de 50 MG 21:33: Q4H, # 24 Herm mey Oral Tablet 00 tab, 0 Refill(s) tramadol 0 Yes 50 mg = 1 Rafael cristina hydrochlori 2-26 tab, PO, l de 50 MG 21:33: Q4H, # 24 Herm mey Oral Tablet 00 tab, 0 Refill(s) Ketorolac 2014-0 No 30 mg, Memori a 04-04 Route: l 21:08: IVP, Drug [place] form: INJ, ONCE, Dosing Weight 84.091, kg, Priority: STAT, Start date: 04/04/14 15:08:00, Stop date: 04/04/14 15:08:00 Ketorolac 2014-0 No 30 mg, Memori a 04-04 Route: l 21:08: IVP, Drug [place] form: INJ, ONCE, Dosing Weight 84.091, kg, Priority: STAT, Start date: 04/04/14 15:08:00, Stop date: 04/04/14 15:08:00 Morphine 2014-0 No 4 mg, Memoria 04-04 Route: l 20:26: IVP, Drug [place] form: INJ, ONCE, Dosing Weight 84.091, kg, Priority: STAT, Start date: 04/04/14 14:26:00, Stop date: 04/04/14 14:26:00 Morphine 2015-0 No 4 mg, Memoria 2-26 Route: l 20:26: IVP, Drug [place] 00 form: INJ, ONCE, Dosing Weight 84.091, kg, Priority: STAT, Start date: 04/04/14 14:26:00, Stop date: 04/04/14 14:26:00 Morphine 2015-0 No 4 mg, Memoria 2-26 Route: l 18:22: IVP, Drug [place] 00 form: INJ, ONCE, Dosing Weight 84.091, kg, Priority: STAT, Start date: 04/04/14 12:22:00, Stop date: 04/04/14 12:22:00 normal 2015-0 No 1,000 mL, Memori a saline 0.9% 2- Rate: l IV 1000 mL 18:22: 1,000 Geo n 00 ml/hr, Infuse over: 1 hr, Route: IV, Dosing Weight 84.091 kg, Total Volume: 1,000, Priority: STAT, Start date: 04/04/14 12:22:00, Duration: 1 doses or times, Stop date: 04/04/14 13:21:00 Morphine 2015-0 No 4 mg, Memoria 2-26 Route: l 18:22: IVP, Drug [place] 00 form: INJ, ONCE, Dosing Weight 84.091, kg, Priority: STAT, Start date: 04/04/14 12:22:00, Stop date: 04/04/14 12:22:00 normal 2015-0 No 1,000 mL, Memori a saline 0.9% 2-26 Rate: l IV 1000 mL 18:22: 1,000 Geo n 00 ml/hr, Infuse over: 1 hr, Route: IV, Dosing Weight 84.091 kg, Total Volume: 1,000, Priority: STAT, Start date: 04/04/14 12:22:00, Duration: 1 doses or times, Stop date: 04/04/14 13:21:00 Zofran 2015-0 No 4 mg, Memoria 2-26 Route: l 18:21: IVP, Drug [place] 00 form: INJ, ONCE, Dosing Weight 84.091, kg, Priority: STAT, Start date: 04/04/14 12:21:00, Stop date: 04/04/14 12:21:00 Osvaldo 2015-0 No 4 mg, Memoria 2 Route: l 18:21: IVP, Drug [place] form: INJ, ONCE, Dosing Weight 84.091, kg, Priority: STAT, Start date: 04/04/14 12:21:00, Stop date: 04/04/14 12:21:00 Immunizations Ordered Immunization Filled Immunization Date Status Commen ts Source Name Name Influenza, 2020-01-15 Completed [facility] Quadrivalent 00:00:00 Influenza, 2020-01-15 Completed [facility] Quadrivalent 00:00:00 [place] Influenza, 2018-11-21 Completed [facility] Quadrivalent 00:00:00 Tdap 2018-11-21 Completed [facility] 00:00:00 Influenza, 2018-11-21 Completed [facility] Quadrivalent 00:00:00 [place] Tdap 2018-11-21 Completed [facility] 00:00:00 [place] pneumococcal 2014-08-28 Completed [facility] 23-valent vaccine 22:38:00 [place] pneumococcal 2014-08-28 Completed [facility] 23-valent vaccine 22:38:00 [place] Pneumococcal 2014-08-28 Completed [facility] Polysaccharide 00:00:00 Pneumococcal 2014-08-28 Completed [facility] Polysaccharide 00:00:00 [place] Tdap 2008-03-29 Completed [facility]00 [facility] Tdap 2008-03-29 Completed MD [facility] 00:00:00 Tdap 2008-03-29 Completed [facility]:00 [facility] Tdap 2008-03-29 Completed [facility] 00:00:00 [place] Vital Signs Vital Name Observation Time Observation Value Comments Source Body height 2020-10-06 17:55:00 178 cm MD Wilberto blakely Body weight 2020-10-06 17:55:00 103.2 kg MD Wilberto blakely BMI 2020-10-06 17:55:00 32.57 kg/m2 MD Wilberto blakely Systolic blood 2020-09-22 17:32:17 120 mm[Hg] pressure Diastolic blood 2020-09-22 17:32:17 76 mm[Hg] MD Yoder derson pressure Heart rate 2020-09-22 17:32:17 72 /min MD Wilberto blakely Body temperature 2020-09-22 17:32:17 37.11 Rosette MD A nderson Respiratory rate 2020-09-22 17:32:17 18 /min MD Alyse tobias Oxygen saturation in 2020-09-22 17:32:17 97 /min MD [facility] Arterial blood by Pulse oximetry Height 2020-09-22 17:32:17 178 cm [facility] [place] Weight 2020-09-22 17:32:17 [facility] [place] Systolic (mm Hg) 2020-08-15 16:16:00 Rafael rial [place] Diastolic (mm Hg) 2020-08-15 16:16:00 Mem o[facility] [place] Heart Rate 2020-08-15 16:16:00 [facility] [place] Respitory Rate 2020-08-15 16:16:00 Memori al [place] Temperature Oral (F) 2020-08-15 16:16:00 98.2 F [facility] [place] Height 2020-08-15 16:16:00 177.8 cm [facility] [place] Weight 2020-08-15 16:16:00 [facility] [place] BMI Calculated 2020-08-15 16:16:00 Memori al [place] Systolic (mm Hg) 2020-08-01 18:16:00 Rafael rial [place] Diastolic (mm Hg) 2020-08-01 18:16:00 Mem orial [place] Heart Rate 2020-08-01 18:16:00 [facility] [place] Respitory Rate 2020-08-01 18:16:00 Memori al [place] Temperature Oral (F) 2020-08-01 18:16:00 98.7 F [facility] [place] Height 2020-08-01 18:16:00 177.8 cm [facility] [place] Weight 2020-08-01 18:16:00 [facility] [place] BMI Calculated 2020-08-01 18:16:00 Memori al [place] Systolic blood 2020-04-07 20:36:00 109 mm[Hg] [facility] pressure Diastolic blood 2020-04-07 20:36:00 78 mm[Hg] [facility] pressure Heart rate 2020-04-07 20:36:00 77 /min [facility] Body height 2020-04-07 20:36:[address] [facility] Body weight 2020-04-07 20:36:[address] [facility] BMI 2020-04-07 20:36:00 29.29 kg/m2 [facility] Body temperature 2020-03-28 21:12:00 36.67 [place] Respiratory rate 2020-03-28 21:12:00 17 /min [facility] Oxygen saturation in 2020-03-28 21:12:00 99 /min [facility] Arterial blood by Pulse oximetry Temperature Oral (F) 2019-04-12 08:04:00 97.9 F [facility] Heart Rate 2019-04-12 08:04:00 [facility] Respitory Rate 2019-04-12 08:04:00 [facility] Systolic (mm Hg) 2019-04-12 08:04:00 [facility] [place] Diastolic (mm Hg) 2019-04-12 08:04:00 [facility] [place] Temperature Oral (F) 2019-04-12 03:44:00 98.0 F [facility] Heart Rate 2019-04-12 03:44:00 [facility] Respitory Rate 2019-04-12 03:44:00 [facility] Systolic (mm Hg) 2019-04-12 03:44:00 [facility] [place] Diastolic (mm Hg) 2019-04-12 03:44:00 [facility] Temperature Oral (F) 2019-04-11 23:28:00 98.8 F [facility] Heart Rate 2019-04-11 23:28:00 [facility] Respitory Rate 2019-04-11 23:28:00 [facility] Systolic (mm Hg) 2019-04-11 23:28:00 [facility] Diastolic (mm Hg) 2019-04-11 23:28:00 [facility] Height 2019-04-11 19:10:00 180.34 cm [facility] BMI Calculated 2019-04-11 19:10:00 [facility] Weight 2019-04-11 19:10:00 [facility] Systolic (mm Hg) 2018-09-12 20:45:00 [facility] Diastolic (mm Hg) 2018-09-12 20:45:00 [facility] Respitory Rate 2018-09-12 20:45:00 [facility] Systolic (mm Hg) 2018-09-12 19:45:00 [facility] Diastolic (mm Hg) 2018-09-12 19:45:00 [facility] Respitory Rate 2018-09-12 19:45:00 [facility] Systolic (mm Hg) 2018-09-12 18:45:00 [facility] Diastolic (mm Hg) 2018-09-12 18:45:00 [facility] Respitory Rate 2018-09-12 18:45:00 [facility] BMI Calculated 2018-09-12 12:20:00 [facility] Weight 2018-09-12 12:20:00 [facility] Height 2018-09-12 12:20:00 180.34 cm [facility] Height 2018-05-19 21:13:00 180.34 cm [facility] BMI Calculated 2018-05-19 21:13:00 [facility] Weight 2018-05-19 21:13:00 [facility] Systolic (mm Hg) 2018-05-19 21:13:00 [facility] Diastolic (mm Hg) 2018-05-19 21:13:00 [facility] Heart Rate 2018-05-19 21:13:00 [facility] Temperature Oral (F) 2018-05-19 21:13:00 98.6 F [facility] Respitory Rate 2018-04-05 17:00:00 [facility] Systolic (mm Hg) 2018-04-05 16:00:00 [facility] Diastolic (mm Hg) 2018-04-05 16:00:00 [facility] Respitory Rate 2018-04-05 16:00:00 [facility] Systolic (mm Hg) 2018-04-05 15:00:00 [facility] Diastolic (mm Hg) 2018-04-05 15:00:00 [facility] Respitory Rate 2018-04-05 15:00:00 [facility] Systolic (mm Hg) 2018-04-05 14:00:00 [facility] Diastolic (mm Hg) 2018-04-05 14:00:00 [facility] BMI Calculated 2018-04-04 19:56:00 [facility] Height 2018-04-04 19:56:00 180.34 cm [facility] Weight 2018-04-04 19:56:00 [facility] Heart Rate 2018-04-04 12:42:00 [facility] Weight 2018-04-04 12:32:00 [facility] BMI Calculated 2018-04-04 12:32:00 [facility] Height 2018-04-04 12:32:00 180.34 cm [facility] BMI Calculated 2018-03-28 12:54:00 [facility] Weight 2018-03-28 12:54:00 [facility] Height 2018-03-28 12:54:00 180.34 cm [facility] Systolic (mm Hg) 2018-03-28 12:54:00 [facility] Diastolic (mm Hg) 2018-03-28 12:54:00 [facility] Heart Rate 2018-03-28 12:54:00 [facility] Respitory Rate 2018-03-28 12:54:00 [facility] Height 2018-03-27 19:39:00 180.34 cm [facility] Weight 2018-03-27 19:39:00 [facility] BMI Calculated 2018-03-27 19:39:00 [facility] Heart Rate 2018-03-27 19:39:00 [facility] Temperature Oral (F) 2018-03-27 19:39:00 98.3 F [facility] Systolic (mm Hg) 2018-03-27 19:39:00 [facility] Diastolic (mm Hg) 2018-03-27 19:39:00 [facility] BMI Calculated 2018-03-24 14:20:00 [facility] Weight 2018-03-24 14:20:00 [facility] Height 2018-03-24 14:20:00 180.34 cm [facility] Systolic (mm Hg) 2018-03-24 14:19:00 [facility] Diastolic (mm Hg) 2018-03-24 14:19:00 [facility] Systolic (mm Hg) 2018-03-10 15:14:00 [facility] Diastolic (mm Hg) 2018-03-10 15:14:00 [facility] Heart Rate 2018-03-10 15:14:00 [facility] Temperature Oral (F) 2018-03-10 15:14:00 98.1 F [facility] Height 2018-03-10 15:14:00 180.34 cm [facility] Weight 2018-03-10 15:14:00 [facility] BMI Calculated 2018-03-10 15:14:00 [facility] Temperature Oral (F) 2018-03-09 21:16:00 98.5 F [facility] Heart Rate 2018-03-09 21:16:00 [facility] Respitory Rate 2018-03-09 21:16:00 [facility] Systolic (mm Hg) 2018-03-09 21:16:00 [facility] Diastolic (mm Hg) 2018-03-09 21:16:00 [facility] Temperature Oral (F) 2018-03-09 17:05:00 98.7 F [facility] Heart Rate 2018-03-09 17:05:00 [facility] Respitory Rate 2018-03-09 17:05:00 [facility] Systolic (mm Hg) 2018-03-09 17:05:00 [facility] Diastolic (mm Hg) 2018-03-09 17:05:00 [facility] Temperature Oral (F) 2018-03-09 13:29:00 98.4 F [facility] Heart Rate 2018-03-09 13:29:00 [facility] Respitory Rate 2018-03-09 13:29:00 [facility] Systolic (mm Hg) 2018-03-09 13:29:00 [facility] Diastolic (mm Hg) 2018-03-09 13:29:00 [facility] Height 2018-03-08 04:19:00 180.34 cm [facility] Weight 2018-03-08 04:19:00 [facility] BMI Calculated 2018-03-08 04:19:00 [facility] Weight 2018-03-07 20:19:00 [facility] Respitory Rate 2018-03-05 23:00:00 [facility] Systolic (mm Hg) 2018-03-05 23:00:00 [facility] Diastolic (mm Hg) 2018-03-05 23:00:00 [facility] Temperature Oral (F) 2018-03-05 23:00:00 97.9 F [facility] Respitory Rate 2018-03-05 21:00:00 [facility] Systolic (mm Hg) 2018-03-05 21:00:00 [facility] Diastolic (mm Hg) 2018-03-05 21:00:00 [facility] Heart Rate 2018-03-05 19:02:00 [facility] Respitory Rate 2018-03-05 19:02:00 [facility] Height 2018-03-05 19:02:00 180.34 cm [facility] BMI Calculated 2018-03-05 19:02:00 [facility] Weight 2018-03-05 19:02:00 [facility] Temperature Oral (F) 2018-03-05 19:02:00 98.4 F [facility] Systolic (mm Hg) 2018-03-05 19:02:00 [facility] Diastolic (mm Hg) 2018-03-05 19:02:00 [facility] Height 2018-02-28 16:46:00 180.34 cm [facility] Weight 2018-02-28 16:46:00 [facility] BMI Calculated 2018-02-28 16:46:00 [facility] Systolic (mm Hg) 2018-02-28 16:46:00 [facility] Diastolic (mm Hg) 2018-02-28 16:46:00 [facility] Temperature Oral (F) 2018-02-28 16:46:00 98.2 F [facility] Heart Rate 2018-02-28 16:46:00 [facility] Respitory Rate 2018-02-28 07:22:00 [facility] Temperature Oral (F) 2018-02-28 07:22:00 98 F [facility] Systolic (mm Hg) 2018-02-28 07:22:00 [facility] Diastolic (mm Hg) 2018-02-28 07:22:00 [facility] Temperature Oral (F) 2018-02-28 06:48:00 98.3 F [facility] Systolic (mm Hg) 2018-02-28 06:48:00 [facility] Diastolic (mm Hg) 2018-02-28 06:48:00 [facility] Respitory Rate 2018-02-28 06:48:00 [facility] Systolic (mm Hg) 2018-02-28 05:19:00 [facility] Diastolic (mm Hg) 2018-02-28 05:19:00 [facility] Respitory Rate 2018-02-28 05:19:00 [facility] Heart Rate 2018-02-28 01:00:00 [facility] Heart Rate 2018-02-27 23:41:00 [facility] Weight 2018-02-27 20:49:00 [facility] BMI Calculated 2018-02-27 20:49:00 [facility] Heart Rate 2018-02-27 20:49:00 [facility] Temperature Oral (F) 2018-02-27 20:49:00 98.6 F [facility] Height 2018-02-27 20:49:00 180.34 cm [facility] Weight 2017-11-30 15:35:00 [facility] Height 2017-11-30 15:35:00 180.34 cm [facility] BMI Calculated 2017-11-30 15:35:00 [facility] Systolic (mm Hg) 2017-11-30 15:35:00 [facility] Diastolic (mm Hg) 2017-11-30 15:35:00 [facility] Temperature Oral (F) 2017-11-30 15:35:00 98.2 F [facility] Heart Rate 2017-11-30 15:35:00 [facility] Weight 2017-09-23 15:06:00 [facility] Height 2017-09-23 15:06:00 180.34 cm [facility] BMI Calculated 2017-09-23 15:06:00 [facility] Systolic (mm Hg) 2017-09-23 15:06:00 [facility] Diastolic (mm Hg) 2017-09-23 15:06:00 [facility] Heart Rate 2017-09-23 15:06:00 [facility] Temperature Oral (F) 2017-09-23 15:06:00 98.1 F [facility] Systolic (mm Hg) 2017-08-12 00:38:00 [facility] Diastolic (mm Hg) 2017-08-12 00:38:00 [facility] Heart Rate 2017-08-12 00:38:00 [facility] Respitory Rate 2017-08-12 00:38:00 [facility] Temperature Oral (F) 2017-08-12 00:38:00 97.9 F [facility] Systolic (mm Hg) 2017-08-11 23:19:00 [facility] Diastolic (mm Hg) 2017-08-11 23:19:00 [facility] Systolic (mm Hg) 2017-08-11 21:17:00 [facility] Diastolic (mm Hg) 2017-08-11 21:17:00 [facility] Respitory Rate 2017-08-11 21:17:00 [facility] Temperature Oral (F) 2017-08-11 21:17:00 98.0 F [facility] Heart Rate 2017-08-11 21:17:00 [facility] Temperature Oral (F) 2017-08-11 17:25:00 98.2 F [facility] Respitory Rate 2017-08-11 17:25:00 [facility] Heart Rate 2017-08-11 17:25:00 [facility] BMI Calculated 2017-08-09 22:50:00 [facility] Height 2017-08-09 22:50:00 180.34 cm [facility] Weight 2017-08-09 22:50:00 [facility] Weight 2017-08-09 16:26:00 [facility] Height 2017-08-09 16:26:00 180.34 cm [facility] BMI Calculated 2017-08-09 16:26:00 [facility] BMI Calculated 2017-08-09 15:03:00 [facility] Weight 2017-08-09 15:03:00 [facility] Height 2017-08-09 15:03:00 180.34 cm [facility] Heart Rate 2017-08-09 15:03:00 [facility] Temperature Oral (F) 2017-08-09 15:03:00 97.9 F [facility] Systolic (mm Hg) 2017-08-09 15:03:00 [facility] Diastolic (mm Hg) 2017-08-09 15:03:00 [facility] Systolic (mm Hg) 2017-08-08 13:37:00 [facility] Diastolic (mm Hg) 2017-08-08 13:37:00 [facility] Heart Rate 2017-08-08 13:37:00 [facility] Temperature Oral (F) 2017-08-08 13:37:00 97.7 F [facility] Heart Rate 2017-08-08 04:51:00 [facility] Respitory Rate 2017-08-08 04:51:00 [facility] Systolic (mm Hg) 2017-08-08 04:51:00 [facility] Diastolic (mm Hg) 2017-08-08 04:51:00 [facility] Temperature Oral (F) 2017-08-08 04:51:00 98.4 F [facility] Respitory Rate 2017-08-07 20:35:00 [facility] Heart Rate 2017-08-07 20:35:00 [facility] Systolic (mm Hg) 2017-08-07 20:35:00 [facility] Diastolic (mm Hg) 2017-08-07 20:35:00 [facility] Temperature Oral (F) 2017-08-07 20:35:00 98.0 F [facility] Respitory Rate 2017-08-07 17:15:00 [facility] Height 2017-08-07 11:32:00 180.34 cm [facility] Weight 2017-08-07 11:32:00 [facility] BMI Calculated 2017-08-07 11:32:00 [facility] Heart Rate 2017-08-07 10:47:00 [facility] Systolic (mm Hg) 2017-08-07 10:47:00 [facility] Diastolic (mm Hg) 2017-08-07 10:47:00 [facility] Temperature Oral (F) 2017-08-07 10:47:00 98.3 F [facility] Respitory Rate 2017-08-07 10:47:00 [facility] Heart Rate 2017-08-07 00:46:00 [facility] Temperature Oral (F) 2017-08-07 00:46:00 98.3 F [facility] Systolic (mm Hg) 2017-08-07 00:46:00 [facility] Diastolic (mm Hg) 2017-08-07 00:46:00 [facility] Height 2017-08-06 19:12:00 180.34 cm [facility] Weight 2017-08-06 19:12:00 [facility] Systolic (mm Hg) 2017-08-06 19:12:00 [facility] Diastolic (mm Hg) 2017-08-06 19:12:00 [facility] Respitory Rate 2017-08-06 19:12:00 [facility] Temperature Oral (F) 2017-08-06 19:12:00 98.4 F [facility] BMI Calculated 2017-08-06 19:12:00 [facility] Heart Rate 2017-08-06 19:12:00 [facility] BMI Calculated 2017-06-17 15:05:00 [facility] Weight 2017-06-17 15:05:00 [facility] Height 2017-06-17 15:05:00 180.34 cm [facility] Heart Rate 2017-06-17 15:05:00 [facility] Systolic (mm Hg) 2017-06-17 15:05:00 [facility] Diastolic (mm Hg) 2017-06-17 15:05:00 [facility] Temperature Oral (F) 2017-06-17 15:05:00 98.1 F [facility] Systolic (mm Hg) 2015-03-31 20:35:00 [facility] Diastolic (mm Hg) 2015-03-31 20:35:00 [facility] Temperature Oral (F) 2015-03-31 20:35:00 98 F [facility] Respitory Rate 2015-03-31 20:35:00 [facility] Heart Rate 2015-03-31 20:35:00 [facility] Temperature Oral (F) 2015-03-31 17:18:00 98.1 F [facility] Respitory Rate 2015-03-31 17:18:00 [facility] Heart Rate 2015-03-31 17:18:00 [facility] Systolic (mm Hg) 2015-03-31 17:18:00 [facility] Diastolic (mm Hg) 2015-03-31 17:18:00 [facility] Weight 2015-03-31 17:18:00 [facility] BMI Calculated 2015-03-31 17:18:00 [facility] Height 2015-03-31 17:18:00 180.34 cm [facility] Respitory Rate 2014-08-30 17:00:00 [facility] Temperature Oral (F) 2014-08-30 17:00:00 97.9 F [facility] Heart Rate 2014-08-30 17:00:00 [facility] Systolic (mm Hg) 2014-08-30 17:00:00 [facility] Diastolic (mm Hg) 2014-08-30 17:00:00 [facility] Heart Rate 2014-08-30 12:47:00 [facility] Temperature Oral (F) 2014-08-30 12:47:00 97.4 F [facility] Respitory Rate 2014-08-30 12:47:00 [facility] Systolic (mm Hg) 2014-08-30 12:47:00 [facility] Diastolic (mm Hg) 2014-08-30 12:47:00 [facility] Respitory Rate 2014-08-30 09:00:00 [facility] Systolic (mm Hg) 2014-08-30 09:00:00 [facility] Diastolic (mm Hg) 2014-08-30 09:00:00 [facility] Heart Rate 2014-08-30 09:00:00 [facility] Temperature Oral (F) 2014-08-30 09:00:00 97.9 F [facility] Height 2014-08-27 04:00:00 180.34 cm [facility] Weight 2014-08-27 04:00:00 [facility] BMI Calculated 2014-08-27 04:00:00 [facility] Weight 2014-08-26 18:26:00 [facility] Height 2014-08-15 14:43:31 [facility] Weight 2014-08-15 14:43:31 [facility] Temperature Oral (F) 2014-08-15 14:43:31 98.4 F [facility] Heart Rate 2014-08-15 14:43:31 [facility] Systolic (mm Hg) 2014-08-15 14:43:31 [facility] Diastolic (mm Hg) 2014-08-15 14:43:31 [facility] Heart Rate 2014-08-10 12:54:00 [facility] Temperature Oral (F) 2014-08-10 12:54:00 98.2 F [facility] Respitory Rate 2014-08-10 12:54:00 [facility] Systolic (mm Hg) 2014-08-10 12:54:00 [facility] Diastolic (mm Hg) 2014-08-10 12:54:00 [facility] Systolic (mm Hg) 2014-08-10 09:51:00 [facility] Diastolic (mm Hg) 2014-08-10 09:51:00 [facility] Temperature Oral (F) 2014-08-10 09:51:00 98.1 F [facility] Heart Rate 2014-08-10 09:51:00 [facility] Respitory Rate 2014-08-10 09:51:00 [facility] Heart Rate 2014-08-10 04:19:00 [facility] Systolic (mm Hg) 2014-08-10 04:19:00 [facility] Diastolic (mm Hg) 2014-08-10 04:19:00 [facility] Respitory Rate 2014-08-10 04:19:00 [facility] Temperature Oral (F) 2014-08-10 04:19:00 98.2 F [facility] BMI Calculated 2014-08-05 17:30:00 [facility] Weight 2014-08-05 17:30:00 [facility] Height 2014-08-05 17:30:00 180.34 cm [facility] Temperature Oral (F) 2014-04-04 21:54:00 98.0 F [facility] Systolic (mm Hg) 2014-04-04 21:54:00 [facility] Diastolic (mm Hg) 2014-04-04 21:54:00 [facility] Respitory Rate 2014-04-04 21:54:00 [facility] Heart Rate 2014-04-04 21:54:00 [facility] Systolic (mm Hg) 2014-04-04 20:00:00 [facility] Diastolic (mm Hg) 2014-04-04 20:00:00 [facility] Respitory Rate 2014-04-04 20:00:00 [facility] Heart Rate 2014-04-04 20:00:00 [facility] Temperature Oral (F) 2014-04-04 17:50:00 98.4 F [facility] Heart Rate 2014-04-04 17:50:00 [facility] Respitory Rate 2014-04-04 17:50:00 [facility] Systolic (mm Hg) 2014-04-04 17:50:00 [facility] Diastolic (mm Hg) 2014-04-04 17:50:00 [facility] Height 2014-04-04 17:50:00 180.34 cm [facility] Weight 2014-04-04 17:50:00 [facility] BMI Calculated 2014-04-04 17:50:[address] [facility] Height 2011-01-29 14:52:00 180.34 cm [facility] Weight 2011-01-29 14:52:00 [facility] Procedures Procedure Date / Time Performing Clinician Source Performed MRI ABDOMEN W WO CONTRAST 2020-10-06 19:00:04 Rachel Lin MD COMPLETE BLOOD COUNT W/ 2020-10-06 13:29:00 Rachel Lin MD nderson DIFFERENTIAL COMPREHENSIVE METABOLIC 2020-10-06 13:29:00 Rachel Lin MD nderson PANEL MAGNESIUM LEVEL 2020-10-06 13:29:00 Rachel Lin MD PHOSPHORUS LEVEL 2020-10-06 13:29:00 Rachel Lin MD LACTATE DEHYDROGENASE 2020-10-06 13:29:00 Rachel Lin MD And ers URIC ACID 2020-10-06 13:29:00 Rachel Lin MD CHROMOGRANIN A 2020-10-06 13:29:00 Rachel Lin MD GASTRIN LVL 2020-10-06 13:29:00 Rachel Lin MD NEURON SPECIFIC ENOLASE, 2020-10-06 13:29:00 Rachel Lin MD SERUM Results CBC 2020-10-06 13:29:00 Rachel Lin MD MANUAL DIFFERENTIAL 2020-10-06 13:29:00 [facility] GLUCOSE LEVEL 2020-10-06 13:29:00 Rachel Lin MD BLOOD UREA NITROGEN 2020-10-06 13:29:00 [facility] ELECTROLYTE PANEL 2020-10-06 13:29:00 Rachel Lin MD Andsuzyo n SERUM CREATININE 2020-10-06 13:29:00 Rachel Lin MD .GLOMERULAR FILTRATION RATE 2020-10-06 13:29:00 Rachel Lin MD CALCIUM LEVEL TOTAL 2020-10-06 13:29:00 Rachel Lin MD Wilbertorick blakely ALBUMIN LEVEL 2020-10-06 13:29:00 Rachel Lin MD ALKALINE PHOSPHATASE 2020-10-06 13:29:00 Rachel Lin MD Jake rson ALANINE AMINOTRANSFERASE 2020-10-06 13:29:00 Rachel Lin MD ASPARTATE AMINOTRANSFERASE 2020-10-06 13:29:00 Rachel Lin TOTAL PROTEIN 2020-10-06 13:29:00 Rachel Lin MD FRACTIONATED BILIRUBIN 2020-10-06 13:29:00 Rachel Lin MD derson OSI MRI ABDOMEN 2020-08-12 18:42:00 Rachel Lin MD OSI PET CT SKULL TO MID 2020-07-28 19:02:00 Rachel Lin MD nderson THIGH OSI CT ABDOMEN AND PELVIS 2020-05-07 19:02:00 Rachel Lin MD GYNECOLOGIC PAP TEST 2020-04-07 21:48:00 Ami Suarez [facility] (IMAGE-GUIDED), LIQUID-BASED PREPARATION AND HUMAN PAPILLOMAVIRUS (HPV) (APTIMA) WITH REFLEX TO HPV GENOTYPES 16 AND 18,45 URINALYSIS 2020-03-28 20:15:00 Juliana Gonzalez COMPLETE BLD COUNT 2020-03-28 19:05:00 Juliana Gonzalez [facility] W/AUTO DIFF Aaron COMPREHENSIVE METABOLIC 2020-03-28 19:05:00 Juliana Gonzalez [facility] PANEL Aaron AMYLASE LEVEL 2020-03-28 19:05:00 Juliana Gonzalez ESTIMATED GFR 2020-03-28 19:05:[address] ABDOMEN PELVIS WO 2020-03-19 21:49:[facility] 2020-03-19 19:53:00 Gaurav Toney [facility] COMPLETE BLD COUNT 2020-03-19 19:40:00 Gaurav Toney [facility] W/AUTO DIFF COMPREHENSIVE METABOLIC 2020-03-19 19:40:00 Gaurav Toney [facility] PANEL LACTIC ACID, I-STAT 2020-03-19 19:40:[address] [facility] AMYLASE LEVEL 2020-03-19 19:40:[facility] SED[facility]ENT[facility] RATE 2020-03-19 19:40:00 Gaurav Toney [facility] C-REACTIVE PROTEIN 2020-03-19 19:40:00 Gaurav Toney [facility] LIPASE LEVEL 2020-03-19 19:40:[address] [facility] spital ESTIMATED GFR 2020-03-19 19:40:[facility] URINE CULTURE 2020-03-19 18:52:[facility] 2020-03-19 18:52:00 Gaurav Toney spital Selective catheter 2018-09-12 15:43:00 [facility] placement, internal carotid artery, unilateral, with angiography of the ipsilateral intracranial carotid circulation and all associated radiological supervision and interpretation, includes angiography of the extracranial carotid and ce Selective catheter 2018-09-12 15:43:00 [facility] placement, common carotid or innominate artery, unilateral, any approach, with angiography of the ipsilateral extracranial carotid circulation and all associated radiological supervision and interpretation, includes angiography of the c Transcatheter placement of 2018-04-04 13:14:00 Mona Clayton an intravascular stent(s), open or percutaneous, including radiological supervision and interpretation and including angioplasty within the same vessel, when performed; initial vein Injection, anesthetic 2018-03-01 00:44:00 Ariel Lindsay agent; greater occipital nerve Chemodenervation of 2018-01-03 23:34[facility] muscle(s) innervated by facial, trigeminal, cervical spinal and accessory nerves, bilateral (eg, for chronic migraine) Spinal puncture, lumbar, 2017-08-11 16:52:26 Andre orisofia Clayton diagnostic Spinal 2014-07-17 05:00:00 [facility] operation<sup>1</sup> Hysterectomy 2014-02-07 00:00:00 [facility] Cholecystectomy [facility] Thyroidectomy [facility] section [facility] n Appendectomy [facility] Plan of Care Planned Planned Date Details Comments Source Activity Future 1993 COVID-19 Vaccination (1) [code = MD [facility] Scheduled Test 00:00:00 COVID-19 Vaccination (1)] Future COVID-19 VACCINE (1) [code = [facility] Scheduled Test COVID-19 VACCINE (1)] Hosp ital Future Hepatitis C screening (procedure) [facility] Scheduled Test [code = 075606768] Hospita l Future Screening for malignant neoplasm of [facility] Scheduled Test cervix (procedure) [code = Hospital 654386022] Future INFLUENZA VACCINE [code = INFLUENZA [facility] Scheduled Test VACCINE] Hospital Future Upcoming [facility] Scheduled Test EncountersDateTypeSpecialtyCare [place] CdnnCpyehkudtke95/30/202ncillary ProcedureRadiologyIliRachel cullen MD[address] [place] [address] [phone] (Fax)10/09/2020TelemedicineInternal MedicineRachel Lin MD[address] [place], [place] [phone] (Fax)Health MaintenanceDue DateLast DoneCommentsCOVID-19 Vaccination (1)1993 [code = Upcoming EncountersDateTypeSpecialtyCare HvjlTfkxklqfvlx85/30/202[facility] ProcedureRadiologyRachel Lin MD[address] [place], [place] [phone] (Fax)YeyocineInternal Rachel Henderson MD[address] [place], [place] [phone] (Fax)Health MaintenanceDue DateLast DoneCommentsCOVID-19 Vaccination (1)1993] Future COVID-19 Vaccination (1) [code = [facility] Scheduled Test COVID-19 Vaccination (1)] [place] Future COVID-19 VACCINE (1) [code = [facility] Scheduled Test COVID-19 VACCINE (1)] Hosp ital Future Hepatitis C screening (procedure) [facility] Scheduled Test [code = 665729032] Hospita l Future Screening for malignant neoplasm of [facility] Scheduled Test cervix (procedure) [code = Hospital 765605163] Future INFLUENZA VACCINE [code = INFLUENZA [facility] Scheduled Test VACCINE] Hospital Encounters Start End Encounter Admission Attending Care Care Encounter Source Date/Time Date/Time Type Type Clinicians Facility Department ID 2020-08-28 Outpatient [facility] [place] [id number] 12:42:12 PROVIDER Mark o fabiola 2020-06-04 Outpatient [facility] [place] [id number] 11:53:33 PROVIDER Mark o n 2020-10-10 2020-10-10 EXT [facility] OP Thosani, EXT MSRDP [id number] [place] 11:25:25 12:10:25 Flo C LOCATION [id number] H ealth [id number] 2020-10-10 2020-10-10 Outpatient [facility] [facility] 08:42:00 08:42:00 2020-10-06 2020-10-06 Outpatient [facility], [place] [id number] 12:34:33 12:34:33 RACHEL hicks 2020-10-06 2020-10-06 Outpatient [facility], [place] [id number] 08:28:59 08:31:13 RACHEL hicks 2020-10-06 2020-10-06 Travel [facility] [id number] [facility] 00:00:00 00:00:00 [facility] 2020-09-22 2020-09-22 Office nullFlavo Internal [id number] [facility] 17:04:03 20:21:11 Visit r Medicine [facility] 2020-09-22 2020-09-22 Ancillary nullFlavo Image [id number] [facility] 18:55:50 19:00:50 Procedure r Library [facility] 2020-09-22 2020-09-22 Ancillary nullFlavo Image [id number] [facility] 18:51:15 18:56:15 Procedure r Library [facility] 2020-09-22 2020-09-22 Ancillary nullFlavo Image [id number] [facility] 18:38:18 18:43:18 Procedure r Library [facility] 2020-09-22 2020-09-22 NPR nullFlavo MDA PATIENT [id number] [facility] 17:01:24 17:01:35 r ACCESS l [facility] 2020-09-22 2020-09-22 Outpatient EL ILIESCU, MDA MDA [id number] 12:04:03 15:21:11 RACHEL Mark o n 2020-09-22 2020-09-22 Outpatient [facility]IESCU, MDA MDA [id number] 13:55:50 13:55:50 RACHEL Mark o n 2020-09-22 2020-09-22 Outpatient EL [facility]IESCU, MDA MDA [id number] 13:51:15 13:51:15 RACHEL Mark o n 2020-09-22 2020-09-22 Outpatient EL ILIESCU, MDA MDA [id number] 13:38:18 13:38:18 RACHEL Mark o n 2020-09-22 2020-09-22 Outpatient EL MDA MDA [id number] 12:01:24 12:01:35 Mark o n 2020-09-22 2020-09-22 [id number] Memoria 00:00:00 00:00:00 l Forrest 2020-09-19 2020-09-19 Outpatient [facility] 7522 [facility] 12:15:00 12:15:00 2020-09-16 2020-09-17 Outpatient nullFlavo [facility] [id number] Memoria 15:10:00 04:59:59 r Care 17 l Mccormick Forrest 2020-09-04 2020-09-06 Phone nullFlavo Digestive [id number] Memoria 22:33:05 04:59:59 Message r Disease 39 l [place] 2020-08-01 2020-08-31 Recurring nullFlavo Oncology [id number] Memoria 17:46:00 04:59:00 r 00 l Forrest 2020-08-12 2020-08-13 Outpt Diag nullFlavo [facility] [id number] [id number] Memoria 13:41:00 04:59:00 Services r Outpatient 09 l Imaging [place] 2020-08-08 2020-08-09 Outpt Diag nullFlavo [facility] [id number] Memoria 23:16:00 04:59:00 Services r Outpatient 08 l Imaging [place] Veraann 2020-08-01 2020-08-01 Outpatient [facility] 9600 [facility] 12:46:00 12:46:00 2020-07-28 2020-07-29 Outpt Diag nullFlavo [facility] [id number] Memoria 11:13:00 04:59:00 Services r Outpatient 07 l Imaging [facility] 2020-06-03 2020-06-03 Travel [facility] [id number] Memoria 00:00:00 00:00:00 l [place] 2020-05-30 2020-05-30 Refill Peakes, 1.2.840.1 [id number] Methodi 00:00:00 00:00:[address] [place] 3.430.2.7 Hospit a .3.942384 l .8 2020-05-30 2020-05-30 Refill Peakes, 1.2.840.1 [id number] 0482 Methodi 00:00:00 00:00:[address] [place] [address] [place] 3.430.2.7 Hospit a .3.198379 l .8 2020-05-05 2020-05-05 Telephone Leann, 1.2.840.1 [id number] 2099 [id number] Methodi 00:00:00 00:00:[address] 3.430.2.7 Hospit a .3.021813 l .8 2020-05-05 2020-05-05 Telephone Leann, 1.2.840.1 [id number] 2099 [id number] Methodi 00:00:00 00:00:[address] 3.430.2.7 Hospit a .3.600051 l .8 2020-04-30 2020-04-30 Refill Peakes, 1.2.840.1 [id number] 882856 3678 Methodi 00:00:00 00:00:00 [place] [address] [place] 3.430.2.7 Hospit a .3.396832 l .8 2020-04-30 2020-04-30 Refill Leann, 1.2.840.1 [id number] 5905 Methodi 00:00:00 00:00:[address] 3.430.2.7 Hospit a .3.286097 l .8 2020-04-30 2020-04-30 Refill Peakes, 1.2.840.1 [id number] 617517 0276 Methodi 00:00:00 00:00:[address] [place] 3.430.2.7 Hospit a .3.283993 l .8 2020-04-30 2020-04-30 Refill Leann, 1.2.840.1 [id number] 1760 Methodi 00:00:00 00:00:[address] 3.430.2.7 Hospit a .3.563185 l .8 2020-04-07 2020-04-07 Office Peakes, 1.2.840.1 [id number] 8345 Methodi 14:09:04 15:13:52 Visit Ami 35439.1.[address] [place] 3.430.2.7 Hospit a .3.034345 l .8 2020-04-07 2020-04-07 Office Peakes, 1.2.840.1 [id number] 233723 2377 Methodi 14:09:04 15:13:52 Visit [place] [address]52.1.[address] [place] 3.430.2.7 Hospit a .3.996648 l .8 2020-04-07 2020-04-07 Refill Peakes, 1.2.840.1 [id number] [id number] 2933 Methodi 00:00:00 00:00:[address] [place] [address] [place] 3.430.2.7 Hospit a .3.063947 l .8 2020-04-07 2020-04-07 Travel 1.2.840.1 1.2.108.897 2945 956272 Methodi 00:00:00 00:00:[address] 3.430.2.7 0.2.7.3.698 Ho spita .3.574453 084.8 l .8 2020-04-07 2020-04-07 Refill Peakes, 1.2.840.1 [id number] 989953 4925 Methodi 00:00:00 00:00:[address] [place] [address] [place] 3.430.2.7 Hospit a .3.861938 l .8 2020-04-07 2020-04-07 Travel 1.2.840.1 1.2.480.072 1798 620872 Methodi 00:00:00 00:00:[address] 3.430.2.7 0.2.7.3.698 Ho spita .3.464643 084.8 l .8 2020-03-31 2020-03-31 Refill Peakes, 1.2.840.1 [id number] 108739 5436 Methodi 00:00:00 00:00:00 [place] [address] [place] 3.430.2.7 Hospit a .3.584838 l .8 2020-03-31 2020-03-31 Refill Peakes, 1.2.840.1 [id number] 426482 4120 Methodi 00:00:00 00:00:[address] [place] 3.430.2.7 Hospit a .3.020024 l .8 2020-03-30 2020-03-30 Refill Peakes, 1.2.840.1 [id number] 586097 8288 Methodi 00:00:00 00:00:00 [place] [address] [place] 3.430.2.7 Hospit a .3.642839 l .8 2020-03-30 2020-03-30 Refill Erick, 1.2.840.1 [id number] 414877 7593 Methodi 00:00:00 00:00:[address] [place] 3.430.2.7 Hospit a .3.681879 l .8 2020-03-28 2020-03-28 Emergency Gonzalez, 1.2.840.1 [id number] 2099 [id number] Methodi 12:43:00 15:12:[address] Aaron 3.430.2.7 Hospit a .3.342643 l .8 2020-03-28 2020-03-28 Emergency Gonzalez, 1.2.840.1 [id number] 2099 659195 Methodi 12:43:00 15:12:[address] Aaron 3.430.2.7 Hospit a .3.034616 l .8 2020-03-28 2020-03-28 Travel 1.2.840.1 1.2.607.186 8134 007376 Methodi 00:00:00 00:00:[address] 3.430.2.7 0.2.7.3.698 Ho spita .3.264070 084.8 l .8 2020-03-28 2020-03-28 Travel 1.2.840.1 1.2.979.289 7121 896093 Methodi 00:00:00 00:00:[address] 3.430.2.7 0.2.7.3.698 Ho spita .3.676917 084.8 l .8 2020-03-20 2020-03-20 Telephone [facility], 1.2.840.1 [id number] Methodi 00:00:00 00:00:[address] 3.430.2.7 Hospit a .3.196584 l .8 2020-03-20 2020-03-20 [facility] 1.2.840.1 [id number] Methodi 00:00:00 00:00:[address] 3.430.2.7 Hospit a .3.633862 l .8 2020-03-19 2020-03-19 Emergency [facility], 1.2.840.1 [id number] Methodi 12:33:00 16:44:00 Gaurav [address] 3.430.2.7 Hospit a .3.039781 l .8 2020-03-19 2020-03-19 Emergency [facility], 1.2.840.1 [id number] Methodi 12:33:00 16:44:00 [address] 3.430.2.7 Hospit a .3.323950 l .8 2020-03-19 2020-03-19 Travel 1.2.840.1 1.2.309.157 3180 404046 Methodi 00:00:00 00:00:[address] 3.430.2.7 0.2.7.3.698 Ho spita .3.661574 084.8 l .8 2020-03-19 2020-03-19 Telephone Jose, 1.2.840.1 [id number] 870 [id number] Methodi 00:00:00 00:00:[address] 3.430.2.7 Hospit a .3.939085 l .8 2020-03-19 2020-03-19 Travel 1.2.840.1 1.2.845.740 1597 806577 Methodi 00:00:00 00:00:[address] 3.430.2.7 0.2.7.3.698 Ho spita .3.733874 084.8 l .8 2020-03-19 2020-03-19 Telephone Jose, 1.2.840.1 [id number] 113 [id number] Methodi 00:00:00 00:00:[address] 3.430.2.7 Hospit a .3.633482 l .8 2020-03-03 2020-03-03 Travel 1.2.840.1 1.2.095.053 6274 539365 Methodi 00:00:00 00:00:[address] 3.430.2.7 0.2.7.3.698 Ho spita .3.966249 084.8 l .8 2020-03-03 2020-03-03 Travel 1.2.840.1 1.2.044.049 1922 233479 Methodi 00:00:00 00:00:[address] 3.430.2.7 0.2.7.3.698 Ho spita .3.340697 084.8 l .8 2019-06-13 2019-06-13 Telephone Yessi [facility] 1.2.814.232 8307 7544 00:00:00 00:00:00 [facility] 350.1.13.10 [place] 4.2.7.2.686 [facility] 163.5947837 nal [address] 2019-04-11 2019-04-12 Emergency nullFlavo [facility] [id number] Memoria 18:15:02 08:06:00 makenna Clayton 20 [facility] 2019-04-11 2019-04-11 [facility] 12:15:00 12:15:00 2018-09-12 2018-09-12 Bedded nullFlavo [facility] [id number] Memoria 11:29:00 20:45:00 Outpatient makenna Clayton 19 [facility] 2018-09-12 2018-09-12 Outpatient MHIE MHIE [id number] Memoria 08:30:00 08:30:00 16 [facility] 2018-09-12 2018-09-12 Outpatient [facility] 7519 [facility] 06:29:00 06:29:00 2018-09-07 2018-09-09 Phone nullFlavo MNA [id number] Memoria 19:09:11 04:59:59 Message r Neurosurger 38 l y [facility] 2018-09-04 2018-09-06 Phone nullFlavo MNA [id number] Memoria 15:29:00 04:59:59 Message r Neurosurger 37 l y [facility] 2018-05-19 2018-05-20 Outpatient nullFlavo OHA [id number] Memoria 16:45:00 04:59:59 r Neurosurger 15 l y [facility] 2018-05-12 2018-05-13 Outpt Diag nullFlavo [facility] [id number] [id number] Memoria 15:32:00 04:59:00 Services r Outpatient 05 l Imaging [facility] 2018-04-25 2018-04-27 Phone nullFlavo MNA [id number] Memoria 15:05:00 04:59:59 Message r Neurosurger 36 l y [facility] 2018-04-21 2018-04-23 Phone nullFlavo MNA [id number] Memoria 13:19:00 04:59:59 Message r Neurosurger 35 l y [facility] 2018-04-07 2018-04-09 Phone nullFlavo MNA [id number] Memoria 19:40:00 05:59:59 Message r Neurosurger 34 l y [facility] 2018-04-04 2018-04-05 Bedded nullFlavo [facility] [id number] Memoria 15:57:00 17:27:00 Outpatient [facility] 14 [facility] 2018-04-04 2018-04-04 Outpatient MHIE IE [id number] Memoria 08:30:00 08:30:00 13 [facility] 2018-03-30 2018-04-01 Phone nullFlavo MNA [id number] Memoria 17:50:00 05:59:59 Message r Neurosurger 33 l y [facility] 2018-03-28 2018-03-30 Phone nullFlavo MNA [id number] Memoria 22:19:00 05:59:59 Message r Neurosurger 32 l y [facility] 2018-03-28 2018-03-29 Day nullFlavo [facility] [id number] Memoria 11:40:00 05:59:00 Surgery r Trin[place] 12 l [facility] 2018-03-28 2018-03-28 Ambulatory nullFlavo [facility] Spine [id number] Memoria 21:30:00 21:30:00 Pre-Reg r Clinic [facility] 11 [facility] 2018-03-27 2018-03-28 Outpatient nullFlavo [facility] Sp[facility] [id number] Memoria 19:30:00 05:59:59 r Clinic [facility] 14 [facility] 2018-03-17 2018-03-19 Phone nullFlavo MNA [id number] Memoria 16:17:00 05:59:59 Message r Neurosurger 31 l y [facility] 2018-03-16 2018-03-18 Phone nullFlavo MNA Spine [id number] Memoria 21:34:00 05:59:59 Message r Clinic [facility] 30 [facility] 2018-03-14 2018-03-16 Phone nullFlavo MNA [id number] Memoria 18:39:00 05:59:59 Message r Neurosurger 29 l y [facility] 2018-03-10 2018-03-11 Outpatient nullFlavo MNA [id number] Memoria 15:15:00 05:59:59 r Neurosurger 12 l y [facility] 2018-03-08 2018-03-10 Phone nullFlavo MNA [id number] Memoria 21:18:00 05:59:59 Message r Neurosurger 28 l y [facility] 2018-03-07 2018-03-09 Observatio nullFlavo [facility] [id number] Memoria 20:03:00 22:35:00 n r [place] 11 [facility] 2018-03-07 2018-03-09 Phone nullFlavo MNA Spine [id number] Memoria 21:11:00 05:59:59 Message r Clinic [facility] 27 [facility] 2018-03-07 2018-03-09 Phone nullFlavo MNA Spine [id number] Memoria 18:44:00 05:59:59 Message r Clinic [facility] 26 [facility] 2018-03-07 2018-03-09 Phone nullFlavo MNA Spine [id number] Memoria 13:54:00 05:59:59 Message r Clinic [facility] 25 [facility] 2018-03-06 2018-03-08 Phone nullFlavo MNA Spine [id number] Memoria 23:17:00 05:59:59 Message r Clinic [facility] 23 [facility] 2018-03-06 2018-03-08 Phone nullFlavo MNA Spine [id number] Memoria 23:17:00 05:59:59 Message r Clinic [facility] 24 [facility] 2018-03-05 2018-03-05 Emergency nullFlavo [facility] [id number] Memoria 18:59:00 23:49:00 r [place] 10 [facility] 2018-03-02 2018-03-04 Phone nullFlavo MNA [id number] Memoria 16:45:00 05:59:59 Message r Neurosurger 22 [facility] 2018-03-02 2018-03-04 Phone nullFlavo MNA Spine [id number] Memoria 15:34:00 05:59:59 Message r Clinic [facility] 21 [facility] 2018-02-28 2018-03-01 Outpatient nullFlavo [facility] Sp[facility] [id number] Memoria 16:30:00 05:59:59 r Clinic [facility] 10 [facility] 2018-02-27 2018-03-01 Phone nullFlavo MNA Spine [id number] Memoria 18:47:00 05:59:59 Message r Clinic [facility] 20 [facility] 2018-02-27 2018-03-01 Phone nullFlavo MNA Spine [id number] Memoria 14:30:00 05:59:59 Message r Clinic [facility] 19 [facility] 2018-02-27 2018-02-28 Emergency nullFlavo [facility] [id number] Memoria 20:36:00 07:52:00 r [place] 09 [facility] 2018-01-03 2018-01-04 Outpatient nullFlavo [facility] Sp[facility] [id number] Memoria 22:00:00 05:59:59 r Clinic [facility] 09 [facility] 2017-12-01 2017-12-03 Phone nullFlavo MNA Spine [id number] Memoria 16:04:00 04:59:59 Message r Clinic [facility] 18 [facility] 2017-11-30 2017-12-01 Outpatient nullFlavo [facility] [id number] Memoria 15:00:00 04:59:59 r Clinic TM 08 [facility] 2017-09-30 2017-10-01 Outpatient nullFlavo [facility] Sp[facility] [id number] Memoria 20:00:00 04:59:59 r Clinic TM 07 [facility] 2017-09-23 2017-09-24 Outpatient nullFlavo [facility] Spine [id number] Memoria 15:00:00 04:59:59 r Clinic [facility] 06 [facility] 2017-09-22 2017-09-24 Phone nullFlavo MNA Spine [id number] Memoria 15:52:00 04:59:59 Message r Clinic [facility] 17 [facility] 2017-09-22 2017-09-24 Phone nullFlavo MNA Spine [id number] Memoria 15:49:00 04:59:59 Message r Clinic [facility] 16 [facility] 2017-08-15 2017-08-17 Phone nullFlavo MNA Spine [id number] Memoria 15:30:00 04:59:59 Message r Clinic [facility] 15 [facility] 2017-08-16 2017-08-16 Ambulatory nullFlavo [facility] Sp[facility] [id number] Memoria 14:30:00 14:30:00 Pre-Reg r Clinic [facility] 04 [facility] 2017-08-12 2017-08-14 Phone nullFlavo MNA Spine [id number] Memoria 17:22:00 04:59:59 Message r Clinic [facility] 14 [facility] 2017-08-09 2017-08-12 Observatio nullFlavo [facility] [id number] Memoria 16:25:00 01:15:00 n r [place] 08 [facility] 2017-08-09 2017-08-10 Outpatient nullFlavo [facility] Spine [id number] Memoria 14:50:00 04:59:59 r [employer] 05 [facility] 2017-08-08 2017-08-10 Phone nullFlavo MNA [id number] Memoria 17:13:00 04:59:59 Message r Neurosurger 13 [facility] 2017-08-08 2017-08-10 Phone nullFlavo MNA Spine [id number] Memoria 16:40:00 04:59:59 Message r Clinic [facility] 12 [facility] 2017-08-07 2017-08-08 Observatio nullFlavo [facility] [id number] Memoria 13:25:00 20:30:00 n r [place] 82 l [facility] 2017-08-06 2017-08-07 Emergency nullFlavo [facility] [id number] Memoria 18:26:00 10:54:00 r Forrest 00 l [facility] 2017-08-05 2017-08-07 Phone nullFlavo MNA Spine [id number] Memoria 20:43:00 04:59:59 Message r Clinic TM 11 [facility] 2017-08-05 2017-08-07 Phone nullFlavo MNA [id number] Memoria 20:42:00 04:59:59 Message r Neurosurger 10 l y [facility] 2017-08-03 2017-08-05 Phone nullFlavo MNA Spine [id number] Memoria 17:11:00 04:59:59 Message r Clinic TM 09 [facility] 2017-08-01 2017-08-03 Phone nullFlavo MNA Spine [id number] Memoria 15:30:00 04:59:59 Message r Clinic TM 08 [facility] 2017-07-21 2017-07-23 Phone nullFlavo MNA Spine [id number] Memoria 21:02:00 04:59:59 Message r Clinic TM 07 [facility] 2017-06-22 2017-06-24 Phone nullFlavo MNA Spine [id number] Memoria 19:40:00 04:59:59 Message r Clinic [facility] 06 [facility] 2017-06-22 2017-06-24 Phone nullFlavo MNA Spine [id number] Memoria 16:13:00 04:59:59 Message r Clinic TM 05 [facility] 2017-06-17 2017-06-18 Outpatient nullFlavo [facility] Spine [id number] Memoria 15:00:00 04:59:59 r Clinic [facility] 03 [facility] 2017-06-08 2017-06-10 Phone nullFlavo MNA [id number] Memoria 14:10:00 04:59:59 Message r Neurosurger 04 l y [facility] 2016-04-16 2016-04-17 Outpt Diag nullFlavo [facility] [id number] Memoria 20:08:00 05:59:00 Services r Outpatient 03 l Imaging [facility] 2016-04-09 2016-04-09 Outpatient MHIE [facility] [id number] Memoria 08:00:00 08:00:00 02 crystal [place] 2015-03-31 2015-03-31 EC nullFlavo [facility] [id number] Memoria 17:18:00 20:54:00 Emergency r [place] 07 l [facility] 2014-08-26 2014-08-30 Inpatient nullFlavo [facility] [id number] Memoria 18:19:00 17:30:00 r [place] 06 [facility] 2014-08-15 2014-08-15 Office nullFlavo [facility] [id number] Memoria 00:00:00 00:00:00 Visit r [place] [id number] [facility] 350 2014-08-05 2014-08-10 Inpatient nullFlavo [facility] [id number] Memoria 17:27:00 17:50:00 r [place] 05 [facility] 2014-08-07 2014-08-07 Outpatient [facility] [id number] Memoria 12:30:00 12:30:00 00 crystal [place] 2014-04-04 2014-04-04 EC nullFlavo [facility] [id number] Memoria 17:43:00 21:59:00 Emergency r [place] 04 [facility] 2011-01-29 2011-01-29 [facility] [id number] Memoria 08:00:00 08:00:00 r [facility] 03 crystal [place] 2011-01-08 2011-01-08 [facility] [id number] Memoria 13:19:00 16:06:00 r [facility] 01 [facility] Results Test Description Test Time Test Comments Results Result Sour e Comments MRI Abdomen W/WO 2020-09-09 1. Tiny pancreatic MD Galvan contrast 0 head cyst. No 22:59:48 enhancing pancreatic mass is identified.2. Note is made with regards to concern for possible neuroendocrine tumor. Bowel loops are poorly evaluated on MRI. Consider CT enterogram protocol for further evaluation, as clinically warranted. I personally reviewed these image(s) along with the resident's/fellow's interpretations, certify that if a procedure was performed I was physically present, and agree with the final report.Interface, Radiology Results In - 10/06/2020 6:02 PM CDT FULL RESULT:Examination: MRI ABDOMEN W WO CONTRAST on 10/06/2020 2:00 PM.Clinical History: 40-year-old female with no prior history of malignancy who is undergoing workup for possible neuroendocrine tumor with symptoms of diarrhea and skin flushing.Indication: 5 mm pancreatic head lesion.Comparison: MRI abdomen 08/12/2020 from outside hospital, CT abdomen/pelvis 05/07/2020 from outside hospital, PET/CT 07/28/2020 from outside hospitalTechnique: MRI of the abdomen with and without venous contrast was performed per departmental protocol. Findings: Mild hepatic steatosis is present . No focal hepatic lesion is identified. Borderline splenomegaly is noted with a craniocaudal length of 12 cm.The gallbladder is surgically absent. The biliary tree is normal in caliber. The adrenal glands and bilateral kidneys are unremarkable.No enhancing pancreatic parenchymal lesion is identified. There is a tiny 4 mm T2 hyperintense, T1 hypointense, nonenhancing tiny pancreatic head cyst (series 6, image 39). No definite communication with the main pancreatic duct is identified on this exam and review of prior MRCP images. The pancreatic duct is normal in caliber.No lymphadenopathy is identified. The abdominal aorta and inferior vena cava demonstrate normal course and contour.No suspicious osseous lesions are identified.A small fat-containing umbilical hernia is noted.IMPRESSION:1. Tiny pancreatic head cyst. No enhancing pancreatic mass is identified.2. Note is made with regards to concern for possible neuroendocrine tumor. Bowel loops are poorly evaluated on MRI. Consider CT enterogram protocol for further evaluation, as clinically warranted.I personally reviewed these image(s) along with the resident's/fellow's interpretations, certify that if a procedure was performed I was physically present, and agree with the final report. Differential 2020-09-09 54.2 [facility] 0 [place] 13:45:02 Differential 2020-09-09 37.6 [facility] 0 [place] 13:45:02 Differential 2020-09-09 5.3 [facility] 0 [place] 13:45:02 Differential 2020-09-09 2.4 [facility] 0 [place] 13:45:02 Differential 2020-09-09 0.5 [facility] 0 [place] 13:45:02 Differential 2020-09-09 0.0 [facility] 0 [place] 13:45:02 Differential 2020-09-09 3.19 [facility] 0 [place] 13:45:02 Differential 2020-09-09 2.21 [facility] 0 [place] 13:45:02 Differential 2020-09-09 0.31 [facility] 0 [place] 13:45:02 Differential 2020-09-09 0.14 [facility] 0 [place] 13:45:02 Differential 2020-09-09 0.03 [facility] 0 [place] 13:45:02 Differential 2020-09-09 0.00 [facility] 0 [place] 13:45:02 .CBC 2020-09-09 5.9 [facility] 0 [place] 13:44:53 .CBC 2020-09-09 4.29 [facility] 0 [place] 13:44:53 .CBC 2020-09-09 12.6 [facility] 0 [place] 13:44:53 .[facility] 2020-09-09 39.5 [facility] 0 [place] 13:44:53 .[facility] 2020-09-09 92 [facility] 0 [place] 13:44:53 .CBC 2020-10-06 13:44:53 Test Item Value Reference Range Interpretation Comme nts MCH (test code = MCH) 29.4 pg 27.0-31.0 [facility] [place].[id number] 13:44:5331.9[facility] [place].[id number] 13:44:5345.1[facility] [place].[id number] 13:44:5313.2[facility] [place].[facility] 2020-10-06 13:44:68355Gnnlssuz [place].[id number] 13:44:5310.5[facility] PET CT Skull to Mid [id number] 19:03:12Study acquired at another institution. For comparison only. No [facility] originated interpretation requested or available.MD Harley CT Abdomen and [id number] 19:02:37 Study acquired at another institution. For comparison only. No [facility] originated interpretationrequested or available.MD Harley MRI ABDOMEN 2020-09-22 18:42:19Study acquired at another institution. For comparison only. No [facility] originated interpretationrequested or available.MD AndersonCHEM [id number] 19:08:32307Tdspmhpd HermannCHEM [id number] 19:08:77219 [facility] HermannCHEM [id number] 17:54:1987[facility] HermannCHEM PANEL 2020-08-01 17:54:1910[facility] HermannCHEM [id number] 17:54:190.74[facility] HermannCHEM [id number] 17:54:29602Tmvkqzux HermannCHEM [id number] 17:54:194.1[facility] HermannCHEM [id number] 17:54:19247Gemclruz HermannCHEM [id number] 17:54:1930[facility] HermannCHEM [id number] 17:54:198.6 [facility] HermannCHEM [id number] 17:54:197.5[facility] HermannCHEM PANEL 2020-08-01 17:54:193.6[facility] HermannCHEM [id number] 17:54:1917[facility] HermannCHEM [id number] 17:54:1912[facility] HermannCHEM [id number] 17:54:1991[facility]annCHEM FJTUN5497-48-50 17:54:190.2[facility]annCHEM DAXSC9382-54-72 17:54:1910.[facility]annCHEM ESVNG9156-83-50 17:54:19 Test Item Value Reference Range Interpretation Comments B/C Ratio (test code = B/C Ratio) 14 08-01 [facility] [id number] 17:54:193.9[facility]annCHEM PANEL 2020-08-01 17:54:19 Test Item Value Reference Range Interpretation Comments A/G Ratio (test code = A/G Ratio) 0.9 1 0.7-1.6 [facility]annCHEM [id number] 17:54:40048Tkgjmais HermannCHEM PANEL 2020-08-01 17:54:192.0[facility]annCHEM HCVWO4276-90-39 17:54:193.8[facility] VmpslioHRPALXSPWX4651-27-56 17:54:195.8[facility] ObciveqBLUFSJUERA0939-56-70 17:54:194.19[facility] JbqqkdcNQWCVQJFCZ8593-85-08 17:54:1912.2[facility] PGUWTHGHFH4136-12-55 17:54:1937.1[facility] FtxqtdeZPXMTHPJIF9909-75-83 17:54:19 88.8[facility] QzjvwfoRNGMIGROGV0814-42-13 17:54:19 Test Item Value Reference Range Interpretation Comments MCH (test code = MCH) 29.1 pg 27.0-31.0 [facility] IqgxsyvMZXZGXRHLM2212-63-66 17:54:1932.8[facility] HermannHEMATOLOGY 2020-08-01 17:54:1913.8[facility] StpqlyjYFBERXNWYK1218-43-62 17:54:15721Nqbrlkou IjawoojROTIBYQIRL9261-45-35 17:54:198.7[facility] ZpzwmiaENPVGLITBQ2906-47-85 17:54:1950.9[facility] HntebgyYKPOEJWXYZ6621-73-01 17:54:1940.1[facility] EMNBFISHIL3219-90-68 17:54:196.0[facility] CdysyqhHIBSECHSZT6925-11-05 17:54:192.3 [facility] GpnwwufAVIPSYDRCQ9140-06-60 17:54:190.7[facility] HermannHEMATOLOGY 2020-08-01 17:54:193.0[facility] GrussodMJBXBUFJDH3351-69-92 17:54:192.3[facility] HtujjgbSYIPDAKJUI7661-80-01 17:54:190.4[facility] XdromleOWMLSGAGRL7716-04-34 17:54:190.1[facility] HermannTUMOR PMFALST3170-59-60 17:54:195[facility] HermannCHEM GSDFZ8661-60-75 17:54:1987[facility] HermannCHEM OCAIB5705-46-54 17:54:1910 [facility]annCHEM VLVCW7823-73-22 17:54:190.74[facility] HermannCHEM PANEL 2020-08-01 17:54:64425Sxnploxd HermannCHEM DGFZB0799-42-41 17:54:194.1[facility] HermannCHEM HRUYW6516-78-23 17:54:22705Pmdblxtu HermannCHEM ENNBW2629-59-23 17:54:1930[facility] HermannCHEM FIBLE7434-04-17 17:54:198.6[facility] HermannCHEM HUYFF2353-22-40 17:54:197.5[facility] HermannCHEM USMZC2891-54-61 17:54:193.6 [facility] HermannCHEM GIMGR2355-01-39 17:54:1917[facility] HermannCHEM PANEL 2020-08-01 17:54:1912[facility] HermannCHEM ITBDX7192-83-54 17:54:1991[facility] HermannCHEM VNKWG7291-77-04 17:54:190.2[facility] HermannCHEM WXHBV3988-66-46 17:54:1910.[facility] HermannCHEM CKOXA3106-90-97 17:54:19 Test Item Value Reference Range Interpretation Comments B/C Ratio (test code = B/C Ratio) 14 1 - [facility] HermannCHEM FMRJB7648-76-69 17:54:193.9[facility] HermannCHEM PANEL 2020-08-01 17:54:19 Test Item Value Reference Range Interpretation Comments A/G Ratio (test code = A/G Ratio) 0.9 1 0.7-1.6 [facility] HermannCHEM GQVEV0873-62-86 17:54:83145Mykzzmic HermannCHEM PANEL 2020-08-01 17:54:192.0[facility] HermannCHEM RLIJU5078-37-35 17:54:193.8[facility] JxiomcgNYBEOQZQPK9119-12-75 17:54:195.8[facility] HbfytblWIDOJAXDXH3541-70-07 17:54:194.19[facility] QxtzcutGQRZSVEGKB5235-42-97 17:54:1912.2[facility] UXMOYHWEPJ7904-05-65 17:54:1937.1[facility] KxmimnxKSZRTUXTOK5005-72-67 17:54:19 88.8[facility] JepxwwyEHSWYBZYMT2947-12-04 17:54:19 Test Item Value Reference Range Interpretation Comments MCH (test code = MCH) 29.1 pg 27.0-31.0 [facility] DsmfindGDHJQOTOWJ9625-50-62 17:54:1932.8[facility] HermannHEMATOLOGY 2020-08-01 17:54:1913.8[facility] FmwunjyVDOWZSSGZV8531-55-40 17:54:89751Dzjnjgfo NrbmquhZIMXBNQVLA0024-48-04 17:54:198.7[facility] DwbkdfpGEGXSXWZHL8143-79-28 17:54:1950.9[facility] OqgsixcMGOCRLQPEH6681-65-96 17:54:1940.1[facility] CLKKXIPBCE3177-86-85 17:54:196.0[facility] UvwbnbhLVLHOVWEME4888-80-08 17:54:192.3 [facility] UvpknzbXIQXVWMCFU4302-23-47 17:54:190.7[facility] HermannHEMATOLOGY 2020-08-01 17:54:193.0[facility] EndajqlZDJWFMTCXT5696-64-93 17:54:192.3[facility] LdwhehqCQVPPGNCES2701-31-95 17:54:190.4[facility] HwzaacyKHIQXGYVRR7469-02-58 17:54:190.1[facility] HermannTUMOR HKOVFCR6554-94-52 17:54:195[facility] Gynecologic Pap Test (Image-guided), Liquid-based Preparation and Human Papillomavirus (HPV) (Aptima) With Reflex to HPV Genotypes 16 and 18,45 16 and 933994-05-68 19:08:00 Test Item Value Reference Range Interpretation Comments Diagnosis (test Comment NEGATIVE FOR code = 45503-8) INTRAEPITHEL IAL LESION OR MALIGNANCY. Specimen adequacy Comment Satisfacto ry for (test code = [place] [address]-1) endocervical co mponent is identified. Performed by: Comment Jennifer mark, (test code = Cytotechnologis t (ASCP) 23999-3) Comment (test . code = 81994-7) Note: (test code Comment The Pap sme ar is a = 2807690) screening test designed to aid in the d etection ofpremalignant and malignant condi tions of the uterine cer vix. It is not adiagnos tic procedure and s hould not be used as the sole means of detectingcervic al cancer. Both false-positive and false-negative reports do occur. Test methodology Comment This liquid based (test code = ThinPrep(R) pap test 11712-0) was screened wi th theuse of an im age guided system. HPV Aptima (test Negative Negative This nuclei c acid code = 05936-6) amplificatio n test detects fourtee n high-riskHPV ty pes (16,18,31,33,35 ,39,45,5 1,52,56,58,59,6 6,68) withoutdifferen tiation. [facility] (test code = Performed at: [facility]) 01 - Lab[address] [id number] Director: Alissa Christine MD, Phone: [phone] rmed at: 02 [facility] [address] [place] [id number] Director: Joe Carroll MD, Phone: [phone] rmed at: 03 - [facility] [address] [place], [place] [id number] Director: Alissa Christine MD, Phone: [phone] men Comment: No. of containers..01 ThinPrep [facility]ial [facility]), Liquid-based Preparation and Human Papillomavirus (HPV) (Aptima) With Reflex to HPV Genotypes 16 and 18,45 16 and 342830-34-37 19:08:00 Test Item Value Reference Range Interpretation Comments Diagnosis (test Comment NEGATIVE FOR code = 25919-6) INTRAEPITHEL IAL LESION OR MALIGNANCY. Specimen adequacy Comment Satisfacto ry for (test code = [place] [address]-3) endocervical co mponent is identified. Performed by: Comment Jennifer mark, (test code = Cytotechnologis t (ASCP) 27523-5) Comment (test . code = 67259-6) Note: (test code Comment The Pap sme ar is a = 1242822) screening test designed to aid in the d etection ofpremalignant and malignant condi tions of the uterine cer vix. It is not adiagnos tic procedure and s hould not be used as the sole means of detectingcervic al cancer. Both false-positive and false-negative reports do occur. Test methodology Comment This liquid based (test code = ThinPrep(R) pap test 89814-0) was screened wi th theuse of an im age guided system. HPV Aptima (test Negative Negative This nuclei c acid code = 70579-5) amplificatio n test detects fourtee n high-riskHPV ty pes (16,18,31,33,35 ,39,45,5 1,52,56,58,59,6 6,68) withoutdifferen tiation. [facility] (test code = Performed at: [facility]) [facility] [place] [id number] Director: Alissa Christine MD, Phone: [phone] rmed at: 02 - [facility] [address] [place], [place] [id number] Director: Joe Carroll MD, Phone: [phone] rmed at: 03 - Lab[address] [id number] Director: Alissa Christine MD, Phone: [phone] Comment: No. of containers..01 ThinPrep [facility]ial [facility] Wo Jstdowqw4795-90-87 22:04:43EXAMINATION: CT ABDOMEN PELVIS WO CONTRAST CLINICAL HISTORY: Abdominal pain acute nonlocalized, diarrhea ofr one month TECHNIQUE: Multiple axial images of the abdomen and pelvis were obtained without intravenous administration of iodinated contrast. Sagittal and coronal computerized reformatted images were also obtained. The lack of intravenous contrast reduces the sensitivity of detecting solidorgan disease. DOSE REDUCTION: CT imaging was performed with iterative reconstruction technique and/or automated exposure control to reduce radiation dose. COMPARISON: CT abdomen pelvis with contrast from 04/29/2017 and 02/28/2015 FINDINGS:1.Atelectasis is noted within the lingula. The lung bases are otherwise clear. The cardiac size is normal. No pericardial effusion. No hiatal hernia. 2.Noncontrast evaluation of the liver is unremarkable. No intrahepatic biliary ductal dilatation. The patient is status post cholecystectomy. 3.The pancreas, spleen, and adrenals are unremarkable. 4.Both kidneys are unremarkable without hydronephrosis or nephrolithiasis. The bladder is decompressed. 5.The patient is status post hysterectomy. The ovaries are not well visualized. 6.No dilated loops of large or small bowel. No intraperitoneal free air or free fluid. The terminal ileum is grossly unremarkable. The appendix is not well visualized, however, there are no secondary signs of inflammation in the right lower quadrant of the abdomen. Questionable mild bowel wall thickening versus under distention is seen within loops of small bowel within the left-sided the abdomen (image 71, series 3). 7.The abdominal aorta is normal in caliber. 8.No abdominal or pelvic lymphadenopathy. Nonspecific, likely reactive lymphnodes are seen within the small bowel mesentery. 9.The bones of the abdomen and pelvis are unremarkable. IMPRESSION: 1.Questionable mild bowel wall thickening within loops of small bowel on the left-sided the abdomen. Findings may represent a mild enteritis. No evidence of bowel obstruction, perforation, or intra-abdominal abscess. [facility]-[id number] Interface, Radiology Results Incoming - 03/19/2020 4:07 PM CST EXAMINATION: CT ABDOMEN PELVIS WO CONTRASTCLINICAL HISTORY: Abdominal pain acute nonlocalized, diarrhea ofr one monthTECHNIQUE: Multiple axial images of the abdomen and pelvis were obtained without intravenous administration of iodinated contrast. Sagittal and coronal computerized reformatted images were also obtained. Thelack of intravenous contrast reduces the sensitivity of detecting solid organ disease.DOSE REDUCTION: CT imaging was performed with iterative reconstruction technique and/or automated exposure control to reduce radiation dose.COMPARISON: CT abdomen pelvis with contrast from 04/29/2017 and 02/28/2015FINDINGS:1.Atelectasis is noted within the lingula. The lung bases are otherwise clear. The cardiac sizeis normal. No pericardial effusion. No hiatal hernia.2.Noncontrast evaluation of the liver is unremar kable. No intrahepatic biliary ductal dilatation. The patient is status post cholecystectomy.3.The pancreas, spleen, and adrenals are unremarkable.4.Both kidneys are unremarkable without hydronephrosisor nephrolithiasis. The bladder is decompressed.5.The patient is status post hysterectomy. The ovaries are not well visualized.6.No dilated loops of large or small bowel. No intraperitoneal free air orfree fluid. The terminal ileum is grossly unremarkable. The appendix is not well visualized, however, there are no secondary signs of inflammation in the right lower quadrant of the abdomen. Questionable mild bowel wall thickening versus under distention is seen within loops of small bowel within the left- sided the abdomen (image 71, series 3).7.The abdominal aorta is normal in caliber.8.No abdominalor pelvic lymphadenopathy. Nonspecific, likely reactive lymph nodes are seen within the small bowel mesentery.9.The bones of the abdomen and pelvis are unremarkable.IMPRESSION:1.Questionable mild bowelwall thickening within loops of small bowel on the left-sided the abdomen. Findings may represent a mild enteritis. No evidence of bowel obstruction, perforation, or intra-abdominal abscess.[id number] HospitalCT Abdomen Pelvis Wo Qmofymzl2663-79-40 22:04:43EXAMINATION: CT ABDOMEN PELVIS WO CONTRAST CLINICAL HISTORY: Abdominal pain acute nonlocalized, diarrhea ofr one month TECHNIQUE: Multiple axial images of the abdomen and pelvis were obtained without intravenous administration of iodinated contrast. Sagittal and coronal computerized reformatted images were also obtained. The lack of intravenous contrast reduces the sensitivity of detecting solidorgan disease. DOSE REDUCTION: CT imaging was performed with iterative reconstruction technique and/or automated exposure control to reduce radiation dose. COMPARISON: CT abdomen pelvis with contrast from 04/29/2017 and 02/28/2015 FINDINGS:1.Atelectasis is noted within the lingula. The lung bases are otherwise clear. The cardiac size is normal. No pericardial effusion. No hiatal hernia. 2.Noncontrast e valuation of the liver is unremarkable. No intrahepatic biliary ductal dilatation. The patient is status post cholecystectomy. 3.The pancreas, spleen, and adrenals are unremarkable. 4.Both kidneys are unremarkable without hydronephrosis or nephrolithiasis. The bladder is decompressed. 5.The patient is status post hysterectomy. The ovaries are not well visualized. 6.No dilated loops of large or small bowel. No intraperitoneal free air or free fluid. The terminal ileum is grossly unremarkable. The appendix is not well visualized, however, there are no secondary signs of inflammation in the right lower quadrant of the abdomen. Questionable mild bowel wall thickening versus under distention is seen within loops of small bowel within the left-sided the abdomen (image 71, series 3). 7.The abdominal aorta is normal in caliber. 8.No abdominal or pelvic lymphadenopathy. Nonspecific, likely reactive lymphnodes are seen within the small bowel mesentery. 9.The bones of the abdomen and pelvis are unremarkable. IMPRESSION: 1.Questionable mild bowel wall thickening within loops of small bowel on the left-sided the abdomen. Findings may represent a mild enteritis. No evidence of bowel obstruction, perforation, or intra-abdominal abscess. [facility]-[id number] Interface, Radiology Results Incoming - 03/19/2020 4:07 PM CST EXAMINATION: CT ABDOMEN PELVIS WO CONTRASTCLINICAL HISTORY: Abdominal pain acute nonlocalized, diarrhea ofr one monthTECHNIQUE: Multiple axial images of the abdomen and pelvis were obtained without intravenous administration of iodinated contrast. Sagittal and coronal computerized reformatted images were also obtained. Thelack of intravenous contrast reduces the sensitivity of detecting solid organ disease.DOSE REDUCTION: CT imaging was performed with iterative reconstruction technique and/or automated exposure control to reduce radiation dose.COMPARISON: CT abdomen pelvis with contrast from 04/29/2017 and 02/28/2015FINDINGS:1.Atelectasis is noted within the lingula. The lung bases are otherwise clear. The cardiac sizeis normal. No pericardial effusion. No hiatal hernia.2.Noncontrast evaluation of the liver is unremar kable. No intrahepatic biliary ductal dilatation. The patient is status post cholecystectomy.3.The pancreas, spleen, and adrenals are unremarkable.4.Both kidneys are unremarkable without hydronephrosisor nephrolithiasis. The bladder is decompressed.5.The patient is status post hysterectomy. The ovaries are not well visualized.6.No dilated loops of large or small bowel. No intraperitoneal free air orfree fluid. The terminal ileum is grossly unremarkable. The appendix is not well visualized, however, there are no secondary signs of inflammation in the right lower quadrant of the abdomen. Questionable mild bowel wall thickening versus under distention is seen within loops of small bowel within the left- sided the abdomen (image 71, series 3).7.The abdominal aorta is normal in caliber.8.No abdominalor pelvic lymphadenopathy. Nonspecific, likely reactive lymph nodes are seen within the small bowel mesentery.9.The bones of the abdomen and pelvis are unremarkable.IMPRESSION:1.Questionable mild bowelwall thickening within loops of small bowel on the left-sided the abdomen. Findings may represent a mild enteritis. No evidence of bowel obstruction, perforation, or intra-abdominal abscess.[facility]-[id number] HospitalCHEM DNRBV6966-45-24 06:45:96132Nghqshbp HermannCHEM QKXLU4882-29-20 06:45:368[facility] HermannCHEM DUKZL2151-13-19 06:45:360.76[facility] HermannCHEM NFRQG7817-54-51 06:45:19145 [facility] HermannCHEM KDTCP8681-88-93 06:45:363.7[facility] HermannCHEM PANEL 2019-04-12 06:45:64774Efwyvxta HermannCHEM DYOFR1821-37-13 06:45:3626[facility] HermannCHEM VENNK7245-97-03 06:45:368.5[facility] HermannCHEM NWABV2068-91-38 06:45:368.7[facility] HermannCHEM OIVFQ6276-59-40 06:45:17246Kcypqpgk [place] XLQSVMTALM9039-82-56 06:45:3647.2[facility] FaiygnaFILIXGNNAJ2641-34-03 06:45:36 45.7[facility] SagrmuvHIFGARYCRX7301-90-96 06:45:365.1[facility] HermannHEMATOLOGY 2019-04-12 06:45:361.4[facility] QsqrcztMMQDUFZNAO8923-27-10 06:45:360.6[facility] CmlwzcqLRMUIVVPKN8269-60-96 06:45:364.1[facility] XasecetCSVDHMZQKL9805-75-57 06:45:364.0[facility] TlqlscuPKBBSVGWRM7132-80-92 06:45:360.4[facility] ZGLSNCGKTC2002-90-93 06:45:360.1[facility] LeqqzdwSPJTVAZHJH2962-70-93 06:45:360.1 [facility] PasnppyOZBCCIGKJO6052-64-68 06:45:368.7[facility] HermannHEMATOLOGY 2019-04-12 06:45:364.15[facility] KhwbjytPHMLFCTMYH4875-18-31 06:45:3612.1[facility] TxtdxpaUGTRREQIIL2085-31-21 06:45:3637.0[facility] HbwwlijNAMOAXTJHZ7063-80-58 06:45:3689.1[facility] BrqadjnVCAZJXPIIA4047-53-37 06:45:36 Test Item Value Reference Range Interpretation Comments MCH (test code = MCH) 29.1 pg 27.0-31.0 [facility] AzjzeqqQLVELYYSFR4205-15-83 06:45:3632.7[facility] HermannHEMATOLOGY 2019-04-12 06:45:3614.4[facility] IrvczznZEAKGEXZAC7043-14-39 06:45:87607Sahnshed TvkgzlrEARFYSHKXZ9976-24-41 06:45:368.4[facility] HermannCHEM NNJVR5431-36-33 06:45:08561Anqnfcuu HermannCHEM UWFUQ9176-75-95 06:45:368[facility] HermannCHEM ZPHCX8459-19-25 06:45:360.76[facility] HermannCHEM ALERO9386-12-72 06:45:33450 [facility] HermannCHEM USGHK4889-24-15 06:45:363.7[facility] HermannCHEM PANEL 2019-04-12 06:45:85876Hfztfbsk HermannCHEM IOCBW7030-08-86 06:45:3626[facility] HermannCHEM MKFMV2364-58-03 06:45:368.5[facility] HermannCHEM PROTZ1509-48-38 06:45:368.7[facility] HermannCHEM QFBMG5976-03-28 06:45:12687Xwxtchpc [facility] EVEIMYSFUP5046-96-86 06:45:3647.2[facility] WambqvkAGDJOZZKAF8437-61-16 06:45:36 45.7[facility] DavkckxSATGWDXWES6351-49-53 06:45:365.1[facility] HermannHEMATOLOGY 2019-04-12 06:45:361.4[facility] TjzblnuSZIIWJVFRD9485-44-41 06:45:360.6[facility] CfylsujFARLCQLUYB2963-71-93 06:45:364.1[facility] TuskmhwEXCIXGLECU2041-60-73 06:45:364.0[facility] GsodoncXHRVIZFNHX1806-51-64 06:45:360.4[facility] [place] YAURSEFTER4797-05-58 06:45:360.1[facility] KyyawwmMUCKEOQKUC3288-08-86 06:45:360.1 [facility] NqtcibtENIONKZKJV2167-51-29 06:45:368.7[facility] HermannHEMATOLOGY 2019-04-12 06:45:364.15[facility] LrlozxxJBILPPILFV5036-91-35 06:45:3612.1[facility] McxnrmpDJFSEZZPXE5839-40-20 06:45:3637.0[facility] UcxggryGOJOARPQBS7652-88-75 06:45:3689.1[facility] EgqdevqSMMQCTCZPN6307-33-91 06:45:36 Test Item Value Reference Range Interpretation Comments MCH (test code = MCH) 29.1 pg 27.0-31.0 [facility] WdyeklwKMZDGOPAPQ4006-42-65 06:45:3632.7[facility] HermannHEMATOLOGY 2019-04-12 06:45:3614.4[facility] HsbezxcVXRIBTSYKZ4885-56-04 06:45:92065Vshzbqpy VlkzpagOCJYFXRQRO6382-11-12 06:45:368.4[facility] HermannCHEM JPTFL7903-87-74 06:59:72002Xdunrwoi HermannCHEM DEPIF3929-33-48 06:59:0017[facility] HermannCHEM YPMUD2784-83-75 06:59:007.6[facility] HermannCHEM QMRHS0422-86-17 06:59:75295 [facility] HermannCHEM IRVDI7550-68-50 06:59:003.5[facility] HermannCHEM PANEL 2018-04-05 06:59:33478Mvemcter HermannCHEM PDKXE0495-28-59 06:59:76428Sujasgwm HermannCHEM CWTSN9833-32-47 06:59:000.67[facility] HermannCHEM QHNIV9181-69-25 06:59:007[facility] HermannCHEM ORFTK2982-45-72 06:59:0014.5[facility] HermannCHEM SXIHY7104-01-59 06:59:002.6[facility] HermannCHEM OUPEL4971-83-47 06:59:001.8 [facility] RhcilegBNDBOBTQPL0194-12-76 06:59:31014Dscsfpve HermannHEMATOLOGY 2018-04-05 06:59:64969Pdvzqtba GpdomxoCNMYAHZMBV8214-87-92 06:59:000.5[facility] MokexisLWBFAUPTGT4732-25-35 06:59:003.5[facility] YiwqkbyPXGSGJCUNE0004-86-44 06:59:001.9[facility] BjpneabZYCIWXXNAQ6006-49-01 06:59:000.3[facility] [place] ROHOHMTNAK4224-17-35 06:59:0032.7[facility] JdbehirZCPGEHGPGC6617-58-35 06:59:00 0.1[facility] PplphnxRFGNTSAZKO6908-82-25 06:59:0060.9[facility] HermannHEMATOLOGY 2018-04-05 06:59:005.8[facility] DvtvjvkZEULZUZNHX1918-67-45 06:59:00 Test Item Value Reference Range Interpretation Comments MCH (test code = MCH) 29.4 pg 27.0-31.0 [facility] IrbprsbMKBEQAAQKE8046-07-96 06:59:0032.7[facility] HermannHEMATOLOGY 2018-04-05 06:59:0015.0[facility] SxiivwsADCEAHSXZW9446-40-90 06:59:16763Wrtubjeo JzuzhxwMQEANQTDXA3139-73-47 06:59:009.7[facility] MirhoxjEYKPVFJVFK9117-88-03 06:59:0090.0[facility] RqijwboDCMZLMISTE4021-14-27 06:59:005.7[facility] IORIAVRVSA0472-31-45 06:59:0010.7[facility] IcvqqtcYVNWTPLRTH0513-23-35 06:59:00 32.8[facility] EqpvjhiQMRQYUFELX9072-96-34 06:59:003.64[facility] HermannPARATHYROID BNFOCHT4638-06-23 06:59:001.01[facility] HermannPARATHYROID BYCKXNU4119-50-76 06:59:001.01[facility] HermannCHEM IQJES0089-62-76 06:59:08483Ffgekwsw HermannCHEM ZOWPT3980-37-64 06:59:0017[facility] HermannCHEM LSIPJ0774-79-08 06:59:007.6 [facility] HermannCHEM ATVZD6223-15-73 06:59:44131Fjpnxuie HermannCHEM PANEL 2018-04-05 06:59:003.5[facility] HermannCHEM DJHPA5732-40-78 06:59:94619Lqautjsn HermannCHEM VXFRG4922-84-84 06:59:34542Afbgynzk HermannCHEM GHWIP4237-97-53 06:59:000.67[facility] HermannCHEM VJJII7251-58-17 06:59:007[facility] HermannCHEM HFCXG0209-75-77 06:59:0014.5[facility] HermannCHEM MXDFS5394-35-54 06:59:002.6 [facility] HermannCHEM NLZTS7427-04-38 06:59:001.8[facility] HermannHEMATOLOGY 2018-04-05 06:59:54831Nzyvcrzf YwmkcamGIBJKUGVMD5268-72-77 06:59:49515Tnvtmznr UleaaiyTFKTXDZAZZ5889-63-83 06:59:000.5[facility] CxyhrowCMSBDZTQOS3633-28-71 06:59:003.5[facility] DyqcdxbEYZNOKLWZX6420-37-66 06:59:001.9[facility] JCYKCCECVA5095-54-99 06:59:000.3[facility] DibrjboNXPGMLCVWV0046-56-60 06:59:00 32.7[facility] EmlnizeECIGMRUXEG2622-70-61 06:59:000.1[facility] HermannHEMATOLOGY 2018-04-05 06:59:0060.9[facility] LcitdslGFCXFCOVUZ9129-01-69 06:59:005.8[facility] RcbppfrDXLKUIABWG4285-29-23 06:59:00 Test Item Value Reference Range Interpretation Comments MCH (test code = MCH) 29.4 pg 27.0-31.0 [facility] EykkavlCPBVPUPAME2799-78-18 06:59:0032.7[facility] HermannHEMATOLOGY 2018-04-05 06:59:0015.0[facility] FvgjwiwVJXXRXGGQI8139-53-31 06:59:68760Kmsbtgtt XcwjwlaYSSMSVOKNT0435-03-67 06:59:009.7[facility] PxxesjdMZRZCMQRXF1913-89-10 06:59:0090.0[facility] DaeyxaqYQGMWTUUKU5195-41-98 06:59:005.7[facility] LCFEORAJTM6363-57-33 06:59:0010.7[facility] WqlfjxgVGECPLEOHB8880-01-48 06:59:00 32.8[facility] IzcllddUVQBSFWNDK4256-99-64 06:59:003.64[facility] HermannPARATHYROID FYTSVTD5676-94-76 06:59:001.01[facility] HermannPARATHYROID JJBLNGB4254-76-12 06:59:001.01[facility] VpqngdeQUKEOYSXYI5371-29-75 14:24:00 Test Item Value Reference Range Interpretation Comments POC Activated Clotting Time (test code 208 s = POC Activated Clotting Time) [facility]VoypcblRWQXZZEBXH8427-78-07 14:24:00 Test Item Value Reference Range Interpretation Comments POC Activated Clotting Time (test code 208 s = POC Activated Clotting Time) [facility] UzyjzwcGQSVSTOQUV5144-72-93 13:49:00 Test Item Value Reference Range Interpretation Comments POC Activated Clotting Time (test code 134 s = POC Activated Clotting Time) [facility] XzcubaoKTRBFGROKI7765-46-77 13:49:00 Test Item Value Reference Range Interpretation Comments POC Activated Clotting Time (test code 134 s = POC Activated Clotting Time) [facility] GISTIQS8753-82-66 12:41:00Negative (04/04/18 6:41 AM) [facility] CenterCuclpfjGZGDDRQCZQ2489-08-22 12:41:27602Edsvkyxa HermannHEMATOLOGY 2018-04-04 12:41:78819Mqsylvzy [facility]BL[facility]OD BANK DLQXSSC8292-01-19 12:41:00 Negative (04/04/18 6:41 AM)[facility] LlylrkxQGMCVRMMDZ2723-54-09 12:41:09678 [facility] HbteslpPNKSDUXZYL3034-87-28 12:41:49455Wjckziom [facility]BL[facility] B[facility] LNVVOWS5764-81-07 12:36:00Negative (03/28/18 6:36 AM)[facility] HermannHEMATOLOGY 2018-03-28 12:36:45313Kdqppfuf VedpyllWVJQWWEOEK3264-50-53 12:36:84456Xbjsnoww [facility]BL[facility] BANK FMIDAUQ1431-87-21 12:36:00Negative (03/28/18 6:36 AM)[facility] OxyvbtjFLKNYSDPLB4023-67-21 12:36:88253Qhvdvffv VfawnyfYTFJUHGKBK2176-94-53 12:36:43503Pbdivmcs HermannCHEM RFQMS9791-59-09 16:00:00 Test Item Value Reference Range Interpretation Comments B/C Ratio (test code = B/C Ratio) 14 1 6-25 [facility] HermannCHEM UOVEN0944-55-12 16:00:003.4[facility] HermannCHEM PANEL 2018-03-24 16:00:00 Test Item Value Reference Range Interpretation Comments A/G Ratio (test code = A/G Ratio) 1.0 1 0.7-1.6 [facility] HermannCHEM [id number] 16:00:0012.4[facility]annCHEM PANEL 2018-03-24 16:00:0099[facility]annCHEM [id number] 16:00:57156Bvumjjhx HermannCHEM [id number] 16:00:000.2[facility]annCHE[facility] [id number] 16:00:0018[facility]annCHE[facility] [id number] 16:00:009[facility]annCHE[facility] [id number] 16:00:003.5[facility]annCHE[facility] [id number] 16:00:006.9 [facility]CHE[facility] [id number] 16:00:009.1[facility]annCHEM PANEL 2018-03-24 16:00:0098[facility]CHE[facility] [id number] 16:00:000.77[facility]idadCHE[facility] [id number] 16:00:0011[facility]idadCHEM [id number] 16:00:05630Nfydeans HermannCHEM [id number] 16:00:0026[facility]CHE[facility] [id number] 16:00:004.[address] [place] [place] 16:00:72892 [facility] [id number] 16:00:00 Test Item Value Reference Range Interpretation Comments INR (test code = INR) 0.92 1 0.85-1.17 [facility] CenterDoncvlrQQXWGDSFUL8633-10-53 16:00:00 Test Item Value Reference Range Interpretation Comments PT (test code = PT) 12.2 s 12.0-14.7 [facility] CenterXmlzopjMSJJWOQAEE2817-47-12 16:00:00 Test Item Value Reference Range Interpretation Comments PTT (test code = PTT) 29.7 s 22.9-35.8 [facility] CenterShsclcvKTHJAGMYPS4513-21-82 16:00:00 Test Item Value Reference Range Interpretation Comments R-time (test code = R-time) 6.7 min 5.0-10.0 [facility] CenterUwahklyNEULLMFJJH5770-35-83 16:00:00 Test Item Value Reference Range Interpretation Comments K-time (test code = K-time) 1.4 min 1.0-3.0 [facility] CenterRdhijshLWFOYBKCXZ3361-98-33 16:00:00 Test Item Value Reference Range Interpretation Comments Coag Index (test code 0.6 1 See_Comment [Auto mated message] The = Coag Index) system which g enerated this result transmit sky reference range : <=3.0. The reference range was not used to interpr et this result as osmin l/abnormal. [facility] CenterFyjhtvsPHYSITOJKV4771-09-76 16:00:00See Note (03/24/18 10:00 AM)[facility] CenterQthagzzABQGQAMZJK4838-21-03 16:00:000.1[facility] CenterUabtybcVAASPOLILU9562-67-81 16:00:00 Test Item Value Reference Range Interpretation Comments Angle (test code = Angle) 70.2 degrees 53.0-72.0 [place] 005559-02-15 16:00:00 Test Item Value Reference Range Interpretation Comments Max Amp (test code = Max Amp) 64.8 mm 50.0-70.0 [facility] HbndyyiSQKZINGMKY4403-52-64 16:00:009.2[facility]annHEMATOLOGY 2018-03-24 16:00:009.8[facility] EumrulgEBXHOEBVLO8735-03-86 16:00:19124Gglkztem FekczwfAXCMDVCATX9512-51-53 16:00:006.4[facility] ZvgtebxBGALVPUJAB0628-07-18 16:00:00 Test Item Value Reference Range Interpretation Comments MCH (test code = MCH) 29.3 pg 27.0-31.0 [facility] AxhfecoTCJNRAEWDP2635-15-39 16:00:0014.2[facility]annHEMATOLOGY 2018-03-24 16:00:004.23[facility] WxrgrdvRQFVLSBRMI3415-44-47 16:00:0088.0[facility] IeigkquKDDXBWVMYQ6452-55-79 16:00:0037.2[facility] AaszqsmAHIVREKRRE4271-82-05 16:00:0033.2[facility] NpysxfvKROALDEPHH9435-79-90 16:00:0012.4[facility] HETYLRDTPW0630-25-35 16:00:0067.2[facility] QtofwpiHJSTXKFJGV2065-78-13 16:00:00 1.6[facility] FiineztBVMWRDUJKR1142-65-39 16:00:000.4[facility]annHEMATOLOGY 2018-03-24 16:00:004.3[facility] ZmzrlkhGGQWJMNEHS1126-60-78 16:00:001.0[facility] UlouaicPSZCCBYMRT7901-86-84 16:00:000.1[facility] TkfrrivKUIIAGGRFR6326-39-33 16:00:000.4[facility] HjxxumgNGDZMENPMY8121-87-36 16:00:005.5[facility] ULUVEOFOMB9397-35-51 16:00:0025.9[facility] DpwpsuuXTMAZDLPGV7740-81-33 16:00:00 458[facility] CuqmjogZCDBCMXUIY6021-29-28 16:00:10029Xydkiedb HermannCHEM PANEL 2018-03-24 16:00:00 Test Item Value Reference Range Interpretation Comments B/C Ratio (test code = B/C Ratio) 14 1 6-25 [facility]annCHEM CKCYR8958-31-03 16:00:003.4[facility]annCHEM PANEL 2018-03-24 16:00:00 Test Item Value Reference Range Interpretation Comments A/G Ratio (test code = A/G Ratio) 1.0 1 0.7-1.6 [facility]annCHEM BHNGO1552-39-19 16:00:0012.4[facility]annCHEM PANEL 2018-03-24 16:00:0099[facility]annCHEM HZVMF6584-93-01 16:00:41791Zednhosq HermannCHEM NIVPR2996-51-73 16:00:000.2[facility]annCHEM YXDJV1910-35-17 16:00:0018[facility]annCHEM NXEAT7890-78-59 16:00:009[facility]annCHEM IAYCW6309-44-58 16:00:003.5[facility]annCHEM QCAHV4207-60-28 16:00:006.9 [facility]annCHEM PPTYJ8651-55-49 16:00:009.1[facility]annCHEM PANEL 2018-03-24 16:00:0098[facility]annCHEM JLMDD2791-53-24 16:00:000.77[facility]annCHEM YTRZB6176-79-81 16:00:0011[facility]annCHEM GAPEJ6404-57-52 16:00:86673Wzhwlsan HermannCHEM NORFB2713-75-36 16:00:0026[facility]annCHEM IECPA8116-01-33 16:00:004.4[facility]annCHEM ZQTZN1871-37-50 16:00:81589 [facility] NvqtgnpLMTWBWQRDY1590-44-75 16:00:00 Test Item Value Reference Range Interpretation Comments INR (test code = INR) 0.92 1 0.85-1.17 [facility] TjtbifvQWAILXTXPO2991-99-00 16:00:00 Test Item Value Reference Range Interpretation Comments PT (test code = PT) 12.2 s 12.0-14.7 [facility] CenterPwshczmXQOUGWPUPY9312-41-02 16:00:00 Test Item Value Reference Range Interpretation Comments PTT (test code = PTT) 29.7 s 22.9-35.8 [facility] CenterTsdbudfVHEVJYVUHV7589-95-30 16:00:00 Test Item Value Reference Range Interpretation Comments R-time (test code = R-time) 6.7 min 5.0-10.0 [facility] CenterXlkjrqiMPMPPVILYL0271-53-20 16:00:00 Test Item Value Reference Range Interpretation Comments K-time (test code = K-time) 1.4 min 1.0-3.0 [facility] CenterGhijkajNKZJITHCFI1263-11-27 16:00:00 Test Item Value Reference Range Interpretation Comments Coag Index (test code 0.6 1 See_Comment [Auto mated message] The = Coag Index) system which g enerated this result transmit sky reference range : <=3.0. The reference range was not used to interpr et this result as osmin l/abnormal. [facility] CenterUralfqzKCAQQWHLQW7026-50-84 16:00:00See Note (03/24/18 10:00 AM)[facility] CenterVpvbbxrCOXXZOHBZP8106-64-86 16:00:000.1[facility] TilpxtzIWOTAKHEIM8719-01-56 16:00:00 Test Item Value Reference Range Interpretation Comments Angle (test code = Angle) 70.2 degrees 53.0-72.0 [facility] CenterCagdynrGJXTRKDCLI2404-28-26 16:00:00 Test Item Value Reference Range Interpretation Comments Max Amp (test code = Max Amp) 64.8 mm 50.0-70.0 [facility] CenterQmkekjfGUIEPCZYZZ3237-35-88 16:00:009.2[facility]annHEMATOLOGY 2018-03-24 16:00:009.8[facility] MtnnniuHBGHOEKPDS0250-19-07 16:00:41254Ovdughvb KnmralkKKMFBJICKA9375-12-75 16:00:006.4[facility] JbbdasqGPKLCTZXUN7135-80-75 16:00:00 Test Item Value Reference Range Interpretation Comments MCH (test code = MCH) 29.3 pg 27.0-31.0 [facility] CenterPbpuxrwAUCSHQPLUB3026-61-03 16:00:0014.2[facility]annHEMATOLOGY 2018-03-24 16:00:004.23[facility] UddpepfVCIJHDDPDX9994-21-42 16:00:0088.0[facility] CdtwlfdLBSUHPAHJH6450-45-39 16:00:0037.2[facility] ZsahqcwUWDQCNDRVJ1233-19-92 16:00:0033.2[facility] GoahcojSUJZAAVRUH6736-29-55 16:00:0012.4[facility] GFTTNWPOZX4656-91-08 16:00:0067.2[facility] DkapzomNCGVHNZONU5567-23-78 16:00:00 1.6[facility] FdjvzwyBOWPAQCBLQ4329-34-44 16:00:000.4[facility]annHEMATOLOGY 2018-03-24 16:00:004.3[facility] UfqtgvvUPLWIJHPWR6020-15-74 16:00:001.0[facility] ZjzhauwKUXDDMRADM3521-22-99 16:00:000.1[facility] BljswgqQDRIKBLQOQ4214-88-19 16:00:000.4[facility] TipthxuZSJBGGRWVN0913-40-54 16:00:005.5[facility] AZDZFWATLG5040-23-39 16:00:0025.9[facility] AduuggrCNZBQYAHUW2127-38-32 16:00:00 458[facility] AjtiwwnGXZZMDKSJJ4799-77-40 16:00:27145Pdtwfrma HermannCHEM PANEL 2018-03-09 10:47:96140Ctiberih HermannCHEM XJQSV9838-89-01 10:47:0014[facility]annCHEM YQQXT1654-05-08 10:47:000.93[facility] HermannCHEM TVDOX1379-06-54 10:47:07473Oiljfupv HermannCHEM SFUOY2690-26-47 10:47:004.1[facility] HermannCHEM UAWKT7875-09-36 10:47:72945Aeweetzw HermannCHEM ZKLRH8590-87-11 10:47:0021 [facility]annCHEM VDYLN7363-47-10 10:47:008.5[facility] HermannCHEM PANEL 2018-03-09 10:47:0079[facility] HermannCHEM ZCKLJ3991-85-24 10:47:0015.1[facility] HbodwrxYGMXEPZEZK9812-29-02 10:47:0082.2[facility] MhkdxwiJGCAHUJNNK1425-64-43 10:47:0016.4[facility] DncwixvADNTXRCJXH5403-49-67 10:47:001.3[facility] STRWLZGPYP5045-04-51 10:47:000.1[facility] YjbrsvvPZKDDHOVGT3732-74-02 10:47:006.2 [facility] JjaquxaJIWJITTZAD4838-85-98 10:47:001.2[facility]annHEMATOLOGY 2018-03-09 10:47:000.1[facility] TeksaoiKLYIRTIFNZ9260-84-56 10:47:007.5[facility] CimxgcyBCTWRTUNAM4675-18-39 10:47:004.32[facility] PuqybpiLCYYGLMXMA2978-25-23 10:47:0012.7[facility] PfhtyeoZOGJJSVVIJ2611-65-95 10:47:0037.8[facility] NNFCNIVSOV9988-04-20 10:47:0087.6[facility] JtircnkHTDDDZUYER2558-88-48 10:47:00 Test Item Value Reference Range Interpretation Comments MCH (test code = MCH) 29.5 pg 27.0-31.0 [facility] LnztpacKBGEHXQGCG2623-29-95 10:47:0033.6[facility]annHEMATOLOGY 2018-03-09 10:47:0014.0[facility] CawcqorUKGANBJFGL8140-82-51 10:47:97833Uurqlbas FfeyxamWHWDVLUKQM2382-23-29 10:47:009.7[facility] HermannCHEM RQZLH0653-21-71 10:47:41224Qvgmaelu HermannCHEM HNTLM1338-76-08 10:47:0014[facility] HermannCHEM JDKKK6806-58-19 10:47:000.93[facility] HermannCHEM XIHZU6641-22-65 10:47:00236 [facility]annCHEM VXVDU3406-19-72 10:47:004.1[facility] HermannCHEM PANEL 2018-03-09 10:47:95500Rhucyhom HermannCHEM YSDIT2494-77-72 10:47:0021[facility] HermannCHEM CGHPO5437-64-65 10:47:008.5[facility] HermannCHEM HYFJJ9840-05-61 10:47:0079[facility] HermannCHEM DEMCY1806-13-42 10:47:0015.1[facility] AZKNBSUEOK4383-09-78 10:47:0082.2[facility] IebhhkqGKHQJGGLOL8695-85-94 10:47:00 16.4[facility] ZyywgwaIDEJVLTOQO5470-94-95 10:47:001.3[facility] HermannHEMATOLOGY 2018-03-09 10:47:000.1[facility] JscdjxtYFJGQVCIBI8715-05-82 10:47:006.2[facility] FhjikysEPEDUTXIUI3791-15-52 10:47:001.2[facility] PairmxkDSPZLXXSEU0275-09-55 10:47:000.1[facility] WiqtrzeOSWGWYMTNU4731-92-21 10:47:007.5[facility] TFLSDIDREX9418-56-29 10:47:004.32[facility] ShyplklSLTLWJNLYX9658-86-59 10:47:00 12.7[facility] WluwwogWSUCLLMOZE4789-04-62 10:47:0037.8[facility]annHEMATOLOGY 2018-03-09 10:47:0087.6[facility] ZjontzfQZLSEVDMBY7003-28-76 10:47:00 Test Item Value Reference Range Interpretation Comments MCH (test code = MCH) 29.5 pg 27.0-31.0 [facility] XonwnbpXLTHYXEOHT0642-64-97 10:47:0033.6[facility]annHEMATOLOGY 2018-03-09 10:47:0014.0[facility] UuypcqhJGXVYNPYRO1628-99-75 10:47:99562Bsnjrktu ZeptlncXUMBMMRXLF7429-34-77 10:47:009.7[facility] HermannBACTERIAL - SEROLOGY 2018-03-08 10:55:00Negative (03/08/18 4:55 AM)[facility] HermannBACTERIAL - NZGLCJZO4642-28-99 10:55:00Negative (03/08/18 4:55 AM)[facility]annHEMATOLOGY 2018-03-08 10:46:00 Test Item Value Reference Range Interpretation Comments MCH (test code = MCH) 29.5 pg 27.0-31.0 [facility] XmgotjpFDPRKLIXDD1796-33-78 10:46:0034.0[facility]annHEMATOLOGY 2018-03-08 10:46:0013.8[facility] UcfaguvSBFBAOEGBD0551-10-60 10:46:26490Qyeypztl NnusyepBRXQPAQMWG3026-91-65 10:46:0010.2[facility] StiygcoOJSBROXISB9256-44-12 10:46:0079.7[facility] FdvyuaoTDOBPGLWQN6431-59-23 10:46:0018.6[facility] HCVZCOHXAL1668-99-71 10:46:001.4[facility] MzmakclTJJKEJGWBS8100-22-32 10:46:000.3 [facility] HaxajxoIQRKFYPZGN7091-07-69 10:46:005.8[facility] HermannHEMATOLOGY 2018-03-08 10:46:001.4[facility] JubpadsJLPYKMZNRN7602-52-33 10:46:000.1[facility] HermannCHEM ZUPRP4966-12-50 10:46:00 Test Item Value Reference Range Interpretation Comments B/C Ratio (test code = B/C Ratio) 11 1 6-25 [facility]annCHEM CDSSP4847-72-98 10:46:004.0[facility] HermannCHEM PANEL 2018-03-08 10:46:00 Test Item Value Reference Range Interpretation Comments A/G Ratio (test code = A/G Ratio) 0.8 1 0.7-1.6 [facility]annCHEM JVIEI4427-61-02 10:46:0012.9[facility] HermannCHEM PANEL 2018-03-08 10:46:0091[facility] HermannCHEM VLWMU4448-47-20 10:46:000.2[facility] HermannCHEM JTLOY5114-94-23 10:46:0010[facility]annCHEM YPZQP3374-90-45 10:46:0082[facility]annCHEM XZQJG9742-43-78 10:46:0018[facility]annCHEM CIMGA1268-92-88 10:46:35796Mvgcfrcf HermannCHEM ZWFDY5970-89-33 10:46:000.83 [facility]annCHEM NWDEN1957-34-17 10:46:003.9[facility] HermannCHEM PANEL 2018-03-08 10:46:009[facility]annCHEM VYNEY8739-78-49 10:46:007.3[facility]annCHEM HIOLW9857-85-08 10:46:003.3[facility]annCHEM IZWDG0726-30-50 10:46:01961Lixbfmiz HermannCHEM VLDJN6798-39-72 10:46:0021[facility] HermannCHEM MDMMN3542-88-45 10:46:008.5[facility]annCHEM XORDW4181-12-67 10:46:81442 [facility] XqvoghwBGKTUUCPSWYU0416-32-27 10:46:0012.9[facility] HermannELECTROLYTES 2018-03-08 10:46:00 Test Item Value Reference Range Interpretation Comments B/C Ratio (test code = B/C Ratio) 11 1 6-25 [facility] MiznrqvWSJPMMRVYJMD8372-72-78 10:46:004.0[facility] HermannELECTROLYTES 2018-03-08 10:46:00 Test Item Value Reference Range Interpretation Comments A/G Ratio (test code = A/G Ratio) 0.8 1 0.7-1.6 [facility] GemolrnSUZTKHHEBCNL3228-40-90 10:46:39333Wvmbihbk HermannELECTROLYTES 2018-03-08 10:46:009[facility] ZlvqfuvGBRALJLFZAKP4435-37-27 10:46:000.83[facility] MyhzmqgKCUMAELLNOBX8694-11-95 10:46:21431Rflkeekh UdwbgwhRWTRSCQIUMUM6609-10-36 10:46:003.9[facility] XvfsereJTMCHTIVIYSI8148-05-63 10:46:61092Gqdnbgsi [place] UFMQZQJGWVZN0698-30-97 10:46:0021[facility] LsfqndiUYEWOCMGEHYC5998-81-21 10:46:00 8.5[facility] RxkraaeRLRRLRWPFUHT7016-05-86 10:46:007.3[facility] NRRWCNNOOEIF7710-99-58 10:46:003.3[facility] AfrxuvsITOTNVQORWLM8042-89-23 10:46:0018[facility] VyaqdbrNTWDNEDNUJLT2086-01-90 10:46:0010[facility] EKYBHBONCMSN1441-17-62 10:46:0082[facility] KyavfkfGQQERQTCSFRR1195-20-98 10:46:00 0.2[facility] HhuvpzwIIUFFXXSBRTF6693-46-41 10:46:0091[facility]annHEMATOLOGY 2018-03-08 10:46:007.3[facility] HmlngtmZCTAFWUQVV1218-39-85 10:46:004.14[facility] QdizqhzBVADFFHPUY1455-29-01 10:46:0012.2[facility] NmzjxalNACCGEPURT8396-79-85 10:46:0036.0[facility] GicibujEBGWCNVKRF6953-76-15 10:46:0086.9[facility] WZACIIKWQC3011-28-58 10:46:00 Test Item Value Reference Range Interpretation Comments MCH (test code = MCH) 29.5 pg 27.0-31.0 [facility] KwyouogLBWXXSMDYJ9182-79-10 10:46:0034.0[facility]annHEMATOLOGY 2018-03-08 10:46:0013.8[facility] GwvghwoTLGTMSQJOT2020-05-93 10:46:42745Enuccjef PtnzkyvVMUBLQCTPV4818-21-42 10:46:0010.2[facility] FygbcmfOFBCXUCPPF5517-60-80 10:46:0079.7[facility] KtqlfwxQFUROOLAIF4520-37-22 10:46:0018.6[facility] DXTECFBGFY8769-86-60 10:46:001.4[facility] VlqfxvbFKCQNKQIFY9981-45-24 10:46:000.3 [facility] UrxrjpqVOXBMRAANO0312-55-55 10:46:005.8[facility]annHEMATOLOGY 2018-03-08 10:46:001.4[facility] BbqakijATYHMIUCQP5764-17-15 10:46:000.1[facility] HermannCHEM PXADX4542-26-20 10:46:00 Test Item Value Reference Range Interpretation Comments B/C Ratio (test code = B/C Ratio) 11 08-01 [facility]annCHEM UCJOT3623-29-49 10:46:004.0[facility]annCHEM PANEL 2018-03-08 10:46:00 Test Item Value Reference Range Interpretation Comments A/G Ratio (test code = A/G Ratio) 0.8 1 0.7-1.6 [facility]annCHEM MQLHA2864-82-86 10:46:0012.9[facility]annCHEM PANEL 2018-03-08 10:46:0091[facility] HermannCHEM ISUSQ5657-61-00 10:46:000.2[facility] HermannCHEM DKSQF1195-73-67 10:46:0010[facility]annCHEM VVAIM7615-02-27 10:46:0082[facility]annCHEM RIWZZ8416-47-74 10:46:0018[facility]annCHEM BNUZH6959-94-70 10:46:29036Qhryvciv HermannCHEM LTHUO1253-86-86 10:46:000.83 [facility]annCHEM WCFNH2969-31-06 10:46:003.9[facility]annCHEM PANEL 2018-03-08 10:46:009[facility] HermannCHEM ATWNJ1654-05-81 10:46:007.3[facility] HermannCHEM BGJVX2858-76-79 10:46:003.3[facility] HermannCHEM FWLPJ4827-88-86 10:46:12899Yfwgixjn HermannCHEM QZETZ1154-28-52 10:46:0021[facility] HermannCHEM KKIOH9948-93-01 10:46:008.5[facility]annCHEM IMMJB6965-94-29 10:46:44792 [facility] NqonzupIJMQTNLOEYLO9518-26-66 10:46:0012.9[facility] HermannELECTROLYTES 2018-03-08 10:46:00 Test Item Value Reference Range Interpretation Comments B/C Ratio (test code = B/C Ratio) 11 08-01 [facility] QqwblmjMUVAXVGKAQKK8791-12-85 10:46:004.0[facility] HermannELECTROLYTES 2018-03-08 10:46:00 Test Item Value Reference Range Interpretation Comments A/G Ratio (test code = A/G Ratio) 0.8 1 0.7-1.6 [facility] KyorrkoZPTENTTGSYFL7110-48-14 10:46:43313Odxnhqsr HermannELECTROLYTES 2018-03-08 10:46:009[facility] HiwyoqlJBVOHCFBAWQE4865-03-18 10:46:000.83[facility] RqwlmfhQOSWURDSAKTN1045-79-41 10:46:69565Bztdugyb FjsfgrzVBTHJGENLMWR2259-00-50 10:46:003.9[facility] YvuxbqlPNVOATECQIFO7882-58-95 10:46:81734Dtgdbrlt [facility] UZZCGUQZBGXV5054-21-31 10:46:0021[facility] IyyoljxXJHPWYCBXOPB9557-88-95 10:46:00 8.5[facility] PzvdbykWXUDYABCQHYI8538-06-43 10:46:007.3[facility] DWLXGZWAFBVW1306-66-93 10:46:003.3[facility] DhwlkmmYZWWKQNRXZCJ9499-13-09 10:46:0018[facility] YxamyzgKCKYVVADWQYF7623-51-20 10:46:0010[facility] CBVMTPFMFWHM4869-88-53 10:46:0082[facility] VdkgpdoTELGPYVKREDT2772-83-48 10:46:00 0.2[facility] ByzmoiyENQCCCOAHEWM8907-01-52 10:46:0091[facility]annHEMATOLOGY 2018-03-08 10:46:007.3[facility] MeudbilGHRHASJJRV0134-13-83 10:46:004.14[facility] TgygcrdJHNTAFSOSA0808-81-79 10:46:0012.2[facility] GorrbtjUEGVIKHYOY9553-89-91 10:46:0036.0[facility] VmqdtchGZXYDTRTGP0763-64-48 10:46:0086.9[facility] CHEM HGQSW9263-18-26 21:03:000.8[facility] HermannCHEM ZRKRX0569-93-31 21:03:0094 [facility]annCHEM YCUUQ6246-95-83 21:03:000.8[facility] HermannCHEM PANEL 2018-03-07 21:03:0094[facility] HermannCARDIAC YRZFNET6689-74-27 20:56:80466 [facility]annCARDIAC EZBLXOO3674-47-47 20:56:00<0.02[facility] LORPGDFTYDBP4691-91-41 20:56:0015.3[facility] NxilmhhFBXDOVHUCCFP6676-60-31 20:56:21577Ovxtykkf NqqjlpiTPNUSGYVZAFO5757-17-35 20:56:009[facility] XQEDEKIAYBVV4653-57-89 20:56:000.91[facility] ZduyaymODMUZYZHQZLH0527-67-99 20:56:96660Xwvrncop SfurrgqKCLEDNHEVYRK7592-22-85 20:56:004.3[facility] LCPDQTRAWEFP1340-52-44 20:56:97121Vwxuuolz XvngswmKYWLBAKMCURM6228-01-93 20:56:0021[facility] SwrqrnwTGPFOCUQAZTA3354-03-67 20:56:009.5[facility] TUQMRXUFPZ3061-41-40 20:56:0084.8[facility] NmlbyueGINJRJNQTC7658-17-71 20:56:00 13.4[facility] JdigzsuPZDHQETXBU4162-61-81 20:56:001.4[facility] HermannHEMATOLOGY 2018-03-07 20:56:000.2[facility] JjmmutsJOBPJXBCJU8545-07-52 20:56:000.2[facility] NygropeAATGQLERWK6125-87-19 20:56:006.2[facility] XvswvzhVIHNITPUBV0231-50-29 20:56:001.0[facility] ZvlyyflOLYHRRZCGZ4184-31-59 20:56:000.1[facility] GWIWIJSLGS3206-50-26 20:56:007.3[facility] EeaohscXVPZVPZUWB4986-35-66 20:56:00 4.38[facility] ZocxvkgEQUWQAUFVE3494-04-16 20:56:0012.6[facility] HermannHEMATOLOGY 2018-03-07 20:56:0037.7[facility] UzdcsttBBNDQGQCUF8412-86-36 20:56:0086.1[facility] CuasextBILAIOALQC9642-31-48 20:56:00 Test Item Value Reference Range Interpretation Comments MCH (test code = MCH) 28.9 pg 27.0-31.0 [facility]NjfwcovVKJSVGVKJK8604-23-14 20:56:0033.5[facility] HermannHEMATOLOGY 2018-03-07 20:56:0014.2[facility] WutwbmzNCYXUVCKQQ3563-42-35 20:56:83462Hjwbbowx VuczieuDSPAUWEVGL8207-91-24 20:56:008.8[facility] UayjwwdQZKHBFCLWM9206-14-91 20:56:00 Test Item Value Reference Range Interpretation Comments PT (test code = PT) 12.0 s 12.0-14.7 [facility] CenterIvvfflkDHFMJSVTTI0616-80-46 20:56:00 Test Item Value Reference Range Interpretation Comments INR (test code = INR) 0.90 1 0.85-1.17 [facility] QxngkfrTWXVDRZRZQ7844-46-65 20:56:00 Test Item Value Reference Range Interpretation Comments PTT (test code = PTT) 28.8 s 22.9-35.8 [facility] HermannCARDIAC FFHJMEI2439-79-87 20:56:29150Ckuvovzr HermannCARDIAC AAFXBEI1012-55-18 20:56:00<0.02[facility] LxnfimiSDZDEUVCDRWU8521-35-82 20:56:0015.3[facility] QsfwrhrQCGIDCFIWFDE7121-13-68 20:56:06064Ccvjoisc [place] KLWAGCMCWPLM5860-68-09 20:56:009[facility] WteltupYMEHAXLDMCRK8261-62-87 20:56:00 0.91[facility] JsefddlUXOGPVSREBCA1072-37-14 20:56:04242Zreobanz Trinidad LQLOMLJLKZOS3289-37-07 20:56:004.3[facility] AobdtvhEXIFSVOYTTZU3171-68-67 20:56:34492Scahaptl UmwshfkMDOCEVSGZBVV7271-32-87 20:56:0021[facility] ASFVNRYIXILX3907-20-86 20:56:009.5[facility] NtdbuyyWDZPBPLIUH6929-27-13 20:56:00 84.8[facility] XalwtmyRELBNAAGCY7598-10-29 20:56:0013.4[facility]Y 2018-03-07 20:56:001.4[facility] AnxssuoASNSRXIUTZ4908-78-34 20:56:000.2[facility] PdejyudORPKRMGPSU3248-10-29 20:56:000.2[facility] UpdycmkSJMQEPBNUP0021-36-74 20:56:006.2[facility] OqskggkYTUIBLLJJK5489-52-25 20:56:001.0[facility] VHQHUXGRQW3413-56-01 20:56:000.1[facility] IlvggtvJCWCNAOLSD1239-74-68 20:56:007.3 [facility] PardhhrOVOLJOAJCE0521-42-50 20:56:004.38[facility] 2018-03-07 20:56:0012.6[facility] EnwcnowYLPTUEJALU2210-51-37 20:56:0037.7[facility] WpqbqrgAEMZTEXYZB4708-20-40 20:56:0086.1[facility] ZdklnbhNDVVIDBQAU2887-65-60 20:56:00 Test Item Value Reference Range Interpretation Comments MCH (test code = MCH) 28.9 pg 27.0-31.0 [facility]ZIDRA0571-20-55 20:56:0033.5[facility] 2018-03-07 20:56:0014.2[facility] UcndibeFJAZCLNFFU3783-38-55 20:56:28984Ivccscrs YuqgjttVGYQYJCDPL7321-57-59 20:56:008.8[facility] PlujkevVZCUYHPQUN2693-12-79 20:56:00 Test Item Value Reference Range Interpretation Comments PT (test code = PT) 12.0 s 12.0-14.7 [facility] RdcicxuUNMBMFWVJU6279-80-51 20:56:00 Test Item Value Reference Range Interpretation Comments INR (test code = INR) 0.90 1 0.85-1.17 [facility] EcubqtqLWHWLNDYKI9552-74-84 20:56:00 Test Item Value Reference Range Interpretation Comments PTT (test code = PTT) 28.8 s 22.9-35.8 [facility] BLDVVN2188-89-98 22:03:0061[facility] FLUIDS 2018-03-05 22:03:00Clear (03/05/18 4:03 PM)[facility] RNGYPW7293-99-02 22:03:00Colorless (03/05/18 4:03 PM)[facility] YBTTTB3014-23-59 22:03:00 Test Item Value Reference Range Interpretation Comments Tube Num CSF (test code = Tube Num CSF) 1 1 [facility] VYWXAE5486-98-61 22:03:001[facility] FLUIDS 2018-03-05 22:03:00Colorless (03/05/18 4:03 PM)[facility] 2018-03-05 22:03:0040[facility] ZQTSNE8110-27-43 22:03:0089[facility] PLZKCC4244-01-08 22:03:000[facility] QFARMW8357-49-17 22:03:00Colorless (03/05/18 4:03 PM)[facility] YHPDLS1387-68-28 22:03:00 Test Item Value Reference Range Interpretation Comments Tube Num CSF (test code = Tube Num CSF) 4 1 [facility] ANGCDP2485-14-15 22:03:00Colorless (03/05/18 4:03 PM) [facility] QLHZWD8825-54-32 22:03:00Clear (03/05/18 4:03 PM)[facility] CNDGPX8857-04-61 22:03:0022[facility] MPNTGS1648-68-63 22:03:0061[facility] IKWFIU6403-18-72 22:03:00Clear (03/05/18 4:03 PM) [facility] OGGHZX3987-34-67 22:03:00Colorless (03/05/18 4:03 PM) [facility] UYQUGI6109-48-96 22:03:00 Test Item Value Reference Range Interpretation Comments Tube Num CSF (test code = Tube Num CSF) 1 1 [facility] UHUYBS5422-90-90 22:03:001[facility] FLUIDS 2018-03-05 22:03:00Colorless (03/05/18 4:03 PM)[facility] FLUIDS 2018-03-05 22:03:0040[facility] TFLOAI1173-20-09 22:03:0089[facility] WGLGGS8316-11-72 22:03:000[facility] YXEITJ5139-32-64 22:03:00Colorless (03/05/18 4:03 PM)[facility] RIZIWB8328-21-06 22:03:00 Test Item Value Reference Range Interpretation Comments Tube Num CSF (test code = Tube Num CSF) 4 1 [facility] DNUHXN1600-85-48 22:03:00Colorless (03/05/18 4:03 PM) [facility] ANBPIP6948-01-08 22:03:00Clear (03/05/18 4:03 PM)[facility] VMEMRG0319-15-40 22:03:0022[facility] AND XCAPF9383-12-17 03:07:00Slight Cloudy (02/27/18 9:07 PM)[facility] ABQKD2401-27-05 03:07:00Yellow *NA*(02/27/18 9:07 PM)[facility] SYXMM5434-87-46 03:07:00 Test Item Value Reference Range Interpretation Comments UA Spec Grav (test code = UA Spec 1.020 1 Grav) [facility] SXZCI8015-76-69 03:07:00Negative (02/27/18 9:07 PM) [facility] EFIUM6759-92-78 03:07:00Negative (02/27/18 9:07 PM) [facility] UVVNP5507-28-05 03:07:000.2[facility] OPDMX8985-00-98 03:07:00Negative (02/27/18 9:07 PM)[facility] MLUCE2937-46-29 03:07:00Negative *NA*(02/27/18 9:07 PM)[facility] MMNGZ7242-03-69 03:07:00Negative (02/27/18 9:07 PM)[facility] FOLYE6933-78-75 03:07:00Negative *NA*(02/27/18 9:07 PM)[facility] DQLPD9614-01-79 03:07:00Negative (02/27/18 9:07 PM)[facility] QNTFU8963-54-16 03:07:00 Test Item Value Reference Range Interpretation Comments UA pH (test code = UA pH) 6.0 1 5.0-8.0 [facility] ZCAD6551-95-05 03:07:00Negative (02/27/18 9:07 PM)[facility] HGEKZ9348-64-88 03:07:00Slight Cloudy (02/27/18 9:07 PM)[facility] OMWWB0852-75-41 03:07:00Yellow *NA*(02/27/18 9:07 PM)[facility] STIJS2158-17-44 03:07:00 Test Item Value Reference Range Interpretation Comments UA Spec Grav (test code = UA Spec 1.020 1 Grav) [facility] GXBHD4160-52-76 03:07:00Negative (02/27/18 9:07 PM) [facility] KCAWH4994-50-28 03:07:00Negative (02/27/18 9:07 PM) [facility] VCXTC3833-90-14 03:07:000.2[facility] AND JJWXE8462-68-50 03:07:00Negative (02/27/18 9:07 PM)[facility] MFCVM0147-74-16 03:07:00Negative *NA*(02/27/18 9:07 PM)[facility] HLWSH3948-56-15 03:07:00Negative (02/27/18 9:07 PM)[facility] AJWEY0742-52-88 03:07:00Negative *NA*(02/27/18 9:07 PM)[facility] PEWRK4386-22-63 03:07:00Negative (02/27/18 9:07 PM)[facility] CDSHC2471-92-51 03:07:00 Test Item Value Reference Range Interpretation Comments UA pH (test code = UA pH) 6.0 1 5.0-8.0 [facility] TUDZ7876-29-23 03:07:00Negative (02/27/18 9:07 PM)[facility] LMXPT1410-80-13 23:16:60846Uidmkswm HermannCHEM ZUAYP1782-65-95 23:16:279.4[facility]annCHE[facility] FTTWP6840-27-76 23:16:2727[facility]annCHE[facility] UWVZF7332-32-67 23:16:76794Yaknhapl HermannCHEM GTRKN9938-25-52 23:16:64944 [facility] QERWJ3724-18-79 23:16:2711[facility]annCHE[facility] PANEL 2018-02-27 23:16:61660Ccblrfwa [facility]annCHEM OOLFY5688-51-74 23:16:273.6[facility]annCHEM BORRR4308-16-74 23:16:270.76[facility]annCHE[facility] WJJJW3803-79-14 23:16:2715.6[facility] BppyiiySXFLSEZRXA2039-69-28 23:16:270.3[facility] UGTFLRHEBZ9364-99-26 23:16:272.5[facility] PnuadbuLVJZLLSCPZ0009-94-26 23:16:274.0 [facility] SzhsgnoZGUYIEMXBS4858-04-04 23:16:270.7[facility]annHEMATOLOGY 2018-02-27 23:16:270.6[facility] KhbmpwqXONEUBSJGQ6036-73-02 23:16:274.9[facility] HfvcsvtUQMOGKBVLU9601-11-67 23:16:2735.7[facility] BnaxqinNKOISQIVSJ0523-05-56 23:16:2758.1[facility] UdodtdfCJGVLZYNPU7310-70-60 23:16:2713.1[facility] GEWEOEXIKY5454-91-58 23:16:2710.1[facility] XkdnqduPMJIHGZEHD1033-29-65 23:16:27 14.4[facility] HcafbzfMTSPEYDBDI6955-30-61 23:16:2732.7[facility]annHEMATOLOGY 2018-02-27 23:16:27 Test Item Value Reference Range Interpretation Comments MCH (test code = MCH) 28.4 pg 27.0-31.0 [facility]DpgxmagVANGSPRIWG4117-60-13 23:16:2740.2[facility]annHEMATOLOGY 2018-02-27 23:16:2787.1[facility] FsxpljgDNIFWGXYVP5561-30-23 23:16:274.61[facility] FmboqevFTWQHAYKEB9157-08-95 23:16:87539Hhxedgmf KcyfyvnDOCNRBMZDF4152-10-28 23:16:276.9[facility] YzhktklNZLTFZBJBN8737-60-82 23:16:27 Test Item Value Reference Range Interpretation Comments INR (test code = INR) 0.88 1 0.85-1.17 [facility] CenterJrtnepuFTDHJWRFMX8576-54-83 23:16:27 Test Item Value Reference Range Interpretation Comments PT (test code = PT) 11.8 s 12.0-14.7 [facility] CenterIximlviZUXNHNHJOW6009-96-50 23:16:27 Test Item Value Reference Range Interpretation Comments PTT (test code = PTT) 28.4 s 22.9-35.8 [facility] HermannCHEM JYSOQ5566-83-16 23:16:58129Jxnhkgng HermannCHEM PANEL 2018-02-27 23:16:279.4[facility]annCHE[facility] QRHYA4947-74-03 23:16:2727[facility]annCHE[facility] YRUFD5331-78-63 23:16:02757Lgtchczk HermannCHEM AOZLA4303-80-77 23:16:33201Dlbfkydw [facility]annCHEM DMPFA2764-87-42 23:16:2711[facility]annCHE[facility] PYDTK6280-03-36 23:16:73396Nhvjittr HermannCHEM ZDYNQ4649-34-54 23:16:273.6 [facility]CHE[facility] OPZOJ7479-20-58 23:16:270.76[facility]annCHEM PANEL 2018-02-27 23:16:2715.6[facility] IaokaoaXTSSRULINY1790-52-43 23:16:270.3[facility] MujhrnaWLOAITOOXF3643-65-72 23:16:272.5[facility] SrbisukDQMGFWZZZF2566-61-72 23:16:274.0[facility] LnfhkysNZXHNFNWKN8631-54-74 23:16:270.7[facility] MITLGFNQFZ8322-29-87 23:16:270.6[facility] SysmdcrLGYVVTOBHN5253-96-83 23:16:274.9 [facility] NsrnhdnBODUGYKCYW9881-01-47 23:16:2735.7[facility]annHEMATOLOGY 2018-02-27 23:16:2758.1[facility] CbbzginELCCBAVYUU0793-68-15 23:16:2713.1[facility] JdollqfIFLGEZITUZ5362-82-74 23:16:2710.1[facility] WvqznctHBAGXIGYAQ3155-13-17 23:16:2714.4[facility] LtpdqjsETXMTRXZQZ9495-18-31 23:16:2732.7[facility] EHYKMPWDIK8902-25-37 23:16:27 Test Item Value Reference Range Interpretation Comments MCH (test code = MCH) 28.4 pg 27.0-31.0 [facility] BzedcqzNZNCFJRZNZ5070-14-70 23:16:2740.2[facility]annHEMATOLOGY 2018-02-27 23:16:2787.1[facility] NaznwmqFXXTIFNSQZ8358-34-46 23:16:274.61[facility] CdjidmpTYQQBFLDDW1627-39-36 23:16:33985Rkxsgyot DbjeamqRRYICWOGWI9073-72-98 23:16:276.9[facility] QanocrfVKYMUQGEJY4029-11-32 23:16:27 Test Item Value Reference Range Interpretation Comments INR (test code = INR) 0.88 1 0.85-1.17 [facility] UdmcfeaALPGOLWUYZ0921-30-86 23:16:27 Test Item Value Reference Range Interpretation Comments PT (test code = PT) 11.8 s 12.0-14.7 [facility] ZvmffnnDBZPCRSIJZ5768-44-00 23:16:27 Test Item Value Reference Range Interpretation Comments PTT (test code = PTT) 28.4 s 22.9-35.8 [facility] CenterannB[facility] BGXUID6007-57-93 16:36:000[facility] FLUIDS 2017-08-11 16:36:00Colorless (08/11/17 11:36 AM)[facility] 2017-08-11 16:36:000[facility]annB[facility] WJUFET8493-97-47 16:36:00Clear (08/11/17 11:36 AM)[facility] GABROW9391-88-72 16:36:00Colorless (08/11/17 11:36 AM)[facility] BDFKEK9398-74-97 16:36:00 Test Item Value Reference Range Interpretation Comments Tube Num CSF (test code = Tube Num CSF) 3 1 [facility] DTEEPM4314-74-18 16:36:0074[facility]annB[facility] FLUIDS 2017-08-11 16:36:0020[facility] IasgqmxEAJXXSJVSA7879-70-08 16:36:00Non Reactive (08/11/17 11:36 AM)[facility] RZMAZV9279-69-10 16:36:000[facility] BODY BUTPBI5124-36-73 16:36:00Colorless (08/11/17 11:36 AM)[facility] LHIFFN5485-58-56 16:36:000[facility] OXEWQD3673-04-40 16:36:00Clear (08/11/17 11:36 AM)[facility] LWCITV9688-79-42 16:36:00Colorless (08/11/17 11:36 AM)[facility] OZCZOK0266-99-59 16:36:00 Test Item Value Reference Range Interpretation Comments Tube Num CSF (test code = Tube Num CSF) 3 1 [facility]annB[facility] EKSOAA6432-95-29 16:36:0074[facility]annB[facility] FLUIDS 2017-08-11 16:36:0020[facility] SvogvifEYEECJYXYI8257-31-66 16:36:00Non Reactive (08/11/17 11:36 AM)[facility]annCHEM IHOFD5870-69-51 03:08:0080[facility] CHEM AWMHV7941-40-04 03:08:84008Yweswigw HermannCHEM LGIQE8039-48-24 03:08:0011 [facility]annCHE[facility] WFGQA2613-22-10 03:08:003.5[facility]annCHEM PANEL 2017-08-11 03:08:000.92[facility]annCHEM OTTNK7606-10-96 03:08:44945Xgpaniyf HermannCHEM BSRLQ7306-65-39 03:08:0015.5[facility]annCHEM HWTGS2105-94-31 03:08:008.0[facility]annCHEM DMLVE3552-70-45 03:08:97243Sdeumykh HermannCHEM DXKIF7046-92-41 03:08:0024[facility]annCHE[facility] CTYZW1201-92-53 03:08:0080 [facility]CHE[facility] YJHNA0037-16-04 03:08:72842Nelwrhxm HermannCHEM PANEL 2017-08-11 03:08:0011[facility]annCHE[facility] KLRDB5618-46-87 03:08:003.5[facility]annCHEM VHRRB2120-05-70 03:08:000.92[facility]annCHEM PWLCX0805-07-20 03:08:22944Fmoevkdf HermannCHEM HLHEI2756-06-70 03:08:0015.5[facility]annCHEM ZJDCX0025-12-88 03:08:008.0[facility]annCHEM PUBBR8694-53-93 03:08:35313 [facility]annCHE[facility] OHDKO8964-19-10 03:08:0024[facility]annCARDIAC ENZYMES 2017-08-10 17:46:001.0[facility]annCARDIAC WOPHTFT2441-17-81 17:46:00 Test Item Value Reference Range Interpretation Comments CK MB Index (test 0.7 1 See_Comment [Automate d message] The code = CK MB Index) system w [facility] generated this result transmit sky reference range : <=2.5. The reference range was not used to interpr et this result as osmin l/abnormal. [facility]CARDIAC GTXCZJS2920-41-55 17:46:00<0.010[facility] CARDIAC GMAPMCY7692-86-70 17:46:00<0.02[facility]annCARDIAC ENZYMES 2017-08-10 17:46:82487Exoeixlm HermannCARDIAC NBDALPB3062-12-22 17:46:001.0 [facility]CARD[facility]AC PHPAZNL5905-79-30 17:46:00 Test Item Value Reference Range Interpretation Comments CK MB Index (test 0.7 1 See_Comment [Automate d message] The code = CK MB Index) system w [employer] generated this result transmit sky reference range : <=2.5. The reference range was not used to interpr et this result as osmin l/abnormal. [facility]annCARDIAC IDRLVZB0605-89-78 17:46:00<0.010[facility] CARDIAC KMEXGED5256-21-20 17:46:00<0.02[facility]annCARDIAC ENZYMES 2017-08-10 17:46:46231Ebblpgjn HermannCARDIAC ILUKULZ1251-50-85 10:42:00 <0.010[facility]annCARDIAC FWWTTTK5487-33-64 10:42:00<0.02[facility]annCARDIAC IEYAJDH6780-31-15 10:42:00 Test Item Value Reference Range Interpretation Comments CK MB Index (test 0.9 1 See_Comment [Automate d message] The code = CK MB Index) system [employer] generated this result transmit sky reference range : <=2.5. The reference range was not used to interpr et this result as osmin l/abnormal. [facility]CARDIAC GIITIIP6042-84-44 10:42:001.4[facility]annCARDIAC VCFICFQ2023-08-40 10:42:52295Kbkjllng HermannCARDIAC JLIYXBB7283-77-09 10:42:00 <0.010[facility]CARDIAC WVKPVMP9274-34-18 10:42:00<0.02[facility]annCARDIAC PIIRAMB3619-08-39 10:42:00 Test Item Value Reference Range Interpretation Comments CK MB Index (test 0.9 1 See_Comment [Automate d message] The code = CK MB Index) system w [employer] generated this result transmit sky reference range : <=2.5. The reference range was not used to interpr et this result as osmin l/abnormal. [facility]CARDIAC UJQPBXB1974-85-76 10:42:001.4[facility]annCARDIAC UDPEEEJ2561-29-53 10:42:80147Lpqxmtse [facility]annCARDIAC YRPYMKD4367-49-21 02:57:00 Test Item Value Reference Range Interpretation Comments CK MB Index (test 1.3 1 See_Comment [Automate d message] The code = CK MB Index) system [employer] generated this result transmit sky reference range : <=2.5. The reference range was not used to interpr et this result as osmin l/abnormal. [facility]CARDIAC XANNPSI2454-64-80 02:57:002.3[facility]annCARDIAC VXPLVMV1691-13-50 02:57:97312Tgjyofps [facility]annCARDIAC BAWGPPH3755-20-25 02:57:00 <0.010[facility]annCARDIAC GWGNUXO5159-82-99 02:57:00<0.02[facility]annCARDIAC OJYLRBZ2721-06-55 02:57:00 Test Item Value Reference Range Interpretation Comments CK MB Index (test 1.3 1 See_Comment [Automate d message] The code = CK MB Index) system [employer] generated this result transmit sky reference range : <=2.5. The reference range was not used to interpr et this result as osmin l/abnormal. [facility] DBYUPMY7009-96-30 02:57:002.3[facility]annCARDIAC OQSACAM6522-73-56 02:57:43685Sxarbffb [facility]annCARDIAC NXXTHKL3273-40-16 02:57:00 <0.010[facility]annCARDIAC ZQEZRMG6006-73-04 02:57:00<0.02[facility]annCHEM LGEUE2916-01-67 00:29:002.9[facility]annCHEM MHTCZ4376-34-01 00:29:001.9[facility]annCHEM DXBDO3357-25-82 00:29:002.9[facility]annCHEM MAQEM3428-12-11 00:29:001.9[facility] DTUBN9868-45-68 19:28:00 None Seen (08/09/17 2:28 PM)[facility] NKGKJ5340-16-48 19:28:00None Seen (08/09/17 2:28 PM)[facility] LSGYA7159-19-23 19:28:00None Seen (08/09/17 2:28 PM)[facility] CNIJJ9497-21-23 19:28:00Clear (08/09/17 2:28 PM)[facility] HOFWN3800-67-07 19:28:00Negative (08/09/17 2:28 PM)[facility] HZPOF9431-06-84 19:28:00Negative *NA*(08/09/17 2:28 PM)[facility] LHDTD6656-85-80 19:28:00Negative (08/09/17 2:28 PM) [facility] KSLSY7969-71-97 19:28:00Negative (08/09/17 2:28 PM) [facility] AAXHF1194-20-72 19:28:000.2[facility] KXNIX9015-44-08 19:28:00Yellow *NA*(08/09/17 2:28 PM)[facility] LPKTS2637-21-81 19:28:00<=1.005 *NA*(08/09/17 2:28 PM)[facility] OBGNQ5206-62-49 19:28:00Negative *NA*(08/09/17 2:28 PM)[facility] LHYNO2667-98-86 19:28:00 Test Item Value Reference Range Interpretation Comments UA pH (test code = UA pH) 6.0 1 5.0-8.0 [facility] SRDFW4547-68-14 19:28:00Negative (08/09/17 2:28 PM) [facility] XWZID5515-83-33 19:28:00Negative (08/09/17 2:28 PM) [facility] JGGGS7465-56-26 19:28:00None Seen (08/09/17 2:28 PM) [facility] KWJRC9132-17-50 19:28:00None Seen (08/09/17 2:28 PM) [facility] EWDLJ8989-77-73 19:28:00None Seen (08/09/17 2:28 PM) [facility] LQRML0106-33-33 19:28:00Clear (08/09/17 2:28 PM)[facility] JLHCK2633-75-56 19:28:00Negative (08/09/17 2:28 PM)[facility] GOUHN1218-46-64 19:28:00Negative *NA*(08/09/17 2:28 PM)[facility] YOSPS1146-73-37 19:28:00Negative (08/09/17 2:28 PM)[facility] BEUUG2116-90-57 19:28:00Negative (08/09/17 2:28 PM)[facility] BOMDT1708-97-19 19:28:000.2[facility] STOOL 2017-08-09 19:28:00Yellow *NA*(08/09/17 2:28 PM)[facility] STOOL 2017-08-09 19:28:00<=1.005 *NA*(08/09/17 2:28 PM)[facility] ICQYK4612-05-14 19:28:00Negative *NA*(08/09/17 2:28 PM)[facility] AVNRI8876-41-84 19:28:00 Test Item Value Reference Range Interpretation Comments UA pH (test code = UA pH) 6.0 1 5.0-8.0 [facility] RGFKB3728-46-07 19:28:00Negative (08/09/17 2:28 PM) [facility] WAPQW7490-20-62 19:28:00Negative (08/09/17 2:28 PM) [facility]annBLOOD BANK SOHLZMS3915-26-22 18:30:00Negative (08/09/17 1:30 PM) [facility]BL[facility] B[facility] YWSYMJU7737-27-48 18:30:00Negative (08/09/17 1:30 PM) [facility]annCHE[facility] TKIGQ2145-38-85 16:58:0098[facility]annCHEM PANEL 2017-08-09 16:58:0026[facility]annCHEM VRSNO4648-65-96 16:58:003.3[facility]annCHEM TATAJ6598-38-86 16:58:12951Oweuhind HermannCHEM ESTZB2248-40-24 16:58:008.6[facility]annCHEM GCJMU8992-60-79 16:58:0085[facility]annCHEM AJGLQ0646-67-20 16:58:0012[facility]annCHEM AQYXW6681-85-24 16:58:000.78 [facility]annCHE[facility] LYYPD3240-25-86 16:58:86764Nsvxtzha HermannCHEM PANEL 2017-08-09 16:58:0011.3[facility] ImaeacaTRQMVTUAAXHKF9230-45-33 16:58:00Negative *NA*(08/09/17 11:58 AM)[facility] SsddjgfVLALWQGBGY7287-38-47 16:58:009.2[facility] YdipnwdJTSVKYHRAR0987-76-91 16:58:004.12[facility] AumysjvDZOXDNCRMO2813-00-04 16:58:009.1[facility] NwtqmjbAYFVCYPHVD0747-06-98 16:58:0014.0[facility] NXOMWTXCDX8067-97-93 16:58:42143Eegcvfkh KozvegdKNWYADJYEW6339-43-38 16:58:00 33.4[facility] EcamacmCACTAENNSG7478-75-28 16:58:00 Test Item Value Reference Range Interpretation Comments MCH (test code = MCH) 30.0 pg 27.0-31.0 [facility] ZpjoxmaRWMMTXSGYX8086-70-72 16:58:0089.6[facility]annHEMATOLOGY 2017-08-09 16:58:0036.9[facility] BclnwbbVGMJIFEUBM0437-34-26 16:58:0012.3[facility] VjrqbfhJHYWQWOJGY5989-06-61 16:58:000.1[facility] UdgeyhfIEBUDZQDYP6492-49-55 16:58:000.1[facility] BraaipuROSNODXFBI5037-70-75 16:58:000.5[facility] OMIAGZBCWK5184-13-34 16:58:006.0[facility] VishzroTXREOYTHXX5433-95-68 16:58:003.1 [facility] PfwpwnnSXDYDXFGZL7889-20-23 16:58:005.3[facility]annHEMATOLOGY 2017-08-09 16:58:001.0[facility] GikwyilDGXHGPJURN1663-10-78 16:58:000.6[facility] YxdlhalPDKYZZPFJI5417-58-55 16:58:0033.8[facility] LygraflVRHRCPDNYR2522-57-34 16:58:0058.6[facility] SlzyzynAVHEJLEWWB9723-56-04 16:58:00 Test Item Value Reference Range Interpretation Comments PTT (test code = PTT) 24.1 s 22.9-35.8 [facility] UeewyqzZXKWOPOQZT8951-43-85 16:58:00 Test Item Value Reference Range Interpretation Comments INR (test code = INR) 0.83 1 0.85-1.17 [facility] ArxgsiaLUSOGJBQVZ3687-78-13 16:58:00 Test Item Value Reference Range Interpretation Comments PT (test code = PT) 11.4 s 12.0-14.7 [facility] HermannCHEM LCJLC5538-50-64 16:58:0098[facility]annCHEM PANEL 2017-08-09 16:58:0026[facility]annCHEM SCXVI8765-75-75 16:58:003.3[facility]annCHEM SOZLN1826-51-23 16:58:26050Jpvgltuc HermannCHEM YDHFH3309-20-62 16:58:008.6[facility]annCHEM IDOGI1811-54-95 16:58:0085[facility]annCHEM CQSKH0430-70-97 16:58:0012[facility]annCHEM MXJXK2555-62-40 16:58:000.78 [facility]annCHEM UAYAT0475-05-77 16:58:13837Tefnmgsr HermannCHEM PANEL 2017-08-09 16:58:0011.3[facility] PvqaxixMSDYVOYJUESYF8320-87-02 16:58:00Negative *NA*(08/09/17 11:58 AM)[facility] HpftwqoRPRIWHYYRS9499-28-91 16:58:009.2[facility] BtvtqjiFBDXUWMSRD8589-86-54 16:58:004.12[facility] FgctxrzFDBTUCCISJ3883-43-84 16:58:009.1[facility] BvvpxghHEIQXRDLMV0074-72-98 16:58:0014.0[facility] COUPBROGLG4419-02-32 16:58:85939Krbmrrhl ZpuapzdKVSSIUMYFY7794-18-26 16:58:00 33.4[facility] ZknvnycHKAFOOAEZM2314-38-30 16:58:00 Test Item Value Reference Range Interpretation Comments MCH (test code = MCH) 30.0 pg 27.0-31.0 [facility] PgclavxRQSUUXGFXP6584-89-65 16:58:0089.6[facility]annHEMATOLOGY 2017-08-09 16:58:0036.9[facility] DltsvgsNPPNADOQOJ9540-78-94 16:58:0012.3[facility] AigkiwkRKYPOMMKJB6685-81-97 16:58:000.1[facility] ZadlsbiXZEGHREJEK7842-66-44 16:58:000.1[facility] EmjeuwrVFOQEIFIBM6257-61-84 16:58:000.5[facility] KQZWDXNFTC7980-70-36 16:58:006.0[facility] LderinqNOOMZRODPF8209-21-21 16:58:003.1 [facility] JkvltkpAUVFVSOKMZ0278-68-13 16:58:005.3[facility] HermannHEMATOLOGY 2017-08-09 16:58:001.0[facility] OmlgyumZKNBPLTAVO1430-60-97 16:58:000.6[facility] BqsgtsuQOZXUAXVUX9018-18-18 16:58:0033.8[facility] KdjilmrRSGLDTVRFB8608-97-36 16:58:0058.6[facility] QnklxusOEBQBFNLGP7771-78-51 16:58:00 Test Item Value Reference Range Interpretation Comments PTT (test code = PTT) 24.1 s 22.9-35.8 [facility] KoxlwhxVPZABMZTDG7526-99-52 16:58:00 Test Item Value Reference Range Interpretation Comments INR (test code = INR) 0.83 1 0.85-1.17 [facility] TfnowjoXIECACFAIS6215-88-00 16:58:00 Test Item Value Reference Range Interpretation Comments PT (test code = PT) 11.4 s 12.0-14.7 [facility] CiuyzjaXZZMRBDROW9800-54-45 16:56:00Negative *NA*(08/09/17 11:56 AM) [facility] OclqqjuSQACQXGVAO1417-12-89 16:56:00Negative *NA*(08/09/17 11:56 AM) [facility] HBEBW6758-17-73 00:19:00Negative (08/06/17 7:19 PM) [facility] CKXQI1000-57-25 00:19:00Negative (08/06/17 7:19 PM) [facility] QRCEW7209-17-42 00:19:00Negative *NA*(08/06/17 7:19 PM) [facility] HFLYQ7511-07-26 00:19:00Negative (08/06/17 7:19 PM) [facility] OURBJ8261-70-76 00:19:00Yellow *NA*(08/06/17 7:19 PM) [facility] IQLUN8939-88-81 00:19:001[facility] MQYON8186-87-92 00:19:001[facility] JNZFS3381-18-11 00:19:00 Test Item Value Reference Range Interpretation Comments UA Spec Grav (test code = UA Spec 1.008 1 Grav) [facility] PCTXK1159-35-43 00:19:00Clear (08/06/17 7:19 PM) [facility] ZGIYB8749-43-27 00:19:00 Test Item Value Reference Range Interpretation Comments UA pH (test code = UA pH) 6.0 1 5.0-8.0 [facility] GKXP8961-42-03 00:19:00Negative (08/06/17 7:19 PM)[facility] TJQTB6895-05-20 00:19:00Negative (08/06/17 7:19 PM)[facility] FAWCA6526-26-61 00:19:00Negative (08/06/17 7:19 PM)[facility] ZBEZK3145-34-74 00:19:00Negative *NA*(08/06/17 7:19 PM)[facility] FCQIV4925-17-00 00:19:00Negative (08/06/17 7:19 PM)[facility] TJAUN2232-98-44 00:19:00Yellow *NA*(08/06/17 7:19 PM)[facility] YHYUD6486-27-95 00:19:001[facility] STOOL 2017-08-07 00:19:001[facility] MGGHF5869-34-90 00:19:00 Test Item Value Reference Range Interpretation Comments UA Spec Grav (test code = UA Spec 1.008 1 Grav) [facility] TDTHA4348-46-96 00:19:00Clear (08/06/17 7:19 PM) [facility] XGTMY2351-95-81 00:19:00 Test Item Value Reference Range Interpretation Comments UA pH (test code = UA pH) 6.0 1 5.0-8.0 [facility] AXLS8685-85-92 00:19:00Negative (08/06/17 7:19 PM)[facility]annCHEM MGJXT0471-81-24 20:09:00 Test Item Value Reference Range Interpretation Comments A/G Ratio (test code = A/G Ratio) 1.0 1 0.7-1.6 [facility] MGKTP5155-02-95 20:09:00 Test Item Value Reference Range Interpretation Comments B/C Ratio (test code = B/C Ratio) 8 1 6-25 [facility] TRIKC6319-99-08 20:09:003.8[facility] PANEL 2017-08-06 20:09:0013.1[facility] KZAIX4443-46-15 20:09:14543Ctasjvuu HermannCHEM MJRMD9990-59-63 20:09:008.7[facility] YPZDN1851-70-67 20:09:007.5[facility] TDMXN7467-00-50 20:09:004.1[facility] KCUGP7511-37-74 20:09:39898Hcdbrkzk [facility]annCHEM VNEWN4027-50-39 20:09:0025 [facility] MTTCR0115-53-89 20:09:99678Qsbyzzkk HermannCHEM PANEL 2017-08-06 20:09:000.74[facility] KBKCR1109-05-33 20:09:006[facility] CBGRS4068-94-92 20:09:000.2[facility] FETYY9600-47-85 20:09:003.7[facility]CHE[facility] CLEVR6560-25-81 20:09:0025[facility] PQNHU1718-82-47 20:09:0016[facility] VEOTP2398-29-33 20:09:0083 [facility] BYGQO2464-02-20 20:09:0099[facility]annHEMATOLOGY 2017-08-06 20:09:000.1[facility] ScoyzdbGDNVPSYTMI0879-88-31 20:09:000.5[facility] BvixsmqMSGWFELVPD0095-09-24 20:09:003.0[facility] TuhmadaPNBTCVIBFM3253-37-01 20:09:000.3[facility] YwrhedlZELDXNOESQ7525-67-70 20:09:002.6[facility] GJOXBXQXRK3143-10-18 20:09:001.0[facility] FdxbjuqKHINZURKCZ1268-80-56 20:09:004.3 [facility] ZnzktesCFBSGRCBCF2014-12-52 20:09:0044.4[facility]annHEMATOLOGY 2017-08-06 20:09:0049.8[facility] RogjybmPBLYKBKCEY7483-32-70 20:09:92782Xfdbmjxl SthlbxpYHEUAGEHTH9289-40-20 20:09:009.2[facility] BiwvxcbETESRKYRDS6937-52-44 20:09:0033.5[facility] DpmyxsfTIAYBTTFUL4501-81-02 20:09:0013.9[facility] TGANMXKXEA9063-09-87 20:09:00 Test Item Value Reference Range Interpretation Comments MCH (test code = MCH) 29.7 pg 27.0-31.0 [facility] MxlzapkDGQLFYXTOK2735-52-84 20:09:0088.7[facility]annHEMATOLOGY 2017-08-06 20:09:0038.0[facility] IjzwwbcDATIOKCWAM6385-56-98 20:09:0012.7[facility] DxpekksQFGQTGUQEO6687-37-25 20:09:006.0[facility] MvnemygMZONFQDTUS2287-97-92 20:09:004.28[facility]CHE[facility] MAJJS0851-73-47 20:09:00 Test Item Value Reference Range Interpretation Comments A/G Ratio (test code = A/G Ratio) 1.0 1 0.7-1.6 [facility] UBCYQ8189-53-17 20:09:00 Test Item Value Reference Range Interpretation Comments B/C Ratio (test code = B/C Ratio) 8 1 6-25 [facility] VDLFT3885-69-50 20:09:003.8[facility]annCHE[facility] PANEL 2017-08-06 20:09:0013.1[facility]CHE[facility] JMDRZ7514-16-90 20:09:34839Molchkyb HermannCHEM ROGIN3452-32-68 20:09:008.7[facility]CHE[facility] DCTTF6509-64-56 20:09:007.5[facility]CHE[facility] IYVWQ2424-87-88 20:09:004.1[facility]CHE[facility] XLLAG9021-08-22 20:09:99126Erxxkfsa HermannCHEM WGWSQ9146-30-03 20:09:0025 [facility] RKWLM8407-43-02 20:09:26497Peomgzoc HermannCHEM PANEL 2017-08-06 20:09:000.74[facility]CHE[facility] ZYIFM1498-65-61 20:09:006[facility] QWTDN5272-38-62 20:09:000.2[facility]annCHE[facility] GWERR1333-51-87 20:09:003.7[facility]annCHE[facility] SOMUM6160-79-24 20:09:0025[facility]CHE[facility] YQMQO8382-16-95 20:09:0016[facility]CHE[facility] PGKYF8698-84-26 20:09:0083 [facility] DBGZB3630-11-94 20:09:0099[facility]annHEMATOLOGY 2017-08-06 20:09:000.1[facility] FuomxtyFOCIZUQUUT6911-87-73 20:09:000.5[facility] ZhbyexmZZZCQLRMLD4571-28-85 20:09:003.0[facility] FurtheqOLCEXMAKWS2174-42-17 20:09:000.3[facility] KlkplzgEEQENLVYMB1950-69-86 20:09:002.6[facility] GOTPRCKHPX4608-54-45 20:09:001.0[facility] RrgsaswRJDDXEEEHX1132-80-26 20:09:004.3 [facility] TomupmlKNVPNIPLXV8239-62-98 20:09:0044.4[facility]annHEMATOLOGY 2017-08-06 20:09:0049.8[facility] ObdilwfZZQKYGMHTC8632-65-33 20:09:11934Notiswlc ShykkieOBJCVUQBXE2484-71-34 20:09:009.2[facility] QnajyxiNPXVGXFYLB1670-83-17 20:09:0033.5[facility] TorxakzAYJZSFXSSM3833-01-38 20:09:0013.9[facility] CNDHWDQDUM0363-18-45 20:09:00 Test Item Value Reference Range Interpretation Comments MCH (test code = MCH) 29.7 pg 27.0-31.0 [facility] KdanpxwEVNASDDIPQ6293-54-62 20:09:0088.7[facility]annHEMATOLOGY 2017-08-06 20:09:0038.0[facility] UwxjjuiVQHQRFOENV9205-66-67 20:09:0012.7[facility] PiyknfvNWKKVSAUCF1801-70-24 20:09:006.0[facility] LxqiokdALVKGJAXNX4114-18-98 20:09:004.28[facility]annCARDIAC YPWXEAN1635-28-71 17:59:16346Cnppbgcv HermannCARDIAC PXOWZRT5545-15-85 17:59:004[facility]annCARD[facility]AC ENZYMES 2015-03-31 17:59:00<0.4[facility]annCARDIAC WDRIKAY2805-69-58 17:59:00 <0.02[facility]annCARDIAC STZZRNC1232-29-55 17:59:00<0.5[facility]annCHEM WTSHW7515-45-71 17:59:0087[facility]annCHE[facility] JVGBR5897-34-90 17:59:25196Eqnoepap HermannCHEM OURJA8928-31-06 17:59:008.4[facility]annCHEM LYLIS1446-50-52 17:59:0028[facility]annCHE[facility] CQBWF1918-81-38 17:59:003.9 [facility]CHE[facility] VLUKJ2517-01-90 17:59:16732Zudscwbc HermannCHEM PANEL 2015-03-31 17:59:000.87[facility]annCHEM KFVTZ2048-53-06 17:59:008[facility]annCHEM WFVKX1793-66-23 17:59:0084[facility]annCHEM RAIJH9905-41-97 17:59:008.9[facility] UqvekkiIEHWNRVUMG1791-47-98 17:59:006.5[facility] ZVTDHKZFOB2161-55-17 17:59:0012.5[facility] SuslnlfVUMMUYFHXM8867-96-83 17:59:00 38.7[facility] XaajnxyFBMLWJGUYM8650-27-78 17:59:44619Ssvwttcf HermannHEMATOLOGY 2015-03-31 17:59:004.36[facility] QlqihqaKFFUTSQWRK9003-59-06 17:59:0088.7[facility] OnagjcaMYBIXLRIPU2059-96-14 17:59:00 Test Item Value Reference Range Interpretation Comments MCH (test code = MCH) 28.7 pg 27.0-31.0 [facility] HkjrfpdVBQZJNWRAL8979-28-09 17:59:0032.3[facility] HermannHEMATOLOGY 2015-03-31 17:59:009.0[facility] BcqtlqsWPAFJJGNRR2699-65-85 17:59:0014.7[facility] FyztcjuPGDJRHVHGM8833-38-55 17:59:000.1[facility] WzczmsqPHXYXGRBCF7241-19-34 17:59:003.7[facility] GavsoqyZSCUTMSGFT6299-90-79 17:59:002.3[facility] ZJDUIOXHKY0912-18-82 17:59:000.3[facility] LvamlhhUPYKSCVCKU4427-49-59 17:59:000.1 [facility] JlnupalPFXTDTAGTF9162-40-46 17:59:001.0[facility]annHEMATOLOGY 2015-03-31 17:59:004.0[facility] UjrvkflWSGYNMZBQN1363-40-86 17:59:001.9[facility] EplotiuMPMHXYYWBC2907-31-15 17:59:0057.9[facility] SwgydxnDQBLQJDKTQ6015-40-69 17:59:0035.2[facility] QfmvkwlAVCJUVYOQF5992-10-03 17:59:00 Test Item Value Reference Range Interpretation Comments PTT (test code = PTT) 28.8 s 22.9-35.8 [facility] VwkvaopUKMMZKUZZK3356-77-30 17:59:00 Test Item Value Reference Range Interpretation Comments PT (test code = PT) 12.8 s 12.0-14.7 [facility] ToqcshnDISABLXTEW6675-08-49 17:59:000.93[facility]annHEMATOLOGY 2015-03-31 17:59:000.80[facility] TTBTE1706-67-30 17:59:007.0 [facility] RVIXK0453-17-10 17:59:00Negative *NA*(03/31/15 11:59 AM)[facility] FKIWH6426-64-18 17:59:00Negative (03/31/15 11:59 AM) [facility] SEHZC2502-09-45 17:59:00Negative (03/31/15 11:59 AM) [facility] ZHQJO0344-27-96 17:59:00Negative (03/31/15 11:59 AM) [facility] CDKUC6086-28-15 17:59:00Clear (03/31/15 11:59 AM) [facility] YWZPG9914-12-73 17:59:001.002[facility] LLVJO6342-03-48 17:59:001[facility]annCARDIAC NCBJBXB3427-71-00 17:59:96253 [facility]annCARDIAC QJUVBRR8845-99-57 17:59:004[facility]annCARDIAC MCRGBZO5115-70-75 17:59:00<0.4[facility]annCARDIAC EIVROSI4161-07-53 17:59:00<0.02[facility]annCARDIAC EHGTDCK3839-38-33 17:59:00<0.5 [facility]annCHEM HONVT0122-12-01 17:59:0087[facility]annCHEM PANEL 2015-03-31 17:59:08603Trdmlxnd HermannCHEM SNPEN8127-16-06 17:59:008.4[facility]annCHEM ORXGO7638-37-50 17:59:0028[facility]annCHEM FVPKZ1521-88-72 17:59:003.9[facility]annCHEM XSMDN0568-80-79 17:59:14256Bieycztb HermannCHEM OFGFP0449-96-42 17:59:000.87[facility]annCHEM YIRKO7626-11-39 17:59:008 [facility]annCHEM TZRZC8290-96-10 17:59:0084[facility]annCHEM PANEL 2015-03-31 17:59:008.9[facility] DnptbidXGLSBPEEQU0251-59-96 17:59:006.5[facility] LwttafsNCRMQVHJZJ6624-05-63 17:59:0012.5[facility] AtbyoqmOBTXKNZAAY7138-08-47 17:59:0038.7[facility] YyoqrswVGDVAMYFWR5434-08-07 17:59:79845Yiiyeogp [place] KBDFDSAIWL1956-35-24 17:59:004.36[facility] GjsvfwrDXNBPBXXIY2722-83-21 17:59:00 88.7[facility] KqvdbbbKLLKMNPTPW2550-82-73 17:59:00 Test Item Value Reference Range Interpretation Comments MCH (test code = MCH) 28.7 pg 27.0-31.0 [facility] WmslkviNYZWZVOCOP2753-41-22 17:59:0032.3[facility]annHEMATOLOGY 2015-03-31 17:59:009.0[facility] OicaubmWQULSLGBNT4632-37-12 17:59:0014.7[facility] FxeadvdSNRNUJVWBK9717-50-52 17:59:000.1[facility] TqcaylyYMPSTPUVMW5140-63-13 17:59:003.7[facility] PaznpvfQZJLWJQQXR2496-67-57 17:59:002.3[facility] VOMCIPCMJH4341-05-28 17:59:000.3[facility] DrpsgvkDOIXYCWSIN4528-91-30 17:59:000.1 [facility] XbtgqusWQOAFBPJAJ6746-45-09 17:59:001.0[facility]annHEMATOLOGY 2015-03-31 17:59:004.0[facility] LsgtvdaQEBPTDYJPV7166-38-97 17:59:001.9[facility] GxvlqboBSWMROBVUO3515-50-54 17:59:0057.9[facility] ZixofhsHKCZNSURCA5299-33-94 17:59:0035.2[facility] HddkgjzLVVAJWCFKE3129-58-08 17:59:00 Test Item Value Reference Range Interpretation Comments PTT (test code = PTT) 28.8 s 22.9-35.8 [facility] KobkxchVUWCXEJXQF2428-46-40 17:59:00 Test Item Value Reference Range Interpretation Comments PT (test code = PT) 12.8 s 12.0-14.7 [facility] AczhrowLIPFMQNYDE8644-15-54 17:59:000.93[facility] HermannHEMATOLOGY 2015-03-31 17:59:000.80[facility] ETVSZ1079-32-80 17:59:007.0 [facility] XDSTX6545-38-71 17:59:00Negative *NA*(03/31/15 11:59 AM)[facility] SQPAS8240-41-40 17:59:00Negative (03/31/15 11:59 AM) [facility] SXQXW3108-96-91 17:59:00Negative (03/31/15 11:59 AM) [facility] KZVYA6591-89-15 17:59:00Negative (03/31/15 11:59 AM) [facility] ZHCNC4270-27-97 17:59:00Clear (03/31/15 11:59 AM) [facility] MGAMG9469-71-30 17:59:001.002[facility] TMMJI1871-45-93 17:59:001[facility]annCHEM DOZAX7961-79-71 11:42:0084[facility]annCHEM SBPQW4195-08-74 11:42:0088[facility]annCHEM RZEUO0460-09-86 11:42:0029[facility]annCHEM HJCNR0572-39-36 11:42:008.4[facility]annCHEM GHACB5241-81-31 11:42:006.6[facility]annCHEM FVZDQ4880-41-19 11:42:007 [facility]annCHE[facility] KQPFW7656-82-37 11:42:000.9[facility]annCHEM PANEL 2014-08-30 11:42:003.8[facility]annCHEM FIYVX1199-95-19 11:42:008[facility]annCHEM ZKUIL8709-14-80 11:42:0013[facility]annCHEM KMNUY8088-87-52 11:42:000.3[facility]annCHEM HRYJK3400-30-15 11:42:0082[facility]annCHEM HDMTZ8826-25-23 11:42:50677Xluwrqvg HermannCHEM XBYLZ1047-93-92 11:42:004.1 [facility]annCHE[facility] DESFL1785-37-96 11:42:82259Pmyqtplo HermannCHEM PANEL 2014-08-30 11:42:0011.1[facility]annCHEM ZWEBV3894-39-26 11:42:002.8[facility]annCHEM ZLRCP0086-93-36 11:42:008[facility]annCHEM EEBBG7940-43-27 11:42:001.4[facility] KehbwjxEPTRGKNXPS4477-17-99 11:42:0012.2[facility] JSHIHYTYNA6899-35-00 11:42:65740Iyqfvnjb PoepzfcUWHQKCYAHH3375-17-82 11:42:00 90.2[facility] IsfqzdeHPCWBHAKWV1951-98-64 11:42:0036.3[facility] HermannHEMATOLOGY 2014-08-30 11:42:0033.7[facility] AooxyuxHEFQKMSXEM6445-50-32 11:42:00 Test Item Value Reference Range Interpretation Comments MCH (test code = MCH) 30.4 pg 27.0-31.0 [facility] WgguowyXMUREXTGMG9747-09-18 11:42:004.03[facility]annHEMATOLOGY 2014-08-30 11:42:006.2[facility] SjxqrdfCGVBEJRRRA8905-04-66 11:42:009.7[facility] NjwysyaOOMVEXYKVG8585-24-35 11:42:0013.3[facility] JjxpgxdGPWCJYDMBS6301-92-39 11:42:000.4[facility] LtbtypmLALFVMQADS3961-95-36 11:42:002.0[facility] KISJMUHUSQ6408-33-52 11:42:003.3[facility] McjczdmEMGHNEYGNF4151-24-61 11:42:00 53.0[facility] EynmrrjIJZNAJLUXH1260-69-86 11:42:007.5[facility] HermannHEMATOLOGY 2014-08-30 11:42:006.5[facility] OicdoehHOPIPOFGZI9145-84-06 11:42:0032.4[facility] CagjuexAYREDLMOHJ7243-94-20 11:42:000.5[facility] AjzivrtNEVRSERHUK3265-03-69 11:42:000.6[facility] HermannCHEM ARWAJ1832-00-59 11:42:0084[facility] HermannCHEM FXMLF0170-52-01 11:42:0088[facility]annCHEM PHTRJ6142-85-44 11:42:0029 [facility]annCHEM XYERU1151-50-47 11:42:008.4[facility] HermannCHEM PANEL 2014-08-30 11:42:006.6[facility] HermannCHEM DBITY6675-24-09 11:42:007[facility]annCHEM GFIXC5998-94-72 11:42:000.9[facility]annCHEM WRKQU5904-66-28 11:42:003.8[facility]annCHEM UTXQX7535-03-64 11:42:008[facility]annCHEM KYSLM1576-53-08 11:42:0013[facility]annCHEM TKYBJ2207-49-53 11:42:000.3 [facility]annCHEM FNUWW5821-96-45 11:42:0082[facility]annCHEM PANEL 2014-08-30 11:42:87241Cxygfflo HermannCHEM JGDVA9028-94-14 11:42:004.1[facility]annCHEM ZEXYQ5023-23-68 11:42:68801Mwxelhlp HermannCHEM RWTZL2195-18-88 11:42:0011.1[facility]annCHEM JBQRI0171-21-12 11:42:002.8[facility]annCHEM WVBQH9598-34-75 11:42:008[facility]annCHEM PRBPP9600-61-55 11:42:001.4 [facility] VgjlldxXDGMCZLQBR7200-25-78 11:42:0012.2[facility]annHEMATOLOGY 2014-08-30 11:42:09234Oplhllpa FvjjbpbZGHCYBZRQK4715-51-39 11:42:0090.2[facility] ThfvqfwBNWKNREPPV9562-50-31 11:42:0036.3[facility] ZhjjxixMDKOFYWQLO3686-14-86 11:42:0033.7[facility] ScrmcpkMZRBRQFRRF6430-40-96 11:42:00 Test Item Value Reference Range Interpretation Comments MCH (test code = MCH) 30.4 pg 27.0-31.0 [facility] JkdaqsyKOUIQWJPXO6467-70-54 11:42:004.03[facility] HermannHEMATOLOGY 2014-08-30 11:42:006.2[facility] VwbjuxsLUZUTIEULK9232-74-02 11:42:009.7[facility] DluazlsSMKEUXIOIQ3003-29-56 11:42:0013.3[facility] WeyewdnBNMUBSXQHG6486-88-06 11:42:000.4[facility] RlqpxktJSBSEXFLND0239-65-72 11:42:002.0[facility] JWPTWSXECC0613-95-30 11:42:003.3[facility] GifsttaKIZAUKOUQW2997-49-11 11:42:00 53.0[facility] ZodgxcrUBVMQLDRAI0562-41-40 11:42:007.5[facility] HermannHEMATOLOGY 2014-08-30 11:42:006.5[facility] HyftrbyHEEQSXKOYC9075-16-92 11:42:0032.4[facility] CliqtouPBMRAZOOIF5406-21-78 11:42:000.5[facility] DqybwazQFZDAUVVJM4286-63-11 11:42:000.6[facility]annCHEM WRZJN6621-39-43 17:53:0084[facility]annCHEM SNOKR9274-71-98 17:53:008.2[facility]annCHEM AHUYA9848-40-32 17:53:82044 [facility]annCHEM VHSHV9105-67-84 17:53:0010.0[facility]annCHEM PANEL 2014-08-29 17:53:0028[facility]annCHEM VSMKU4877-96-94 17:53:004.0[facility]annCHEM YXPZE7498-65-32 17:53:32144Gkmuikru HermannCHEM BRNMV0698-56-26 17:53:000.9[facility]annCHEM UHYDE8953-51-14 17:53:008[facility]annCHEM OHZNM5500-75-45 17:53:69406Ttifrxkq HermannCHEM IOYVF1338-44-27 17:53:0084 [facility]annCHEM MVPSV6951-99-65 17:53:008.2[facility]annCHEM PANEL 2014-08-29 17:53:28853Qlssquwm HermannCHEM IUFSQ9406-99-47 17:53:0010.0[facility]annCHEM EKHCK1388-37-66 17:53:0028[facility]annCHEM DLCCR4346-20-97 17:53:004.0[facility]annCHEM ZTSHQ7464-90-29 17:53:18795Bhzqyitl HermannCHEM VRTRO0353-00-41 17:53:000.9[facility]annCHEM ZCUSG2649-81-01 17:53:008 [facility]annCHEM BNJKC9604-65-91 17:53:27933Udzxmpiu HermannCHEM PANEL 2014-08-29 15:50:22249Xqjvduou HermannCHEM CEHBU5940-81-69 15:50:22957Upfvugtb HermannCHEM GNPZO7787-26-18 15:50:008.5[facility]annCHEM HFGMI5549-88-62 15:50:22509Aiqpcrug HermannCHEM QNMKI9827-04-97 15:50:00See Note 1(08/29/14 10:50 AM)[facility]annCHEM SFKEB2350-15-40 15:50:000.2[facility] HermannCHEM PANEL 2014-08-29 15:50:0027[facility] HermannCHEM TIVMQ1476-76-69 15:50:96730Tczzjufp HermannCHEM KZWVC1251-07-97 15:50:009[facility] EyptnykMHODUYBYCH9220-71-37 15:50:00 Test Item Value Reference Range Interpretation Comments MCH (test code = MCH) 30.7 pg 27.0-31.0 [facility] QjjpaxzIGCDKLIDJH5201-35-94 15:50:0034.2[facility] HermannHEMATOLOGY 2014-08-29 15:50:0013.7[facility] HpgvgolIENRPLHGIA4157-98-67 15:50:0090.0[facility] DtbugwfLGNEXCYDYY7932-33-77 15:50:0039.8[facility] VgmjovkOGWEFYLXYB0842-48-64 15:50:0013.6[facility] KledvenYPYDTXNOKZ8436-35-85 15:50:004.42[facility] JEXBRGAZUQ4674-70-19 15:50:34566Uchyicrq PysmfvgUVLDZARDJB5563-93-16 15:50:00 10.4[facility] YnxfqetBNPFUHBUMU5498-83-59 15:50:006.6[facility]annHEMATOLOGY 2014-08-29 15:50:002.0[facility] IheiqcuHPMHFWJSQL9303-77-10 15:50:000.4[facility] WqrmrceJWSQZTXLQF0010-12-69 15:50:000.3[facility] AiavzqzKRJTVCWHBL5381-73-66 15:50:000.4[facility] JnnbfbdFYLLDHVAAH2586-23-83 15:50:003.8[facility] JTOHRKTHWG9258-57-38 15:50:003.8[facility] ZlqpajuXTUDLSLBXW9508-55-11 15:50:00 57.9[facility] ZrnkvmrPESPJHLQXV7312-28-90 15:50:006.6[facility]annHEMATOLOGY 2014-08-29 15:50:0031.3[facility] SfajvvtXENPOQBEGX3949-82-61 15:50:001[facility]annCHEM LAZLN8535-54-72 15:50:20680Guflqkvf HermannCHEM QZSKX0302-88-61 15:50:75628Ybqelyal HermannCHEM MARWT4118-52-64 15:50:008.5[facility] HermannCHEM AXBIO6142-93-41 15:50:69054Okzbuudy HermannCHEM DWAYI3449-79-51 15:50:00See Note 1(08/29/14 10:50 AM)[facility]annCHEM TOZUK0753-24-12 15:50:000.2[facility]annCHEM TYMXA0815-05-07 15:50:0027[facility]annCHEM ZIJAH5702-96-85 15:50:93636Pwofetqe HermannCHEM KUCXT0808-94-06 15:50:009[facility] OEKYVKRLFL9158-19-48 15:50:00 Test Item Value Reference Range Interpretation Comments MCH (test code = MCH) 30.7 pg 27.0-31.0 [facility] QonnuhxSHJAHCUEQF4129-34-77 15:50:0034.2[facility]annHEMATOLOGY 2014-08-29 15:50:0013.7[facility] AqvbjtqIINMCMMJEW5378-70-09 15:50:0090.0[facility] RimgsggQXEQYSXAHR4912-38-44 15:50:0039.8[facility] HoyhnzdUHEVEVOVEA5803-98-11 15:50:0013.6[facility] UeedfcnOUJFXNBWKG3624-51-10 15:50:004.42[facility] JPLZIAAJOB6697-95-69 15:50:11395Nrrkpcah KkjhothLXSLBKCJDP7285-99-91 15:50:00 10.4[facility] GprckdaKJPUVVHWPQ7669-99-91 15:50:006.6[facility]annHEMATOLOGY 2014-08-29 15:50:002.0[facility] MukowvdQDIYJCFHGW3804-69-95 15:50:000.4[facility] ZyzzrxxEZBRFUQCMB5927-56-52 15:50:000.3[facility] NjecgkqRHALOPZUVW4080-05-86 15:50:000.4[facility] FswaxoqFGBDHSXFRE0718-64-29 15:50:003.8[facility] HKCBZBVHPF1182-51-17 15:50:003.8[facility] NtqrlucQPPXOROZBO1962-87-12 15:50:00 57.9[facility] YdhpqdcVHCNHCXYLZ4373-31-25 15:50:006.6[facility]annHEMATOLOGY 2014-08-29 15:50:0031.3[facility] TuukmisRUOVIAMZEO3980-69-70 15:50:001[facility] TdzltsxUUBHSAHYRG8935-98-19 17:43:00Negative (08/28/14 12:43 PM)[facility] KGINDJNOUI9155-76-02 17:43:00Negative (08/28/14 12:43 PM)[facility] QYFYFLYHLK2742-19-07 17:43:00Negative (08/28/14 12:43 PM)[facility] FTMKYVDFQX4256-75-32 17:43:00Negative (08/28/14 12:43 PM)[facility] HermannCARDIAC PZAOFWJ8946-18-89 10:35:0014[facility] YxixodqOMYXCVMDLD6700-81-03 10:35:0048.0 [facility] HcntxypAPUUOOTAHO1712-36-96 10:35:000.3[facility]annHEMATOLOGY 2014-08-28 10:35:006.1[facility] GimipxiOMDYLQPLVW5185-79-98 10:35:0039.1[facility] TqaypzvGBJOVHVGGM5242-09-42 10:35:002.7[facility] XxhwmanYWFHTVRQNL8381-65-79 10:35:000.3[facility] PgkpnpwCIKAWUFPAT2052-56-50 10:35:002.2[facility] PLIGTTEYMJ9456-17-66 10:35:006.1[facility] AajcuwsGTMQBBPLSP5369-84-18 10:35:000.7 [facility] JhieppwDCHYQSCGJD3425-91-66 10:35:81656Tcmkebob HermannHEMATOLOGY 2014-08-28 10:35:009.4[facility] RaowywoDJVKHVRVTE3126-97-94 10:35:0013.1[facility] MsadcrkBHNIUFIBGW1273-04-32 10:35:0033.2[facility] TybwdwtECJEGVZOUF8307-39-96 10:35:003.87[facility] QtsrebbKYPKWHTLZB7248-59-14 10:35:005.7[facility] HFQLZDYDNP0334-31-09 10:35:0035.1[facility] OsijsydTIGEJALXIT5749-55-86 10:35:00 11.7[facility] TbefcnpFXGCQVSZLI9225-48-14 10:35:00 Test Item Value Reference Range Interpretation Comments MCH (test code = MCH) 30.2 pg 27.0-31.0 [facility] YmplnlnISAKIWJLGT9656-18-24 10:35:0090.8[facility] HermannTHYROID PANEL 2014-08-28 10:35:003.290[facility] HermannCARDIAC XCLNNVT7694-12-94 10:35:0014 [facility] XmqbslrLZIGBCZZJN3392-09-04 10:35:0048.0[facility]annHEMATOLOGY 2014-08-28 10:35:000.3[facility] VhqvtkuHIFRGTLSOA6934-15-55 10:35:006.1[facility] JjdpqdcQBATEDVEYV8855-64-00 10:35:0039.1[facility] AyubsktYTZHKAURBM6283-65-50 10:35:002.7[facility] JblovumUFZJFXREFR2725-51-71 10:35:000.3[facility] FDVFISMJAO3880-61-46 10:35:002.2[facility] YbqtuquRGCMGSXAGK2820-81-51 10:35:006.1 [facility] UwozhenQYRNFOTYPZ1787-61-10 10:35:000.7[facility]annHEMATOLOGY 2014-08-28 10:35:27858Usxrtwhp IhkefduFTYJYHNMDH5440-18-74 10:35:009.4[facility] FequpgkDEPMYJQYZK0273-14-44 10:35:0013.1[facility] RhsfgwvEPWCONNLVS0457-44-43 10:35:0033.2[facility] TnubnfyYNGHLKFBJP2988-10-27 10:35:003.87[facility] QGZZUBYAPW7515-31-18 10:35:005.7[facility] IuiqopxEIXLMYDGGW1287-23-12 10:35:00 35.1[facility] IifwftuXBKQVVNLHK5155-22-67 10:35:0011.7[facility]annHEMATOLOGY 2014-08-28 10:35:00 Test Item Value Reference Range Interpretation Comments MCH (test code = MCH) 30.2 pg 27.0-31.0 [facility] OokbpefMRUFKGXBPC8693-05-88 10:35:0090.8[facility] HermannTHYROID PANEL 2014-08-28 10:35:003.290[facility] HermannCHEM LUZLF7550-10-55 10:12:000.2[facility] HermannCHEM ORYJH5823-06-51 10:12:0069[facility]annCHEM ORNNW4508-11-51 10:12:006.0[facility] HermannCHEM RWOSM7551-51-47 10:12:0011[facility] HermannCHEM UOEVW0191-51-31 10:12:0012.9[facility] HermannCHEM QBLQZ4996-01-85 10:12:007 [facility]annCHEM VVKGV2435-62-27 10:12:0014[facility]annCHEM PANEL 2014-08-27 10:12:003.0[facility] HermannCHEM LWBDX3536-01-24 10:12:003.0[facility]annCHEM YOZFN8667-57-59 10:12:001.0[facility] HermannCHEM HDUUA7998-61-59 10:12:000.2[facility]annCHEM HRXZH2235-66-14 10:12:0069[facility]annCHEM HWCKD2201-99-55 10:12:006.0[facility] HermannCHEM BFVNZ6653-27-80 10:12:0011 [facility]annCHEM VYJBS2988-91-87 10:12:0012.9[facility] HermannCHEM PANEL 2014-08-27 10:12:007[facility] HermannCHEM NDSWI5802-86-17 10:12:0014[facility]annCHEM OVHIY1037-97-71 10:12:003.0[facility]annCHEM TADDI7403-91-54 10:12:003.0[facility]annCHEM XSQIK3253-35-59 10:12:001.0[facility]annUR[facility] AND KYWNP2614-27-50 19:06:001[facility]UR[facility] AND OVTTY8257-90-88 19:06:001 [facility] NJVRM6698-12-95 19:06:00Negative (08/26/14 2:06 PM) [facility] TDATM3967-34-76 19:06:00Negative (08/26/14 2:06 PM) [facility] OJLNT6905-22-42 19:06:00Negative (08/26/14 2:06 PM) [facility] IDTIE2428-51-75 19:06:00Negative *NA*(08/26/14 2:06 PM) [facility] SJENB9167-51-42 19:06:001.013[facility] AHBRX2663-78-06 19:06:007.0[facility] AND PHQHJ8300-72-64 19:06:00 Clear (08/26/14 2:06 PM)[facility]UR[facility] CELE2982-01-57 19:06:00Negative (08/26/14 2:06 PM)[facility] IKSRO8130-55-08 19:06:001[facility] AND QSYYG3174-22-55 19:06:001[facility] STOOL 2014-08-26 19:06:00Negative (08/26/14 2:06 PM)[facility] STOOL 2014-08-26 19:06:00Negative (08/26/14 2:06 PM)[facility] STOOL 2014-08-26 19:06:00Negative (08/26/14 2:06 PM)[facility] STOOL 2014-08-26 19:06:00Negative *NA*(08/26/14 2:06 PM)[facility] STOOL 2014-08-26 19:06:001.013[facility]UR[facility] AND ANJSQ7282-21-66 19:06:007.0 [facility] TLYWF3429-32-58 19:06:00Clear (08/26/14 2:06 PM) [facility] ZYXS0058-40-44 19:06:00Negative (08/26/14 2:06 PM)[facility]annCARDIAC OGWCCBX3920-63-15 18:54:50852Uhufeowv [facility]annCARDIAC ENZYMES 2014-08-26 18:54:00<0.5[facility]ARDIAC SQQRXFP9279-17-92 18:54:00 <0.02[facility]AC XAXFQBR2212-85-75 18:54:00<0.5[facility]annCHEM XENEB8578-73-31 18:54:55313Gfkrmkfc HermannCHEM UFSKH7846-59-37 18:54:007.7[facility]annCHEM AJXFU6356-40-58 18:54:004.0[facility]annCHEM WXTHW8384-50-18 18:54:0012[facility]annCHEM UUEJC9849-44-35 18:54:0017 [facility]annCHEM JMIIO7851-69-11 18:54:0084[facility]annCHEM PANEL 2014-08-26 18:54:000.2[facility]annCHEM FYREJ0303-76-73 18:54:008[facility]annCHEM XSNKA6721-87-32 18:54:003.7[facility]annCHEM VWUIO3040-82-02 18:54:001.1[facility]annCHEM URQWA4111-60-93 18:54:0080[facility] OLMRUCISRH8318-74-37 18:54:00 Test Item Value Reference Range Interpretation Comments PT (test code = PT) 18.6 s 12.0-14.7 [facility] FpckgvzDYFDFXYYPY7934-98-38 18:54:001.52[facility]annHEMATOLOGY 2014-08-26 18:54:00 Test Item Value Reference Range Interpretation Comments PTT (test code = PTT) 40.7 s 22.9-35.8 [facility]ARDIAC HLCQENJ9789-50-80 18:54:73843Wneqlppn [facility]CARDIAC TXZDAQX6810-13-33 18:54:00<0.5[facility]annCARDIAC VRHEJIL4127-10-54 18:54:00<0.02[facility]annCARDIAC FENZBKM5575-24-62 18:54:00<0.5 [facility]annCHEM INIKQ0510-89-93 18:54:96660Vqlxthig HermannCHEM PANEL 2014-08-26 18:54:007.7[facility]annCHEM CXXEH3875-91-10 18:54:004.0[facility]annCHEM NQLZN4124-45-77 18:54:0012[facility]annCHEM TWOTM2432-97-06 18:54:0017[facility]annCHEM IVAEL2469-05-31 18:54:0084[facility]annCHEM MCVWV1959-20-56 18:54:000.2[facility]annCHEM TGGAS6616-23-33 18:54:008 [facility]annCHEM LDRMP4915-70-10 18:54:003.7[facility]annCHEM PANEL 2014-08-26 18:54:001.1[facility]annCHEM CKKKS1052-66-04 18:54:0080[facility] TewjikzQGZCZLOFCN8840-29-19 18:54:00 Test Item Value Reference Range Interpretation Comments PT (test code = PT) 18.6 s 12.0-14.7 [facility] DpbuuvyCCGLMKEICN6265-50-40 18:54:001.52[facility]annHEMATOLOGY 2014-08-26 18:54:00 Test Item Value Reference Range Interpretation Comments PTT (test code = PTT) 40.7 s 22.9-35.8 [facility] ZhdabxpELCTYVSRNY7740-95-07 12:26:0056.3[facility]annHEMATOLOGY 2014-08-10 12:26:0025.6[facility] AwbzyynJQIKFHEYPZ0323-41-70 12:26:006.7[facility] DbepbdsDCXOPSGPKZ4160-87-51 12:26:0011.1[facility] TfhvawvLQOZHZCXJO4844-34-86 12:26:000.3[facility] BkaimreIHLGALXKEM0207-38-21 12:26:004.0[facility] AJRZUNYSTA6340-94-60 12:26:001.8[facility] WwwqregBHTBPOYZAT9294-15-86 12:26:000.5 [facility] GdjlfzdKGTAUNWGCW8877-87-11 12:26:000.8[facility]annHEMATOLOGY 2014-08-10 12:26:007.0[facility] RupnyduFCNNZXOGTQ9764-45-34 12:26:92736Zprtisli QeihhewCCYJKBFKCF2308-40-71 12:26:009.5[facility] RjgifbxJIQAMONRIV8123-94-25 12:26:00 Test Item Value Reference Range Interpretation Comments MCH (test code = MCH) 30.7 pg 27.0-31.0 [facility] DxiyjacBWOGTOMCEY7711-86-01 12:26:0033.8[facility]annHEMATOLOGY 2014-08-10 12:26:0090.9[facility] VcyfkkqKQHFOZDFJE2148-07-99 12:26:0014.1[facility] QscwiarDKHWVMKMBR3289-07-98 12:26:003.90[facility] VapaqriBQMQYZJPFJ5104-45-92 12:26:0012.0[facility] DeytlpgJPYGPIKMXB2193-74-98 12:26:0035.5[facility] QJMQVBROLR1978-60-72 12:26:0056.3[facility] UgbtrhmCAIJWMODPR2606-14-46 12:26:00 25.6[facility] NbeuhtrIUJRHSTSPF4322-94-77 12:26:006.7[facility]annHEMATOLOGY 2014-08-10 12:26:0011.1[facility] NmbtvebOYPZSCCKUK8241-98-18 12:26:000.3[facility] YqksyppAVZZICTHEM8567-81-72 12:26:004.0[facility] YmvznbmYKMJLJDXGJ7887-17-19 12:26:001.8[facility] XqowperIDXAPWXAYL3400-23-91 12:26:000.5[facility] QOPXSBMEKX5680-93-48 12:26:000.8[facility] WescqlsDYEJAHEPWK4628-08-27 12:26:007.0 [facility] KqdochzPVVBHTXZGM4160-95-10 12:26:98254Htgzqiny HermannHEMATOLOGY 2014-08-10 12:26:009.5[facility] FlvjnuqMGNZMOKFAC4262-15-12 12:26:00 Test Item Value Reference Range Interpretation Comments MCH (test code = MCH) 30.7 pg 27.0-31.0 [facility] XiqsdutFVCPWDPPWG6539-10-67 12:26:0033.8[facility]annHEMATOLOGY 2014-08-10 12:26:0090.9[facility] VqdehmkPGZECUPGZU0740-14-84 12:26:0014.1[facility] HzouecyYEBPYPJJZM2954-88-99 12:26:003.90[facility] GdfelgqAFCSHOZBDC0704-33-01 12:26:0012.0[facility] DnferwiTUVKIMBRBM2141-14-63 12:26:0035.5[facility] CHEM HXMHY9657-44-90 10:11:89572Esqpiksp HermannCHEM UTUNR9763-14-15 10:11:006 [facility]annCHEM XWUMD8510-99-65 10:11:007.8[facility] HermannCHEM PANEL 2014-08-09 10:11:0083[facility]annCHEM SNKAV3812-12-23 10:11:0010.8[facility] HermannCHEM BKSCB3764-63-42 10:11:000.6[facility] HermannCHEM FLJAD9176-74-53 10:11:0024[facility]annCHEM VJONH1687-24-62 10:11:003.8[facility] HermannCHEM JEFGE8814-90-53 10:11:58004Qugzyvyj HermannCHEM LRTEH5387-97-13 10:11:09662 [facility] EltzmqcLDBVQZWMHG0560-30-74 10:11:0045.3[facility]annHEMATOLOGY 2014-08-09 10:11:005.5[facility] KonjuydRIFWLAZQFT9608-96-15 10:11:0039.2[facility] IltedggZIDUABDPFX6648-85-18 10:11:009.5[facility] JiumuumGKKZRLDFSG1121-94-67 10:11:000.5[facility] XodckpnCGKFMBHEEW3562-98-49 10:11:003.0[facility] ZIHUCHFZRG6229-63-42 10:11:000.6[facility] TvikaqaEUBQBBBRDN2098-66-34 10:11:000.4 [facility] LuprptsJSXHUGMQRI3570-68-12 10:11:002.6[facility]annHEMATOLOGY 2014-08-09 10:11:0013.9[facility] OyrugchUILAWVDXAP1088-03-22 10:11:0033.5[facility] GgfnccvLAYQSLICRH8413-13-54 10:11:003.60[facility] NshqakpHHEXBCJEIE2631-59-76 10:11:0011.1[facility] FlhdtfuCNBBLMYMQU9000-80-98 10:11:006.7[facility] OPIZSSKAEF4267-28-44 10:11:009.8[facility] OqwarciRXEFOUDHEB3819-93-59 10:11:00 Test Item Value Reference Range Interpretation Comments MCH (test code = MCH) 30.8 pg 27.0-31.0 [facility] PjdycijLKWEMMYZRE7119-58-61 10:11:14934Zggmdhyt [facility]annHEMATOLOGY 2014-08-09 10:11:0033.0[facility] HcudrjdXVFBHORCRE8027-91-05 10:11:0091.8[facility] HermannCHEM DDPPE3428-16-11 10:11:20024Zcwcfdyg HermannCHEM UOIDH2323-22-69 10:11:006[facility] HermannCHEM GMOUX6668-90-59 10:11:007.8[facility] HermannCHEM BQOUS9480-34-24 10:11:0083[facility] HermannCHEM ZFBYK4832-63-94 10:11:0010.8 [facility]annCHEM JPMYJ9030-23-29 10:11:000.6[facility] HermannCHEM PANEL 2014-08-09 10:11:0024[facility]annCHEM TGVFB8710-46-65 10:11:003.8[facility] HermannCHEM FRQVG8348-13-89 10:11:19562Dpclbhyr HermannCHEM FVYNE3704-90-94 10:11:04755Zjinucty GcbezuuLDOYKNYUEV1267-38-41 10:11:0045.3[facility] EKIPSROZNH3208-44-20 10:11:005.5[facility] SlayfolQDCMUGPUFF1663-87-50 10:11:00 39.2[facility] WvjippkJOZAXEXQWC3889-86-22 10:11:009.5[facility]annHEMATOLOGY 2014-08-09 10:11:000.5[facility] XlbftgmIGBAGWBNFE5888-06-48 10:11:003.0[facility] CpfilfoNTDCWGYQIA7755-08-56 10:11:000.6[facility] HlpugqxNFVYIGGMLJ8102-04-05 10:11:000.4[facility] KcrcumzFNOWVEITMH9419-68-92 10:11:002.6[facility] ZQXPFMFLUA3495-77-71 10:11:0013.9[facility] GuuevbmGQJNTEYHJA8409-56-32 10:11:00 33.5[facility] VcmjnzjUPYLKVEHGD8527-70-52 10:11:003.60[facility]annHEMATOLOGY 2014-08-09 10:11:0011.1[facility] HnefekoZDHYILWTIQ5593-19-19 10:11:006.7[facility] ZzfryizEUANIKSWCI3793-40-59 10:11:009.8[facility] YhgmdwwUNHVKCUJLV6539-96-33 10:11:00 Test Item Value Reference Range Interpretation Comments MCH (test code = MCH) 30.8 pg 27.0-31.0 [facility] KtxlbldJOOWKXFYYP5606-77-75 10:11:58356Zudzwevk HermannHEMATOLOGY 2014-08-09 10:11:0033.0[facility] UbctqdhSWBVGMAWKU8366-39-33 10:11:0091.8[facility] YflbwbmUGNXAASBTZWN3139-95-63 11:45:54912Mbmrghyl BiipvqsDQHPWTNDERHE6915-99-52 11:45:73593Qwbbntid BqopzuqAZYRWFSOBRYO6893-91-32 11:45:007.6[facility] IGUWEUQRILSP3198-58-34 11:45:003.9[facility] PsdosniOWMVAAHTPIGS5849-38-69 11:45:0097[facility] EuxqiguXEBBXJVWJKIV2047-39-65 11:45:000.8[facility] LBYTFOXKUJBH2046-20-64 11:45:006[facility] RklynqsPCTSWTGXVQHU4525-67-74 11:45:00 79[facility] KpdkmqvLTEUUUUDLHDG4337-43-84 11:45:0025[facility]annELECTROLYTES 2014-08-08 11:45:0010.9[facility] GuosbulAICQZYCLFZ8014-91-83 11:45:00 Test Item Value Reference Range Interpretation Comments MCH (test code = MCH) 30.8 pg 27.0-31.0 [facility] TnilgydBSJEWTOPJJ6112-99-90 11:45:0033.9[facility]annHEMATOLOGY 2014-08-08 11:45:0091.0[facility] OmzujbnODMWOOOSWL8378-30-37 11:45:0032.9[facility] QhisqrpJJJAVTZBFA9287-38-10 11:45:0011.1[facility] PtojtibIYHKLIUQBO1917-67-38 11:45:009.9[facility] JempqpgFZSCVDYBFF8298-80-19 11:45:57364Lyllnhpb [facility] HQVPYLYUNW1683-03-56 11:45:0014.1[facility] MdrsxrrQSNUHPOUUW4857-52-42 11:45:00 6.4[facility] JqwrljpCSCWMLLEMK8100-79-13 11:45:003.61[facility]annHEMATOLOGY 2014-08-08 11:45:000.2[facility] TkcmkutZKAACOLDTV3529-29-29 11:45:006.1[facility] FgukcuvMHRBIYDNIF8992-58-14 11:45:003.5[facility] UhxptqkBLQWGMYDIX7397-92-91 11:45:003.8[facility] AodvqdvUZYDFBNLXQ8853-05-95 11:45:002.2[facility] DAVIPHZDVB9085-36-53 11:45:000.6[facility] OvxtfbpCFDTNWSPTN9003-37-13 11:45:000.4 [facility] KborjhnMOTTBXODMO1409-50-17 11:45:0034.8[facility]annHEMATOLOGY 2014-08-08 11:45:0054.7[facility] BhecvtzRTBKJFTAXJLQ5456-09-27 11:45:65336 [facility] AswiznhWXKDDJCURUOO5546-95-25 11:45:28464Hempjgep HermannELECTROLYTES 2014-08-08 11:45:007.6[facility] VytlsbtYXVSBIUYVHSE3104-41-67 11:45:003.9[facility] UcpfnbmNCNRGDNLUWJT4314-88-40 11:45:0097[facility] YysedfaQNPPJIYJRZDO8467-15-52 11:45:000.8[facility] BwcevxaSKKVLPDZKQFM4033-98-46 11:45:006[facility] VUDSDAVWWODR3135-30-09 11:45:0079[facility] BazncsuIDBEOQSETPVN2339-25-35 11:45:00 25[facility] SfnilooHOJNXMCHXAGO4477-15-49 11:45:0010.9[facility]annHEMATOLOGY 2014-08-08 11:45:00 Test Item Value Reference Range Interpretation Comments MCH (test code = MCH) 30.8 pg 27.0-31.0 [facility] VpbzacmAXWMKMUGOH2882-33-19 11:45:0033.9[facility] HermannHEMATOLOGY 2014-08-08 11:45:0091.0[facility] NccvaacQEZEIWKTHO4610-48-42 11:45:0032.9[facility] YfasjbmXSIWBQPLOG2047-70-20 11:45:0011.1[facility] HhoubcnYDDTIUWNAP6781-71-01 11:45:009.9[facility] OphpqklWWXCGWMAUT9705-20-24 11:45:10070Lkzahgwo [facility] HXJPULGLIV8002-43-84 11:45:0014.1[facility] CeyysybWFFNJYEHJP5076-23-94 11:45:00 6.4[facility] BjhezpcCFSVRAHHDO5024-12-73 11:45:003.61[facility]annHEMATOLOGY 2014-08-08 11:45:000.2[facility] VxwaurhCWMYFYEMJA6028-77-31 11:45:006.1[facility] XkhohktEDSQGFAKZN8745-90-58 11:45:003.5[facility] XmqqfdfDDOMOWRNPR2230-62-22 11:45:003.8[facility] OxabnxpQQUQFHTMBV9481-87-35 11:45:002.2[facility] PHNQXTUTJH1037-48-09 11:45:000.6[facility] YyjbfzzIWZSJEDDYH5940-44-21 11:45:000.4 [facility] CprspqaZBSFEKTSNF6468-74-74 11:45:0034.8[facility]annHEMATOLOGY 2014-08-08 11:45:0054.7[facility] BnpekvlMZEBAHYUAALZ6155-92-62 11:00:0012.2 [facility] NdbquxtQKKWUHGOIQXI1943-13-98 11:00:0097[facility] HermannELECTROLYTES 2014-08-07 11:00:000.8[facility] LcwpvlcKSSYGDCFNYNB0202-19-66 11:00:008[facility] RqyiyioDAUZOUXWOGAY8399-64-91 11:00:72699Njcjebwi JgyfffpIDKJHJJQIMFL7082-01-09 11:00:71146Ocxmljay FjiaqquEXWXBYBETRNI1279-74-47 11:00:004.2[facility] GSAPVAWQWZPY5259-09-85 11:00:008.2[facility] MiukjwvPQQGCMDBCKRX7703-23-95 11:00:0025[facility] EnkggguMPRAQOAHPMKW3556-33-76 11:00:0080[facility] DEASISVTIU8730-50-60 11:00:000.1[facility] QodtdbhUOIQCMJDALLB0006-67-50 11:00:00 12.2[facility] FywvhrmGLVXBDWUESTP5260-06-35 11:00:0097[facility] NCMXXOWAJRWC1891-40-76 11:00:000.8[facility] SdbtdktYVIECAIMBGXS8319-31-85 11:00:008[facility] EtvxcxxFACSEQBUUAPA9291-12-53 11:00:36273Mnroxgdd [facility] JIHGLSYSVQHI0124-73-09 11:00:48060Dafjowuk TtgpjdpVGSQJVHZSMRA0977-84-13 11:00:004.2[facility] JlizwbjZTDDTMNFFTXG2049-60-89 11:00:008.2[facility] ONVFHNDCSDZW9315-27-33 11:00:0025[facility] ZbgvbgwGQDPKMDBZXQK5974-49-62 11:00:00 80[facility] MixujpsSAFBPFNCNL3805-79-11 11:00:000.1[facility]annUR[facility] VEGJH7381-64-81 16:41:003[facility] AZQGO4534-21-25 16:41:001 [facility] SPVAM3654-83-65 16:41:00Negative (08/06/14 11:41 AM) [facility] RPVVX3979-11-68 16:41:006.0[facility] SIKFW4858-44-34 16:41:00Negative (08/06/14 11:41 AM)[facility] VOVHG6561-37-70 16:41:00Negative *NA*(08/06/14 11:41 AM)[facility] KJEEA3696-85-37 16:41:00Negative (08/06/14 11:41 AM)[facility] COIBF4111-34-40 16:41:001.013[facility] TQMKD0305-82-85 16:41:00 Clear (08/06/14 11:41 AM)[facility] CGOX9837-90-37 16:41:00Negative (08/06/14 11:41 AM)[facility] TQAOT6842-20-89 16:41:003[facility] JCBDW0644-66-15 16:41:001[facility] STOOL 2014-08-06 16:41:00Negative (08/06/14 11:41 AM)[facility] STOOL 2014-08-06 16:41:006.0[facility] NXEIF5387-16-42 16:41:00Negative (08/06/14 11:41 AM)[facility] RIMME6715-16-83 16:41:00Negative *NA*(08/06/14 11:41 AM)[facility] ZGMMI9577-07-22 16:41:00Negative (08/06/14 11:41 AM)[facility] OUBSF9121-08-84 16:41:001.013 [facility] OSCOF2334-20-36 16:41:00Clear (08/06/14 11:41 AM) [facility] TDEV6382-60-42 16:41:00Negative (08/06/14 11:41 AM)[facility] NodtjknOOWTVUHROD8116-84-16 11:13:000.1[facility] KwgbwqoRYFFSRDCEW0165-11-09 11:13:001.06[facility] AjbiwwnTPUFDNGXGM4528-22-94 11:13:00 Test Item Value Reference Range Interpretation Comments PT (test code = PT) 13.8 s 12.0-14.7 [facility] KdifomaBNTBGNAGOX0156-82-32 11:13:000.1[facility]annHEMATOLOGY 2014-08-06 11:13:001.06[facility] FamtvnsGXEOVOMFYH8449-64-71 11:13:00 Test Item Value Reference Range Interpretation Comments PT (test code = PT) 13.8 s 12.0-14.7 [facility]annCHEM CWTBD2444-71-42 19:53:007.6[facility] HermannCHEM PANEL 2014-08-05 19:53:009[facility]annCHEM IMAAB5250-52-40 19:53:004.5[facility]annCHEM HXBFL1511-34-09 19:53:0014[facility]annCHEM TRUMZ1977-12-28 19:53:0084[facility]annCHEM AKRRH0522-13-16 19:53:000.2[facility]annCHEM BMJTS6559-71-25 19:53:003.1[facility]annCHEM SSFVO2513-05-98 19:53:001.5 [facility]annCHEM LMOVN7115-67-66 19:53:0012[facility]annHEMATOLOGY 2014-08-05 19:53:000.1[facility] OdxkvvzDITKGRUBPO2928-54-21 19:53:00 Test Item Value Reference Range Interpretation Comments PT (test code = PT) 12.3 s 12.0-14.7 [facility] BookypzUPZMGQRQBH2258-13-61 19:53:00 Test Item Value Reference Range Interpretation Comments PTT (test code = PTT) 32.0 s 22.9-35.8 [facility] VudahklIHAPLLLJBL1865-49-55 19:53:000.92[facility] HermannCHEM PANEL 2014-08-05 19:53:007.6[facility]annCHEM VELLW0665-34-14 19:53:009[facility]annCHEM JWBEG1819-22-38 19:53:004.5[facility]annCHEM ZTWFP9430-55-58 19:53:0014[facility]annCHEM ATYBA3611-95-81 19:53:0084[facility]annCHEM CDERD6769-49-17 19:53:000.2[facility]annCHEM NOYPC4191-09-48 19:53:003.1 [facility]annCHEM CTCMD3530-04-00 19:53:001.5[facility]annCHEM PANEL 2014-08-05 19:53:0012[facility] CngkokqOWHEKUEDNP2249-27-26 19:53:000.1[facility] UebikarUWBDOJVALQ9201-63-08 19:53:00 Test Item Value Reference Range Interpretation Comments PT (test code = PT) 12.3 s 12.0-14.7 [facility] JqfxgbpKLFRKHYVIZ5196-29-56 19:53:00 Test Item Value Reference Range Interpretation Comments PTT (test code = PTT) 32.0 s 22.9-35.8 [facility] OzjykmsCDMITTFOZZ5646-02-88 19:53:000.92[facility] HermannCHEM PANEL 2014-04-04 18:07:0072[facility]annCHEM PKSAN9263-86-82 18:07:67491Zqdhuxxq OrjnvvsDJUKCMSSXOCC8817-07-03 18:07:003.6[facility] PuvxxfrZORCOZEFAFOS5663-78-14 18:07:49100Waiubiec IyudjsmSRWIZYFHWNHB2836-81-17 18:07:83234Ajfkwjou [facility] EEGBCXCPZFLI6347-22-78 18:07:0028[facility] WvrtmgzDYDAROKQFBWY2553-87-94 18:07:00 97[facility] WxnhhhvPYWRBSWOXOFL0014-96-51 18:07:007.5[facility] HermannELECTROLYTES 2014-04-04 18:07:0013[facility] OjpfainWPGMAGFCHPBZ3924-17-37 18:07:000.2[facility] SgsnegmHCUSGKZQAPDM3295-64-68 18:07:008.4[facility] GvfipcaUQSZKYTJXYLC4378-51-98 18:07:000.8[facility] ThmpokvDCHVULFYQKTM6355-27-80 18:07:0022[facility] TQOXKJZZUUKC9134-56-91 18:07:004.1[facility] OmwhemyFROEAHYAWDTW5232-37-05 18:07:0087[facility] CqidximQYRBNDFDTAYI7542-82-51 18:07:0076[facility] NXUZTPASCZOL1751-94-77 18:07:008[facility] JwdtnfnSHGRIXOYFIXX5361-79-54 18:07:00 9.6[facility] DuzcmctYYPDVMDLNYNX3405-59-94 18:07:001.2[facility] GYMKUTSUAJYM3793-94-10 18:07:0010[facility] WqxxlcuXAGPHGSAGAFL0520-83-10 18:07:00 3.4[facility] RlzqekiLLSLKLYZIX3028-88-21 18:07:0033.1[facility]annHEMATOLOGY 2014-04-04 18:07:00 Test Item Value Reference Range Interpretation Comments MCH (test code = MCH) 30.4 pg 27.0-31.0 [facility] RlkyufoCXQZIWZXGC0534-16-77 18:07:0013.8[facility]annHEMATOLOGY 2014-04-04 18:07:0091.9[facility] XpxqlxeLZCDPLLGBV8645-31-70 18:07:0036.0[facility] EdyltkoBNQCFVAMSB2499-07-39 18:07:009.0[facility] WdnohyvINYKCSXYMC7090-21-08 18:07:27003Eomnvrbl MfghydxPHITJIXPXZ6191-90-25 18:07:003.92[facility] CHFVZFWWWQ6359-57-11 18:07:004.6[facility] AvegpgvPUIIMEVCYA4997-14-35 18:07:00 11.9[facility] EefipelQCNYQNDEUE0164-08-53 18:07:000.1[facility]annHEMATOLOGY 2014-04-04 18:07:0054.4[facility] HdyiynzYRIKZWECVW5015-26-93 18:07:0036.0[facility] HxbrdwpVDWECMNNAH0158-58-58 18:07:007.1[facility] WzapvbvTUNKDNVXOD0625-66-05 18:07:001.7[facility] MkstdtxCTFTGYHURR6272-10-87 18:07:000.8[facility] WGTRCCBBPB9208-53-17 18:07:002.5[facility] MzqdetmTKPUSIRXRF1229-99-22 18:07:000.3 [facility] RwbpqcbTNVQYHGSSS6951-09-44 18:07:001.6[facility]UR[facility] STOOL 2014-04-04 18:07:00None Seen (04/04/14 12:07 PM)[facility] STOOL 2014-04-04 18:07:00None Seen (04/04/14 12:07 PM)[facility] STOOL 2014-04-04 18:07:00None Seen (04/04/14 12:07 PM)[facility] STOOL 2014-04-04 18:07:00None Seen (04/04/14 12:07 PM)[facility] STOOL 2014-04-04 18:07:00Negative (04/04/14 12:07 PM)[facility] STOOL 2014-04-04 18:07:00Negative (04/04/14 12:07 PM)[facility] STOOL 2014-04-04 18:07:00Negative (04/04/14 12:07 PM)[facility] STOOL 2014-04-04 18:07:00 Test Item Value Reference Range Interpretation Comments UA pH (test code = UA pH) 6.0 1 5.0-8.0 [facility] AADZH5188-44-19 18:07:000.2[facility] XNWIZ7138-32-94 18:07:00<=1.005 *NA*(04/04/14 12:07 PM)[facility] XJSGQ4391-04-55 18:07:00Negative (04/04/14 12:07 PM)[facility] YDJZM5162-64-18 18:07:00Negative *NA*(04/04/14 12:07 PM)[facility] WEYHL2122-39-58 18:07:00Negative *NA*(04/04/14 12:07 PM)[facility] BYCPC6994-78-65 18:07:00Small *ABN*(04/04/14 12:07 PM)[facility] DOTZN1266-84-16 18:07:00Yellow *NA*(04/04/14 12:07 PM)[facility] FOPDS7310-83-39 18:07:00Clear (04/04/14 12:07 PM)[facility] CHEM 2014-04-04 18:07:00Negative (04/04/14 12:07 PM)[facility]annCHEM PANEL 2014-04-04 18:07:0072[facility] HermannCHEM LZOOC8869-51-29 18:07:93015Hmfsiyee DukkgriWJYBTOGTTBLG7681-87-69 18:07:003.6[facility] AdbnzpmDFMMQDQIAZMY5661-70-65 18:07:18017Ikvkdmcf YudpeemYSPBAZORJOYR8781-93-67 18:07:32237Rfjsgocd [facility] EWNXGRCFREIS7821-64-00 18:07:0028[facility] WbnizouPZSWARHEIFFP9930-55-49 18:07:00 97[facility] VmoyctpTNJDCLKNKUDW1909-20-09 18:07:007.5[facility] HermannELECTROLYTES 2014-04-04 18:07:0013[facility] GgbsjvwOMBIJCWUKNXX5077-17-81 18:07:000.2[facility] AzetjtvMWYLAWBLTBEV1396-46-89 18:07:008.4[facility] KxcgtkgMACCTYKZSPDP0504-68-97 18:07:000.8[facility] FqqvkjcFFJGKTTWJCYG1723-60-74 18:07:0022[facility] HHUTMLFKRPIN3379-02-35 18:07:004.1[facility] IwtupslYRDJCQETQDCK2111-48-28 18:07:0087[facility] CixxyenVFBSXVGWYLKA3825-19-61 18:07:0076[facility] NCVAHDYQVJEI8075-72-65 18:07:008[facility] KeehnsiMEGVJFLBFDFQ4800-45-33 18:07:00 9.6[facility] NjnxqqfBVDTELSWNUCG5564-62-80 18:07:001.2[facility] PEHESURUDHNM7618-83-83 18:07:0010[facility] CrbokzzYYPSQOODEDTV1157-00-53 18:07:00 3.4[facility] YlxvyglZUSSPHEPOZ5920-55-85 18:07:0033.1[facility]annHEMATOLOGY 2014-04-04 18:07:00 Test Item Value Reference Range Interpretation Comments MCH (test code = MCH) 30.4 pg 27.0-31.0 [facility] MshamjhRFULFQJNCW1113-34-74 18:07:0013.8[facility]annHEMATOLOGY 2014-04-04 18:07:0091.9[facility] YudetddRYGEFGUHSK8116-29-83 18:07:0036.0[facility] RrrzanyZRVZGNLLZQ2972-77-45 18:07:009.0[facility] UgqtgnmEUDBETWLAI0463-62-81 18:07:01262Dinanwbo YfcjixxSLDCEXFPOC0275-47-12 18:07:003.92[facility] MXPEQEDAJA8994-24-71 18:07:004.6[facility] TsyklzoVKRPWRCQVG2220-37-45 18:07:00 11.9[facility] RcpjfmhZFAJDUQYVR6903-90-49 18:07:000.1[facility]annHEMATOLOGY 2014-04-04 18:07:0054.4[facility] DbutiquVOOKGBDFVI0198-25-86 18:07:0036.0[facility] MlbtmctKCAKETNFHQ0575-72-73 18:07:007.1[facility] PhwlaknJUOZKXFRQS8035-26-57 18:07:001.7[facility] EaawpxzWESPGIESYD6217-73-93 18:07:000.8[facility] CDCLMWDYGG3274-70-17 18:07:002.5[facility] AdysfagRUFPNZXVAT2780-19-74 18:07:000.3 [facility] QdiliwqGGKXETGQTS3044-98-98 18:07:001.6[facility] STOOL 2014-04-04 18:07:00None Seen (04/04/14 12:07 PM)[facility] STOOL 2014-04-04 18:07:00None Seen (04/04/14 12:07 PM)[facility] STOOL 2014-04-04 18:07:00None Seen (04/04/14 12:07 PM)[facility] STOOL 2014-04-04 18:07:00None Seen (04/04/14 12:07 PM)[facility] STOOL 2014-04-04 18:07:00Negative (04/04/14 12:07 PM)[facility] STOOL 2014-04-04 18:07:00Negative (04/04/14 12:07 PM)[facility] STOOL 2014-04-04 18:07:00Negative (04/04/14 12:07 PM)[facility] STOOL 2014-04-04 18:07:00 Test Item Value Reference Range Interpretation Comments UA pH (test code = UA pH) 6.0 1 5.0-8.0 [facility] GDVWV7630-02-59 18:07:000.2[facility] JZNIJ4182-65-56 18:07:00<=1.005 *NA*(04/04/14 12:07 PM)[facility] CJPTB5975-28-61 18:07:00Negative (04/04/14 12:07 PM)[facility] ZWKPF2023-36-87 18:07:00Negative *NA*(04/04/14 12:07 PM)[facility] DBMGR5420-94-43 18:07:00Negative *NA*(04/04/14 12:07 PM)[facility] XEQTB5874-52-47 18:07:00Small *ABN*(04/04/14 12:07 PM)[facility] PGAFB3863-55-92 18:07:00Yellow *NA*(04/04/14 12:07 PM)[facility] GCYNN3903-59-16 18:07:00Clear (04/04/14 12:07 PM)[facility] CHEM 2014-04-04 18:07:00Negative (04/04/14 12:07 PM)[facility] HermannBODY FLUIDS 2011-01-29 10:40:08497Esfytvxf HermannBODY MMWBSV4851-89-42 10:40:0023[facility] HermannBODY OHHMDJ4772-72-36 10:40:0054[facility]annBODY DDJWJF5820-30-56 10:40:00Colorless (01/29/2011 04:40:00)[facility]annBODY AFITLD9829-05-43 10:40:00Clear (01/29/2011 04:40:00)[facility]annBODY OQXHXT6681-13-07 10:40:000[facility]annBODY JTVTFV9647-81-79 10:40:001[facility]annBODY FPIUVU2946-49-10 10:40:00Colorless (01/29/2011 04:40:00)[facility]annBODY QBPTHO2294-67-46 10:40:00 Test Item Value Reference Range Interpretation Comments Tube Num CSF (test code = Tube Num CSF) 1 1 [facility] ZbhkthcRPIWJWCCSL3378-97-77 10:40:00Non Reactive (01/29/2011 04:40:00) [facility]annBODY YYUJCN1969-42-75 10:40:61060Jxhpiyvq HermannBODY FLUIDS 2011-01-29 10:40:0023[facility]annBODY OPWKRP7012-51-54 10:40:0054[facility]annBODY KHIKYP9234-52-76 10:40:00Colorless (01/29/2011 04:40:00)[facility]annB[facility] NTYFDL9523-23-64 10:40:00Clear (01/29/2011 04:40:00)[facility] BODY BQZZLE3105-48-46 10:40:000[facility]annBODY FFDCST6295-53-21 10:40:001 [facility]annBODY JBJLPW9517-77-70 10:40:00Colorless (01/29/2011 04:40:00) [facility]annB[facility] TBYZKA5491-55-82 10:40:00 Test Item Value Reference Range Interpretation Comments Tube Num CSF (test code = Tube Num CSF) 1 1 [facility] HeeiktlJJTJTZIWXC6314-94-31 10:40:00Non Reactive (01/29/2011 04:40:00) [facility] BRAIN AND PITUITARY WO/WCLINICAL INDICATION: R51 Headache, visual disturbance.MODALITY: Siemens Skyra 3.0 Elenita MRITECHNIQUE: Multiplanar SE, FSE and inversion recovery pulse sequences of the brain were performed without contrast enhancement. High-resolution coronal and sagittal T1 and T2 imaging is obtained through the pituitary gland. Diffusion weighted imaging was utilized. IV contrast, 20 ml gadolinium are injected IV and post- contrast T1 axial and coronal images obtained. Axial FLAIR and postcontrast T1-weightedimaging are obtain through the entire brain.IMPRESSION:1. Mildly [...] are normal. There are normal flow voids inthe carotid arteries and the cavernous sinuses. The [...]
[2020-10-11] MEDS ORDERED: NA CHLORIDE 0.9% 250 ML ONE (17:10)
[2020-10-11] MEDS ORDERED: NOREPINEPHRINE 4 MG/4 ML VIAL ONE (17:10)
--- NOTE | 2020-10-11 17:44 | RAD REPORT ---
EXAM DESCRIPTION: USExtremity Venous Uni Ltd10/11/2020 5:11 pm CLINICAL HISTORY: Right arm pain COMPARISON: None FINDINGS: Echogenic material consistent with thrombus is present within mid and distal right brachia l vein. The right internal jugular, right subclavian, right cephalic, right axillary, right brachial, right right ulnar and right radial veins are generally compressible and demonstrate augmentation. Doppler d emonstrates good flow. IMPRESSION: Right brachial vein thrombus
[2020-10-11 21:12] LABS: Absolute Lymphocytes (CBC) 2.5 K/uL (0.7-4.9); Basophils % 0.6 % (0-1.3); Hematocrit 37.6 % (36.0-45.0); Lymphocytes % 45.6 % (15.3-44.8); MPV 9.1 fL (7.6-11.3); RBC Red Blood Cell Count 4.25 M/uL (3.86-4.86)
[2020-10-11 21:15] LABS: Protime INR 0.88
[2020-10-11 21:27] LABS: ALT/SGPT 17 U/L (12-78); AST/SGOT 11 U/L (15-37); Albumin 3.6 g/dL (3.4-5.0); Alkaline Phosphatase 85 U/L (45-117); BUN Blood Urea Nitrogen 5 mg/dL (7-18); Bicarbonate 28 mmol/L (21-32); Bilirubin Total 0.2 mg/dL (0.2-1.0); Glucose Level 96 mg/dL (74-106); Potassium 3.8 mmol/L (3.5-5.1); Protein, Total 7.3 g/dL (6.4-8.2); Sodium Level 144 mmol/L (136-145)
[2020-10-11] MEDS ORDERED: APIXABAN 5 MG TABLET ONE (21:43)
--- NOTE | 2020-10-11 21:55 | ER ---
Nurse's Notes [facility] Name: Luis Felipe Nova Age: 40 yrs Sex: Female : 1980 Arrival Date: 10/11/2020 Time: 14:35 Bed External Waiting Private MD: Diagnosis: Deep Vein Thrombosis, Right Upper Extremity Presentation: 10/11 15:42 Chief complaint: Patient states: "I had a colonoscopy done and where the IV was it's aa5 tender and red and I think it's a blood clot because I've had one before". Right FA noted to be with redness and warm to the touch. Coronavirus screen: At this time, the client does not indicate any symptoms associated with coronavirus-19. Ebola Screen: Patient negative for fever greater than or equal to 101.5 degrees Fahrenheit, and additional compatible Ebola Virus Disease symptoms. Initial Sepsis Screen: Does the patient meet any 2 criteria? No. Patient's initial sepsis screen is negative. Does the patient have a suspected source of infection? No. Patient's initial sepsis screen is negative. Risk Assessment: Do you want to hurt yourself or someone else? Patient reports no desire to harm self or others. Onset of symptoms was October 2020. 15:42 Method Of Arrival: Ambulatory aa5 15:42 Acuity: BRIANNA 4 aa5 Historical: - Allergies: 15:42 Reglan; aa5 15:42 Sulfa (Sulfonamide Antibiotics); aa5 - PMHx: 15:42 "cysts on thyroid/possible cancer on thyroid"; Endometrosis; Hashimotos; Migraines; aa5 - Immunization history:: Client reports having NOT received the Covid vaccine. - Social history:: Smoking status: Patient denies any tobacco usage or history of. Vital Signs: 15:42 BP 129 / 91; Pulse 88; Resp 16 S; Temp 97.8(TE); Pulse Ox 99% on R/A; Weight 100.7 kg aa5 (R); Height 5 ft. 11 in. (180.34 cm) (R); 22:05 BP 126 / 83; Pulse 72; Resp 18; Pulse Ox 100% on R/A; oe 15:42 Body Mass Index 30.96 (100.70 kg, 180.34 cm) aa5 ED Course: 14:35 Patient arrived in ED. mr 15:42 Arm band placed on. aa5 15:43 Triage completed. aa5 17:11 Extremity Venous Uni Ltd US In Process Unspecified. EDMS 19:02 Rafa Brooks MD is Attending Physician. 7 19:11 Carri Miller, RN is Primary Nurse. lp1 21:52 Lorrie Zelaya MD is Referral Physician. 7 Administered Medications: 21:20 Drug: Eliquis (apixaban) 10 mg Route: PO; bb Outcome: 21:54 Discharge ordered by . 7 22:37 Patient left the ED. bb Signatures: Dispatcher [employer] EDHI HerbertVicky mr Ginger Salazar, RN RN bb Alona Hernandez RN RN aa5 Carri Miller, RN RN lp1 Nahum Ramos oe Rafa Brooks MD MD [facility] Corrections: (The following items were deleted from the chart) 15:42 15:42 PMHx: endomitriosis; aa5 aa5 15:44 15:42 Chief complaint: Patient states: "I had a colonoscopy done and where the IV was aa5 it's tender and red and I think it's a blood clot because I've had one before" aa5
--- NOTE | 2020-10-11 21:55 | EDPHYS ---
Physician Documentation [facility] Name: Luis Felipe Nova Age: 40 yrs Sex: Female : 1980 Arrival Date: 10/11/2020 Time: 14:35 Bed External Waiting Private MD: TOR Physician Rafa Brooks HPI: 10/11 19:35 This 40 yrs old Female presents to ER via Ambulatory with complaints of Arm mh7 Swelling. 19:35 The patient or guardian complains of swelling. The complaints affect the palmar aspect mh7 of right forearm. Context: The problem was sustained at an unknown location, resulted from Suspect due to IV placement. 19:35 Onset: The symptoms/episode began/occurred yesterday. mh7 19:35 Treatment prior to arrival includes: no previous treatment. Modifying factors: The mh7 symptoms are alleviated by nothing. the symptoms are aggravated by Touching the area. Associated signs and symptoms: Pertinent positives: erythema, pain, swelling, warmth, Pertinent negatives: decreased range of motion, deformity, fever, nausea, numbness, tingling, vomiting, weakness. Severity of symptoms: At their worst the symptoms were mild, earlier today, in the emergency department the symptoms are unchanged. The patient has experienced a previous episode, approximately 7 years ago. Patient reports right forearm swelling, redness, pain since having an IV placed yesterday for procedure. She reports a similar history in the past about 7 years ago was diagnosed with a deep vein thrombosis at that time and was on a course of anticoagulants but currently does not take any anticoagulant medication. She denies any headache, chest pain, abdominal pain, shortness of breath, fever, cough, nausea, vomiting, dizziness, numbness/tingling, or focal weakness.. Historical: - Allergies: 15:42 Reglan; aa5 15:42 Sulfa (Sulfonamide Antibiotics); aa5 - PMHx: 15:42 "cysts on thyroid/possible cancer on thyroid"; Endometrosis; Hashimotos; Migraines; aa5 - Immunization history:: Client reports having NOT received the Covid vaccine. - Social history:: Smoking status: Patient denies any tobacco usage or history of. ROS: 19:35 Constitutional: Negative for fever, chills, and weight loss, Eyes: Negative for injury, mh7 pain, redness, and discharge, ENT: Negative for injury, pain, and discharge, Neck: Negative for injury, pain, and swelling, Cardiovascular: Negative for chest pain, palpitations, and edema, Respiratory: Negative for shortness of breath, cough, wheezing, and pleuritic chest pain, Abdomen/GI: Negative for abdominal pain, nausea, vomiting, diarrhea, and constipation, Back: Negative for injury and pain, : Negative for injury, bleeding, discharge, and swelling, Skin: Negative for injury, rash, and discoloration, Neuro: Negative for headache, weakness, numbness, tingling, and seizure, Psych: Negative for depression, anxiety, suicide ideation, homicidal ideation, and hallucinations, Allergy/Immunology: Negative for hives, rash, and allergies, Endocrine: Negative for neck swelling, polydipsia, polyuria, polyphagia, and marked weight changes, Hematologic/Lymphatic: Negative for swollen nodes, abnormal bleeding, and unusual bruising. Exam: 19:35 Constitutional: This is a well developed, well nourished patient who is awake, alert, mh7 and in no acute distress. Head/Face: Normocephalic, atraumatic. Eyes: Pupils equal round and reactive to light, extra-ocular motions intact. Lids and lashes normal. Conjunctiva and sclera are non-icteric and not injected. Cornea within normal limits. Periorbital areas with no swelling, redness, or edema. Neck: Trachea midline, no thyromegaly or masses palpated, and no cervical lymphadenopathy. Supple, full range of motion without nuchal rigidity, or vertebral point tenderness. No Meningismus. Chest/axilla: Normal chest wall appearance and motion. Nontender with no deformity. No lesions are appreciated. Cardiovascular: Regular rate and rhythm with a normal S1 and S2. No gallops, murmurs, or rubs. Normal PMI, no JVD. No pulse deficits. Respiratory: Lungs have equal breath sounds bilaterally, clear to auscultation and percussion. No rales, rhonchi or wheezes noted. No increased work of breathing, no retractions or nasal flaring. Abdomen/GI: Soft, non-tender, with normal bowel sounds. No distension or tympany. No guarding or rebound. No evidence of tenderness throughout. Back: No spinal tenderness. No costovertebral tenderness. Full range of motion. Skin: Warm, dry with normal turgor. Normal color with no rashes, no lesions, and no evidence of cellulitis. 19:35 Neuro: Awake and alert, GCS 15, oriented to person, place, time, and situation. Cranial nerves II-XII grossly intact. Motor strength 5/5 in all extremities. Sensory grossly intact. Cerebellar exam normal. Normal gait. Psych: Awake, alert, with orientation to person, place and time. Behavior, mood, and affect are within normal limits. 19:35 Musculoskeletal/extremity: Extremities: noted in the palmar aspect of right forearm: pain, swelling, tenderness, ROM: intact in all extremities, Circulation is intact in all extremities. Sensation intact. Compartment Syndrome exam of affected extremity: is normal. no numbness, no tingling, no sensation deficit, no palor, no weak pulses, Joints: All joints appear normal with full range of motion. DVT Exam: negative Homans' sign noted on exam, no appreciated bluish discoloration, no erythema, no increased warmth, pain, that is mild, of the palmar aspect of right forearm, swelling, that is mild, of the palmar aspect of right forearm, tenderness, that is mild, of the palmar aspect of right forearm. Vital Signs: 15:42 BP 129 / 91; Pulse 88; Resp 16 S; Temp 97.8(TE); Pulse Ox 99% on R/A; Weight 100.7 kg aa5 (R); Height 5 ft. 11 in. (180.34 cm) (R); 22:05 BP 126 / 83; Pulse 72; Resp 18; Pulse Ox 100% on R/A; oe 15:42 Body Mass Index 30.96 (100.70 kg, 180.34 cm) aa5 MDM: 21:49 Differential diagnosis: contusion, tendonitis, DVT, Superficial Thrombophlebitis. Data [facility] reviewed: vital signs, nurses notes, lab test result(s), CBC, electrolytes, radiologic studies, ultrasound. Data interpreted: Pulse oximetry: on room air is 99 %. Interpretation: normal. Counseling: I had a detailed discussion with the patient and/or guardian regarding: the historical points, exam findings, and any diagnostic results supporting the discharge/admit diagnosis, lab results, radiology results, the need for outpatient follow up. 21:51 Response to treatment: the patient's symptoms have markedly improved after treatment. [facility] 21:54 Patient medically screened. [facility] 10/11 19:43 Order name: CBC with Diff; Complete Time: 21:23 [facility] 10/11 19:43 Order name: CMP; Complete Time: 21:47 [facility] 10/11 15:46 Order name: Extremity Venous Uni Ltd US; Complete Time: 19:06 pm1 10/11 19:43 Order name: Protime (+inr); Complete Time: 21:23 [facility] 10/11 19:43 Order name: Ptt, Activated; Complete Time: 21:23 [facility] Administered Medications: 21:20 Drug: Eliquis (apixaban) 10 mg Route: PO; bb Disposition Summary: 10/11/20 21:54 Discharge Ordered Location: Home [facility] Problem: an acute exacerbation [facility] Symptoms: have improved [facility] Condition: Stable [facility] Diagnosis - Deep Vein Thrombosis, Right Upper Extremity [facility] Followup: [facility] - With: Private Physician - When: 1 - 2 days - Reason: Worsening of condition, Recheck today's complaints, Continuance of care, Re-evaluation by your physician Followup: [facility] - With: Lorrie Zelaya MD - When: 1 - 2 days - Reason: Worsening of condition, Recheck today's complaints Discharge Instructions: - Discharge Summary Sheet [facility] - Deep Vein Thrombosis [facility] Forms: - Medication Reconciliation Form [facility] - Thank You Letter [facility] - Antibiotic Education [facility] - Prescription Opioid Use [facility] Prescriptions: - Eliquis DVT-PE Treat 30D Start 5 mg (74 tabs) Oral tablets,dose pack - take 2 tablet by ORAL route 2 times per day for 7 days Take 10 mg PO BID for 7 [facility] Days then 5 mg PO BID; 74 tablet; Refills: 0, Product Selection Permitted Signatures: Dispatcher [employer] Ginger Adame RN RN Alona Lopez RN RN aa5 Rafa Brooks MD MD [facility] Corrections: (The following items were deleted from the chart) 15:42 15:42 PMHx: endomitriosis; aa5 aa5
[2020-10-11 22:46] VITALS: TEMP 97.8
[2020-10-11 22:48] VITALS: BP 126/83; O2SAT 100
== END 2020-10-11 22:37 | disposition home or self-care (01) ==
LOC: ER 14:32
DX: I82.621 Acute embolism and thrombosis of deep veins of right upper extremity (principal); Z88.2 Allergy status to sulfonamides; Z88.8 Allergy status to other drugs, medicaments and biological substances
CPT/HCPCS: 85025; 36415; 85610; 85730; 80053; 93971; 99283; J7050

== ENCOUNTER 2021-02-18 12:10 | Emergency (ER) | payer OTHER ==
--- OUTSIDE RECORDS SUMMARY | 2021-02-18 12:13 | XMS REPORT | Clinical Summary ---
:1980 Author Organization [facility] MD L[facility] Center Address [address] [place] [address] Care Team Providers Name Role Phone Rochelle Noriega Unavailable [phone] MD Dylan Unavailable MD Delia Primary Care [...] Encounters Date Type Specialty Care Team Description 10/27/2020 Telephone Internal Medicine Bhargavi Garcias NP 10/27/2020 Orders Only Internal Medicine Drew Garcias f inding on MANUEL Burk diagnostic imag ing of other abdominal region including retroperitoneum (Primary Dx) 10/27/2020 Orders Only Internal Medicine Bhargavi Garcias NP 10/23/2020 Ancillary Procedure Radiology Right up per quadrant pain; Abnormal findin g on diagnostic imaging of other abdominal region including retroperitoneum 10/23/2020 Hospital Encounter Lab Abnormal finding on diagnostic imag ing of other abdominal region including retroperitoneum 10/23/2020 Travel 10/23/2020 Orders Only Internal Medicine Katerine Neuroendoc rine tumor (Primary Dx); MANUEL Burk Right upper dean drant pain; Abnormal findin g on diagnostic imaging of other abdominal region including retroperitoneum 10/21/2020 Orders Only Internal Medicine Bhargavi Garcias NP 10/21/2020 Telephone Internal Medicine Bhargavi Garcias NP 10/21/2020 Orders Only Internal Medicine Katerine, Neuroendoc rine tumor (Primary Dx); MANUEL Burk Right upper daen drant pain; Abnormal findin g on diagnostic imaging of other abdominal region including retroperitoneum 10/06/2020 Ancillary Procedure Radiology Delia, Neuroend ocrine tumor MD Rachel 10/06/2020 Orders Only Internal Medicine Rachel Lin MD 10/06/2020 Travel 09/22/2020 Ancillary Procedure Radiology Roxanne Lin MD 09/22/2020 Ancillary Procedure Radiology Roxanne Lin MD 09/22/2020 Ancillary Procedure Radiology Roxanne Lin MD 09/22/2020 Office Visit Internal Medicine Delia, Neuroendoc rine tumor MD Rachel (Primary Dx) 09/22/2020 [facility] Patient Access Services 09/22/2020 Travel 06/03/2020 Travel after 02/19/2020 Immunizations Name Administration Dates Next Due Influenza, [...] Comments: Does not work outside of the h ome Alcohol Use Standard Drinks/Week Comments Yes 0 (1 standard drink = 0.6 oz pure alcoho l) wine 1x/month Alcohol Habits Answer Date Recorded How often do you have a drink containing alcohol? Not asked How many drinks containing alcohol do you have on a Not aske d typical day when you are drinking? How often do you have six or more drinks on one occasion? 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 including retroperitoneum 5-HYDROXYINDOLEACETIC Routine 10/23/2020 8:43 Abnormal findin g on Results for ACID 24HR URINE-PEDERSEN AM CDT diagnostic imaging o f this procedure other abdominal region are i n the including results retroperitoneum section. MRI ABDOMEN W WO Routine 10/06/2020 2:00 Neuroendocrine tumor Results for CONTRAST PM CDT this procedure are in the results section. FRACTIONATED BILIRUBIN Routine 10/06/2020 8:29 Neuroendocrine tumor Results for AM CDT this procedure are in the results section. TOTAL PROTEIN Routine 10/06/2020 8:29 Neuroendocrine tumor Re sults for AM CDT this procedure are in the results section. ASPARTATE Routine 10/06/2020 8:29 Neuroendocrine tumor Res ults for AMINOTRANSFERASE AM CDT this proced ure are in the results section. ALANINE Routine 10/06/2020 8:29 Neuroendocrine tumor Res ults for AMINOTRANSFERASE AM CDT this proced ure are in the results section. ALKALINE PHOSPHATASE Routine 10/06/2020 8:29 Neuroendocrine t umor Results for AM CDT this procedure are in the results section. ALBUMIN LEVEL Routine 10/06/2020 8:29 Neuroendocrine tumor Re sults for AM CDT this procedure are in the results section. CALCIUM LEVEL TOTAL Routine 10/06/2020 8:29 Neuroendocrine tu mor Results for AM CDT this procedure are in the results section. .GLOMERULAR FILTRATION Routine 10/06/2020 8:29 Neuroendocrine tumor Results for RATE AM CDT this procedure are in the results section. SERUM CREATININE Routine 10/06/2020 8:29 Neuroendocrine tumor Results for AM CDT this procedure are in the results section. ELECTROLYTE PANEL Routine 10/06/2020 8:29 Neuroendocrine tumo r Results for AM CDT this procedure are in the results section. BLOOD UREA NITROGEN Routine 10/06/2020 8:29 Neuroendocrine tu mor Results for AM CDT this procedure are in the results section. GLUCOSE LEVEL Routine 10/06/2020 8:29 Neuroendocrine tumor Re sults for AM CDT this procedure are in the results section. MANUAL DIFFERENTIAL Routine 10/06/2020 8:29 Neuroendocrine tu mor Results for AM CDT this procedure are in the results section. Results CBC Routine 10/06/2020 8:29 Neuroendocrine tumor Res ults for AM CDT this procedure are in the results section. NEURON SPECIFIC Routine 10/06/2020 8:29 Neuroendocrine tumor Results for ENOLASE, SERUM AM CDT this procedur e are in the results section. GASTRIN LVL Routine 10/06/2020 8:29 Neuroendocrine tumor Res ults for AM CDT this procedure are in the results section. CHROMOGRANIN A Routine 10/06/2020 8:29 Neuroendocrine tumor R esults for AM CDT this procedure are in the results section. URIC ACID Routine 10/06/2020 8:29 Neuroendocrine tumor Res ults for AM CDT this procedure are in the results section. LACTATE DEHYDROGENASE Routine 10/06/2020 8:29 Neuroendocrine tumor Results for AM CDT this procedure are in the results section. PHOSPHORUS LEVEL Routine 10/06/2020 8:29 Neuroendocrine tumor Results for AM CDT this procedure are in the results section. MAGNESIUM LEVEL Routine 10/06/2020 8:29 Neuroendocrine tumor Results for AM CDT this procedure are in the results section. COMPREHENSIVE METABOLIC Routine 10/06/2020 8:29 Neuroendocrin e tumor PANEL AM CDT COMPLETE BLOOD COUNT W/ Routine 10/06/2020 8:29 Neuroendocrin e tumor DIFFERENTIAL AM CDT OSI MRI ABDOMEN Routine 08/12/2020 1:42 Cancer Results for PM CDT this procedure are in the results section. OSI PET CT SKULL TO MID Routine 07/28/2020 2:02 Cancer Results for THIGH PM CDT this procedure are in the results section. OSI CT ABDOMEN AND Routine 05/07/2020 2:02 Cancer Resul ts for PELVIS PM CDT this procedure are in the results section. after 02/19/[address] Abdomen Pelvis with and without Contrast (10/23/2020 4:35 PM CDT) Specimen Impressions [id number] - 10/24/2020 12:23 PM CDT No suspicious lesion in the abdomen or p lauren. I personally reviewed these image(s) lucillejoaquina reese with the resident's/fellow's interpretations, certify that if a procedure was performed I was physically present, and agree with the final report. Narrative [id number] - 10/24/2020 12:23 PM CDT FULL RESULT: Examination: CT ABDOMEN PELVIS W WO CONT RAST, 10/23/2020 4:35 PM Clinical History: Right upper quadrant p ain Abnormal finding on diagnostic imaging o f other abdominal region including retroperitoneum Indication: bowel loops are poorly evalu ated on MRI. Diarrhea/flushing. Comparison: MRI 10/06/2020, OSI Dotatate PET-CT 07/28/2020 Technique: CT of the abdomen and pelvis was performed with intravenous contrast, preceded by CT of the abdomen without intravenous contrast. Findings: LOWER CHEST: Nonspecific 4 mm left lower lobe nodule (series 3, image 9). No consolidations and the visualized portions of the lung bases. ABDOMEN/PELVIS: Liver: No focal suspicious liver lesion. Hepatic vasculature is patent. Gallbladder: Prior cholecystectomy. Biliary Ducts: No intrahepatic or extrah epatic biliary dilatation. Spleen: Normal. Adrenals: Normal. Kidneys/Ureters: The kidneys show symmetric contrast enha ncement and excretion, without hydroureteronephrosis. No suspicious renal lesion. Pancreas: The previously reported pancreatic cyst is not clearly evident, possibly on series 3, image 35. No obvious focal suspicious pancreatic lesion. No pancreatic ductal dilatation. Vasculature: Normal. Lymph Nodes: No pathologically enlarged or suspicious lymph nodes in the abdomen or pelvis. Bowel: Stomach and small bowel are within osmin l limits. Colon is within normal limits. Prior appendectomy. Peritoneum: No ascites or pneumoperitone um. Bladder: Normal. Reproductive Organs: Prior hysterectomy. Bones/Soft Tissues: Possible Tarlov cyst present in the sacr um. No suspicious osseous lesion. No suspici ous soft tissue lesion. Procedure Note Justen Maldonado MD - 10/24/2020 FULL RESULT: Examination: CT ABDOMEN PELVIS W WO CONT RAST, 10/23/2020 4:35 PM Clinical History: Right upper quadrant p ain Abnormal finding on diagnostic imaging o f other abdominal region including retroperitoneum Indication: bowel loops are poorly evalu ated on MRI. Diarrhea/flushing. Comparison: MRI 10/06/2020, OSI Dotatate PET-CT 07/28/2020 Technique: CT of the abdomen and pelvis was performed with intravenous contrast, preceded by CT of the abdomen without intravenous contrast. Findings: LOWER CHEST: Nonspecific 4 mm left lower lobe nodule (series 3, image 9). No consolidations and the visualized portions of the lung bases. ABDOMEN/PELVIS: Liver: No focal suspicious liver lesion. Hepatic vasculature is patent. Gallbladder: Prior cholecystectomy. Biliary Ducts: No intrahepatic or extrah epatic biliary dilatation. Spleen: Normal. Adrenals: Normal. Kidneys/Ureters: The kidneys show symmetric contrast enha ncement and excretion, without hydroureteronephrosis. No suspicious renal lesion. Pancreas: The previously reported pancreatic cyst is not clearly evident, possibly on series 3, image 35. No obvious focal suspicious pancreatic lesion. No pancreatic ductal dilatation. Vasculature: Normal. Lymph Nodes: No pathologically enlarged or suspicious lymph nodes in the abdomen or pelvis. Bowel: Stomach and small bowel are within osmin l limits. Colon is within normal limits. Prior appendectomy. Peritoneum: No ascites or pneumoperitone um. Bladder: Normal. Reproductive Organs: Prior hysterectomy. Bones/Soft Tissues: Possible Tarlov cyst present in the sacr um. No suspicious osseous lesion. No suspici ous soft tissue lesion. IMPRESSION: No suspicious lesion in the abdomen or p lauren. I personally reviewed these image(s) lucille ng with the resident's/fellow's interpretations, certify that if a procedure was performed I was physically present, and agree with the final report. Performing Organization Address City/[facility] Phon e Number [id number] Hydroxyindoleacetic Acid Urine (10/23/2020 8:43 AM CDT) U24 5-HIAA-Garner 3.6 <=7.0 [facility] mg/24hr [facility] Hrs 5-HIAA-Garner 24 hr [facility] TV 5-HIAA-Garner 1700 mL [facility] Comment: CANCER CENTER ADDITIONAL INFORMATION ------ Liquid Chromatography-Tandem Mass Spectrometry (LC-MS/ MS). Values obtained from different assay methods or kits m ay be different and cannot be used interchangeably. The resu lts cannot be interpreted as absolute evidence for the pre sence or absence of malignant disease. This test was developed and its performance characteri stics determined by [facility] in a manner consistent with CLIA requirements. This test has not been cleared or approv ed by the U.S. Food and Drug Administration. Test Performed by: [facility] - [address] [address] Machine Leather Trimmer: Al Pichardo M.D. Ph.D.; CLIA# [id number] Specimen Urine 24 Hr - Urine Clean Catch Performing Organization Address City/[facility] Phon e Number [facility] CANCER Unless otherwise noted, [place] [address] CENTER all lab tests performed by: Division of Pathology and Laboratory Medicine [address] [place] [address] MRI Abdomen W/WO contrast (10/06/2020 2:00 PM CDT) Specimen Impressions [id number] - 10/06/2020 5:59 PM CDT 1. Tiny pancreatic head cyst. No enhancing pancreatic mass is identified. 2. Note is made with regards to concer n for possible neuroendocrine tumor. Bowel loops are poorly evaluated on MRI. Consider CT enterogram protocol for further evaluation, as clinically warranted. I personally reviewed these image(s) lucille reese with the resident's/fellow's interpretations, certify that if a procedure was performed I was physically present, and agree with the final report. Narrative [id number] - 10/06/2020 5:59 PM CDT FULL RESULT: Examination: MRI ABDOMEN W WO CONTRAST o n 10/06/2020 2:00 PM. Clinical History: 40-year-old female wit h no prior history of malignancy who is undergoing workup for possible neuroendocrine tumor with symptoms of diarrhea and skin flushing. Indication: 5 mm pancreatic head lesion. Comparison: MRI abdomen 08/12/2020 from [facility], CT abdomen/pelvis 05/07/2020 from outside hospital, [...] (series 6, image 39). No definite communication wit h the main pancreatic duct is identified on this exam and review of prior MRCP images. The pancreatic duct is normal in caliber. No lymphadenopathy is identified. The ab dominal aorta and inferior vena cava demonstrate normal course and contour. No suspicious osseous lesions are identi fied. A small fat-containing umbilical hernia is noted. Procedure Note Baldemar Sheets MD - 021 FULL RESULT: Examination: MRI ABDOMEN W WO CONTRAST o n 10/06/2020 2:00 PM. Clinical History: 40-year-old female wit h no prior history of malignancy who is undergoing workup for possible neuroendocrine tumor with symptoms of diarrhea and skin flushing. Indication: 5 mm pancreatic head lesion. Comparison: MRI abdomen 08/12/2020 from [facility], CT abdomen/pelvis 05/07/2020 from outside hospital, [...] with the final report. Performing Organization Address City/[facility]/ZIP Code Phon e Number [id number] .Serum Creatinine (10/06/2020 8:29 AM CDT) Pathologist Sig nature Creatinine 0.80Comment: Testing 0.51 - 0.95 mg/dL [place] performed at [facility], [address] [place] [address], [place] [address] Specimen Blood Performing Organization Address [facility] [place] [address] [place] [address] (ABNORMAL) .CBC (10/06/2020 8:29 AM CDT) Pathologist Sig nature WBC 5.9Comment: All 4.0 - 11.0 K/uL [place] components of the CBC performed at [facility], [address] [place] [address] RBC 4.29Comment: All 4.00 - 5.50 [place] components of the CBC M/uL performed at [facility], [address] [place] [address], [place] [address] Hgb 12.6Comment: As part 12.0 - 16.0 [place] of CBC or as an gm/dL individual orderable testing performed at [facility], [address] [place] [address], [place] [address] Hct 39.5Comment: As part 37.0 - 47.0 % [place] of CBC testing performed at [facility], [address] [place], [place] [address] MCV 92Comment: As part of 82 - 98 fL [place] CBC testing performed at [facility], [address] [place] [address], [place] [address] MCH 29.4Comment: As part 27.0 - 31.0 pg [place] of CBC testing performed at [facility], [address] [place] [address], [facility] MCHC 31.9Comment: As part 31.0 - 36.0 [place] of CBC testing gm/dL performed at [facility], [address] [place] [address], [facility] RDW-SD 45.1Comment: As part 35.1 - 46.3 fL [place] of CBC testing performed at [facility], [address] [place] [address] RDW-CV 13.2Comment: As part 12.0 - 15.5 % [place] of CBC testing performed at [facility], [address] [place], [place] [id number] Platelet count 291Comment: As part 140 - 440 K/uL [place] of CBC or an individual orderable testing performed at [facility], [address] [place] [address], [place] [address] MPV 10.5 (H)Comment: As 4.0 - 10.4 fL [place] part of CBC testing performed at [facility], [address] [place] [address] Specimen Blood Performing Organization Address City/State/ZIP Code Phon e Karo [place] [address] [address] [facility] Glomerular Filtration Rate (10/06/2020 8:29 AM CDT) Pathologist Sig nature eGFR-AA 107 >=60 mL/min/1.73 [place] Comment: sq. m Normal eGFR >= 60 mL/min/1.73 m2 Note: The eGFR is calculated using the CKD-EPI equation. The eGFR declines with age. eGFR <60 mL/min/1.73 m2 is considered as "decreased". This equation should only be used for patients 18 and older. According to the National dney Foundation's Kidney Disease Outcome Quality Initiative (KDOQI) classification [...] 5 Kidney failure <15 Testing performed at [facility], [facility] [place] [address] eGFR-JOHAN 93 >=60 mL/min/1.73 [place] Comment: sq. m Normal eGFR >= 60 mL/min/1.73 m2 Note: The eGFR is calculated using the CKD-EPI equation. The eGFR declines with age. eGFR <60 mL/min/1.73 m2 is considered as "decreased". This equation should only be used for patients 18 and older. According to the National dney Foundation's Kidney Disease Outcome Quality Initiative (KDOQI) classification [...] 5 Kidney failure <15 Testing performed at [facility], [address] [place] [address] Specimen Blood Performing Organization Address City/[facility]/[place] [address] [place] [address] Fractionated Bilirubin (10/06/2020 8:29 AM CDT) Bili Total 0.3 <=1.2 mg/dL [place] Comment: Indocyanine Green (ICG) may cause falsely elevated bilirubin results. Total and direct bilirubin must not be measured from samples containing indocyanine green. False elevation of total lisandro irubin can be seen in patients with IgG concentrations above 28 g/L. Testing performed at [facility], [address] [place] [address] Bili Direct <0.2 <=0.3 mg/dL [place] Comment: Indocyanine Green (ICG) may cause falsely elevated bilirubin results. Total and direct bilirubin must not be measured from samples containing indocyanine green. Testing performed at [facility], [address] [place] [address] Bili Indirect See Note 0.0 - 0.9 [place] Comment: mg/dL Unable to calculate Indirect Bilirubin result due to some parameters are outside reportable range Testing performed at [facility], [address] [place] [address] Specimen Blood Performing Organization Address City/State/[place] [address] [place] [address] NSE (10/06/2020 8:29 AM CDT) Neuron 9.6 <=15 ng/mL [facility] Comment: CANCER CENTER ADDITIONAL INFORMATION ------ This test was developed and its performance characteri stics determined by [facility] in a manner consistent with CLIA requirements. This test has not been cleared or approved by the U.S. Food and Drug Administration. The testing method is a homogeneous time-resolved immunofluorescent assay manufactured by [employer] and performed on the [employer] Krypt[employer] Compact Plus. Values obtained with different assay methods or kits may be different and cannot be used interchangeably. If ordered as a tumor marker, this test result cannot be interpreted as absolute evidence for the presence or absence of malignant disease. Test Performed by: [facility] [place] [address] Machine Leather Trimmer: Al Pichardo M.D. Ph.D.; CLIA# [id number] Specimen Blood Performing Organization Address [facility] Phon e Number [facility] CANCER Unless otherwise noted, [address] all lab tests performed by: Division of Pathology and Laboratory Medicine [facility]5 [facility] Chromogranin A (10/06/2020 8:29 AM CDT) [facility] Chromogranin A-[place] [address] <93 ng/mL [facility] Comment: CANCER CENTER ADDITIONAL INFORMATION ------ This test was developed and its performance characteri stics determined by [facility] in a manner consistent with CLIA requirements. This test has not been cleared or approv ed by the U.S. Food and Drug Administration. The testing method is a homogeneous time-resolved immunofluorescent assay manufactured by [employer] and performed on the [employer] Kryptor Compact Plus. Values obtained with different assay methods or kits m ay be different and cannot be used interchangeably. Test results cannot be interpreted as absolute evidenc e for the presence or absence of malignant disease. Test Performed by: [facility] [place] [address] Machine Leather Trimmer: Al Pichardo M.D. Ph.D.; CLIA# [id number] Specimen Blood Performing Organization Address [facility] Phon e Number [facility] CANCER Unless otherwise noted, [address] all lab tests performed by: Division of Pathology and Laboratory Medicine [address] Differential (10/06/2020 8:29 AM CDT) Pathologist [facility] Neutrophil % 54.2Comment: All 42.0 - 66.0 % [facility] components of the Differential performed at [facility], [address] [place] [address] Lymphocyte % 37.6Comment: As part 24.0 - 44.0 % [place] of the Differential testing performed at [facility], [address] [place] [address], [place] [address] Monocyte % 5.3Comment: As part of 2.0 - 7.0 % [place] the Differential testing performed at [facility], [address] [place] [address], [place] [address] Eosinophil % 2.4Comment: As part of 1.0 - 4.0 % [place] the Differential testing performed at [facility], [address] [place] [address] Basophil % 0.5Comment: As part of 0.0 - 1.0 % [place] the Differential testing performed at [facility], [address] [place] [address] IGRE % 0.0 0.0 - 0.4 % [place] Comment: IGRE % count includes Metamyelocytes, Myelocytes, and Promyelocytes. As part of the Differential testing performed at [facility], [address] [place] [address], [place] [address] Neutrophil Abs 3.19Comment: As part 1.70 - 7.30 [place] of the Differential K/uL testing performed at [facility], [address] [place] [address], [place] [address] Lymphocyte Abs 2.21Comment: As part 1.00 - 4.80 [facility] of the Differential K/uL testing performed at [facility], [address] [place] [address] Monocyte Abs 0.31Comment: As part 0.08 - 0.70 [place] of the Differential K/uL testing performed at [facility], [address] [place] [address] Eosinophil Abs 0.14Comment: As part 0.04 - 0.40 [place] of the Differential K/uL testing performed at [facility], [address] [place] [address] Basophil Abs 0.03Comment: As part 0.00 - 0.10 [place] of the Differential K/uL testing performed at [facility], [address] [place] [address]496 IG Abs 0.00Comment: As part 0.00 - 0.04 [place] of the Differential K/uL testing performed at [facility], [address] [place] [address]1251 Specimen Blood Performing Organization Address City/State/ZIP Code Phon e [place] [id number] [place] [address] Uric Acid (10/06/2020 8:29 AM CDT) Pathologist Sig nature Uric Acid 5.1Comment: Testing 2.4 - 5.7 mg/dL [place] performed at [facility], [address] [place] [address]484 Specimen Blood Performing Organization Address City/State/ZIP Code Phon e [address] BUN (10/06/2020 8:29 AM CDT) Pathologist Sig nature BUN 9Comment: Testing performed 6 - 23 mg/dL [facility], [address] [place] [address] Specimen Blood Performing Organization Address City/State/ZIP Code Phon e [place], [place] [id number] [place] [address] ALT (10/06/2020 8:29 AM CDT) Pathologist Sig nature ALT 8Comment: Testing performed at <=33 U/L ABBY [facility], [address] [place] [address]18 Specimen Blood Performing Organization Address City/State/ZIP Code Phon e [address] Aspartate Aminotransferase (10/06/2020 8:29 AM CDT) Pathologist Sig nature AST 13Comment: Testing performed <=32 U/L [facility], [address] [place] [address] 85097 Specimen Blood Performing Organization Address City/[facility]/[place] [address] [place] [address] Total Protein (10/06/2020 8:29 AM CDT) Pathologist Sig nature Total Protein 7.3Comment: Testing 6.4 - 8.3 g/dL [place] performed at [facility], [address] [place] [address] 47[address] Specimen Blood Performing Organization Address City/State/ZIP Code Phon e Number [place], [place] [id number] [place] [address] Phosphorus Level (10/06/2020 8:29 AM CDT) Pathologist Sig nature Phosphorus 3.3Comment: Testing 2.5 - 4.5 mg/dL [place] performed at [facility], [address] [place] [address] 98904 Specimen Blood Performing Organization Address City/[facility]/[place] [address] [place] [address] Alkaline Phosphatase (10/06/2020 8:29 AM CDT) Pathologist Sig nature Alk Phos 92Comment: Testing 35 - 104 U/L [place] performed at [facility], [address] [place] [address] 26055 Specimen Blood Performing Organization Address City/[facility]/ZIP Code Phon e Number [place], [place] [id number] [place] [address] Magnesium Level (10/06/2020 8:29 AM CDT) Pathologist Sig nature Magnesium 2.0Comment: Testing 1.6 - 2.6 mg/dL [place] performed at [facility], [address] [place] [address] 91743 Specimen Blood Performing Organization Address City/[facility]/ZIP Code Phon e [place], [place] [id number] [place] [address] (ABNORMAL) LDH (10/06/2020 8:29 AM CDT) Pathologist Sig nature LDH 251 (H) 135 - 214 U/L [place] Comment: Results greater than 1651 U/ L may not be reliable due to matrix effect with extended dilution as it exceeds the scout s recommended limit. Caution should be exercised when interpreting such jenelle ues and done in conjunction with clinical context. Testing performed at [facility], [address] [place] [address] 39890 Specimen Blood Performing Organization Address City/[facility] Phon e Number [place], [place] [id number] [place] [address] Glucose Level (10/06/2020 8:29 AM CDT) Pathologist Sig [facility] Glucose Level 94 70 - 99 mg/dL [place] Comment: Effective 09/03/15, the gluco se reference intervals have been updated based on [place] Diabetes Association guidelines (Standards of Medical Care in Diabetes 2016. Diabetes Care 2016; 39: S13-S22). Fasting blood glucose: Normal: 70-99 mg/dL Impaired fasting glucose (in creased risk for diabetes or pre-diabetes): 100- 125 mg/dL Diabetes mellitus: >/=126 mg/dL Random blood glucose: Normal: 70-199 mg/dL Note: Random glucose >100 mg/dL is assoc iated with increased risk for diabetes Testing performed at [facility], [address] [place] [address] 27365 Specimen Blood Performing Organization Address [facility] e Number [place], [place] [id number] [place] [address] Gastrin (10/06/2020 8:29 AM CDT) Pathologist [facility] Gastrin-Garner 11 pg/mL [facility] Comment: CANCER CENTER REFERENCE VALUE ------ <100 Reference ranges valid for >= 8 hour fast. Test Performed by: [facility] [address] [place] [address] Machine Leather Trimmer: Al Pichardo M.D. Ph.D.; CLIA# [id number] Specimen Blood Performing Organization Address City/[facility] Phon e Number [facility] CANCER Unless otherwise noted, [address] all lab tests performed by: Division of Pathology and Laboratory Medicine [address] Calcium Level (10/06/2020 8:29 AM CDT) Pathologist Sig nature Calcium Lvl 9.3Comment: Testing 8.4 - 10.2 mg/dL [place] performed at [facility], [address] [place] [address] 26417 Specimen Blood Performing Organization Address City/[facility] [address] [place] [address] Albumin Level (10/06/2020 8:29 AM CDT) Pathologist Sig nature Albumin Lvl 4.2Comment: Testing 3.5 - 5.2 gm/dL [place] performed at [facility], [address] [place] [address] 40074 Specimen Blood Performing Organization Address City/[facility] [place] [address] [place] [address] Electrolyte Panel (10/06/2020 8:29 AM CDT) Pathologist Sig nature Sodium Lvl 140Comment: Testing 136 - 145 mEq/L [place] performed at [facility], [address] [place] [address] 61634 Potassium Lvl 4.4Comment: Testing 3.5 - 5.1 mEq/L [place] performed at [facility], [address] [place] [address] 58070 Chloride 103Comment: Testing 98 - 107 mEq/L [place] performed at [facility], [address] [place] [address] 43672 CO2 27Comment: Testing 22 - 29 mEq/L [place] performed at [facility], [address] [place] [address] 73329 Anion Gap 10Comment: Testing 4 - 14 mEq/L [place] performed at [facility], [address] [place] [address] 7[address]24 Specimen Blood Performing Organization Address City/[facility] [place] [address] [address] [place] [facility] OSI MRI ABDOMEN (08/12/2020 1:42 PM CDT) Specimen Narrative Systemgenerated, Documentation - 021 1:42 PM CDT Study acquired at another institution. For comparison only. No MD Galvan originated interpretation requested or a vailable. OSI PET CT Skull to Mid Thigh (07/28/2020 2:02 PM CDT) Specimen Narrative Systemgenerated, Documentation - 021 2:03 PM CDT Study acquired at another institution. For comparison only. No Cole originated interpretation requested or a vailable. OSI CT Abdomen and Pelvis (05/07/2020 2:02 PM CDT) Specimen Narrative Systemgenerated, Documentation - 021 2:02 PM CDT Study acquired at another institution. For comparison only. No [place] originated interpretation requested or a vailable. 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
--- OUTSIDE RECORDS SUMMARY | 2021-02-18 12:15 | XMS REPORT | Continuity of Care Document ---
:1980 Author Organization [facility] t Address [address] [place] [place] [address] Care Team Providers Name Role Phone [phone] Primary Care Physician Unavailable Valentin LIMON Attending Clinician Unavailable Basilia MADDOX Attending Clinician Unavailable SYSTEM, NOT IN Attending Clinician Unavailable MARC MCCORD Attending Clinician Unavailable Valentin Limon MD Attending Clinician LISET Attending Clinician Unavailable PAULA MADDOX Attending Clinician Unavailable GISSELLE Attending Clinician Unavailable Katerine JACKSON Attending Clinician Delia BOLDEN Attending Clinician DELIA Attending Clinician Unavailable Leann LOBO Attending Clinician Unavailable Aaron Gonzalez MD Attending Clinician Lalit MCCRATHY Attending Clinician Unavailable Kiel Toney DO Attending Clinician Jose THAO Attending Clinician Unavailable Yessi WILDE Attending Clinician [facility] Attending Clinician Unavailable YESSI Attending Clinician Unavailable ESTEPHANIE FELDER Attending Clinician Unavailable LISET Admitting Clinician Unavailable Payers Payer Name Policy Type Policy Number Effective Date Expiration Date Francisco cooper [employer]ETNA CHOICE POS [id number] 2014 II 00:00:00 AETNA MANAGED [id number] 2014 MD Galvan CAREAETNA 00:00:00 [id number] [id number] SUDHAKAR ROBERSON [id number] Problems Condition Condition Condition Status Onset Resolution Last Treating Co mments Source Name Details Category Date Date Treatment Clinician Date Intracrani Intracrani Disease Active Overview : Methodi [...] Status Status Disease Active Methodi migrainosu migrainosu 07 [facility] s s 00:00: Hospita 00 l Chest pain Chest pain Disease Active 2016-02 M ethodi 03-07 st 00:00: Hospita 00 l Migraine Migraine Disease Active Metho di with with 03-04 st status status 00:00: Hospita migrainosu migrainosu 00 l s s Acquired Acquired Disease Active Metho di hypothyroi hypothyroi 1 st dism dism 00:00: Hospita 00 l Endometrio Endometrio Disease Active M D sis of sis of 3-07 Anderso pelvic pelvic 00:00: n peritoneum peritoneum 00 Right Right Disease Active upper upper 2-29 Anderso quadrant quadrant 00:00: n pain pain 00 Deep vein Deep vein Disease Active Overview: Methodi thrombosis thrombosis 02-[address] 00:00: g of this Hospita 00 note l might be different from the original. had blood clot to left arm from IV, treated with bld.thinn er for 6 mos.and cleared now. 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 MD Galvan Abnormal Diagnosis Active 2021-01-16 M emoria finding on 17:12:27 l diagnostic Abnormal He rmann imaging of finding on other diagnostic abdominal imaging of region other including abdominal retroperit region oneum including retroperit oneum Active 1 MD Galvan Allergies, Adverse Reactions, Alerts Allergy Allergy Status Severity Reaction(s) Onset Inactive Treating Comm ents Source Name Type Date Date Clinician Metoclop Propensi Active Diarrhea 2019-0 Univ ers ramide ty to 5-04 ity of Hcl adverse 00:00: [place] reaction 00 Medical s Branch Sulfa Propensi Active Hives 2020-0 Univers (Sulfona ty to 5-04 ity of mide adverse 00:00: [place] Antibiot reaction 00 Medica l ics) s Branch METOCLOP DRUG Active Diarrhea 2019-0 Univer s RAMIDE INGREDI 5-04 ity of HCL 00:00: [place] 00 Medical Branch SULFA Drug Active Hives 2020-0 Univers (SULFONA Class 5-04 ity of MIDE 00:00: [place] ANTIBIOT 00 Medical ICS) Branch Metoclop Propensi Active Diarrhea Meth garth ramide ty to [address] Hcl adverse 00:00: Hospita reaction 00 l s to drug Metoclop Metoclop Active High, Diarrhea, GI Memoria ramide ramide High Intolerance 1-25 l 00:00: [place] 00 Sulfa Propensi Active Rash 2013-0 Methodi (Sulfona ty to 5-06 st mide adverse 00:00: Hospita Antibiot reaction 00 l ics) s to drug NO KNOWN Drug Active Univers ALLERGIE Class ity of S [facility] [place] [facility] Family History Family Member Diagnosis Comments Start Date Stop Date Source Natural father Thyroid cancer And coral Natural father Diabetes [facility] Natural father Thyroid disease [facility] Maternal grandmother -Other cancer M D Cole Maternal grandmother Bile duct cancer MD Galvan Maternal grandmother Cervical cancer MD Galvan Maternal grandmother Melanoma MD Alyse tobias Maternal grandmother Skin cancer MD Galvan Maternal grandmother Thyroid cancer MD Galvan Maternal grandmother Cancer [facility] Maternal uncle Heart attack MD Ladd son Paternal aunt Stomach cancer MD Jake [place] Paternal grandfather Colon cancer MD Galvan Maternal grandfather Diabetes [facility] Natural mother [facility] Social History Social Habit Start Date Stop Date Quantity Comments Source History [facility] MD Galvan Alcohol Frequency History [facility] MD Galvan Alcohol Std Drinks History [facility] MD Galvan Alcohol Binge Exposure to Not sure University of SARS-CoV-2 [facility] (event) Branch Sex Assigned At [facility] Alcohol intake 2020-09-22 2020-09-22 Current drinker MD Beba le 00:00:00 00:00:00 of alcohol (finding) Tobacco use and 2015-04-14 2015-04-14 Smokeless tobacco MD Galvan exposure 00:00:00 00:00:00 non-user History SDPA 2015-04-14 2015-04-14 wine 1x/month MD Flores on Alcohol Comment 00:00:00 00:00:00 Tobacco Comment 2015-04-14 2015-04-14 Does not work 00:00:00 00:00:00 outside of the home Smoking Status Start Date Stop Date Source Tobacco smoking consumption unknown [facility] Social History [facility] Medications Ordered Filled Start Stop Current Ordering Indication Dosage Frequency Signature Comments Components Source Medication Medication Date Date Medication? Clinician (SIG) Name Name levothyroxi 2020-02 Yes Take 1 Rafael cristina ne 2-10 tablet by l (SYNTHROID, 17:12: mouth Citlali nn LEVOTHROID) 27 daily. 112 mcg tablet escitalopra Yes 20mg Take 20 mg MD mona (LEXAPRO) 8-30 by mouth Jake rso 20 mg 12:58: daily. n tablet 31 levothyroxi Yes 1{tbl} Take 1 MD ne 8-30 tablet by Anderso (SYNTHROID, 12:58: mouth n LEVOTHROID) 31 daily. 112 mcg tablet HYDROcodone 2020- No 1{tbl} Take 1 M D -acetaminop 8-16 08-16 tablet by An josué mcneil ([employer] 14:12: 00:00 mouth as n 10 mg-325 25 :00 needed. mg per tablet HYDROcodone No Take 1 Rafael cristina -acetaminop 8-16 tablet by crystal mcneil ([employer] 00:00: mouth as He rmann 10 mg-325 00 needed. mg per tablet estradiol Yes 1{tbl} Take 1 MD (ESTRACE) [...] QD Take 1 Metho di (Estrace) 2 05-05- tablet (2 st MG tablet 00:00: 00:00 mg total) Ho spita 00 :00 by mouth l daily. estrogens, No [id number] TAKE 1 Methodi conjugated, 04-30- TABLET st (Premarin) 00:00: 00:00 (1.25 MG Ho spita 1.25 MG 00 :00 TOTAL) BY l tablet MOUTH DAILY. estrogens, No [id number] TAKE 1 Methodi conjugated, 3-[address] (Premarin) 00:00: 00:00 (1.25 MG Ho spita 1.25 MG 00 :00 TOTAL) BY l tablet MOUTH DAILY. Premarin 2020- No TAKE 1 Method i 1.25 mg 2-31 03- TABLET st tablet 00:00: 00:00 (1.25 MG Hospit a 00 :00 TOTAL) BY l MOUTH DAILY. LAST REFILL- NEEDS AN APT!!! estradioL 2020- No Please Metho di (ESTRACE) 2 -31 03- specify st MG tablet 00:00: 00:00 directions H ospita 00 :00 , refills l and quantity sucralfate 2020- No 1g Q.25D Take 1 Met hodi (Carafate) 03-28 tablet (1 st 1 gram 00:00: 04:59 g total) Hospit a tablet 00 :00 by mouth 4 l (four) times a day for 30 days. pantoprazol No 20mg QD Take 1 Met hodi e 03-28 tablet (20 st (PROTONIX) 00:00: 04:59 mg total) H ospita 20 MG EC 00 :00 by mouth l tablet daily for 30 days. promethazin 2020- No 25mg Q6H Take 1 Met hodi e 03-28 tablet (25 st (PHENERGAN) 00:00: 04:59 mg total) Hospita 25 MG 00 :00 by mouth l tablet every 6 (six) hours as needed for nausea or vomiting for up to 30 days. hyoscyamine No .125mg Q4H Take 1 M ethodi (Levsin/SL) 03-[address] 0.125 mg SL 00:00: 05:59 (0.125 mg Hospita tablet 00 :00 total) by l mouth every 4 (four) hours as needed for cramping for up to 30 days. HYDROcodone 2020- No [id number] 1{tbl} Q6H Take 1 Methodi -acetaminop 03-[address] hen (NORCO) 00:00: 05:59 mouth [facility]osp [place] 5-325 mg 00 :00 every 6 l per tablet (six) hours as needed for moderate pain for up to 10 days .acute pain. Max Daily Amount: 4 tablets estrogens, 2020- No 1.25mg QD Take 1 Me thodi conjugated, 06-[address] (Premarin) 00:00: 00:00 (1.25 mg Ho spita 1.25 MG 00 :00 total) by l tablet mouth daily. LAST REFILL- NEEDS AN APT!!! Levothyroxi Yes Take by Diego thornton ne 137 mcg 5-04 mouth. ity of Cap 21:09: [address] escitalopra Yes 10mg Take 10 mg Univers m oxalate 5-04 by mouth ity of 10 mg 21:09: daily. [address] conjugated 2020-0 Yes 1.25mg Take 1.25 Univers estrogens 5-04 mg by ity of (PREMARIN) 21:09: mouth [place] 1.25 mg 23 daily. Medical tablet Branch Levothyroxi 2020-0 Yes Take by Un norberto ne 137 mcg 5-04 mouth. ity of Cap 21:09: 23 Medical Branch escitalopra 2020-0 Yes 10mg Take 10 mg Univers m oxalate 5-04 by mouth ity of 10 mg 21:09: daily. [place] tablet 23 Medical Branch conjugated 2020-0 Yes 1.25mg Take 1.25 Univers estrogens 5-04 mg by ity of (PREMARIN) 21:09: mouth [place] 1.25 mg 23 daily. Medical tablet Branch Levothyroxi 2020-0 Yes Take by Un norberto ne 137 mcg 5-04 mouth. ity of Cap 21:09: Medical Branch escitalopra 2020-0 Yes 10mg Take 10 mg Univers m oxalate 5-04 by mouth ity of 10 mg 21:09: daily. [place] tablet 23 Medical Branch conjugated 2020-0 Yes 1.25mg Take 1.25 Univers estrogens 5-04 mg by ity of (PREMARIN) 21:09: mouth [place] 1.25 mg 23 daily. Medical tablet Branch fluticasone 2020-0 Yes [id number] 1{spray Use 1 Univers propionate 5-04 } [place] in ity o f 50 00:00: each [place] mcg/actuati 00 nostril 2 Med ical on nasal (two) Branch spray times daily. cetirizine 2020-0 Yes [id number] 10mg Take 1 U nivers (ZYRTEC) 10 5-04 tablet by ity of mg tablet 00:00: mouth [place] 00 daily. Medical Branch fluticasone 2020-0 Yes [id number] 1{spray Use 1 Univers propionate 5-04 } [place] in ity o f 50 00:00: each [place] mcg/actuati 00 nostril 2 Med ical on nasal (two) Branch spray times daily. cetirizine 2020-0 Yes [id number] 10mg Take 1 U nivers (ZYRTEC) 10 5-04 tablet by ity of mg tablet 00:00: mouth [place] 00 daily. Medical Branch fluticasone 2020-0 Yes [id number] 1{spray Use 1 Univers propionate 5-04 } [place] in ity o f 50 00:00: each [place] mcg/actuati 00 nostril 2 Med ical on nasal (two) Branch spray times daily. cetirizine Yes [id number] 10mg Take 1 U nivers (ZYRTEC) 10 5-04 tablet by ity of mg tablet 00:00: mouth [place] 00 daily. Medical Branch PREMARIN 2020- No [id number] TAKE 1 M ethodi 1.25 mg 5-16 03-[address] tablet 00:00: 00:00 (1.25 MG Hospit a 00 :00 TOTAL) BY l MOUTH DAILY. aspirin Yes 1{tbl} Take 1 MD (Enteric 3-20 tablet by Mark o Coated 00:00: mouth n Aspirin) 81 00 daily. mg EC tablet aspirin 81 Yes aspirin 81 U nivers mg EC 3-20 mg ity of tablet 00:00: tablet,[facility] aspirin 81 Yes aspirin 81 U nivers mg EC 3-20 mg ity of tablet 00:00: tablet,[facility] aspirin 81 Yes aspirin 81 U nivers mg EC 3-20 mg ity of tablet 00:00: tablet,[facility] aspirin Yes 81 mg = 1 Metho di (ENTERIC 3-20 tab, PO, st COATED 00:00: Daily, # Hospita ASPIRIN) 81 00 90 tab, 3 l MG enteric Refill(s), coated Pharmacy: [id number] aspirin Yes Take 1 Memoria (Enteric 3-20 tablet by l Coated 00:00: mouth [place] Aspirin) 81 daily. mg EC tablet ticagrelor 2020- No Brilinta Me thodi (BRILINTA) 3-20 02-[address] 60 mg 00:00: 00:00 tablet Hospita tablet 00 :00 l levothyroxi 2017-02 Yes TAKE 1 Meth garth ne 2-[address] (SYNTHROID, 00:00: MOUTH Hospi ta LEVOXYL) 00 EVERY l 137 mcg MORNING tablet promethazin Yes 1{tbl} Take 1 MD e 7-05 tablet by Suriersjoaquina (PHENERGAN) 00:00: mouth as n 25 mg 00 needed. tablet promethazin Yes Take 1 Rafael cristina e 7-05 tablet by l (PHENERGAN) 00:00: mouth as He rmann 25 mg 00 needed. tablet tiZANidine 2020- No tizanidine Methodi (ZANAFLEX) 5-12 09-[address] 4 MG tablet 00:00: 00:00 tablet Hos luz 00 :00 l HYDROmorpho No Memori a ne 3-14 l (DILAUDID) 00:00: Forrest 2 mg tablet 00 HYDROmorpho 2020- No ne 3-14 08-16 Anderso (DILAUDID) 00:00: 00:00 n 2 mg tablet 00 :00 meloxicam No Take 1 Memori a (MOBIC) 15 3-03 tablet by l mg tablet 00:00: mouth [place] 00 daily. topiramate No Take 1 Memor ia (TOPAMAX) 3-03 tablet by l 25 mg 00:00: mouth [place] tablet 00 daily. meloxicam 2020- No 1{tbl} Take 1 MD (MOBIC) 15 3-03 08-16 tablet by And erso mg tablet 00:00: 00:00 mouth n 00 :00 daily. topiramate 2020- No 1{tbl} Take 1 MD (TOPAMAX) 3-03 08-16 tablet by Jake rso 25 mg 00:00: 00:00 mouth n tablet 00 :00 daily. Immunizations Ordered Immunization Filled Immunization Date Status Commen ts Source Name Name Influenza, 2020-01-15 Completed MD Galvan Quadrivalent 00:00:00 Influenza, 2020-01-15 Completed [facility] Quadrivalent 00:00:00 [place] Influenza, 2020-01-15 Completed [facility] Quadrivalent 00:00:00 [place] Influenza, 2018-11-21 Completed MD Galvan Quadrivalent 00:00:00 Maxiap 2018-11-21 Completed MD Galvan 00:00:00 Influenza, 2018-11-21 Completed [facility] Quadrivalent 00:00:00 [place] Tdap 2018-11-21 Completed [facility] 00:00:00 [place] Influenza, 2018-11-21 Completed [facility] Quadrivalent 00:00:00 [place] Pneumococcal 2014-08-28 Completed MD Galvan Polysaccharide 00:00:00 Pneumococcal 2014-08-28 Completed [facility] Polysaccharide 00:00:00 [place] 2008-03-29 Completed MD Galvan 00:00:00 Tdmarce 2008-03-29 Completed [facility] 00:00:00 [facility] Tdap 2008-03-29 Completed [facility] 00:00:00 [place] Vital Signs Vital Name Observation Time Observation Value Comments Source Systolic blood 2019-06-11 21:07:00 122 mm[Hg] Univer sity of pressure [facility] Diastolic blood 2019-06-11 21:07:00 74 mm[Hg] Unive rsity of pressure [facility] Heart rate 2019-06-11 21:07:00 81 /min [facility] Body temperature 2019-06-11 21:07:00 37.11 [facility] 2019-06-11 21:07:00 180.3 cm [facility] Body weight 2019-06-11 21:07:00 99.791 kg [facility] BMI 2019-06-11 21:07:00 30.68 kg/m2 [facility] Oxygen saturation in 2019-06-11 21:07:00 99 /min [facility] blood by [facility] Pulse oximetry Branch Respitory Rate 2020-10-10 18:34:00 Memori al [place] Systolic (mm Hg) 2020-10-10 18:34:00 Rafael rial [place] Diastolic (mm Hg) 2020-10-10 18:34:00 [facility] orial [place] Heart Rate 2020-10-10 18:19:00 [facility] Fowler Respitory Rate 2020-10-10 18:19:00 Memori al [place] Systolic (mm Hg) 2020-10-10 18:19:00 Rafael rial [place] Diastolic (mm Hg) 2020-10-10 18:19:00 Mem orial [place] Heart Rate 2020-10-10 18:04:00 [facility] Fowler Respitory Rate 2020-10-10 18:04:00 Memori al [place] Systolic (mm Hg) 2020-10-10 18:04:00 Rafael rial [place] Diastolic (mm Hg) 2020-10-10 18:04:00 [facility] orial Forrest Heart Rate 2020-10-10 18:02:00 [facility] [place] Height 2020-10-10 14:19:00 180.34 cm [facility] [place] Weight 2020-10-10 14:19:00 [facility] [place] BMI Calculated 2020-10-10 14:19:00 Memori al [place] Body height 2020-10-06 17:55:00 178 cm MD Ladd son Body weight 2020-10-06 17:55:00 103.2 kg Wilberto son BMI 2020-10-06 17:55:00 32.57 kg/m2 MD Ladd son Systolic blood 2020-09-22 17:32:17 120 mm[Hg] pressure Diastolic blood 2020-09-22 17:32:17 76 mm[Hg] MD Yoder derson pressure Heart rate 2020-09-22 17:32:17 72 /min MD Ladd son Body temperature 2020-09-22 17:32:17 37.11 Rosette MD Alyse leblancrson Respiratory rate 2020-09-22 17:32:17 18 /min MD Alyse moraleson Oxygen saturation in 2020-09-22 17:32:17 97 /min MD Galvan Arterial blood by Pulse oximetry Height 2020-09-22 17:32:17 178 cm [facility] Weight 2020-09-22 17:32:17 [facility] [place] Systolic (mm Hg) 2020-08-15 16:16:00 Rafael rial [place] Diastolic (mm Hg) 2020-08-15 16:16:00 Mem orial [place] Heart Rate 2020-08-15 16:16:00 [facility] [place] Respitory Rate 2020-08-15 16:16:00 Memori al [place] Temperature Oral (F) 2020-08-15 16:16:00 98.2 F [facility] [place] Height 2020-08-15 16:16:00 177.8 cm [facility] [place] Weight 2020-08-15 16:16:00 [facility] [place] BMI Calculated 2020-08-15 16:16:00 Memori al [place] Systolic (mm Hg) 2020-08-01 18:16:00 Rafael rial [place] Diastolic (mm Hg) 2020-08-01 18:16:00 Mem orial [place] Heart Rate 2020-08-01 18:16:00 [facility] [place] Respitory Rate 2020-08-01 18:16:00 Memori al [place] Temperature Oral (F) 2020-08-01 18:16:00 [facility] 2020-08-01 18:16:00 177[facility]8 [facility] Weight 2020-08-01 18:16:00 [facility] BMI Calculated 2020-08-01 18:16:00 Memori al [place] Systolic blood 2020-04-07 20:36:00 109 mm[Hg] [facility] pressure Diastolic blood 2020-04-07 20:36:00 78 mm[Hg] [facility] [place] [facility] pressure Heart rate 2020-04-07 20:36:00 77 /min [facility] Body height 2020-04-07 20:36:00 180.3 cm [facility] Body weight 2020-04-07 20:36:00 95.255 kg [facility] BMI 2020-04-07 20:36:00 29.29 kg/m2 [facility] Body temperature 2020-03-28 21:12:00 36.67 Rosette [facility] Respiratory rate 2020-03-28 21:12:00 17 /min [facility] Oxygen saturation in 2020-03-28 21:12:00 99 /min [facility] Arterial blood by Pulse oximetry Temperature Oral (F) 2019-04-12 08:04:00 97.9 F [facility] Heart Rate 2019-04-12 08:04:00 [facility] [place] Respitory Rate 2019-04-12 08:04:00 Memori al [place] Systolic (mm Hg) 2019-04-12 08:04:00 Rafael rial [place] Diastolic (mm Hg) 2019-04-12 08:04:00 Mem orial [place] Temperature Oral (F) 2019-04-12 03:44:00 98.0 F [facility] [place] Heart Rate 2019-04-12 03:44:00 [facility] [place] Respitory Rate 2019-04-12 03:44:00 Memori al [place] Systolic (mm Hg) 2019-04-12 03:44:00 Rafael rial [place] Diastolic (mm Hg) 2019-04-12 03:44:00 Mem orial [place] Temperature Oral (F) 2019-04-11 23:28:00 98.8 F [facility] [place] Heart Rate 2019-04-11 23:28:00 [facility] [place] Respitory Rate 2019-04-11 23:28:00 Memori al [place] Systolic (mm Hg) 2019-04-11 23:28:00 Rafael rial [place] Diastolic (mm Hg) 2019-04-11 23:28:00 Mem orial [place] Height 2019-04-11 19:10:00 180.34 cm [facility] BMI Calculated 2019-04-11 19:10:00 Memori al [place] Weight 2019-04-11 19:10:00 [facility] [place] Systolic (mm Hg) 2018-09-12 20:45:00 Rafael rial [place] Diastolic (mm Hg) 2018-09-12 20:45:00 Mem orial [place] Respitory Rate 2018-09-12 20:45:00 Memori al [place] Systolic (mm Hg) 2018-09-12 19:45:00 Rafael rial [place] Diastolic (mm Hg) 2018-09-12 19:45:00 Mem orial [place] Respitory Rate 2018-09-12 19:45:00 Memori al [place] Systolic (mm Hg) 2018-09-12 18:45:00 Rafael rial [place] Diastolic (mm Hg) 2018-09-12 18:45:00 Mem orial [place] Respitory Rate 2018-09-12 18:45:00 Memori al [place] BMI Calculated 2018-09-12 12:20:00 Memori al [place] Weight 2018-09-12 12:20:00 [facility] [place] Height 2018-09-12 12:20:00 180.34 cm [facility] [place] Height 2018-05-19 21:13:00 180.34 cm [facility] [place] BMI Calculated 2018-05-19 21:13:00 Memori al [place] Weight 2018-05-19 21:13:00 [facility] [place] Systolic (mm Hg) 2018-05-19 21:13:00 Rafael rial [place] Diastolic (mm Hg) 2018-05-19 21:13:00 Mem orial [place] Heart Rate 2018-05-19 21:13:00 [facility] [place] Temperature Oral (F) 2018-05-19 21:13:00 98.6 F [facility] [place] Respitory Rate 2018-04-05 17:00:00 Memori al [place] Systolic (mm Hg) 2018-04-05 16:00:00 Rafael rial [place] Diastolic (mm Hg) 2018-04-05 16:00:00 Mem orial [place] Respitory Rate 2018-04-05 16:00:00 Memori al [place] Systolic (mm Hg) 2018-04-05 15:00:00 Rafael rial [place] Diastolic (mm Hg) 2018-04-05 15:00:00 Mem orial [place] Respitory Rate 2018-04-05 15:00:00 Memori al [place] Systolic (mm Hg) 2018-04-05 14:00:00 Rafael rial [place] Diastolic (mm Hg) 2018-04-05 14:00:00 Mem orial [place] BMI Calculated 2018-04-04 19:56:00 Memori al [place] Height 2018-04-04 19:56:00 180.34 cm [facility] [place] Weight 2018-04-04 19:56:00 [facility] [place] Heart Rate 2018-04-04 12:42:00 [facility] [place] Weight 2018-04-04 12:32:00 [facility] [place] BMI Calculated 2018-04-04 12:32:00 Memori al [place] Height 2018-04-04 12:32:00 180.34 cm [facility] BMI Calculated 2018-03-28 12:54:00 Memori al [place] Weight 2018-03-28 12:54:00 [facility] [place] Height 2018-03-28 12:54:00 180.34 cm [facility] [place] Systolic (mm Hg) 2018-03-28 12:54:00 Rafael rial [place] Diastolic (mm Hg) 2018-03-28 12:54:00 Mem orial [place] Heart Rate 2018-03-28 12:54:00 [facility] [place] Respitory Rate 2018-03-28 12:54:00 Memori al [place] Height 2018-03-27 19:39:00 180.34 cm [facility] [place] Weight 2018-03-27 19:39:00 [facility] BMI Calculated 2018-03-27 19:39:00 Memori al [place] Heart Rate 2018-03-27 19:39:00 [facility] Temperature Oral (F) 2018-03-27 19:39:00 98.3 F [facility] [place] Systolic (mm Hg) 2018-03-27 19:39:00 Rafael rial [place] Diastolic (mm Hg) 2018-03-27 19:39:00 Mem orial [place] BMI Calculated 2018-03-24 14:20:00 Memori al [place] Weight 2018-03-24 14:20:00 [facility] [place] Height 2018-03-24 14:20:00 180.34 cm [facility] [place] Systolic (mm Hg) 2018-03-24 14:19:00 Rafael rial [place] Diastolic (mm Hg) 2018-03-24 14:19:00 Mem orial [place] Systolic (mm Hg) 2018-03-10 15:14:00 Rafael rial [place] Diastolic (mm Hg) 2018-03-10 15:14:00 Mem orial [place] Heart Rate 2018-03-10 15:14:00 [facility] Temperature Oral (F) 2018-03-10 15:14:00 98.1 F [facility] [place] Height 2018-03-10 15:14:00 180.34 cm [facility] [place] Weight 2018-03-10 15:14:00 [facility] BMI Calculated 2018-03-10 15:14:00 Memori al [place] Temperature Oral (F) 2018-03-09 21:16:00 98.5 F [facility] [place] Heart Rate 2018-03-09 21:16:00 [facility] Respitory Rate 2018-03-09 21:16:00 Memori al [place] Systolic (mm Hg) 2018-03-09 21:16:00 Rafael rial [place] Diastolic (mm Hg) 2018-03-09 21:16:00 Mem orial [place] Temperature Oral (F) 2018-03-09 17:05:00 98.7 F [facility] Heart Rate 2018-03-09 17:05:00 [facility] Respitory Rate 2018-03-09 17:05:00 Memori al [place] Systolic (mm Hg) 2018-03-09 17:05:00 Rafael rial [place] Diastolic (mm Hg) 2018-03-09 17:05:00 Mem orial [place] Temperature Oral (F) 2018-03-09 13:29:00 98.4 F [facility] Heart Rate 2018-03-09 13:29:00 [facility] Respitory Rate 2018-03-09 13:29:00 Memori al [place] Systolic (mm Hg) 2018-03-09 13:29:00 Rafael rial [place] Diastolic (mm Hg) 2018-03-09 13:29:00 Mem orial [place] Height 2018-03-08 04:19:00 180.34 cm [facility] [place] Weight 2018-03-08 04:19:00 [facility] BMI Calculated 2018-03-08 04:19:00 Memori al [place] Weight 2018-03-07 20:19:00 [facility] [place] Respitory Rate 2018-03-05 23:00:00 Memori al [place] Systolic (mm Hg) 2018-03-05 23:00:00 Rafael rial [place] Diastolic (mm Hg) 2018-03-05 23:00:00 Mem orial [place] Temperature Oral (F) 2018-03-05 23:00:00 97.9 F [facility] Respitory Rate 2018-03-05 21:00:00 Memori al [place] Systolic (mm Hg) 2018-03-05 21:00:00 Rafael rial [place] Diastolic (mm Hg) 2018-03-05 21:00:00 [facility] Heart Rate 2018-03-05 19:02:00 [facility] Respitory Rate 2018-03-05 19:02:00 [facility] Height 2018-03-05 19:02:00 180.34 cm [facility] BMI Calculated 2018-03-05 19:02:00 [facility] Weight 2018-03-05 19:02:00 [facility] Temperature Oral (F) 2018-03-05 19:02:00 98.4 F [facility] Systolic (mm Hg) 2018-03-05 19:02:00 [facility] Diastolic (mm Hg) 2018-03-05 19:02:00 [facility] Height 2018-02-28 16:46:00 180.34 cm [facility] Weight 2018-02-28 16:46:00 [facility] BMI Calculated 2018-02-28 16:46:00 [facility] Systolic (mm Hg) 2018-02-28 16:46:00 [facility] Diastolic (mm Hg) 2018-02-28 16:46:00 [facility] Temperature Oral (F) 2018-02-28 16:46:00 98.2 F [facility] Heart Rate 2018-02-28 16:46:00 [facility] Respitory Rate 2018-02-28 07:22:00 [facility] Temperature Oral (F) 2018-02-28 07:22:00 98 F [facility] Systolic (mm Hg) 2018-02-28 07:22:00 [facility] Diastolic (mm Hg) 2018-02-28 07:22:00 [facility] Temperature Oral (F) 2018-02-28 06:48:00 98.3 F [facility] Systolic (mm Hg) 2018-02-28 06:48:00 Rafael [facility] Diastolic (mm Hg) 2018-02-28 06:48:00 [facility] Respitory Rate 2018-02-28 06:48:00 [facility] Systolic (mm Hg) 2018-02-28 05:19:00 [facility] Diastolic (mm Hg) 2018-02-28 05:19:00 [facility] Respitory Rate 2018-02-28 05:19:00 [facility] Heart Rate 2018-02-28 01:00:00 [facility] Heart Rate 2018-02-27 23:41:00 [facility] Weight 2018-02-27 20:49:00 [facility] BMI Calculated 2018-02-27 20:49:00 [facility] Heart Rate 2018-02-27 20:49:00 [facility] Temperature Oral (F) 2018-02-27 20:49:00 98.6 F [facility] Height 2018-02-27 20:49:00 180.34 cm [facility] Weight 2017-11-30 15:35:00 [facility] Height 2017-11-30 15:35:00 180.34 cm [facility] BMI Calculated 2017-11-30 15:35:00 [facility] Systolic (mm Hg) 2017-11-30 15:35:00 [facility] Diastolic (mm Hg) 2017-11-30 15:35:00 [facility] Temperature Oral (F) 2017-11-30 15:35:00 98.2 F [facility] Heart Rate 2017-11-30 15:35:00 [facility] Weight 2017-09-23 15:06:00 [facility] Height 2017-09-23 15:06:00 180.34 cm [facility] BMI Calculated 2017-09-23 15:06:00 [facility] Systolic (mm Hg) 2017-09-23 15:06:00 [facility] Diastolic (mm Hg) 2017-09-23 15:06:00 [facility] Heart Rate 2017-09-23 15:06:00 [facility] Temperature Oral (F) 2017-09-23 15:06:00 98.1 F [facility] Systolic (mm Hg) 2017-08-12 00:38:00 [facility] Diastolic (mm Hg) 2017-08-12 00:38:00 [facility] Heart Rate 2017-08-12 00:38:00 [facility] Respitory Rate 2017-08-12 00:38:00 [facility] Temperature Oral (F) 2017-08-12 00:38:00 97.9 F [facility] Systolic (mm Hg) 2017-08-11 23:19:00 [facility] Diastolic (mm Hg) 2017-08-11 23:19:00 [facility] Systolic (mm Hg) 2017-08-11 21:17:00 [facility] Diastolic (mm Hg) 2017-08-11 21:17:00 [facility] Respitory Rate 2017-08-11 21:17:00 [facility] Temperature Oral (F) 2017-08-11 21:17:00 98.0 F [facility] Heart Rate 2017-08-11 21:17:00 [facility] Temperature Oral (F) 2017-08-11 17:25:00 98.2 F [facility] Respitory Rate 2017-08-11 17:25:00 [facility] Heart Rate 2017-08-11 17:25:00 [facility] BMI Calculated 2017-08-09 22:50:00 [facility] Height 2017-08-09 22:50:00 180.34 cm [facility] Weight 2017-08-09 22:50:00 [facility] Weight 2017-08-09 16:26:00 [facility] Height 2017-08-09 16:26:00 180.34 cm [facility] BMI Calculated 2017-08-09 16:26:00 [facility] BMI Calculated 2017-08-09 15:03:00 [facility] Weight 2017-08-09 15:03:00 [facility] Height 2017-08-09 15:03:00 180.34 cm [facility] Heart Rate 2017-08-09 15:03:00 [facility] Temperature Oral (F) 2017-08-09 15:03:00 97.9 F [facility] Systolic (mm Hg) 2017-08-09 15:03:00 [facility] Diastolic (mm Hg) 2017-08-09 15:03:00 [facility] Systolic (mm Hg) 2017-08-08 13:37:00 [facility] Diastolic (mm Hg) 2017-08-08 13:37:00 [facility] Heart Rate 2017-08-08 13:37:00 [facility] Temperature Oral (F) 2017-08-08 13:37:00 97.7 F [facility] Heart Rate 2017-08-08 04:51:00 [facility] Respitory Rate 2017-08-08 04:51:00 [facility] Systolic (mm Hg) 2017-08-08 04:51:00 [facility] Diastolic (mm Hg) 2017-08-08 04:51:00 [facility] Temperature Oral (F) 2017-08-08 04:51:00 98.4 F [facility] Respitory Rate 2017-08-07 20:35:00 [facility] Heart Rate 2017-08-07 20:35:00 [facility] Systolic (mm Hg) 2017-08-07 20:35:00 [facility] Diastolic (mm Hg) 2017-08-07 20:35:00 [facility] Temperature Oral (F) 2017-08-07 20:35:00 98.0 F [facility] Respitory Rate 2017-08-07 17:15:00 [facility] Height 2017-08-07 11:32:00 180.34 cm [facility] Weight 2017-08-07 11:32:00 [facility] BMI Calculated 2017-08-07 11:32:00 [facility] Heart Rate 2017-08-07 10:47:00 [facility] Systolic (mm Hg) 2017-08-07 10:47:00 [facility] Diastolic (mm Hg) 2017-08-07 10:47:00 [facility] Temperature Oral (F) 2017-08-07 10:47:00 98.3 F [facility] Respitory Rate 2017-08-07 10:47:00 [facility] Heart Rate 2017-08-07 00:46:00 [facility] Temperature Oral (F) 2017-08-07 00:46:00 98.3 F [facility] Systolic (mm Hg) 2017-08-07 00:46:00 [facility] Diastolic (mm Hg) 2017-08-07 00:46:00 [facility] Height 2017-08-06 19:12:00 180.34 cm [facility] Weight 2017-08-06 19:12:00 [facility] Systolic (mm Hg) 2017-08-06 19:12:00 [facility] Diastolic (mm Hg) 2017-08-06 19:12:00 [facility] Respitory Rate 2017-08-06 19:12:00 [facility] Temperature Oral (F) 2017-08-06 19:12:00 98.4 F [facility] BMI Calculated 2017-08-06 19:12:00 [facility] Heart Rate 2017-08-06 19:12:00 [facility] BMI Calculated 2017-06-17 15:05:00 [facility] Weight 2017-06-17 15:05:00 [facility] Height 2017-06-17 15:05:00 180.34 cm [facility] Heart Rate 2017-06-17 15:05:00 [facility] Systolic (mm Hg) 2017-06-17 15:05:00 [facility] Diastolic (mm Hg) 2017-06-17 15:05:00 [facility] Temperature Oral (F) 2017-06-17 15:05:00 98.1 F [facility] Systolic (mm Hg) 2015-03-31 20:35:00 [facility] Diastolic (mm Hg) 2015-03-31 20:35:00 [facility] Temperature Oral (F) 2015-03-31 20:35:00 98 F [facility] Respitory Rate 2015-03-31 20:35:00 [facility] Heart Rate 2015-03-31 20:35:00 [facility] Temperature Oral (F) 2015-03-31 17:18:00 98.1 F [facility] Respitory Rate 2015-03-31 17:18:00 [facility] Heart Rate 2015-03-31 17:18:00 [facility] Systolic (mm Hg) 2015-03-31 17:18:00 [facility] Diastolic (mm Hg) 2015-03-31 17:18:00 [facility] Weight 2015-03-31 17:18:00 [facility] BMI Calculated 2015-03-31 17:18:00 [facility] Height 2015-03-31 17:18:00 180.34 cm [facility] Respitory Rate 2014-08-30 17:00:00 [facility] Temperature Oral (F) 2014-08-30 17:00:00 97.9 F [facility] Heart Rate 2014-08-30 17:00:00 [facility] Systolic (mm Hg) 2014-08-30 17:00:00 [facility] Diastolic (mm Hg) 2014-08-30 17:00:00 [facility] Rate 2014-08-30 12:47:00 [facility] Temperature Oral (F) 2014-08-30 12:47:00 97.4 F [facility] Respitory Rate 2014-08-30 12:47:00 [facility] Systolic (mm Hg) 2014-08-30 12:47:00 [facility] Diastolic (mm Hg) 2014-08-30 12:47:00 [facility] Respitory Rate 2014-08-30 09:00:00 [facility] Systolic (mm Hg) 2014-08-30 09:00:00 [facility] Diastolic (mm Hg) 2014-08-30 09:00:00 [facility] Heart Rate 2014-08-30 09:00:00 [facility] Temperature Oral (F) 2014-08-30 09:00:00 97.9 F [facility] Height 2014-08-27 04:00:00 180.34 cm [facility] Weight 2014-08-27 04:00:00 [facility] BMI Calculated 2014-08-27 04:00:00 [facility] Weight 2014-08-26 18:26:00 [facility] Height 2014-08-15 14:43:31 [facility] Weight 2014-08-15 14:43:31 [facility] Temperature Oral (F) 2014-08-15 14:43:31 98.4 F [facility] Heart Rate 2014-08-15 14:43:31 [facility] Systolic (mm Hg) 2014-08-15 14:43:31 [facility] Diastolic (mm Hg) 2014-08-15 14:43:31 [facility] Rate 2014-08-10 12:54:00 [facility] Temperature Oral (F) 2014-08-10 12:54:00 98.2 F [facility] Respitory Rate 2014-08-10 12:54:00 [facility] Systolic (mm Hg) 2014-08-10 12:54:00 [facility] Diastolic (mm Hg) 2014-08-10 12:54:00 [facility] Systolic (mm Hg) 2014-08-10 09:51:00 [facility] Diastolic (mm Hg) 2014-08-10 09:51:00 [facility] Temperature Oral (F) 2014-08-10 09:51:00 98.1 F [facility] Heart Rate 2014-08-10 09:51:00 [facility] Respitory Rate 2014-08-10 09:51:00 [facility] Heart Rate 2014-08-10 04:19:00 [facility] Systolic (mm Hg) 2014-08-10 04:19:00 [facility] Diastolic (mm Hg) 2014-08-10 04:19:00 [facility] Respitory Rate 2014-08-10 04:19:00 [facility] Temperature Oral (F) 2014-08-10 04:19:00 98.2 F [facility] BMI Calculated 2014-08-05 17:30:00 [facility] Weight 2014-08-05 17:30:00 [facility] Height 2014-08-05 17:30:00 180.34 cm [facility] Temperature Oral (F) 2014-04-04 21:54:00 98.0 F [facility] Systolic (mm Hg) 2014-04-04 21:54:00 [facility] Diastolic (mm Hg) 2014-04-04 21:54:00 [facility] Respitory Rate 2014-04-04 21:54:00 [facility] Heart Rate 2014-04-04 21:54:00 [facility] Systolic (mm Hg) 2014-04-04 20:00:00 [facility] Diastolic (mm Hg) 2014-04-04 20:00:00 [facility] Respitory Rate 2014-04-04 20:00:00 [facility] Heart Rate 2014-04-04 20:00:00 [facility] Temperature Oral (F) 2014-04-04 17:50:00 98.4 F [facility] Heart Rate 2014-04-04 17:50:00 [facility] Respitory Rate 2014-04-04 17:50:00 [facility] Systolic (mm Hg) 2014-04-04 17:50:00 [facility] Diastolic (mm Hg) 2014-04-04 17:50:00 [facility] Height 2014-04-04 17:50:00 180.34 cm [facility] Weight 2014-04-04 17:50:00 [facility] BMI Calculated 2014-04-04 17:50:00 [facility] Height 2011-01-29 14:52:00 180.34 cm [facility] Weight 2011-01-29 14:52:00 [facility] Procedures Procedure Date / Time Performing Clinician Source Performed CT ABDOMEN PELVIS W WO 2020-10-23 21:35:16 Bhargavi Garcias [facility] CONTRAST 5-HYDROXYINDOLEACETIC ACID 2020-10-23 13:43:00 Bhargavi Garcias [facility] MRI ABDOMEN W WO CONTRAST 2020-10-06 19:00:04 Rachel Mccarthy [facility] COMPLETE BLOOD COUNT W/ 2020-10-06 13:29:00 Rachel Mccarthy [facility] DIFFERENTIAL Results CBC 2020-10-06 13:29:00 Rachel Mccarthy [facility] [place] MANUAL DIFFERENTIAL 2020-10-06 13:29:00 Rachel Mccarthy [facility] COMPREHENSIVE METABOLIC 2020-10-06 13:29:00 Rachel Mccarthy [facility] PANEL MAGNESIUM LEVEL 2020-10-06 13:29:00 Rachel Mccarthy [facility] [place] PHOSPHORUS LEVEL 2020-10-06 13:29:00 Rachel Mccarthy rmann LACTATE DEHYDROGENASE 2020-10-06 13:29:00 [facility] 2020-10-06 13:29:00 Iliesfarida Rachel [facility] CHROMOGRANIN A 2020-10-06 13:29:00 Iliesfarida Rachel [facility] GASTRIN LVL 2020-10-06 13:29:00 Iliesfarida Rachel [facility] NEURON SPECIFIC ENOLASE, 2020-10-06 13:29:00 IliesSondra iqbalria [facility] SERUM GLUCOSE LEVEL 2020-10-06 13:29:00 Iliesfarida Rachel [facility] BLOOD UREA NITROGEN 2020-10-06 13:29:00 Iliesfarida Rachel [facility] ELECTROLYTE PANEL 2020-10-06 13:29:00 Iliesfarida Rachel [facility] ermann SERUM CREATININE 2020-10-06 13:29:00 Iliesfarida Rachel [facility] rmann .GLOMERULAR FILTRATION RATE 2020-10-06 13:29:00 [facility] TOTAL 2020-10-06 13:29:00 Ilies, Rachel [facility] ALBUMIN LEVEL 2020-10-06 13:29:00 Ilicathy Rachel [facility] ALKALINE PHOSPHATASE 2020-10-06 13:29:00 IliRachel clulen [facility] ALANINE AMINOTRANSFERASE 2020-10-06 13:29:00 IliRachel cullen [facility] ASPARTATE AMINOTRANSFERASE 2020-10-06 13:29:00 [facility] PROTEIN 2020-10-06 13:29:00 Iliesfarida Rachel [facility] FRACTIONATED BILIRUBIN 2020-10-06 13:29:00 IliRachel cullen [facility] OSI MRI ABDOMEN 2020-08-12 18:42:00 Iliesfarida Rachel [facility] [place] OSI PET CT SKULL TO MID 2020-07-28 19:02:00 IliRachel cullen [facility] THIGH OSI CT ABDOMEN AND PELVIS 2020-05-07 19:02:00 Iliescu, Rachel [facility] GYNECOLOGIC PAP TEST 2020-04-07 21:48:00 Ami Suarez [facility] (IMAGE-GUIDED), LIQUID-BASED PREPARATION AND HUMAN PAPILLOMAVIRUS (HPV) (APTIMA) WITH REFLEX TO HPV GENOTYPES 16 AND 18,45 URINALYSIS 2020-03-28 20:15:00 Juliana Gonzalez oseloisa [facility] COMPLETE BLD COUNT 2020-03-28 19:05:00 Julaina Gonzalez [facility] W/AUTO DIFF Aaron COMPREHENSIVE METABOLIC 2020-03-28 19:05:00 Juliana Gonzalez [facility] PANEL Aaron AMYLASE LEVEL 2020-03-28 19:05:00 Juliana Gonzalez ospicarri Walker ESTIMATED GFR 2020-03-28 19:05:00 Juliana Gonzalez oseloisa Walker CT ABDOMEN PELVIS WO 2020-03-19 21:49:27 [facility] QUALITATIVE RT-PCR 2020-03-19 19:53:00 Gaurav Toney [facility] HC COMPLETE BLD COUNT 2020-03-19 19:40:00 Gaurav Toney [facility] W/AUTO DIFF COMPREHENSIVE METABOLIC 2020-03-19 19:40:00 Gaurav Toney [facility] PANEL LACTIC ACID, I-STAT 2020-03-19 19:40:00 [facility] 2020-03-19 19:40:00 Gaurav Toney spital SEDIMENTATION RATE 2020-03-19 19:40:00 Gaurav Toney [facility] C-REACTIVE PROTEIN 2020-03-19 19:40:00 Gaurav Toney [facility] LIPASE LEVEL 2020-03-19 19:40:00 Gaurav Toney spital ESTIMATED GFR 2020-03-19 19:40:00 Gaurav Toney spital URINE CULTURE 2020-03-19 18:52:00 Gaurav Toney spital URINALYSIS 2020-03-19 18:52:00 Gaurav Toney Ho spital Selective catheter 2018-09-12 15:43:00 [facility] placement, internal carotid artery, unilateral, with angiography of the ipsilateral intracranial carotid circulation and all associated radiological supervision and interpretation, includes angiography of the extracranial carotid and ce Selective catheter 2018-09-12 15:43:00 [facility] placement, common carotid or innominate artery, unilateral, any approach, with angiography of the ipsilateral extracranial carotid circulation and all associated radiological supervision and interpretation, includes angiography of the c Transcatheter placement of 2018-04-04 13:14:00 [facility] an intravascular stent(s), open or percutaneous, including radiological supervision and interpretation and including angioplasty within the same vessel, when performed; initial vein Injection, anesthetic 2018-03-01 00:44:00 Ariel al [facility] agent; greater occipital nerve Chemodenervation of 2018-01-03 23:34:00 [facility] muscle(s); muscle(s) innervated by facial, trigeminal, cervical spinal and accessory nerves, bilateral (eg, for chronic migraine) Spinal puncture, lumbar, 2017-08-11 16:52:26 [facility] orial [facility] diagnostic Spinal 2014-07-17 05:00:00 [facility] operation<sup>1</sup> Hysterectomy 2014-02-07 00:00:00 [facility] Cholecystectomy [facility] Thyroidectomy [facility] section [facility] n Appendectomy [facility] Plan of Care Planned Planned Date Details Comments Source Activity Future 1986 COVID-19 Vaccination (1) [code = MD [facility] Scheduled Test 00:00:00 COVID-19 Vaccination (1)] Future COVID-19 VACCINE (1) [code = [facility] Scheduled Test COVID-19 VACCINE (1)] Hosp ital Future Hepatitis C screening (procedure) [facility] Scheduled Test [code = 639129976] Hospita l Future Screening for malignant neoplasm of [facility] Scheduled Test cervix (procedure) [code = Hospital 716096396] Future INFLUENZA VACCINE [code = INFLUENZA [facility] Scheduled Test VACCINE] Hospital Future Upcoming [facility] Scheduled Test EncountersDateTypeSpecialtyCare Fowler KtdzBogfbmbjthd93/30/2021ncillary ProcedureRadiologyRachel Mccarthy MD[address] [place], [place] [phone] (Fax)10/09/2020Rachel Gonzalez MD[address] [place], [place] [phone] (Fax)Health MaintenanceDue DateLast DoneCommentsCOVID-19 Vaccination (1)1993 [code = Upcoming EncountersDateTypeSpecialtyCare QqnmUtxgzvdjbsz27/30/2021Ancillary ProcedureRadiologyRachel Mccarthy MD[address] [place], [place] [phone] (Fax)10/09/2020Rachel Gonzalez MD[address] [place] [address] [phone] (Fax)Health MaintenanceDue DateLast DoneCommentsCOVID-19 Vaccination (1)1993] Future COVID-19 Vaccination (1) [code = [facility] Scheduled Test COVID-19 Vaccination (1)] [facility] Future Upcoming [facility] Scheduled Test EncountersDateTypeSpecialtyCare [facility] ZxzwLsnvktpcvoq64/30/2021Rachel Block MD[address] [place], [place] [phone] (Fax)Health MaintenanceDue DateLast DoneCommentsCOVID-19 Vaccination (1)1993 [code = Upcoming EncountersDateTypeSpecialtyCare BxesXjejkahqlwg44/30/2021Rachel Block MD[address] [place], [place] [phone] (Fax)Health MaintenanceDue DateLast DoneCommentsCOVID-19 Vaccination (1)1993] Future Upcoming [facility] Scheduled Test EncountersDateTypeSpecialtyCare [facility] NktcMogyrobfmmu88/30/2021Rachel Block MD[address] [place], [place] [phone] (Fax)Health MaintenanceDue DateLast DoneCommentsCOVID-19 Vaccination (1)1993 [code = Upcoming EncountersDateTypeSpecialtyCare AxhdZhwkorcdfok74/30/2021[facility] CenterR[facility]cc[facility] MD[address] [place] [address] [phone] (Fax)Health MaintenanceDue DateLast DoneCommentsCOVID-19 Vaccination (1)1993] Future Upcoming [facility] Scheduled Test EncountersDateTypeSpecialtyCare [facility] ZqjlJafbhouflxb09/30/2021[facility] ProcedureRadRachel Aguilar MD[address] [place] [address] [phone] (Fax)10/09/2020[facility] MD[address] [place] [address] [phone] (Fax)Health MaintenanceDue DateLast DoneCommentsCOVID-19 Vaccination (1)1993 [code = Upcoming EncountersDateTypeSpecialtyCare BuprMsjqcfdlocy95/30/2021[facility] ProcedureRadRachel Aguilar MD[address] [place], [place] [phone] (Fax)10/09/2020[facility] Rachel Henderson MD[address] [place], [place] [phone] (Fax)Health MaintenanceDue DateLast DoneCommentsCOVID-19 Vaccination (1)1993] Future COVID-19 Vaccination (1) [code = [facility] Scheduled Test COVID-19 Vaccination (1)] [facility] Future Upcoming [facility] Scheduled Test EncountersDateTypeSpecialtyCare [facility] ZeeoQsopebwcunp30/30/2021Rachel Block MD[address] [place], [place] [phone] (Fax)Health MaintenanceDue DateLast DoneCommentsCOVID-19 Vaccination (1)1993 [code = Upcoming EncountersDateTypeSpecialtyCare HxjqOosrkeadigd52/30/2021Rachel Block MD[address] [place], [place] [phone] (Fax)Health MaintenanceDue DateLast DoneCommentsCOVID-19 Vaccination (1)1993] Future Upcoming [facility] Scheduled Test EncountersDateTypeSpecialtyCare [facility] UnodJrirqapvfkk29/30/2021Rachel Block MD[address] [place], [place] [phone] (Fax)Health MaintenanceDue DateLast DoneCommentsCOVID-19 Vaccination (1)1993 [code = Upcoming EncountersDateTypeSpecialtyCare ZjtsWtzjqtbcokx05/30/2021Rachel Block MD[address] [place], [place] [phone] (Fax)Health MaintenanceDue DateLast DoneCommentsCOVID-19 Vaccination (1)1993] Future Upcoming [facility] Scheduled Test EncountersDateTypeSpecialtyCare [facility] OgiqVsrvmtwioop65/30/2021Rachel Block MD[address] [place], [place] [phone] (Fax)Health MaintenanceDue DateLast DoneCommentsCOVID-19 Vaccination (1)1993 [code = Upcoming EncountersDateTypeSpecialtyCare DpzuDplmprzupel58/30/2021Rachel Block MD[address] [place], [place] [phone] (Fax)Health MaintenanceDue DateLast DoneCommentsCOVID-19 Vaccination (1)1993] Future Upcoming [facility] Scheduled Test EncountersDateTypeSpecialtyCare [facility] BgolScadsiavhdf52/30/2021amberillary ProcedureRadiologyRachel Mccarthy MD[address] [place] [address] [phone] (Fax)10/09/2020[facility] Rachel Henderson MD[address] [place] [address] [phone] (Fax)Health MaintenanceDue DateLast DoneCommentsCOVID-19 Vaccination (1)1993 [code = Upcoming EncountersDateTypeSpecialtyCare ZvmcRuqajydwvao28/30/2021Aamberillary ProcedureRadRachel Aguilar MD[address] [place] [address] [phone] (Fax)10/09/2020[facility] Rachel Henderson MD[address] [place] [address] [phone] (Fax)Health MaintenanceDue DateLast DoneCommentsCOVID-19 Vaccination (1)1993] Future COVID-19 Vaccination (1) [code = [facility] Scheduled Test COVID-19 Vaccination (1)] [facility] Future Upcoming [facility] Scheduled Test EncountersDateTypeSpecialtyCare Fowler RtdeEfuccpwisum86/30/2021Tejhoan Mcdanielnternal Rachel Henderson MD[address] [place], [place] [phone] (Fax)Health MaintenanceDue DateLast DoneCommentsCOVID-19 Vaccination (1)1993 [code = Upcoming EncountersDateTypeSpecialtyCare AqpfUaxsdgsrugc18/30/2021Rachel Block MD[address] [place], [place] [phone] (Fax)Health MaintenanceDue DateLast DoneCommentsCOVID-19 Vaccination (1)1993] Future Upcoming [facility] Scheduled Test EncountersDateTypeSpecialtyCare [facility] BgrjHabhvbhspnc10/30/2021Rachel Block MD[address] [place], [place] [phone] (Fax)Health MaintenanceDue DateLast DoneCommentsCOVID-19 Vaccination (1)1993 [code = Upcoming EncountersDateTypeSpecialtyCare TzkwAvosipnnayw07/30/2021Rachel Block MD[address] [place], [place] [phone] (Fax)Health MaintenanceDue DateLast DoneCommentsCOVID-19 Vaccination (1)1993] Future Upcoming [facility] Scheduled Test EncountersDateTypeSpecialtyCare [facility] BkjvRkvjzmxlavj47/30/2021Rachel Block MD[address] [place], [place] [phone] (Fax)Health MaintenanceDue DateLast DoneCommentsCOVID-19 Vaccination (1)1993 [code = Upcoming EncountersDateTypeSpecialtyCare CigxLlkdormzqto03/30/2021Rachel Block MD[address] [place], [place] [phone] (Fax)Health MaintenanceDue DateLast DoneCommentsCOVID-19 Vaccination (1)1993] Future Upcoming [facility] Scheduled Test EncountersDateTypeSpecialtyCare Fowler YrbtTxgrvxhfiav12/30/2021Ancillary ProcedureRachel Quick MD[address] [place], [place] [phone] (Fax)10/09/2020[facility] Rachel Henderson MD[address] [place], [place] [phone] (Fax)Health MaintenanceDue DateLast DoneCommentsCOVID-19 Vaccination (1)1993 [code = Upcoming EncountersDateTypeSpecialtyCare QnywWartxxwvicy13/30/2021ncillary ProcedureRachel Quick MD[address] [place] [address] [phone] (Fax)10/09/2020[facility] Rachel Henderson MD[address] [place], [place] [phone] (Fax)Health MaintenanceDue DateLast DoneCommentsCOVID-19 Vaccination (1)1993] Future COVID-19 Vaccination (1) [code = [facility] Scheduled Test COVID-19 Vaccination (1)] [facility] Future Upcoming [facility] Scheduled Test EncountersDateTypeSpecialtyCare Forrest XforSbkjanbyyof30/30/2021Rachel Block MD[address] [place], [place] [phone] (Fax)Health MaintenanceDue DateLast DoneCommentsCOVID-19 Vaccination (1)1993 [code = Upcoming EncountersDateTypeSpecialtyCare DxsrGxljxtqmvlr43/30/2021Rachel Block MD[address] [place], [place] [phone] (Fax)Health MaintenanceDue DateLast DoneCommentsCOVID-19 Vaccination (1)1993] Future Upcoming [facility] Scheduled Test EncountersDateTypeSpecialtyCare Fowler TlvdLgauepvdsbb39/30/2021Rachel Block MD[address] [place], [place] [phone] (Fax)Health MaintenanceDue DateLast DoneCommentsCOVID-19 Vaccination (1)1993 [code = Upcoming EncountersDateTypeSpecialtyCare KfkrJpcpgcuylvu10/30/2021Rachel Block MD[address] [place], [place] [phone] (Fax)Health MaintenanceDue DateLast DoneCommentsCOVID-19 Vaccination (1)1993] Future Upcoming [facility] Scheduled Test EncountersDateTypeSpecialtyCare Forrest VetsNzqmjgxvber44/30/2021Rachel Block MD[address] [place], [place] [phone] (Fax)Health MaintenanceDue DateLast DoneCommentsCOVID-19 Vaccination (1)1993 [code = Upcoming EncountersDateTypeSpecialtyCare XugxAskrrrjzlgw38/30/2021Rachel Block MD[address] [place], [place] [phone] (Fax)Health MaintenanceDue DateLast DoneCommentsCOVID-19 Vaccination (1)1993] Future Upcoming [facility] Scheduled Test EncountersDateTypeSpecialtyForest View Hospitalann XfssBkzfrzniuob14/30/2021Ancillary ProcedureRadiologyRachel Mccarthy MD[address] [place], [place] [phone] (Fax)10/09/2020YeyocineInternal Rachel Henderson MD[address] [place], [place] [phone] (Fax)Health MaintenanceDue DateLast DoneCommentsCOVID-19 Vaccination (1)1993 [code = Upcoming EncountersDateTypeSpecialtyCare DxteQhdzzcbtsod53/30/2021ncillary ProcedureRadiologyRachel Mccarthy MD[address] [place], [place] [phone] (Fax)10/09/2020YeyocineInternal Rachel Henderson MD[address] [place], [place] [phone] (Fax)Health MaintenanceDue DateLast DoneCommentsCOVID-19 Vaccination (1)1993] Future COVID-19 Vaccination (1) [code = [facility] Scheduled Test COVID-19 Vaccination (1)] Fowler Future Upcoming [facility] Scheduled Test EncountersDateTypeSpecialtyCare Forrest LysdJzugomscbxu36/30/2021Rachel Block MD[address] [place], [place] [phone] (Fax)Health MaintenanceDue DateLast DoneCommentsCOVID-19 Vaccination (1)1993 [code = Upcoming EncountersDateTypeSpecialtyCare VwkxBfjvrespvlw27/30/2021Rachel Block MD[address] [place], [place] [phone] (Fax)Health MaintenanceDue DateLast DoneCommentsCOVID-19 Vaccination (1)1993] Future Upcoming [facility] Scheduled Test EncountersDateTypeSpecialtyCare Forrest JimfUtbphbnkwny99/30/2021Rachel Block MD[address] [place], [place] [phone] (Fax)Health MaintenanceDue DateLast DoneCommentsCOVID-19 Vaccination (1)1993 [code = Upcoming EncountersDateTypeSpecialtyCare OrvsVscvxjlrwwb14/30/2021Rachel Block MD[address] [place], [place] [phone] (Fax)Health MaintenanceDue DateLast DoneCommentsCOVID-19 Vaccination (1)1993] Future Upcoming [facility] Scheduled Test EncountersDateTypeSpecialtyBeaumont Hospital KxfiXslwmnzxbxx94/30/2021Tejhoan Arcinieganal Rachel Henderson MD[address] [place], [place] [phone] (Fax)Health MaintenanceDue DateLast DoneCommentsCOVID-19 Vaccination (1)1993 [code = Upcoming EncountersDateTypeSpecialtyCare OueuTjpongpggdl43/30/2021Rachel Block MD[address] [place], [place] [phone] (Fax)Health MaintenanceDue DateLast DoneCommentsCOVID-19 Vaccination (1)1993] Future Upcoming [facility] Scheduled Test EncountersDateTypeSpecialtyBeaumont Hospital RosrTbftgiakdcv24/30/2021Ancillary ProcedureRadiologyRachel Mccarthy MD[address] [place], [place] [phone] (Fax)10/09/2020YeyocineInternal Rachel Henderson MD[address] [place], [place] [phone] (Fax)Health MaintenanceDue DateLast DoneCommentsCOVID-19 Vaccination (1)1993 [code = Upcoming EncountersDateTypeSpecialtyCare QidoQvaslqwvoxr14/30/2021Ancillary ProcedureRadiologyRachel Mccarthy MD[address] [place], [place] [phone] (Fax)10/09/2020TelemedicineInternal MedicineRachel Mccarthy MD[address] [place], [place] [phone] (Fax)Health MaintenanceDue DateLast DoneCommentsCOVID-19 Vaccination (1)1993] Future COVID-19 Vaccination (1) [code = [facility] Scheduled Test COVID-19 Vaccination (1)] Forrest Encounters Start End Encounter Admission Attending Care Care Encounter Source Date/Time Date/Time Type Type Clinicians Facility Department ID 2021-01-19 Outpatient HALEY LIMON [facility] [address] [facility] 11:31:30 2020-10-20 [address] [facility] [id number] [place] 01:04:59 GISELALocated within [facility] 2020-10-14 Outpatient SYSTEM, [facility] [id number] 10:59:28 PROVIDER Mark o n 2020-08-28 Outpatient [place], [place] [id number] 12:42:12 PROVIDER Mark o n 2020-06-04 Outpatient SYSTEM, [place] [id number] 11:53:33 PROVIDER Mark o n 2021-02-13 2021-02-13 Emergency E FLEX, DARSHAN [facility] [address] [facility] 12:45:00 18:37:00 KAI 2021-01-13 2021-01-13 EXT [facility] OP Haley Limon EXT MSRDP 1.2.840.1 14 [id number] MS 00:00:00 00:00:00 H LOCATION 350.1.13.58 H [facility] 9.2.7.2.686 [id number] 2021-01-05 2021-01-05 [facility] [place] [facility] 00:00:00 LUIS 985 Method i 2020-12-26 2020-12-26 [facility] [place] 00:00:00 00:00:00 LUIS [address] 2020-12-03 2020-12-03 Outpatient TAN [facility] [address] [facility] 06:53:00 06:54:00 GISELA 2020-12-03 2020-12-03 Outpatient [facility] [id number] [place] 00:00:00 00:00:[address] 2020-11-25 2020-11-25 Outpatient HALEY LIMON [facility] [address] [facility] 13:49:00 13:49:00 2020-11-25 2020-11-25 Outpatient LISET, [facility] [id number] [place] 00:00:00 00:00:00 LUIS [address] 2020-11-12 2020-11-12 Outpatient GISSELLE, [facility] [id number] [place] 00:00:00 00:00:00 AMI 834 Method i 2020-10-27 2020-10-27 Telephone nullFlavo Internal [id number] Memoria 00:00:00 00:00:00 r Medicine l [facility] 2020-10-27 2020-10-27 Orders nullFlavo Internal [id number] Memoria 00:00:00 00:00:00 Only r Medicine l [facility] 2020-10-27 2020-10-27 Orders nullFlavo Internal [id number] Memoria 00:00:00 00:00:00 Only r Medicine l [facility] 2020-10-23 2020-10-24 Hospital nullFlavo Diagnostic [id number] Memoria 17:43:00 04:59:00 Encounter r Laboratory l [facility] 2020-10-23 2020-10-23 Outpatient EL MDA MDA [id number] 12:43:00 23:59:00 Mark o n 2020-10-23 2020-10-[address] Imaging [id number] Memoria 18:55:00 21:20:00 Procedure r l Fowler 2020-10-23 2020-10-23 Outpatient EL MDA MDA [id number] 13:01:02 13:01:02 Mark o n 2020-10-23 2020-10-23 Travel ABRAM TRINI [id number] Memoria 00:00:00 00:00:00 l Fowler 2020-10-23 2020-10-23 Orders nullFlavo Internal [id number] Memoria 00:00:00 00:00:00 Only r Medicine l [facility] 2020-10-21 2020-10-21 Orders nullFlavo Internal [id number] Memoria 00:00:00 00:00:00 Only r Medicine l [facility] 2020-10-21 2020-10-21 Telephone nullFlavo Internal [id number] Memoria 00:00:00 00:00:00 r Medicine l [facility] 2020-10-21 2020-10-21 Orders nullFlavo Internal [id number] Memoria 00:00:00 00:00:00 Only r Medicine l [facility] 2020-10-10 2020-10-10 Outpatient THOSANI, [facility] [address] [facility] 08:42:00 15:27:00 GISELA 2020-10-10 2020-10-10 EXT [facility] OP THOSANI, EXT MSRDP 1.2.840.114 [id number] MS 11:25:25 12:10:25 GISELA LOCATION 350.1.13.58 [facility] 9.2.7.2.686 [id number] 2020-10-06 2020-10-06 Ancillary nullFlavo MD Galvan 10 [id number] Memoria 18:15:00 20:00:00 Procedure r Forrest Urbina [facility] 2020-10-06 2020-10-06 Outpatient KEVYN MCCARTHY MDA MDA [id number] 12:34:33 12:34:33 RACHEL hicks 2020-10-06 2020-10-06 Outpatient EL ILICATHY MDA MDA [id number] 08:28:59 08:31:13 RACHEL Mark o n 2020-10-06 2020-10-06 Travel [facility] [id number] Memoria 00:00:00 00:00:00 [facility] 2020-10-06 2020-10-06 Orders nullFlavo Internal [id number] Memoria 00:00:00 00:00:00 Only r Medicine l [facility] 2020-09-23 2020-09-23 Ancillary nullFlavo Image [id number] Memoria 01:10:00 01:15:00 Procedure r Library l Fowler 2020-09-23 2020-09-23 Ancillary nullFlavo Image [id number] Memoria 01:05:00 01:10:00 Procedure r Library l Fowler 2020-09-23 2020-09-23 Ancillary nullFlavo Image [id number] Memoria 01:00:00 01:05:00 Procedure r Library [facility] 2020-09-22 2020-09-22 Office nullFlavo Internal [id number] Memoria 18:00:00 20:21:11 Visit r Medicine [facility] 2020-09-22 2020-09-22 NPR nullFlavo MDA PATIENT [id number] Memoria 16:30:00 17:01:35 r ACCESS l Fowler 2020-09-22 2020-09-22 Outpatient EL ILIESCU, MDA MDA [id number] 12:04:03 15:21:11 RACHEL Mark o n 2020-09-22 2020-09-22 Outpatient EL ILIESCU, MDA MDA [id number] 13:55:50 13:55:50 RACHEL Mark o n 2020-09-22 2020-09-22 Outpatient EL ILIESCU, MDA MDA [id number] 13:51:15 13:51:15 RACHEL Mark o n 2020-09-22 2020-09-22 Outpatient EL ILIESCU, MDA MDA [id number] 13:38:18 13:38:18 RACHEL Mark o n 2020-09-22 2020-09-22 Outpatient EL MDA MDA [id number] 12:01:24 12:01:35 Mark o fabiola 2020-09-22 2020-09-22 [facility] [id number] Memoria 00:00:00 00:00:00 [facility] 2020-09-19 2020-09-19 Outpatient THOSANI, [facility] [address] [facility] 12:15:00 16:00:00 GISELA 2020-09-09 2020-09-09 EXT [facility] OP EXT MSRDP 1.2.840.114 1 [id number] MS 00:00:00 00:00:00 LOCATION 350.1.13.58 H ealth 9.2.7.2.686 [id number] 2020-09-09 2020-09-09 EXT MHH OP EXT MSRDP 1.2.840.114 1 [id number] [place] 00:00:00 00:00:00 LOCATION 350.1.13.58 H ealth 9.2.7.2.686 [id number] 2020-09-09 2020-09-09 EXT MHH OP EXT MSRDP 1.2.840.114 1 [id number] [place] 00:00:00 00:00:00 LOCATION 350.1.13.58 H ealth 9.2.7.2.686 [id number] 2020-09-09 2020-09-09 EXT MHH OP Haley Limon EXT MSRDP 1.2.840.1 14 [id number] MS 00:00:00 00:00:00 H LOCATION 350.1.13.58 H ealth 9.2.7.2.686 [id number] 2020-08-01 2020-08-30 [facility] 0 [facility] 12:46:00 23:59:00 2020-08-06 2020-08-06 EXT MHH OP Haley Limon EXT MSRDP 1.2.840.1 14 [id number] MS 00:00:00 00:00:00 H LOCATION 350.1.13.58 H ealth 9.2.7.2.686 [id number] 2020-08-01 2020-08-01 EXT MHH OP Haley Limon EXT MSRDP 1.2.840.1 14 [id number] MS 00:00:00 00:00:00 H LOCATION 350.1.13.58 H ealth 9.2.7.2.686 [id number] 2020-08-01 2020-08-01 EXT MHH OP Haley Limon EXT MSRDP 1.2.840.1 14 [id number] MS 00:00:00 00:00:00 H LOCATION 350.1.13.58 H ealth 9.2.7.2.686 [id number] 2020-06-03 2020-06-03 Travel [facility] [id number] [facility] 00:00:00 00:00:00 l Forrest 2020-05-30 2020-05-30 Refill Peakes, 1.2.840.1 [id number] Methodi 00:00:00 00:00:[address] [place] 3.430.2.7 Hospit a .3.968457 l .8 2020-05-05 2020-05-05 Telephone Leann, 1.2.840.1 [id number] [id number] Methodi 00:00:00 00:00:[address] 3.430.2.7 Hospit a .3.900147 l .8 2020-04-30 2020-04-30 Refill Peakes, 1.2.840.1 [id number] 9923 Methodi 00:00:00 00:00:[address] [place] 3.430.2.7 Hospit a .3.478148 l .8 2020-04-30 2020-04-30 Refill Leann, 1.2.840.1 [id number] 9235 Methodi 00:00:00 00:00:[address] 3.430.2.7 Hospit a .3.992471 l .8 2020-04-07 2020-04-07 Office Peakes, 1.2.840.1 [id number] 5062 Methodi 14:09:04 15:13:52 Visit Thomson [address]206.1.[address] [place] 3.430.2.7 Hospit a .3.985536 l .8 2020-04-07 2020-04-07 Refill Peakes, 1.2.840.1 [id number] 447284 6710 Methodi 00:00:00 00:00:[address] [place] 3.430.2.7 Hospit a .3.360461 l .8 2020-04-07 2020-04-07 Travel 1.2.840.1 1.2.795.762 4436 621920 Methodi 00:00:00 00:00:[address] 3.430.2.7 0.2.7.3.698 Ho spita .3.014916 084.8 l .8 2020-03-31 2020-03-31 Refill Peakes, 1.2.840.1 [id number] 099864 8864 Methodi 00:00:00 00:00:[address] [place] 3.430.2.7 Hospit a .3.241863 l .8 2020-03-30 2020-03-30 Refill Peakes, 1.2.840.1 [id number] 734223 2332 Methodi 00:00:00 00:00:[address] [place] 3.430.2.7 Hospit a .3.476647 l .8 2020-03-28 2020-03-28 Emergency Gonzalez, 1.2.840.1 [id number] 2099 361115 Methodi 12:43:00 15:12:[address] Aaron 3.430.2.7 Hospit a .3.741966 l .8 2020-03-28 2020-03-28 Travel 1.2.840.1 1.2.934.430 8778 121783 Methodi 00:00:00 00:00:[address] 3.430.2.7 0.2.7.3.698 Ho spita .3.429113 084.8 l .8 2020-03-20 2020-03-20 Telephone [facility], 1.2.840.1 [id number] Methodi 00:00:00 00:00:[address] 3.430.2.7 Hospit a .3.134642 l .8 2020-03-19 2020-03-19 Emergency Nuszen, 1.2.840.1 [id number] 2099 168428 Methodi 12:33:00 16:44:[address] 3.430.2.7 Hospit a .3.738808 l .8 2020-03-19 2020-03-19 Travel 1.2.840.1 1.2.095.112 5490 061948 Methodi 00:00:00 00:00:[address] 3.430.2.7 0.2.7.3.698 Ho spita .3.045611 084.8 l .8 2020-03-19 2020-03-19 Telephone Jose, 1.2.840.1 [id number] 761 [id number] Methodi 00:00:00 00:00:[address] 3.430.2.7 Hospit a .3.559724 l .8 2020-03-03 2020-03-03 Travel 1.2.840.1 1.2.333.463 2417 550115 Methodi 00:00:00 00:00:[address] 3.430.2.7 0.2.7.3.698 Ho spita .3.966125 084.8 l .8 2019-06-13 2019-06-13 [facility] 1.2.832.469 [id number] 00:00:00 00:00:00 Ivana [employer] 350.1.13.10 [place] 4.2.7.2.686 Professio [id number] nal [facility] Office Building One 2019-06-13 2019-06-13 Telephone Yessi, [facility] 1.2.144.745 3465 7544 Univers 00:00:00 00:00:00 Ivana [facility] 350.1.13.10 it y of [place] 4.2.7.2.686 Jori as Professio [id number] Mi dical [address] Office Building One 2019-06-11 2019-06-11 Urgent Pob1, Acute Care Clinic [facility] 1. 2.840.114 [id number] Univers 15:57:29 16:17:29 Ivana Martin [facility] 350.1.13.10 rmoeo [facility] 4.2.7.2.686 Jori as Neva [id number] [address] Office [facility] 2019-06-11 2019-06-11 [facility] [id number] [facility] 16:00:00 16:00:00 [facility] 2019-04-11 2019-04-12 Emergency E FELDER, [facility] [address] [facility] 12:15:00 02:06:00 JAYCOB 2018-09-12 2018-09-12 Outpatient [facility] [address] [facility] 06:29:00 06:29:00 Results Test Description Test Time Test Comments Results Result Comments Source 5 Hydroxyindoleacetic Acid Urine 2020-10-28 22:24:14 Test Item Value Reference Range Interpretation Comme nts U24 5-HIAA-Traylor (test code = U24 5-HIAA-Traylor) 3.6 [facility] Hydroxyindoleacetic Acid Ezygw4158-72-62 22:24:14 Test Item Value Reference Range Interpretation Comments Hrs 5-HIAA-Traylor (test code = Hrs 24 5-HIAA-Rtaylor) [facility] Hydroxyindoleacetic Acid Hdyzq2185-50-49 22:24:14 Test Item Value Reference Range Interpretation Comments TV 5-HIAA-Traylor (test code = TV 1700 5-HIAA-Traylor) [facility]5 Hydroxyindoleacetic Acid Ejpbp5548-62-79 22:24:14 Test Item Value Reference Range Interpretation Comments <td ID="[id number]">U24 3.6 5-HIAA-Traylor</td><td>3.6</td><td> <=7.0 mg/24hr</td><td>[facility]</td><td ID="[id number]"/> (test code = <td ID="[id number]">U24 5-HIAA-Traylor</td><td>3.6</td><td><=7. 0 mg/24hr</td><td>[facility]</td><td ID="[id number]"/>) [facility]5 Hydroxyindoleacetic Acid Deout2527-31-74 22:24:14 Test Item Value Reference Range Interpretation Comments <td ID="[id number]">Hrs 24 5-HIAA-Traylor</td><td>24</td><td>h r</td><td>[facility]</td><td ID="[id number]" /> (test code = <td ID="[id number]">Hrs 5-HIAA-Traylor</td><td>24</td><td>hr</td&g t;<td>[facility]</td><td ID="[id number]"/>) [facility] Chuyann5 Hydroxyindoleacetic Acid Ttzxf0578-65-57 22:24:14 Test Item Value Reference Range Interpretation Comments U24 3.6 See_Comment [Automated mes lucita] The system 5-HIAA-Traylor which generated this result (test code = transmitted ref erence range: 1695-6) <=7.0 mg/24hr. The reference range was not u sed to interpret this result as normal/abnormal. Hrs 24 hr 5-HIAA-Traylor (test code = 84935-1) TV 1700 mL -----ADDITIONAL 5-HIAA-Traylor INFORMATION---- Liq (test code = uid Chromatogra phy-Tandem Mass 3167-4) Spectrometry (L C-MS/MS).Values obtained from d ifferent assay methods or kits may bedifferent and cannot be u sed interchangeably . The resultscannot b e interpreted as absolute eviden ce for the presenceor abse nce of malignant disease.This te st was developed and its perform ance characteristics determined by [facility] in a man ner consistent with CLIArequir ements. This test has not been cl eared or approved bythe U.S. Food and Drug Administration. Test Performed by:[address], [place], [place] [address]Btr Director: Han Pichardo M.D. Ph.D.; CLIA# [id number] MD GalvanGynecologic Pap Test (Image-guided), Liquid-based Preparation and Human Papillomavirus (HPV) (Aptima) With Reflex to HPV Genotypes 16 and 18,45 16 and 160333-11-22 19:08:00 Test Item Value Reference Range Interpretation Comments Diagnosis (test Comment NEGATIVE FOR code = 32599-1) INTRAEPITHEL IAL LESION OR MALIGNANCY. Specimen adequacy Comment Satisfacto ry for (test code = [place] [address]-8) endocervical co mponent is identified. Performed by: Comment Jennifer mark, (test code = Cytotechnologis t (ASCP) 75936-7) Comment (test . code = 70777-2) Note: (test code Comment The Pap sme ar is a = 8617291) screening test designed to aid in the d etection ofpremalignant and malignant condi tions of the uterine cer vix. It is not adiagnos tic procedure and s hould not be used as the sole means of detectingcervic al cancer. Both false-positive and false-negative reports do occur. Test methodology Comment This liquid based (test code = ThinPrep(R) pap test 22544-8) was screened wi th theuse of an im age guided system. HPV Aptima (test Negative Negative This nuclei c acid code = 54237-7) amplificatio n test detects fourtee n high-riskHPV ty pes (16,18,31,33,35 ,39,45,5 1,52,56,58,59,6 6,68) withoutdifferen tiation. SKYLAR (test code = Performed at: SKYLAR) 01 - [facility] [facility], [place] [id number] Director: Alissa Christine MD, Phone: [phone] rmed at: 02 - [facility] [id number] Director: Joe Carroll MD, Phone: [phone] [facility] at: 03 - [facility] [facility], [place], [place] [id number] Director: Alissa Christine MD, Phone: [phone] [facility] Comment: No. of containers..01 ThinPrep Vial [facility] Wo Lsmdhooy1458-25-85 22:04:43EXAMINATION: CT ABDOMEN PELVIS WO CONTRAST CLINICAL [...] of bowel obstruction, perforation, or intra-abdominal abscess. [facility]-[id number] Interface, Radiology Results Incoming - 03/19/2020 4:07 [...] evidence of bowel obstruction, perforation, or intra-abdominal abscess.[facility]-[id number] [facility] BRAIN AND PITUITARY WO/WCLINICAL INDICATION: R51 Headache, visual disturbance.MODALITY: Siemens Skyra 3.0 Elenita MRITECHNIQUE: Multiplanar SE, FSE and inversion recovery pulse sequences of the brain were performed without contrast enhancement. High- resolution coronal and sagittal T1 and T2 imaging [...] significant white matter lesions. There are no intra cranial masses, hydrocephalus, or hemorrhages. Brainstem, midbrain and cerebellum are normal. Internal auditory canals are normal. The craniocervical junction is normal without mass or Chiari malformation.Paranasal sinuses and mastoid air cells are clear.There is no pathologic intracranial enhancement.
[2021-02-18] MEDS ORDERED: ONDANSETRON 4 MG/2 ML VIAL ONE (12:52)
[2021-02-18] MEDS ORDERED: MAGNES/ALUMIN/SIMET 30ML UCUP ONE (12:52)
[2021-02-18] MEDS ORDERED: NA CHLORIDE 0.9% 1,000 ML ONE (12:52)
[2021-02-18] MEDS ORDERED: MORPHINE 4 MG/ML SYR ONE (12:52)
[2021-02-18] MEDS ORDERED: LIDOCAINE VISCOUS 2% SOLN 15 ML UDC ONE (12:53)
[2021-02-18 13:17] LABS: Urine Blood Negative (Negative); Urine Glucose Negative (Negative); Urine Protein Negative (Negative)
[2021-02-18 13:18] LABS: Absolute Lymphocytes (CBC) 2.3 K/uL (0.7-4.9); Hematocrit 38.7 % (36.0-45.0); Lymphocytes % 40.5 % (15.3-44.8); MPV 8.6 fL (7.6-11.3); RBC Red Blood Cell Count 4.47 M/uL (3.86-4.86)
[2021-02-18 13:42] LABS: ALT/SGPT 31 U/L (12-78); AST/SGOT 14 U/L (15-37); Albumin 3.8 g/dL (3.4-5.0); Alkaline Phosphatase 109 U/L (45-117); BUN Blood Urea Nitrogen 6 mg/dL (7-18); Bicarbonate 30 mmol/L (21-32); Bilirubin Direct < 0.1 mg/dL (0-0.2); Bilirubin Total 0.2 mg/dL (0.2-1.0); Glucose Level 110 mg/dL (74-106); Lipase 87 U/L (73-393); Protein, Total 7.9 g/dL (6.4-8.2); Sodium Level 140 mmol/L (136-145)
[2021-02-18 13:48] LABS: Urine Bacteria <20 /HPF (<20); Urine RBC <5 /HPF (NONE SEEN)
--- NOTE | 2021-02-18 14:21 | RAD REPORT ---
EXAM DESCRIPTION: CTAbdomen Pelvis W Contrast - 02/18/2021 2:09 pm CLINICAL HISTORY: ABD PAIN COMPARISON: CT ABD PELVIS W CONTRAST dated 11/14/2011 TECHNIQUE: CT of the abdomen and pelvis was performed. All CT scans are performed using dose optimization technique as appropriate and may include automated exposure control or mA/KV adjustment according to patient size. FINDINGS: Lower chest: No acute abnormality. Small hiatal hernia. Liver: Hepatic steatosis. Biliary: Cholecystectomy. Stomach: No significant focal abnormality. Duodenum: No significant focal abnormality. Pancreas: No significant abnormality. Spleen: No significant abnormality. Adrenal: No suspicious lesions. Kidney/ureter: No hydronephrosis. No renal calculi. Retroperitoneum: No retroperitoneal adenopathy. Vascular: No aneurysm. Bowel: No significant focal abnormality. No appendicitis. Peritoneum: No ascites or free air. Bladder: Grossly unremarkable. Reproductive: No adnexal masses. Bones: No acute fracture. Other: n/a IMPRESSION: No acute intra-abdominal or pelvic finding. Cholecystectomy.
[2021-02-18] MEDS ORDERED: MEPERIDINE HCL 25 MG/ML SYR ONE ×2 (14:41→15:26)
[2021-02-18 14:56] LABS: SARS-COV-2 RT PCR NEGATIVE (NEGATIVE)
[2021-02-18] MEDS ORDERED: PROMETHAZINE INJ 25 MG/ML AMP ONE (15:26)
--- NOTE | 2021-02-18 15:58 | EDPHYS ---
Physician Documentation [facility] Name: Luis Felipe Nova Age: 41 yrs Sex: Female : 1980 Arrival Date: 02/18/2021 Time: 12:12 Bed 9 Private MD: JAMES JORDAN ED Physician Justice Cramer HPI: 02/18 14:12 This 41 yrs old Female presents to ER via Ambulatory with complaints of Abdominal Pain, rn Nausea, Diarrhea. 14:13 The patient presents to the emergency department with nausea, vomiting, diarrhea, rn abdominal pain, of the epigastric area and umbilical area, described as achy, and does not radiate. Onset: The symptoms/episode began/occurred 2 week(s) ago. Possible causes: unknown. The symptoms are aggravated by nothing. The symptoms are alleviated by food . Associated signs and symptoms: Pertinent positives: abdominal pain, diarrhea, nausea, vomiting, Pertinent negatives: fever, GI bleeding. Severity of symptoms: At their worst the symptoms were moderate in the emergency department the symptoms are unchanged. The patient has experienced similar episodes in the past. 14:39 Patient reports seen by PCP recently prescribed Protonix that is not helping. Has had rn cholecystectomy. Reports upper and mid abdominal pain for 2 weeks that has not gotten better. PCP had ordered a CT scan but she had not obtained yet. No blood in stool.. 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 - Social history:: Smoking status: Patient denies any tobacco usage or history of. - Family history:: not pertinent. - Hospitalizations: : No recent hospitalization is reported. ROS: 14:39 Constitutional: Negative for fever, chills, and weight loss, Eyes: Negative for injury, rn pain, redness, and discharge, Cardiovascular: Negative for chest pain, palpitations, and edema, Respiratory: Negative for shortness of breath, cough, wheezing, and pleuritic chest pain, Abdomen/GI: Positive for abdominal pain/nausea/vomiting/diarrhea Back: Negative for injury and pain, : Negative for injury, bleeding, discharge, and swelling, MS/Extremity: Negative for injury and deformity, Skin: Negative for injury, rash, and discoloration, Neuro: Negative for headache, numbness, tingling, and seizure. Exam: 14:39 Constitutional: This is a well developed, well nourished patient who is awake, alert, rn appears uncomfortable Head/Face: Normocephalic, atraumatic. Eyes: Periorbital areas with no swelling, redness, or edema. Cardiovascular: Tachycardic, regular. No pulse deficits. Respiratory: No increased work of breathing, no retractions or nasal flaring. Abdomen/GI: Soft, epigastric tenderness, no masses Skin: Warm, dry MS/ Extremity: Pulses equal, no cyanosis. Neuro: Awake and alert, GCS 15 Vital Signs: 12:20 BP 133 / 105; Pulse 114; Resp 19; Temp 98.2; Pulse Ox 98% on R/A; Weight 104.33 kg; jl7 Height 5 ft. 11 in. (180.34 cm); Pain 8/10; 12:59 BP 129 / 99; Pulse 109; Resp 19; Pulse Ox 99% on R/A; ld1 15:35 BP 131 / 95; Pulse 94; Resp 18; Pulse Ox 99% on R/A; ld1 16:21 BP 126 / 91; Pulse 92; Resp 18; Pulse Ox 100% on R/A; Pain 2/10; ld1 12:20 Body Mass Index 32.08 (104.33 kg, 180.34 cm) [facility] MDM: 12:27 Patient medically screened. rn 15:55 Differential diagnosis: Nonspecific abd pain, gastritis, pancreatitis, appendicitis, rn diverticulitis, viral gastroenteritis, gastroenteritis. Data reviewed: vital signs, nurses notes, lab test result(s), radiologic studies, CT scan, and as a result, I will discharge patient. Counseling: I had a detailed discussion with the patient and/or guardian regarding: the historical points, exam findings, and any diagnostic results supporting the discharge/admit diagnosis, lab results, radiology results, the need for outpatient follow up, to return to the emergency department if symptoms worsen or persist or if there are any questions or concerns that arise at home. Response to treatment: the patient's symptoms have mildly improved after treatment, and as a result, I will discharge patient. Special discussion: Based on the patient's Hx, exam, and Dx evaluation, there is no indication for emergent surgery or inpatient Tx. It is understood by the patient/guardian that if the Sx's persist or worsen they need to return immediately for re-evaluation. I discussed with the patient/guardian in detail that at this point there is no indication for admission to the hospital. It is understood, however, that if the symptoms persist or worsen the patient needs to return immediately for re-evaluation. Based on the history and exam findings, there is no indication for further emergent testing or inpatient evaluation. 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 ED course: CT abdomen pelvis without acute findings. COVID-negative. Lab work unremarkable. No acute reason for abdominal pain. CT does show small hiatal hernia and had a physician write for Protonix, could be ulcer versus gastroesophageal reflux. Has already had a cholecystectomy. Appendix looks normal. Will discharge home with as needed Zofran and GI follow-up.. 02/18 12:35 Order name: Basic Metabolic Panel; Complete Time: 14: rn 02/18 12:35 Order name: CBC with Diff; Complete Time: 14: rn 02/18 12:35 Order name: Hepatic Function; Complete Time: 14: rn 02/18 12:35 Order name: Lipase; Complete Time: 14: rn 02/18 12:35 Order name: Urine Microscopic Only; Complete Time: 14: rn 02/18 12:35 Order name: COVID-19/FLU A+B (Document "Date of Onset" if Symptomatic); Complete Time: rn 14:59 02/18 12:35 Order name: CT Abd/Pelvis - IV Contrast Only; Complete Time: 14:26 rn 02/18 13:17 Order name: Urine Dipstick-Ancillary; Complete Time: 14:01 EDMS 02/18 13:33 Order name: Urine --Ancillary (enter results); Complete Time: 14: bd 02/18 12:35 Order name: IV Saline Lock; Complete Time: 13:18 rn 02/18 12:35 Order name: Labs collected and sent; Complete Time: 13:18 rn 02/18 12:35 Order name: Urine Dipstick-Ancillary (obtain specimen); Complete Time: 13:18 rn Administered Medications: 12:56 Drug: GI Cocktail without - (Maalox Suspension 30 ml, Lidocaine Liquid 2 % 15 ld1 ml) Route: PO; 15:34 Follow up: Response: No adverse reaction ld1 13:17 Drug: NS 0.9% 1000 ml Route: IV; Rate: 1000 ml; Site: right antecubital; ld1 13:18 Drug: morphine 4 mg Route: IVP; Site: right antecubital; ld1 15:34 Follow up: Response: No adverse reaction ld1 13:18 Drug: Zofran (Ondansetron) 4 mg Route: IVP; Site: right antecubital; ld1 15:34 Follow up: Response: No adverse reaction ld1 14:41 Drug: Demerol (meperidine) 25 mg Route: IVP; Site: right antecubital; ld1 14:41 Follow up: Response: No adverse reaction ld1 15:34 Drug: Demerol (meperidine) 25 mg Route: IVP; Site: right antecubital; ld1 15:35 Follow up: Response: No adverse reaction ld1 15:34 Drug: Phenergan (promethazine) 12.5 mg Route: IVP; Site: right antecubital; ld1 15:35 Follow up: Response: No adverse reaction ld1 Disposition Summary: 02/18/21 15:57 Discharge Ordered Location: Home rn Problem: new rn Symptoms: have improved rn Condition: Stable rn Diagnosis - Upper abdominal pain, unspecified rn Followup: rn - With: Private Physician - When: As needed - Reason: Recheck today's complaints, Re-evaluation by your physician Discharge Instructions: - Discharge Summary Sheet rn - Abdominal Pain, Adult rn Forms: - Medication Reconciliation Form rn - Thank You Letter rn - 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
--- NOTE | 2021-02-18 15:58 | ER ---
Nurse's Notes [facility] Name: Luis Felipe Nova Age: 41 yrs Sex: Female : 1980 Arrival Date: 02/18/2021 Time: 12:12 Bed 9 Private MD: JAMES JORDAN Diagnosis: Upper abdominal pain, unspecified Presentation: 02/18 12:20 Chief complaint: Patient states: Upper abdominal pain x 2 weeks. hurts worse after jl7 eating, hx of cholecystectomy 10 years ago, report N/V/D and headache started 3 days ago. Coronavirus screen: Vaccine status: Patient reports being unvaccinated. diarrhea, headache, nausea, vomiting. Client presents with at least one sign or symptom that may indicate coronavirus-19. Standard/surgical mask placed on the client. Ebola Screen: No symptoms or risks identified at this time. Initial Sepsis Screen: Does the patient meet any 2 criteria? No. Patient's initial sepsis screen is negative. Does the patient have a suspected source of infection? No. Patient's initial sepsis screen is negative. Risk Assessment: Do you want to hurt yourself or someone else? Patient reports no desire to harm self or others. Onset of symptoms was February 04, 2021. 12:20 Method Of Arrival: Ambulatory [facility] 12:20 Acuity: BRIANNA 3 jl7 Triage Assessment: 12:22 General: Appears in no apparent distress. uncomfortable, ill, Behavior is calm, jl7 cooperative, appropriate for age. Pain: Complains of pain in right upper quadrant and left upper quadrant Pain does not radiate. Pain currently is 8 out of 10 on a pain scale. Quality of pain is described as burning, stabbing, Pain began x 2 weeks Is continuous. Cardiovascular: Patient's skin is warm and dry. Respiratory: Airway is patent Respiratory effort is even, unlabored, Respiratory pattern is regular, symmetrical. GI: Reports upper abdominal pain, diarrhea, nausea, vomiting. Derm: Skin is pink, warm \\T\\ dry. 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 - Social history:: Smoking status: Patient denies any tobacco usage or history of. - Family history:: not pertinent. - Hospitalizations: : No recent hospitalization is reported. Screenin:28 Abuse screen: Denies threats or abuse. Denies injuries from another. Nutritional ld1 screening: No deficits noted. Tuberculosis screening: No symptoms or risk factors identified. Fall Risk None identified. Assessment: 12:28 GI: Bowel sounds Abd is soft and non tender. ld1 12:59 General: Appears in no apparent distress. comfortable, Behavior is calm, cooperative, ld1 appropriate for age. Pain: Complains of pain in abdomen Pain does not radiate. Pain currently is 8 out of 10 on a pain scale. Quality of pain is described as burning, stabbing, throbbing, Pain began gradually, Is continuous. Neuro: Level of Consciousness is awake, alert, obeys commands, Oriented to person, place, time, situation. Cardiovascular: Capillary refill < 3 seconds Patient's skin is warm and dry. Respiratory: Airway is patent Respiratory effort is even, unlabored. GI: Abdomen is flat, non-distended, Reports lower abdominal pain, upper abdominal pain, nausea. GI: Reports diarrhea. : No signs and/or symptoms were reported regarding the genitourinary system. EENT: No signs and/or symptoms were reported regarding the EENT system. Derm: No signs and/or symptoms reported regarding the dermatologic system. 15:35 Reassessment: Patient appears in no apparent distress at this time. Patient and/or ld1 family updated on plan of care and expected duration. Pain level reassessed. Patient is alert, oriented x 3, equal unlabored respirations, skin warm/dry/pink. 16:21 Reassessment: Patient appears in no apparent distress at this time. No changes from ld1 previously documented assessment. Patient and/or family updated on plan of care and expected duration. Pain level reassessed. Patient is alert, oriented x 3, equal unlabored respirations, skin warm/dry/pink. Vital Signs: 12:20 BP 133 / 105; Pulse 114; Resp 19; Temp 98.2; Pulse Ox 98% on R/A; Weight 104.33 kg; jl7 Height 5 ft. 11 in. (180.34 cm); Pain 8/10; 12:59 BP 129 / 99; Pulse 109; Resp 19; Pulse Ox 99% on R/A; ld1 15:35 BP 131 / 95; Pulse 94; Resp 18; Pulse Ox 99% on R/A; ld1 16:21 BP 126 / 91; Pulse 92; Resp 18; Pulse Ox 100% on R/A; Pain 2/10; ld1 12:20 Body Mass Index 32.08 (104.33 kg, 180.34 cm) jl7 ED Course: 12:12 Patient arrived in ED. am2 12:12 JAMES JORDAN is Private Physician. am2 12:22 Triage completed. jl7 12:25 Arm band placed on right wrist. Patient placed in waiting room, Patient notified of jl7 wait time. 12:27 Justice Cramer MD is Attending Physician. rn 12:28 No provider procedures requiring assistance completed. ld1 12:29 Patient has correct armband on for positive identification. Bed in low position. Call ld1 light in reach. Side rails up X 1. 12:59 Claudia Mason, EKESHA is Primary Nurse. ld1 12:59 Pulse ox on. NIBP on. Door closed. Noise minimized. Warm blanket given. ld1 13:18 COVID-19/FLU A+B (Document "Date of Onset" if Symptomatic) Sent. ld1 13:18 Urine Microscopic Only Sent. ld1 13:18 Inserted saline lock: 20 gauge in right antecubital area, using aseptic technique. ld1 Blood collected. 14:08 CT Abd/Pelvis - IV Contrast Only In Process Unspecified. EDMS 16:22 IV discontinued, intact, bleeding controlled, No redness/swelling at site. ld1 Administered Medications: 12:56 Drug: GI Cocktail without - (Maalox Suspension 30 ml, Lidocaine Liquid 2 % 15 ld1 ml) Route: PO; 15:34 Follow up: Response: No adverse reaction ld1 13:17 Drug: NS 0.9% 1000 ml Route: IV; Rate: 1000 ml; Site: right antecubital; ld1 13:18 Drug: morphine 4 mg Route: IVP; Site: right antecubital; ld1 15:34 Follow up: Response: No adverse reaction ld1 13:18 Drug: Zofran (Ondansetron) 4 mg Route: IVP; Site: right antecubital; ld1 15:34 Follow up: Response: No adverse reaction ld1 14:41 Drug: Demerol (meperidine) 25 mg Route: IVP; Site: right antecubital; ld1 14:41 Follow up: Response: No adverse reaction ld1 15:34 Drug: Demerol (meperidine) 25 mg Route: IVP; Site: right antecubital; ld1 15:35 Follow up: Response: No adverse reaction ld1 15:34 Drug: Phenergan (promethazine) 12.5 mg Route: IVP; Site: right antecubital; ld1 15:35 Follow up: Response: No adverse reaction ld1 Outcome: 12:28 Condition: good ld1 15:57 Discharge ordered by . rn 16:22 Discharged to home ambulatory. ld1 16:22 Discharge instructions given to patient. 16:22 Patient left the ED. ld1 Signatures: Dispatcher [employer] EDMS Justice Cramer MD MD rn Leal, Jahala, RN RN jl7 Altagracia Pitt Lauren, RN RN ld1 Corrections: (The following items were deleted from the chart) : 12:22 Allergies: Reglan; jl7 ld1
[2021-02-18 16:45] VITALS: TEMP 98.2
[2021-02-18 16:53] VITALS: BP 126/91; O2SAT 100
== END 2021-02-18 16:22 | disposition home or self-care (01) ==
LOC: ER 12:10
DX: R10.10 Upper abdominal pain, unspecified (principal); Z88.2 Allergy status to sulfonamides; Z88.8 Allergy status to other drugs, medicaments and biological substances; Z20.822 Contact with and (suspected) exposure to COVID-19
CPT/HCPCS: 85025; 80048; 36415; 81025; 80076; 83690; 0240U; 74177; Q9967; J2550; J2175 ×2; J7030; J2405; 81003; 81015